=== PATIENT | female | born 1980 | race Caucasian/White ===

== ENCOUNTER 2021-05-11 13:19 | Outpatient (CLI) | payer OTHER, SELFPAY ==
[2021-05-11 15:03] LABS: Hepatitis B Surface Anti Res Negative
== END 2021-05-11 13:20 | disposition home or self-care (01) ==
LOC: ANHLAB 13:23
PROVIDERS: Visit Provider Surgery
DX: Z11.59 Encounter for screening for other viral diseases (principal)
CPT/HCPCS: 36415; 86706

== ENCOUNTER 2022-04-12 12:07 | Emergency (ER) | payer OTHER, SELFPAY ==
[2022-04-12] VITALS (9 sets, daily range): BP systolic 72–200; BP diastolic 57–94; PULSE 78–92; RESP 15–27; TEMP 36.1; O2SAT 98–100
--- NOTE | ~2022-04-12 | XR_ITS ---
EXAMINATION: XR chest 1V portable 04/12/2022 12:54 INDICATION: Upper tension, dizziness and chest spine PROCEDURE: AP portable chest COMPARISON: 02/08/2022 FINDINGS: The lungs are clear. The cardiomediastinal silhouette is within normal limits. There are no pleural effusions. There is no pneumothorax suspected. IMPRESSION: 1: NO ACUTE CARDIOPULMONARY DISEASE. Reviewed, dictated and finalized at location B.
--- NOTE | 2022-04-12 12:09 | ECG_ITS ---
Measurements Intervals [place] Rate: 92 P: 38 CT: 134 QRS: 2 QRSD: 80 T: 37 QT: 342 QTc: 423 Interpretive Statements SINUS RHYTHM LOW QRS VOLTAGE IN PRECORDIAL LEADS [QRS DEFLECTION < 1.0 mV IN CHEST LEADS] NO PREVIOUS ECG AVAILABLE FOR COMPARISON Electronically Signed On 04-12-2022 22:13:33 CDT by Pebbles Haskins M.D.
[2022-04-12 13:28] LABS: Basophils Absolute Auto 0.1 K/mm3 (0.0-0.1); Eosinophils Absolute Auto 0.2 K/mm3 (0-0.3); Eosinophils Percent Auto 1.9 % (0-4.4); Hematocrit 37.5 % (37.0-47.0); Hemoglobin 12.1 g/dL (12.0-15.0); Immature Granulocyte Absolute 0.04 K/mm3 (0.00-0.031); Immature Granulocyte Percent A 0.4 % (0-0.5); Lymphocytes Absolute Auto 2.19 K/mm3 (0.9-3.2); Lymphocytes Percent Auto 24.5 % (18.3-44.2); Mean Corpuscular HGB Conc 32.3 g/dl (32-36); Mean Corpuscular Hemoglobin 29.2 pg (26-34); Mean Corpuscular Volume 90.4 fl (80-100); Mean Platelet Volume 9.3 fl (7.4-10.4); Monocytes Absolute Auto 0.6 K/mm3 (0.1-0.6); Monocytes Percent Auto 6.6 % (2.6-8.5); Neutrophils Absolute Auto 5.9 K/mm3 (1.3-6.7); Neutrophils Percent Auto 65.6 % (45.5-73.1); Platelet Count Result 356 k/mm3 (150-375); Red Blood Count 4.15 M/mm3 (4.2-5.4); Red Cell Distribution Width 11.4 % (11.5-14.5); White Blood Count 8.9 K/mm3 (4.5-10.0)
[2022-04-12 13:32] LABS: Alanine Aminotransferase 16 U/L (6-35); Albumin Level 3.6 g/dL (3.5-5.1); Alkaline Phosphatase 81 U/L (38-126); Anion Gap 6 mmol/L (8-16); Aspartate Amino Transferase 25 U/L (14-36); Bilirubin,Total 0.3 mg/dL (0.2-1.3); Blood Urea Nitrogen 23 mg/dL (7-17); Calcium 8.7 mg/dL (8.4-10.2); Carbon Dioxide 25 mmol/L (22-30); Chloride 101 mmol/L (98-107); Estimated CRCL calculation 53 ml/min; Estimated Glomerular Filt Rate 45; Glucose 188 mg/dL (65-110); Potassium 5.1 mmol/L (3.4-5.0); Sodium 132 mmol/L (137-145)
[2022-04-12 13:45] LABS: NT Pro B Type Natriuretic Pept 111 pg/mL (5-100); Troponin I < 0.012 ng/mL (0.000-0.034)
--- NOTE | 2022-04-12 14:00 | ED.GENADULT ---
HPI - General Adult General Chief complaint: Arrhythmia/Palpitations Stated complaint: palpations Time Seen by Provider: 04/12/22 12:19 Source: patient Mode of arrival: ambulatory Limitations: no limitations History of Present Illness HPI narrative: 42-year-old with a history of hypertension, hyperlipidemia, diabetes, CKD here with complaints of having high blood pressure, not feeling well since this morning. Patient states for the past 1 week she has been having high blood pressure and was recently started on Coreg. Patient states that while she was at work her blood pressure was found to be high. She denied any chest pain. Onset (ago): week(s) (1) Exacerbating factors: none Associated symptoms: denies other symptoms Related Data Home Medications Medication Instructions Recorded Confirmed atorvastatin 20 mg tablet tablet 04/12/22 bupropion HCl (smoking deter) 150 tablet PO 04/12/22 mg tablet,12 hr sustained-release(smoking deterrent) carvedilol 6.25 mg tablet tablet 04/12/22 clonazepam 0.5 mg tablet tablet 04/12/22 isosorbide mononitrate 30 mg tablet PO 04/12/22 tablet,extended release 24 hr losartan 100 tablet 04/12/22 mg-hydrochlorothiazide 25 mg tablet venlafaxine 150 mg cap PO 04/12/22 04/12/22 capsule,extended release 24 hr Allergies Allergy/AdvReac Type Severity Reaction Status Date / Time propoxyphene AdvReac Itching Verified 04/12/22 12:20 [From Claire-N 100] Review of Systems Review of Systems: All systems reviewed & are unremarkable except as noted in HPI and below Constitutional: Constitutional: Reports no additional constitutional complaints Eyes: Eyes: Reports no additional eye complaints ENT: Reports system reviewed and no additional complaints, except as documented Cardiovascular: Cardiovascular: Reports as per HPI Respiratory: Respiratory: Reports no additional respiratory complaints Gastrointestinal: Gastrointestinal: Reports as per HPI Musculoskeletal: Musculoskeletal: Reports no additional musculoskeletal complaints Neurologic: Reports system reviewed and no additional complaints, except as documented Exam Narrative: GENERAL: Well-appearing, well-nourished, and in no acute distress. HEAD: Normocephalic, atraumatic. EYES: PERRLA and EOMI. NECK: Supple. CHEST: Clear to auscultation. No respiratory distress. HEART: Regular rate and rhythm. No murmur heard. Normal peripheral pulses. ABDOMEN: Soft, nontender, nondistended, normal active bowel sounds. EXTREMITIES: Normal range of motion. No edema. SKIN: Warm, dry, no rash. NEURO: No focal deficits. Alert and oriented x3. PSYCH: Normal mood and affect. Course Course Emergency Course: Patient feeling much better. Informed her about her lab work, x-ray findings. Advised her to continue her home medications, follow-up with her primary doctor Vital Signs Vital signs: Vital Signs Temperature 36.1 C L 04/12/22 12:13 Pulse Rate 92 04/12/22 12:13 Respiratory Rate 16 04/12/22 12:13 Blood Pressure 200/75 H 04/12/22 12:13 Pulse Oximetry 100 04/12/22 12:13 Oxygen Delivery Room Air 04/12/22 12:13 Temperature 36.1 C L 04/12/22 12:13 Pulse Rate 78 04/12/22 12:22 Respiratory Rate 16 04/12/22 12:22 Blood Pressure 197/79 H 04/12/22 12:22 Pulse Oximetry 98 04/12/22 12:22 Oxygen Delivery Room Air 04/12/22 12:13 Medical Decision Making Medical Records Medical records reviewed: Yes I reviewed the external patient's medical records. Vital Signs Vital Signs: Vital Signs Temperature 36.1 C L 04/12/22 12:13 Pulse Rate 92 04/12/22 12:13 Respiratory Rate 16 04/12/22 12:13 Blood Pressure 200/75 H 04/12/22 12:13 Pulse Oximetry 100 04/12/22 12:13 Oxygen Delivery Room Air 04/12/22 12:13 Temperature 36.1 C L 04/12/22 12:13 Pulse Rate 78 04/12/22 12:22 Respiratory Rate 16 04/12/22 12:22 Blood Pressure 197/79 H 04/12/22 12:22 Pulse Oximetr
== END 2022-04-12 14:14 | disposition home or self-care (01) ==
PROVIDERS: Emergency Provider Family Medicine
DX: I12.9 Hypertensive chronic kidney disease with stage 1 through stage 4 chronic kidney disease, or unspecified chronic kidney disease (principal); F41.9 Anxiety disorder, unspecified; E11.22 Type 2 diabetes mellitus with diabetic chronic kidney disease; N18.9 Chronic kidney disease, unspecified; E78.5 Hyperlipidemia, unspecified
CPT/HCPCS: 36415; 71045; 80053; 83880; 84484; 85025; 93005; 99284

== ENCOUNTER 2022-04-20 10:56 | Outpatient (CLI) | payer OTHER, SELFPAY ==
--- NOTE | ~2022-04-20 | US_ITS ---
EXAMINATION: US thyroid DATE: 04/20/2022 11:28 INDICATION: Thyroid nodule. TECHNIQUE: Multiple ultrasound images of the thyroid were obtained. COMPARISON: None. FINDINGS: The right thyroid lobe measures 5.9 x 1.8 x 1.5 cm. The left thyroid lobe measures 4.9 x 1.4 x 1.5 c m. In the right thyroid lobe, there is a 14 mm mixed cystic and solid, hypoechoic, wider than tall n odule with lobulated margin without echogenic foci (TR4). In the left thyroid lobe, there is a 10 mm solid, hypoechoic, wider than tall nodule with lobulated margin without echogenic foci (TR4). IMPRESSION: 1. Thyroid nodules. Thyroid ultrasound is recommended in one year. Reviewed, dictated and finalized at location B.
== END 2022-04-20 10:57 | disposition home or self-care (01) ==
PROVIDERS: PCP Hospitalist; Visit Provider Nurse Practitioner
DX: E04.2 Nontoxic multinodular goiter (principal)
CPT/HCPCS: 76536

== ENCOUNTER 2022-05-02 07:24 | Outpatient (CLI) | payer OTHER, SELFPAY ==
[2022-05-02 08:59] LABS: Hemoglobin A1C 9.9 % (<5.7)
[2022-05-02 09:00] LABS: Alanine Aminotransferase 14 U/L (6-35); Albumin Level 3.8 g/dL (3.5-5.1); Alkaline Phosphatase 80 U/L (38-126); Anion Gap 6 mmol/L (8-16); Aspartate Amino Transferase 16 U/L (14-36); Bilirubin,Total 0.3 mg/dL (0.2-1.3); Blood Urea Nitrogen 25 mg/dL (7-17); Carbon Dioxide 26 mmol/L (22-30); Chloride 104 mmol/L (98-107); Cholesterol 148 mg/dL (0-200); Estimated Glomerular Filt Rate 38; Glucose 255 mg/dL (65-110); HDL Direct 37 mg/dL; Potassium 5.4 mmol/L (3.4-5.0); Sodium 136 mmol/L (137-145); Triglycerides 82 mg/dL (<150)
[2022-05-02 09:11] LABS: Creatinine Urine 97.7 mg/dL
[2022-05-02 09:11] LABS: LDL Cholesterol Direct 69 mg/dL
[2022-05-02 09:22] LABS: Free T4 Free Thyroxine 1.27 ng/mL (0.78-2.19)
[2022-05-02 10:33] LABS: MALB Creatinine Ratio 1150.4 mg/g (0-30)
[2022-05-04 21:01] LABS: Triiodothyronine T3 Free 3.2 pg/mL (2.3-4.2)
[2022-05-05 07:30] LABS: Thyroid Peroxidase Antibodies <1 IU/mL (<9)
== END 2022-05-02 07:25 | disposition home or self-care (01) ==
PROVIDERS: PCP Hospitalist; Visit Provider Nurse Practitioner
DX: E04.1 Nontoxic single thyroid nodule (principal); E78.5 Hyperlipidemia, unspecified; E10.65 Type 1 diabetes mellitus with hyperglycemia
CPT/HCPCS: 36415; 80053; 80061; 82043; 83036; 84439; 84443; 84481; 86376

== ENCOUNTER 2022-11-20 12:52 | Emergency (ER) | payer MEDICAID, SELFPAY ==
[2022-11-20 13:10] VITALS: BP 136/57; PULSE 69; RESP 18; TEMP 36.7; O2SAT 93
--- NOTE | 2022-11-20 13:14 | ED.URI ---
HPI - URI/Sore Throat General Chief Complaint: Upper Respiratory Infection Stated Complaint: Nausea,Fatigue,Weakness,SOB,Cough Time Seen by Provider: 11/20/22 13:35 Source: patient and RN notes reviewed Mode of arrival: ambulatory Limitations: no limitations History of Present Illness HPI Narrative: 42-year-old female presents with concern for 2 week history of cough, general weakness, body aches, fatigue, difficulty sleeping due to cough. She reports shortness of breath. She reports history of smoking and asthma. She reports she has been taking [id number] medications with little relief, she ordered and nebulizer from [employer] and last used that last night. MD elicited complaint: cough Related Data Home Medications Medication Instructions Recorded Confirmed atorvastatin 20 mg tablet 20 tablet PO DAILY 04/12/22 11/20/22 bupropion HCl (smoking deter) 150 150 mg PO DAILY 04/12/22 11/20/22 mg tablet,12 hr sustained-release(smoking deterrent) carvedilol 6.25 mg tablet 6.25 tablet PO DAILY 04/12/22 11/20/22 clonazepam 0.5 mg tablet 0.5 tablet PO DAILY 04/12/22 11/20/22 isosorbide mononitrate 30 mg 30 mg PO DAILY 04/12/22 11/20/22 tablet,extended release 24 hr venlafaxine 150 mg 150 mg PO DAILY 04/12/22 11/20/22 capsule,extended release 24 hr amlodipine 10 mg tablet 10 mg PO DAILY 11/20/22 11/20/22 Allergies Allergy/AdvReac Type Severity Reaction Status Date / Time propoxyphene AdvReac Itching Verified 11/20/22 13:20 [From Claire-N 100] Review of Systems Review of Systems: CONSTITUTIONAL: Reports fatigue, malaise, generalized weakness EYES: Denies visual changes, redness, or discharge. ENT: Reports rhinorrhea, congestion. Denies sinus pain, otalgia and sore throat. CARDIOVASCULAR: Denies chest pain, palpitations, or edema. RESPIRATORY: Reports cough, dyspnea. GASTROINTESTINAL: Denies abdominal pain, nausea, vomiting, diarrhea SKIN: Denies rash or itching. MUSCULOSKELETAL: Reports myalgia. NEUROLOGIC: Denies headache. All systems reviewed & are unremarkable except as noted in HPI and below [facility] Comments At time of signature, agree with nursing past medical, surgical, social and family history. There is no relevant family history pertinent to the presenting complaint Exam Narrative: GENERAL: Well-appearing, well-nourished, and in no acute distress. HEAD: Normocephalic EYES: PERRLA, conjunctivae clear ENT: Nares clear, turbinates edematous and erythematous. Mucous membranes moist. TM pearly echevarria with dull light reflex bilaterally; no tragal tenderness. Oropharynx not erythematous without lesions. Tonsils not enlarged and without exudate, no drooling, no hoarseness, no trismus, uvula midline. NECK: Supple. No lymphadenopathy CHEST: Aeration fair, otherwise Clear to auscultation, breath sounds equal. No wheezing, rhonchi, rales, or stridor. No respiratory distress, speaks in full sentences. Cough noted HEART: Regular rate and rhythm. No murmur heard. SKIN: Warm, dry, no rash. NEURO: Alert and oriented x3. PSYCH: Normal mood and affect Course Course Emergency Course: Patient is aware of diagnosis, understands and agrees to treatment plan. Anticipatory guidance given. Patient agrees to follow-up as directed and is aware of reasons to seek care at the emergency department. Portions of this record may have been created with voice recognition software Level of Care: Express Care Visit Reevaluation(s) Reevaluation #1: Aeration improved, SpO2 increased to 96% after DuoNeb treatment. Discussed interaction between Albuterol and Carvedilol, advised to start steroid and follow-up with her PCP regarding ongoing plan of care. Date: 11/20/22 Time: 14:30 Vital Signs Vital signs: Reviewed. MDM - URI/Sore Throat MDM Narrative Medical decision making narrative: Differential diagnosis considered: Adorno virus, strep pharyngitis, allergic rhinitis, upper respiratory tract infection, sinusitis, rhinosin
[2022-11-20] MEDS: IPRATROPIUM BR 0.02% INH SOLN 0.5 MG/2.5 ML VIAL INHALATION (14:04)
[2022-11-20] MEDS: ALBUTEROL SULFATE NEB 2.5 MG/3 ML INH INHALATION (14:04)
[2022-11-20 14:10] VITALS: O2SAT 93
[2022-11-20 14:46] VITALS: PULSE 66; O2SAT 96
== END 2022-11-20 14:37 | disposition home or self-care (01) ==
PROVIDERS: Emergency Provider Nurse Practitioner; PCP Hospitalist
DX: J40 Bronchitis, not specified as acute or chronic (principal); J32.9 Chronic sinusitis, unspecified
CPT/HCPCS: 94640; 99213; G0463

== ENCOUNTER 2023-03-07 12:00 | Outpatient (CLI) | payer OTHER, SELFPAY ==
[2023-03-07 12:43] LABS: Alanine Aminotransferase 38 U/L (6-35); Albumin Level 4.2 g/dL (3.5-5.1); Alkaline Phosphatase 98 U/L (38-126); Anion Gap 9 mmol/L (8-16); Aspartate Amino Transferase 27 U/L (14-36); Bilirubin,Total 0.4 mg/dL (0.2-1.3); Blood Urea Nitrogen 33 mg/dL (7-17); Calcium 9.3 mg/dL (8.4-10.2); Carbon Dioxide 27 mmol/L (22-30); Chloride 100 mmol/L (98-107); Cholesterol 165 mg/dL (0-200); Estimated Glomerular Filt Rate 33; Glucose 182 mg/dL (65-110); HDL Direct 58 mg/dL; Potassium 4.3 mmol/L (3.4-5.0); Sodium 136 mmol/L (137-145); Triglycerides 98 mg/dL (<150)
[2023-03-07 12:54] LABS: LDL Cholesterol Direct 76 mg/dL
[2023-03-07 13:11] LABS: Creatinine Urine 61.2 mg/dL
[2023-03-07 13:37] LABS: Free T4 Free Thyroxine 1.22 ng/mL (0.78-2.19)
[2023-03-07 14:37] LABS: Hemoglobin A1C 9.3 % (<5.7)
[2023-03-07 16:13] LABS: MALB Creatinine Ratio 1385.5 mg/g (0-30); Microalbumin Urine Random 847.9 mg/L (0-16.7)
== END 2023-03-07 12:01 | disposition home or self-care (01) ==
LOC: ANHLAB 12:02
PROVIDERS: PCP Hospitalist; Visit Provider Internal Medicine Endocrinology, Diabetes & Metabolism
DX: E10.65 Type 1 diabetes mellitus with hyperglycemia (principal); E78.5 Hyperlipidemia, unspecified; E04.1 Nontoxic single thyroid nodule
CPT/HCPCS: 36415; 80053; 80061; 82043; 83036; 84439; 84443

== ENCOUNTER 2023-06-02 15:31 | Emergency (ER) | payer OTHER, SELFPAY ==
--- NOTE | 2023-06-02 15:32 | ED.SKABFB ---
HPI - Skin/Abscess/Foreign Bdy General Chief complaint: Skin/Abscess/Foreign Body Stated complaint: Insect Bite Lt Breast Time Seen by Provider: 06/02/23 15:32 Source: patient Mode of arrival: ambulatory Limitations: no limitations History of Present Illness HPI narrative: Yudelka is a 43-year-old female patient presenting to the clinic today with complaints of a insect bite to her left breast. She reports she noticed a spider night and had a red area to the top of her left breast the next day. She reports that this came up to be a pustule and she popped it. Is having some redness and sharp pain at times. No fever or chills. She is type 1 diabetic Related Data Home Medications Medication Instructions Recorded Confirmed atorvastatin 20 mg tablet 20 tablet PO DAILY 04/12/22 06/02/23 bupropion HCl (smoking deter) 150 150 mg PO DAILY 04/12/22 06/02/23 mg tablet,12 hr sustained-release(smoking deterrent) carvedilol 6.25 mg tablet 6.25 tablet PO DAILY 04/12/22 06/02/23 clonazepam 0.5 mg tablet 0.5 tablet PO BID 04/12/22 06/02/23 isosorbide mononitrate 30 mg 30 mg PO DAILY 04/12/22 06/02/23 tablet,extended release 24 hr venlafaxine 150 mg 150 mg PO DAILY 04/12/22 06/02/23 capsule,extended release 24 hr amlodipine 10 mg tablet 10 mg PO DAILY 11/20/22 06/02/23 furosemide 40 mg tablet 40 mg PO DAILY 06/02/23 06/02/23 hydrochlorothiazide 25 mg tablet 25 mg PO DAILY 06/02/23 06/02/23 insulin lispro 100 unit/mL See Rx Instructions .Route .COMPLEX 06/02/23 06/02/23 subcutaneous solution (Humalog U-100 Insulin) insulin pump cart,automated,BT 06/02/23 06/02/23 (Omnipod 5 G6 Pods (Gen 5) subcutaneous cartridge) insulin pump cartridge,automated 06/02/23 06/02/23 dose,BT with controller subcutaneous (Omnipod 5 G6 Intro Kit (Gen 5) subcutaneous cartridge with controller) montelukast 5 mg chewable tablet 5 mg PO HS 06/02/23 06/02/23 trazodone 100 mg tablet 100 mg PO HS 06/02/23 06/02/23 Allergies Allergy/AdvReac Type Severity Reaction Status Date / Time propoxyphene AdvReac Mild Itching Verified 06/02/23 15:32 [From Mariaat-N 100] Review of Systems Review of Systems: Pertinent positives per HPI. Patient denies any fever, chills, rash, headache, visual changes, dizziness, cough, runny nose, sore throat, shortness of breath, chest pain, palpitations, nausea, vomiting, diarrhea, constipation, abdominal pain, or any urinary issues. [facility] Comments At the time of my signature, I reviewed and agree with the nursing past medical, surgical, social, and family history. There is no relevant family history pertinent to the patient complaint. Exam Narrative: General: Well-developed, well nourished, in no apparent distress Head: Normocephalic, atraumatic. Cardio: Regular rate and rhythm, s1 and s2 normal, no murmur appreciated. Resp: Clear to auscultation bilaterally, no rhonchi, rales, wheezing or rubs. Integumentary: [place], warm, and dry, redness with scabbed over pustule with 1 cm induration, tender to palpation with mild erythema, no discharge to the top of the left breast at 12:00 p.m. of the nipple Course Course Emergency Course: Portions of this record may have been created with voice recognition software. Level of Care: Express Care Visit Vital Signs Vital signs: Vital signs reviewed MDM - Skin/Abscess/Foreign Bdy MDM Narrative Medical decision making narrative: At the time of visit patient is resting comfortably on exam table. I suspect patient has a localized bacterial skin infection. Since she is diabetic I will place her on doxycycline. Supportive measures were discussed with the patient and she voiced understanding discharge instructions agrees to treatment plan. Differential Diagnosis Differential diagnosis: Likely abscess of skin or subcutaneous tissue, cellulitis, eczema, insect bites, impetigo and contact dermatitis Discharge Plan Discharge Clinical I
[2023-06-02 15:39] VITALS: BP 168/65; PULSE 85; RESP 16; TEMP 36.7; O2SAT 99
== END 2023-06-02 15:51 | disposition home or self-care (01) ==
PROVIDERS: Emergency Provider Nurse Practitioner Family; PCP Internal Medicine
DX: L08.9 Local infection of the skin and subcutaneous tissue, unspecified (principal); B96.89 Other specified bacterial agents as the cause of diseases classified elsewhere; E78.00 Pure hypercholesterolemia, unspecified; I12.9 Hypertensive chronic kidney disease with stage 1 through stage 4 chronic kidney disease, or unspecified chronic kidney disease; E10.22 Type 1 diabetes mellitus with diabetic chronic kidney disease; N18.30 Chronic kidney disease, stage 3 unspecified; F41.9 Anxiety disorder, unspecified
CPT/HCPCS: 99213; G0463

== ENCOUNTER 2023-10-26 11:30 | Emergency (ER) | payer OTHER, SELFPAY ==
--- NOTE | 2023-10-26 11:41 | ED.FEMALEGU ---
HPI - Female Genitourinary General Chief complaint: Urogenital-Female Stated complaint: uti symptoms Time Seen by Provider: 10/26/23 11:40 Source: patient Mode of arrival: ambulatory Limitations: no limitations History of Present Illness HPI Narrative: Milagro is a 43-year-old female patient presents to the clinic today with complaints of possible urinary tract infection. She reports she has had symptoms for 3 days. Complaints of burning, frequency, and pain in the lower abdomen. Also reports foul odor. No fever or chills. Denies any back pain. Is type 1 diabetic. Related Data Home Medications Medication Instructions Recorded Confirmed atorvastatin 20 mg tablet 20 tablet PO DAILY 04/12/22 10/26/23 bupropion HCl (smoking deter) 150 150 mg PO DAILY 04/12/22 10/26/23 mg tablet,12 hr sustained-release(smoking deterrent) carvedilol 6.25 mg tablet 6.25 tablet PO DAILY 04/12/22 10/26/23 clonazepam 0.5 mg tablet 0.5 tablet PO BID 04/12/22 10/26/23 isosorbide mononitrate 30 mg 30 mg PO DAILY 04/12/22 10/26/23 tablet,extended release 24 hr venlafaxine 150 mg 150 mg PO DAILY 04/12/22 10/26/23 capsule,extended release 24 hr amlodipine 10 mg tablet 10 mg PO DAILY 11/20/22 10/26/23 insulin lispro 100 unit/mL See Rx Instructions .Route .COMPLEX 06/02/23 10/26/23 subcutaneous solution (Humalog U-100 Insulin) insulin pump cart,automated,BT 06/02/23 10/26/23 (Omnipod 5 G6 Pods (Gen 5) subcutaneous cartridge) insulin pump cartridge,automated 06/02/23 10/26/23 dose,BT with controller subcutaneous (Omnipod 5 G6 Intro Kit (Gen 5) subcutaneous cartridge with controller) levonorgestrel 17.5 mcg/24 hrs See Rx Instructions .Route .COMPLEX 06/02/23 10/26/23 (5yrs) 19.5mg intrauterine device (Kyleena) montelukast 5 mg chewable tablet 5 mg PO HS 06/02/23 10/26/23 trazodone 100 mg tablet 100 mg PO HS 07/29/23 12/22/23 chlorthalidone 25 mg tablet 25 mg PO DAILY 10/26/23 10/26/23 Allergies Allergy/AdvReac Type Severity Reaction Status Date / Time doxycycline Allergy Other Verified 10/26/23 11:58 propoxyphene AdvReac Mild Itching Verified 06/02/23 15:32 [From [facility]-N 100] Review of Systems Review of Systems: Pertinent positives per HPI. Patient denies any fever, chills, rash, headache, visual changes, dizziness, cough, runny nose, sore throat, shortness of breath, chest pain, palpitations, nausea, vomiting, diarrhea, constipation [facility] Comments At the time of my signature, I reviewed and agree with the nursing past medical, surgical, social, and family history. There is no relevant family history pertinent to the patient complaint. Exam Narrative: General: Well-developed, well nourished, in no apparent distress. Head: Normocephalic, atraumatic. Cardio: Regular rate and rhythm, s1 and s2 normal, no murmur appreciated. Resp: Clear to auscultation bilaterally, no rhonchi, rales, wheezing or rubs. Abdomen: Soft, pliable, bowel sounds present in all quadrants, non-tender to palpation, no organomegly, no CVAT tenderness. Course Course Emergency Course: Portions of this record may have been created with voice recognition software. Level of Care: Express Care Visit Vital Signs Vital signs: Vital Signs Temperature 36.3 C L 10/26/23 11:57 Pulse Rate 88 10/26/23 11:57 Respiratory Rate 18 10/26/23 11:57 Blood Pressure 149/69 H 10/26/23 11:57 Pulse Oximetry 97 10/26/23 11:57 Oxygen Delivery Room Air 10/26/23 11:57 Temperature 36.3 C L 10/26/23 11:58 Pulse Rate 88 10/26/23 11:58 Respiratory Rate 18 10/26/23 11:58 Blood Pressure 149/69 H 10/26/23 11:58 Pulse Oximetry 97 10/26/23 11:58 Oxygen Delivery Room Air 10/26/23 11:58 Vital signs reviewed MDM - Female Genitourinary MDM Narrative Medical decision making narrative: At the time of visit patient is resting comfortably on the exam table. Patient appears to be nontoxic. UA dip posi
[2023-10-26 11:57] VITALS: BP 149/69; PULSE 88; RESP 18; TEMP 36.3; O2SAT 97
[2023-10-26 11:58] VITALS: BP 149/69; PULSE 88; RESP 18; TEMP 36.3; O2SAT 97
== END 2023-10-26 12:05 | disposition home or self-care (01) ==
PROVIDERS: Emergency Provider Nurse Practitioner Family; PCP Nurse Practitioner Family
DX: N30.01 Acute cystitis with hematuria (principal); Z79.899 Other long term (current) drug therapy; Z79.4 Long term (current) use of insulin
CPT/HCPCS: 81003; 87077; 87086; 87186; 99213; G0463

== ENCOUNTER 2023-11-23 14:59 | Inpatient (IN) | payer OTHER, SELFPAY ==
[2023-11-23] VITALS (65 sets, daily range): BP systolic 82–121; BP diastolic 43–74; PULSE 42–60; RESP 14–31; TEMP 34.7–35.8; O2SAT 82–95
--- NOTE | ~2023-11-23 | XR_ITS ---
Portable chest x-ray Comparison: 11/25/2023 Clinical History: Respiratory failure Findings: Endotracheal tube, NG tube are in satisfactory positions. Left-sided central venous line i s unchanged. Small right pleural effusion present. Moderate pulmonary edema pattern present. Cardiom ediastinal silhouette is stable. Bones and soft tissues are unremarkable. Impression: Small right pleural effusion with moderate pulmonary edema pattern. Support tubes, as above. Reviewed, dictated and finalized at location . YSIS EQUIPMENT TECHNICIAN Impression: Small right pleural effusion with moderate pulmonary edema pattern. Support tubes, as above.
--- NOTE | ~2023-11-23 | XR_ITS ---
EXAMINATION: XR chest 1V portable DATE: 11/23/2023 15:06 INDICATION: Intubation TECHNIQUE: frontal view of the chest was obtained. COMPARISON: Chest radiograph dated 04/12/2022 FINDINGS: Endotracheal tube tip 5 mm above the indra. Nasogastric tube extends into the stomach with proximal side-port below level of the diaphragm and with distal tip extending beyond the caudal margin of the wurga-qy-xnea. Extensive patchy bilateral airspace opacities which could represent moderate pulmonary edema or multi focal pneumonia. No pleural effusion or pneumothorax. Heart size is normal. Cholecystectomy clips in right upper quadrant. IMPRESSION: 1. Endotracheal tube tip 5 mm above the indra and nasogastric tube in stomach. 2. Extensive patchy bilateral airspace opacities most suspicious for moderate pulmonary edema with di fferential including pneumonia. Reviewed, dictated and finalized at location A. O WELDER IMPRESSION: 1. Endotracheal tube tip 5 mm above the indra and nasogastric tube in stomach. 2. Extensive patchy bilateral airspace opacities most suspicious for moderate p ulmonary edema with differential including pneumonia.
--- NOTE | ~2023-11-23 | XR_ITS ---
EXAMINATION: XR abdomen gastric tube rechec INDICATION: Check PEG tube placement TECHNIQUE: Portable AP KUB-NG at 0105 hours COMPARISON: None available FINDINGS: The PEG tube projects over the stomach. There are no dilated loops of bowel. Cholecystectom y clips are noted. IMPRESSION: 1. PEG tube projects over the stomach. Reviewed, dictated and finalized at location A. E CLINICIAN
--- NOTE | ~2023-11-23 | XR_ITS ---
Portable chest x-ray Comparison: 11/29/2023 Clinical History: Mechanical ventilation Findings: Endotracheal tube, NG tube, and bilateral central venous lines are in place. Small right p leural effusion present. There is mild to moderate palmar edema pattern, similar to mildly improved. Cardiomediastinal silhouette is stable. Bones and soft tissues are unremarkable. Impression: Mild to moderate pulmonary edema pattern is similar to minimally improved. Small right pleural effusion. Support tubes, as above. Reviewed, dictated and finalized at location . ASSEMBLER Impression: Mild to moderate pulmonary edema pattern is similar to minimally improved. Small right pleural effusion. Support tubes, as above.
--- NOTE | ~2023-11-23 | CT_ITS ---
EXAMINATION: CT chest abdomen pelvis wo con DATE: 12/09/2023 09:33 INDICATION: Respiratory failure, abdominal pain TECHNIQUE: Transaxial computed tomographic images of the chest, abdomen, and pelvis were obtained wit hout intravenous contrast. Oral contrast was administered through the PEG tube. The dose-length produ ct (DLP) was 1804.80 mGy-cm. Automated exposure control and iterative reconstruction technique were e mployed. COMPARISON: 12/02/2023 FINDINGS: CHEST CT: There are dependent airspace opacities of the lungs with interval worsening in the left lower lobe. T here are patchy airspace opacities of the upper lobes. There is mild interlobular septal thickening o f the lungs. A tracheostomy is in place. There are no pathologically enlarged thoracic lymph nodes. T he heart size is normal. There is calcified coronary artery atherosclerosis. There are small pleural effusions. No pneumothorax is identified. A left internal jugular catheter ends with its tip in the l eft brachiocephalic vein. A right internal jugular central venous catheter ends with its tip at the s uperior cavoatrial junction. ABDOMEN/PELVIS CT: A PEG tube has been inserted. Contrast material injected through the PEG tube is seen within the stom ach. There is no contrast extravasation. Changes of cholecystectomy are noted. The liver, spleen, vasquez creas, and adrenal glands are normal. The kidneys are unremarkable. No pathologically enlarged abdomi nal or pelvic lymph nodes are identified. No free intraperitoneal gas or evidence of bowel obstructio n. The bladder is decompressed by Mijares catheter. An IUD is in position. The appendix is normal. IMPRESSION: 1. Dependent airspace opacities of the lungs with slight worsening in the left lower lobe, consistent with pneumonia and/or atelectasis. 2. Minimal patchy airspace opacities of the upper lobes, consistent with pneumonia. 3. Interval PEG tube insertion without evidence of extravasation of injected contrast material. Reviewed, dictated and finalized at location F. AIGN ASSISTANT IMPRESSION: 1. Dependent airspace opacities of the lungs with slight worsening in the left lower lobe, consistent with pneumonia and/or atelectasis. 2. Minimal patchy airspace opacities of the upper lobes, consistent with pneumo sridevi. 3. Interval PEG tube insertion without evidence of extravasation of injected co ntrast material.
--- NOTE | ~2023-11-23 | XR_ITS ---
XR chest 1V portable DATE: 11/25/2023 05:43 INDICATION: Respiratory failure TECHNIQUE: Portable AP chest 11/25/2023 at 0528 hours COMPARISON: 11/24/2023 portable AP chest at 0805 hours FINDINGS: Prominent diffuse stable or mildly diminished bilateral patchy consolidating pulmonary infi ltrates are again noted, in addition to pleural effusions, right greater than left, prominence of the minor fissure, consistent with subpleural edema. Left internal jugular central venous catheter tip overlies the left innominate vein. ET tube tip 4.5 cm above indra in satisfactory position. NG tube in stomach. IMPRESSION: Persistent extensive diffuse bilateral pulmonary infiltrates, stable or mildly improved s rey 11/24/2023 Reviewed, dictated and finalized at location A. TION AND MEASUREMENT TECHNICIAN IMPRESSION: Persistent extensive diffuse bilateral pulmonary infiltrates, stabl e or mildly improved since 11/24/2023
--- NOTE | ~2023-11-23 | XR_ITS ---
EXAMINATION: XR chest 1V portable DATE: 12/16/2023 05:46 INDICATION: Pulmonary edema. TECHNIQUE: A single frontal view of the chest was obtained. COMPARISON: Chest single view 12/14/2023, chest CT 12/09/2023 FINDINGS: There is a diffuse interstitial pattern in the lungs. There are airspace opacities in the m id and lower lung zones. There is a small right pleural effusion. No pneumothorax. The heart size is normal. There is a tracheostomy tube in expected position. A right internal jugular central venous ca theter is seen with tip at the superior cavoatrial junction. IMPRESSION: 1. Diffuse lung disease with worsening in right lower lung zone, consistent with pulmonary edema vers us pneumonia. 2. Small right pleural effusion. Reviewed, dictated and finalized at location A. N COMBINER IMPRESSION: 1. Diffuse lung disease with worsening in right lower lung zone, consistent wit h pulmonary edema versus pneumonia. 2. Small right pleural effusion.
--- NOTE | ~2023-11-23 | XR_ITS ---
EXAMINATION: XR chest 1V portable INDICATION: Respiratory failure TECHNIQUE: Portable AP chest at 0101 hours COMPARISON: 12/08/2023 FINDINGS: A tracheostomy is in expected position. A left internal jugular central venous catheter end s with its tip in the left brachiocephalic vein. A right internal jugular central venous catheter end s with its tip at the superior cavoatrial junction. The cardiomediastinal silhouette is stable. No pl eural effusion or pneumothorax. There are diffuse interstitial and airspace opacities with slight inc rease. IMPRESSION: 1. Diffuse lung disease with interval worsening, consistent with pneumonia and/or pulmonary edema. Reviewed, dictated and finalized at location F. STOS SHINGLE ROOFER IMPRESSION: 1. Diffuse lung disease with interval worsening, consistent with pneumonia and/ or pulmonary edema.
--- NOTE | ~2023-11-23 | CT_ITS ---
EXAMINATION: 1. CT brain & sinus wo con DATE: 12/02/2023 08:19 SIMULATION EDUCATOR INDICATION: Fevers TECHNIQUE: Computed tomography (CT) of the head was performed without intravenous contrast. CT of the paranasal sinuses was performed without intravenous contrast. The dose-length product was 892.31 mGy -cm. Automated exposure control and iterative reconstruction technique were employed. COMPARISON: CT dated 11/27/2023. FINDINGS: Head CT: Normal brain parenchymal volume. No acute intracranial hemorrhage, infarction, mass or mass effect. N o ventriculomegaly or midline shift. Basilar cisterns are patent. Paranasal sinuses and mastoids are pneumatized. No significant mucosal thickening. Sinuses CT: No significant mucosal thickening. There is pneumatization of the paranasal sinuses and mastoids. No significant nasal septal deviation. Ostiomeatal units are patent. IMPRESSION: 1. No acute intracranial abnormality. No evidence for significant sinus disease. Reviewed, dictated and finalized at location A. LATION EDUCATOR IMPRESSION: 1. No acute intracranial abnormality. No evidence for significant sinus disease .
--- NOTE | ~2023-11-23 | XR_ITS ---
Portable chest x-ray Comparison: 12/03/2023 Clinical History: Respiratory failure Findings: Endotracheal tube, NG tube, and bilateral central venous lines are in place. There is mild haziness left lung base. There is probable discoid atelectasis or scarring left upper lobe. Cardiom ediastinal silhouette is stable. Bones and soft tissues are unremarkable. Impression: Support tubes, as above. Probable discoid scarring or atelectasis left upper lobe. Minimal haziness left lung base, nonspecific. Reviewed, dictated and finalized at location M. MILL OPERATOR Impression: Support tubes, as above. Probable discoid scarring or atelectasis left upper lobe. Minimal haziness left lung base, nonspecific.
--- NOTE | ~2023-11-23 | XR_ITS ---
XR chest 1V portable 12/02/2023 06:01 Indication: Mechanical ventilation Procedure: AP portable chest Comparison: Comparison to multiple prior studies sequentially, with oldest reviewed study dated 11/28. Findings: Endotracheal tube tip 3.8 cm above the indra. Left IJ central line tip in the brachiocepha lic vein. Right IJ central line tip in the SVC. Tip of the NG tube not visualized. Cardiomegaly. Mild interstitial edema. No pleural effusion. Impression: 1: Cardiomegaly with mild interstitial edema. Reviewed, dictated and finalized at location A. AL ASSISTANT TEACHER Impression: 1: Cardiomegaly with mild interstitial edema.
--- NOTE | ~2023-11-23 | XR_ITS ---
EXAMINATION: XR chest port-a-cath/central INDICATION: Central line insertion TECHNIQUE: Portable AP chest at 2014 hours COMPARISON: 1816 hours FINDINGS: A left internal jugular central venous catheter has been inserted which ends with its tip i n the brachiocephalic vein. Diffuse interstitial and airspace opacities persist with interval worseni ng. There are moderate-sized right and small left pleural effusions. No pneumothorax is identified. T he cardiomediastinal silhouette is stable. The endotracheal tube ends approximately 3.9 cm above the indra. The nasogastric tube is followed as far as the stomach. Its tip is beyond the inferior margin of the radiograph. IMPRESSION: 1. Left internal jugular central venous catheter insertion ending in the brachiocephalic vein. No pne umothorax. 2. Diffuse lung disease with interval worsening, consistent with atelectasis, pneumonia, and pulmonar y edema. 3. Moderate-sized right and small left pleural effusions. Reviewed, dictated and finalized at location F. NS OR GROUNDS SUPERINTENDENT IMPRESSION: 1. Left internal jugular central venous catheter insertion ending in the brachi ocephalic vein. No pneumothorax. 2. Diffuse lung disease with interval worsening, consistent with atelectasis, p neumonia, and pulmonary edema. 3. Moderate-sized right and small left pleural effusions.
--- NOTE | ~2023-11-23 | XR_ITS ---
XR chest 1V portable DATE: 11/24/2023 08:12 INDICATION: Respiratory failure. TECHNIQUE: Portable AP chest on 11/24/2023 at 0805 hours COMPARISON: 11/23/2023 portable AP chest at 0814 hours FINDINGS: ET tube tip is approximately 4.9 cm above indra. NG tube noted passing into the stomach. Left internal jugular central venous catheter tip overlies the left innominate vein. Cardiomegaly. There is prominence of minor fissure consistent with subpleural edema. Diffuse bilatera l pulmonary infiltrates suggest pulmonary alveolar edema. Pneumonia and ARDS are not excluded. Probable moderate right pleural effusion. Pneumothorax is not evident. IMPRESSION: ET tube 4.9 cm above indra in satisfactory position NG tube passing into stomach Left internal jugular central venous catheter at left innominate vein Pulmonary edema, moderate right pleural effusion, relatively stable since 11/23/2023 considering techn ical differences Reviewed, dictated and finalized at location A. TER DOPER IMPRESSION: ET tube 4.9 cm above indra in satisfactory position NG tube passing into stomach Left internal jugular central venous catheter at left innominate vein Pulmonary edema, moderate right pleural effusion, relatively stable since 2023 considering technical differences
--- NOTE | ~2023-11-23 | US_ITS ---
US renal BI DATE: 11/25/2023 10:20 INDICATION: Acute renal insufficiency TECHNIQUE: Real-time imaging of kidneys and urinary bladder area COMPARISON: 11/23/2023 CTA chest abdomen pelvis FINDINGS: Right kidney measures 10.3 cm length, left kidney 8.5 cm length. There is multifocal left r enal scarring and cortical volume loss .No renal mass lesion or hydronephrosis is detected. The urinary bladder is not visualized, apparently evacuated. IMPRESSION: No evidence of hydronephrosis of either kidney Left renal scarring and volume loss Reviewed, dictated and finalized at Location A. Reviewed, dictated and finalized at location A. DER OPERATOR
--- NOTE | ~2023-11-23 | XR_ITS ---
XR chest ET placement DATE: 11/23/2023 15:36 INDICATION: ET tube placement TECHNIQUE: Portable AP chest on 11/23/2023 at 1526 hours 04/12/2022 portable AP chest COMPARISON: None FINDINGS: The tip of the ET tube is approximately 4 cm above indra in satisfactory position. An NG tube is noted passing into the stomach. Severe diffuse bilateral patchy consolidating infiltrates and prominence of the minor fissure,, sugge sting pulmonary edema. Probable right pleural effusion. Heart size is not optimally evaluated on AP projection because of magnification. IMPRESSION: Severe bilateral pulmonary infiltrates, prominence of minor fissure, right pleural effusi on, most consistent with pulmonary edema ET and NG tubes in expected position Reviewed, dictated and finalized at Location A. Reviewed, dictated and finalized at location B. PLACER IMPRESSION: Severe bilateral pulmonary infiltrates, prominence of minor fissure , right pleural effusion, most consistent with pulmonary edema ET and NG tubes in expected position
--- NOTE | ~2023-11-23 | US_ITS ---
EXAMINATION: US right upper quadrant DATE: 11/26/2023 17:19 INDICATION: Abnormal liver function tests. TECHNIQUE: Multiple grayscale and Doppler ultrasound images of the abdomen were obtained. COMPARISON: CT 11/23/2023 FINDINGS: The visualized portions of the head, body, and tail of the pancreas are normal. There is a 2.9 cm hypoechoic mass in left hepatic lobe. The gallbladder is absent. The common duct is normal and measures 4 mm. There is a right pleural effusion. There is a small volume of perihepatic ascites. IMPRESSION: 1. 2.9 cm liver mass, which may be benign or malignant. Abdomen MRI without and with contrast is ariane mmended. 2. Right pleural effusion. 3. Small volume of ascites. Reviewed, dictated and finalized at location E. NSIGNMENT CLERK IMPRESSION: 1. 2.9 cm liver mass, which may be benign or malignant. Abdomen MRI without and with contrast is recommended. 2. Right pleural effusion. 3. Small volume of ascites.
--- NOTE | ~2023-11-23 | CT_ITS ---
EXAMINATION: CT brain wo con INDICATION: Headache COMPARISON: None TECHNIQUE: Standard unenhanced head CT. The dose-length product (DLP) was 605.33 mGy-cm. The mA was a djusted according to patient size. Iterative reconstruction technique was employed. FINDINGS: Motion artifact limits the examination. No intracranial hemorrhage, acute infarction, or ab normal mass lesion. The ventricles are normal. No abnormal mass effect or midline shift. The echevarria-whi te matter differentiation is normal. The basal cisterns are patent. The orbits are normal. The parana leatha sinuses, mastoids and calvarium are normal. IMPRESSION: 1. No acute intracranial abnormality, sensitivity slightly limited by motion artifact. Reviewed, dictated and finalized at location F. BEVERAGE SERVER IMPRESSION: 1. No acute intracranial abnormality, sensitivity slightly limited by motion ar tifact.
--- NOTE | ~2023-11-23 | XR_ITS ---
Portable chest x-ray Comparison: 12/13/2023 Clinical History: Respiratory failure Findings: Tracheostomy cannula and right IJ line are unchanged. There is mild central and bibasilar pulmonary airspace disease. Cardiomediastinal silhouette is stable. Bones and soft tissues are unrem arkable. Impression: Stable mild perihilar and bibasilar airspace disease, most confluent at the left lung base. Correlate for pulmonary edema/atelectasis versus pneumonia. Stable support tubes. Reviewed, dictated and finalized at location . LE ROOM HELPER Impression: Stable mild perihilar and bibasilar airspace disease, most confluent at the lef t lung base. Correlate for pulmonary edema/atelectasis versus pneumonia. Stable support tubes.
--- NOTE | ~2023-11-23 | CT_ITS ---
EXAMINATION: CTA chest PE abdomen pel DATE: 11/23/2023 17:53 INDICATION: Cardiac arrest, sepsis TECHNIQUE: Computed tomography angiography (CTA) of the chest was performed with 100 mL Omnipaque-350 intravenous contrast timed to evaluate the pulmonary arteries. Subsequent postcontrast images of the abdomen and pelvis are obtained. Coronal maximum intensity projection 3D-reconstructions were create d by the technologist. The dose-length product (DLP) was 2366.75 mGy-cm. Automated exposure control a nd iterative reconstruction technique were employed. COMPARISON: None. FINDINGS: CTA CHEST: The pulmonary arteries are well-opacified. Respiratory motion artifact limits the examinat ion. No central pulmonary embolism is identified. There are moderate size right and small left pleura l effusions. There are patchy airspace opacities throughout the lungs with near complete opacificatio n of the right lower lobe. Areas of dense consolidation are also noted in the lung apices and in the dependent aspect of the left lower lobe. There is no pneumothorax. There are nondisplaced acute bilat eral rib fractures, likely related to CPR. No pathologically enlarged thoracic lymph nodes are identi fied. The heart size is normal. The endotracheal tube ends approximately 3.8 cm above the indra. ABDOMEN/PELVIS CT: There is diffuse anasarca. There is a 2.3 cm enhancing mass of liver segment III. There is heterogeneous enhancement of the liver. Changes of cholecystectomy are noted. The spleen, pa ncreas, and adrenal glands are normal. There is a nasogastric tube in the stomach. The right kidney i s unremarkable. There are areas of scarring in the left kidney. No pathologically enlarged abdominal or pelvic lymph nodes are identified. There is small volume of ascites. No free intraperitoneal gas o r evidence of bowel obstruction. The bladder is decompressed by Mijares catheter. An IUD is noted in th e uterus. There is a small umbilical hernia containing fat. Diffuse anasarca is noted. IMPRESSION: 1. No central pulmonary embolus identified, sensitivity limited by respiratory motion artifact. 2. Patchy airspace opacities throughout the lungs with areas of more dense consolidation in the lung apices, the left lower lobe, and nearly completely involving the right lower lobe. Findings likely re flect pneumonia, atelectasis, and pulmonary edema. 3. Moderate-sized right and small left pleural effusions. 4. Nondisplaced bilateral rib fractures, likely related to CPR. 5. Small volume of ascites. 6. 2.3 cm enhancing mass of the left hepatic lobe, likely benign in the absence of known malignancy. Follow-up with nonemergent MRI without and with contrast is recommended. 7. Heterogeneous appearance to the liver which could reflect congestive changes related to heart fail ure. Reviewed, dictated and finalized at location F. OR APPLICATION PROGRAMMER IMPRESSION: 1. No central pulmonary embolus identified, sensitivity limited by respiratory motion artifact. 2. Patchy airspace opacities throughout the lungs with areas of more dense cons olidation in the lung apices, the left lower lobe, and nearly completely involv ing the right lower lobe. Findings likely reflect pneumonia, atelectasis, and p ulmonary edema. 3. Moderate-sized right and small left pleural effusions. 4. Nondisplaced bilateral rib fractures, likely related to CPR. 5. Small volume of ascites. 6. 2.3 cm enhancing mass of the left hepatic lobe, likely benign in the absence of known malignancy. Follow-up with nonemergent MRI without and with contrast is recommended. 7. Heterogeneous appearance to the liver which could reflect congestive changes related to heart failure.
--- NOTE | ~2023-11-23 | US_ITS ---
EXAMINATION: US venous doppler UE DATE: 12/01/2023 12:33 INDICATION: Fever. TECHNIQUE: Browne scale images with and without compression and Doppler images of the right and left up per extremity veins were obtained. COMPARISON: None. FINDINGS: The right internal jugular vein, subclavian vein, axillary vein, brachial veins, basilic vein, cephal ic vein, radial vein, and ulnar vein are patent. There is superficial venous thrombosis of the left cephalic vein. The remainder of the left upper ext remity veins are patent with normal flow and compressibility. IMPRESSION: 1. Patent right upper extremity veins. No evidence of deep venous thrombosis. 2: Superficial venous thrombosis left cephalic vein. Reviewed, dictated and finalized at location B. MATIC BOW MAKER MACHINE TENDER
--- NOTE | ~2023-11-23 | XR_ITS ---
Portable chest x-ray Comparison: 12/05/2023 Clinical History: Respiratory failure Findings: Endotracheal tube, NG tube, and bilateral central venous lines are in place. There is prob able discoid scarring or atelectasis left upper lobe. Right lung clear. Cardiomediastinal silhouette is stable. Bones and soft tissues are unremarkable. Impression: Discoid atelectasis left upper lobe. Otherwise clear lungs. Support tubes, as above. Reviewed, dictated and finalized at location M. OR PROJECT CONTROLS SPECIALIST Impression: Discoid atelectasis left upper lobe. Otherwise clear lungs. Support tubes, as above.
--- NOTE | ~2023-11-23 | XR_ITS ---
EXAMINATION: XR chest 1V portable DATE: 12/07/2023 14:33 INDICATION: Shortness of breath. TECHNIQUE: A single frontal view of the chest was obtained. COMPARISON: Chest single view 12/07/2023 at 5:22 AM FINDINGS: There is mild atelectasis in left lower lung zone. No pleural effusion or pneumothorax. The heart size is normal. There is a tracheostomy tube in expected position. A left internal jugular marilee tral venous catheter is seen with tip in the left brachiocephalic vein. A right internal jugular cent ral venous catheter is seen with tip at the superior cavoatrial junction. IMPRESSION: 1. Mild atelectasis in left lower lung zone. Reviewed, dictated and finalized at location A. ESS ARCHITECT
--- NOTE | ~2023-11-23 | XR_ITS ---
XR chest port-a-cath/central 11/26/2023 10:02 Indication: Right IJ dialysis catheter Procedure: AP portable chest Comparison: Comparison to multiple prior studies sequentially, with oldest reviewed study dated 11/23. Findings: There is an endotracheal tube tip 5.4 cm above the indra. Right IJ central line tip in the SVC. Cardiomegaly. There is pulmonary edema. Small right pleural effusion. Left IJ central line tip in the brachiocephalic vein. No pneumothorax. Impression: 1: Cardiomegaly with pulmonary edema. 2: Right pleural effusion. Reviewed, dictated and finalized at location B. R RECLAMATION SYSTEMS OPERATOR Impression: 1: Cardiomegaly with pulmonary edema. 2: Right pleural effusion.
--- NOTE | ~2023-11-23 | CT_ITS ---
EXAMINATION: CTA chest PE protocol DATE: 12/04/2023 17:49 INDICATION: Hypoxia TECHNIQUE: Computed tomography angiography (CTA) of the chest was performed with intravenous contrast timed to evaluate the pulmonary arteries. Coronal maximum intensity projection 3D-reconstructions we re created by the technologist. The dose-length product (DLP) was 791.46 mGy-cm. Automated exposure c ontrol and iterative reconstruction technique were employed. COMPARISON: None. FINDINGS: Lung parenchyma and airways: Diffuse mild septal thickening and groundglass opacities. Somewhat linea r bilateral dependent upper lobe consolidation. Bilateral medial segmental lower lobe. Consolidation and centrilobular and tree-in-bud opacities in the right upper lung. Secretions in the lower trachea. Pleura: Unremarkable. Thoracic inlet, axillae and chest wall: NG tube terminating in the midthoracic trachea. Subdiaphragma tic NG tube. Right IJ dialysis catheter terminating in the proximal right atrium. Thoracic aorta: Normal. Mediastinum: Enlarged bilateral hilar and mediastinal lymph nodes. Heart and pericardium: Mild cardiomegaly. Coronary artery calcifications: Mild. Upper abdomen: No significant finding. Bones: No acute osseous finding. Pulmonary arteries: Study quality: Limited evaluation of subsegmental arteries. No central or segment al pulmonary emboli detected. IMPRESSION: Limited evaluation of subsegmental arteries. No CT evidence of acute central or segmental pulmonary e mbolus. Unchanged findings consistent with multifocal pneumonia. Minimal lower tracheal secretions. Mediastinal and bilateral hilar lymphadenopathy. Reviewed, dictated and finalized at location K. HOUSE DRIVER IMPRESSION: Limited evaluation of subsegmental arteries. No CT evidence of acute central or segmental pulmonary embolus. Unchanged findings consistent with multifocal pneumonia. Minimal lower tracheal secretions. Mediastinal and bilateral hilar lymphadenopathy.
--- NOTE | ~2023-11-23 | CT_ITS ---
EXAMINATION: CT chest abdomen pelvis wo con DATE: 12/02/2023 08:22 RESEARCH RN SPEC INDICATION: Fevers. TECHNIQUE: Computed tomography (CT) of the chest, abdomen, and pelvis was performed without intraveno us contrast. The dose-length product was 1862.88 mGy-cm. Automated exposure control and iterative rec onstruction technique were employed. COMPARISON: Chest x-ray dated 12/02/2023 FINDINGS: CHEST CT: There is multifocal consolidation with groundglass and reticulonodular densities of the upper lobes, consistent with pneumonia. Consolidation more localized in the lower lobes. Endotracheal tube present . NG tube in the stomach. There are cholecystectomy clips. No significant pleural or pericardial effu sudarshan. There is mediastinal lymphadenopathy, likely reactive. ABDOMEN/PELVIS CT: There is a Mijares catheter in the bladder. Status post cholecystectomy. The liver, spleen, pancreas, a drenal glands and kidneys are unremarkable. Nonobstructive bowel pattern. Moderate retained fecal mat erial in the colon. No obstruction. No free air or free fluid. No significant vascular abnormality. N o lymphadenopathy. No acute osseous abnormality. IMPRESSION: 1. Multifocal consolidation in the lungs, consistent with pneumonia. 2: Mediastinal lymphadenopathy, likely reactive. Reviewed, dictated and finalized at location A. ARCH RN SPEC
--- NOTE | ~2023-11-23 | XR_ITS ---
EXAMINATION: XR chest 1V portable INDICATION: Desaturations TECHNIQUE: Portable AP chest at 1816 hours COMPARISON: [address] FINDINGS: The endotracheal tube ends approximately 3.9 cm above the indra. The nasogastric tube is f ollowed as far as the stomach. Its tip is beyond the inferior margin of the radiograph. There are pat catarino airspace opacities throughout all lung zones without significant change. The heart size is normal . There are moderate-sized right and small left pleural effusions. There is no pneumothorax. IMPRESSION: 1. Overall no significant change with areas of atelectasis, pneumonia, and pulmonary edema better del ineated on the interval comparison CT. 2. Moderate-sized right and small left pleural effusions. Reviewed, dictated and finalized at location F. STRAIGHTENER IMPRESSION: 1. Overall no significant change with areas of atelectasis, pneumonia, and pulm onary edema better delineated on the interval comparison CT. 2. Moderate-sized right and small left pleural effusions.
--- NOTE | ~2023-11-23 | XR_ITS ---
Portable chest x-ray Comparison: 12/12/2023 Clinical History: Respiratory failure Findings: Tracheostomy cannula and right IJ line are in place. There is hazy bilateral pulmonary dis ease, with central distribution. Cardiomediastinal silhouette is stable. Bones and soft tissues are unremarkable. Impression: Mild central pulmonary edema pattern. Correlate clinically for infection. Stable support tubes. Reviewed, dictated and finalized at [facility]. TY PROBATION OFFICER Impression: Mild central pulmonary edema pattern. Correlate clinically for infection. Stable support tubes.
--- NOTE | ~2023-11-23 | XR_ITS ---
Portable chest x-ray Comparison: 11/28/2023 Clinical History: Respiratory failure Findings: Endotracheal tube, NG tube, and bilateral central venous lines are in place. There is mode rate pulmonary edema pattern with small right pleural effusion. Cardiomediastinal silhouette is stab le. Bones and soft tissues are unremarkable. Impression: Moderate pulmonary edema pattern with small right pleural effusion. Support tubes, as above. Reviewed, dictated and finalized at location . N RELATIONS PROFESSOR Impression: Moderate pulmonary edema pattern with small right pleural effusion. Support tubes, as above.
--- NOTE | ~2023-11-23 | XR_ITS ---
Portable chest x-ray Comparison: 11/27/2023 Clinical History: Respiratory failure Findings: NG tube, endotracheal tube, and bilateral central venous lines are in place. Small right p leural effusion is present. There is moderate probable pulmonary edema pattern, right worse than left . Cardiomediastinal silhouette is stable. Bones and soft tissues are unremarkable. Impression: Small right pleural effusion with moderate pulmonary edema pattern, right worse than left. Correlate clinically for pneumonia. Support tubes, as above. Reviewed, dictated and finalized at location . GED CARE PROVIDER Impression: Small right pleural effusion with moderate pulmonary edema pattern, right worse than left. Correlate clinically for pneumonia. Support tubes, as above.
--- NOTE | ~2023-11-23 | XR_ITS ---
EXAMINATION: XR chest 1V portable DATE: 12/11/2023 05:24 INDICATION: Respiratory failure. TECHNIQUE: A single frontal view of the chest was obtained. COMPARISON: Chest single view 12/10/2023, chest CT 12/09/2023 FINDINGS: There are airspace opacities in the perihilar regions and at left lung base. No pleural eff usion or pneumothorax. The heart size is normal. There is a tracheostomy tube in expected position. A right internal jugular central venous catheter is seen with tip at the superior cavoatrial junction. IMPRESSION: 1. Worsened airspace opacities in the perihilar regions and at left lung base, consistent with atelec tasis versus pneumonia versus mild pulmonary edema. Reviewed, dictated and finalized at location A. TROPHYSIOLOGY TECHNICIAN IMPRESSION: 1. Worsened airspace opacities in the perihilar regions and at left lung base, consistent with atelectasis versus pneumonia versus mild pulmonary edema.
--- NOTE | ~2023-11-23 | XR_ITS ---
XR chest 1V portable 12/01/2023 05:59 Indication: Mechanical ventilation Procedure: AP portable chest Comparison: Comparison to multiple prior studies sequentially, with oldest reviewed study dated 11/28. Findings: Left IJ central line tip in the brachiocephalic vein. Right IJ central line tip near the ca voatrial junction. NG tube in the stomach. Heart size normal. Mild interstitial edema. No pleural eff usion. No pneumothorax. No acute osseous abnormality. Endotracheal tube tip 6 cm above the indra. Impression: 1: Improving mild interstitial edema. Reviewed, dictated and finalized at location A. IRATORY THERAPY DIRECTOR Impression: 1: Improving mild interstitial edema.
--- NOTE | ~2023-11-23 | XR_ITS ---
Portable chest x-ray Comparison: 12/16/2023 Clinical History: Pulmonary edema Findings: Tracheostomy cannula place. Possible minimal bibasilar pulmonary edema. Cardiomediastinal silhouette is stable. Bones and soft tissues are unremarkable. Impression: Possible minimal bibasilar pulmonary edema. Tracheostomy cannula. Reviewed, dictated and finalized at [facility]. THCARE RECEPTIONIST Impression: Possible minimal bibasilar pulmonary edema. Tracheostomy cannula.
--- NOTE | ~2023-11-23 | XR_ITS ---
EXAMINATION: XR chest 1V portable DATE: 12/10/2023 06:09 INDICATION: Respiratory failure. TECHNIQUE: A single frontal view of the chest was obtained. COMPARISON: Chest single view 12/09/2023, chest CT 12/09/2023 FINDINGS: There are airspace opacities in the lower lobes and left upper lobe. No pleural effusion or pneumothorax. The heart size is normal. There is a tracheostomy tube in expected position. A right i nternal jugular central venous catheter is seen with tip at the superior cavoatrial junction. A gastr ostomy tube is noted. IMPRESSION: 1. Diffuse opacities in the lower lobes and left upper lobe with worsening in left lower lobe, consis tent with atelectasis versus pneumonia. Reviewed, dictated and finalized at location E. AS CUTTER IMPRESSION: 1. Diffuse opacities in the lower lobes and left upper lobe with worsening in l eft lower lobe, consistent with atelectasis versus pneumonia.
--- NOTE | ~2023-11-23 | XR_ITS ---
EXAMINATION: XR chest 1V portable DATE: 11/28/2023 09:24 INDICATION: Endotracheal tube advancement TECHNIQUE: frontal view of the chest was obtained. COMPARISON: Chest radiograph dated 11/28/2023 at 5:21 AM FINDINGS: Endotracheal tube tip 2.3 cm above the indra. Large-bore right internal jugular central venous bobo ter with distal tip at the superior cavoatrial junction. Nasogastric tube extends below the left hem idiaphragm with distal tip collimated off the study. Gradient of basilar predominant hazy opacities throughout the bilateral mid and lower lung zones with dense opacities at the bilateral lung bases consistent with small left and [id number] right p osterior layering pleural effusions with associated bibasilar atelectasis and/or pneumonia. Heart siz e is normal. IMPRESSION: 1. Lines and tubes in expected position. 2. Small left and eqnrx-gb-grpmrboy right pleural effusions with associated bibasilar atelectasis and /or pneumonia. Reviewed, dictated and finalized at location A. D LIABILITY GENERALIST IMPRESSION: 1. Lines and tubes in expected position. 2. Small left and [id number] right pleural effusions with associated bib asilar atelectasis and/or pneumonia.
--- NOTE | ~2023-11-23 | XR_ITS ---
Portable chest x-ray Comparison: 12/02/2023 Clinical History: Respiratory failure Findings: Endotracheal tube, NG tube, and bilateral central venous lines are in place. There is disc oid left upper lobe atelectasis or scarring. Right lung essentially clear. Cardiomediastinal silhoue tte is stable. Bones and soft tissues are unremarkable. Impression: Discoid left upper lobe atelectasis or scarring. Support tubes, as above. Reviewed, dictated and finalized at location . UIT INSTALLER Impression: Discoid left upper lobe atelectasis or scarring. Support tubes, as above.
--- NOTE | ~2023-11-23 | XR_ITS ---
Portable chest x-ray Comparison: 11/26/2023 Clinical History: Respiratory failure Findings: Endotracheal tube, NG tube, and bilateral central venous lines are in place. Small right p leural effusion present. There is extensive hazy pulmonary disease, right worse than left. Cardiomed iastinal silhouette is stable. Bones and soft tissues are unremarkable. Impression: Small right pleural effusion with hazy bilateral pulmonary disease. Correlate for pulmonary edema carmella monalisa infection. Support tubes, as above. Reviewed, dictated and finalized at location . SPOOLER Impression: Small right pleural effusion with hazy bilateral pulmonary disease. Correlate f or pulmonary edema versus infection. Support tubes, as above.
--- NOTE | ~2023-11-23 | XR_ITS ---
Portable chest x-ray Comparison: 12/11/2023 Clinical History: Respiratory failure Findings: Tracheostomy cannula and right-sided central venous line are unchanged. There is hazy biba silar and perihilar airspace consolidation, worst at the left lung base. Cardiomediastinal silhouett e is stable. Bones and soft tissues are unremarkable. Impression: Bibasilar and perihilar airspace disease. Correlate for mild to moderate pulmonary edema versus infec tion. Support tubes, as above. Reviewed, dictated and finalized at location . RTISER Impression: Bibasilar and perihilar airspace disease. Correlate for mild to moderate pulmon connor edema versus infection. Support tubes, as above.
--- NOTE | ~2023-11-23 | XR_ITS ---
Portable chest x-ray Comparison: 12/04/2023 Clinical History: Respiratory failure Findings: Endotracheal tube, NG tube, and bilateral central venous lines are in satisfactory positio ns. Lungs are essentially clear. Cardiomediastinal silhouette is stable. Bones and soft tissues are unremarkable. Impression: Support tubes, as above. Clear lungs. Reviewed, dictated and finalized at location . Impression: Support tubes, as above. Clear lungs.
--- NOTE | ~2023-11-23 | XR_ITS ---
Portable chest x-ray Comparison: 12/06/2023 Clinical History: Respiratory failure Findings: Endotracheal tube, NG tube, and bilateral central venous lines are in satisfactory positio ns. There are probable mild central congestive changes. There is linear left basilar atelectasis or s carring. Cardiomediastinal silhouette is stable. Bones and soft tissues are unremarkable. Impression: Probable minimal central congestive changes with linear left basilar scarring or atelectasis. Support tubes, as above. Reviewed, dictated and finalized at location M. ORMASTER Impression: Probable minimal central congestive changes with linear left basilar scarring o r atelectasis. Support tubes, as above.
--- NOTE | ~2023-11-23 | XR_ITS ---
EXAMINATION: XR chest 1V portable DATE: 12/04/2023 14:40 INDICATION: Oxygen desaturation. TECHNIQUE: A single frontal view of the chest was obtained. COMPARISON: Chest single view 12/04/2023 at 5:20 AM, chest CT 12/02/2023 FINDINGS: There are mild airspace opacities in right upper lung zone. There are airspace opacities in all left lung zones. No pleural effusion or pneumothorax. The heart size is normal. The endotracheal tube tip is 3.6 cm above the indra. A left internal jugular central venous catheter is seen with ti p in the left brachiocephalic vein. A right internal jugular central venous catheter is seen with tip at the superior cavoatrial junction. The nasogastric tube tip is beyond the inferior margin of the r adiograph, but at least to the stomach. IMPRESSION: 1. Mildly worsened airspace opacities in left lung and right upper lung zone, likely a combination of pneumonia and atelectasis. Reviewed, dictated and finalized at location A. E SYRUP MAKER IMPRESSION: 1. Mildly worsened airspace opacities in left lung and right upper lung zone, l ikely a combination of pneumonia and atelectasis.
--- NOTE | ~2023-11-23 | US_ITS ---
EXAMINATION:US venous doppler LE BI INDICATION:Fevers. TECHNIQUE: Multiple grayscale, color flow and Doppler images of the right and left lower extremity de ep venous systems were obtained and reviewed. COMPARISON:No prior studies for comparison. FINDINGS: The common femoral, superficial femoral and popliteal veins demonstrate normal respiratory variation, augmentation and compressibility. Color flow is also seen within the posterior tibial, pe roneal, greater saphenous and profunda veins. IMPRESSION: 1: No lower extremity deep venous thrombosis. Reviewed, dictated and finalized at location B. TS MEDICINE COORDINATOR
--- NOTE | ~2023-11-23 | CT_ITS ---
EXAMINATION: CT brain wo con DATE: 11/27/2023 20:56 INDICATION: Anisocoria. TECHNIQUE: Computed tomography (CT) of the head was performed without intravenous contrast. The mA wa s adjusted according to patient size. Iterative reconstruction technique was employed. The dose-lengt h product was 681.00 mGy-cm. COMPARISON: Head CT 11/23/2023 FINDINGS: There is no intracranial hemorrhage, acute infarction, or abnormal intracranial mass lesion . The ventricles are normal in size. There are likely changes of ocular lens replacement surgeries. T he paranasal sinuses are clear. The mastoid air cells are normal. IMPRESSION: 1. Normal brain. Reviewed, dictated and finalized at location E. ING AND FISHING GUIDE IMPRESSION: 1. Normal brain.
--- NOTE | ~2023-11-23 | XR_ITS ---
EXAMINATION: XR chest 1V portable INDICATION: Respiratory failure TECHNIQUE: Portable AP chest at 0548 hours COMPARISON: 12/07/2023 FINDINGS: A tracheostomy is in expected position. A left internal jugular central venous catheter end s with its tip in the left brachiocephalic vein. A right internal jugular central venous catheter end s with its tip at the superior cavoatrial junction. No pleural effusion or pneumothorax. The heart si ze is normal. There are retrocardiac and left basilar airspace opacities. IMPRESSION: 1. Atelectasis versus pneumonia. Reviewed, dictated and finalized at location F. ADJUSTER
--- NOTE | 2023-11-23 14:59 | ECG_ITS ---
Measurements Intervals [place] Rate: 61 P: RI: 0 QRS: 68 QRSD: 86 T: 122 QT: 418 QTc: 424 Interpretive Statements SINUS RHYTHM LOW QRS VOLTAGE- DIFFUSE LEADS ANTERIOR INFARCT, AGE INDETERMINATE BORDERLINE ST-T WAVE ABNORMALITY- INF/HIGH LAT LEADS BASELINE ARTIFACT- II, III, AVR, AVL, AVF, V1, V4-V6 ABNORMAL ECG COMPARED TO ECG 04/12/2022 12:13:02 ANTERIOR INFARCT, AGE INDETERMINATE NOW PRESENT ST-T WAVE ABNORMALITY NOW PRESENT Electronically Signed On 11-24-2023 8:04:11 LEGAL COORDINATOR by Quinten Keller D.O.
[2023-11-23] MEDS: FENTANYL 2,500MCG/NS250ML(*CRX 2,500 MCG/250 ML BAG IV CONT (15:12)
[2023-11-23 15:15] LABS: Magnesium 2.2 mg/dL (1.6-2.3)
[2023-11-23] MEDS: NOREPINEPHRINE 8 MG/D5W 250 ML 8 MG/250 ML BAG 15 MG IV CONT (15:15)
[2023-11-23 15:16] LABS: Alanine Aminotransferase 243 U/L (6-35); Albumin Level 3.5 g/dL (3.5-5.1); Alkaline Phosphatase 188 U/L (38-126); Anion Gap 22 mmol/L (8-16); Aspartate Amino Transferase 334 U/L (14-36); Bilirubin,Total 1.4 mg/dL (0.2-1.3); Blood Urea Nitrogen 82 mg/dL (7-17); Calcium 7.9 mg/dL (8.4-10.2); Carbon Dioxide 18 mmol/L (22-30); Chloride 92 mmol/L (98-107); Estimated Glomerular Filt Rate 18; Glucose 359 mg/dL (65-110); Potassium 5.7 mmol/L (3.4-5.0); Sodium 132 mmol/L (137-145)
[2023-11-23 15:16] LABS: Lactic Acid Reflex 6.6 mmol/L (0.7-2.0)
[2023-11-23 15:17] LABS: Basophils Absolute Auto 0.2 K/mm3 (0.0-0.1); Basophils Percent Auto 0.6 % (0.2-1.2); Eosinophils Percent Auto 0.2 % (0-4.4); Hematocrit 37.7 % (37.0-47.0); Hemoglobin 11.6 g/dL (12.0-15.0); Immature Granulocyte Absolute 1.73 K/mm3 (0.00-0.031); Immature Granulocyte Percent A 6.7 % (0-0.5); Lymphocytes Absolute Auto 1.66 K/mm3 (0.9-3.2); Lymphocytes Percent Auto 6.4 % (18.3-44.2); Mean Corpuscular HGB Conc 30.8 g/dl (32-36); Mean Corpuscular Hemoglobin 28.4 pg (26-34); Mean Corpuscular Volume 92.2 fl (80-100); Mean Platelet Volume 10.6 fl (7.4-10.4); Monocytes Absolute Auto 1.1 K/mm3 (0.1-0.6); Monocytes Percent Auto 4.2 % (2.6-8.5); Neutrophils Absolute Auto 21.4 K/mm3 (1.3-6.7); Neutrophils Percent Auto 81.9 % (45.5-73.1); Nucleated Red Blood Cells Absolute Auto 0.3 K/mm3 (0.0-0.012); Platelet Count Result 449 k/mm3 (150-375); Red Blood Count 4.09 M/mm3 (4.2-5.4); Red Cell Distribution Width 14.1 % (11.5-14.5)
--- NOTE | 2023-11-23 15:19 | ED.CPR ---
HPI - CPR General Chief Complaint: Cardiac Arrest/CPR Stated Complaint: CARDIAC ARREST History of Present Illness HPI narrative: Patient is a 43-year-old female history of diabetes and asthma presented to the ED today in a cardiac arrest. EMS and family provide history. Patient has been feeling flu-like symptoms over the last week. They have been managing it with over the counter treatments. Today she felt worse, told family she did not feel right and told him to call an ambulance. On EMS arrival she was awake, oriented and speaking without difficulty. When they went to stand her up to get on the stretcher to come into the ER she went unresponsive. She did not fall to the ground. She was found to be pulseless, in PEA arrest. 3 rounds of Epi given as well as 1 dose of narcan and 10 mg of decadron. Patient was intubated in the field. BG for EMS was in the 400's. Related Data Home Medications Medication Instructions Recorded Confirmed atorvastatin 20 mg tablet 20 tablet PO DAILY 04/12/22 10/26/23 bupropion HCl (smoking deter) 150 150 mg PO DAILY 04/12/22 10/26/23 mg tablet,12 hr sustained-release(smoking deterrent) carvedilol 6.25 mg tablet 6.25 tablet PO DAILY 04/12/22 10/26/23 clonazepam 0.5 mg tablet 0.5 tablet PO BID 04/12/22 10/26/23 isosorbide mononitrate 30 mg 30 mg PO DAILY 04/12/22 10/26/23 tablet,extended release 24 hr venlafaxine 150 mg 150 mg PO DAILY 04/12/22 10/26/23 capsule,extended release 24 hr amlodipine 10 mg tablet 10 mg PO DAILY 11/20/22 10/26/23 insulin lispro 100 unit/mL See Rx Instructions .Route .COMPLEX 06/02/23 10/26/23 subcutaneous solution (Humalog U-100 Insulin) insulin pump cart,automated,BT 06/02/23 10/26/23 (Omnipod 5 G6 Pods (Gen 5) subcutaneous cartridge) insulin pump cartridge,automated 06/02/23 10/26/23 dose,BT with controller subcutaneous (Omnipod 5 G6 Intro Kit (Gen 5) subcutaneous cartridge with controller) levonorgestrel 17.5 mcg/24 hrs See Rx Instructions .Route .COMPLEX 06/02/23 10/26/23 (5yrs) 19.5mg intrauterine device (Kyleena) montelukast 5 mg chewable tablet 5 mg PO HS 06/02/23 10/26/23 trazodone 100 mg tablet 100 mg PO HS 06/02/23 10/26/23 chlorthalidone 25 mg tablet 25 mg PO DAILY 10/26/23 10/26/23 Allergies Allergy/AdvReac Type Severity Reaction Status Date / Time doxycycline Allergy Other Verified 10/26/23 11:58 propoxyphene AdvReac Mild Itching Verified 06/02/23 15:32 [From Darvocet-N 100] Review of Systems Review of Systems: ROS unobtainable: Yes unobtainable due to endotracheal tube Exam Narrative: GENERAL: unresponsive HEAD: Normocephalic, atraumatic. EYES: Pupils 4mm, minimally reactive. ENT: Nares clear. Mucous membranes moist. ETT in place. NECK: Supple. CHEST: Clear BL bagged respirations, no spontaneous respirations. HEART: Pulseless. ABDOMEN: Distended EXTREMITIES: No spontaneous movements. SKIN: Cool, pale Course Course Emergency Course: Patient seen and evaluated on arrival by EMS. Active CPR in process Ramiro device. CPR continued. ACLS protocol followed. Blood glucose in the 300s. Given patient's age and complaint initially of shortness of breath and has been feeling unwell over the last few days, concern for possible PE. In addition to epinephrine, bicarb, calcium 50 mg of tPA administered. ROSC obtained initially, then lost again. Family brought to bedside. PEA arrest continued with ACLS protocol followed, additional epinephrine provided. ROSC obtained a second time. Norepinephrine initiated. CT brain, CTA PE study ordered. Lab work reviewed. Potassium of 5.7, BUN and creatinine elevated. Appears to be in acute on chronic renal failure. WBC of 26, broad spectrum antibiotics have been ordered. Patient does have pulmonary edema on her CXR, will do gentle hydration instead of 30 cc/kg IVF bolus. negative. COVID/influenza/RSV negative. CT negative for PE, concerning for multif
[2023-11-23 15:24] LABS: INR 1.9
[2023-11-23 15:25] LABS: Partial Thromboplastin Time 33.6 SECONDS (22.3-36.8)
[2023-11-23 15:27] LABS: Appearance Urine Clear (Clear); Bacteria Urine 4+ /hpf; Bilirubin Urine Negative (Negative); Blood Urine Negative (Negative); Color Urine Yellow (Yellow); Glucose Urine UA Negative (Negative); Ketones Urine Negative (Negative); Leukocyte Esterase Ur Trace LEU/UL (Negative); Nitrate Urine Negative (Negative); Protein Urine Negative (Negative); RBC Urine 0-2 /hpf (0-2); Specific Grav Ur 1.018 (1.001-1.035); Squamous Epithelial Cell Urine None seen /hpf (Few); WBC Urine 0-5 /hpf
[2023-11-23 15:28] LABS: Add Urine Microscopic? YES
[2023-11-23 15:30] LABS: SPREG INTERNAL CONTROL Positive; Serum Qual hCG Negative
[2023-11-23 15:33] LABS: CRP 6.6 mg/dL (<1.0); NT Pro B Type Natriuretic Pept 6130 pg/mL (19.9-100); Troponin I 0.146 ng/mL (0.000-0.034)
[2023-11-23 15:41] LABS: Anisocytosis 1+ (NORMAL); Platelet Estimate Adequate (Adequate); Poikilocytosis 1+ (NORMAL); Polychromasia 2+ (NORMAL)
[2023-11-23 15:42] LABS: Schistocytes None Seen (NORMAL)
[2023-11-23 15:48] LABS: Alveolar/Arterial O2 Gradient 616.9 mmHg; Base Excess ABG -4.3 mEq/l (+/-2.0); Fractional Inspired Oxygen 100 %; HCO3 ABG 21.6 mEq/l (22.0-26.0); PCO2 ABG 43.1 mmHg (35.0-45.0); PO2 FiO2 Ratio Arterial Blood 0.53 %; Total Hemoglobin 11.7 g/dL (12.0-18.0); pH ABG 7.318 (7.350-7.450)
[2023-11-23 15:51] LABS: Device VENTILATOR; Oxygen Saturation ABG 84.7 % (95.0-100.0); Oxyhemoglobin 79.1 % THb (90.0-100.0); Site Drawn RIGHT BRACHIAL
[2023-11-23 15:52] LABS: Arterial Blood Gas PEEP 8 cmH2O; Arterial Blood Gas Tidal Volume 400 ml; Arterial Blood Gas Vent Mode CMV; Arterial Blood Gas Ventilator rate 16 /MIN
[2023-11-23] MEDS: CEFEPIME 2 GM/NS 50 ML 2 GM/50 ML BAG IVPB (16:05)
[2023-11-23 16:21] LABS: Influenza A QL RT-PCR Negative (Negative); Influenza B QL RT-PCR Negative (Negative); RSV RNA, RT-PCR Negative (Negative); SARS-CoV-2 RNA PCR Negative (Negative)
[2023-11-23 18:11] LABS: Reflex Lactic Acid Yes or No Add Lactic
[2023-11-23] MEDS: IPRATROPIUM BR 0.02% INH SOLN 0.5 MG/2.5 ML VIAL 1.5 MG INHALATION ×2 (18:18→22:56)
[2023-11-23] MEDS: LEVALBUTEROL NEB 1.25 MG/3 ML 10 MG INHALATION (18:18)
[2023-11-23 18:56] LABS: Lactic Acid 6.8 mmol/L (0.7-2.0)
--- NOTE | 2023-11-23 19:31 | PC.NURSE ---
Report received from LACEY Skinner. Assumed care of patient at this time.
--- NOTE | 2023-11-23 20:32 | PC.NURSE ---
VORB by DR.Berens corcoran to use central line.
[2023-11-23] MEDS: VANCOMYCIN 1,750 MG/NS 500 ML 1,750 MG/500 ML BAG 250 MG IVPB (20:34)
[2023-11-23] MEDS: LACTATED RINGERS 1,000 ML 999 ML IV CONT ×2 (20:41)
[2023-11-23] MEDS: INSULIN HUMAN REGULAR (*BKC) 100 UNITS/ML 10 UNITS IV PUSH (20:43)
[2023-11-23] MEDS: DEXTROSE 50% 25 GM/50 ML SYRINGE IV PUSH (20:44)
[2023-11-23] MEDS: AZITHROMYCIN 500 MG/NS 250 ML 500 MG/250 ML BAG 250 MG IVPB (20:51)
[2023-11-23 20:55] LABS: Anion Gap 20 mmol/L (8-16); Blood Urea Nitrogen 86 mg/dL (7-17); Calcium 8.6 mg/dL (8.4-10.2); Carbon Dioxide 18 mmol/L (22-30); Chloride 92 mmol/L (98-107); Estimated CRCL calculation 26 ml/min; Estimated Glomerular Filt Rate 16; Glucose 383 mg/dL (65-110); Potassium 6.7 mmol/L (3.4-5.0); Sodium 130 mmol/L (137-145); Troponin I 0.208 ng/mL (0.000-0.034)
[2023-11-23 21:01] LABS: Glucose Point of Care 396 mg/dl (65-105)
--- NOTE | 2023-11-23 21:05 | ECG_ITS ---
Measurements Intervals [place] Rate: 45 P: 39 [place]: 155 QRS: 94 QRSD: 111 T: 90 QT: 487 QTc: 423 Interpretive Statements SINUS BRADYCARDIA RIGHT AXIS DEVIATION LOW QRS VOLTAGE IN DIFFUSE LEADS CONSIDER ANTERIOR INFARCT, AGE INDETERMINATE BORDERLINE ST-T WAVE ABNORMALITY- ANTEROLAT/HIGH LAT LEADS ABNORMAL ECG COMPARED TO ECG 11/23/2023 15:01:38 SINUS BRADYCARDIA NOW PRESENT Electronically Signed On 11-24-2023 8:12:46 HEAT TREATMENT TECHNICIAN by Quinten Keller D.O.
--- NOTE | 2023-11-23 21:42 | ADMGEN ---
This patient, Yudelka Alvarez, was admitted to Intensive Care Unit-9. Patient/family oriented to hospital policies and general routines including ID bracelet, bed and alarms, visiting hours, pain management, procedures, bathroom and other care routines, personal items, smoking policy, room service/diet, and visiting hours. Information on how to activate the Rapid Response Team has been discussed. Patient/Family are encouraged to report perceived risks to care and to ask questions if they do not understand what they are told or what they should do.
[2023-11-23 21:46] LABS: Gastric Negative Control Negative; Gastric Positive Control Positive; Occult Blood Gastric Fluid Positive; pH Gastric Fluid 2 (1-8)
[2023-11-23 21:57] LABS: Glucose Point of Care 369 mg/dl (65-105)
[2023-11-23] MEDS: SODIUM BICARBONATE 8.4% 50 MEQ/50 ML SYRINGE IV PUSH (21:59)
[2023-11-23] MEDS: INSULIN HUMAN REGULAR (*BKC) 100 UNITS/ML 12 UNITS IV PUSH (22:15)
--- NOTE | 2023-11-23 22:17 | PM.IMHP ---
H&P: HPI History of Present Illness Date/Time: 11/23/23 21:00 Chief Complaint: Cardiac arrest Narrative: 43-year-old female with past medical history of morbid obesity, insulin-dependent diabetes mellitus, essential hypertension, and depression who presented to the ER via EMS after cardiac arrest witnessed by EMS. patient has been having flu-like symptoms for the last week. She had body aches and fatigue. She had been taking bite-ifi-kokjhkl medications. The patient had evidently known that she has been having some hyperkalemia and had refused to come to the ER. Today she felt worse and called EMS. The patient's reported that the patient has been having hyperkalemia recently but had refused to come into the ER until today when she became more ill. The patient was awake oriented and speaking without difficulty when EMS arrived to the home. When she stood up to get on the EMS stretcher the patient became unresponsive and was found to be in PEA. The patient required 3 rounds of epinephrine in the field and 1 dose of Decadron. She was intubated in the field. Her glucoses were in the 400s. The patient had return of rhythm but went back into PEA prior to arrival in the ER. She had Ramiro device in place on arrival. The patient had an additional 9 rounds of epinephrine and a couple of amps of sodium bicarb at as well as a calcium in the ER. She had return of perfusing rhythm a couple of times with return of PEA. There was concerned that the patient may have had a pulmonary embolism given her sudden collapse in patient did receive tPA 50 mg in the ER. Initial labs demonstrated hyperkalemia with a potassium of 5.7 and acute on chronic kidney injury. [place] [address] and she was started on cefepime azithromycin and vancomycin. COVID influenza and RSV PCR was negative. CTA of the chest abdomen pelvis demonstrated multifocal pneumonia with moderate right-sided pleural effusion and small left pleural effusion. The patient's repeat electrolyte panel in the ER demonstrated potassium of 6.7. The patient did not receive the fluid boluses that have been ordered in the ER until just before she was transferred up to the ICU. The boluses were not on a pump in just dripping in the patient had only received about 1 L of fluid prior to arriving to the ICU. So the repeat BMP was performed without the patient having received fluid boluses. Patient was started on Levophed in the ER and was at 14 when she arrived to the ICU. Patient remained hypotensive and pressors were titrated up. Where having difficulty obtaining accurate pulse ox monitoring and I performed femoral art stick. Patient's peak pressures on the ventilator had climbed from when I initially evaluated her in the ER in were in the 50s. ABG demonstrating pH 7.18 pCO2 of 50 and PO2 of 22. Shortly thereafter respiratory therapy was able to flush the patient's ET tube and remove a large mucus plug. Patient had improvement in oxygen saturations up to 88- 95%. An hour long nebulizer treatment with albuterol and Atrovent was ordered. Patient's ventilator settings on arrival to the ICU were tidal volume 400 peep of 12, 100% FiO2 and rate of 20. After ABG result were obtained I did increase patient's rate up to 26. Consent was obtained for an arterial line and attempt was made at the right femoral without success and subsequently a left radial art line was placed. Repeat ABG obtained from art line demonstrated pH of 7.29 pCO2 of 32 and PO2 of 68 this was approximately an hour and half after initial ABG. History obtained from the ER records, nursing report, and EMS report. Patient has not been evaluated at our facility previously and family was not available at bedside. Review of Systems Review of Systems: ROS unobtainable: Yes unobtainable due to endotracheal tube PMFSH Past Medical History Medical History (Updated 11/24/23 @ 02:26 by Juliann Ordonez DO) Acute adjustmen
[2023-11-23 22:19] LABS: Alveolar/Arterial O2 Gradient 639.8 mmHg; Base Excess ABG -9.7 mEq/l (+/-2.0); Carboxyhemoglobin 0.3 % THb (0-2.0); Fractional Inspired Oxygen 100 %; HCO3 ABG 18.4 mEq/l (22.0-26.0); Methemoglobin ABG 1.2 %THb (0-1.5); Oxygen Content ABG 3.2 %vol (16.0-22.0); PCO2 ABG 50.5 mmHg (35.0-45.0); PO2 FiO2 Ratio Arterial Blood < 0.00 %; Reduced Hemoglobin 76.2 %THb (0-5.0); Total Hemoglobin 10.1 g/dL (12.0-18.0)
[2023-11-23 22:27] LABS: PO2 ABG < 27.0 mmHg (80.0-100.0)
[2023-11-23] MEDS: SODIUM CHLOR 3% 15 ML NEB (RESPIRATORY THERAPY) 6 ML INHALATION (22:30)
[2023-11-23 22:31] LABS: Device VENTILATOR; Modified Allen's Test Pass; Oxyhemoglobin 22.3 % THb (90.0-100.0); Site Drawn LEFT RADIAL
[2023-11-23 22:33] LABS: Arterial Blood Gas Vent Mode CMV; Arterial Blood Gas Ventilator rate 20 /MIN
[2023-11-23 22:34] LABS: Arterial Blood Gas PEEP 12 cmH2O; Arterial Blood Gas Tidal Volume 400 ml
[2023-11-23 22:40] LABS: Glucose Point of Care 357 mg/dl (65-105)
[2023-11-23] MEDS: ALBUTEROL SULFATE NEB 2.5 MG/3 ML INH 10 MG INHALATION (22:55)
--- NOTE | 2023-11-23 22:58 | PC.NURSE ---
Sanam ring removed and placed in safe.
[2023-11-23 23:01] LABS: Creatine Kinase 104 U/L (30-135); Hemoglobin A1C 8.7 % (<5.7)
[2023-11-23 23:04] LABS: INR 3.7; Prothrombin Time 39.9 Seconds (11.1-14.7)
[2023-11-23 23:10] LABS: Lactic Acid Reflex 10.9 mmol/L (0.7-2.0)
[2023-11-23 23:34] LABS: NT Pro B Type Natriuretic Pept 5080 pg/mL (19.9-100)
[2023-11-24] VITALS (77 sets, daily range): BP systolic 83–160; BP diastolic 40–96; PULSE 49–73; RESP 22–26; TEMP 33.9–36.8; O2SAT 93–99; BMI 44.2
[2023-11-24 00:12] LABS: Base Excess ABG -10.4 mEq/l (+/-2.0); Fractional Inspired Oxygen 100 %; HCO3 ABG 15.1 mEq/l (22.0-26.0); Oxygen Content ABG 14.4 %vol (16.0-22.0); Oxygen Saturation ABG 91.9 % (95.0-100.0); Oxyhemoglobin 87.9 % THb (90.0-100.0); PO2 FiO2 Ratio Arterial Blood 0.68 %; Total Hemoglobin 11.6 g/dL (12.0-18.0)
[2023-11-24 00:13] LABS: Device VENTILATOR; Site Drawn ARTLINE; pH ABG 7.291 (7.350-7.450)
[2023-11-24 00:14] LABS: Arterial Blood Gas PEEP 12 cmH2O; Arterial Blood Gas Tidal Volume 400 ml; Arterial Blood Gas Vent Mode CMV; Arterial Blood Gas Ventilator rate 26 /MIN
[2023-11-24] MEDS: INSULIN HUMAN REGULAR (*BKC) 100 UNITS/ML 12 UNITS IV PUSH (00:14)
[2023-11-24] MEDS: NOREPINEPHRINE 8 MG/D5W 250 ML 8 MG/250 ML BAG 37.5 MG IV CONT (00:17)
[2023-11-24] MEDS: PANTOPRAZOLE SODIUM IV 40 MG VIAL IV PUSH ×3 (00:17→21:10)
[2023-11-24 00:30] LABS: Glucose Point of Care 327 mg/dl (65-105)
[2023-11-24 01:17] LABS: Anion Gap 20 mmol/L (8-16); Blood Urea Nitrogen 84 mg/dL (7-17); Carbon Dioxide 18 mmol/L (22-30); Chloride 95 mmol/L (98-107); Estimated CRCL calculation 25 ml/min; Estimated Glomerular Filt Rate 16; Glucose 322 mg/dL (65-110); Phosphorus 6.7 mg/dL (2.5-4.5); Potassium 4.4 mmol/L (3.4-5.0); Sodium 133 mmol/L (137-145)
[2023-11-24 01:19] LABS: MRSA (PCR) NOT DETECTED (NOT DETECTE)
[2023-11-24] MEDS: INSULIN HUMAN REGULAR (*BKC) 100 UNITS in SODIUM CHLORIDE 0.9% IV 99 ML 11 UNITS IV CONT (01:20)
[2023-11-24 01:26] LABS: Glucose Point of Care 321 mg/dl (65-105)
[2023-11-24] MEDS: SODIUM CHLORIDE 0.9% IV 1,000 ML 100 ML IV CONT (01:31)
[2023-11-24] MEDS: HYDROCORTISONE SODIUM SUCCINATE 100 MG/2 ML VIAL IV PUSH ×4 (01:31→21:10)
[2023-11-24 02:42] LABS: Glucose Point of Care 355 mg/dl (65-105)
[2023-11-24 02:47] LABS: Barbiturate Screen Urine Negative (Negative); Benzodiazepines Screen Urine Negative (Negative)
--- NOTE | 2023-11-24 02:52 | WPDPROCEDUR ---
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 Both attempts appeared to have puncture of the right femoral artery on ultrasound however blood return was venous. Subsequently converted the procedure to a left radial art line. Had successful placement after 1 attempt. Straight line aero kit used without complications. Obtain arterial blood flow. Line is somewhat positional for drawing ABGs but is monitoring blood pressures. Blood pressures are correlating with the cuff pressures. Line was placed as respiratory therapy was having difficulty obtaining ABGs.
[2023-11-24 03:02] LABS: Amphetamine Screen Urine Negative (Negative); Cannabinoid Screen Urine Negative (Negative); Cocaine Screen Urine Negative (Negative); Methadone Screen Urine Negative (Negative); Opiate Screen Urine Negative (Negative)
[2023-11-24] MEDS: IPRATROPIUM BR 0.02% INH SOLN 0.5 MG/2.5 ML VIAL INHALATION ×4 (03:03→20:23)
[2023-11-24] MEDS: ALBUTEROL SULFATE NEB 2.5 MG/3 ML INH 5 MG INHALATION ×4 (03:03→20:23)
[2023-11-24 03:37] LABS: Phencyclidine Screen Urine Positive (Negative)
[2023-11-24 03:50] LABS: Glucose Point of Care 313 mg/dl (65-105)
[2023-11-24 05:06] LABS: Glucose Point of Care 273 mg/dl (65-105)
[2023-11-24] MEDS: CISATRACURIUM BESYLATE 20 MG/10 ML VIAL 17 MG IV PUSH (05:12)
[2023-11-24 05:19] LABS: Hematocrit 34.1 % (37.0-47.0); Hemoglobin 10.4 g/dL (12.0-15.0); Mean Corpuscular HGB Conc 30.5 g/dl (32-36); Mean Corpuscular Hemoglobin 28.2 pg (26-34); Mean Corpuscular Volume 92.4 fl (80-100); Mean Platelet Volume 10.3 fl (7.4-10.4); Platelet Count Result 405 k/mm3 (150-375); Red Blood Count 3.69 M/mm3 (4.2-5.4); Red Cell Distribution Width 14.1 % (11.5-14.5); White Blood Count 41.3 K/mm3 (4.5-10.0)
[2023-11-24 05:29] LABS: INR 3.9; Prothrombin Time 41.3 Seconds (11.1-14.7)
[2023-11-24 05:30] LABS: Alveolar/Arterial O2 Gradient 532.3 mmHg; Base Excess ABG -6.9 mEq/l (+/-2.0); Fractional Inspired Oxygen 100 %; HCO3 ABG 17.7 mEq/l (22.0-26.0); Oxygen Content ABG 16.1 %vol (16.0-22.0); Oxygen Saturation ABG 98.8 % (95.0-100.0); PCO2 ABG 32.6 mmHg (35.0-45.0); PO2 ABG 148.1 mmHg (80.0-100.0); PO2 FiO2 Ratio Arterial Blood 1.48 %; Total Hemoglobin 11.6 g/dL (12.0-18.0); pH ABG 7.352 (7.350-7.450)
[2023-11-24 05:31] LABS: Partial Thromboplastin Time 42.3 SECONDS (22.3-36.8)
[2023-11-24 05:33] LABS: Arterial Blood Gas PEEP 12 cmH2O; Arterial Blood Gas Tidal Volume 400 ml; Arterial Blood Gas Vent Mode CMV; Arterial Blood Gas Ventilator rate 26 /MIN; Device VENTILATOR; Site Drawn ARTLINE
[2023-11-24] MEDS: CISATRACURIUM BESYLATE 200 MG in DEXTROSE 5% 80 ML 10.2 ML IV CONT (05:33)
[2023-11-24 05:45] LABS: Glucose Point of Care 265 mg/dl (65-105)
--- NOTE | 2023-11-24 05:45 | ECG_ITS ---
Measurements Intervals [place] Rate: 55 P: 1 [place]: 144 QRS: 32 QRSD: 126 T: 0 QT: 468 QTc: 448 Interpretive Statements SINUS BRADYCARDIA LOW VOLTAGE IN LIMB LEADS CONSIDER ANTERIOR INFARCT, AGE INDETERMINATE BORDERLINE ST-T WAVE ABNORMALITY- INF/LAT LEADS BASELINE ARTIFACT- V2 ABNORMAL ECG COMPARED TO ECG 11/23/2023 21:17:33 HEART REATE HAS INCREASED Electronically Signed On 11-24-2023 8:23:56 TRANSIT SURVEY WORKER by Quinten Keller D.O.
[2023-11-24 06:02] LABS: Alkaline Phosphatase 234 U/L (38-126); Anion Gap 16 mmol/L (8-16); Bilirubin,Total 1.2 mg/dL (0.2-1.3); Blood Urea Nitrogen 88 mg/dL (7-17); Calcium 8.2 mg/dL (8.4-10.2); Carbon Dioxide 20 mmol/L (22-30); Chloride 97 mmol/L (98-107); Estimated CRCL calculation 24 ml/min; Estimated Glomerular Filt Rate 15; Glucose 284 mg/dL (65-110); Magnesium 1.9 mg/dL (1.6-2.3); Potassium 4.2 mmol/L (3.4-5.0); Sodium 133 mmol/L (137-145)
[2023-11-24 06:03] LABS: Lactic Acid Reflex 6.2 mmol/L (0.7-2.0)
[2023-11-24 06:31] LABS: Glucose Point of Care 276 mg/dl (65-105)
[2023-11-24 06:35] LABS: Alanine Aminotransferase 2362 U/L (6-35); Aspartate Amino Transferase 4581 U/L (14-36)
[2023-11-24] MEDS: INSULIN HUMAN REGULAR (*BKC) 100 UNITS in SODIUM CHLORIDE 0.9% IV 99 ML 17.5 UNITS IV CONT (08:14)
[2023-11-24 08:16] LABS: Reflex Lactic Acid Yes or No Add Lactic
--- NOTE | 2023-11-24 08:19 | WPDCNINT ---
Assessment and Plan Assessment and plan (1) Acute hypoxic respiratory failure: Code(s): J96.01 - Acute respiratory failure with hypoxia Status: Acute Assessment and Plan: Acute hypoxic respiratory failure likely secondary to combination of pneumonia and pulmonary edema Hold further IV fluids Treatment of pneumonia as below ABG and chest x-ray reviewed Decrease FiO2 to 80% and continue to wean Peep is currently at 10 and will be continued Continue bronchodilators (2) Sepsis: Code(s): A41.9 - Sepsis, unspecified organism Status: Acute Assessment and Plan: CT scan done on presentation showed patchy airspace opacities throughout the lungs consistent with pneumonia or pulmonary edema Blood sputum and urine cultures have been sent Continue empiric vancomycin cefepime and azithromycin (3) Shock: Code(s): R57.9 - Shock, unspecified Status: Acute Assessment and Plan: Multifactorial shock secondary to sepsis and cardiogenic Continue Levophed and add vasopressin Continue hydrocortisone Hold further IV fluids due to volume overload (4) DKA (diabetic ketoacidosis): Qualifiers: Diabetes mellitus complication detail: without coma Diabetes mellitus type: type 1 Qualified Code(s): E10.10 - Type 1 diabetes mellitus with ketoacidosis without coma Code(s): E11.10 - Type 2 diabetes mellitus with ketoacidosis without coma Status: Acute Assessment and Plan: Patient on presentation was in DKA and was started on IV insulin infusion. Her anion gap has closed but I will continue insulin infusion at this time and continue serial electrolyte monitoring. Will discontinue further fluids due to volume overload (5) Acute kidney injury superimposed on CKD: Code(s): N17.9 - Acute kidney failure, unspecified; N18.9 - Chronic kidney disease, unspecified Status: Acute Assessment and Plan: Patient has history of chronic kidney disease likely secondary to diabetes and hypertension and now presented with much elevated creatinine which is likely multifactorial and secondary to sepsis, hypoxia and cardiac arrest. I also received IV contrast for her CTA although that is probably not responsible for her JOHN PAUL She has received fluids and now appears to be volume overloaded hence further fluids will be held Potassium is normalized with treatment and will be monitored CT scan of the abdomen did not show any hydronephrosis stone CK level was normal Monitor urine output electrolytes and creatinine Consult nephrology (6) Hyperkalemia: Code(s): E87.5 - Hyperkalemia Status: Acute Assessment and Plan: Patient has been having mild hyperkalemia as an outpatient and now presented with K which e w went up to 6.7 was treated with medications. Potassium level has now normalized. Monitor and treat accordingly (7) Cardiac arrest: Code(s): I46.9 - Cardiac arrest, cause unspecified Status: Acute Assessment and Plan: Patient had cardiac arrest with unknown clear etiology. Possible etiologies are respiratory failure from pneumonia and congestive heart failure and possibility of hyperkalemia leading to PEA She received empiric tPA in the ER for suspected PE but CT scan was negative for any pulmonary embolism Her hyperkalemia has been treated and potassium level has normalized EKG shows nonspecific ST-T changes and there is mild elevation in troponin which could be secondary to CPR and cardiac arrest. Check echocardiogram Treatment of respiratory failure sepsis as below Add aspirin 24 hours after tPA administration (8) Elevated troponin: Code(s): R79.89 - Other specified abnormal findings of blood chemistry Status: Acute Assessment and Plan: See above (9) Multifocal pneumonia: Code(s): J18.9 - Pneumonia, unspecified organism Status: Acute Assessment and Plan: See above (10) Pulmonary edema: Code(s): J81.1
[2023-11-24 09:24] LABS: Anion Gap 14 mmol/L (8-16); Blood Urea Nitrogen 93 mg/dL (7-17); Calcium 8.4 mg/dL (8.4-10.2); Carbon Dioxide 24 mmol/L (22-30); Chloride 96 mmol/L (98-107); Estimated CRCL calculation 24 ml/min; Estimated Glomerular Filt Rate 15; Glucose 228 mg/dL (65-110); Lactic Acid 3.7 mmol/L (0.7-2.0); Potassium 3.8 mmol/L (3.4-5.0); Sodium 134 mmol/L (137-145)
--- NOTE | 2023-11-24 09:27 | PM.IMPN ---
Progress Note: A&P Assessment and Plan (1) Anoxic brain injury: Code(s): G93.1 - Anoxic brain damage, not elsewhere classified Status: Acute (2) Shock: Code(s): R57.9 - Shock, unspecified Status: Acute (3) DKA (diabetic ketoacidosis): Qualifiers: Diabetes mellitus complication detail: without coma Diabetes mellitus type: type 1 Qualified Code(s): E10.10 - Type 1 diabetes mellitus with ketoacidosis without coma Code(s): E11.10 - Type 2 diabetes mellitus with ketoacidosis without coma Status: Acute (4) Septic shock: Code(s): A41.9 - Sepsis, unspecified organism; R65.21 - Severe sepsis with septic shock Status: Acute (5) Acute respiratory distress syndrome (ARDS): Code(s): J80 - Acute respiratory distress syndrome Status: Acute (6) Acute kidney injury superimposed on CKD: Code(s): N17.9 - Acute kidney failure, unspecified; N18.9 - Chronic kidney disease, unspecified Status: Acute Plan (1) Acute hypoxic respiratory failure: ?Code(s): J96.01 - Acute respiratory failure with hypoxia ?Status:?Acute ?Assessment and Plan: Acute hypoxic respiratory failure likely secondary to combination of pneumonia and pulmonary edema Hold further IV fluids Treatment of pneumonia as below ABG and chest x-ray reviewed Decrease FiO2 to 80% and continue to wean Peep is currently at 10 and will be continued Continue bronchodilators (2) Sepsis: ?Code(s): A41.9 - Sepsis, unspecified organism ?Status:?Acute ?Assessment and Plan: CT scan done on presentation showed patchy airspace opacities throughout the lungs consistent with pneumonia or pulmonary edema Blood sputum and urine cultures have been sent Continue empiric vancomycin cefepime and azithromycin (3) Shock: ?Code(s): R57.9 - Shock, unspecified ?Status:?Acute ?Assessment and Plan: Multifactorial shock secondary to sepsis and cardiogenic Continue Levophed and add vasopressin Continue hydrocortisone Hold further IV fluids due to volume overload (4) DKA (diabetic ketoacidosis): ?Qualifiers: ?Diabetes mellitus complication detail:?without coma??Diabetes mellitus type:?type 1? Qualified Code(s):?E10.10 - Type 1 diabetes mellitus with ketoacidosis without coma ?Code(s): E11.10 - Type 2 diabetes mellitus with ketoacidosis without coma ?Status:?Acute ?Assessment and Plan: Patient on presentation was in DKA and was started on IV insulin infusion.? Her anion gap has closed but I will continue insulin infusion at this time and continue serial electrolyte monitoring.? Will discontinue further fluids due to volume overload (5) Acute kidney injury superimposed on CKD: ?Code(s): N17.9 - Acute kidney failure, unspecified; N18.9 - Chronic kidney disease, unspecified ?Status:?Acute ?Assessment and Plan: Patient has history of chronic kidney disease likely secondary to diabetes and hypertension and now presented with much elevated creatinine which is likely multifactorial and secondary to sepsis, hypoxia and cardiac arrest.? I also received IV contrast for her CTA although that is probably not responsible for her JOHN PAUL She has received fluids and now appears to be volume overloaded hence further fluids will be held Potassium is normalized with treatment and will be monitored CT scan of the abdomen did not show any hydronephrosis stone CK level was normal Monitor urine output electrolytes and creatinine Consult nephrology (6) Hyperkalemia: ?Code(s): E87.5 - Hyperkalemia ?Status:?Acute ?Assessment and Plan: Patient has been having mild hyperkalemia as an outpatient and now presented with K which e w went up to 6.7 was treated with medications.? Potassium level has now normalized.? Monitor and treat accordingly (7) Cardiac arrest: ?Code(s): I46.9 - Cardiac arrest, cause unspecified ?Status:?Acute ?Assessment and Plan:
[2023-11-24 09:33] LABS: Fibrinogen 224 mg/dl (215-510)
[2023-11-24] MEDS: PERFLUTREN LIPID MICROSPHERES 1.5 ML VIAL DILUTED TO 10 ML TOTAL VOLUME IV PUSH (10:25)
--- NOTE | 2023-11-24 10:55 | IVDEFINITY ---
Prior to administration of IV Definity the patient was educated on the risks and benefits of the imaging enhancing agent including potential adverse side effects. The patient verbalized understanding. Allergies were verified. No exclusion criteria were identified and at least one of the following inclusion criteria were met: 1) physician request, 2) patient technically difficult to image (per the [place] [employer] guidelines of two or more segments not discernable within the apical view), or 3) questionable left ventricular function. ?
--- NOTE | 2023-11-24 11:32 | P.CONNP_ITS ---
Assessment and Plan Assessment and plan (1) JOHN PAUL (acute kidney injury): Code(s): N17.9 - Acute kidney failure, unspecified Status: Acute Assessment and Plan: * multifactorial etiology: * cardiac arrest * hemodynamic instability * sepsis/infection * hypoxia * contrast exposure (CTA of chest on admission) * pre-renal factors * diuretic therapy prior to admission * elevated K+ noted on admission * s/p aggressive IVF resuscitation * CT scan of abdomen without obstruction; CPK normal * follow-up on urine studies and renal ultrasound * at risk for SAP TECHNICAL ARCHITECT/dialysis * follow repeat labs and UOP (2) Stage 3b chronic kidney disease: Code(s): N18.32 - Chronic kidney disease, stage 3b Status: Chronic Assessment and Plan: * evidence of renal insufficiency/chronic kidney disease 2021 * creatinine seems to run around 1.3 - 1.7mg/dl * presumably due to hypertension, diabetes, and vascular disease (3) Hyperkalemia: Code(s): E87.5 - Hyperkalemia Status: Acute Assessment and Plan: * noted on admission and as an outpatient * s/p medical management with improvement * possible type IV RTA (common in diabetics)? * follow repeat K+ levels (4) Sepsis: Code(s): A41.9 - Sepsis, unspecified organism Status: Acute Assessment and Plan: * possibly due to pneumonia * CT scan on admission sugesstive of pneumonia and/or pulmonary edema * follow culture data * on empiric antibiotics (5) Shock: Code(s): R57.9 - Shock, unspecified Status: Acute Assessment and Plan: * due to sepsis versus cardiac arrest verssus combination of both(?) * on vasopressor therapy although being weaned * s/p aggressive IVF resuscitation -- on hold due to concerns of volume overload * see #4 * follow trend of hemodynamics (6) Acute hypoxic respiratory failure: Code(s): J96.01 - Acute respiratory failure with hypoxia Status: Acute Assessment and Plan: * felt to be secondary to combination of pneumonia and pulmonary edema in conjunction with cardiac arrest * IVFs on hold * antibiotics for pneumonia * continue ventilator support * weaning once more stable (7) Cardiac arrest: Code(s): I46.9 - Cardiac arrest, cause unspecified Status: Acute Assessment and Plan: * etiology not entirely clear: * pneumonia? * CHF? * hyperkalemia? * primary cardiac event? * follow troponins (elevation could just be from cardiac arrest + CPR) * follow-up on Echo (8) Anoxic brain injury: Code(s): G93.1 - Anoxic brain damage, not elsewhere classified Status: Acute Assessment and Plan: * suspected given encephalopathy after resuscitation efforts and down time s/p crdiac arrest * CT of head negative * initiated on TTM protocol . (9) Diabetes: Code(s): E11.9 - Type 2 diabetes mellitus without complications Status: Chronic Assessment and Plan: * follow accu-cheks * on insulin gtt (noted DKA on admission) * glycemic control per immigration associate/hospitalists I will continue follow patient with you while she remains hospitalized to make further recommendations as needed. Thank you for allowing me to participate in the care of this patient. History of Present Illness Reason for Consult Consult date: 11/24/23 Reason for consult: acute renal failure (on chronic kidney disease) Chief Complaint Chief complaint: CARDIAC ARREST, multifoca
--- NOTE | 2023-11-24 11:32 | PM.CNNEP ---
Assessment and Plan Assessment and plan (1) JOHN PAUL (acute kidney injury): Code(s): N17.9 - Acute kidney failure, unspecified Status: Acute Assessment and Plan: multifactorial etiology: cardiac arrest hemodynamic instability sepsis/infection hypoxia contrast exposure (CTA of chest on admission) pre-renal factors diuretic therapy prior to admission elevated K+ noted on admission s/p aggressive IVF resuscitation CT scan of abdomen without obstruction; CPK normal follow-up on urine studies and renal ultrasound at risk for AUTOMOBILE MECHANIC RADIATOR/dialysis follow repeat labs and UOP (2) Stage 3b chronic kidney disease: Code(s): N18.32 - Chronic kidney disease, stage 3b Status: Chronic Assessment and Plan: evidence of renal insufficiency/chronic kidney disease 2021 creatinine seems to run around 1.3 - 1.7mg/dl presumably due to hypertension, diabetes, and vascular disease (3) Hyperkalemia: Code(s): E87.5 - Hyperkalemia Status: Acute Assessment and Plan: noted on admission and as an outpatient s/p medical management with improvement possible type IV RTA (common in diabetics)? follow repeat K+ levels (4) Sepsis: Code(s): A41.9 - Sepsis, unspecified organism Status: Acute Assessment and Plan: possibly due to pneumonia CT scan on admission sugesstive of pneumonia and/or pulmonary edema follow culture data on empiric antibiotics (5) Shock: Code(s): R57.9 - Shock, unspecified Status: Acute Assessment and Plan: due to sepsis versus cardiac arrest verssus combination of both(?) on vasopressor therapy although being weaned s/p aggressive IVF resuscitation -- on hold due to concerns of volume overload see #4 follow trend of hemodynamics (6) Acute hypoxic respiratory failure: Code(s): J96.01 - Acute respiratory failure with hypoxia Status: Acute Assessment and Plan: felt to be secondary to combination of pneumonia and pulmonary edema in conjunction with cardiac arrest IVFs on hold antibiotics for pneumonia continue ventilator support weaning once more stable (7) Cardiac arrest: Code(s): I46.9 - Cardiac arrest, cause unspecified Status: Acute Assessment and Plan: etiology not entirely clear: pneumonia? CHF? hyperkalemia? primary cardiac event? follow troponins (elevation could just be from cardiac arrest + CPR) follow-up on Echo (8) Anoxic brain injury: Code(s): G93.1 - Anoxic brain damage, not elsewhere classified Status: Acute Assessment and Plan: suspected given encephalopathy after resuscitation efforts and down time s/p crdiac arrest CT of head negative initiated on TTM protocol . (9) Diabetes: Code(s): E11.9 - Type 2 diabetes mellitus without complications Status: Chronic Assessment and Plan: follow accu-cheks on insulin gtt (noted DKA on admission) glycemic control per pierce and shave press operator/hospitalists I will continue follow patient with you while she remains hospitalized to make further recommendations as needed. Thank you for allowing me to participate in the care of this patient. History of Present Illness Reason for Consult Consult date: 11/24/23 Reason for consult: acute renal failure (on chronic kidney disease) Chief Complaint Chief complaint: CARDIAC ARREST, multifocal pnuemonia History of Present Illness Narrative: All the information that I have obtained is from review of the electronic medical record as well as discussion with the physician/ nurses involved the patient's care as she is unable to provide me with any history due to her current clinical status. The patient is a 43-year-old female with a past medical history as outlined below who presented to [facility] room via EMS status post cardiac arrest. Apparently, for the last week or so, the patient has be
[2023-11-24] MEDS: NOREPINEPHRINE 8 MG/D5W 250 ML 8 MG/250 ML BAG 11.25 MG IV CONT (11:36)
[2023-11-24 12:11] LABS: Lactic Acid Reflex 3.1 mmol/L (0.7-2.0)
[2023-11-24 12:22] LABS: Glucose Point of Care 179 mg/dl (65-105)
[2023-11-24 12:22] LABS: Glucose Point of Care 220 mg/dl (65-105)
[2023-11-24 12:22] LABS: Glucose Point of Care 236 mg/dl (65-105)
[2023-11-24 12:22] LABS: Glucose Point of Care 234 mg/dl (65-105)
[2023-11-24 12:22] LABS: Glucose Point of Care 209 mg/dl (65-105)
[2023-11-24] MEDS: CENTRAL LINE FLUSH 10 ML IV PUSH ×2 (13:05→21:10)
[2023-11-24 13:18] LABS: Potassium 3.5 mmol/L (3.4-5.0)
[2023-11-24 13:22] LABS: Anion Gap 12 mmol/L (8-16); Blood Urea Nitrogen 95 mg/dL (7-17); Calcium 8.4 mg/dL (8.4-10.2); Carbon Dioxide 25 mmol/L (22-30); Chloride 98 mmol/L (98-107); Estimated CRCL calculation 23 ml/min; Estimated Glomerular Filt Rate 14; Glucose 163 mg/dL (65-110); Sodium 135 mmol/L (137-145)
--- NOTE | 2023-11-24 13:45 | ECG_ITS ---
Measurements Intervals [place] Rate: 59 P: 25 [place]: 158 QRS: 29 QRSD: 102 T: 205 QT: 379 QTc: 378 Interpretive Statements SINUS BRADYCARDIA LOW QRS VOLTAGE- DIFFUSE LEADS CONSIDER ANTERIOR INFARCT, AGE INDETERMINATE BORDERLINE ST-T WAVE ABNORMALITY- INF/LAT LEADS BASELINE ARTIFACT- I, II, AVR, AVL, AVF, V1-V6 ABNORMAL ECG COMPARED TO ECG 11/24/2023 06:08:41 NO SIGNIFICANT CHANGES Electronically Signed On 11-24-2023 15:21:17 SCHOOL BUS DRIVER/TEACHER ASSISTANT by Quinten Keller D.O.
[2023-11-24 13:49] LABS: Glucose Point of Care 162 mg/dl (65-105)
[2023-11-24 13:49] LABS: Glucose Point of Care 174 mg/dl (65-105)
[2023-11-24 15:40] LABS: Glucose Point of Care 162 mg/dl (65-105)
[2023-11-24 16:00] LABS: Glucose Point of Care 173 mg/dl (65-105)
[2023-11-24] MEDS: CEFEPIME 2 GM/NS 50 ML 2 GM/50 ML BAG IVPB (16:44)
[2023-11-24] MEDS: CISATRACURIUM BESYLATE 200 MG in DEXTROSE 5% 80 ML 6.8 ML IV CONT (16:47)
[2023-11-24 17:00] LABS: Glucose Point of Care 195 mg/dl (65-105)
[2023-11-24 17:24] LABS: Hematocrit 30.7 % (37.0-47.0); Hemoglobin 9.9 g/dL (12.0-15.0); Mean Corpuscular HGB Conc 32.2 g/dl (32-36); Mean Corpuscular Hemoglobin 28.4 pg (26-34); Mean Platelet Volume 10.4 fl (7.4-10.4); Platelet Count Result 337 k/mm3 (150-375); Red Blood Count 3.49 M/mm3 (4.2-5.4); White Blood Count 40.5 K/mm3 (4.5-10.0)
[2023-11-24] MEDS: AZITHROMYCIN 500 MG/NS 250 ML 500 MG/250 ML BAG 250 MG IVPB (17:24)
[2023-11-24 17:45] LABS: Lactic Acid Reflex 1.9 mmol/L (0.7-2.0)
[2023-11-24 17:47] LABS: Anion Gap 12 mmol/L (8-16); Blood Urea Nitrogen 98 mg/dL (7-17); Calcium 8.2 mg/dL (8.4-10.2); Carbon Dioxide 24 mmol/L (22-30); Chloride 96 mmol/L (98-107); Estimated CRCL calculation 22 ml/min; Estimated Glomerular Filt Rate 13; Glucose 186 mg/dL (65-110); Potassium 3.8 mmol/L (3.4-5.0); Sodium 132 mmol/L (137-145)
[2023-11-24 17:55] LABS: Glucose Point of Care 213 mg/dl (65-105)
[2023-11-24 18:19] LABS: INR 3.3; Prothrombin Time 35.9 Seconds (11.1-14.7)
[2023-11-24 18:20] LABS: Partial Thromboplastin Time 37.1 SECONDS (22.3-36.8)
[2023-11-24] MEDS: INSULIN GLARGINE (*BKC) 100 UNITS/ML 10 UNITS SUB-Q (18:50)
[2023-11-24 19:20] LABS: Glucose Point of Care 213 mg/dl (65-105)
[2023-11-24 19:32] LABS: Total Protein Urine Random 69 mg/dL; Ur Ttl Prot Creatinine Ratio 0.96 mg/mg (0-0.20); Urea Random Urine 314 MG/DL
[2023-11-24 19:55] LABS: Sodium Urine Random 16 meq/L
[2023-11-24 20:02] LABS: Glucose Point of Care 238 mg/dl (65-105)
[2023-11-24 21:05] LABS: Glucose Point of Care 259 mg/dl (65-105)
[2023-11-24] MEDS: MINERAL OIL/WHITE PETROLATUM OINTMENT 1 APPLIC EACH EYE (21:10)
[2023-11-24] MEDS: INSULIN ASPART (*BKC) 100 UNITS/ML SUB-Q (21:10)
[2023-11-24 21:16] LABS: Anion Gap 11 mmol/L (8-16); Blood Urea Nitrogen 101 mg/dL (7-17); Carbon Dioxide 23 mmol/L (22-30); Chloride 97 mmol/L (98-107); Estimated CRCL calculation 21 ml/min; Estimated Glomerular Filt Rate 13; Glucose 235 mg/dL (65-110); Potassium 4.2 mmol/L (3.4-5.0); Sodium 131 mmol/L (137-145)
[2023-11-24 21:21] LABS: Vancomycin Random 20.8 ug/mL (10-20)
[2023-11-24 21:53] LABS: Eosinophil Urine None Seen % (None Seen); Urine Eos QC 2nd Tech Confirmed
--- NOTE | 2023-11-24 21:53 | ECHO_ITS ---
Patient Info Name: Yudelka Alvarez Age: 43 years : 1980 Gender: Female Ht: 63 in Wt: 257 lbs BSA: 2.34 m2 HR: 55 bpm BP: 83 / 54 mmHg Heart Rhythm: Sinus Rhythm Technical Quality: Poor Exam Date: 11/24/2023 10:16 AM Exam Location: Echo Lab Patient Status: Inpatient Admit Date: 11/23/2023 Staff Ordering Physician: Juliann Ordonez DO Cylinder Inspector: James Arthur RDCS Attending Provider: Juliann Ordonez DO Referring Physician: José Luis SCHMITT; Exam Type: CA echo dop color flow w con Study Info Indications - cadiac arrest, hyperkelemia Complete two-dimensional, color flow and Doppler transthoracic echocardiogram is performed with contrast to opacify the left ventricle and to improve the deliniation of the left ventricle endocardial borders. Contrast/Agitated Saline Contrast/Ag. Saline: Definity Amount: 3.00 ml Reason for Poor Study: poor echocardiographic windows Summary 1. Technically challenging echocardiogram in this patient because of obesity and mechanical ventilation. 2. Grossly normal looking left ventricular size and systolic contractility, definity contrast utilized. 3. Poorly visualized aortic valve which is functioning normally by Doppler. 4. Very small amount of mitral regurgitation. 5. No pericardial fluid. Left Ventricle Left ventricular chamber dimension is normal. Left ventricular systolic function is normal, estimated at 55-60%. The left ventricular diastolic function is normal. Right Ventricle Right ventricular chamber dimension is normal. Left Atria Left atrial chamber dimension is normal. Right Atria Right atrial chamber dimension is normal. Aortic Valve The aortic valve is normal. Pulmonic Valve The pulmonic valve is not well visualized. Mitral Valve The mitral valve has normal leaflets. Tricuspid Valve The tricuspid valve leaflets are not well visualized. Pericardium/Pleural The pericardium appears normal. Aorta The aortic root size at the sinus of Valsalva is normal. Left Ventricular Outflow Tract Name Value Normal LVOT 2D LVOT Diameter 2.10 cm LVOT Doppler LVOT Peak Gradient 5 mmHg LVOT Mean Gradient 3 mmHg LVOT VTI 23.56 cm LVOT VTI/AV VTI Ratio 0.68 LVOT Stroke Volume 81.60 ml LVOT CO 5.13 l/min LVOT CI 2.19 L/min/m2 Pulmonic Valve Name Value Normal RVOT Doppler RVOT Peak Gradient 2 mmHg PV Doppler PV Peak Gradient 4 mmHg Mitral Valve Name Value Normal
[2023-11-25] VITALS (61 sets, daily range): BP systolic 101–138; BP diastolic 39–67; PULSE 62–76; RESP 16–26; TEMP 36.1–37.2; O2SAT 91–98
[2023-11-25] MEDS: INSULIN ASPART (*BKC) 100 UNITS/ML SUB-Q ×6 (00:06→20:14)
[2023-11-25 00:18] LABS: Glucose Point of Care 252 mg/dl (65-105)
[2023-11-25] MEDS: ALBUTEROL SULFATE NEB 2.5 MG/3 ML INH 5 MG INHALATION ×4 (01:35→20:18)
[2023-11-25] MEDS: IPRATROPIUM BR 0.02% INH SOLN 0.5 MG/2.5 ML VIAL INHALATION ×4 (01:35→20:18)
[2023-11-25 04:35] LABS: Glucose Point of Care 266 mg/dl (65-105)
[2023-11-25 05:00] LABS: pH ABG 7.506 (7.350-7.450)
[2023-11-25 05:01] LABS: Base Excess ABG -1.7 mEq/l (+/-2.0); HCO3 ABG 20.4 mEq/l (22.0-26.0); Oxygen Saturation ABG 95.8 % (95.0-100.0); PCO2 ABG 26.4 mmHg (35.0-45.0); PO2 ABG 70.3 mmHg (80.0-100.0)
[2023-11-25 05:02] LABS: Total Hemoglobin 10.7 g/dL (12.0-18.0)
[2023-11-25 05:04] LABS: Alveolar/Arterial O2 Gradient 400.4 mmHg; Carboxyhemoglobin 0.3 % THb (0-2.0); Oxyhemoglobin 92.7 % THb (90.0-100.0)
[2023-11-25 05:05] LABS: Fractional Inspired Oxygen 70 %; Methemoglobin ABG 0.3 %THb (0-1.5); Modified Allen's Test Pass; Reduced Hemoglobin 6.7 %THb (0-5.0); Site Drawn ARTLINE
[2023-11-25 05:06] LABS: Arterial Blood Gas PEEP 10 cmH2O; Arterial Blood Gas Vent Mode CMV; Arterial Blood Gas Ventilator rate 26 /MIN; Device VENTILATOR
[2023-11-25 05:07] LABS: Arterial Blood Gas Tidal Volume 400 ml
[2023-11-25] MEDS: HYDROCORTISONE SODIUM SUCCINATE 100 MG/2 ML VIAL IV PUSH (05:17)
[2023-11-25] MEDS: VANCOMYCIN 1,250 MG/NS 250 ML 1,250 MG/250 ML BAG 166.67 MG IVPB (05:17)
[2023-11-25] MEDS: CENTRAL LINE FLUSH 10 ML IV PUSH ×3 (05:18→20:14)
[2023-11-25 05:32] LABS: Hematocrit 30.5 % (37.0-47.0); Hemoglobin 9.9 g/dL (12.0-15.0); Mean Corpuscular HGB Conc 32.5 g/dl (32-36); Mean Corpuscular Hemoglobin 28.7 pg (26-34); Mean Corpuscular Volume 88.4 fl (80-100); Mean Platelet Volume 10.5 fl (7.4-10.4); Platelet Count Result 358 k/mm3 (150-375); Red Blood Count 3.45 M/mm3 (4.2-5.4); Red Cell Distribution Width 14.6 % (11.5-14.5); White Blood Count 44.3 K/mm3 (4.5-10.0)
[2023-11-25 05:44] LABS: Albumin Level 2.4 g/dL (3.5-5.1); Alkaline Phosphatase 233 U/L (38-126); Anion Gap 13 mmol/L (8-16); Blood Urea Nitrogen 109 mg/dL (7-17); Calcium 7.7 mg/dL (8.4-10.2); Carbon Dioxide 21 mmol/L (22-30); Chloride 97 mmol/L (98-107); Creatine Kinase 108 U/L (30-135); Estimated CRCL calculation 18 ml/min; Estimated Glomerular Filt Rate 11; Glucose 256 mg/dL (65-110); Magnesium 1.9 mg/dL (1.6-2.3); Phosphorus 5.4 mg/dL (2.5-4.5); Potassium 4.4 mmol/L (3.4-5.0); Sodium 131 mmol/L (137-145)
[2023-11-25 05:52] LABS: Alanine Aminotransferase 2011 U/L (6-35)
[2023-11-25 06:20] LABS: Aspartate Amino Transferase 1589 U/L (14-36)
[2023-11-25 06:36] LABS: Thyroid Stimulating Hormone Reflex 0.725 uIU/mL (0.465-4.68)
[2023-11-25 06:37] LABS: Hepatitis B Surface Antigen Negative (Negative)
[2023-11-25 06:54] LABS: Hepatitis B Surface Anti Res Negative
[2023-11-25 08:01] LABS: Glucose Point of Care 259 mg/dl (65-105)
[2023-11-25] MEDS: FUROSEMIDE INJ 100 MG/10 ML VIAL 80 MG IV PUSH (08:10)
[2023-11-25] MEDS: PROPOFOL IV EMULSION 100 ML 3.41 MG IV CONT (08:10)
[2023-11-25] MEDS: ENOXAPARIN 30 MG/0.3 ML SYRINGE SUB-Q (08:11)
[2023-11-25] MEDS: PANTOPRAZOLE SODIUM IV 40 MG VIAL IV PUSH ×2 (08:11→20:08)
[2023-11-25] MEDS: INSULIN GLARGINE (*BKC) 100 UNITS/ML 20 UNITS SUB-Q ×2 (08:11→20:11)
[2023-11-25] MEDS: MINERAL OIL/WHITE PETROLATUM OINTMENT 1 APPLIC EACH EYE ×2 (08:11→20:09)
--- NOTE | 2023-11-25 08:37 | WPDINTPN ---
Progress Note: A&P Assessment and Plan (1) Acute hypoxic respiratory failure: Code(s): J96.01 - Acute respiratory failure with hypoxia Status: Acute Assessment and Plan: Acute hypoxic respiratory failure likely secondary to combination of pneumonia and pulmonary edema Hold further IV fluids Treatment of pneumonia as below ABG and chest x-ray reviewed Decrease FiO2 to 70% and peep is at 10. Continue to wean Continue bronchodilators (2) Sepsis: Code(s): A41.9 - Sepsis, unspecified organism Status: Acute Assessment and Plan: CT scan done on presentation showed patchy airspace opacities throughout the lungs consistent with pneumonia or pulmonary edema Blood sputum and urine cultures have been sent and are pending Continue empiric cefepime and azithromycin Nasal MRSA was negative hence vancomycin discontinued in light of worsening renal function (3) Shock: Code(s): R57.9 - Shock, unspecified Status: Acute Assessment and Plan: Multifactorial shock secondary to sepsis and cardiogenic Off levophed and add vasopressin Will discontinue hydrocortisone Hold further IV fluids due to volume overload (4) DKA (diabetic ketoacidosis): Qualifiers: Diabetes mellitus type: type 1 Diabetes mellitus complication detail: without coma Qualified Code(s): E10.10 - Type 1 diabetes mellitus with ketoacidosis without coma Code(s): E11.10 - Type 2 diabetes mellitus with ketoacidosis without coma Status: Acute Assessment and Plan: Patient on presentation was in DKA and was started on IV insulin infusion. Her anion gap has closed and she has been transition to subcutaneous insulin. (5) Acute kidney injury superimposed on CKD: Code(s): N17.9 - Acute kidney failure, unspecified; N18.9 - Chronic kidney disease, unspecified Status: Acute Assessment and Plan: Patient has history of chronic kidney disease likely secondary to diabetes and hypertension and now presented with much elevated creatinine which is likely multifactorial and secondary to sepsis, hypoxia and cardiac arrest. She also received IV contrast for her CTA although that is probably not responsible for her JOHN PAUL She has received fluids and now appears to be volume overloaded hence further fluids will be held Potassium is normalized with treatment and will be monitored CT scan of the abdomen did not show any hydronephrosis or stone CK level was normal Nephrology consult the and renal ultrasound is ordered and pending Her creatinine has increased to 4.4 and urine output is poor. I will give dose of Lasix since she is now off vasopressors Monitor urine output electrolytes and creatinine She may need hemodialysis if renal function does not improve with conservative management (6) Hyperkalemia: Code(s): E87.5 - Hyperkalemia Status: Acute Assessment and Plan: Patient has been having mild hyperkalemia as an outpatient and now presented with K which e w went up to 6.7 was treated with medications. Potassium level has now normalized. Monitor and treat accordingly (7) Cardiac arrest: Code(s): I46.9 - Cardiac arrest, cause unspecified Status: Acute Assessment and Plan: Patient had cardiac arrest with unknown clear etiology. Possible etiologies are respiratory failure from pneumonia and congestive heart failure and possibility of hyperkalemia leading to PEA She received empiric tPA in the ER for suspected PE but CT scan was negative for any pulmonary embolism Her hyperkalemia has been treated and potassium level has normalized EKG shows nonspecific ST-T changes and there is mild elevation in troponin which could be secondary to CPR and cardiac arrest. Treatment of respiratory failure sepsis as below Add aspirin 24 hours after tPA administration Echocardiogram Summary ? 1. Technically challenging echocardiogram in this patient because of obesity and mechanical ventilation. ? 2.
--- NOTE | 2023-11-25 09:14 | P.PNIM_ITS ---
Progress Note: A&P Assessment and Plan (1) Acute hypoxic respiratory failure: Code(s): J96.01 - Acute respiratory failure with hypoxia Status: Acute Assessment and Plan: Acute hypoxic respiratory failure likely secondary to combination of pneumonia and pulmonary edema Hold further IV fluids Treatment of pneumonia as below ABG and chest x-ray reviewed Decrease FiO2 to 70% and peep is at 10. Continue to wean Continue bronchodilators (2) Sepsis: Code(s): A41.9 - Sepsis, unspecified organism Status: Acute Assessment and Plan: CT scan done on presentation showed patchy airspace opacities throughout the lungs consistent with pneumonia or pulmonary edema Blood sputum and urine cultures have been sent and are pending Continue empiric cefepime and azithromycin Nasal MRSA was negative hence vancomycin discontinued in light of worsening renal function (3) Shock: Code(s): R57.9 - Shock, unspecified Status: Acute Assessment and Plan: Multifactorial shock secondary to sepsis and cardiogenic Off levophed and add vasopressin Will discontinue hydrocortisone Hold further IV fluids due to volume overload (4) DKA (diabetic ketoacidosis): Qualifiers: Diabetes mellitus complication detail: without coma Diabetes mellitus type: type 1 Qualified Code(s): E10.10 - Type 1 diabetes mellitus with ketoacidosis without coma Code(s): E11.10 - Type 2 diabetes mellitus with ketoacidosis without coma Status: Acute Assessment and Plan: Patient on presentation was in DKA and was started on IV insulin infusion. Her anion gap has closed and she has been transition to subcutaneous insulin. (5) Acute kidney injury superimposed on CKD: Code(s): N17.9 - Acute kidney failure, unspecified; N18.9 - Chronic kidney disease, unspecified Status: Acute Assessment and Plan: Patient has history of chronic kidney disease likely secondary to diabetes and hypertension and now presented with much elevated creatinine which is likely multifactorial and secondary to sepsis, hypoxia and cardiac arrest. She also received IV contrast for her CTA although that is probably not responsible for her JOHN PAUL She has received fluids and now appears to be volume overloaded hence further fluids will be held Potassium is normalized with treatment and will be monitored CT scan of the abdomen did not show any hydronephrosis or stone CK level was normal Nephrology consult the and renal ultrasound is ordered and pending Her creatinine has increased to 4.4 and urine output is poor. I will give dose of Lasix since she is now off vasopressors Monitor urine output electrolytes and creatinine She may need hemodialysis if renal function does not improve with conservative management (6) Hyperkalemia: Code(s): E87.5 - Hyperkalemia Status: Acute Assessment and Plan: Patient has been having mild hyperkalemia as an outpatient and now presented with K which e w went up to 6.7 was treated with medications. Potassium level has now normalized. Monitor and treat accordingly (7) Cardiac arrest: Code(s): I46.9 - Cardiac arrest, cause unspecified Status: Acute Assessment and Plan: Patient had cardiac arrest with unknown clear etiology. Possible etiologies are respiratory failure from pneumonia and congestive heart failure and possibility of hyperkalemia leading to PEA She received empiric tPA in the ER for suspected PE but CT scan was negative for any pulmonary embolism Her hyperkalemia has been treated and potassium level has normalized EKG shows nonspecific ST
--- NOTE | 2023-11-25 09:22 | PM.CNCAR ---
Assessment and Plan Assessment and plan (1) Cardiac arrest: Code(s): I46.9 - Cardiac arrest, cause unspecified Status: Acute Plan This is a 43-year-old white female who presented to the hospital following resuscitation from PEA. Most likely this is read the result of significant hyperkalemia S described in previous notes however interestingly her electrocardiogram did not show any findings typical of this. At this point she is receiving appropriate aggressive supportive care and I agree with the beater worker helper that she will probably require the institution of hemodialysis based on her acute on chronic renal insufficiency. A patient this young following cardiac arrest with her risk factors should ideally undergo left heart catheterization when she is an acceptable candidate for that. That is not currently the case given her mental status and renal failure. We will follow her with you and if/when things improve when she becomes a candidate for evaluation we will proceed with that. At this point she is hemodynamically stable and there are no additional cardiac recommendations to that are required Pavan Cartagena MD [facility] History of Present Illness History of Present Illness Consult date/time: 11/25/23 09:22 Reason For Visit: CARDIAC ARREST, multifocal pnuemonia Narrative: This is a 43-year-old lady who is being seen by the intensivists request because she sustained a out of hospital cardiac arrest 2 days ago and was admitted to the hospital for treatment and evaluation. According to the records that she is not known to have any specific cardiac diagnosis prior to this although she does have diabetes chronic kidney disease hypertension and morbid obesity. According to the records she was known to be hyperkalemic and was advised by her physicians to come to the hospital for evaluation and treatment but refused to do so. She was then brought to the hospital by EMS after her call them when she collapsed and was found at her home to be in PEA. I do not have any ability to get any direct history from the patient as she is intubated sedated and on mechanical ventilator support in the ICU. Her electrocardiograms demonstrate sinus rhythm with low QRS voltage but really no typical changes of hyperkalemia. Her potassium level following resuscitation was 6.7. She has chronic kidney disease which is much worse at this time and the beater worker helper impression is that she is probably going to soon require institution of dialysis. An echocardiogram was done yesterday which I interpreted as being a suboptimal quality study because of her obesity and ventilator support however left ventricular systolic function was grossly intact and I did not see any Doppler evidence of any significant valvular pathology. There was no pericardial effusion. In this setting I am seeing this patient in consultation. This morning's labs show her BUN to be 109 your creatinine is 4.4. She is in sinus rhythm with normal AV conduction heart rate is 68. There have not been any arrhythmias since she has been in the ICU. Review of Systems Review of Systems: ROS unobtainable: Yes unobtainable due to endotracheal tube and unobtainable due to mental status PMFSH Past Medical History Medical History Acute adjustment disorder with anxiety CKD stage 3 secondary to diabetes Essential hypertension Hyperlipidemia Surgical History Surgical History Hx of cholecystectomy Family History Family History Other Unknown family medical history Social History Social History Social History: The patient is current everyday smoker. She lives at home with her and her elderly mother. Code status: Full code Surrogate decision maker: Years smoked: 16
[2023-11-25] MEDS: ASPIRIN 325 MG TABLET FEED TUBE (10:27)
[2023-11-25] MEDS: FENTANYL 2,500MCG/NS250ML(*CRX 2,500 MCG/250 ML BAG 7.5 MCG IV CONT ×2 (10:30→15:56)
[2023-11-25] MEDS: PROPOFOL IV EMULSION 100 ML 6.83 MG IV CONT ×2 (10:31→20:12)
[2023-11-25 11:44] LABS: Glucose Point of Care 274 mg/dl (65-105)
--- NOTE | 2023-11-25 11:45 | P.PNNP_ITS ---
Progress Note: A&P Assessment and Plan (1) JOHN PAUL (acute kidney injury): Code(s): N17.9 - Acute kidney failure, unspecified Status: Acute Assessment and Plan: * ongoing deterioration noted * multifactorial etiology: * cardiac arrest * hemodynamic instability * sepsis/infection * hypoxia * contrast exposure (CTA of chest on admission) * pre-renal factors * diuretic therapy prior to admission * s/p aggressive IVF resuscitation * evaluation to date: * CT scan of abdomen without obstruction * renal ultrasound left renal scarring and volume loss * CPK normal * urine electrolytes prerenal * urine eosinophils negative * moderate proteinuria * she remains at 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 * follow repeat K+ levels (4) Sepsis: Code(s): A41.9 - Sepsis, unspecified organism Status: Acute Assessment and Plan: * possibly due to pneumonia * CT scan on admission sugesstive of pneumonia and/or pulmonary edema * follow culture data * on empiric antibiotics * off vasopressor therapy (5) Acute hypoxic respiratory failure: Code(s): J96.01 - Acute respiratory failure with hypoxia Status: Acute Assessment and Plan: * felt to be secondary to combination of pneumonia and pulmonary edema in conjunction with cardiac arrest * IVFs on hold * antibiotics for pneumonia * continue ventilator support * weaning once more stable (6) Cardiac arrest: Code(s): I46.9 - Cardiac arrest, cause unspecified Status: Acute Assessment and Plan: * etiology not entirely clear: * pneumonia? * CHF? * hyperkalemia? * primary cardiac event? * trend of troponins (elevation could just be from cardiac arrest + CPR) * Echo results reviewed * Cardiology recommendations noted (7) Diabetes: Code(s): E11.9 - Type 2 diabetes mellitus without complications Status: Chronic Assessment and Plan: * follow accu-cheks * was on insulin gtt (noted DKA on admission) * transitioned to SQ insulin * glycemic control per crm marketing manager/hospitalists Discussed case with Dr. Mcintyre. Long extensive discussion (> 20 minutes) with the patient's family at bedside regarding her worsening renal dysfunction in association with declining urine output and the concern that she may require renal replacement therapy/dialysis if she runs into issues with volume overload, metabolic acidosis, critical electrolytes, and/or uremia. They appeared to voice understanding to this possibility. Will continue to follow. Subjective Date/time seen: 11/25/23 11:45 Interval history: Follow-up for acute kidney injury/acute renal failure on chronic kidney disease. Renal function continues to deteriorate as noted by trend of labs in association with declining urine output; remain intubated/sedated ando
--- NOTE | 2023-11-25 11:45 | PM.PNNEP ---
Progress Note: A&P Assessment and Plan (1) JOHN PAUL (acute kidney injury): Code(s): N17.9 - Acute kidney failure, unspecified Status: Acute Assessment and Plan: ongoing deterioration noted multifactorial etiology: cardiac arrest hemodynamic instability sepsis/infection hypoxia contrast exposure (CTA of chest on admission) pre-renal factors diuretic therapy prior to admission s/p aggressive IVF resuscitation evaluation to date: CT scan of abdomen without obstruction renal ultrasound left renal scarring and volume loss CPK normal urine electrolytes prerenal urine eosinophils negative moderate proteinuria she remains at risk for needing 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 follow repeat K+ levels (4) Sepsis: Code(s): A41.9 - Sepsis, unspecified organism Status: Acute Assessment and Plan: possibly due to pneumonia CT scan on admission sugesstive of pneumonia and/or pulmonary edema follow culture data on empiric antibiotics off vasopressor therapy (5) Acute hypoxic respiratory failure: Code(s): J96.01 - Acute respiratory failure with hypoxia Status: Acute Assessment and Plan: felt to be secondary to combination of pneumonia and pulmonary edema in conjunction with cardiac arrest IVFs on hold antibiotics for pneumonia continue ventilator support weaning once more stable (6) Cardiac arrest: Code(s): I46.9 - Cardiac arrest, cause unspecified Status: Acute Assessment and Plan: etiology not entirely clear: pneumonia? CHF? hyperkalemia? primary cardiac event? trend of troponins (elevation could just be from cardiac arrest + CPR) Echo results reviewed Cardiology recommendations noted (7) Diabetes: Code(s): E11.9 - Type 2 diabetes mellitus without complications Status: Chronic Assessment and Plan: follow accu-cheks was on insulin gtt (noted DKA on admission) transitioned to SQ insulin glycemic control per gun sealing machine operator/hospitalists Discussed case with Dr. Mcintyre. Long extensive discussion (> 20 minutes) with the patient's family at bedside regarding her worsening renal dysfunction in association with declining urine output and the concern that she may require renal replacement therapy/dialysis if she runs into issues with volume overload, metabolic acidosis, critical electrolytes, and/or uremia. They appeared to voice understanding to this possibility. Will continue to follow. Subjective Date/time seen: 11/25/23 11:45 Interval history: Follow-up for acute kidney injury/acute renal failure on chronic kidney disease. Renal function continues to deteriorate as noted by trend of labs in association with declining urine output; remain intubated/sedated andon mechanical ventilation; completed TTM protocol and has been re-warmed; weaned off vasopressor therapy with stable hemodynamics noted; following simple commands and nodding to yes/no questions; discussed situation with family at bedside. Exam Narrative: General: large WD/WN female intubated/sedated on mechanical ventilation Heart: normal S1 and S2; no rub Lungs: coarse breath sounds; decreased at bases Abdomen: soft, nontender, nondistended, positive bowel sounds Extremities: no cyanosis or clubbing; 1+ edema S
[2023-11-25 13:38] LABS: Glucose Point of Care 309 mg/dl (65-105)
[2023-11-25] MEDS: CEFEPIME 2 GM/NS 50 ML 2 GM/50 ML BAG IVPB (15:46)
[2023-11-25 16:01] LABS: Glucose Point of Care 308 mg/dl (65-105)
[2023-11-25] MEDS: AZITHROMYCIN 500 MG/NS 250 ML 500 MG/250 ML BAG 250 MG IVPB (18:48)
[2023-11-25 20:07] LABS: Glucose Point of Care 356 mg/dl (65-105)
--- NOTE | 2023-11-25 23:46 | PC.NURSE ---
Dr. Mcintyre called and notified regarding patient's BG trends. Ordered to start insulin GTT with no fluids and titrate per protocol, send BMP.
[2023-11-25] MEDS: INSULIN HUMAN REGULAR (*BKC) 100 UNITS in SODIUM CHLORIDE 0.9% IV 99 ML 11 UNITS IV CONT (23:59)
[2023-11-26] VITALS (51 sets, daily range): BP systolic 106–158; BP diastolic 42–78; PULSE 67–83; RESP 18–22; TEMP 36.1–37.2; O2SAT 90–98; BMI 46.0
[2023-11-26 00:55] LABS: Anion Gap 11 mmol/L (8-16); Calcium 7.8 mg/dL (8.4-10.2); Carbon Dioxide 23 mmol/L (22-30); Chloride 95 mmol/L (98-107); Estimated CRCL calculation 15 ml/min; Estimated Glomerular Filt Rate 8; Glucose 363 mg/dL (65-110); Potassium 4.6 mmol/L (3.4-5.0); Sodium 129 mmol/L (137-145)
[2023-11-26 01:11] LABS: Blood Urea Nitrogen 128 mg/dL (7-17)
[2023-11-26 01:23] LABS: Glucose Point of Care 362 mg/dl (65-105)
[2023-11-26 01:23] LABS: Glucose Point of Care 375 mg/dl (65-105)
[2023-11-26] MEDS: ALBUTEROL SULFATE NEB 2.5 MG/3 ML INH 5 MG INHALATION ×4 (02:20→20:27)
[2023-11-26] MEDS: IPRATROPIUM BR 0.02% INH SOLN 0.5 MG/2.5 ML VIAL INHALATION ×4 (02:21→20:29)
[2023-11-26 02:22] LABS: Glucose Point of Care 316 mg/dl (65-105)
[2023-11-26 03:23] LABS: Glucose Point of Care 299 mg/dl (65-105)
[2023-11-26 04:24] LABS: Glucose Point of Care 240 mg/dl (65-105)
[2023-11-26 04:29] LABS: Basophils Absolute Auto 0.1 K/mm3 (0.0-0.1); Basophils Percent Auto 0.3 % (0.2-1.2); Hematocrit 29.8 % (37.0-47.0); Hemoglobin 9.2 g/dL (12.0-15.0); Immature Granulocyte Absolute 0.96 K/mm3 (0.00-0.031); Immature Granulocyte Percent A 2.9 % (0-0.5); Lymphocytes Absolute Auto 0.57 K/mm3 (0.9-3.2); Lymphocytes Percent Auto 1.7 % (18.3-44.2); Mean Corpuscular HGB Conc 30.9 g/dl (32-36); Mean Corpuscular Hemoglobin 28.1 pg (26-34); Mean Corpuscular Volume 91.1 fl (80-100); Mean Platelet Volume 10.2 fl (7.4-10.4); Monocytes Absolute Auto 0.9 K/mm3 (0.1-0.6); Monocytes Percent Auto 2.8 % (2.6-8.5); Neutrophils Absolute Auto 30.9 K/mm3 (1.3-6.7); Neutrophils Percent Auto 92.3 % (45.5-73.1); Nucleated Red Blood Cells Absolute Auto 0.1 K/mm3 (0.0-0.012); Nucleated Red Blood Cells Perc 0.2 % (0.0-0.2); Platelet Count Result 308 k/mm3 (150-375); Red Blood Count 3.27 M/mm3 (4.2-5.4); Red Cell Distribution Width 14.6 % (11.5-14.5); White Blood Count 33.4 K/mm3 (4.5-10.0)
[2023-11-26 04:51] LABS: Alveolar/Arterial O2 Gradient 392.6 mmHg; Base Excess ABG -4.4 mEq/l (+/-2.0); Carboxyhemoglobin 0.3 % THb (0-2.0); Fractional Inspired Oxygen 70 %; HCO3 ABG 18.9 mEq/l (22.0-26.0); Methemoglobin ABG 0.3 %THb (0-1.5); Oxygen Content ABG 13.5 %vol (16.0-22.0); Oxygen Saturation ABG 95.8 % (95.0-100.0); Oxyhemoglobin 93.8 % THb (90.0-100.0); PCO2 ABG 28.6 mmHg (35.0-45.0); PO2 ABG 75.8 mmHg (80.0-100.0); PO2 FiO2 Ratio Arterial Blood 1.08 %; Reduced Hemoglobin 5.6 %THb (0-5.0); Total Hemoglobin 10.2 g/dL (12.0-18.0); pH ABG 7.437 (7.350-7.450)
[2023-11-26 04:52] LABS: Device VENTILATOR; Site Drawn ARTLINE
[2023-11-26 04:53] LABS: Arterial Blood Gas PEEP 10 cmH2O; Arterial Blood Gas Tidal Volume 400 ml; Arterial Blood Gas Vent Mode CMV; Arterial Blood Gas Ventilator rate 20 /MIN
[2023-11-26 04:54] LABS: Albumin Level 2.6 g/dL (3.5-5.1); Alkaline Phosphatase 227 U/L (38-126); Anion Gap 14 mmol/L (8-16); Bilirubin,Total 0.8 mg/dL (0.2-1.3); Carbon Dioxide 22 mmol/L (22-30); Chloride 97 mmol/L (98-107); Creatine Kinase 66 U/L (30-135); Estimated CRCL calculation 15 ml/min; Estimated Glomerular Filt Rate 8; Glucose 239 mg/dL (65-110); Magnesium 2.2 mg/dL (1.6-2.3); Phosphorus 6.3 mg/dL (2.5-4.5); Potassium 4.2 mmol/L (3.4-5.0); Sodium 133 mmol/L (137-145)
[2023-11-26] MEDS: CENTRAL LINE FLUSH 10 ML IV PUSH ×3 (05:19→21:11)
[2023-11-26 05:26] LABS: Glucose Point of Care 230 mg/dl (65-105)
[2023-11-26 05:38] LABS: Aspartate Amino Transferase 1085 U/L (14-36); Blood Urea Nitrogen 134 mg/dL (7-17)
[2023-11-26 05:39] LABS: Alanine Aminotransferase 2413 U/L (6-35)
[2023-11-26 05:43] LABS: Anisocytosis 1+ (NORMAL); Hypochromasia 1+ (NORMAL); Large Platelets Present; Platelet Clumps Present; Platelet Estimate Adequate (Adequate)
[2023-11-26 05:44] LABS: Burr Cells 1+ (NORMAL); Schistocytes None Seen (NORMAL)
[2023-11-26 06:33] LABS: Glucose Point of Care 215 mg/dl (65-105)
[2023-11-26] MEDS: INSULIN HUMAN REGULAR (*BKC) 100 UNITS in SODIUM CHLORIDE 0.9% IV 99 ML 13.5 UNITS IV CONT (06:58)
[2023-11-26 07:26] LABS: Glucose Point of Care 190 mg/dl (65-105)
[2023-11-26 08:25] LABS: Glucose Point of Care 205 mg/dl (65-105)
[2023-11-26] MEDS: ASPIRIN 325 MG TABLET FEED TUBE (08:59)
[2023-11-26] MEDS: MINERAL OIL/WHITE PETROLATUM OINTMENT 1 APPLIC EACH EYE ×2 (09:00→21:11)
[2023-11-26] MEDS: ENOXAPARIN 30 MG/0.3 ML SYRINGE SUB-Q (09:00)
[2023-11-26] MEDS: PANTOPRAZOLE SODIUM IV 40 MG VIAL IV PUSH ×2 (09:00→21:11)
[2023-11-26 09:30] LABS: Glucose Point of Care 179 mg/dl (65-105)
--- NOTE | 2023-11-26 09:39 | PM.PNCARD ---
Progress Note: A&P Assessment and Plan (1) Cardiac arrest: Code(s): I46.9 - Cardiac arrest, cause unspecified Status: Acute Plan This is a 43-year-old white female who presented to the hospital following resuscitation from PEA. Thought to be the result of significant hyperkalemia. Renal function still significantly abnormal with a creatinine of 5.6 today. Likely need dialysis. Continue supportive care. A patient this young following cardiac arrest with her risk factors should ideally undergo left heart catheterization when she is an acceptable candidate for that. That is not currently the case given her mental status and renal failure. We will follow her with you and if/when things improve when she becomes a candidate for evaluation we will proceed with that. Echo reviewed: Showing grossly preserved ejection fraction Dm Kelley MD, [facility] Subjective Date/time seen: 11/26/23 09:39 Interval history: 43-year-old hyperkalemia, PEA cardiac arrest Date of service 11/26/2023: She is intubated. Not responsive to verbal stimuli. Review of Systems Review of Systems: ROS unobtainable: Yes unobtainable due to endotracheal tube and unobtainable due to mental status Exam Const: Other: Obese white female appears her stated age intubated on mechanical ventilator support HENMT: Mouth: Yes moist mucous membranes Eyes: Sclera: sclerae normal Neck: Neck: supple Other: Carotid pulses are intact bilaterally. Unable to comment upon JVD given her body habitus Resp: Auscultation: clear to auscultation bilaterally Cardio: Rate: regular rate Rhythm: regular rhythm Other: PMI not palpable. No murmur no gallop GI: Auscultation: normal bowel sounds Skin: General skin exam: normal color Neuro: Other: Sedated Extrem: Other: Adequate perfusion, no significant edema Objective Data Vital Signs Vital Signs: Vital Signs - 24 hr 11/25/23 10:00 11/25/23 10:00 11/25/23 10:30 Temperature 36.6 C Pulse Rate 67 67 67 Respiratory Rate 21 H 21 H Blood Pressure 110/46 L Pulse Oximetry 92 Oxygen Delivery Fraction of Inspired Oxygen 11/25/23 10:31 11/25/23 11:00 11/25/23 11:17 Temperature 36.6 C Pulse Rate 67 66 66 Respiratory Rate 21 H 20 Blood Pressure 112/48 L Pulse Oximetry 95 94 Oxygen Delivery Mechanical Ventilation Fraction of Inspired Oxygen 70 11/25/23 11:40 11/25/23 11:41 11/25/23 11:43 Temperature 36.6 C Pulse Rate 67 67 Respiratory Rate 20 Blood Pressure 116/48 L 114/47 L Pulse Oximetry 93 Oxygen Delivery Fraction of Inspired Oxygen 70 11/25/23 11:45 11/25/23 12:00 11/25/23 12:25 Temperature Pulse Rate 66 66 65 Respiratory Rate 20 20 Blood Pressure Pulse Oximetry 94 Oxygen Delivery Mechanical Ventilation Fraction of Inspired Oxygen 70 11/25/23 12:26 11/25/23 13:00 11/25/23 13:25 Temperature 36.5 C Pulse Rate 65 66 66 Respiratory Rate 20 20 24 H Blood Pressure 114/46 L Pulse Oximetry 93 Oxygen Delivery Fraction of Inspired Oxygen 11/25/23 13:29 11/25/23 13:45 11/25/23 14:00 Temperature Pulse Rate 66 66 66 Respiratory Rate 20 Blood Pressure Pulse Oximetry 93 Oxygen Delivery Mechanical Ventilation Fraction of Inspired Oxygen 70 11/25/23 12:00 11/25/23 12:02 11/25/23 12:15 Temperature 36.6 C 36.6 C 36.6 C Pulse Rate 66 66 65 Respiratory Rate Blood Pressure 106/48 L Pulse Oximetry 94 94 94 Oxygen Delivery Fraction of Inspired Oxygen 11/25/23 12:30 11/25/23 12:45 11/25/23 13:00 Temperature 36.5 C 36.5 C 36.5 C Pulse Rate 65 65 65 Respiratory Rate Blood Pressure Pulse Oximetry 94 94 94 Oxygen Delivery Fraction of Inspired Oxygen 11/25/23 13:02 11/25/23 13:15 11/25/23 13:30 Temperature 36.5 C 36.5 C 36.5 C Pulse Rate 65 65 66 Respiratory Rate Blood Pressure 112/52 L Pulse Oximetry 93 93 93 Oxygen Del
[2023-11-26] MEDS: PROPOFOL IV EMULSION 100 ML 6.83 MG IV CONT (10:08)
[2023-11-26 10:27] LABS: Glucose Point of Care 213 mg/dl (65-105)
[2023-11-26] MEDS: INSULIN GLARGINE (*BKC) 100 UNITS/ML 40 UNITS SUB-Q ×2 (10:29→21:10)
--- NOTE | 2023-11-26 10:35 | WPDPROCEDUR ---
Procedures Central Line Placement Right IJ: Central Line Date: 11/26/23 Central Line Time: 09:30 Discussed w/ the patient/family/POA,the placement of a central venous catheter, including its clinical necessity/indication & associated potential risks, benifits and alternatives.: Yes The patient/family/POA understand(s) and acknowledge(s) the need to proceed with central venous catheter insertion as an important element of the patient's clinical management.: Yes Consent: I have discussed with the patient and/or surrogate, the non-emergent placement of a temporary hemodialysis venous catheter, including its clinical necessity/indication and associated potential risks and complications. The patient and/or surrogate understand(s) and acknowledge(s) the need to proceed with temporary hemo dialysis venous catheter insertion as an important element of the patient's clinical management. Time Out Performed: Yes Patient Position: supine Patient placed on monitor/pulse ox: Yes Provider Prep: mask, sterile gown, sterile gloves, Max. sterile barrier precautions, cap and hand hygiene with conventional soap/water or alcohol based hand rub Central line prep: Povidone-Iodine 1% Sterile US Technique with sterile gel/sterile probe covers: Yes Central line lumen inserted: triple Length (cm): 16 Depth of Insertion (cm): 16 Post Procedure: sutured in place, good blood return, all ports aspirated, flushed, capped, transparent dressing and aseptic technique maintained throughout procedure Post procedure x-ray: tip of catheter in good position and no pneumothorax seen Patient tolerated procedure: well Complications: none Arterial Line Size (Gauge): 20
--- NOTE | 2023-11-26 10:36 | WPDINTPN ---
Progress Note: A&P Assessment and Plan (1) Acute hypoxic respiratory failure: Code(s): J96.01 - Acute respiratory failure with hypoxia Status: Acute Assessment and Plan: Acute hypoxic respiratory failure likely secondary to combination of pneumonia and pulmonary edema Hold further IV fluids Treatment of pneumonia as below ABG and chest x-ray reviewed. Advance ET tube by 2 cm Currently on FiO2 to 70% and peep is at 10. Continue to wean FiO2 Plan to start hemodialysis to remove fluid today Continue bronchodilators (2) Sepsis: Code(s): A41.9 - Sepsis, unspecified organism Status: Acute Assessment and Plan: CT scan done on presentation showed patchy airspace opacities throughout the lungs consistent with pneumonia or pulmonary edema Blood sputum and urine cultures have been sent and are pending Continue empiric cefepime and azithromycin Nasal MRSA was negative hence vancomycin discontinued in light of worsening renal function (3) Shock: Code(s): R57.9 - Shock, unspecified Status: Acute Assessment and Plan: Multifactorial shock secondary to sepsis and cardiogenic Off levophed and vasopressin Off hydrocortisone Hold further IV fluids due to volume overload (4) DKA (diabetic ketoacidosis): Qualifiers: Diabetes mellitus type: type 1 Diabetes mellitus complication detail: without coma Qualified Code(s): E10.10 - Type 1 diabetes mellitus with ketoacidosis without coma Code(s): E11.10 - Type 2 diabetes mellitus with ketoacidosis without coma Status: Acute Assessment and Plan: Patient on presentation was in DKA and was started on IV insulin infusion. Her anion gap has closed and she has been transition to subcutaneous insulin. Blood glucose was elevated yesterday evening and patient was restarted on insulin infusion. Will increase Lantus and try to wean off her insulin drip (5) Acute kidney injury superimposed on CKD: Code(s): N17.9 - Acute kidney failure, unspecified; N18.9 - Chronic kidney disease, unspecified Status: Acute Assessment and Plan: Patient has history of chronic kidney disease likely secondary to diabetes and hypertension and now presented with much elevated creatinine which is likely multifactorial and secondary to sepsis, hypoxia and cardiac arrest. She also received IV contrast for her CTA although that is probably not responsible for her JOHN PAUL She has received fluids and now appears to be volume overloaded hence further fluids will be held Potassium is normalized with treatment and will be monitored CT scan of the abdomen did not show any hydronephrosis or stone Renal ultrasound: IMPRESSION: No evidence of hydronephrosis of either kidney Left renal scarring and volume loss CK level was normal Nephrology is following Her creatinine has further increased to 5.6 and urine output remains poor. She did not respond to Lasix I discussed with nephrology and also with patient's . Will plan to start hemodialysis. I discussed pros and cons yesterday evening with patient's in detail about dialysis and dialysis catheter placement. He verbalized understanding and agreed to proceed. Hemodialysis catheter placed 11/26. Dialysis scheduling per Nephrology Continue to monitor urine output electrolytes and creatinine (6) Hyperkalemia: Code(s): E87.5 - Hyperkalemia Status: Acute Assessment and Plan: Patient has been having mild hyperkalemia as an outpatient and now presented with K which e w went up to 6.7 was treated with medications. Potassium level has now normalized. Monitor and treat accordingly (7) Cardiac arrest: Code(s): I46.9 - Cardiac arrest, cause unspecified Status: Acute Assessment and Plan: Patient had cardiac arrest with unknown clear etiology. Possible etiologies are respiratory failure from pneumonia and congestive heart failure and possibility of hyperkalemia leading to
--- NOTE | 2023-11-26 11:06 | PCCDE ---
11/26/23: 10:00 am 11/26/23: 10:00 am Pt admitted 11/23/23; [facility] Received notification secondary to insulin pump worn at home. Pt intubated, on IV Insulin, Human R, being titrated based on glucose readings. Briefly spoke with RN (Maryann) If insulin pump still connected needs to be removed due to should only be worn x 3 days. If Dexcom still connected, it would be beneficial to identify when inserted (?), that is a 10 day wear.
--- NOTE | 2023-11-26 11:20 | PCDIET ---
Tube feeding recommendations: Vital High Protein at 65 ml/hr (1430 kcals/125 gms protein/1195 ml water. Flush 30 ml q 4 hours. Tube feeding with Propofol providing 1618 kcals/125 kcals/1195 ml water. Meeting 98% kcal needs ~70% PJ and 100% protein needs at 1.0-1.2 kcal/kg. Will continue to monitor.
[2023-11-26 11:40] LABS: Glucose Point of Care 240 mg/dl (65-105)
[2023-11-26] MEDS: ALBUMIN HUMAN 25% 25 GM/100 ML 100 ML IVPB (12:23)
[2023-11-26 12:35] LABS: Glucose Point of Care 228 mg/dl (65-105)
--- NOTE | 2023-11-26 13:01 | P.PNNP_ITS ---
Progress Note: A&P Assessment and Plan (1) JOHN PAUL (acute kidney injury): Code(s): N17.9 - Acute kidney failure, unspecified Status: Acute Assessment and Plan: * ongoing deterioration noted * multifactorial etiology: * cardiac arrest * hemodynamic instability * sepsis/infection * hypoxia * contrast exposure (CTA of chest on admission) * pre-renal factors * diuretic therapy prior to admission * s/p aggressive IVF resuscitation * evaluation to date: * CT scan of abdomen without obstruction * renal ultrasound left renal scarring and volume loss * CPK normal * urine electrolytes prerenal * urine eosinophils negative * moderate proteinuria * HD today to help optimize volume status and provide clearance of uremic toxins * follow repeat labs and UOP for potential renal recovery (2) Stage 3b chronic kidney disease: Code(s): N18.32 - Chronic kidney disease, stage 3b Status: Chronic Assessment and Plan: * evidence of renal insufficiency/chronic kidney disease 2021 * creatinine seems to run around 1.3 - 1.7mg/dl * presumably due to hypertension, diabetes, and vascular disease (3) Hyperkalemia: Code(s): E87.5 - Hyperkalemia Status: Acute Assessment and Plan: * resolved * noted on admission and as an outpatient * s/p medical management with improvement * possible type IV RTA (common in diabetics)? * follow repeat K+ levels (4) Sepsis: Code(s): A41.9 - Sepsis, unspecified organism Status: Acute Assessment and Plan: * possibly due to pneumonia * CT scan on admission sugesstive of pneumonia and/or pulmonary edema * follow culture data * on empiric antibiotics * off vasopressor therapy (5) Acute hypoxic respiratory failure: Code(s): J96.01 - Acute respiratory failure with hypoxia Status: Acute Assessment and Plan: * felt to be secondary to combination of pneumonia and pulmonary edema in conjunction with cardiac arrest * IVFs on hold * antibiotics for pneumonia * continue ventilator support * weaning once more stable (6) Cardiac arrest: Code(s): I46.9 - Cardiac arrest, cause unspecified Status: Acute Assessment and Plan: * etiology not entirely clear: * pneumonia? * CHF? * hyperkalemia? * primary cardiac event? * trend of troponins (elevation could just be from cardiac arrest + CPR) * Echo results reviewed * Cardiology recommendations noted (7) Diabetes: Code(s): E11.9 - Type 2 diabetes mellitus without complications Status: Chronic Assessment and Plan: * follow accu-cheks * was on insulin gtt (noted DKA on admission) * transitioned to SQ insulin * glycemic control per de alcholizer/hospitalists Will continue to follow. Subjective Date/time seen: 11/26/23 13:01 Interval history: Follow-up for acute kidney injury/acute renal failure on chronic kidney disease. Poor response to trial of IV diuretics and is almost anuric in conjunction with worsening creatinine/renal function; remains intubated/sedated and on mechanical ventilation; hemodynamically stable off vasopressor therapy; issues with hyperglycemia overnight requiring restarting insulin gtt; no other issues/events overnight or earlier this AM; s/p temporary HD catheter placement earlier today and tolerating dialysis at the time of my visit (seen on HD at 12:50PM). Exam Narrative: General: large WD/WN female intu
--- NOTE | 2023-11-26 13:01 | PM.PNNEP ---
Progress Note: A&P Assessment and Plan (1) JOHN PAUL (acute kidney injury): Code(s): N17.9 - Acute kidney failure, unspecified Status: Acute Assessment and Plan: ongoing deterioration noted multifactorial etiology: cardiac arrest hemodynamic instability sepsis/infection hypoxia contrast exposure (CTA of chest on admission) pre-renal factors diuretic therapy prior to admission s/p aggressive IVF resuscitation evaluation to date: CT scan of abdomen without obstruction renal ultrasound left renal scarring and volume loss CPK normal urine electrolytes prerenal urine eosinophils negative moderate proteinuria HD today to help optimize volume status and provide clearance of uremic toxins follow repeat labs and UOP for potential renal recovery (2) Stage 3b chronic kidney disease: Code(s): N18.32 - Chronic kidney disease, stage 3b Status: Chronic Assessment and Plan: evidence of renal insufficiency/chronic kidney disease 2021 creatinine seems to run around 1.3 - 1.7mg/dl presumably due to hypertension, diabetes, and vascular disease (3) Hyperkalemia: Code(s): E87.5 - Hyperkalemia Status: Acute Assessment and Plan: resolved noted on admission and as an outpatient s/p medical management with improvement possible type IV RTA (common in diabetics)? follow repeat K+ levels (4) Sepsis: Code(s): A41.9 - Sepsis, unspecified organism Status: Acute Assessment and Plan: possibly due to pneumonia CT scan on admission sugesstive of pneumonia and/or pulmonary edema follow culture data on empiric antibiotics off vasopressor therapy (5) Acute hypoxic respiratory failure: Code(s): J96.01 - Acute respiratory failure with hypoxia Status: Acute Assessment and Plan: felt to be secondary to combination of pneumonia and pulmonary edema in conjunction with cardiac arrest IVFs on hold antibiotics for pneumonia continue ventilator support weaning once more stable (6) Cardiac arrest: Code(s): I46.9 - Cardiac arrest, cause unspecified Status: Acute Assessment and Plan: etiology not entirely clear: pneumonia? CHF? hyperkalemia? primary cardiac event? trend of troponins (elevation could just be from cardiac arrest + CPR) Echo results reviewed Cardiology recommendations noted (7) Diabetes: Code(s): E11.9 - Type 2 diabetes mellitus without complications Status: Chronic Assessment and Plan: follow accu-cheks was on insulin gtt (noted DKA on admission) transitioned to SQ insulin glycemic control per aboriginal community council member/hospitalists Will continue to follow. Subjective Date/time seen: 11/26/23 13:01 Interval history: Follow-up for acute kidney injury/acute renal failure on chronic kidney disease. Poor response to trial of IV diuretics and is almost anuric in conjunction with worsening creatinine/renal function; remains intubated/sedated and on mechanical ventilation; hemodynamically stable off vasopressor therapy; issues with hyperglycemia overnight requiring restarting insulin gtt; no other issues/events overnight or earlier this AM; s/p temporary HD catheter placement earlier today and tolerating dialysis at the time of my visit (seen on HD at 12:50PM). Exam Narrative: General: large WD/WN female intubated/sedated on mechanical ventilation Heart: normal S1 and S2; no rub Lungs: coarse breath sounds; decreased at bases Abdomen: soft, nontender, nondistended, positive bowel sounds Extremities: no cyanosis or clubbing; 1+ edema Skin: warm and intact Objective Data Vital Signs Vital Signs: Vital Signs Temp Pulse Resp BP Pulse Ox O2 Del Method FiO2 11/26/23 12:45 69 140/60 11/26/23 12:15 70 11/26/23 12:15 70 147/64 H 11/26/23 11:51 97.6 F 69 20 134/60 91 11/26/23 12:00 69 11/26
[2023-11-26] MEDS: EPOETIN ALFA-EPBX 10,000 UNITS/ML VIAL 10000 UNITS IV PUSH (14:08)
[2023-11-26] MEDS: HEPARIN SODIUM 1,000 UNITS/ML VIAL 4000 UNITS IV PUSH (15:26)
[2023-11-26 16:12] LABS: Glucose Point of Care 298 mg/dl (65-105)
[2023-11-26] MEDS: INSULIN ASPART (*BKC) 100 UNITS/ML SUB-Q ×2 (16:43→21:09)
[2023-11-26] MEDS: CEFEPIME 2 GM/NS 50 ML 2 GM/50 ML BAG IVPB (16:43)
[2023-11-26] MEDS: AZITHROMYCIN 500 MG/NS 250 ML 500 MG/250 ML BAG 250 MG IVPB (17:43)
[2023-11-26] MEDS: PROPOFOL IV EMULSION 100 ML 10.24 MG IV CONT (18:32)
[2023-11-26 21:20] LABS: Glucose Point of Care 319 mg/dl (65-105)
[2023-11-27] VITALS (50 sets, daily range): BP systolic 115–149; BP diastolic 55–66; PULSE 18–75; RESP 18–22; TEMP 36.3–38; O2SAT 93–100
[2023-11-27] MEDS: INSULIN ASPART (*BKC) 100 UNITS/ML SUB-Q ×4 (00:15→20:06)
[2023-11-27 00:22] LABS: Glucose Point of Care 311 mg/dl (65-105)
[2023-11-27] MEDS: FENTANYL 2,500MCG/NS250ML(*CRX 2,500 MCG/250 ML BAG 7.5 MCG IV CONT (01:56)
[2023-11-27] MEDS: IPRATROPIUM BR 0.02% INH SOLN 0.5 MG/2.5 ML VIAL INHALATION ×4 (02:19→20:02)
[2023-11-27] MEDS: ALBUTEROL SULFATE NEB 2.5 MG/3 ML INH 5 MG INHALATION ×4 (02:19→20:02)
[2023-11-27] MEDS: PROPOFOL IV EMULSION 100 ML 10.24 MG IV CONT ×2 (03:59→13:19)
[2023-11-27] MEDS: CENTRAL LINE FLUSH 10 ML IV PUSH ×3 (05:10→20:07)
[2023-11-27 05:26] LABS: Glucose Point of Care 252 mg/dl (65-105)
[2023-11-27 05:32] LABS: Alveolar/Arterial O2 Gradient 473.4 mmHg; Carboxyhemoglobin 1.1 % THb (0-2.0); Fractional Inspired Oxygen 80 %; HCO3 ABG 24.5 mEq/l (22.0-26.0); Methemoglobin ABG 0.3 %THb (0-1.5); Oxygen Content ABG 18.1 %vol (16.0-22.0); Oxygen Saturation ABG 94.2 % (95.0-100.0); Oxyhemoglobin 91.2 % THb (90.0-100.0); PCO2 ABG 32.1 mmHg (35.0-45.0); PO2 ABG 63.3 mmHg (80.0-100.0); PO2 FiO2 Ratio Arterial Blood 0.79 %; Reduced Hemoglobin 7.4 %THb (0-5.0); Total Hemoglobin 14.1 g/dL (12.0-18.0)
[2023-11-27 05:33] LABS: Device VENTILATOR; Modified Allen's Test Pass; Site Drawn RIGHT RADIAL
[2023-11-27 05:34] LABS: Arterial Blood Gas Tidal Volume 400 ml; Arterial Blood Gas Vent Mode CMV; Arterial Blood Gas Ventilator rate 20 /MIN
[2023-11-27 05:56] LABS: Alkaline Phosphatase 213 U/L (38-126); Anion Gap 12 mmol/L (8-16); Aspartate Amino Transferase 363 U/L (14-36); Bilirubin,Total 0.8 mg/dL (0.2-1.3); Blood Urea Nitrogen 86 mg/dL (7-17); Calcium 8.6 mg/dL (8.4-10.2); Carbon Dioxide 26 mmol/L (22-30); Chloride 99 mmol/L (98-107); Creatine Kinase 81 U/L (30-135); Estimated CRCL calculation 20 ml/min; Estimated Glomerular Filt Rate 12; Glucose 243 mg/dL (65-110); Magnesium 2.3 mg/dL (1.6-2.3); Phosphorus 4.3 mg/dL (2.5-4.5); Sodium 137 mmol/L (137-145)
[2023-11-27 06:07] LABS: Hematocrit 29.3 % (37.0-47.0); Hemoglobin 9.2 g/dL (12.0-15.0); Mean Corpuscular HGB Conc 31.4 g/dl (32-36); Mean Corpuscular Hemoglobin 28.7 pg (26-34); Mean Corpuscular Volume 91.3 fl (80-100); Mean Platelet Volume 10.8 fl (7.4-10.4); Platelet Count Result 273 k/mm3 (150-375); Red Blood Count 3.21 M/mm3 (4.2-5.4); Red Cell Distribution Width 14.9 % (11.5-14.5); White Blood Count 29.8 K/mm3 (4.5-10.0)
[2023-11-27 06:17] LABS: Alanine Aminotransferase 1768 U/L (6-35)
[2023-11-27] MEDS: ASPIRIN 325 MG TABLET FEED TUBE (08:04)
[2023-11-27] MEDS: PANTOPRAZOLE SODIUM IV 40 MG VIAL IV PUSH ×2 (08:04→20:07)
[2023-11-27] MEDS: ENOXAPARIN 30 MG/0.3 ML SYRINGE SUB-Q (08:05)
[2023-11-27] MEDS: MINERAL OIL/WHITE PETROLATUM OINTMENT 1 APPLIC EACH EYE ×2 (08:06→20:07)
[2023-11-27 08:27] LABS: Arterial Blood Gas PEEP 10 cmH2O
[2023-11-27] MEDS: INSULIN GLARGINE (*BKC) 100 UNITS/ML 50 UNITS SUB-Q ×2 (08:37→20:06)
--- NOTE | 2023-11-27 09:22 | WPDINTPN ---
Progress Note: A&P Assessment and Plan (1) Acute hypoxic respiratory failure: Code(s): J96.01 - Acute respiratory failure with hypoxia Status: Acute Assessment and Plan: Acute hypoxic respiratory failure likely secondary to combination of pneumonia and pulmonary edema Hold further IV fluids Treatment of pneumonia as below -ABG and chest x-ray reviewed. Decrease respiratory rate to 18 -currently on 80% FiO2 and peep of 10. Wean FiO2 to maintain O2 sats greater than 92% -started dialysis on 11/26 Will get patient dialyzed again today Continue bronchodilators Sedated fentanyl and propofol infusions, will maintain RASS of 0 to -2. Daily sedation vacation for SAT and SBT (2) Sepsis: Code(s): A41.9 - Sepsis, unspecified organism Status: Acute Assessment and Plan: CT scan done on presentation showed patchy airspace opacities throughout the lungs consistent with pneumonia or pulmonary edema 11/23: Blood, sputum and urine cultures are negative -Continue empiric cefepime and azithromycin Nasal MRSA was negative hence vancomycin discontinued in light of worsening renal function (3) Shock: Code(s): R57.9 - Shock, unspecified Status: Acute Assessment and Plan: Multifactorial shock secondary to sepsis and cardiogenic Off levophed and vasopressin Off hydrocortisone Hold further IV fluids due to volume overload (4) DKA (diabetic ketoacidosis): Qualifiers: Diabetes mellitus type: type 1 Diabetes mellitus complication detail: without coma Qualified Code(s): E10.10 - Type 1 diabetes mellitus with ketoacidosis without coma Code(s): E11.10 - Type 2 diabetes mellitus with ketoacidosis without coma Status: Acute Assessment and Plan: Patient on presentation was in DKA and was started on IV insulin infusion. Her anion gap has closed and she has been transition to subcutaneous insulin. Blood glucose was elevated yesterday evening and patient was restarted on insulin infusion. 11/27: Off insulin infusion -increase Lantus to 50 units q.12h -continue Accu-Cheks and sliding scale insulin (5) Acute kidney injury superimposed on CKD: Code(s): N17.9 - Acute kidney failure, unspecified; N18.9 - Chronic kidney disease, unspecified Status: Acute Assessment and Plan: Patient has history of chronic kidney disease likely secondary to diabetes and hypertension and now presented with much elevated creatinine which is likely multifactorial and secondary to sepsis, hypoxia and cardiac arrest. She also received IV contrast for her CTA although that is probably not responsible for her JOHN PAUL -She has received fluids and now appears to be volume overloaded hence further fluids will be held -Potassium has normalized with treatment and will be monitored -CT scan of the abdomen did not show any hydronephrosis or stone -11/25 Renal ultrasound: IMPRESSION: No evidence of hydronephrosis of either kidney Left renal scarring and volume loss CK level was normal Nephrology is following -Her creatinine has further increased to 5.6 and urine output remains poor. She did not respond to Lasix -11/26: Dialysis catheter was placed and patient started on dialysis 11/27: Patient will get dialyzed again today Continue to monitor urine output electrolytes and creatinine (6) Hyperkalemia: Code(s): E87.5 - Hyperkalemia Status: Acute Assessment and Plan: Resolved Patient has been having mild hyperkalemia as an outpatient and now presented with K which e w went up to 6.7 was treated with medications. Potassium level has now normalized. Monitor and treat accordingly (7) Cardiac arrest: Code(s): I46.9 - Cardiac arrest, cause unspecified Status: Acute Assessment and Plan: Patient had cardiac arrest with unknown clear etiology. Possible etiologies are respiratory failure from pneumonia and congestive heart failure and possibility of hyperkalemia leadi
[2023-11-27 10:30] LABS: Glucose Point of Care 193 mg/dl (65-105)
--- NOTE | 2023-11-27 10:47 | PCNFU ---
Nutrition Follow-Up Complete: Inadequate Oral Intake as related to mechanical ventilation as evidenced by NPO. goal: Meet estimated nutritional needs. Patient is meeting current goal. We will continue goal. Pt current nutrition is Vital High Protein at 65 ml/hr. Last recorded weight is 115.5 kg, down from 118.1 kg. Bowel Motility:No BM reported. Labs Reviewed: Glu 243, GFR 12, BUN 86, GFR 12 Meds Noted: Protonix, Lantus,Propofol 15 teza=[id number] kcals Skin: WNL Additional Notes: Patient remains on mechanical vent and tube feedings of Vital High Protein at 65 ml/hr. Tolerating per nursing, small residual this morning. Dialysis 11/26 and 11/27. Total Nutrition: 1700 kcals/125 gms protein/1195 ml water. Flush 30 ml q 4 hours. Will monitor weight, labs, skin, meds, tube feeding tolerance every Sunday and Sunday.
--- NOTE | 2023-11-27 10:51 | PM.PNNEP ---
Progress Note: A&P Assessment and Plan (1) JOHN PAUL (acute kidney injury): Code(s): N17.9 - Acute kidney failure, unspecified Status: Acute Assessment and Plan: multifactorial etiology: cardiac arrest hemodynamic instability sepsis/infection hypoxia contrast exposure (CTA of chest on admission) pre-renal factors diuretic therapy prior to admission s/p aggressive IVF resuscitation evaluation to date: CT scan of abdomen without obstruction renal ultrasound left renal scarring and volume loss CPK normal urine electrolytes prerenal urine eosinophils negative moderate proteinuria HD yesterday and today to help optimize volume status and provide clearance of uremic toxins follow repeat labs and UOP for potential renal recovery (2) Stage 3b chronic kidney disease: Code(s): N18.32 - Chronic kidney disease, stage 3b Status: Chronic Assessment and Plan: evidence of renal insufficiency/chronic kidney disease 2021 creatinine seems to run around 1.3 - 1.7mg/dl presumably due to hypertension, diabetes, and vascular disease (3) Hyperkalemia: Code(s): E87.5 - Hyperkalemia Status: Acute Assessment and Plan: resolved noted on admission and as an outpatient s/p medical management with improvement possible type IV RTA (common in diabetics)? follow repeat K+ levels (4) Sepsis: Code(s): A41.9 - Sepsis, unspecified organism Status: Acute Assessment and Plan: possibly due to pneumonia CT scan on admission sugesstive of pneumonia and/or pulmonary edema follow culture data on empiric antibiotics off vasopressor therapy (5) Acute hypoxic respiratory failure: Code(s): J96.01 - Acute respiratory failure with hypoxia Status: Acute Assessment and Plan: felt to be secondary to combination of pneumonia and pulmonary edema in conjunction with cardiac arrest IVFs on hold antibiotics for pneumonia continue ventilator support weaning once more stable (6) Cardiac arrest: Code(s): I46.9 - Cardiac arrest, cause unspecified Status: Acute Assessment and Plan: etiology not entirely clear: pneumonia? CHF? hyperkalemia? primary cardiac event? trend of troponins (elevation could just be from cardiac arrest + CPR) Echo results reviewed Cardiology recommendations noted (7) Diabetes: Code(s): E11.9 - Type 2 diabetes mellitus without complications Status: Chronic Assessment and Plan: follow accu-cheks was on insulin gtt (noted DKA on admission) transitioned to SQ insulin glycemic control per multimedia teacher/hospitalists Will continue to follow. Subjective Date/time seen: 11/27/23 10:51 Interval history: Follow-up for acute kidney injury/acute renal failure on chronic kidney disease. Tolerated dialysis treatment yesterday and tolerating dialysis treatment at the time of my visit (seen on HD at 10:40 AM); remains hemodynamically stable and afebrile; remains intubated/sedated and on mechanical ventilation. Exam Narrative: General: large WD/WN female intubated/sedated on mechanical ventilation Heart: normal S1 and S2; no rub Lungs: coarse breath sounds; decreased at bases Abdomen: soft, nontender, nondistended, positive bowel sounds Extremities: no cyanosis or clubbing; 1+ edema Skin: no rash Objective Data Vital Signs Vital Signs: Vital Signs Temp Pulse Resp BP Pulse Ox O2 Del Method FiO2 11/27/23 10:32 69 96 Mechanical Ventilation 80 11/27/23 10:30 69 123/59 L 11/27/23 10:15 70 127/57 L 11/27/23 10:00 98.2 F 70 18 134/57 L 96 11/27/23 10:00 70 11/27/23 09:30 75 139/55 L 11/27/23 12:30 63 115/62 11/27/23 12:15 63 118/58 L 11/27/23 12:00 65 122/57 L 11/27/23 11:45 65 117/58 L 11/27/23 11:30 65 117/63 11/27/23 11:15 66 123/58
--- NOTE | 2023-11-27 10:51 | P.PNNP_ITS ---
Progress Note: A&P Assessment and Plan (1) JOHN PAUL (acute kidney injury): Code(s): N17.9 - Acute kidney failure, unspecified Status: Acute Assessment and Plan: * multifactorial etiology: * cardiac arrest * hemodynamic instability * sepsis/infection * hypoxia * contrast exposure (CTA of chest on admission) * pre-renal factors * diuretic therapy prior to admission * s/p aggressive IVF resuscitation * evaluation to date: * CT scan of abdomen without obstruction * renal ultrasound left renal scarring and volume loss * CPK normal * urine electrolytes prerenal * urine eosinophils negative * moderate proteinuria * HD yesterday and today to help optimize volume status and provide clearance of uremic toxins * follow repeat labs and UOP for potential renal recovery (2) Stage 3b chronic kidney disease: Code(s): N18.32 - Chronic kidney disease, stage 3b Status: Chronic Assessment and Plan: * evidence of renal insufficiency/chronic kidney disease 2021 * creatinine seems to run around 1.3 - 1.7mg/dl * presumably due to hypertension, diabetes, and vascular disease (3) Hyperkalemia: Code(s): E87.5 - Hyperkalemia Status: Acute Assessment and Plan: * resolved * noted on admission and as an outpatient * s/p medical management with improvement * possible type IV RTA (common in diabetics)? * follow repeat K+ levels (4) Sepsis: Code(s): A41.9 - Sepsis, unspecified organism Status: Acute Assessment and Plan: * possibly due to pneumonia * CT scan on admission sugesstive of pneumonia and/or pulmonary edema * follow culture data * on empiric antibiotics * off vasopressor therapy (5) Acute hypoxic respiratory failure: Code(s): J96.01 - Acute respiratory failure with hypoxia Status: Acute Assessment and Plan: * felt to be secondary to combination of pneumonia and pulmonary edema in conjunction with cardiac arrest * IVFs on hold * antibiotics for pneumonia * continue ventilator support * weaning once more stable (6) Cardiac arrest: Code(s): I46.9 - Cardiac arrest, cause unspecified Status: Acute Assessment and Plan: * etiology not entirely clear: * pneumonia? * CHF? * hyperkalemia? * primary cardiac event? * trend of troponins (elevation could just be from cardiac arrest + CPR) * Echo results reviewed * Cardiology recommendations noted (7) Diabetes: Code(s): E11.9 - Type 2 diabetes mellitus without complications Status: Chronic Assessment and Plan: * follow accu-cheks * was on insulin gtt (noted DKA on admission) * transitioned to SQ insulin * glycemic control per gaming manager/hospitalists Will continue to follow. Subjective Date/time seen: 11/27/23 10:51 Interval history: Follow-up for acute kidney injury/acute renal failure on chronic kidney disease. Tolerated dialysis treatment yesterday and tolerating dialysis treatment at the time of my visit (seen on HD at 10:40 AM); remains hemodynamically stable and afebrile; remains intubated/sedated and on mechanical ventilation. Exam Narrative: General: large WD/WN female intubated/sedated on mechanical ventilation Heart: normal S1 and S2; no rub Lungs: coarse breath sounds; decreased at bases Abdomen: soft, nontender, nondistended, positive bowel sounds Extremities: no cyanosis or clubbing; 1+ edema Skin: no r
[2023-11-27] MEDS: EPOETIN ALFA-EPBX 10,000 UNITS/ML VIAL 10000 UNITS IV PUSH (11:05)
[2023-11-27 11:58] LABS: Glucose Point of Care 95 mg/dl (65-105)
[2023-11-27] MEDS: HEPARIN SODIUM 1,000 UNITS/ML VIAL 4000 UNITS IV PUSH (13:06)
--- NOTE | 2023-11-27 14:05 | PM.IMPN ---
Progress Note: A&P Assessment and Plan (1) Acute hypoxic respiratory failure: Code(s): J96.01 - Acute respiratory failure with hypoxia Status: Acute Assessment and Plan: Acute hypoxic respiratory failure likely secondary to combination of pneumonia and pulmonary edema continue iv levophed iv cefepime and azithromycin iv (2) Sepsis: Code(s): A41.9 - Sepsis, unspecified organism Status: Acute Assessment and Plan: CT scan done on presentation showed patchy airspace opacities throughout the lungs consistent with pneumonia or pulmonary edema Blood sputum and urine cultures have been sent and are pending Continue empiric cefepime and azithromycin (3) Shock: Code(s): R57.9 - Shock, unspecified Status: Acute Assessment and Plan: Multifactorial shock secondary to sepsis and cardiogenic on levophed (4) DKA (diabetic ketoacidosis): Qualifiers: Diabetes mellitus type: type 1 Diabetes mellitus complication detail: without coma Qualified Code(s): E10.10 - Type 1 diabetes mellitus with ketoacidosis without coma Code(s): E11.10 - Type 2 diabetes mellitus with ketoacidosis without coma Status: Acute Assessment and Plan: Patient on presentation was in DKA and was started on IV insulin infusion. Her anion gap has closed and she has been transition to subcutaneous insulin. (5) Acute kidney injury superimposed on CKD: Code(s): N17.9 - Acute kidney failure, unspecified; N18.9 - Chronic kidney disease, unspecified Status: Acute Assessment and Plan: Patient has history of chronic kidney disease likely secondary to diabetes and hypertension and now presented with much elevated creatinine which is likely multifactorial and secondary to sepsis, hypoxia and cardiac arrest. She also received IV contrast for her CTA although that is probably not responsible for her JOHN PAUL She has received fluids and now appears to be volume overloaded hence further fluids will be held Potassium is normalized with treatment and will be monitored CT scan of the abdomen did not show any hydronephrosis or stone CK level was normal Nephrology consult the and renal ultrasound is ordered and pending Her creatinine is worsening poor uo in catheter pt started on emergent hemodialysis day 2 (6) Hyperkalemia: Code(s): E87.5 - Hyperkalemia Status: Acute Assessment and Plan: Patient has been having mild hyperkalemia as an outpatient and now presented with K which e w went up to 6.7 was treated with medications. Potassium level has now normalized. Monitor and treat accordingly (7) Cardiac arrest: Code(s): I46.9 - Cardiac arrest, cause unspecified Status: Acute Assessment and Plan: Patient had cardiac arrest with unknown clear etiology. Possible etiologies are respiratory failure from pneumonia and congestive heart failure and possibility of hyperkalemia leading to PEA She received empiric tPA in the ER for suspected PE but CT scan was negative for any pulmonary embolism Her hyperkalemia has been treated and potassium level has normalized EKG shows nonspecific ST-T changes and there is mild elevation in troponin which could be secondary to CPR and cardiac arrest. Cardiology on board (8) Elevated troponin: Code(s): R79.89 - Other specified abnormal findings of blood chemistry Status: Acute Assessment and Plan: See above (9) Multifocal pneumonia: Code(s): J18.9 - Pneumonia, unspecified organism Status: Acute Assessment and Plan: See above (10) Pulmonary edema: Code(s): J81.1 - Chronic pulmonary edema Status: Acute (11) Elevated liver enzymes: Code(s): R74.8 - Abnormal levels of other serum enzymes Status: Acute Assessment and Plan: Elevated AST and ALT likely secondary to shock liver and possible hepatic congestion Monitor levels need to be watched (12) Coagulopathy:
[2023-11-27] MEDS: CEFEPIME 2 GM/NS 50 ML 2 GM/50 ML BAG IVPB (15:13)
[2023-11-27] MEDS: AZITHROMYCIN 500 MG/NS 250 ML 500 MG/250 ML BAG 250 MG IVPB (17:13)
[2023-11-27 17:22] LABS: Glucose Point of Care 201 mg/dl (65-105)
[2023-11-27 20:02] LABS: Osmolality, Urine 345 mOsm/kg (50-1200)
[2023-11-27 20:37] LABS: Glucose Point of Care 330 mg/dl (65-105)
--- NOTE | 2023-11-27 21:15 | PC.NURSE ---
Upon physical assessment, it was noted that pt's left pupil was larger than right. Pupils non-reactive. Pt follows commands and nods head appropriately. Dr. Ordonez notified and at pt's bedside for further evaluation. Head CT ordered.
--- NOTE | 2023-11-27 21:48 | P.PNCROSS_ITS ---
Event Note Event Note Event Note: Nursing staff was doing shift assessment 100 patient and noticed that the patie nt's left eye was slightly dilated. Previously the patient is I examined demonstrated equal but slightly in usually dilated pupils that were extremely sluggishly reactive. Now the patient's left eye is slightly dilated but both are still sluggishly reactive. The patient's is at bedside and reports that the patient has had numerous eye surgeries including bilateral cataract extraction a couple of years ago. It sounds as if the patient likely has diabetic retinopathy. He reports that she has significant loss of peripheral vision and has only central vision remaining. The patient is still appropriately responsive and follows all commands immediately. She was actually anticipating portions of the neurologic exam and was completing them before I could finish asking the question. She remains ventilated and on some sedation. Overall heard body wall edema has improved compared to my initial evaluation on the patient's admission to the hospital. Her ventilator is settings remained stable. Patient was sent down for a stat CT of the brain without contrast. I personally reviewed the imaging in did not demonstrate any acute process. Radiologic interpretation confirms this. The patient's remained at bedside and was updated as to the results. The patient is receiving nebulizer treatments but her nebulizer treatments are received in line with the ventilator and her not likely the cause the patient's unequal pupils. 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 Will continue to monitor. 30 minute spent in critical care activities. Due to a high probability of clinically significant, life threatening deterioration, the patient required my highest level of preparedness to intervene emergently and I personally spent this critical care time directly and personally managing the patient. This critical care time included obtaining a history; examining the patient; pulse oximetry; ordering and review of studies; arranging urgent treatment with development of a management plan; evaluation of patient's response to treatment; frequent reassessment; and discussions with other providers. It was exclusive of separately billable procedures and treating other patients and teaching time. Please see Assessment and Plan section and the rest of the note for further information on patient assessment and treatment.
[2023-11-28] VITALS (54 sets, daily range): BP systolic 133–169; BP diastolic 53–68; PULSE 71–83; RESP 18–19; TEMP 36.7–38.2; O2SAT 91–97
[2023-11-28] MEDS: PROPOFOL IV EMULSION 100 ML 10.24 MG IV CONT ×2 (00:06→18:46)
[2023-11-28] MEDS: INSULIN ASPART (*BKC) 100 UNITS/ML SUB-Q ×5 (00:11→20:22)
[2023-11-28 00:23] LABS: Glucose Point of Care 304 mg/dl (65-105)
[2023-11-28] MEDS: IPRATROPIUM BR 0.02% INH SOLN 0.5 MG/2.5 ML VIAL INHALATION ×4 (02:30→20:42)
[2023-11-28] MEDS: ALBUTEROL SULFATE NEB 2.5 MG/3 ML INH 5 MG INHALATION ×4 (02:30→20:41)
[2023-11-28 04:23] LABS: Glucose Point of Care 349 mg/dl (65-105)
[2023-11-28 05:48] LABS: Alveolar/Arterial O2 Gradient 322.4 mmHg; Base Excess ABG -0.4 mEq/l (+/-2.0); Carboxyhemoglobin 0.3 % THb (0-2.0); Fractional Inspired Oxygen 60 %; HCO3 ABG 23.8 mEq/l (22.0-26.0); Methemoglobin ABG 0.3 %THb (0-1.5); Oxygen Content ABG 12.9 %vol (16.0-22.0); Oxyhemoglobin 90.2 % THb (90.0-100.0); PCO2 ABG 37.5 mmHg (35.0-45.0); PO2 ABG 64.2 mmHg (80.0-100.0); PO2 FiO2 Ratio Arterial Blood 1.07 %; Reduced Hemoglobin 9.2 %THb (0-5.0); Total Hemoglobin 10.1 g/dL (12.0-18.0); pH ABG 7.421 (7.350-7.450)
[2023-11-28 05:49] LABS: Device VENTILATOR; Modified Allen's Test Pass; Site Drawn RIGHT RADIAL
[2023-11-28 05:50] LABS: Arterial Blood Gas PEEP 10 cmH2O; Arterial Blood Gas Tidal Volume 400 ml; Arterial Blood Gas Vent Mode CMV; Arterial Blood Gas Ventilator rate 18 /MIN
[2023-11-28] MEDS: CENTRAL LINE FLUSH 10 ML IV PUSH ×3 (05:50→20:25)
[2023-11-28 06:01] LABS: Hematocrit 30.7 % (37.0-47.0); Hemoglobin 9.1 g/dL (12.0-15.0); Mean Corpuscular HGB Conc 29.6 g/dl (32-36); Mean Corpuscular Hemoglobin 27.6 pg (26-34); Mean Platelet Volume 10.3 fl (7.4-10.4); Platelet Count Result 230 k/mm3 (150-375); Red Cell Distribution Width 14.7 % (11.5-14.5); White Blood Count 27.7 K/mm3 (4.5-10.0)
[2023-11-28 06:08] LABS: Potassium 4.2 mmol/L (3.4-5.0)
[2023-11-28 06:10] LABS: Albumin Level 2.9 g/dL (3.5-5.1); Alkaline Phosphatase 191 U/L (38-126); Anion Gap 7 mmol/L (8-16); Aspartate Amino Transferase 99 U/L (14-36); Blood Urea Nitrogen 54 mg/dL (7-17); Carbon Dioxide 27 mmol/L (22-30); Chloride 100 mmol/L (98-107); Creatine Kinase 365 U/L (30-135); Estimated CRCL calculation 33 ml/min; Estimated Glomerular Filt Rate 22; Glucose 341 mg/dL (65-110); Sodium 134 mmol/L (137-145)
[2023-11-28 06:19] LABS: Alanine Aminotransferase 1105 U/L (6-35)
[2023-11-28 07:43] LABS: Glucose Point of Care 331 mg/dl (65-105)
[2023-11-28] MEDS: ASPIRIN 325 MG TABLET FEED TUBE (08:32)
[2023-11-28] MEDS: ENOXAPARIN 30 MG/0.3 ML SYRINGE SUB-Q (08:33)
[2023-11-28] MEDS: INSULIN GLARGINE (*BKC) 100 UNITS/ML 65 UNITS SUB-Q ×2 (08:33→20:23)
[2023-11-28] MEDS: PANTOPRAZOLE SODIUM IV 40 MG VIAL IV PUSH ×2 (08:33→20:22)
[2023-11-28] MEDS: MINERAL OIL/WHITE PETROLATUM OINTMENT 1 APPLIC EACH EYE ×2 (08:34→20:25)
--- NOTE | 2023-11-28 09:24 | WPDINTPN ---
Progress Note: A&P Assessment and Plan (1) Acute hypoxic respiratory failure: Code(s): J96.01 - Acute respiratory failure with hypoxia Status: Acute Assessment and Plan: Acute hypoxic respiratory failure likely secondary to combination of pneumonia and pulmonary edema Hold further IV fluids Treatment of pneumonia as below -ABG and chest x-ray reviewed. Decrease respiratory rate to 18 -currently on 60% FiO2 and peep of 10. Wean FiO2 to maintain O2 sats greater than 92% -started dialysis on 11/26 -patient was dialyzed on 11/26, 11/27. Patient to get dialysis again today Continue bronchodilators Sedated fentanyl and propofol infusions, will maintain RASS of 0 to -2. Daily sedation vacation for SAT and SBT (2) Sepsis: Code(s): A41.9 - Sepsis, unspecified organism Status: Acute Assessment and Plan: CT scan done on presentation showed patchy airspace opacities throughout the lungs consistent with pneumonia or pulmonary edema 11/23: Blood, sputum and urine cultures are negative -Continue empiric cefepime, status post 5 days of azithromycin Nasal MRSA was negative hence vancomycin discontinued in light of worsening renal function (3) Shock: Code(s): R57.9 - Shock, unspecified Status: Acute Assessment and Plan: Multifactorial shock secondary to sepsis and cardiogenic Off levophed and vasopressin Off hydrocortisone Hold further IV fluids due to volume overload (4) DKA (diabetic ketoacidosis): Qualifiers: Diabetes mellitus type: type 1 Diabetes mellitus complication detail: without coma Qualified Code(s): E10.10 - Type 1 diabetes mellitus with ketoacidosis without coma Code(s): E11.10 - Type 2 diabetes mellitus with ketoacidosis without coma Status: Acute Assessment and Plan: Patient on presentation was in DKA and was started on IV insulin infusion. Her anion gap has closed and she has been transition to subcutaneous insulin. Blood glucose was elevated yesterday evening and patient was restarted on insulin infusion. 11/27: Off insulin infusion -increase Lantus to 65 units q.12h -continue Accu-Cheks and sliding scale insulin (5) Acute kidney injury superimposed on CKD: Code(s): N17.9 - Acute kidney failure, unspecified; N18.9 - Chronic kidney disease, unspecified Status: Acute Assessment and Plan: Patient has history of chronic kidney disease likely secondary to diabetes and hypertension and now presented with much elevated creatinine which is likely multifactorial and secondary to sepsis, hypoxia and cardiac arrest. She also received IV contrast for her CTA although that is probably not responsible for her JOHN PAUL -She has received fluids and now appears to be volume overloaded hence further fluids will be held -Potassium has normalized with treatment and will be monitored -CT scan of the abdomen did not show any hydronephrosis or stone -11/25 Renal ultrasound: IMPRESSION: No evidence of hydronephrosis of either kidney Left renal scarring and volume loss CK level was normal Nephrology is following -Her creatinine has further increased to 5.6 and urine output remains poor. She did not respond to Lasix -11/26: Dialysis catheter was placed and patient started on dialysis -patient got dialyzed on 11/26, 11/27 Continue to monitor urine output electrolytes and creatinine (6) Hyperkalemia: Code(s): E87.5 - Hyperkalemia Status: Acute Assessment and Plan: Resolved Patient has been having mild hyperkalemia as an outpatient and now presented with K which e w went up to 6.7 was treated with medications. Potassium level has now normalized. Monitor and treat accordingly (7) Cardiac arrest: Code(s): I46.9 - Cardiac arrest, cause unspecified Status: Acute Assessment and Plan: Patient had cardiac arrest with unknown clear etiology. Possible etiologies are respiratory failure from pneumonia and congestive h
[2023-11-28] MEDS: PROPOFOL IV EMULSION 100 ML 6.83 MG IV CONT (09:27)
--- NOTE | 2023-11-28 10:55 | PM.PNCARD ---
Progress Note: A&P Assessment and Plan (1) Cardiac arrest: Code(s): I46.9 - Cardiac arrest, cause unspecified Status: Acute Plan This is a 43-year-old white female who presented to the hospital following resuscitation from PEA. Volume removal hemodialysis today. Goal with 4 L negative today. Continue supportive care. A patient this young following cardiac arrest with her risk factors should ideally undergo left heart catheterization when she is an acceptable candidate for that. We will follow her with you and if/when things improve when she becomes a candidate for evaluation we will proceed with that. Dm Kelley MD, [facility] Subjective Date/time seen: 11/28/23 10:55 Interval history: 43-year-old hyperkalemia, PEA cardiac arrest Date of service 11/26/2023: She is intubated. Not responsive to verbal stimuli. Date of service 11/28/2023: Patient does awaken and follow basic commands. Anasarca noted Review of Systems Integumentary/Breasts: Comments: Generalized edema noted Exam Const: Other: Obese white female appears her stated age intubated on mechanical ventilator support HENMT: Mouth: Yes moist mucous membranes Eyes: Sclera: sclerae normal Neck: Neck: supple Other: Carotid pulses are intact bilaterally. Unable to comment upon JVD given her body habitus Resp: Auscultation: clear to auscultation bilaterally Cardio: Rate: regular rate Rhythm: regular rhythm Other: PMI not palpable. No murmur no gallop GI: Auscultation: normal bowel sounds Skin: General skin exam: normal color Neuro: Other: Sedated Extrem: Other: Adequate perfusion, significant generalized edema noted Objective Data Vital Signs Vital Signs: Vital Signs - 24 hr 11/27/23 11:00 11/27/23 11:15 11/27/23 11:30 Temperature Pulse Rate 67 66 65 Respiratory Rate Blood Pressure 121/62 123/58 L 117/63 Pulse Oximetry Oxygen Delivery Fraction of Inspired Oxygen 11/27/23 11:45 11/27/23 12:00 11/27/23 12:15 Temperature Pulse Rate 65 65 63 Respiratory Rate Blood Pressure 117/58 L 122/57 L 118/58 L Pulse Oximetry Oxygen Delivery Fraction of Inspired Oxygen 11/27/23 12:30 11/27/23 12:45 11/27/23 12:55 Temperature Pulse Rate 63 63 65 Respiratory Rate Blood Pressure 115/62 123/57 L 120/64 Pulse Oximetry Oxygen Delivery Fraction of Inspired Oxygen 11/27/23 13:00 11/27/23 12:00 11/27/23 12:00 Temperature 36.3 C L Pulse Rate 18 L 64 64 Respiratory Rate 18 18 18 Blood Pressure 131/66 Pulse Oximetry 100 Oxygen Delivery Fraction of Inspired Oxygen 11/27/23 12:00 11/27/23 12:00 11/27/23 12:00 Temperature 36.5 C Pulse Rate 64 65 Respiratory Rate 18 Blood Pressure 122/57 L Pulse Oximetry 97 93 Oxygen Delivery Mechanical Ventilation Fraction of Inspired Oxygen 80 11/27/23 12:00 11/27/23 13:19 11/27/23 14:01 Temperature Pulse Rate 65 67 Respiratory Rate 18 Blood Pressure Pulse Oximetry 99 Oxygen Delivery Mechanical Ventilation Fraction of Inspired Oxygen 80 80 11/27/23 14:01 11/27/23 14:00 11/27/23 14:00 Temperature 36.6 C Pulse Rate 67 67 67 Respiratory Rate 18 18 Blood Pressure 131/61 Pulse Oximetry 99 Oxygen Delivery Fraction of Inspired Oxygen 11/27/23 14:45 11/27/23 14:00 11/27/23 14:00 Temperature Pulse Rate 66 66 66 Respiratory Rate 18 18 18 Blood Pressure Pulse Oximetry Oxygen Delivery Fraction of Inspired Oxygen 11/27/23 16:00 11/27/23 16:00 11/27/23 16:00 Temperature Pulse Rate 69 69 71 Respiratory Rate 18 18 Blood Pressure Pulse Oximetry Oxygen Delivery Fraction of Inspired Oxygen 11/27/23 16:00 11/27/23 16:00 11/27/23 16:00 Temperature 36.7 C Pulse Rate 69 Respiratory Rate 18 Blood Pressure 145/63 H Pulse Oximetry 97 98 Oxygen Delivery Mechanical Ventilation
[2023-11-28] MEDS: carvediloL 6.25 MG TABLET PO ×2 (11:03→20:24)
[2023-11-28] MEDS: amLODIPine BESYLATE 5 MG TABLET 10 MG PO (11:03)
--- NOTE | 2023-11-28 11:43 | PCFNICU ---
ICU Rounding Note: Pt current nutrition is Nepro at 40 ml/hr with Prosource BID Last recorded weight is 111.8 kg, down from 118.1 kg on admit. Bowel Motility:No BM-spoke with Foreign Exchange Dealer regarding GI motility agent. Labs Reviewed:Glu 341, BUN 54, GFR 22, Cr 2.4 Meds Noted:Fentanyl,Protonix, Lantus, Propofol 10.24ml/kw=499 kcals, NovoLog, Atrovent Skin: WNL Additional Notes: Patient remains on mechanical vent. Tube feedings being changed to Nepro at 40 ml/hr, carbsteady. Total nutrition: 2014 kcals/111 gms protein/640 ml water. Flush 30 ml q 4 hours. Patient getting dialysis today. Agree with diet orders at this time. Following daily in ICU rounds. Will monitor weight, labs, skin, meds, tube feeding tolerance every Sunday and Sunday.
[2023-11-28 12:03] LABS: Glucose Point of Care 347 mg/dl (65-105)
[2023-11-28] MEDS: FENTANYL 2,500MCG/NS250ML(*CRX 2,500 MCG/250 ML BAG 7.5 MCG IV CONT (13:13)
--- NOTE | 2023-11-28 13:35 | P.PNNP_ITS ---
Progress Note: A&P Assessment and Plan (1) JOHN PAUL (acute kidney injury): Code(s): N17.9 - Acute kidney failure, unspecified Status: Acute Assessment and Plan: * multifactorial etiology: * cardiac arrest * hemodynamic instability * sepsis/infection * hypoxia * contrast exposure (CTA of chest on admission) * pre-renal factors * diuretic therapy prior to admission * s/p aggressive IVF resuscitation * evaluation to date: * CT scan of abdomen without obstruction * renal ultrasound left renal scarring and volume loss * CPK normal * urine electrolytes prerenal * urine eosinophils negative * moderate proteinuria * HD day before yesterday. yesteray and today to help optimize volume status and provide clearance of uremic toxins * plan another treatment tomorrow for further fluid removal * follow repeat labs and UOP for potential renal recovery (2) Stage 3b chronic kidney disease: Code(s): N18.32 - Chronic kidney disease, stage 3b Status: Chronic Assessment and Plan: * evidence of renal insufficiency/chronic kidney disease 2021 * creatinine seems to run around 1.3 - 1.7mg/dl * presumably due to hypertension, diabetes, and vascular disease (3) Hyperkalemia: Code(s): E87.5 - Hyperkalemia Status: Acute Assessment and Plan: * resolved * noted on admission and as an outpatient * s/p medical management with improvement * possible type IV RTA (common in diabetics)? * follow repeat K+ levels (4) Sepsis: Code(s): A41.9 - Sepsis, unspecified organism Status: Acute Assessment and Plan: * possibly due to pneumonia * CT scan on admission sugesstive of pneumonia and/or pulmonary edema * follow culture data * on empiric antibiotics * off vasopressor therapy (5) Acute hypoxic respiratory failure: Code(s): J96.01 - Acute respiratory failure with hypoxia Status: Acute Assessment and Plan: * felt to be secondary to combination of pneumonia and pulmonary edema in conjunction with cardiac arrest * IVFs on hold * antibiotics for pneumonia * continue ventilator support * weaning once more stable (6) Cardiac arrest: Code(s): I46.9 - Cardiac arrest, cause unspecified Status: Acute Assessment and Plan: * etiology not entirely clear: * pneumonia? * CHF? * hyperkalemia? * primary cardiac event? * trend of troponins (elevation could just be from cardiac arrest + CPR) * Echo results reviewed * Cardiology recommendations noted (7) Diabetes: Code(s): E11.9 - Type 2 diabetes mellitus without complications Status: Chronic Assessment and Plan: * follow accu-cheks * was on insulin gtt (noted DKA on admission) * transitioned to SQ insulin * glycemic control per locket maker/hospitalists Will continue to follow. Subjective Date/time seen: 11/28/23 13:35 Interval history: Follow-up for acute kidney injury/acute renal failure on chronic kidney disease. Tolerated dialysis treatment yesterday and tolerating dialysis treatment at the time of my visit (seen on HD at 1:25 PM); remains hemodynamically stable and afebrile; remains intubated/sedated and on mechanical ventilation; following simple commands and nods to yes/no questions. Exam Narrative: General: large WD/WN female intubated/sedated on mechanical ventilation Heart: normal S1 and S2; no rub Lungs: coarse breath sounds; decr
--- NOTE | 2023-11-28 13:35 | PM.PNNEP ---
Progress Note: A&P Assessment and Plan (1) JOHN PAUL (acute kidney injury): Code(s): N17.9 - Acute kidney failure, unspecified Status: Acute Assessment and Plan: multifactorial etiology: cardiac arrest hemodynamic instability sepsis/infection hypoxia contrast exposure (CTA of chest on admission) pre-renal factors diuretic therapy prior to admission s/p aggressive IVF resuscitation evaluation to date: CT scan of abdomen without obstruction renal ultrasound left renal scarring and volume loss CPK normal urine electrolytes prerenal urine eosinophils negative moderate proteinuria HD day before yesterday. yesteray and today to help optimize volume status and provide clearance of uremic toxins plan another treatment tomorrow for further fluid removal follow repeat labs and UOP for potential renal recovery (2) Stage 3b chronic kidney disease: Code(s): N18.32 - Chronic kidney disease, stage 3b Status: Chronic Assessment and Plan: evidence of renal insufficiency/chronic kidney disease 2021 creatinine seems to run around 1.3 - 1.7mg/dl presumably due to hypertension, diabetes, and vascular disease (3) Hyperkalemia: Code(s): E87.5 - Hyperkalemia Status: Acute Assessment and Plan: resolved noted on admission and as an outpatient s/p medical management with improvement possible type IV RTA (common in diabetics)? follow repeat K+ levels (4) Sepsis: Code(s): A41.9 - Sepsis, unspecified organism Status: Acute Assessment and Plan: possibly due to pneumonia CT scan on admission sugesstive of pneumonia and/or pulmonary edema follow culture data on empiric antibiotics off vasopressor therapy (5) Acute hypoxic respiratory failure: Code(s): J96.01 - Acute respiratory failure with hypoxia Status: Acute Assessment and Plan: felt to be secondary to combination of pneumonia and pulmonary edema in conjunction with cardiac arrest IVFs on hold antibiotics for pneumonia continue ventilator support weaning once more stable (6) Cardiac arrest: Code(s): I46.9 - Cardiac arrest, cause unspecified Status: Acute Assessment and Plan: etiology not entirely clear: pneumonia? CHF? hyperkalemia? primary cardiac event? trend of troponins (elevation could just be from cardiac arrest + CPR) Echo results reviewed Cardiology recommendations noted (7) Diabetes: Code(s): E11.9 - Type 2 diabetes mellitus without complications Status: Chronic Assessment and Plan: follow accu-cheks was on insulin gtt (noted DKA on admission) transitioned to SQ insulin glycemic control per senior water resources engineer/hospitalists Will continue to follow. Subjective Date/time seen: 11/28/23 13:35 Interval history: Follow-up for acute kidney injury/acute renal failure on chronic kidney disease. Tolerated dialysis treatment yesterday and tolerating dialysis treatment at the time of my visit (seen on HD at 1:25 PM); remains hemodynamically stable and afebrile; remains intubated/sedated and on mechanical ventilation; following simple commands and nods to yes/no questions. Exam Narrative: General: large WD/WN female intubated/sedated on mechanical ventilation Heart: normal S1 and S2; no rub Lungs: coarse breath sounds; decreased at bases Abdomen: soft, nontender, nondistended, positive bowel sounds Extremities: no cyanosis or clubbing; 1+ edema Skin: no nodules Objective Data Vital Signs Vital Signs: Vital Signs Temp Pulse Resp BP Pulse Ox O2 Del Method FiO2 11/28/23 13:30 76 141/57 H 11/28/23 13:15 77 147/57 H 11/28/23 13:08 76 152/59 H 11/28/23 13:04 60 11/28/23 12:56 99.9 F H 77 18 150/59 H 95 11/28/23 08:00 95 Mechanical Ventilation 60 11/28/23 12:00 60 11/28/23 08:00 60 11/28/23
[2023-11-28] MEDS: polyethylene glycoL 3350 17 GM POWD.PACK PO (14:15)
[2023-11-28] MEDS: EPOETIN ALFA-EPBX 10,000 UNITS/ML VIAL 10000 UNITS IV PUSH (15:38)
[2023-11-28 15:58] LABS: Glucose Point of Care 177 mg/dl (65-105)
[2023-11-28] MEDS: CEFEPIME 2 GM/NS 50 ML 2 GM/50 ML BAG IVPB (16:30)
[2023-11-28] MEDS: HEPARIN SODIUM 1,000 UNITS/ML VIAL 4000 UNITS IV PUSH (17:19)
[2023-11-28] MEDS: METOCLOPRAMIDE HCL INJ 10 MG/2 ML VIAL IV PUSH ×2 (17:50→23:45)
[2023-11-28 20:18] LABS: Glucose Point of Care 227 mg/dl (65-105)
[2023-11-28 23:59] LABS: Glucose Point of Care 188 mg/dl (65-105)
[2023-11-29] VITALS (50 sets, daily range): BP systolic 128–175; BP diastolic 52–72; PULSE 71–86; RESP 18–21; TEMP 37–38.4; O2SAT 91–98
[2023-11-29] MEDS: IPRATROPIUM BR 0.02% INH SOLN 0.5 MG/2.5 ML VIAL INHALATION ×4 (01:56→21:06)
[2023-11-29] MEDS: ALBUTEROL SULFATE NEB 2.5 MG/3 ML INH 5 MG INHALATION ×4 (01:56→21:06)
[2023-11-29] MEDS: PROPOFOL IV EMULSION 100 ML 10.24 MG IV CONT ×3 (03:41→20:43)
[2023-11-29 03:56] LABS: Glucose Point of Care 193 mg/dl (65-105)
[2023-11-29 04:39] LABS: Base Excess ABG 2.3 mEq/l (+/-2.0); Carboxyhemoglobin 0.3 % THb (0-2.0); Fractional Inspired Oxygen 60 %; HCO3 ABG 25.9 mEq/l (22.0-26.0); Methemoglobin ABG 0.3 %THb (0-1.5); Oxygen Content ABG 12.4 %vol (16.0-22.0); Oxyhemoglobin 89.9 % THb (90.0-100.0); PCO2 ABG 36.2 mmHg (35.0-45.0); PO2 FiO2 Ratio Arterial Blood 0.97 %; Reduced Hemoglobin 9.5 %THb (0-5.0); Total Hemoglobin 9.8 g/dL (12.0-18.0); pH ABG 7.473 (7.350-7.450)
[2023-11-29 04:41] LABS: Device VENTILATOR; Modified Allen's Test Pass; Site Drawn RIGHT RADIAL
[2023-11-29 04:42] LABS: Arterial Blood Gas PEEP 10 cmH2O; Arterial Blood Gas Tidal Volume 400 ml; Arterial Blood Gas Vent Mode CMV; Arterial Blood Gas Ventilator rate 18 /MIN
[2023-11-29] MEDS: CENTRAL LINE FLUSH 10 ML IV PUSH ×3 (05:34→20:54)
[2023-11-29] MEDS: METOCLOPRAMIDE HCL INJ 10 MG/2 ML VIAL IV PUSH ×4 (05:34→23:50)
[2023-11-29 05:45] LABS: Hemoglobin 8.9 g/dL (12.0-15.0); Mean Corpuscular HGB Conc 29.7 g/dl (32-36); Mean Corpuscular Hemoglobin 27.6 pg (26-34); Mean Corpuscular Volume 93.2 fl (80-100); Mean Platelet Volume 10.7 fl (7.4-10.4); Platelet Count Result 244 k/mm3 (150-375); Red Blood Count 3.22 M/mm3 (4.2-5.4); Red Cell Distribution Width 14.9 % (11.5-14.5); White Blood Count 27.4 K/mm3 (4.5-10.0)
[2023-11-29 05:57] LABS: Alanine Aminotransferase 651 U/L (6-35); Albumin Level 2.8 g/dL (3.5-5.1); Alkaline Phosphatase 184 U/L (38-126); Anion Gap 8 mmol/L (8-16); Aspartate Amino Transferase 55 U/L (14-36); Bilirubin,Total 0.8 mg/dL (0.2-1.3); Blood Urea Nitrogen 47 mg/dL (7-17); Calcium 8.1 mg/dL (8.4-10.2); Carbon Dioxide 27 mmol/L (22-30); Chloride 102 mmol/L (98-107); Creatine Kinase 205 U/L (30-135); Estimated CRCL calculation 46 ml/min; Estimated Glomerular Filt Rate 33; Glucose 209 mg/dL (65-110); Phosphorus 2.6 mg/dL (2.5-4.5); Potassium 3.9 mmol/L (3.4-5.0); Sodium 137 mmol/L (137-145); Triglycerides 112 mg/dL (<150)
[2023-11-29 06:02] LABS: INR 1.4; Prothrombin Time 18.2 Seconds (11.1-14.7)
[2023-11-29 06:03] LABS: Partial Thromboplastin Time 33.6 SECONDS (22.3-36.8)
[2023-11-29] MEDS: ACETAMINOPHEN ELIXIR 325 MG/10.15 ML UDC 650 MG PO ×2 (07:05→18:20)
[2023-11-29 07:35] LABS: Glucose Point of Care 242 mg/dl (65-105)
--- NOTE | 2023-11-29 08:55 | PM.PNNEP ---
Progress Note: A&P Assessment and Plan (1) JOHN PAUL (acute kidney injury): Code(s): N17.9 - Acute kidney failure, unspecified Status: Acute Assessment and Plan: multifactorial etiology: cardiac arrest hemodynamic instability sepsis/infection hypoxia contrast exposure (CTA of chest on admission) pre-renal factors diuretic therapy prior to admission s/p aggressive IVF resuscitation evaluation to date: CT scan of abdomen without obstruction renal ultrasound left renal scarring and volume loss CPK normal urine electrolytes prerenal urine eosinophils negative moderate proteinuria HD day before yesterday. yesteray and today to help optimize volume status and provide clearance of uremic toxins plan another treatment tomorrow for further fluid removal follow repeat labs and UOP for potential renal recovery (2) Stage 3b chronic kidney disease: Code(s): N18.32 - Chronic kidney disease, stage 3b Status: Chronic Assessment and Plan: evidence of renal insufficiency/chronic kidney disease 2021 creatinine seems to run around 1.3 - 1.7mg/dl presumably due to hypertension, diabetes, and vascular disease (3) Hyperkalemia: Code(s): E87.5 - Hyperkalemia Status: Acute Assessment and Plan: resolved noted on admission and as an outpatient s/p medical management with improvement possible type IV RTA (common in diabetics)? follow repeat K+ levels (4) Sepsis: Code(s): A41.9 - Sepsis, unspecified organism Status: Acute Assessment and Plan: possibly due to pneumonia CT scan on admission sugesstive of pneumonia and/or pulmonary edema follow culture data on empiric antibiotics off vasopressor therapy (5) Acute hypoxic respiratory failure: Code(s): J96.01 - Acute respiratory failure with hypoxia Status: Acute Assessment and Plan: felt to be secondary to combination of pneumonia and pulmonary edema in conjunction with cardiac arrest IVFs on hold antibiotics for pneumonia dry ultrafiltration today for further fluid removal continue ventilator support weaning once more stable (6) Cardiac arrest: Code(s): I46.9 - Cardiac arrest, cause unspecified Status: Acute Assessment and Plan: etiology not entirely clear: pneumonia? CHF? hyperkalemia? primary cardiac event? trend of troponins (elevation could just be from cardiac arrest + CPR) Echo results reviewed Cardiology recommendations noted (7) Diabetes: Code(s): E11.9 - Type 2 diabetes mellitus without complications Status: Chronic Assessment and Plan: follow accu-cheks was on insulin gtt (noted DKA on admission) transitioned to SQ insulin glycemic control per implementation specialist/hospitalists Will continue to follow. Subjective Date/time seen: 11/29/23 08:55 Interval history: Follow-up for acute kidney injury/acute renal failure on chronic kidney disease. Tolerated dialysis treatment yesterday with 4L fluid removal; remains intubated/sedated and on mechanical ventilation; remains hemodynamically stable and making some urine output; WBC remains elevated and febrile overnight and this AM; no apparent distress; plan DUF this afternoon for further fluid removal. Exam Narrative: General: large WD/WN female intubated/sedated on mechanical ventilation Heart: normal S1 and S2; no rub Lungs: coarse breath sounds; decreased at bases Abdomen: soft, nontender, nondistended, positive bowel sounds Extremities: no cyanosis or clubbing; 1+ edema Skin: warm and dry Objective Data Vital Signs Vital Signs: Vital Signs Temp Pulse Resp BP Pulse Ox O2 Del Method FiO2 11/29/23 08:03 101.0 F H 80 11/29/23 08:00 101.1 F H 82 18 163/58 H 95 11/29/23 07:54 84 94 Mechanical Ventilation 60 11/29/23 07:43 84 18 11/29/23 07:05 101.1 F H 11/29/23
--- NOTE | 2023-11-29 08:55 | P.PNNP_ITS ---
Progress Note: A&P Assessment and Plan (1) JOHN PAUL (acute kidney injury): Code(s): N17.9 - Acute kidney failure, unspecified Status: Acute Assessment and Plan: * multifactorial etiology: * cardiac arrest * hemodynamic instability * sepsis/infection * hypoxia * contrast exposure (CTA of chest on admission) * pre-renal factors * diuretic therapy prior to admission * s/p aggressive IVF resuscitation * evaluation to date: * CT scan of abdomen without obstruction * renal ultrasound left renal scarring and volume loss * CPK normal * urine electrolytes prerenal * urine eosinophils negative * moderate proteinuria * HD day before yesterday. yesteray and today to help optimize volume status and provide clearance of uremic toxins * plan another treatment tomorrow for further fluid removal * follow repeat labs and UOP for potential renal recovery (2) Stage 3b chronic kidney disease: Code(s): N18.32 - Chronic kidney disease, stage 3b Status: Chronic Assessment and Plan: * evidence of renal insufficiency/chronic kidney disease 2021 * creatinine seems to run around 1.3 - 1.7mg/dl * presumably due to hypertension, diabetes, and vascular disease (3) Hyperkalemia: Code(s): E87.5 - Hyperkalemia Status: Acute Assessment and Plan: * resolved * noted on admission and as an outpatient * s/p medical management with improvement * possible type IV RTA (common in diabetics)? * follow repeat K+ levels (4) Sepsis: Code(s): A41.9 - Sepsis, unspecified organism Status: Acute Assessment and Plan: * possibly due to pneumonia * CT scan on admission sugesstive of pneumonia and/or pulmonary edema * follow culture data * on empiric antibiotics * off vasopressor therapy (5) Acute hypoxic respiratory failure: Code(s): J96.01 - Acute respiratory failure with hypoxia Status: Acute Assessment and Plan: * felt to be secondary to combination of pneumonia and pulmonary edema in conjunction with cardiac arrest * IVFs on hold * antibiotics for pneumonia * dry ultrafiltration today for further fluid removal * continue ventilator support * weaning once more stable (6) Cardiac arrest: Code(s): I46.9 - Cardiac arrest, cause unspecified Status: Acute Assessment and Plan: * etiology not entirely clear: * pneumonia? * CHF? * hyperkalemia? * primary cardiac event? * trend of troponins (elevation could just be from cardiac arrest + CPR) * Echo results reviewed * Cardiology recommendations noted (7) Diabetes: Code(s): E11.9 - Type 2 diabetes mellitus without complications Status: Chronic Assessment and Plan: * follow accu-cheks * was on insulin gtt (noted DKA on admission) * transitioned to SQ insulin * glycemic control per rack washer/hospitalists Will continue to follow. Subjective Date/time seen: 11/29/23 08:55 Interval history: Follow-up for acute kidney injury/acute renal failure on chronic kidney disease. Tolerated dialysis treatment yesterday with 4L fluid removal; remains intubated/sedated and on mechanical ventilation; remains hemodynamically stable and making some urine output; WBC remains elevated and febrile overnight and this AM; no apparent distress; plan DUF this afternoon for further fluid removal. Exam Narrative: General: large WD/WN female intubated/sedated on mechanical
[2023-11-29] MEDS: ASPIRIN 325 MG TABLET FEED TUBE (08:58)
[2023-11-29] MEDS: carvediloL 6.25 MG TABLET PO (08:58)
[2023-11-29] MEDS: amLODIPine BESYLATE 5 MG TABLET 10 MG PO (08:58)
[2023-11-29] MEDS: MINERAL OIL/WHITE PETROLATUM OINTMENT 1 APPLIC EACH EYE ×2 (08:59→20:53)
[2023-11-29] MEDS: polyethylene glycoL 3350 17 GM POWD.PACK PO (08:59)
[2023-11-29] MEDS: ENOXAPARIN 30 MG/0.3 ML SYRINGE SUB-Q (08:59)
[2023-11-29] MEDS: PANTOPRAZOLE SODIUM IV 40 MG VIAL IV PUSH ×2 (08:59→20:53)
[2023-11-29] MEDS: INSULIN GLARGINE (*BKC) 100 UNITS/ML 65 UNITS SUB-Q ×2 (09:06→20:52)
[2023-11-29] MEDS: INSULIN ASPART (*BKC) 100 UNITS/ML SUB-Q ×5 (09:09→23:49)
--- NOTE | 2023-11-29 09:50 | PM.PNCARD ---
Progress Note: A&P Assessment and Plan (1) Cardiac arrest: Code(s): I46.9 - Cardiac arrest, cause unspecified Status: Acute Plan This is a 43-year-old white female who presented to the hospital following resuscitation from PEA. Volume removal hemodialysis today. Goal with 4 L negative today. Continue supportive care. A patient this young following cardiac arrest with her risk factors should ideally undergo left heart catheterization when she is an acceptable candidate for that. We will follow her with you and if/when things improve when she becomes a candidate for evaluation we will proceed with that. Subjective Date/time seen: 11/29/23 09:50 Interval history: 43-year-old hyperkalemia, PEA cardiac arrest Date of service 11/26/2023: She is intubated. Not responsive to verbal stimuli. Date of service 11/28/2023: Patient does awaken and follow basic commands. Anasarca noted Date of service 11/29/23: Remains intubated and sedated. No significant change in clinical status. Review of Systems Review of Systems: ROS unobtainable: Yes unobtainable due to endotracheal tube and unobtainable due to mental status Exam Const: Other: Obese white female appears her stated age intubated on mechanical ventilator support HENMT: Mouth: Yes moist mucous membranes Eyes: Sclera: sclerae normal Neck: Neck: supple Other: Carotid pulses are intact bilaterally. Unable to comment upon JVD given her body habitus Resp: Auscultation: clear to auscultation bilaterally Cardio: Rate: regular rate Rhythm: regular rhythm Other: PMI not palpable. No murmur no gallop GI: Auscultation: normal bowel sounds Skin: General skin exam: normal color Neuro: Other: Sedated Extrem: Other: Adequate perfusion, significant generalized edema noted Objective Data Vital Signs Vital Signs: Vital Signs - 24 hr 11/28/23 11:03 11/28/23 10:00 11/28/23 11:44 Temperature Pulse Rate 79 79 78 Respiratory Rate 18 Blood Pressure Pulse Oximetry 95 Oxygen Delivery Mechanical Ventilation Fraction of Inspired Oxygen 60 11/28/23 10:00 11/28/23 12:00 11/28/23 12:00 Temperature 37.6 C H 37.7 C H Pulse Rate 81 77 78 Respiratory Rate 18 18 18 Blood Pressure 151/60 H 150/59 H Pulse Oximetry 95 95 Oxygen Delivery Fraction of Inspired Oxygen 11/28/23 10:00 11/28/23 12:00 11/28/23 13:13 Temperature Pulse Rate 79 78 79 Respiratory Rate 18 18 18 Blood Pressure Pulse Oximetry Oxygen Delivery Fraction of Inspired Oxygen 11/28/23 10:00 11/28/23 12:00 11/28/23 12:00 Temperature Pulse Rate 81 77 Respiratory Rate Blood Pressure Pulse Oximetry Oxygen Delivery Fraction of Inspired Oxygen 60 11/28/23 14:00 11/28/23 12:00 11/28/23 14:00 Temperature 37.7 C H Pulse Rate 76 76 Respiratory Rate 18 Blood Pressure 143/60 H Pulse Oximetry 95 95 Oxygen Delivery Mechanical Ventilation Fraction of Inspired Oxygen 60 11/28/23 12:56 11/28/23 13:04 11/28/23 13:08 Temperature 37.7 C H Pulse Rate 77 76 Respiratory Rate 18 Blood Pressure 150/59 H 152/59 H Pulse Oximetry 95 Oxygen Delivery Fraction of Inspired Oxygen 60 11/28/23 13:15 11/28/23 14:00 11/28/23 14:15 Temperature Pulse Rate 77 76 76 Respiratory Rate Blood Pressure 147/57 H 143/60 H 142/59 H Pulse Oximetry Oxygen Delivery Fraction of Inspired Oxygen 11/28/23 14:30 11/28/23 14:45 11/28/23 15:00 Temperature Pulse Rate 75 75 74 Respiratory Rate Blood Pressure 141/60 H 140/57 L 139/60 Pulse Oximetry Oxygen Delivery Fraction of Inspired Oxygen 11/28/23 15:30 11/28/23 15:41 11/28/23 15:45 Temperature Pulse Rate 74 75 74 Respiratory Rate Blood Pressure 140/57 L 140/59 L 134/59 L Pulse Oximetry Oxygen Delivery Fraction of Inspired Oxygen 11/28/23 16:00 11/28/23 16:15 11/28/23
--- NOTE | 2023-11-29 10:52 | PCFNICU ---
ICU Rounding Note: Pt current nutrition is Nepro at 40ml/hr. Nutrition recommendation: continue with current plan of care. Last recorded weight is 110.5 kg, wt down due to fluid removal with dialysis. Bowel Motility: No BM, miralax and reglan in place as of 11/28 Labs Reviewed: Hgb:8.9, HCT:30, Alb:2.8, BUN:47, Cr:1.7, Glu:242 - improved Meds Noted: reglan, miralax, protonix, propofol 15mcg/10.24ml/hr = 270kcals, lantus, novolog Skin: no skin issues noted Additional Notes: Pt remains on mechanical vent. Tube feedings changed per recommendation to Nepro at 40ml/hr, pt tolerating well. Noted improved glucose. Total nutrition: 2014 kcals/111 gms protein/640 ml water. Flush 30 ml q 4 hours. Following daily in ICU rounds. Will monitor weight, labs, skin, meds, tube feeding tolerance every Sunday and Sunday. .
[2023-11-29 11:27] LABS: Glucose Point of Care 292 mg/dl (65-105)
--- NOTE | 2023-11-29 11:40 | WPDINTPN ---
Progress Note: A&P Assessment and Plan (1) Acute hypoxic respiratory failure: Code(s): J96.01 - Acute respiratory failure with hypoxia Status: Acute Assessment and Plan: Acute hypoxic respiratory failure likely secondary to combination of pneumonia and pulmonary edema Hold further IV fluids -chest x-ray this morning: Moderate pulmonary edema pattern with small right pleural effusion -currently on 60% FiO2 and peep of 10. Wean FiO2 to maintain O2 sats greater than 92% -started dialysis on 11/26 -patient was dialyzed on 11/26, 11/27, 11/28. Patient to get dialysis again today -Continue bronchodilators Sedated fentanyl and propofol infusions, will maintain RASS of 0 to -2. Daily sedation vacation for SAT and SBT (2) Sepsis: Code(s): A41.9 - Sepsis, unspecified organism Status: Acute Assessment and Plan: CT scan done on presentation showed patchy airspace opacities throughout the lungs consistent with pneumonia or pulmonary edema 11/23: Blood, sputum and urine cultures are negative -Continue empiric cefepime, status post 5 days of azithromycin Nasal MRSA was negative hence vancomycin discontinued in light of worsening renal function 11/29: Patient has been febrile of life with a T-max of 101.1, WBC count is still at 27.4 -will obtain blood, urine and sputum cultures (3) Shock: Code(s): R57.9 - Shock, unspecified Status: Acute Assessment and Plan: Multifactorial shock secondary to sepsis and cardiogenic Off levophed and vasopressin Off hydrocortisone Hold further IV fluids due to volume overload (4) DKA (diabetic ketoacidosis): Qualifiers: Diabetes mellitus type: type 1 Diabetes mellitus complication detail: without coma Qualified Code(s): E10.10 - Type 1 diabetes mellitus with ketoacidosis without coma Code(s): E11.10 - Type 2 diabetes mellitus with ketoacidosis without coma Status: Acute Assessment and Plan: Patient on presentation was in DKA and was started on IV insulin infusion. Her anion gap has closed and she has been transition to subcutaneous insulin. Blood glucose was elevated yesterday evening and patient was restarted on insulin infusion. 11/27: Off insulin infusion -increase Lantus to 65 units q.12h -continue Accu-Cheks and sliding scale insulin (5) Acute kidney injury superimposed on CKD: Code(s): N17.9 - Acute kidney failure, unspecified; N18.9 - Chronic kidney disease, unspecified Status: Acute Assessment and Plan: Patient has history of chronic kidney disease likely secondary to diabetes and hypertension and now presented with much elevated creatinine which is likely multifactorial and secondary to sepsis, hypoxia and cardiac arrest. She also received IV contrast for her CTA although that is probably not responsible for her JOHN PAUL -She has received fluids and now appears to be volume overloaded hence further fluids will be held -Potassium has normalized with treatment and will be monitored -CT scan of the abdomen did not show any hydronephrosis or stone -11/25 Renal ultrasound: IMPRESSION: No evidence of hydronephrosis of either kidney Left renal scarring and volume loss CK level was normal Nephrology is following -Her creatinine has further increased to 5.6 and urine output remains poor. She did not respond to Lasix -11/26: Dialysis catheter was placed and patient started on dialysis -patient got dialyzed on 11/26, 11/27, 11/28 Continue to monitor urine output electrolytes and creatinine (6) Hyperkalemia: Code(s): E87.5 - Hyperkalemia Status: Acute Assessment and Plan: Resolved Patient has been having mild hyperkalemia as an outpatient and now presented on admission with K which went up to 6.7, which was treated with medications. - Potassium level has now normalized. -Monitor and treat accordingly (7) Cardiac arrest: Code(s): I46.9 - Cardiac arrest, cause unspecified
[2023-11-29] MEDS: HEPARIN SODIUM 1,000 UNITS/ML VIAL 4000 UNITS IV PUSH (15:32)
[2023-11-29 16:38] LABS: Glucose Point of Care 303 mg/dl (65-105)
[2023-11-29] MEDS: CEFEPIME 2 GM/NS 50 ML 2 GM/50 ML BAG IVPB (17:27)
[2023-11-29] MEDS: hydrALAZINE HCL 20 MG/ML VIAL IV PUSH ×2 (17:35→22:30)
[2023-11-29 20:52] LABS: Glucose Point of Care 399 mg/dl (65-105)
[2023-11-29] MEDS: carvediloL 25 MG TABLET PO (20:53)
[2023-11-29] MEDS: FENTANYL 2,500MCG/NS250ML(*CRX 2,500 MCG/250 ML BAG 7.5 MCG IV CONT (22:31)
[2023-11-30] VITALS (53 sets, daily range): BP systolic 89–165; BP diastolic 48–74; PULSE 79–89; RESP 16–19; TEMP 37–38.5; O2SAT 91–96
[2023-11-30 00:02] LABS: Glucose Point of Care 314 mg/dl (65-105)
[2023-11-30] MEDS: IPRATROPIUM BR 0.02% INH SOLN 0.5 MG/2.5 ML VIAL INHALATION ×4 (02:13→20:28)
[2023-11-30] MEDS: ALBUTEROL SULFATE NEB 2.5 MG/3 ML INH 5 MG INHALATION ×4 (02:14→20:28)
[2023-11-30] MEDS: INSULIN ASPART (*BKC) 100 UNITS/ML SUB-Q ×3 (03:28→20:52)
[2023-11-30] MEDS: PROPOFOL IV EMULSION 100 ML 13.66 MG IV CONT (03:29)
[2023-11-30 03:40] LABS: Glucose Point of Care 252 mg/dl (65-105)
[2023-11-30] MEDS: METOCLOPRAMIDE HCL INJ 10 MG/2 ML VIAL IV PUSH ×3 (05:35→18:43)
[2023-11-30] MEDS: CENTRAL LINE FLUSH 10 ML IV PUSH ×3 (05:35→20:56)
[2023-11-30 05:36] LABS: Alveolar/Arterial O2 Gradient 250.7 mmHg; Base Excess ABG -0.8 mEq/l (+/-2.0); Carboxyhemoglobin 0.4 % THb (0-2.0); Fractional Inspired Oxygen 50 %; HCO3 ABG 23.5 mEq/l (22.0-26.0); Methemoglobin ABG 0.3 %THb (0-1.5); Oxygen Saturation ABG 92.6 % (95.0-100.0); Oxyhemoglobin 90.9 % THb (90.0-100.0); PCO2 ABG 37.8 mmHg (35.0-45.0); PO2 ABG 63.3 mmHg (80.0-100.0); PO2 FiO2 Ratio Arterial Blood 1.27 %; Reduced Hemoglobin 8.4 %THb (0-5.0); Total Hemoglobin 10.9 g/dL (12.0-18.0); pH ABG 7.412 (7.350-7.450)
[2023-11-30 05:40] LABS: Arterial Blood Gas PEEP 10 cmH2O; Arterial Blood Gas Vent Mode CMV; Arterial Blood Gas Ventilator rate 18 /MIN; Device VENTILATOR; Modified Allen's Test Pass; Site Drawn LEFT RADIAL
[2023-11-30 05:41] LABS: Arterial Blood Gas Tidal Volume 400 ml
[2023-11-30 05:49] LABS: Basophils Absolute Auto 0.1 K/mm3 (0.0-0.1); Basophils Percent Auto 0.4 % (0.2-1.2); Eosinophils Absolute Auto 0.9 K/mm3 (0-0.3); Eosinophils Percent Auto 3.1 % (0-4.4); Hematocrit 31.6 % (37.0-47.0); Hemoglobin 9.3 g/dL (12.0-15.0); Immature Granulocyte Absolute 1.27 K/mm3 (0.00-0.031); Immature Granulocyte Percent A 4.7 % (0-0.5); Lymphocytes Absolute Auto 0.96 K/mm3 (0.9-3.2); Lymphocytes Percent Auto 3.5 % (18.3-44.2); Mean Corpuscular HGB Conc 29.4 g/dl (32-36); Mean Corpuscular Hemoglobin 27.8 pg (26-34); Mean Corpuscular Volume 94.3 fl (80-100); Mean Platelet Volume 11.1 fl (7.4-10.4); Monocytes Absolute Auto 2.4 K/mm3 (0.1-0.6); Neutrophils Absolute Auto 21.5 K/mm3 (1.3-6.7); Neutrophils Percent Auto 79.3 % (45.5-73.1); Nucleated Red Blood Cells Absolute Auto 0.1 K/mm3 (0.0-0.012); Nucleated Red Blood Cells Perc 0.3 % (0.0-0.2); Platelet Count Result 280 k/mm3 (150-375); Red Blood Count 3.35 M/mm3 (4.2-5.4); Red Cell Distribution Width 14.8 % (11.5-14.5); White Blood Count 27.1 K/mm3 (4.5-10.0)
[2023-11-30 06:00] LABS: INR 1.3; Prothrombin Time 17.3 Seconds (11.1-14.7)
[2023-11-30 06:01] LABS: Partial Thromboplastin Time 33.5 SECONDS (22.3-36.8)
[2023-11-30 06:18] LABS: Alanine Aminotransferase 439 U/L (6-35); Alkaline Phosphatase 205 U/L (38-126); Anion Gap 8 mmol/L (8-16); Aspartate Amino Transferase 53 U/L (14-36); Bilirubin,Total 0.9 mg/dL (0.2-1.3); Blood Urea Nitrogen 67 mg/dL (7-17); Calcium 8.8 mg/dL (8.4-10.2); Carbon Dioxide 26 mmol/L (22-30); Chloride 102 mmol/L (98-107); Estimated CRCL calculation 35 ml/min; Estimated Glomerular Filt Rate 24; Glucose 224 mg/dL (65-110); Magnesium 2.1 mg/dL (1.6-2.3); Phosphorus 3.3 mg/dL (2.5-4.5); Potassium 4.1 mmol/L (3.4-5.0); Sodium 136 mmol/L (137-145)
[2023-11-30 06:31] LABS: Hypochromasia 1+ (NORMAL); Platelet Estimate Adequate (Adequate); Schistocytes None Seen (NORMAL)
[2023-11-30] MEDS: amLODIPine BESYLATE 5 MG TABLET 10 MG PO (08:12)
[2023-11-30] MEDS: carvediloL 25 MG TABLET PO ×2 (08:12→20:52)
[2023-11-30] MEDS: PANTOPRAZOLE SODIUM IV 40 MG VIAL IV PUSH ×2 (08:12→20:52)
[2023-11-30] MEDS: ASPIRIN 325 MG TABLET FEED TUBE (08:12)
[2023-11-30] MEDS: polyethylene glycoL 3350 17 GM POWD.PACK PO (08:12)
[2023-11-30] MEDS: MINERAL OIL/WHITE PETROLATUM OINTMENT 1 APPLIC EACH EYE ×2 (08:13→20:56)
[2023-11-30] MEDS: ENOXAPARIN 30 MG/0.3 ML SYRINGE SUB-Q (08:13)
[2023-11-30] MEDS: INSULIN GLARGINE (*BKC) 100 UNITS/ML 75 UNITS SUB-Q ×2 (08:17→20:53)
[2023-11-30 08:26] LABS: Glucose Point of Care 220 mg/dl (65-105)
--- NOTE | 2023-11-30 10:01 | PM.PNNEP ---
Progress Note: A&P Assessment and Plan (1) JOHN PAUL (acute kidney injury): Code(s): N17.9 - Acute kidney failure, unspecified Status: Acute Assessment and Plan: multifactorial etiology: cardiac arrest hemodynamic instability sepsis/infection hypoxia contrast exposure (CTA of chest on admission) pre-renal factors diuretic therapy prior to admission s/p aggressive IVF resuscitation evaluation to date: CT scan of abdomen without obstruction renal ultrasound left renal scarring and volume loss CPK normal urine electrolytes prerenal urine eosinophils negative moderate proteinuria HD today follow repeat labs and UOP for potential renal recovery (2) Stage 3b chronic kidney disease: Code(s): N18.32 - Chronic kidney disease, stage 3b Status: Chronic Assessment and Plan: evidence of renal insufficiency/chronic kidney disease 2021 creatinine seems to run around 1.3 - 1.7mg/dl presumably due to hypertension, diabetes, and vascular disease (3) Hyperkalemia: Code(s): E87.5 - Hyperkalemia Status: Acute Assessment and Plan: resolved noted on admission and as an outpatient s/p medical management with improvement possible type IV RTA (common in diabetics)? follow repeat K+ levels (4) Sepsis: Code(s): A41.9 - Sepsis, unspecified organism Status: Acute Assessment and Plan: possibly due to pneumonia CT scan on admission sugesstive of pneumonia and/or pulmonary edema follow culture data on empiric antibiotics off vasopressor therapy (5) Acute hypoxic respiratory failure: Code(s): J96.01 - Acute respiratory failure with hypoxia Status: Acute Assessment and Plan: felt to be secondary to combination of pneumonia and pulmonary edema in conjunction with cardiac arrest IVFs on hold antibiotics for pneumonia continue ventilator support weaning once more stable (6) Cardiac arrest: Code(s): I46.9 - Cardiac arrest, cause unspecified Status: Acute Assessment and Plan: etiology not entirely clear: pneumonia? CHF? hyperkalemia? primary cardiac event? trend of troponins (elevation could just be from cardiac arrest + CPR) Echo results reviewed Cardiology recommendations noted (7) Diabetes: Code(s): E11.9 - Type 2 diabetes mellitus without complications Status: Chronic Assessment and Plan: follow accu-cheks was on insulin gtt (noted DKA on admission) transitioned to SQ insulin glycemic control per knowledge engineer/hospitalists Will continue to follow. Subjective Date/time seen: 11/30/23 10:01 Interval history: Follow-up for acute kidney injury/acute renal failure on chronic kidney disease. Tolerated dry ultrafiltration treatment yesterday with another 4L fluid removal; tolerating dialysis at the time of my visit (seen on HD at 9:50AM); stable hemodynamics noted but still having low grade fevers; remains intubated/sedated and on mechanical ventilation; some urine output noted (was previously anuric); no apparent distress noted. Exam Narrative: General: large WD/WN female intubated/sedated on mechanical ventilation Heart: normal S1 and S2; no rub Lungs: coarse breath sounds; decreased at bases Abdomen: soft, nontender, nondistended, positive bowel sounds Extremities: no cyanosis or clubbing; 1+ edema Skin: warm and intact Objective Data Vital Signs Vital Signs: Vital Signs Temp Pulse Resp BP Pulse Ox O2 Del Method FiO2 11/30/23 10:00 81 116/50 L 11/30/23 09:45 83 133/56 L 11/30/23 09:35 100.8 F H 83 18 122/52 L 95 11/30/23 08:00 87 18 93 Mechanical Ventilation 50 11/30/23 08:00 50 11/30/23 08:00 100.9 F H 87 18 129/55 L 93 11/30/23 08:00 87 11/30/23 07:44 87 18 11/30/23 07:38 87 91 Mechanical Ventilation 50 11/30/23 07:34 87 18
--- NOTE | 2023-11-30 10:01 | P.PNNP_ITS ---
Progress Note: A&P Assessment and Plan (1) JOHN PAUL (acute kidney injury): Code(s): N17.9 - Acute kidney failure, unspecified Status: Acute Assessment and Plan: * multifactorial etiology: * cardiac arrest * hemodynamic instability * sepsis/infection * hypoxia * contrast exposure (CTA of chest on admission) * pre-renal factors * diuretic therapy prior to admission * s/p aggressive IVF resuscitation * evaluation to date: * CT scan of abdomen without obstruction * renal ultrasound left renal scarring and volume loss * CPK normal * urine electrolytes prerenal * urine eosinophils negative * moderate proteinuria * HD today * follow repeat labs and UOP for potential renal recovery (2) Stage 3b chronic kidney disease: Code(s): N18.32 - Chronic kidney disease, stage 3b Status: Chronic Assessment and Plan: * evidence of renal insufficiency/chronic kidney disease 2021 * creatinine seems to run around 1.3 - 1.7mg/dl * presumably due to hypertension, diabetes, and vascular disease (3) Hyperkalemia: Code(s): E87.5 - Hyperkalemia Status: Acute Assessment and Plan: * resolved * noted on admission and as an outpatient * s/p medical management with improvement * possible type IV RTA (common in diabetics)? * follow repeat K+ levels (4) Sepsis: Code(s): A41.9 - Sepsis, unspecified organism Status: Acute Assessment and Plan: * possibly due to pneumonia * CT scan on admission sugesstive of pneumonia and/or pulmonary edema * follow culture data * on empiric antibiotics * off vasopressor therapy (5) Acute hypoxic respiratory failure: Code(s): J96.01 - Acute respiratory failure with hypoxia Status: Acute Assessment and Plan: * felt to be secondary to combination of pneumonia and pulmonary edema in conjunction with cardiac arrest * IVFs on hold * antibiotics for pneumonia * continue ventilator support * weaning once more stable (6) Cardiac arrest: Code(s): I46.9 - Cardiac arrest, cause unspecified Status: Acute Assessment and Plan: * etiology not entirely clear: * pneumonia? * CHF? * hyperkalemia? * primary cardiac event? * trend of troponins (elevation could just be from cardiac arrest + CPR) * Echo results reviewed * Cardiology recommendations noted (7) Diabetes: Code(s): E11.9 - Type 2 diabetes mellitus without complications Status: Chronic Assessment and Plan: * follow accu-cheks * was on insulin gtt (noted DKA on admission) * transitioned to SQ insulin * glycemic control per junior business analyst/hospitalists Will continue to follow. Subjective Date/time seen: 11/30/23 10:01 Interval history: Follow-up for acute kidney injury/acute renal failure on chronic kidney disease. Tolerated dry ultrafiltration treatment yesterday with another 4L fluid removal; tolerating dialysis at the time of my visit (seen on HD at 9:50AM); stable hemodynamics noted but still having low grade fevers; remains intubated/sedated and on mechanical ventilation; some urine output noted (was previously anuric); no apparent distress noted. Exam Narrative: General: large WD/WN female intubated/sedated on mechanical ventilation Heart: normal S1 and S2; no rub Lungs: coarse breath sounds; decreased at bases Abdomen: soft, nontender, nondistended, positive bowel sounds Extremities: no cyanosis
[2023-11-30] MEDS: ALBUMIN HUMAN 25% 12.5 GM/50ML 100 ML 50 GM (10:04)
[2023-11-30] MEDS: EPOETIN ALFA-EPBX 10,000 UNITS/ML VIAL 10000 UNITS IV PUSH (10:59)
--- NOTE | 2023-11-30 11:24 | PCNFU ---
Nutrition Follow-Up Complete: Inadequate Oral Intake as related to mechanical ventilation as evidenced by NPO. Goal: Meet estimated nutritional needs. Patient is progressing towards goal. We will continue current goal. Pt current nutrition is Nepro at 40 ml/hr. Last recorded weight is 103.2 kg. Bowel Motility:+BM reported 11/30 Labs Reviewed:Glu 244, BUN 67,GFR 24, Cr 2.2 Meds Noted:Lantus, Protonix, Propofol 15 dmph=188 kcals, Reglan. Skin: WNL Additional Notes: Patient remains on mechanical vent. Tube feedings are being tolerated of Nepro at 40 ml/hr. Propofol remains at 15 [id number] kcals. Total Nutrition: 2014 kcals/111 gms/ 640 ml water. Dialysis today. Will monitor weight, labs, skin, meds, tube feeding tolerance every Sunday and Sunday.
[2023-11-30 11:39] LABS: Glucose Point of Care 135 mg/dl (65-105)
--- NOTE | 2023-11-30 11:49 | WPDINTPN ---
Progress Note: A&P Assessment and Plan (1) Acute hypoxic respiratory failure: Code(s): J96.01 - Acute respiratory failure with hypoxia Status: Acute Assessment and Plan: Acute hypoxic respiratory failure likely secondary to combination of pneumonia and pulmonary edema Hold further IV fluids -chest x-ray this morning: Moderate pulmonary edema pattern with small right pleural effusion -currently on 60% FiO2 and peep of 10. Wean FiO2 to maintain O2 sats greater than 92% -started dialysis on 11/26 -patient was dialyzed on 11/26, 11/27, 11/28, 11/29. Patient to get dialysis again today -Continue bronchodilators Sedated fentanyl and propofol infusions, will maintain RASS of 0 to -2. Daily sedation vacation for SAT and SBT (2) Sepsis: Code(s): A41.9 - Sepsis, unspecified organism Status: Acute Assessment and Plan: CT scan done on presentation showed patchy airspace opacities throughout the lungs consistent with pneumonia or pulmonary edema 11/23: Blood, sputum and urine cultures are negative -Continue empiric cefepime, status post 5 days of azithromycin Nasal MRSA was negative hence vancomycin discontinued in light of worsening renal function 11/29: Patient has been febrile of life with a T-max of 101.1, WBC count is still at 27.4 -11/29: blood, urine and sputum cultures pending (3) Shock: Code(s): R57.9 - Shock, unspecified Status: Acute Assessment and Plan: Multifactorial shock secondary to sepsis and cardiogenic Off levophed and vasopressin Off hydrocortisone Hold further IV fluids due to volume overload (4) DKA (diabetic ketoacidosis): Qualifiers: Diabetes mellitus complication detail: without coma Diabetes mellitus type: type 1 Qualified Code(s): E10.10 - Type 1 diabetes mellitus with ketoacidosis without coma Code(s): E11.10 - Type 2 diabetes mellitus with ketoacidosis without coma Status: Acute Assessment and Plan: Patient on presentation was in DKA and was started on IV insulin infusion. Her anion gap has closed and she has been transition to subcutaneous insulin. Blood glucose was elevated yesterday evening and patient was restarted on insulin infusion. 11/27: Off insulin infusion -increase Lantus to 75 units q.12h -continue Accu-Cheks and sliding scale insulin (5) Acute kidney injury superimposed on CKD: Code(s): N17.9 - Acute kidney failure, unspecified; N18.9 - Chronic kidney disease, unspecified Status: Acute Assessment and Plan: Patient has history of chronic kidney disease likely secondary to diabetes and hypertension and now presented with much elevated creatinine which is likely multifactorial and secondary to sepsis, hypoxia and cardiac arrest. She also received IV contrast for her CTA although that is probably not responsible for her JOHN PAUL -She has received fluids and now appears to be volume overloaded hence further fluids will be held -Potassium has normalized with treatment and will be monitored -CT scan of the abdomen did not show any hydronephrosis or stone -11/25 Renal ultrasound: IMPRESSION: No evidence of hydronephrosis of either kidney Left renal scarring and volume loss CK level was normal Nephrology is following -Her creatinine has further increased to 5.6 and urine output remains poor. She did not respond to Lasix -11/26: Dialysis catheter was placed and patient started on dialysis -patient got dialyzed on 11/26, 11/27, 11/28 Continue to monitor urine output electrolytes and creatinine (6) Hyperkalemia: Code(s): E87.5 - Hyperkalemia Status: Acute Assessment and Plan: Resolved Patient has been having mild hyperkalemia as an outpatient and now presented on admission with K which went up to 6.7, which was treated with medications. - Potassium level has now normalized. -Monitor and treat accordingly (7) Cardiac arrest: Code(s): I46.9 - Cardiac arrest, cause unspecif
--- NOTE | 2023-11-30 12:01 | PM.IMPN ---
Progress Note: A&P Assessment and Plan (1) Acute hypoxic respiratory failure: Code(s): J96.01 - Acute respiratory failure with hypoxia Status: Acute Assessment and Plan: Acute hypoxic respiratory failure likely secondary to combination of pneumonia and pulmonary edema On mechanical ventilation -chest x-ray this morning: Moderate pulmonary edema pattern with small right pleural effusion -currently on 60% FiO2 and peep of 10. Wean FiO2 to maintain O2 sats greater than 92% -started dialysis on 11/26 -patient was dialyzed on 11/26, 11/27, 11/28, 11/30 -Continue bronchodilators (2) Sepsis: Code(s): A41.9 - Sepsis, unspecified organism Status: Acute Assessment and Plan: CT scan done on presentation showed patchy airspace opacities throughout the lungs consistent with pneumonia or pulmonary edema 11/23: Blood, sputum and urine cultures are negative -Continue empiric cefepime, status post 5 days of azithromycin Nasal MRSA was negative hence vancomycin discontinued in light of worsening renal function Continue WBC elevation (3) Shock: Code(s): R57.9 - Shock, unspecified Status: Acute Assessment and Plan: Multifactorial shock secondary to sepsis and cardiogenic Off levophed and vasopressin Off hydrocortisone Hold further IV fluids due to volume overload (4) DKA (diabetic ketoacidosis): Qualifiers: Diabetes mellitus complication detail: without coma Diabetes mellitus type: type 1 Qualified Code(s): E10.10 - Type 1 diabetes mellitus with ketoacidosis without coma Code(s): E11.10 - Type 2 diabetes mellitus with ketoacidosis without coma Status: Acute Assessment and Plan: Patient on presentation was in DKA and was started on IV insulin infusion. Her anion gap has closed and she has been transition to subcutaneous insulin. Blood glucose was elevated yesterday evening and patient was restarted on insulin infusion. 11/27: Off insulin infusion -increase Lantus to 65 units q.12h -continue Accu-Cheks and sliding scale insulin (5) Acute kidney injury superimposed on CKD: Code(s): N17.9 - Acute kidney failure, unspecified; N18.9 - Chronic kidney disease, unspecified Status: Acute Assessment and Plan: Patient has history of chronic kidney disease likely secondary to diabetes and hypertension and now presented with much elevated creatinine which is likely multifactorial and secondary to sepsis, hypoxia and cardiac arrest. She also received IV contrast for her CTA although that is probably not responsible for her JOHN PAUL -She has received fluids and now appears to be volume overloaded hence further fluids will be held -Potassium has normalized with treatment and will be monitored -CT scan of the abdomen did not show any hydronephrosis or stone -11/25 Renal ultrasound: IMPRESSION: No evidence of hydronephrosis of either kidney Left renal scarring and volume loss CK level was normal Nephrology is following -Her creatinine has further increased to 5.6 and urine output remains poor. She did not respond to Lasix -11/26: Dialysis catheter was placed and patient started on dialysis -patient got dialyzed on 11/26, 11/27, 11/28 Continue to monitor urine output electrolytes and creatinine (6) Hyperkalemia: Code(s): E87.5 - Hyperkalemia Status: Acute Assessment and Plan: Resolved Patient has been having mild hyperkalemia as an outpatient and now presented on admission with K which went up to 6.7, which was treated with medications. - Potassium level has now normalized. -Monitor and treat accordingly (7) Cardiac arrest: Code(s): I46.9 - Cardiac arrest, cause unspecified Status: Acute Assessment and Plan: Patient had cardiac arrest with unknown clear etiology. Possible etiologies are respiratory failure from pneumonia and congestive heart failure and possibility of hyperkalemia leading to PEA -She received empiric tPA in
[2023-11-30] MEDS: PROPOFOL IV EMULSION 100 ML 10.24 MG IV CONT ×2 (13:59→22:21)
[2023-11-30] MEDS: ACETAMINOPHEN ELIXIR 325 MG/10.15 ML UDC 650 MG PO (15:05)
[2023-11-30 15:47] LABS: Glucose Point of Care 146 mg/dl (65-105)
[2023-11-30 20:50] LABS: Glucose Point of Care 254 mg/dl (65-105)
[2023-12-01] VITALS (44 sets, daily range): BP systolic 128–167; BP diastolic 52–74; PULSE 78–98; RESP 14–25; TEMP 37.4–38.4; O2SAT 90–98
[2023-12-01] MEDS: INSULIN ASPART (*BKC) 100 UNITS/ML SUB-Q ×6 (00:22→21:13)
[2023-12-01] MEDS: METOCLOPRAMIDE HCL INJ 10 MG/2 ML VIAL IV PUSH ×4 (00:23→17:54)
[2023-12-01 00:38] LABS: Glucose Point of Care 245 mg/dl (65-105)
[2023-12-01] MEDS: IPRATROPIUM BR 0.02% INH SOLN 0.5 MG/2.5 ML VIAL INHALATION ×4 (02:06→19:39)
[2023-12-01] MEDS: ALBUTEROL SULFATE NEB 2.5 MG/3 ML INH 5 MG INHALATION ×4 (02:06→19:39)
[2023-12-01 04:52] LABS: Glucose Point of Care 234 mg/dl (65-105)
[2023-12-01 05:06] LABS: Alveolar/Arterial O2 Gradient 254.7 mmHg; Base Excess ABG 2.6 mEq/l (+/-2.0); Carboxyhemoglobin 0.5 % THb (0-2.0); Device VENTILATOR; Fractional Inspired Oxygen 50 %; HCO3 ABG 26.3 mEq/l (22.0-26.0); Modified Allen's Test Pass; Oxygen Content ABG 12.8 %vol (16.0-22.0); Oxygen Saturation ABG 92.7 % (95.0-100.0); Oxyhemoglobin 90.8 % THb (90.0-100.0); PCO2 ABG 36.9 mmHg (35.0-45.0); PO2 ABG 60.3 mmHg (80.0-100.0); PO2 FiO2 Ratio Arterial Blood 1.21 %; Reduced Hemoglobin 8.7 %THb (0-5.0); Site Drawn RIGHT RADIAL
[2023-12-01 05:07] LABS: Arterial Blood Gas PEEP 10 cmH2O; Arterial Blood Gas Tidal Volume 400 ml; Arterial Blood Gas Vent Mode CMV; Arterial Blood Gas Ventilator rate 18 /MIN
[2023-12-01 05:41] LABS: Basophils Absolute Auto 0.1 K/mm3 (0.0-0.1); Basophils Percent Auto 0.5 % (0.2-1.2); Eosinophils Absolute Auto 0.7 K/mm3 (0-0.3); Eosinophils Percent Auto 2.4 % (0-4.4); Hematocrit 30.9 % (37.0-47.0); Hemoglobin 8.9 g/dL (12.0-15.0); Immature Granulocyte Absolute 1.45 K/mm3 (0.00-0.031); Immature Granulocyte Percent A 5.3 % (0-0.5); Lymphocytes Percent Auto 5.1 % (18.3-44.2); Mean Corpuscular HGB Conc 28.8 g/dl (32-36); Mean Corpuscular Volume 93.6 fl (80-100); Mean Platelet Volume 11.2 fl (7.4-10.4); Monocytes Absolute Auto 2.9 K/mm3 (0.1-0.6); Monocytes Percent Auto 10.6 % (2.6-8.5); Neutrophils Absolute Auto 20.8 K/mm3 (1.3-6.7); Neutrophils Percent Auto 76.1 % (45.5-73.1); Nucleated Red Blood Cells Absolute Auto 0.2 K/mm3 (0.0-0.012); Nucleated Red Blood Cells Perc 0.7 % (0.0-0.2); Platelet Count Result 301 k/mm3 (150-375); Red Cell Distribution Width 14.8 % (11.5-14.5); White Blood Count 27.3 K/mm3 (4.5-10.0)
[2023-12-01] MEDS: CENTRAL LINE FLUSH 10 ML IV PUSH ×3 (05:42→21:13)
[2023-12-01 05:49] LABS: INR 1.3; Prothrombin Time 16.5 Seconds (11.1-14.7)
[2023-12-01 05:50] LABS: Partial Thromboplastin Time 32.1 SECONDS (22.3-36.8)
[2023-12-01 06:16] LABS: Hypochromasia 1+ (NORMAL); Platelet Estimate Adequate (Adequate); Schistocytes None Seen (NORMAL)
[2023-12-01 06:17] LABS: Alanine Aminotransferase 267 U/L (6-35); Albumin Level 3.4 g/dL (3.5-5.1); Alkaline Phosphatase 229 U/L (38-126); Anion Gap 9 mmol/L (8-16); Aspartate Amino Transferase 48 U/L (14-36); Bilirubin,Total 0.9 mg/dL (0.2-1.3); Blood Urea Nitrogen 53 mg/dL (7-17); Calcium 8.9 mg/dL (8.4-10.2); Carbon Dioxide 28 mmol/L (22-30); Chloride 99 mmol/L (98-107); Estimated CRCL calculation 30 ml/min; Estimated Glomerular Filt Rate 21; Glucose 240 mg/dL (65-110); Magnesium 2.2 mg/dL (1.6-2.3); Phosphorus 3.1 mg/dL (2.5-4.5); Sodium 136 mmol/L (137-145); Triglycerides 141 mg/dL (<150)
[2023-12-01] MEDS: PROPOFOL IV EMULSION 100 ML 10.24 MG IV CONT (06:32)
[2023-12-01] MEDS: FENTANYL 2,500MCG/NS250ML(*CRX 2,500 MCG/250 ML BAG 7.5 MCG IV CONT (06:35)
[2023-12-01] MEDS: carvediloL 25 MG TABLET PO ×2 (08:36→21:13)
[2023-12-01] MEDS: amLODIPine BESYLATE 5 MG TABLET 10 MG PO (08:36)
[2023-12-01] MEDS: ASPIRIN 325 MG TABLET FEED TUBE (08:36)
[2023-12-01] MEDS: ENOXAPARIN 30 MG/0.3 ML SYRINGE SUB-Q (08:40)
[2023-12-01] MEDS: PANTOPRAZOLE SODIUM IV 40 MG VIAL IV PUSH ×2 (08:40→21:12)
[2023-12-01] MEDS: polyethylene glycoL 3350 17 GM POWD.PACK PO (08:40)
[2023-12-01] MEDS: MINERAL OIL/WHITE PETROLATUM OINTMENT 1 APPLIC EACH EYE ×2 (08:40→21:13)
[2023-12-01] MEDS: INSULIN GLARGINE (*BKC) 100 UNITS/ML 80 UNITS SUB-Q ×2 (08:51→21:13)
--- NOTE | 2023-12-01 09:11 | WPDINTPN ---
Progress Note: A&P Assessment and Plan (1) Acute hypoxic respiratory failure: Code(s): J96.01 - Acute respiratory failure with hypoxia Status: Acute Assessment and Plan: Acute hypoxic respiratory failure likely secondary to combination of pneumonia and pulmonary edema Hold further IV fluids -chest x-ray this morning: Moderate pulmonary edema pattern with small right pleural effusion -currently on 60% FiO2 and peep of 10. Wean FiO2 to maintain O2 sats greater than 92% -started dialysis on 11/26 -patient was dialyzed on 11/26, 11/27, 11/28, 11/29, 11/30. Patient to get dialysis again today -Continue bronchodilators Sedated fentanyl and propofol infusions, will maintain RASS of 0 to -2. Daily sedation vacation for SAT and SBT -will discontinue sedation, this patient pressure support ventilation -if needed patient will be started on Precedex infusion (2) Sepsis: Code(s): A41.9 - Sepsis, unspecified organism Status: Acute Assessment and Plan: CT scan done on presentation showed patchy airspace opacities throughout the lungs consistent with pneumonia or pulmonary edema 11/23: Blood, sputum and urine cultures are negative -Continue empiric cefepime, status post 5 days of azithromycin Nasal MRSA was negative hence vancomycin discontinued in light of worsening renal function -11/29: Patient has been febrile of life with a T-max of 101.1, WBC count is still at 27.4 -11/29: Preliminary blood cultures are negative x2 -11/29: Urine cultures negative -11/29: Sputum cultures growing yeast 12/01; T-max 101.2?, will check venous Dopplers, may have to do a CT scan of chest abdomen and pelvis (3) Shock: Code(s): R57.9 - Shock, unspecified Status: Acute Assessment and Plan: Multifactorial shock secondary to sepsis and cardiogenic Off levophed and vasopressin Off hydrocortisone Hold further IV fluids due to volume overload (4) DKA (diabetic ketoacidosis): Qualifiers: Diabetes mellitus type: type 1 Diabetes mellitus complication detail: without coma Qualified Code(s): E10.10 - Type 1 diabetes mellitus with ketoacidosis without coma Code(s): E11.10 - Type 2 diabetes mellitus with ketoacidosis without coma Status: Acute Assessment and Plan: Patient on presentation was in DKA and was started on IV insulin infusion. Her anion gap has closed and she has been transition to subcutaneous insulin. Blood glucose was elevated yesterday evening and patient was restarted on insulin infusion. 11/27: Off insulin infusion -remains hyperglycemic, will increase Lantus to 80 units q.12h -continue Accu-Cheks and sliding scale insulin (5) Acute kidney injury superimposed on CKD: Code(s): N17.9 - Acute kidney failure, unspecified; N18.9 - Chronic kidney disease, unspecified Status: Acute Assessment and Plan: Patient has history of chronic kidney disease likely secondary to diabetes and hypertension and now presented with much elevated creatinine which is likely multifactorial and secondary to sepsis, hypoxia and cardiac arrest. She also received IV contrast for her CTA although that is probably not responsible for her JOHN PAUL -She has received fluids and now appears to be volume overloaded hence further fluids will be held -Potassium has normalized with treatment and will be monitored -CT scan of the abdomen did not show any hydronephrosis or stone -11/25 Renal ultrasound: IMPRESSION: No evidence of hydronephrosis of either kidney Left renal scarring and volume loss CK level was normal Nephrology is following -Her creatinine has further increased to 5.6 and urine output remains poor. She did not respond to Lasix -11/26: Dialysis catheter was placed and patient started on dialysis Dialysis per Nephrology Continue to monitor urine output electrolytes and creatinine (6) Hyperkalemia: Code(s): E87.5 - Hyperkalemia Status: Acute Assessment and
[2023-12-01 09:58] LABS: Glucose Point of Care 246 mg/dl (65-105)
[2023-12-01 12:06] LABS: Glucose Point of Care 231 mg/dl (65-105)
[2023-12-01 16:29] LABS: Glucose Point of Care 243 mg/dl (65-105)
[2023-12-01 18:59] LABS: Glucose Point of Care 216 mg/dl (65-105)
[2023-12-01 20:34] LABS: Glucose Point of Care 215 mg/dl (65-105)
[2023-12-01 21:32] LABS: Glucose Point of Care 250 mg/dl (65-105)
--- NOTE | 2023-12-01 22:00 | P.PNNP_ITS ---
Progress Note: A&P Assessment and Plan (1) JOHN PAUL (acute kidney injury): Code(s): N17.9 - Acute kidney failure, unspecified Status: Acute Assessment and Plan: * multifactorial etiology: * cardiac arrest * hemodynamic instability * sepsis/infection * hypoxia * contrast exposure (CTA of chest on admission) * pre-renal factors * diuretic therapy prior to admission * s/p aggressive IVF resuscitation * evaluation to date: * CT scan of abdomen without obstruction * renal ultrasound left renal scarring and volume loss * CPK normal * urine electrolytes prerenal * urine eosinophils negative * moderate proteinuria * not making much urine even with diuretics. * HD will do tomorrow (2) Stage 3b chronic kidney disease: Code(s): N18.32 - Chronic kidney disease, stage 3b Status: Chronic Assessment and Plan: * evidence of renal insufficiency/chronic kidney disease 2021 * creatinine seems to run around 1.3 - 1.7mg/dl * presumably due to hypertension, diabetes, and vascular disease (3) Hyperkalemia: Code(s): E87.5 - Hyperkalemia Status: Acute Assessment and Plan: * resolved * noted on admission and as an outpatient * s/p medical management with improvement * possible type IV RTA (common in diabetics)? * follow repeat K+ levels (4) Sepsis: Code(s): A41.9 - Sepsis, unspecified organism Status: Acute Assessment and Plan: * possibly due to pneumonia * CT scan on admission sugesstive of pneumonia and/or pulmonary edema * follow culture data * on empiric antibiotics * off vasopressor therapy (5) Acute hypoxic respiratory failure: Code(s): J96.01 - Acute respiratory failure with hypoxia Status: Acute Assessment and Plan: * felt to be secondary to combination of pneumonia and pulmonary edema in conjunction with cardiac arrest * on diuretics (which aren't working) so will dialyze tomorrow. * antibiotics for pneumonia * continue ventilator support * weaning once more stable (6) Cardiac arrest: Code(s): I46.9 - Cardiac arrest, cause unspecified Status: Acute Assessment and Plan: * etiology not entirely clear: * pneumonia? * CHF? * hyperkalemia? * primary cardiac event? * trend of troponins (elevation could just be from cardiac arrest + CPR) * Echo results reviewed * Cardiology recommendations noted (7) Diabetes: Code(s): E11.9 - Type 2 diabetes mellitus without complications Status: Chronic Assessment and Plan: * follow accu-cheks * was on insulin gtt (noted DKA on admission) * transitioned to SQ insulin * glycemic control per bow maker custom/hospitalists Subjective Date/time seen: 12/01/23 22:00 Interval history: pt is on vent eyes open but doess't interact very well. Exam Narrative: General: large WD/WN female intubated/sedated on mechanical ventil ation Heart: normal S1 and S2; no rub Lungs: coarse breath sounds; decreased at bases Abdomen: soft, nontender, nondistended, positive bowel sounds Extremities: 1+ edema Skin: no rash Objective Data Vital Signs Vital Signs: Vital Signs - 24 hr 12/01/23 00:23 11/30/23 23:00 12/01/23 02:06 Temperature Pulse Rate 84 84 83 Respiratory Rate 18 18 Blood Pressure
--- NOTE | 2023-12-01 22:00 | PM.PNNEP ---
Progress Note: A&P Assessment and Plan (1) JOHN PAUL (acute kidney injury): Code(s): N17.9 - Acute kidney failure, unspecified Status: Acute Assessment and Plan: multifactorial etiology: cardiac arrest hemodynamic instability sepsis/infection hypoxia contrast exposure (CTA of chest on admission) pre-renal factors diuretic therapy prior to admission s/p aggressive IVF resuscitation evaluation to date: CT scan of abdomen without obstruction renal ultrasound left renal scarring and volume loss CPK normal urine electrolytes prerenal urine eosinophils negative moderate proteinuria not making much urine even with diuretics. HD will do tomorrow (2) Stage 3b chronic kidney disease: Code(s): N18.32 - Chronic kidney disease, stage 3b Status: Chronic Assessment and Plan: evidence of renal insufficiency/chronic kidney disease 2021 creatinine seems to run around 1.3 - 1.7mg/dl presumably due to hypertension, diabetes, and vascular disease (3) Hyperkalemia: Code(s): E87.5 - Hyperkalemia Status: Acute Assessment and Plan: resolved noted on admission and as an outpatient s/p medical management with improvement possible type IV RTA (common in diabetics)? follow repeat K+ levels (4) Sepsis: Code(s): A41.9 - Sepsis, unspecified organism Status: Acute Assessment and Plan: possibly due to pneumonia CT scan on admission sugesstive of pneumonia and/or pulmonary edema follow culture data on empiric antibiotics off vasopressor therapy (5) Acute hypoxic respiratory failure: Code(s): J96.01 - Acute respiratory failure with hypoxia Status: Acute Assessment and Plan: felt to be secondary to combination of pneumonia and pulmonary edema in conjunction with cardiac arrest on diuretics (which aren't working) so will dialyze tomorrow. antibiotics for pneumonia continue ventilator support weaning once more stable (6) Cardiac arrest: Code(s): I46.9 - Cardiac arrest, cause unspecified Status: Acute Assessment and Plan: etiology not entirely clear: pneumonia? CHF? hyperkalemia? primary cardiac event? trend of troponins (elevation could just be from cardiac arrest + CPR) Echo results reviewed Cardiology recommendations noted (7) Diabetes: Code(s): E11.9 - Type 2 diabetes mellitus without complications Status: Chronic Assessment and Plan: follow accu-cheks was on insulin gtt (noted DKA on admission) transitioned to SQ insulin glycemic control per preflight inspector/hospitalists Subjective Date/time seen: 12/01/23 22:00 Interval history: pt is on vent eyes open but doess't interact very well. Exam Narrative: General: large WD/WN female intubated/sedated on mechanical ventilation Heart: normal S1 and S2; no rub Lungs: coarse breath sounds; decreased at bases Abdomen: soft, nontender, nondistended, positive bowel sounds Extremities: 1+ edema Skin: no rash Objective Data Vital Signs Vital Signs: Vital Signs - 24 hr 12/01/23 00:23 11/30/23 23:00 12/01/23 02:06 Temperature Pulse Rate 84 84 83 Respiratory Rate 18 18 Blood Pressure Pulse Oximetry 94 Oxygen Delivery Mechanical Ventilation Fraction of Inspired Oxygen 50 12/01/23 02:07 12/01/23 02:12 12/01/23 00:00 Temperature Pulse Rate 83 83 83 Respiratory Rate 18 Blood Pressure Pulse Oximetry 92 Oxygen Delivery Mechanical Ventilation Fraction of Inspired Oxygen 50 12/01/23 00:00 12/01/23 00:00 11/30/23 22:01 Temperature 100.9 F H Pulse Rate 83 Respiratory Rate 18 Blood Pressure 131/52 L Pulse Oximetry 94 Oxygen Delivery Mechanical Ventilation Fraction of Inspired Oxygen 50 50 12/01/23 00:01 12/01/23 01:01 12/01/23 02:01 Temperature 100.9 F H 100.6 F H 100.9 F H Pulse Rate 84 85 83 Respirato
[2023-12-02] VITALS (50 sets, daily range): BP systolic 99–155; BP diastolic 51–68; PULSE 73–98; RESP 16–30; TEMP 36.1–38.7; O2SAT 91–98
[2023-12-02 00:57] LABS: Glucose Point of Care 265 mg/dl (65-105)
[2023-12-02] MEDS: INSULIN ASPART (*BKC) 100 UNITS/ML SUB-Q ×3 (00:58→20:05)
[2023-12-02] MEDS: IPRATROPIUM BR 0.02% INH SOLN 0.5 MG/2.5 ML VIAL INHALATION ×4 (02:30→19:48)
[2023-12-02] MEDS: ALBUTEROL SULFATE NEB 2.5 MG/3 ML INH 5 MG INHALATION ×4 (02:30→19:48)
[2023-12-02 04:54] LABS: Alveolar/Arterial O2 Gradient 340.9 mmHg; Base Excess ABG 0.4 mEq/l (+/-2.0); Carboxyhemoglobin 0.9 % THb (0-2.0); Fractional Inspired Oxygen 60 %; HCO3 ABG 22.9 mEq/l (22.0-26.0); Methemoglobin ABG 0.3 %THb (0-1.5); Oxygen Content ABG 12.6 %vol (16.0-22.0); Oxygen Saturation ABG 91.3 % (95.0-100.0); Oxyhemoglobin 88.4 % THb (90.0-100.0); PCO2 ABG 29.8 mmHg (35.0-45.0); PO2 ABG 54.1 mmHg (80.0-100.0); Reduced Hemoglobin 10.4 %THb (0-5.0); Total Hemoglobin 10.1 g/dL (12.0-18.0)
[2023-12-02 04:56] LABS: Site Drawn LEFT RADIAL
[2023-12-02 04:57] LABS: Device VENTILATOR; Modified Allen's Test Pass
[2023-12-02 04:58] LABS: Arterial Blood Gas PEEP 8 cmH2O; Arterial Blood Gas Tidal Volume 400 ml; Arterial Blood Gas Vent Mode CMV; Arterial Blood Gas Ventilator rate 16 /MIN
[2023-12-02 05:00] LABS: pH ABG 7.504 (7.350-7.450)
[2023-12-02 05:07] LABS: Glucose Point of Care 233 mg/dl (65-105)
[2023-12-02] MEDS: CENTRAL LINE FLUSH 10 ML IV PUSH ×3 (05:07→20:07)
[2023-12-02 05:28] LABS: Basophils Absolute Auto 0.1 K/mm3 (0.0-0.1); Basophils Percent Auto 0.4 % (0.2-1.2); Eosinophils Absolute Auto 0.3 K/mm3 (0-0.3); Hematocrit 29.9 % (37.0-47.0); Hemoglobin 9.2 g/dL (12.0-15.0); Immature Granulocyte Absolute 0.96 K/mm3 (0.00-0.031); Immature Granulocyte Percent A 3.2 % (0-0.5); Lymphocytes Absolute Auto 1.38 K/mm3 (0.9-3.2); Lymphocytes Percent Auto 4.6 % (18.3-44.2); Mean Corpuscular HGB Conc 30.8 g/dl (32-36); Mean Corpuscular Hemoglobin 27.9 pg (26-34); Mean Corpuscular Volume 90.6 fl (80-100); Mean Platelet Volume 10.9 fl (7.4-10.4); Monocytes Absolute Auto 2.6 K/mm3 (0.1-0.6); Monocytes Percent Auto 8.8 % (2.6-8.5); Neutrophils Absolute Auto 24.5 K/mm3 (1.3-6.7); Nucleated Red Blood Cells Absolute Auto 0.1 K/mm3 (0.0-0.012); Nucleated Red Blood Cells Perc 0.5 % (0.0-0.2); Platelet Count Result 334 k/mm3 (150-375); Red Cell Distribution Width 14.6 % (11.5-14.5); White Blood Count 29.9 K/mm3 (4.5-10.0)
[2023-12-02 05:47] LABS: INR 1.2; Prothrombin Time 15.8 Seconds (11.1-14.7)
[2023-12-02 05:48] LABS: Partial Thromboplastin Time 33.2 SECONDS (22.3-36.8)
[2023-12-02 05:54] LABS: Alanine Aminotransferase 192 U/L (6-35); Albumin Level 3.3 g/dL (3.5-5.1); Alkaline Phosphatase 231 U/L (38-126); Anion Gap 11 mmol/L (8-16); Aspartate Amino Transferase 40 U/L (14-36); Bilirubin,Total 0.9 mg/dL (0.2-1.3); Blood Urea Nitrogen 81 mg/dL (7-17); Calcium 9.1 mg/dL (8.4-10.2); Carbon Dioxide 26 mmol/L (22-30); Chloride 100 mmol/L (98-107); Estimated CRCL calculation 25 ml/min; Estimated Glomerular Filt Rate 16; Glucose 238 mg/dL (65-110); Magnesium 2.4 mg/dL (1.6-2.3); Phosphorus 3.7 mg/dL (2.5-4.5); Potassium 3.9 mmol/L (3.4-5.0); Sodium 137 mmol/L (137-145)
[2023-12-02 06:02] LABS: Platelet Estimate Adequate (Adequate)
[2023-12-02 06:03] LABS: Hypochromasia 1+ (NORMAL); Schistocytes None Seen (NORMAL)
[2023-12-02 08:32] LABS: Glucose Point of Care 168 mg/dl (65-105)
[2023-12-02] MEDS: PANTOPRAZOLE SODIUM IV 40 MG VIAL IV PUSH ×2 (08:42→20:07)
[2023-12-02] MEDS: carvediloL 25 MG TABLET PO ×2 (08:43→20:07)
[2023-12-02] MEDS: ENOXAPARIN 30 MG/0.3 ML SYRINGE SUB-Q (08:43)
[2023-12-02] MEDS: amLODIPine BESYLATE 5 MG TABLET 10 MG PO (08:44)
[2023-12-02] MEDS: ASPIRIN 325 MG TABLET FEED TUBE (08:45)
--- NOTE | 2023-12-02 08:46 | WPDINTPN ---
Progress Note: A&P Assessment and Plan (1) Acute hypoxic respiratory failure: Code(s): J96.01 - Acute respiratory failure with hypoxia Status: Acute Assessment and Plan: Acute hypoxic respiratory failure likely secondary to combination of pneumonia and pulmonary edema Hold further IV fluids -chest x-ray this morning: Moderate pulmonary edema pattern with small right pleural effusion -currently on 60% FiO2 and peep of 10. Wean FiO2 to maintain O2 sats greater than 92% -started dialysis on 11/26 -patient was dialyzed on 11/26, 11/27, 11/28, 11/29, 11/30. Patient to get dialysis again today -Continue bronchodilators 12/01: Sedation has been discontinued, -patient was placed on ASV mode yesterday and tolerated, 12/02 CT scan of the chest abdomen and pelvis, since patient has had fevers and elevated WBC count IMPRESSION: 1. Multifocal consolidation in the lungs, consistent with pneumonia. 2: Mediastinal lymphadenopathy, likely reactive. 12/02: CT scan of the brain in sinus without contrast IMPRESSION: 1. No acute intracranial abnormality. No evidence for significant sinus disease. (2) Sepsis: Code(s): A41.9 - Sepsis, unspecified organism Status: Acute Assessment and Plan: CT scan done on presentation showed patchy airspace opacities throughout the lungs consistent with pneumonia or pulmonary edema 11/23: Blood, sputum and urine cultures are negative -Continue empiric cefepime, status post 5 days of azithromycin Nasal MRSA was negative hence vancomycin discontinued in light of worsening renal function -11/29: Patient has been febrile of life with a T-max of 101.1, WBC count is still at 27.4 -11/29: Preliminary blood cultures are negative x2 -11/29: Urine cultures negative -11/29: Sputum cultures growing yeast 12/01; T-max 101.2?, will check venous Dopplers, may have to do a CT scan of chest abdomen and pelvis 12/02: T-max 100.8?, WBC count rising to 29.9, CT scan of the chest showed bilateral multifocal consolidation especially bilateral lower lobes, will start cefepime and vancomycin (3) Shock: Code(s): R57.9 - Shock, unspecified Status: Acute Assessment and Plan: RESOLVED Multifactorial shock secondary to sepsis and cardiogenic Off levophed and vasopressin Off hydrocortisone Hold further IV fluids due to volume overload (4) DKA (diabetic ketoacidosis): Qualifiers: Diabetes mellitus type: type 1 Diabetes mellitus complication detail: without coma Qualified Code(s): E10.10 - Type 1 diabetes mellitus with ketoacidosis without coma Code(s): E11.10 - Type 2 diabetes mellitus with ketoacidosis without coma Status: Acute Assessment and Plan: RESOLVED Patient on presentation was in DKA and was started on IV insulin infusion. Her anion gap has closed and she has been transition to subcutaneous insulin. Blood glucose was elevated yesterday evening and patient was restarted on insulin infusion. 11/27: Off insulin infusion -remains hyperglycemic, CONTINUE Lantus to 80 units q.12h -continue Accu-Cheks and sliding scale insulin (5) Acute kidney injury superimposed on CKD: Code(s): N17.9 - Acute kidney failure, unspecified; N18.9 - Chronic kidney disease, unspecified Status: Acute Assessment and Plan: Patient has history of chronic kidney disease likely secondary to diabetes and hypertension and now presented with much elevated creatinine which is likely multifactorial and secondary to sepsis, hypoxia and cardiac arrest. She also received IV contrast for her CTA although that is probably not responsible for her JOHN PUAL -She has received fluids and now appears to be volume overloaded hence further fluids will be held -Potassium has normalized with treatment and will be monitored -CT scan of the abdomen did not show any hydronephrosis or stone -11/25 Renal ultrasound: IMPRESSION: No evidence of hydronephrosis of either kidney Left renal sc
[2023-12-02] MEDS: MINERAL OIL/WHITE PETROLATUM OINTMENT 1 APPLIC EACH EYE ×2 (08:47→20:03)
[2023-12-02] MEDS: INSULIN GLARGINE (*BKC) 100 UNITS/ML 80 UNITS SUB-Q ×2 (08:49→20:04)
--- NOTE | 2023-12-02 11:51 | PC.NURSE ---
will hold iv antibiotics until dialysis is complete
[2023-12-02] MEDS: METOCLOPRAMIDE HCL INJ 10 MG/2 ML VIAL IV PUSH ×2 (12:10→18:09)
--- NOTE | 2023-12-02 12:11 | P.PNNP_ITS ---
Progress Note: A&P Assessment and Plan (1) JOHN PAUL (acute kidney injury): Code(s): N17.9 - Acute kidney failure, unspecified Status: Acute Assessment and Plan: * multifactorial etiology: * cardiac arrest * hemodynamic instability * sepsis/infection * hypoxia * contrast exposure (CTA of chest on admission) * pre-renal factors * diuretic therapy prior to admission * s/p aggressive IVF resuscitation * evaluation to date: * CT scan of abdomen without obstruction * renal ultrasound left renal scarring and volume loss * CPK normal * urine electrolytes prerenal * urine eosinophils negative * moderate proteinuria * Urine output only 600cc yesterday even with diuretics. * Will do a dialysis today. * Will remove about 2L, trying to keep up with what she had in. If her blood pressure does really well we could try for 3 (2) Stage 3b chronic kidney disease: Code(s): N18.32 - Chronic kidney disease, stage 3b Status: Chronic Assessment and Plan: * evidence of renal insufficiency/chronic kidney disease 2021 * creatinine seems to run around 1.3 - 1.7mg/dl * presumably due to hypertension, diabetes, and vascular disease (3) Hyperkalemia: Code(s): E87.5 - Hyperkalemia Status: Acute Assessment and Plan: * Potassium is doing okay. * With her low urine output most of the level of potassium is a result of intake versus dialysis. * Hopefully renal function will require at which point she can have more investigation into her potassium handling capabilities. (4) Sepsis: Code(s): A41.9 - Sepsis, unspecified organism Status: Acute Assessment and Plan: * possibly due to pneumonia * CT scan was repeated yesterday of the lungs head and sinuses. The only finding was multifocal consolidation of the lungs consistent with pneumonia and mediastinal lymphadenopathy, likely reactive. * White count still elevated, today it is 29.9. * on cefepime and vancomycin. * off vasopressor therapy (5) Acute hypoxic respiratory failure: Code(s): J96.01 - Acute respiratory failure with hypoxia Status: Acute Assessment and Plan: * felt to be secondary to combination of pneumonia and pulmonary edema in conjunction with cardiac arrest * Will get dialysis today to remove some fluid. * antibiotics for pneumonia * continue ventilator support * weaning once more stable (6) Cardiac arrest: Code(s): I46.9 - Cardiac arrest, cause unspecified Status: Acute Assessment and Plan: * etiology not entirely clear: * pneumonia? * CHF? * hyperkalemia? * primary cardiac event? * trend of troponins (elevation could just be from cardiac arrest + CPR) * Echo shows limited views but seems grossly normal * Cardiology on the case (7) Diabetes: Code(s): E11.9 - Type 2 diabetes mellitus without complications Status: Chronic Assessment and Plan: * follow accu-cheks * was on insulin gtt (noted DKA on admission) * transitioned to SQ insulin * glycemic control per major assembly inspector/hospitalists Subjective Date/time seen: 12/02/23 12:11 Interval history: Patient is resting in bed comfortably on the ventilator. Exam Narrative: General: large WD/WN female intubated/sedated on mechanical ventilation Heart: normal S1 and S2; no rub or gallop Lungs: coarse breath sounds; decreased at bases Abdomen: soft, nontender, nondistended, posit
--- NOTE | 2023-12-02 12:11 | PM.PNNEP ---
Progress Note: A&P Assessment and Plan (1) JOHN PAUL (acute kidney injury): Code(s): N17.9 - Acute kidney failure, unspecified Status: Acute Assessment and Plan: multifactorial etiology: cardiac arrest hemodynamic instability sepsis/infection hypoxia contrast exposure (CTA of chest on admission) pre-renal factors diuretic therapy prior to admission s/p aggressive IVF resuscitation evaluation to date: CT scan of abdomen without obstruction renal ultrasound left renal scarring and volume loss CPK normal urine electrolytes prerenal urine eosinophils negative moderate proteinuria Urine output only 600cc yesterday even with diuretics. Will do a dialysis today. Will remove about 2L, trying to keep up with what she had in. If her blood pressure does really well we could try for 3 (2) Stage 3b chronic kidney disease: Code(s): N18.32 - Chronic kidney disease, stage 3b Status: Chronic Assessment and Plan: evidence of renal insufficiency/chronic kidney disease 2021 creatinine seems to run around 1.3 - 1.7mg/dl presumably due to hypertension, diabetes, and vascular disease (3) Hyperkalemia: Code(s): E87.5 - Hyperkalemia Status: Acute Assessment and Plan: Potassium is doing okay. With her low urine output most of the level of potassium is a result of intake versus dialysis. Hopefully renal function will require at which point she can have more investigation into her potassium handling capabilities. (4) Sepsis: Code(s): A41.9 - Sepsis, unspecified organism Status: Acute Assessment and Plan: possibly due to pneumonia CT scan was repeated yesterday of the lungs head and sinuses. The only finding was multifocal consolidation of the lungs consistent with pneumonia and mediastinal lymphadenopathy, likely reactive. White count still elevated, today it is 29.9. on cefepime and vancomycin. off vasopressor therapy (5) Acute hypoxic respiratory failure: Code(s): J96.01 - Acute respiratory failure with hypoxia Status: Acute Assessment and Plan: felt to be secondary to combination of pneumonia and pulmonary edema in conjunction with cardiac arrest Will get dialysis today to remove some fluid. antibiotics for pneumonia continue ventilator support weaning once more stable (6) Cardiac arrest: Code(s): I46.9 - Cardiac arrest, cause unspecified Status: Acute Assessment and Plan: etiology not entirely clear: pneumonia? CHF? hyperkalemia? primary cardiac event? trend of troponins (elevation could just be from cardiac arrest + CPR) Echo shows limited views but seems grossly normal Cardiology on the case (7) Diabetes: Code(s): E11.9 - Type 2 diabetes mellitus without complications Status: Chronic Assessment and Plan: follow accu-jenniffer was on insulin gtt (noted DKA on admission) transitioned to SQ insulin glycemic control per pest control service sales agent/hospitalists Subjective Date/time seen: 12/02/23 12:11 Interval history: Patient is resting in bed comfortably on the ventilator. Exam Narrative: General: large WD/WN female intubated/sedated on mechanical ventilation Heart: normal S1 and S2; no rub or gallop Lungs: coarse breath sounds; decreased at bases Abdomen: soft, nontender, nondistended, positive bowel sounds Extremities: 1+ edema bilaterally Skin: no rash or subQ nodules Objective Data Vital Signs Vital Signs: Vital Signs - 24 hr 12/01/23 14:00 12/01/23 14:24 12/01/23 14:29 Temperature Pulse Rate 84 81 82 Respiratory Rate 16 Blood Pressure Pulse Oximetry 94 Oxygen Delivery Mechanical Ventilation Fraction of Inspired Oxygen 60 12/01/23 14:31 12/01/23 14:00 12/01/23 16:00 Temperature 99.6 F 99.8 F H Pulse Rate 83 83 83 Respiratory Rate 24 H 19 25 H Blood Pressure 145/56 H 147/55 H Pulse
[2023-12-02 12:17] LABS: Glucose Point of Care 198 mg/dl (65-105)
[2023-12-02] MEDS: SODIUM CHLORIDE 0.9% IV 1,000 ML 999 ML IV CONT (14:17)
--- NOTE | 2023-12-02 15:29 | PC.NURSE ---
notified of pt c/o sob, respirations at 40, 02 88%, given telephone order for 2mg versed and increased fi02, RT notified
[2023-12-02] MEDS: EPOETIN ALFA-EPBX 10,000 UNITS/ML VIAL 10000 UNITS IV PUSH (15:36)
--- NOTE | 2023-12-02 16:00 | PC.NURSE ---
work of breathing has returned to normal, resp rate of 22, 02 of 97%, pt is resting comfortably with no s/sx of distress, dialysis in progress, call light in reach
[2023-12-02 16:46] LABS: Glucose Point of Care 128 mg/dl (65-105)
[2023-12-02] MEDS: MIDAZOLAM HCL (*CRX) 2 MG/2 ML VIAL IV PUSH (17:07)
[2023-12-02] MEDS: VANCOMYCIN 1,250 MG/NS 250 ML 1,250 MG/250 ML BAG 166.67 MG IVPB (17:08)
[2023-12-02] MEDS: CEFEPIME 2 GM/NS 50 ML 2 GM/50 ML BAG IVPB (17:09)
[2023-12-02] MEDS: HEPARIN SODIUM 1,000 UNITS/ML VIAL 4000 UNITS (18:59)
[2023-12-02] MEDS: ACETAMINOPHEN ELIXIR 325 MG/10.15 ML UDC 650 MG PO (19:05)
[2023-12-02 19:58] LABS: Glucose Point of Care 281 mg/dl (65-105)
[2023-12-03] VITALS (52 sets, daily range): BP systolic 101–177; BP diastolic 55–78; PULSE 70–104; RESP 19–29; TEMP 0–38.3; O2SAT 94–98
[2023-12-03] MEDS: METOCLOPRAMIDE HCL INJ 10 MG/2 ML VIAL IV PUSH ×5 (00:12→23:56)
[2023-12-03 00:19] LABS: Glucose Point of Care 212 mg/dl (65-105)
[2023-12-03] MEDS: INSULIN ASPART (*BKC) 100 UNITS/ML SUB-Q ×4 (00:24→23:57)
[2023-12-03] MEDS: ACETAMINOPHEN ELIXIR 325 MG/10.15 ML UDC 650 MG PO ×2 (01:21→19:31)
[2023-12-03] MEDS: ALBUTEROL SULFATE NEB 2.5 MG/3 ML INH 5 MG INHALATION ×4 (02:06→20:09)
[2023-12-03] MEDS: IPRATROPIUM BR 0.02% INH SOLN 0.5 MG/2.5 ML VIAL INHALATION ×4 (02:06→20:09)
[2023-12-03 04:40] LABS: Basophils Absolute Auto 0.2 K/mm3 (0.0-0.1); Basophils Percent Auto 0.5 % (0.2-1.2); Eosinophils Absolute Auto 0.3 K/mm3 (0-0.3); Hematocrit 29.7 % (37.0-47.0); Hemoglobin 8.8 g/dL (12.0-15.0); Immature Granulocyte Absolute 1.08 K/mm3 (0.00-0.031); Immature Granulocyte Percent A 3.4 % (0-0.5); Lymphocytes Absolute Auto 1.24 K/mm3 (0.9-3.2); Lymphocytes Percent Auto 3.9 % (18.3-44.2); Mean Corpuscular HGB Conc 29.6 g/dl (32-36); Mean Corpuscular Hemoglobin 27.2 pg (26-34); Mean Platelet Volume 10.7 fl (7.4-10.4); Monocytes Absolute Auto 3.3 K/mm3 (0.1-0.6); Monocytes Percent Auto 10.4 % (2.6-8.5); Neutrophils Absolute Auto 25.5 K/mm3 (1.3-6.7); Neutrophils Percent Auto 80.8 % (45.5-73.1); Nucleated Red Blood Cells Absolute Auto 0.2 K/mm3 (0.0-0.012); Nucleated Red Blood Cells Perc 0.7 % (0.0-0.2); Platelet Count Result 335 k/mm3 (150-375); Red Blood Count 3.23 M/mm3 (4.2-5.4); Red Cell Distribution Width 14.5 % (11.5-14.5); White Blood Count 31.6 K/mm3 (4.5-10.0)
[2023-12-03 04:51] LABS: INR 1.2; Prothrombin Time 16.2 Seconds (11.1-14.7)
[2023-12-03 04:52] LABS: Partial Thromboplastin Time 30.8 SECONDS (22.3-36.8)
[2023-12-03 05:02] LABS: Platelet Estimate Adequate (Adequate)
[2023-12-03 05:03] LABS: Hypochromasia 1+ (NORMAL); Large Platelets Present; Vancomycin Random 20.1 ug/mL (10-20)
[2023-12-03 05:04] LABS: Anisocytosis 1+ (NORMAL); Schistocytes None Seen (NORMAL)
[2023-12-03 05:14] LABS: Alanine Aminotransferase 147 U/L (6-35); Albumin Level 3.1 g/dL (3.5-5.1); Alkaline Phosphatase 242 U/L (38-126); Anion Gap 10 mmol/L (8-16); Aspartate Amino Transferase 61 U/L (14-36); Bilirubin,Total 1.1 mg/dL (0.2-1.3); Blood Urea Nitrogen 63 mg/dL (7-17); Calcium 8.8 mg/dL (8.4-10.2); Carbon Dioxide 29 mmol/L (22-30); Chloride 100 mmol/L (98-107); Estimated CRCL calculation 33 ml/min; Estimated Glomerular Filt Rate 23; Glucose 191 mg/dL (65-110); Magnesium 2.2 mg/dL (1.6-2.3); Potassium 3.6 mmol/L (3.4-5.0); Sodium 139 mmol/L (137-145); Triglycerides 98 mg/dL (<150)
[2023-12-03 05:41] LABS: Alveolar/Arterial O2 Gradient 290.6 mmHg; Base Excess ABG 3.6 mEq/l (+/-2.0); Carboxyhemoglobin 0.6 % THb (0-2.0); Fractional Inspired Oxygen 55 %; Methemoglobin ABG 0.3 %THb (0-1.5); Oxygen Content ABG 13.2 %vol (16.0-22.0); Oxygen Saturation ABG 93.4 % (95.0-100.0); Oxyhemoglobin 91.1 % THb (90.0-100.0); PCO2 ABG 36.1 mmHg (35.0-45.0); PO2 ABG 61.4 mmHg (80.0-100.0); PO2 FiO2 Ratio Arterial Blood 1.12 %; Site Drawn RIGHT RADIAL; Total Hemoglobin 10.3 g/dL (12.0-18.0); pH ABG 7.491 (7.350-7.450)
[2023-12-03 05:42] LABS: Arterial Blood Gas PEEP 8 cmH2O; Arterial Blood Gas Tidal Volume 350 ml; Arterial Blood Gas Vent Mode CMV; Arterial Blood Gas Ventilator rate 14 /MIN; Device VENTILATOR; Modified Allen's Test Pass
[2023-12-03] MEDS: CENTRAL LINE FLUSH 10 ML IV PUSH ×3 (05:52→19:32)
[2023-12-03 07:42] LABS: Glucose Point of Care 170 mg/dl (65-105)
[2023-12-03] MEDS: metroNIDAZOLE 500 MG/ISO 100ML 500 MG/100 ML BAG 100 MG IVPB (07:49)
[2023-12-03] MEDS: dexmedeTOMIDine 400 MCG/100 ML 400 MCG/100 ML BAG 5.14 MCG IV CONT (07:50)
[2023-12-03] MEDS: ASPIRIN 325 MG TABLET FEED TUBE (07:59)
[2023-12-03] MEDS: amLODIPine BESYLATE 5 MG TABLET 10 MG PO (08:00)
[2023-12-03] MEDS: MINERAL OIL/WHITE PETROLATUM OINTMENT 1 APPLIC EACH EYE ×2 (08:00→19:32)
[2023-12-03] MEDS: carvediloL 25 MG TABLET PO ×2 (08:00→19:32)
[2023-12-03] MEDS: PANTOPRAZOLE SODIUM IV 40 MG VIAL IV PUSH ×2 (08:00→19:32)
[2023-12-03] MEDS: ENOXAPARIN 30 MG/0.3 ML SYRINGE SUB-Q (08:01)
[2023-12-03] MEDS: INSULIN GLARGINE (*BKC) 100 UNITS/ML 80 UNITS SUB-Q ×2 (08:03→19:36)
--- NOTE | 2023-12-03 08:07 | WPDINTPN ---
Progress Note: A&P Assessment and Plan (1) Acute hypoxic respiratory failure: Code(s): J96.01 - Acute respiratory failure with hypoxia Status: Acute Assessment and Plan: Acute hypoxic respiratory failure likely secondary to combination of pneumonia and pulmonary edema Hold further IV fluids -chest x-ray this morning: Moderate pulmonary edema pattern with small right pleural effusion -currently on 60% FiO2 and peep of 10. Wean FiO2 to maintain O2 sats greater than 92% -started dialysis on 11/26 -patient was dialyzed on 11/26, 11/27, 11/28, 11/29, 11/30, 12/02. -Continue bronchodilators 12/01: Sedation has been discontinued, -patient was placed on ASV mode yesterday tolerated only for an hour and had to be switched to CMV mode of ventilation as she was tachypneic and in respiratory distress -will start Precedex infusion as patient is anxious 12/02 CT scan of the chest abdomen and pelvis, since patient has had fevers and elevated WBC count IMPRESSION: 1. Multifocal consolidation in the lungs, consistent with pneumonia. 2: Mediastinal lymphadenopathy, likely reactive. 12/02: CT scan of the brain in sinus without contrast IMPRESSION: 1. No acute intracranial abnormality. No evidence for significant sinus disease. (2) Sepsis: Code(s): A41.9 - Sepsis, unspecified organism Status: Acute Assessment and Plan: CT scan done on presentation showed patchy airspace opacities throughout the lungs consistent with pneumonia or pulmonary edema 11/23: Blood, sputum and urine cultures are negative -Continue empiric cefepime, status post 5 days of azithromycin Nasal MRSA was negative hence vancomycin discontinued in light of worsening renal function -11/29: Patient has been febrile of life with a T-max of 101.1, WBC count is still at 27.4 -11/29: Preliminary blood cultures are negative x2 -11/29: Urine cultures negative -11/29: Sputum cultures growing yeast 12/01; T-max 101.2?, will check venous Dopplers, may have to do a CT scan of chest abdomen and pelvis 12/02: T-max 100.8?, WBC count rising to 29.9, CT scan of the chest showed bilateral multifocal consolidation especially bilateral lower lobes, restarted cefepime and vancomycin (12/02) (3) Shock: Code(s): R57.9 - Shock, unspecified Status: Acute Assessment and Plan: RESOLVED Multifactorial shock secondary to sepsis and cardiogenic Off levophed and vasopressin Off hydrocortisone Hold further IV fluids due to volume overload (4) DKA (diabetic ketoacidosis): Qualifiers: Diabetes mellitus type: type 1 Diabetes mellitus complication detail: without coma Qualified Code(s): E10.10 - Type 1 diabetes mellitus with ketoacidosis without coma Code(s): E11.10 - Type 2 diabetes mellitus with ketoacidosis without coma Status: Acute Assessment and Plan: RESOLVED Patient on presentation was in DKA and was started on IV insulin infusion. Her anion gap has closed and she has been transition to subcutaneous insulin. Blood glucose was elevated yesterday evening and patient was restarted on insulin infusion. 11/27: Off insulin infusion -CONTINUE Lantus 80 units q.12h -continue Accu-Cheks and sliding scale insulin (5) Acute kidney injury superimposed on CKD: Code(s): N17.9 - Acute kidney failure, unspecified; N18.9 - Chronic kidney disease, unspecified Status: Acute Assessment and Plan: Patient has history of chronic kidney disease likely secondary to diabetes and hypertension and now presented with much elevated creatinine which is likely multifactorial and secondary to sepsis, hypoxia and cardiac arrest. She also received IV contrast for her CTA although that is probably not responsible for her JOHN PAUL -She has received fluids and now appears to be volume overloaded hence further fluids will be held -Potassium has normalized with treatment and will be monitored -CT scan of the abdomen did not show any hydr
--- NOTE | 2023-12-03 09:32 | PC.NURSE ---
Spouse, Juanjo, updated on new visitor policy during dialysis. Verbalized understanding.
--- NOTE | 2023-12-03 10:23 | P.PNNP_ITS ---
Progress Note: A&P Assessment and Plan (1) JOHN PAUL (acute kidney injury): Code(s): N17.9 - Acute kidney failure, unspecified Status: Acute Assessment and Plan: * multifactorial etiology: * cardiac arrest * hemodynamic instability * sepsis/infection * hypoxia * contrast exposure (CTA of chest on admission) * pre-renal factors * diuretic therapy prior to admission * s/p aggressive IVF resuscitation * evaluation to date: * CT scan of abdomen without obstruction * renal ultrasound left renal scarring and volume loss * CPK normal * urine electrolytes prerenal * urine eosinophils negative * moderate proteinuria * better urine output noted * plan DUF today (2) Stage 3b chronic kidney disease: Code(s): N18.32 - Chronic kidney disease, stage 3b Status: Chronic Assessment and Plan: * evidence of renal insufficiency/chronic kidney disease 2021 * creatinine seems to run around 1.3 - 1.7mg/dl * presumably due to hypertension, diabetes, and vascular disease (3) Hyperkalemia: Code(s): E87.5 - Hyperkalemia Status: Acute Assessment and Plan: * potassium stable * follow trend (4) Sepsis: Code(s): A41.9 - Sepsis, unspecified organism Status: Acute Assessment and Plan: * suspect secondary to pneumonia based on imaging testing to date * white blood cell count still elevated * on antibiotics * off vasopressor therapy (5) Acute hypoxic respiratory failure: Code(s): J96.01 - Acute respiratory failure with hypoxia Status: Acute Assessment and Plan: * felt to be secondary to combination of pneumonia and pulmonary edema in conjunction with cardiac arrest * dialysis yesterday and DUF for more fluid removal * antibiotics for pneumonia * continue ventilator support * weaning once more stable (6) Cardiac arrest: Code(s): I46.9 - Cardiac arrest, cause unspecified Status: Acute Assessment and Plan: * etiology not entirely clear: * pneumonia? * CHF? * hyperkalemia? * primary cardiac event? * trend of troponins (elevation could just be from cardiac arrest + CPR) * Echo shows limited views but seems grossly normal * Cardiology following (7) Diabetes: Code(s): E11.9 - Type 2 diabetes mellitus without complications Status: Chronic Assessment and Plan: * follow accu-cheks * was on insulin gtt (noted DKA on admission) * transitioned to SQ insulin * glycemic control per framing mill supervisor/hospitalists Will continue to follow. Subjective Date/time seen: 12/03/23 10:23 Interval history: Follow-up for acute kidney injury/acute renal failure on chronic kidney disease. Chart reviewed since last seen; tolerating dry ultrafiltration treatment at the time of my visit (seen on DUF at 10:10AM); tolerated dialysis treatment yesterday as well; awake and alert with stable hemodynamics noted; remains intu bated and on mechanical ventilation; still with on/off fevers in the last 24 hours. Exam Narrative: General: large WD/WN female intubated on mechanical ventilation Heart: normal S1 and S2; no rub Lungs: coarse breath sounds; decreased at bases Abdomen: soft, nontender, nondistended, positive bowel sounds Extremities: 1+ edema bilaterally Skin: warm and dry Objective Data Vital Signs Vital Signs:
--- NOTE | 2023-12-03 10:23 | PM.PNNEP ---
Progress Note: A&P Assessment and Plan (1) JOHN PAUL (acute kidney injury): Code(s): N17.9 - Acute kidney failure, unspecified Status: Acute Assessment and Plan: multifactorial etiology: cardiac arrest hemodynamic instability sepsis/infection hypoxia contrast exposure (CTA of chest on admission) pre-renal factors diuretic therapy prior to admission s/p aggressive IVF resuscitation evaluation to date: CT scan of abdomen without obstruction renal ultrasound left renal scarring and volume loss CPK normal urine electrolytes prerenal urine eosinophils negative moderate proteinuria better urine output noted plan DUF today (2) Stage 3b chronic kidney disease: Code(s): N18.32 - Chronic kidney disease, stage 3b Status: Chronic Assessment and Plan: evidence of renal insufficiency/chronic kidney disease 2021 creatinine seems to run around 1.3 - 1.7mg/dl presumably due to hypertension, diabetes, and vascular disease (3) Hyperkalemia: Code(s): E87.5 - Hyperkalemia Status: Acute Assessment and Plan: potassium stable follow trend (4) Sepsis: Code(s): A41.9 - Sepsis, unspecified organism Status: Acute Assessment and Plan: suspect secondary to pneumonia based on imaging testing to date white blood cell count still elevated on antibiotics off vasopressor therapy (5) Acute hypoxic respiratory failure: Code(s): J96.01 - Acute respiratory failure with hypoxia Status: Acute Assessment and Plan: felt to be secondary to combination of pneumonia and pulmonary edema in conjunction with cardiac arrest dialysis yesterday and DUF for more fluid removal antibiotics for pneumonia continue ventilator support weaning once more stable (6) Cardiac arrest: Code(s): I46.9 - Cardiac arrest, cause unspecified Status: Acute Assessment and Plan: etiology not entirely clear: pneumonia? CHF? hyperkalemia? primary cardiac event? trend of troponins (elevation could just be from cardiac arrest + CPR) Echo shows limited views but seems grossly normal Cardiology following (7) Diabetes: Code(s): E11.9 - Type 2 diabetes mellitus without complications Status: Chronic Assessment and Plan: follow accu-cheks was on insulin gtt (noted DKA on admission) transitioned to SQ insulin glycemic control per storekeeper steward/hospitalists Will continue to follow. Subjective Date/time seen: 12/03/23 10:23 Interval history: Follow-up for acute kidney injury/acute renal failure on chronic kidney disease. Chart reviewed since last seen; tolerating dry ultrafiltration treatment at the time of my visit (seen on DUF at 10:10AM); tolerated dialysis treatment yesterday as well; awake and alert with stable hemodynamics noted; remains intubated and on mechanical ventilation; still with on/off fevers in the last 24 hours. Exam Narrative: General: large WD/WN female intubated on mechanical ventilation Heart: normal S1 and S2; no rub Lungs: coarse breath sounds; decreased at bases Abdomen: soft, nontender, nondistended, positive bowel sounds Extremities: 1+ edema bilaterally Skin: warm and dry Objective Data Vital Signs Vital Signs: Vital Signs Temp Pulse Resp BP Pulse Ox O2 Del Method FiO2 12/03/23 10:15 94 154/61 H 12/03/23 10:00 94 154/61 H 12/03/23 09:45 86 158/59 H 12/03/23 09:37 82 144/59 H 12/03/23 10:00 91 96 Mechanical Ventilation 55 12/03/23 09:00 55 12/03/23 10:00 93 12/03/23 08:56 100.7 F H 85 24 H 155/57 H 97 12/03/23 10:01 100.4 F H 93 28 H 154/61 H 97 12/03/23 08:00 55 12/03/23 08:00 96 Mechanical Ventilation 55 12/03/23 08:50 102 H 29 H 12/03/23 08:00 103 H 12/03/23 07:30 93 24 H 12/03/23 07:20 96 26 H
--- NOTE | 2023-12-03 10:56 | PCFNICU ---
ICU Rounding Note: Pt current nutrition is Nepro at 40 ml/hr with Prosource BID. Last recorded weight is 102.8 kg, down from 118.1 kg on admit. Bowel Motility: +BM reported 12/03 Labs Reviewed: Glu 191, Cr 2.3,BUN 63, GFR 23, Alb 3.1,Hgb 8.8,Hct 29.7 Meds Noted:Lantus, Protonix, Precedex, Meropenem, Levophed Skin: WNL Additional Notes: Patient remains on mechanical vent and tube feedings of Nepro at 40 ml/hr(1584 kcals/71/gms protein/6450 ml water). Tube feedings are being tolerated. Flush 30 ml q 4 hours. Protein Modular given BID for additional 160 kcals and 40 gms protein. Dialysis today. Agree with diet orders. Following daily in ICU rounds. Will monitor weight, labs, skin, meds, tube feeding tolerance every Sunday and Sunday.
[2023-12-03 11:52] LABS: Glucose Point of Care 166 mg/dl (65-105)
[2023-12-03] MEDS: MEROPENEM 500 MG in SODIUM CHLORIDE 0.9% IV 100 ML 200 ML IVPB (13:13)
[2023-12-03 16:46] LABS: Glucose Point of Care 305 mg/dl (65-105)
[2023-12-03] MEDS: dexmedeTOMIDine 400 MCG/100 ML 400 MCG/100 ML BAG 10.28 MCG IV CONT (17:11)
[2023-12-03] MEDS: VANCOMYCIN 750 MG/NS 250 ML 750 MG/250 ML BAG 250 MG IVPB (17:12)
[2023-12-03 19:41] LABS: Glucose Point of Care 371 mg/dl (65-105)
[2023-12-03 23:57] LABS: Glucose Point of Care 286 mg/dl (65-105)
[2023-12-04] VITALS (56 sets, daily range): BP systolic 68–157; BP diastolic 48–81; PULSE 62–99; RESP 19–36; TEMP 36.4–37.7; O2SAT 91–98
[2023-12-04] MEDS: ALBUTEROL SULFATE NEB 2.5 MG/3 ML INH 5 MG INHALATION ×4 (01:43→20:27)
[2023-12-04] MEDS: IPRATROPIUM BR 0.02% INH SOLN 0.5 MG/2.5 ML VIAL INHALATION ×4 (01:43→20:27)
[2023-12-04] MEDS: dexmedeTOMIDine 400 MCG/100 ML 400 MCG/100 ML BAG 12.85 MCG IV CONT (02:37)
[2023-12-04] MEDS: CENTRAL LINE FLUSH 10 ML IV PUSH ×3 (05:05→23:49)
[2023-12-04] MEDS: METOCLOPRAMIDE HCL INJ 10 MG/2 ML VIAL IV PUSH ×4 (05:05→23:49)
[2023-12-04 05:19] LABS: Base Excess ABG -1.4 mEq/l (+/-2.0); Carboxyhemoglobin 0.8 % THb (0-2.0); Device VENTILATOR; Fractional Inspired Oxygen 45 %; HCO3 ABG 21.9 mEq/l (22.0-26.0); Methemoglobin ABG 0.3 %THb (0-1.5); Modified Allen's Test Pass; Oxygen Content ABG 13.7 %vol (16.0-22.0); Oxygen Saturation ABG 94.9 % (95.0-100.0); Oxyhemoglobin 92.4 % THb (90.0-100.0); PCO2 ABG 31.6 mmHg (35.0-45.0); PO2 ABG 68.9 mmHg (80.0-100.0); PO2 FiO2 Ratio Arterial Blood 1.53 %; Reduced Hemoglobin 6.5 %THb (0-5.0); Site Drawn RIGHT RADIAL; Total Hemoglobin 10.5 g/dL (12.0-18.0); pH ABG 7.458 (7.350-7.450)
[2023-12-04 05:20] LABS: Arterial Blood Gas PEEP 8 cmH2O; Arterial Blood Gas Tidal Volume 350 ml; Arterial Blood Gas Vent Mode CMV; Arterial Blood Gas Ventilator rate 14 /MIN
[2023-12-04 05:27] LABS: Hematocrit 31.4 % (37.0-47.0); Hemoglobin 9.4 g/dL (12.0-15.0); Mean Corpuscular HGB Conc 29.9 g/dl (32-36); Mean Corpuscular Volume 90.2 fl (80-100); Platelet Count Result 401 k/mm3 (150-375); Red Blood Count 3.48 M/mm3 (4.2-5.4); Red Cell Distribution Width 14.6 % (11.5-14.5); White Blood Count 40.4 K/mm3 (4.5-10.0)
[2023-12-04 05:40] LABS: INR 1.4; Partial Thromboplastin Time 29.2 SECONDS (22.3-36.8); Prothrombin Time 17.7 Seconds (11.1-14.7)
[2023-12-04 06:01] LABS: Alanine Aminotransferase 121 U/L (6-35); Albumin Level 3.4 g/dL (3.5-5.1); Alkaline Phosphatase 278 U/L (38-126); Anion Gap 12 mmol/L (8-16); Aspartate Amino Transferase 42 U/L (14-36); Bilirubin,Total 0.9 mg/dL (0.2-1.3); Blood Urea Nitrogen 113 mg/dL (7-17); Calcium 9.8 mg/dL (8.4-10.2); Carbon Dioxide 26 mmol/L (22-30); Chloride 96 mmol/L (98-107); Estimated CRCL calculation 18 ml/min; Estimated Glomerular Filt Rate 12; Glucose 179 mg/dL (65-110); Magnesium 2.6 mg/dL (1.6-2.3); Phosphorus 4.7 mg/dL (2.5-4.5); Potassium 3.8 mmol/L (3.4-5.0); Sodium 134 mmol/L (137-145)
[2023-12-04 06:34] LABS: Eosinophils Percent Manual 2 % (0-4); Monocytes Absolute Manual 2.02 K/mm3 (0.1-0.90); Monocytes Percent Manual 5 % (3-9); Neutrophils Percent Manual 92 % (46-73); Schistocytes None Seen (NORMAL); Total Cells Counted 100
--- NOTE | 2023-12-04 09:10 | WPDINTPN ---
Progress Note: A&P Assessment and Plan (1) Acute hypoxic respiratory failure: Code(s): J96.01 - Acute respiratory failure with hypoxia Status: Acute Assessment and Plan: Acute hypoxic respiratory failure likely secondary to combination of pneumonia and pulmonary edema Chest x-ray and ABG reviewed -chest x-ray this morning: Moderate pulmonary edema pattern with small right pleural effusion -currently on 45 % FiO2 and peep of 8. Decrease tidal volume to 320 -continue dialysis to remove fluid -Continue bronchodilators -continue Precedex infusion -I placed patient on PSV today but patient had high RSBI and high respiratory rate. Pressure support was increased to 16/8 to get adequate RSBI. I will continue as tolerated and try to wean down pressure support -patient has been on mechanical ventilation for close to 12 days and if does not improve or shows signs of weaning may need tracheostomy for prolonged wean -discussed with nephrology will plan to dialyze again today -continue antibiotics for pneumonia as below 12/02 CT scan of the chest abdomen and pelvis, since patient has had fevers and elevated WBC count IMPRESSION: 1. Multifocal consolidation in the lungs, consistent with pneumonia. 2: Mediastinal lymphadenopathy, likely reactive. 12/02: CT scan of the brain in sinus without contrast IMPRESSION: 1. No acute intracranial abnormality. No evidence for significant sinus disease. (2) Sepsis: Code(s): A41.9 - Sepsis, unspecified organism Status: Acute Assessment and Plan: CT scan done on presentation showed patchy airspace opacities throughout the lungs consistent with pneumonia or pulmonary edema 11/23: Blood, sputum and urine cultures are negative -Continue empiric cefepime, status post 5 days of azithromycin Nasal MRSA was negative hence vancomycin discontinued in light of worsening renal function -11/29: Patient has been febrile of life with a T-max of 101.1, WBC count is still at 27.4 -11/29: Preliminary blood cultures are negative x2 -11/29: Urine cultures negative -11/29: Sputum cultures growing yeast 12/01; T-max 101.2?, negative venous Dopplers, may have to do a CT scan of chest abdomen and pelvis 12/02: T-max 100.8?, WBC count rising to 29.9, CT scan of the chest showed bilateral multifocal consolidation especially bilateral lower lobes, restarted cefepime and vancomycin (12/02) Continue antibiotics and is afebrile although WBC count is still elevated (3) Shock: Code(s): R57.9 - Shock, unspecified Status: Acute Assessment and Plan: RESOLVED Multifactorial shock secondary to sepsis and cardiogenic Off levophed and vasopressin Off hydrocortisone Hold further IV fluids due to volume overload (4) DKA (diabetic ketoacidosis): Qualifiers: Diabetes mellitus type: type 1 Diabetes mellitus complication detail: without coma Qualified Code(s): E10.10 - Type 1 diabetes mellitus with ketoacidosis without coma Code(s): E11.10 - Type 2 diabetes mellitus with ketoacidosis without coma Status: Acute Assessment and Plan: RESOLVED Patient on presentation was in DKA and was started on IV insulin infusion. Her anion gap has closed and she has been transition to subcutaneous insulin. Blood glucose was elevated yesterday evening and patient was restarted on insulin infusion. 11/27: Off insulin infusion -CONTINUE Lantus 80 units q.12h -continue Accu-Cheks and sliding scale insulin q.4 hours (5) Acute kidney injury superimposed on CKD: Code(s): N17.9 - Acute kidney failure, unspecified; N18.9 - Chronic kidney disease, unspecified Status: Acute Assessment and Plan: Patient has history of chronic kidney disease likely secondary to diabetes and hypertension and now presented with much elevated creatinine which is likely multifactorial and secondary to sepsis, hypoxia and cardiac arrest. She also received IV contrast for her CTA although parul
[2023-12-04] MEDS: dexmedeTOMIDine 400 MCG/100 ML 400 MCG/100 ML BAG 15.42 MCG IV CONT (09:18)
[2023-12-04] MEDS: amLODIPine BESYLATE 5 MG TABLET 10 MG PO (09:19)
[2023-12-04] MEDS: ASPIRIN 325 MG TABLET FEED TUBE (09:19)
[2023-12-04] MEDS: ENOXAPARIN 30 MG/0.3 ML SYRINGE SUB-Q (09:20)
[2023-12-04] MEDS: carvediloL 25 MG TABLET PO ×2 (09:20→20:00)
[2023-12-04] MEDS: INSULIN GLARGINE (*BKC) 100 UNITS/ML 80 UNITS SUB-Q ×2 (09:20→20:01)
[2023-12-04] MEDS: MINERAL OIL/WHITE PETROLATUM OINTMENT 1 APPLIC EACH EYE ×2 (09:20→20:02)
[2023-12-04] MEDS: PANTOPRAZOLE SODIUM IV 40 MG VIAL IV PUSH ×2 (09:21→20:03)
[2023-12-04] MEDS: ACETAMINOPHEN ELIXIR 325 MG/10.15 ML UDC 650 MG PO (09:27)
--- NOTE | 2023-12-04 10:01 | P.PNNP_ITS ---
Progress Note: A&P Assessment and Plan (1) JOHN PAUL (acute kidney injury): Code(s): N17.9 - Acute kidney failure, unspecified Status: Acute Assessment and Plan: * multifactorial etiology: * cardiac arrest * hemodynamic instability * sepsis/infection * hypoxia * contrast exposure (CTA of chest on admission) * pre-renal factors * diuretic therapy prior to admission * s/p aggressive IVF resuscitation * evaluation to date: * CT scan of abdomen without obstruction * renal ultrasound left renal scarring and volume loss * CPK normal * urine electrolytes prerenal * urine eosinophils negative * moderate proteinuria * DUF yesterday * plan HD today * continue to follow trend of labs and UOP for potential recovery (2) Stage 3b chronic kidney disease: Code(s): N18.32 - Chronic kidney disease, stage 3b Status: Chronic Assessment and Plan: * evidence of renal insufficiency/chronic kidney disease 2021 * creatinine seems to run around 1.3 - 1.7mg/dl * presumably due to hypertension, diabetes, and vascular disease (3) Hyperkalemia: Code(s): E87.5 - Hyperkalemia Status: Acute Assessment and Plan: * potassium stable * follow trend (4) Sepsis: Code(s): A41.9 - Sepsis, unspecified organism Status: Acute Assessment and Plan: * suspect secondary to pneumonia based on imaging testing to date * white blood cell count still elevated * on antibiotics * off vasopressor therapy (5) Acute hypoxic respiratory failure: Code(s): J96.01 - Acute respiratory failure with hypoxia Status: Acute Assessment and Plan: * felt to be secondary to combination of pneumonia and pulmonary edema in conjunction with cardiac arrest * dialysis yesterday and DUF for more fluid removal * antibiotics for pneumonia * continue ventilator support * weaning once more stable (6) Cardiac arrest: Code(s): I46.9 - Cardiac arrest, cause unspecified Status: Acute Assessment and Plan: * etiology not entirely clear: * pneumonia? * CHF? * hyperkalemia? * primary cardiac event? * trend of troponins (elevation could just be from cardiac arrest + CPR) * Echo shows limited views but seems grossly normal * Cardiology following (7) Diabetes: Code(s): E11.9 - Type 2 diabetes mellitus without complications Status: Chronic Assessment and Plan: * follow accu-cheks * was on insulin gtt (noted DKA on admission) * transitioned to SQ insulin * glycemic control per research engineer marine equipment/hospitalists Will continue to follow. Subjective Date/time seen: 12/04/23 10:01 Interval history: Follow-up for acute kidney injury/acute renal failure on chronic kidney disease. Tolerated dry ultrafiltration treatment yesterday, stable hemodynamics noted and remains intubated and on mechanical ventilation; continues to have high WBC and AM labs notable for significant rise in BUN; plan for dialysis treatment later today Exam Narrative: General: large WD/WN female intubated on mechanical ventilation Heart: normal S1 and S2; no rub Lungs: coarse breath sounds; decreased at bases Abdomen: soft, nontender, nondistended, positive bowel sounds Extremities: 1+ edema bilaterally Skin: warm and intact Objective Data Vital Signs Vital Signs: Vi
--- NOTE | 2023-12-04 10:01 | PM.PNNEP ---
Progress Note: A&P Assessment and Plan (1) JOHN PAUL (acute kidney injury): Code(s): N17.9 - Acute kidney failure, unspecified Status: Acute Assessment and Plan: multifactorial etiology: cardiac arrest hemodynamic instability sepsis/infection hypoxia contrast exposure (CTA of chest on admission) pre-renal factors diuretic therapy prior to admission s/p aggressive IVF resuscitation evaluation to date: CT scan of abdomen without obstruction renal ultrasound left renal scarring and volume loss CPK normal urine electrolytes prerenal urine eosinophils negative moderate proteinuria DUF yesterday plan HD today continue to follow trend of labs and UOP for potential recovery (2) Stage 3b chronic kidney disease: Code(s): N18.32 - Chronic kidney disease, stage 3b Status: Chronic Assessment and Plan: evidence of renal insufficiency/chronic kidney disease 2021 creatinine seems to run around 1.3 - 1.7mg/dl presumably due to hypertension, diabetes, and vascular disease (3) Hyperkalemia: Code(s): E87.5 - Hyperkalemia Status: Acute Assessment and Plan: potassium stable follow trend (4) Sepsis: Code(s): A41.9 - Sepsis, unspecified organism Status: Acute Assessment and Plan: suspect secondary to pneumonia based on imaging testing to date white blood cell count still elevated on antibiotics off vasopressor therapy (5) Acute hypoxic respiratory failure: Code(s): J96.01 - Acute respiratory failure with hypoxia Status: Acute Assessment and Plan: felt to be secondary to combination of pneumonia and pulmonary edema in conjunction with cardiac arrest dialysis yesterday and DUF for more fluid removal antibiotics for pneumonia continue ventilator support weaning once more stable (6) Cardiac arrest: Code(s): I46.9 - Cardiac arrest, cause unspecified Status: Acute Assessment and Plan: etiology not entirely clear: pneumonia? CHF? hyperkalemia? primary cardiac event? trend of troponins (elevation could just be from cardiac arrest + CPR) Echo shows limited views but seems grossly normal Cardiology following (7) Diabetes: Code(s): E11.9 - Type 2 diabetes mellitus without complications Status: Chronic Assessment and Plan: follow accu-cheks was on insulin gtt (noted DKA on admission) transitioned to SQ insulin glycemic control per automatic door mechanic/hospitalists Will continue to follow. Subjective Date/time seen: 12/04/23 10:01 Interval history: Follow-up for acute kidney injury/acute renal failure on chronic kidney disease. Tolerated dry ultrafiltration treatment yesterday, stable hemodynamics noted and remains intubated and on mechanical ventilation; continues to have high WBC and AM labs notable for significant rise in BUN; plan for dialysis treatment later today Exam Narrative: General: large WD/WN female intubated on mechanical ventilation Heart: normal S1 and S2; no rub Lungs: coarse breath sounds; decreased at bases Abdomen: soft, nontender, nondistended, positive bowel sounds Extremities: 1+ edema bilaterally Skin: warm and intact Objective Data Vital Signs Vital Signs: Vital Signs Temp Pulse Resp BP Pulse Ox O2 Del Method FiO2 12/04/23 10:00 99.8 F H 74 19 140/59 L 94 12/04/23 08:00 100 F H 85 22 H 157/61 H 95 12/04/23 08:00 40 12/04/23 08:00 85 12/04/23 09:27 99.9 F H 12/04/23 09:20 80 12/04/23 09:18 81 29 H 12/04/23 09:18 81 29 H 12/04/23 07:30 87 25 H 12/04/23 07:20 82 29 H 12/04/23 07:20 82 95 Mechanical Ventilation 40 12/04/23 04:47 82 95 Mechanical Ventilation 45 12/04/23 06:00 99.3 F 85 28 H 155/60 H 95 12/04/23 06:00 85 12/04/23 04:00 93 12/04/23 04:00 98.7 F 81 26
--- NOTE | 2023-12-04 10:52 | PCNFU ---
Nutrition Follow-Up Complete: Inadequate Oral Intake as related to mechanical ventilation as evidenced by NPO. Goal: Meet estimated nutritional needs. Patient is progressing towards goal. We will continue current goal. Pt current nutrition is Nepro at 40 ml/hr with Prosource BID. Last recorded weight is 100.1 kg, down from 118.1 kg on admit. Dialysis patient. Bowel Motility:+BM reported 12/04 Labs Reviewed:Glu 179, BUN 113, GFR 12, Cr 4.10,Alb 3.4 Meds Noted:Lantus, Precedex, Protonix, Reglan, Lovenox, Coreg Skin: WNL Additional Notes: Patient remains on mechanical vent. Tube feedings of Nepro at 40ml/hr and tolerating. Flush 30 ml q 4 hours. Total Nutrition: 1744 kcals/111 gms protein/640 ml water. Meeting 98% kcal needs at 15 kcal/kg and 78% protein needs at 1.2-1.4 kcal/kg. Dialysis today. Agree with diet orders. Will monitor weight, labs, skin, meds, tube feeding tolerance every Sunday and Sunday.
[2023-12-04 11:39] LABS: Glucose Point of Care 204 mg/dl (65-105)
[2023-12-04] MEDS: INSULIN ASPART (*BKC) 100 UNITS/ML SUB-Q (11:45)
[2023-12-04 13:20] LABS: Vancomycin Random 23.3 ug/mL (10-20)
[2023-12-04] MEDS: dexmedeTOMIDine 400 MCG/100 ML 400 MCG/100 ML BAG 25.7 MCG IV CONT ×3 (14:15→22:43)
[2023-12-04] MEDS: MIDAZOLAM HCL (*CRX) 2 MG/2 ML VIAL IV PUSH (14:18)
[2023-12-04] MEDS: PROPOFOL IV EMULSION 100 ML 12.01 MG IV CONT (14:35)
[2023-12-04] MEDS: MIDAZOLAM HCL (*CRX) 2 MG/2 ML VIAL 4 MG IV PUSH (14:40)
[2023-12-04] MEDS: ROCURONIUM BROMIDE 50 MG/5 ML VIAL IV PUSH (14:45)
[2023-12-04] MEDS: NOREPINEPHRINE 8 MG/D5W 250 ML 8 MG/250 ML BAG 9.38 MG IV CONT (14:45)
--- NOTE | 2023-12-04 14:57 | PM.EVENT ---
Event Note Event Note Event Note: Patient was on dialysis and mechanical ventilation and patient had episode where she desaturated. On exam patient is tachypneic a synchronous with ventilator with low saturation. She had equal breath sounds pressures were not high on the ventilator. Patient was given some Versed which was in adequate and later started on propofol. Patient was also to ventilated with Ambu bag and peep valve. Patient was easy to bag. Chest x-ray confirmed good position of ET tube and no pneumothorax. Patient was started on propofol. Additional sedation led to drop in blood pressure and patient was started on Levophed at low-dose. Patient was given 50 mg of rocuronium. Tidal volume and respiratory rate was increased on the ventilator. I spoke to dialysis nurse and decided not to do any ultrafiltration. Will also check CTA chest to rule out any pulmonary embolism although patient did had venous Doppler study done on 12/01 which was negative for DVT. I will also check an ABG.
[2023-12-04 15:23] LABS: Alveolar/Arterial O2 Gradient 605.9 mmHg; Base Excess ABG 2.9 mEq/l (+/-2.0); Fractional Inspired Oxygen 100 %; HCO3 ABG 26.2 mEq/l (22.0-26.0); Oxygen Content ABG 13.8 %vol (16.0-22.0); Oxygen Saturation ABG 95.6 % (95.0-100.0); Oxyhemoglobin 93.6 % THb (90.0-100.0); PCO2 ABG 35.4 mmHg (35.0-45.0); PO2 ABG 71.7 mmHg (80.0-100.0); PO2 FiO2 Ratio Arterial Blood 0.72 %; Total Hemoglobin 10.4 g/dL (12.0-18.0); pH ABG 7.487 (7.350-7.450)
[2023-12-04 15:24] LABS: Arterial Blood Gas Ventilator rate 16 /MIN; Device VENTILATOR; Modified Allen's Test Pass; Site Drawn LEFT RADIAL
[2023-12-04 15:25] LABS: Arterial Blood Gas PEEP 15 cmH2O; Arterial Blood Gas Tidal Volume 350 ml; Arterial Blood Gas Vent Mode CMV
[2023-12-04 15:39] LABS: Glucose Point of Care 115 mg/dl (65-105)
[2023-12-04] MEDS: EPOETIN ALFA-EPBX 10,000 UNITS/ML VIAL 10000 UNITS IV PUSH (15:49)
[2023-12-04] MEDS: HEPARIN SODIUM 1,000 UNITS/ML VIAL 4000 UNITS (17:04)
[2023-12-04] MEDS: MEROPENEM 500 MG in SODIUM CHLORIDE 0.9% IV 100 ML 200 ML IVPB (18:19)
[2023-12-04] MEDS: VANCOMYCIN 750 MG/NS 250 ML 750 MG/250 ML BAG 250 MG IVPB (18:58)
[2023-12-04] MEDS: PROPOFOL IV EMULSION 100 ML 9.01 MG IV CONT (20:08)
[2023-12-04 20:28] LABS: Glucose Point of Care 142 mg/dl (65-105)
[2023-12-05] VITALS (65 sets, daily range): BP systolic 92–144; BP diastolic 48–72; PULSE 69–89; RESP 17–33; TEMP 36.6–38.3; O2SAT 91–100
[2023-12-05 00:49] LABS: Glucose Point of Care 198 mg/dl (65-105)
[2023-12-05] MEDS: dexmedeTOMIDine 400 MCG/100 ML 400 MCG/100 ML BAG 25.7 MCG IV CONT ×5 (02:34→21:42)
[2023-12-05] MEDS: IPRATROPIUM BR 0.02% INH SOLN 0.5 MG/2.5 ML VIAL INHALATION ×4 (02:45→20:59)
[2023-12-05] MEDS: ALBUTEROL SULFATE NEB 2.5 MG/3 ML INH 5 MG INHALATION ×4 (02:45→20:59)
[2023-12-05 03:31] LABS: Glucose Point of Care 222 mg/dl (65-105)
[2023-12-05] MEDS: INSULIN ASPART (*BKC) 100 UNITS/ML SUB-Q (03:31)
[2023-12-05] MEDS: METOCLOPRAMIDE HCL INJ 10 MG/2 ML VIAL IV PUSH ×4 (05:23→23:50)
[2023-12-05] MEDS: CENTRAL LINE FLUSH 10 ML IV PUSH ×3 (05:24→21:46)
[2023-12-05 05:48] LABS: Hematocrit 29.7 % (37.0-47.0); Hemoglobin 8.7 g/dL (12.0-15.0); Mean Corpuscular HGB Conc 29.3 g/dl (32-36); Mean Corpuscular Hemoglobin 26.6 pg (26-34); Mean Corpuscular Volume 90.8 fl (80-100); Mean Platelet Volume 10.9 fl (7.4-10.4); Platelet Count Result 409 k/mm3 (150-375); Red Blood Count 3.27 M/mm3 (4.2-5.4); Red Cell Distribution Width 14.7 % (11.5-14.5); White Blood Count 31.9 K/mm3 (4.5-10.0)
[2023-12-05 06:04] LABS: Alveolar/Arterial O2 Gradient 504.5 mmHg; Base Excess ABG 3.3 mEq/l (+/-2.0); Carboxyhemoglobin 0.3 % THb (0-2.0); Fractional Inspired Oxygen 100 %; HCO3 ABG 27.3 mEq/l (22.0-26.0); Methemoglobin ABG 0.3 %THb (0-1.5); Oxygen Content ABG 14.7 %vol (16.0-22.0); Oxygen Saturation ABG 99.2 % (95.0-100.0); Oxyhemoglobin 97.8 % THb (90.0-100.0); PCO2 ABG 39.3 mmHg (35.0-45.0); PO2 ABG 169.2 mmHg (80.0-100.0); PO2 FiO2 Ratio Arterial Blood 1.69 %; Reduced Hemoglobin 1.6 %THb (0-5.0); Total Hemoglobin 10.4 g/dL (12.0-18.0)
[2023-12-05 06:08] LABS: Arterial Blood Gas PEEP 15 cmH2O; Arterial Blood Gas Vent Mode CMV; Arterial Blood Gas Ventilator rate 16 /MIN; Device VENTILATOR; Modified Allen's Test Pass; Site Drawn RIGHT RADIAL
[2023-12-05 06:09] LABS: Arterial Blood Gas Tidal Volume 350 ml
--- NOTE | 2023-12-05 06:11 | PC.NURSE ---
Pt had 17 beat run V-tach. Assymptomatic. Dr. Mcintyre notified. Chemistry pending at this time.
[2023-12-05 06:26] LABS: Vancomycin Trough 27.3 ug/mL (10.0-20.0)
[2023-12-05 06:32] LABS: Alanine Aminotransferase 86 U/L (6-35); Albumin Level 3.2 g/dL (3.5-5.1); Alkaline Phosphatase 237 U/L (38-126); Anion Gap 12 mmol/L (8-16); Aspartate Amino Transferase 44 U/L (14-36); Bilirubin,Total 0.6 mg/dL (0.2-1.3); Blood Urea Nitrogen 69 mg/dL (7-17); Calcium 9.1 mg/dL (8.4-10.2); Carbon Dioxide 29 mmol/L (22-30); Chloride 96 mmol/L (98-107); Estimated CRCL calculation 27 ml/min; Estimated Glomerular Filt Rate 18; Glucose 161 mg/dL (65-110); Magnesium 2.4 mg/dL (1.6-2.3); Potassium 3.9 mmol/L (3.4-5.0); Sodium 137 mmol/L (137-145); Triglycerides 126 mg/dL (<150)
[2023-12-05] MEDS: ACETAMINOPHEN ELIXIR 325 MG/10.15 ML UDC 650 MG PO ×2 (06:49→15:59)
[2023-12-05 07:30] LABS: Glucose Point of Care 90 mg/dl (65-105)
[2023-12-05] MEDS: INSULIN GLARGINE (*BKC) 100 UNITS/ML 80 UNITS SUB-Q ×2 (07:58→20:08)
[2023-12-05] MEDS: FENTANYL 2,500MCG/NS250ML(*CRX 2,500 MCG/250 ML BAG IV CONT (07:59)
[2023-12-05] MEDS: PANTOPRAZOLE SODIUM IV 40 MG VIAL IV PUSH ×2 (08:16→20:07)
[2023-12-05] MEDS: carvediloL 25 MG TABLET PO ×2 (08:17→20:07)
[2023-12-05] MEDS: amLODIPine BESYLATE 5 MG TABLET 10 MG PO (08:17)
[2023-12-05] MEDS: MINERAL OIL/WHITE PETROLATUM OINTMENT 1 APPLIC EACH EYE ×2 (08:17→20:08)
[2023-12-05] MEDS: ENOXAPARIN 30 MG/0.3 ML SYRINGE SUB-Q (08:17)
[2023-12-05] MEDS: ASPIRIN 325 MG TABLET FEED TUBE (08:17)
[2023-12-05] MEDS: SODIUM CHLORIDE 0.9% IV 1,000 ML 999 ML IV CONT (09:30)
--- NOTE | 2023-12-05 11:18 | PCFNICU ---
ICU Rounding Note: Pt current nutrition is Nepro at 40 ml/hr Last recorded weight is 97.9 kg, down from 118.1 kg on admit. dialysis patient. Bowel Motility:+BM reported 12/04 Labs Reviewed:Glu 161, BUN 69, Cr 2.8,GFR 18, Alb 3.2, Hct 29.7,Hgb 8.7 Meds Noted: Lovenox, Reglan, Protonix, Coreg, Lantus, Fentanyl, Miralax. Skin: WNL Additional Notes: Patient remains on mechanical vent. Tube feedings of Nepro at 40 ml/hr and tolerating per nursing. Flush 30 ml q 4 hours. Protein Modular-Prosource BID. Discussions regarding possible PEG/Trach if unable to wean from mechanical ventilator. Agree with diet orders. Following daily in ICU rounds. Will monitor weight, labs, skin, meds, tube feeding tolerance every Sunday and Sunday.
[2023-12-05] MEDS: EPOETIN ALFA-EPBX 10,000 UNITS/ML VIAL 10000 UNITS IV PUSH (11:35)
[2023-12-05 11:55] LABS: Glucose Point of Care 98 mg/dl (65-105)
--- NOTE | 2023-12-05 12:15 | PM.PNNEP ---
Progress Note: A&P Assessment and Plan (1) JOHN PAUL (acute kidney injury): Code(s): N17.9 - Acute kidney failure, unspecified Status: Acute Assessment and Plan: multifactorial etiology: cardiac arrest hemodynamic instability sepsis/infection hypoxia contrast exposure (CTA of chest on admission) pre-renal factors diuretic therapy prior to admission s/p aggressive IVF resuscitation evaluation to date: CT scan of abdomen without obstruction renal ultrasound left renal scarring and volume loss CPK normal urine electrolytes prerenal urine eosinophils negative moderate proteinuria HD yesterday and HD today continue to follow trend of labs and UOP for potential renal recovery (2) Stage 3b chronic kidney disease: Code(s): N18.32 - Chronic kidney disease, stage 3b Status: Chronic Assessment and Plan: evidence of renal insufficiency/chronic kidney disease 2021 creatinine seems to run around 1.3 - 1.7mg/dl presumably due to hypertension, diabetes, and vascular disease (3) Hyperkalemia: Code(s): E87.5 - Hyperkalemia Status: Acute Assessment and Plan: potassium stable follow trend (4) Sepsis: Code(s): A41.9 - Sepsis, unspecified organism Status: Acute Assessment and Plan: suspect secondary to pneumonia based on imaging testing to date white blood cell count still elevated on antibiotics off vasopressor therapy (5) Acute hypoxic respiratory failure: Code(s): J96.01 - Acute respiratory failure with hypoxia Status: Acute Assessment and Plan: felt to be secondary to combination of pneumonia and pulmonary edema in conjunction with cardiac arrest fluid removal with dialysis as tolerated antibiotics for pneumonia continue ventilator support weaning once more stable (6) Cardiac arrest: Code(s): I46.9 - Cardiac arrest, cause unspecified Status: Acute Assessment and Plan: etiology not entirely clear: pneumonia? CHF? hyperkalemia? primary cardiac event? trend of troponins (elevation could just be from cardiac arrest + CPR) Echo shows limited views but seems grossly normal Cardiology following (7) Diabetes: Code(s): E11.9 - Type 2 diabetes mellitus without complications Status: Chronic Assessment and Plan: follow accu-cheks was on insulin gtt (noted DKA on admission) transitioned to SQ insulin glycemic control per dielectric tester/hospitalists Will continue to follow. Subjective Date/time seen: 12/05/23 12:15 Interval history: Follow-up for acute kidney injury/acute renal failure on chronic kidney disease. Events noted yesterday afternoon during dialysis -- acute desaturation with associated tachypnea; ultrafiltration wioth HD discontinued and sedation provided but this led to hypotension requiring transient vasopressor therapy; off vasopressor therapy currently with stable hemodynamics; tolerating dialysis treatment at the time of my visit (seen on HD at 12:05PM). Exam Narrative: General: large WD/WN female intubated on mechanical ventilation Heart: normal S1 and S2; no rub Lungs: coarse breath sounds; decreased at bases Abdomen: soft, nontender, nondistended, positive bowel sounds Extremities: trace edema bilaterally Skin: no rash Objective Data Vital Signs Vital Signs: Vital Signs Temp Pulse Resp BP Pulse Ox O2 Del Method FiO2 12/05/23 12:15 81 97/48 L 12/05/23 12:00 73 106/52 L 12/05/23 11:45 73 99/57 L 12/05/23 11:30 74 111/64 12/05/23 11:15 75 113/60 12/05/23 11:00 75 99/59 L 12/05/23 10:00 75 12/05/23 08:00 79 12/05/23 11:22 94 Mechanical Ventilation 60 12/05/23 11:07 73 97 Mechanical Ventilation 70 12/05/23 10:45 74 111/66 12/05/23 10:30 73 109/66 12/05/23 10:15 73 106/62 12/05/23
--- NOTE | 2023-12-05 12:15 | P.PNNP_ITS ---
Progress Note: A&P Assessment and Plan (1) JOHN PAUL (acute kidney injury): Code(s): N17.9 - Acute kidney failure, unspecified Status: Acute Assessment and Plan: * multifactorial etiology: * cardiac arrest * hemodynamic instability * sepsis/infection * hypoxia * contrast exposure (CTA of chest on admission) * pre-renal factors * diuretic therapy prior to admission * s/p aggressive IVF resuscitation * evaluation to date: * CT scan of abdomen without obstruction * renal ultrasound left renal scarring and volume loss * CPK normal * urine electrolytes prerenal * urine eosinophils negative * moderate proteinuria * HD yesterday and HD today * continue to follow trend of labs and UOP for potential renal recovery (2) Stage 3b chronic kidney disease: Code(s): N18.32 - Chronic kidney disease, stage 3b Status: Chronic Assessment and Plan: * evidence of renal insufficiency/chronic kidney disease 2021 * creatinine seems to run around 1.3 - 1.7mg/dl * presumably due to hypertension, diabetes, and vascular disease (3) Hyperkalemia: Code(s): E87.5 - Hyperkalemia Status: Acute Assessment and Plan: * potassium stable * follow trend (4) Sepsis: Code(s): A41.9 - Sepsis, unspecified organism Status: Acute Assessment and Plan: * suspect secondary to pneumonia based on imaging testing to date * white blood cell count still elevated * on antibiotics * off vasopressor therapy (5) Acute hypoxic respiratory failure: Code(s): J96.01 - Acute respiratory failure with hypoxia Status: Acute Assessment and Plan: * felt to be secondary to combination of pneumonia and pulmonary edema in conjunction with cardiac arrest * fluid removal with dialysis as tolerated * antibiotics for pneumonia * continue ventilator support * weaning once more stable (6) Cardiac arrest: Code(s): I46.9 - Cardiac arrest, cause unspecified Status: Acute Assessment and Plan: * etiology not entirely clear: * pneumonia? * CHF? * hyperkalemia? * primary cardiac event? * trend of troponins (elevation could just be from cardiac arrest + CPR) * Echo shows limited views but seems grossly normal * Cardiology following (7) Diabetes: Code(s): E11.9 - Type 2 diabetes mellitus without complications Status: Chronic Assessment and Plan: * follow accu-cheks * was on insulin gtt (noted DKA on admission) * transitioned to SQ insulin * glycemic control per tooth cutter pinion/hospitalists Will continue to follow. Subjective Date/time seen: 12/05/23 12:15 Interval history: Follow-up for acute kidney injury/acute renal failure on chronic kidney disease. Events noted yesterday afternoon during dialysis -- acute desaturation with associated tachypnea; ultrafiltration wioth HD discontinued and sedation provided but this led to hypotension requiring transient vasopressor therapy; off vasopressor therapy currently with stable hemodynamics; tolerating dialysis treatment at the time of my visit (seen on HD at 12:05PM). Exam Narrative: General: large WD/WN female intubated on mechanical ventilation Heart: normal S1 and S2; no rub Lungs: coarse breath sounds; decreased at bases Abdomen: soft, nontender, nondistended, positive bowel sounds Extremities: trace edema bilaterally Skin: no rash Objective Data Vital Signs
[2023-12-05] MEDS: MEROPENEM 500 MG in SODIUM CHLORIDE 0.9% IV 100 ML 200 ML IVPB (13:49)
[2023-12-05] MEDS: dexmedeTOMIDine 400 MCG/100 ML 400 MCG/100 ML BAG 28.27 MCG IV CONT (14:27)
[2023-12-05] MEDS: DEXTROSE 50% 25 GM/50 ML SYRINGE IV PUSH (15:55)
[2023-12-05] MEDS: polyethylene glycoL 3350 17 GM POWD.PACK PO (15:59)
[2023-12-05 16:08] LABS: Glucose Point of Care 65 mg/dl (65-105)
[2023-12-05 16:26] LABS: Glucose Point of Care 203 mg/dl (65-105)
--- NOTE | 2023-12-05 18:09 | PM.IMPN ---
Progress Note: A&P Assessment and Plan (1) Acute hypoxic respiratory failure: Code(s): J96.01 - Acute respiratory failure with hypoxia Status: Acute Assessment and Plan: Acute hypoxic respiratory failure likely secondary to combination of pneumonia and pulmonary edema Chest x-ray clear today. CTA yesterday negative for PE but does show multifocal PNA. Patient has been on MV for >10 days. Tracheostomy being considered Having fevers off/on. Probably related to PNA. Continue antibiotics for pneumonia as below Wean vent as tolerated. Appreciate otr tanker truck driver input (2) Sepsis: Code(s): A41.9 - Sepsis, unspecified organism Status: Acute Assessment and Plan: CT scan done on presentation showed patchy airspace opacities throughout the lungs: PNA or pulmonary edema BCx 11/23 and 11/29: negative Sputum Cx 11/23: negative Urine Cx 11/23 and 11/29 negative Sputum Cx 11/29: positive for yeast. Imaging as above Status post 5 days of azithromycin Nasal MRSA was negative hence vancomycin discontinued Remains febrile at times and with leukocytosis (40K yesterday) Cefepime and vanco resumed on 12/02; Cefepime changed to meropenem on 12/03 WBC better today. Monitor temp curve (3) Shock: Code(s): R57.9 - Shock, unspecified Status: Acute Assessment and Plan: Multifactorial shock secondary to sepsis and cardiogenic Off levophed and vasopressin Off hydrocortisone Hold further IV fluids due to volume overload BP stable - resolved (4) DKA (diabetic ketoacidosis): Qualifiers: Diabetes mellitus type: type 1 Diabetes mellitus complication detail: without coma Qualified Code(s): E10.10 - Type 1 diabetes mellitus with ketoacidosis without coma Code(s): E11.10 - Type 2 diabetes mellitus with ketoacidosis without coma Status: Acute Assessment and Plan: Patient on presentation was in DKA and was started on IV insulin infusion. Her anion gap has closed and she has been transition to subcutaneous insulin. 11/27: Off insulin infusion The patient's blood glucose was reviewed on 12/05 Glucose remains well controlled. Continue AccuCheks covering with sliding scale. Hypoglycemia protocol available as needed. Continue to monitor (5) Acute kidney injury superimposed on CKD: Code(s): N17.9 - Acute kidney failure, unspecified; N18.9 - Chronic kidney disease, unspecified Status: Acute Assessment and Plan: Patient has history of chronic kidney disease likely secondary to DM and HTN. Cr 1.3-1.7 prior to admission Patient presented with Massiel with Cr elevated and climbed to 5.6 multifactorial to sepsis, hypoxia, cardiac arrest, IV contrast exposure Received IV fluids but became volume overloaded so fluids held Potassium has normalized CT scan of the abdomen did not show any hydronephrosis or stone Renal US 11/25: No evidence of hydronephrosis of either kidney. Left renal scarring and volume loss CK level was normal Nephrology is following and appreciate their input. HD catheter placed 11/26 and dialysis started Dialysis per Nephrology Continue to monitor urine output, electrolytes and creatinine (6) Cardiac arrest: Code(s): I46.9 - Cardiac arrest, cause unspecified Status: Acute Assessment and Plan: Patient had cardiac arrest with unknown clear etiology. Possible etiologies are respiratory failure from pneumonia and congestive heart failure and possibility of hyperkalemia leading to PEA -She received empiric tPA in the ER for suspected PE but CT scan was negative for any pulmonary embolism -Her hyperkalemia was treated and potassium level has normalized EKG shows nonspecific ST-T changes and there is mild elevation in troponin which could be secondary to CPR and cardiac arrest. -patient note to be following commands and nodding to questions appropriately Patient was started on aspirin 24 hours after tPA administration Echocardiogram
[2023-12-05 19:54] LABS: Glucose Point of Care 174 mg/dl (65-105)
[2023-12-06] VITALS (38 sets, daily range): BP systolic 122–138; BP diastolic 57–76; PULSE 62–82; RESP 17–29; TEMP 35.5–37.2; O2SAT 91–97
[2023-12-06] MEDS: INSULIN ASPART (*BKC) 100 UNITS/ML SUB-Q (00:09)
[2023-12-06 00:10] LABS: Glucose Point of Care 267 mg/dl (65-105)
[2023-12-06] MEDS: dexmedeTOMIDine 400 MCG/100 ML 400 MCG/100 ML BAG 25.7 MCG IV CONT ×6 (02:00→20:00)
[2023-12-06] MEDS: ALBUTEROL SULFATE NEB 2.5 MG/3 ML INH 5 MG INHALATION ×4 (02:59→19:50)
[2023-12-06] MEDS: IPRATROPIUM BR 0.02% INH SOLN 0.5 MG/2.5 ML VIAL INHALATION ×4 (03:00→19:50)
[2023-12-06] MEDS: LORazepam INJ (*CRX) 2 MG/ML VIAL IV PUSH (03:33)
[2023-12-06 04:37] LABS: Hematocrit 29.1 % (37.0-47.0); Hemoglobin 8.5 g/dL (12.0-15.0); Mean Corpuscular HGB Conc 29.2 g/dl (32-36); Mean Corpuscular Hemoglobin 26.6 pg (26-34); Mean Corpuscular Volume 90.9 fl (80-100); Mean Platelet Volume 10.6 fl (7.4-10.4); Platelet Count Result 427 k/mm3 (150-375); Red Cell Distribution Width 14.8 % (11.5-14.5); White Blood Count 30.1 K/mm3 (4.5-10.0)
[2023-12-06 04:46] LABS: Triglycerides 115 mg/dL (<150)
[2023-12-06 04:48] LABS: Alanine Aminotransferase 72 U/L (6-35); Alkaline Phosphatase 230 U/L (38-126); Anion Gap 7 mmol/L (8-16); Aspartate Amino Transferase 51 U/L (14-36); Bilirubin,Total 0.6 mg/dL (0.2-1.3); Blood Urea Nitrogen 59 mg/dL (7-17); Calcium 9.2 mg/dL (8.4-10.2); Carbon Dioxide 27 mmol/L (22-30); Chloride 99 mmol/L (98-107); Estimated CRCL calculation 34 ml/min; Estimated Glomerular Filt Rate 24; Glucose 133 mg/dL (65-110); Magnesium 2.3 mg/dL (1.6-2.3); Potassium 3.8 mmol/L (3.4-5.0); Sodium 133 mmol/L (137-145)
[2023-12-06 05:11] LABS: Alveolar/Arterial O2 Gradient 256.8 mmHg; Base Excess ABG 0.8 mEq/l (+/-2.0); Carboxyhemoglobin 0.7 % THb (0-2.0); Device VENTILATOR; Fractional Inspired Oxygen 50 %; HCO3 ABG 24.8 mEq/l (22.0-26.0); Methemoglobin ABG 0.3 %THb (0-1.5); Modified Allen's Test Pass; Oxygen Content ABG 12.9 %vol (16.0-22.0); Oxygen Saturation ABG 91.2 % (95.0-100.0); Oxyhemoglobin 88.9 % THb (90.0-100.0); PCO2 ABG 37.2 mmHg (35.0-45.0); PO2 ABG 57.9 mmHg (80.0-100.0); PO2 FiO2 Ratio Arterial Blood 1.16 %; Reduced Hemoglobin 10.1 %THb (0-5.0); Site Drawn RIGHT RADIAL; Total Hemoglobin 10.3 g/dL (12.0-18.0); pH ABG 7.442 (7.350-7.450)
[2023-12-06 05:12] LABS: Arterial Blood Gas PEEP 12 cmH2O; Arterial Blood Gas Tidal Volume 350 ml; Arterial Blood Gas Vent Mode CMV; Arterial Blood Gas Ventilator rate 16 /MIN
[2023-12-06 05:12] LABS: Vancomycin Random 16.8 ug/mL (10-20)
[2023-12-06] MEDS: CENTRAL LINE FLUSH 10 ML IV PUSH ×3 (05:33→22:13)
[2023-12-06] MEDS: METOCLOPRAMIDE HCL INJ 10 MG/2 ML VIAL IV PUSH ×3 (05:33→17:06)
[2023-12-06 07:35] LABS: Glucose Point of Care 72 mg/dl (65-105)
[2023-12-06] MEDS: carvediloL 25 MG TABLET PO ×2 (08:12→20:03)
[2023-12-06] MEDS: amLODIPine BESYLATE 5 MG TABLET 10 MG PO (08:12)
[2023-12-06] MEDS: ASPIRIN 325 MG TABLET FEED TUBE (08:12)
[2023-12-06] MEDS: MINERAL OIL/WHITE PETROLATUM OINTMENT 1 APPLIC EACH EYE ×2 (08:14→20:06)
[2023-12-06] MEDS: PANTOPRAZOLE SODIUM IV 40 MG VIAL IV PUSH ×2 (08:14→20:03)
[2023-12-06] MEDS: ENOXAPARIN 30 MG/0.3 ML SYRINGE SUB-Q (08:14)
[2023-12-06] MEDS: polyethylene glycoL 3350 17 GM POWD.PACK PO (08:26)
--- NOTE | 2023-12-06 08:54 | WPDINTPN ---
Progress Note: A&P Assessment and Plan (1) Acute hypoxic respiratory failure: Code(s): J96.01 - Acute respiratory failure with hypoxia Status: Acute Assessment and Plan: Acute hypoxic respiratory failure likely secondary to combination of pneumonia and pulmonary edema Chest x-ray and ABG reviewed -chest x-ray this morning: Moderate pulmonary edema pattern with small right pleural effusion -currently on 45 % FiO2 and peep of 8. Decrease tidal volume to 320 -continue dialysis to remove fluid -Continue bronchodilators -continue Precedex infusion -I placed patient on PSV today but patient had high RSBI and high respiratory rate. Pressure support was increased to 16/8 to get adequate RSBI. I will continue as tolerated and try to wean down pressure support -12/04 later in the day while on dialysis session patient had episode where she desaturated. Patient be sedated with increasing PEEP and FiO2. Chest x-ray was unchanged. Ultrafiltration from hemodialysis was discontinued. Patient had to be given neuromuscular noah to prevent asynchrony. A stat CTA of the chest was done which was negative for PE confirmed persistent infiltrates suggestive of pneumonia -12/05 will continue to wean FiO2 and PEEP. Patient not candidate for weaning trial at this time. Will switch propofol to fentanyl -patient has been on mechanical ventilation for close to 2 weeks and if does not improve or shows signs of weaning may need tracheostomy for prolonged wean. I have discussed this with patient's understands and agreeable to proceed with tracheostomy and PEG tube placement if needed -discussed with nephrology will plan to dialyze again today -continue antibiotics for pneumonia as below 12/02 CT scan of the chest abdomen and pelvis, since patient has had fevers and elevated WBC count IMPRESSION: 1. Multifocal consolidation in the lungs, consistent with pneumonia. 2: Mediastinal lymphadenopathy, likely reactive. 12/02: CT scan of the brain in sinus without contrast IMPRESSION: 1. No acute intracranial abnormality. No evidence for significant sinus disease. (2) Sepsis: Code(s): A41.9 - Sepsis, unspecified organism Status: Acute Assessment and Plan: CT scan done on presentation showed patchy airspace opacities throughout the lungs consistent with pneumonia or pulmonary edema 11/23: Blood, sputum and urine cultures are negative -Continue empiric cefepime, status post 5 days of azithromycin Nasal MRSA was negative hence vancomycin discontinued in light of worsening renal function -11/29: Patient has been febrile of life with a T-max of 101.1, WBC count is still at 27.4 -11/29: Preliminary blood cultures are negative x2 -11/29: Urine cultures negative -11/29: Sputum cultures growing yeast 12/01; T-max 101.2?, negative venous Dopplers, may have to do a CT scan of chest abdomen and pelvis 12/02: T-max 100.8?, WBC count rising to 29.9, CT scan of the chest showed bilateral multifocal consolidation especially bilateral lower lobes, restarted cefepime and vancomycin (12/02) Continue antibiotics and is afebrile although WBC count is still elevated (3) Shock: Code(s): R57.9 - Shock, unspecified Status: Acute Assessment and Plan: RESOLVED Multifactorial shock secondary to sepsis and cardiogenic Off levophed and vasopressin Off hydrocortisone Hold further IV fluids due to volume overload (4) DKA (diabetic ketoacidosis): Qualifiers: Diabetes mellitus complication detail: without coma Diabetes mellitus type: type 1 Qualified Code(s): E10.10 - Type 1 diabetes mellitus with ketoacidosis without coma Code(s): E11.10 - Type 2 diabetes mellitus with ketoacidosis without coma Status: Acute Assessment and Plan: RESOLVED Patient on presentation was in DKA and was started on IV insulin infusion. Her anion gap has closed and she has been transition to subcutaneous insulin. Blood gluco
--- NOTE | 2023-12-06 09:08 | WPDINTPN ---
Progress Note: A&P Assessment and Plan (1) Acute hypoxic respiratory failure: Code(s): J96.01 - Acute respiratory failure with hypoxia Status: Acute Assessment and Plan: Acute hypoxic respiratory failure likely secondary to combination of pneumonia and pulmonary edema Chest x-ray and ABG reviewed -chest x-ray this morning: Moderate pulmonary edema pattern with small right pleural effusion -currently on 45 % FiO2 and peep of 8. Decrease tidal volume to 320 -continue dialysis to remove fluid -Continue bronchodilators -continue Precedex infusion -12/04 I placed patient on PSV today but patient had high RSBI and high respiratory rate. Pressure support was increased to 16/8 to get adequate RSBI. I will continue as tolerated and try to wean down pressure support -12/04 later in the day while on dialysis session patient had episode where she desaturated. Patient be sedated with increasing PEEP and FiO2. Chest x-ray was unchanged. Ultrafiltration from hemodialysis was discontinued. Patient had to be given neuromuscular noah to prevent asynchrony. A stat CTA of the chest was done which was negative for PE confirmed persistent infiltrates suggestive of pneumonia -12/05 will continue to wean FiO2 and PEEP. Patient not candidate for weaning trial at this time. Will switch propofol to fentanyl -12/06 chest x-ray ABG reviewed. Continue to wean FiO2. Will decrease PEEP to 10 -patient has been on mechanical ventilation for more than 2 weeks and is no where close to weaning on the ventilator. I have discussed option of tracheostomy with patient's to allow for extended mechanical ventilation support and affording patient additional time to wean off the ventilator. He understands and is agreeable to proceed. I have consulted ENT and GI for tracheostomy and PEG tube placement -continue antibiotics for pneumonia as below 12/02 CT scan of the chest abdomen and pelvis, since patient has had fevers and elevated WBC count IMPRESSION: 1. Multifocal consolidation in the lungs, consistent with pneumonia. 2: Mediastinal lymphadenopathy, likely reactive. 12/02: CT scan of the brain in sinus without contrast IMPRESSION: 1. No acute intracranial abnormality. No evidence for significant sinus disease. 12/04 chest CTA Limited evaluation of subsegmental arteries. No CT evidence of acute central or segmental pulmonary embolus. Unchanged findings consistent with multifocal pneumonia. Minimal lower tracheal secretions. Mediastinal and bilateral hilar lymphadenopathy. (2) Sepsis: Code(s): A41.9 - Sepsis, unspecified organism Status: Acute Assessment and Plan: CT scan done on presentation showed patchy airspace opacities throughout the lungs consistent with pneumonia or pulmonary edema 11/23: Blood, sputum and urine cultures are negative -Continue empiric cefepime, status post 5 days of azithromycin Nasal MRSA was negative hence vancomycin discontinued in light of worsening renal function -11/29: Patient has been febrile of life with a T-max of 101.1, WBC count is still at 27.4 -11/29: Preliminary blood cultures are negative x2 -11/29: Urine cultures negative -11/29: Sputum cultures growing yeast 12/01; T-max 101.2?, negative venous Dopplers, may have to do a CT scan of chest abdomen and pelvis 12/02: T-max 100.8?, WBC count rising to 29.9, CT scan of the chest showed bilateral multifocal consolidation especially bilateral lower lobes, restarted cefepime and vancomycin (12/02) Continue antibiotics and is afebrile although WBC count is still elevated (3) Shock: Code(s): R57.9 - Shock, unspecified Status: Acute Assessment and Plan: RESOLVED Multifactorial shock secondary to sepsis and cardiogenic Off levophed and vasopressin Off hydrocortisone Hold further IV fluids due to volume overload (4) DKA (diabetic ketoacidosis): Qualifiers: Diabetes mellitus type: type 1 Diabetes mellitus complica
--- NOTE | 2023-12-06 09:14 | PM.IMHP ---
H&P: HPI History of Present Illness Date/Time: 12/06/23 09:14 Chief Complaint: respiratory failure Narrative: planned procedure Review of Systems Review of Systems: All systems reviewed & are unremarkable except as noted in HPI and below PMFSH Past Medical History Medical History Acute adjustment disorder with anxiety CKD stage 3 secondary to diabetes Essential hypertension Hyperlipidemia Surgical History Surgical History Hx of cholecystectomy Family History Family History Other Unknown family medical history Social History Social History Social History: The patient is current everyday smoker. She lives at home with her and her elderly mother. Code status: Full code Surrogate decision maker: Years smoked: 16 Smoking status: Current every day smoker Tobacco type: cigarettes Alcohol intake: never Substance use: never Substance use type: does not use Spiritual care concerns: No Meds Home Medications and Allergies Home Medications Medication Instructions Recorded Confirmed Type atorvastatin 20 mg tablet 20 tablet PO DAILY 04/12/22 11/24/23 History bupropion HCl (smoking deter) 150 150 mg PO Q12H 04/12/22 11/24/23 History mg tablet,12 hr sustained-release(smoking deterrent) carvedilol 6.25 mg tablet 25 tablet PO Q12H 04/12/22 11/24/23 History clonazepam 0.5 mg tablet 0.5 tablet PO BID 04/12/22 11/24/23 History venlafaxine 150 mg 187.5 mg PO DAILY 04/12/22 11/25/23 History capsule,extended release 24 hr amlodipine 10 mg tablet 10 mg PO DAILY 11/20/22 11/24/23 History insulin pump cart,automated,BT 06/02/23 11/24/23 History (Omnipod 5 G6 Pods (Gen 5) subcutaneous cartridge) insulin pump cartridge,automated 06/02/23 11/24/23 History dose,BT with controller subcutaneous (Omnipod 5 G6 Intro Kit (Gen 5) subcutaneous cartridge with controller) levonorgestrel 17.5 mcg/24 hrs See Rx Instructions .Route .COMPLEX 06/02/23 11/24/23 History (5yrs) 19.5mg intrauterine device (Kyleena) montelukast 5 mg chewable tablet 5 mg PO HS 06/02/23 11/24/23 History trazodone 100 mg tablet 100 mg PO HS 06/02/23 11/24/23 History chlorthalidone 25 mg tablet 25 mg PO DAILY 10/26/23 11/24/23 History codeine 10 mg-guaifenesin 100 mg/5 5 - 10 ml PO Q6H PRN Cough 11/24/23 11/24/23 History mL oral liquid hydrochlorothiazide 25 mg tablet 25 mg PO DAILY 11/24/23 11/24/23 History insulin lispro 100 unit/mL See Rx Instructions .Route .COMPLEX 11/24/23 11/24/23 History subcutaneous solution (Humalog U-100 Insulin) Allergies Allergy/AdvReac Type Severity Reaction Status Date / Time doxycycline Allergy Other Verified 10/26/23 11:58 propoxyphene AdvReac Mild Itching Verified 06/02/23 15:32 [From Darcet-N 100] Vital Signs Vital Signs - 24 hr 12/05/23 09:28 12/05/23 09:28 12/05/23 09:45 Temperature 37.5 C Pulse Rate 75 72 Respiratory Rate 22 H Blood Pressure 119/63 116/63 Pulse Oximetry Oxygen Delivery Fraction of Inspired Oxygen 70 12/05/23 09:33 12/05/23 09:46 12/05/23 10:30 Temperature Pulse Rate 73 Respiratory Rate 21 H Blood Pressure Pulse Oximetry 98 97 Oxygen Delivery Mechanical Ventilation Mechanical Ventilation Fraction of Inspired Oxygen 80 70 12/05/23 10:00 12/05/23 10:00 12/05/23 10:15 Temperature Pulse Rate 73 75 73 Respiratory Rate 23 H Blood Pressure 111/66 98/72 L 106/62 Pulse Oximetry 97 Oxygen Delivery Fraction of Inspired Oxygen 12/05/23 10:30 12/05/23 10:45 12/05/23 11:07 Temperature Pulse Rate 73 74 73 Respiratory Rate Blood Pressure 109/66 111/66 Pulse Oximetry 97 Oxygen Delivery Mechanical Ventilation Fraction of I
--- NOTE | 2023-12-06 09:58 | PM.IMPN ---
Progress Note: A&P Assessment and Plan (1) Acute hypoxic respiratory failure: Code(s): J96.01 - Acute respiratory failure with hypoxia Status: Acute Assessment and Plan: Acute hypoxic respiratory failure likely secondary to combination of pneumonia and pulmonary edema Chest x-ray reviewed showing left upper lobe atelectasis CTA 12/04 negative for PE but does show multifocal PNA. Patient has been on MV for >10 days. Tracheostomy being planned Having fevers off/on. Probably related to PNA. Continue antibiotics for pneumonia as below Wean vent as tolerated. Appreciate information systems security specialist input (2) Sepsis: Code(s): A41.9 - Sepsis, unspecified organism Status: Acute Assessment and Plan: CT chest on presentation showed patchy airspace opacities throughout the lungs: PNA or pulmonary edema BCx 11/23 and 11/29: negative Sputum Cx 11/23: negative Urine Cx 11/23 and 11/29 negative Sputum Cx 11/29: positive for yeast. Imaging as above Status post 5 days of azithromycin Nasal MRSA was negative hence vancomycin was discontinued but then resumed Remains febrile at times and with leukocytosis to 40K Cefepime and vanco resumed on 12/02; Cefepime changed to meropenem on 12/03 WBC better. Monitor temp curve (3) Shock: Code(s): R57.9 - Shock, unspecified Status: Acute Assessment and Plan: Multifactorial shock secondary to sepsis and cardiogenic Off levophed and vasopressin Off hydrocortisone Hold further IV fluids due to volume overload BP remaining stable (4) DKA (diabetic ketoacidosis): Qualifiers: Diabetes mellitus type: type 1 Diabetes mellitus complication detail: without coma Qualified Code(s): E10.10 - Type 1 diabetes mellitus with ketoacidosis without coma Code(s): E11.10 - Type 2 diabetes mellitus with ketoacidosis without coma Status: Acute Assessment and Plan: Patient on presentation was in DKA and was started on IV insulin infusion. Her anion gap has closed and she has been transition to subcutaneous insulin. 11/27: Off insulin infusion The patient's blood glucose was reviewed on 12/05 Glucose remains well controlled. Continue AccuCheks covering with sliding scale. Hypoglycemia protocol available as needed. Continue to monitor (5) Acute kidney injury superimposed on CKD: Code(s): N17.9 - Acute kidney failure, unspecified; N18.9 - Chronic kidney disease, unspecified Status: Acute Assessment and Plan: Patient has history of chronic kidney disease likely secondary to DM and HTN. Cr 1.3-1.7 prior to admission Patient presented with JOHN PAUL with Cr elevated and climbed to 5.6; multifactorial to sepsis, hypoxia, cardiac arrest, IV contrast exposure Received IV fluids but became volume overloaded so fluids held Potassium has normalized CT scan of the abdomen did not show any hydronephrosis or stone Renal US 11/25: No evidence of hydronephrosis of either kidney. Left renal scarring and volume loss CK level was normal Nephrology is following and appreciate their input. HD catheter placed 11/26 and dialysis started Dialysis per Nephrology Continue to monitor urine output, electrolytes and creatinine (6) Cardiac arrest: Code(s): I46.9 - Cardiac arrest, cause unspecified Status: Acute Assessment and Plan: Patient had cardiac arrest with unknown clear etiology. Possible etiologies are respiratory failure from pneumonia and congestive heart failure and possibility of hyperkalemia leading to PEA -She received empiric tPA in the ER for suspected PE but CT scan was negative for any pulmonary embolism -Her hyperkalemia was treated and potassium level has normalized EKG shows nonspecific ST-T changes and there is mild elevation in troponin which could be secondary to CPR and cardiac arrest. -patient note to be following commands and nodding to questions appropriately Patient was started on aspirin 24 hours after tPA admin
--- NOTE | 2023-12-06 11:42 | PCFNICU ---
ICU Rounding Note: Pt current nutrition is Nepro at 40 ml/h with Prosource BID. Last recorded weight is 98.3 kg, down from 118.1 kg on admit. Bowel Motility:Last reported BM 12/04 Labs Reviewed:Hgb 8.5,Hct 29.1,Alb 3.0,GFR 24, BUN 59, Cr 2.2,Glu 133 Meds Noted:Reglan, Precedex, Fentanyl, Lantus, Lovenox, Protonix, Miralax. Skin: WNL Additional Notes: Patient is currently on tube feedings of Nepro at 40ml/hr, plans to be NPO after midnight for Trach on 12/07. Plans for PEG placement next week. Agree with diet orders. Following daily in ICU rounds. Will monitor weight, labs, skin, meds, tube feeding tolerance every Sunday and Sunday.
[2023-12-06 11:46] LABS: Glucose Point of Care 60 mg/dl (65-105)
[2023-12-06] MEDS: DEXTROSE 50% 25 GM/50 ML SYRINGE IV PUSH ×2 (11:49→20:16)
--- NOTE | 2023-12-06 12:16 | PM.PNNEP ---
Progress Note: A&P Assessment and Plan (1) JOHN PAUL (acute kidney injury): Code(s): N17.9 - Acute kidney failure, unspecified Status: Acute Assessment and Plan: ATN due to multifactorial etiology: cardiac arrest hemodynamic instability sepsis/infection hypoxia contrast exposure (CTA of chest on admission) pre-renal factors diuretic therapy prior to admission s/p aggressive IVF resuscitation evaluation to date: CT scan of abdomen without obstruction renal ultrasound left renal scarring and volume loss CPK normal urine electrolytes prerenal urine eosinophils negative moderate proteinuria HD yesterday - plan HD tomorrow next step would be placement of tunneled HD catheter since she is still requiring intermittent dialysis continue to follow trend of labs and UOP for potential renal recovery (2) Stage 3b chronic kidney disease: Code(s): N18.32 - Chronic kidney disease, stage 3b Status: Chronic Assessment and Plan: evidence of renal insufficiency/chronic kidney disease 2021 creatinine seems to run around 1.3 - 1.7mg/dl presumably due to hypertension, diabetes, and vascular disease (3) Hyperkalemia: Code(s): E87.5 - Hyperkalemia Status: Acute Assessment and Plan: potassium stable follow trend (4) Sepsis: Code(s): A41.9 - Sepsis, unspecified organism Status: Acute Assessment and Plan: suspect secondary to pneumonia based on imaging testing to date white blood cell count still elevated on antibiotics off vasopressor therapy (5) Acute hypoxic respiratory failure: Code(s): J96.01 - Acute respiratory failure with hypoxia Status: Acute Assessment and Plan: felt to be secondary to combination of pneumonia and pulmonary edema in conjunction with cardiac arrest fluid removal with dialysis as tolerated antibiotics for pneumonia continue ventilator support noted plans for tracheostomy (6) Cardiac arrest: Code(s): I46.9 - Cardiac arrest, cause unspecified Status: Acute Assessment and Plan: etiology not entirely clear: pneumonia? CHF? hyperkalemia? primary cardiac event? trend of troponins (elevation could just be from cardiac arrest + CPR) Echo shows limited views but seems grossly normal Cardiology following (7) Diabetes: Code(s): E11.9 - Type 2 diabetes mellitus without complications Status: Chronic Assessment and Plan: follow accu-cheks was on insulin gtt (noted DKA on admission) transitioned to SQ insulin glycemic control per hotel or motel receptionist/hospitalists Will continue to follow. Subjective Date/time seen: 12/06/23 12:16 Interval history: Follow-up for acute kidney injury/acute renal failure on chronic kidney disease. Tolerated hemodialysis treatment yesterday without any issues or problems; remains intubated and on mechanical ventilation -- no progress with regard to ventilator weaning so ENT and GI consulted for tracheostomy and G-tube placement for ongoing ventilator weaning and nutritional support; stable hemodynamics noted; no apparent distress noted. Exam Narrative: General: large WD/WN female intubated on mechanical ventilation Heart: normal S1 and S2; no rub Lungs: coarse breath sounds; decreased at bases Abdomen: soft, nontender, nondistended, positive bowel sounds Extremities: trace edema bilaterally Skin: no rash Objective Data Vital Signs Vital Signs: Vital Signs Temp Pulse Resp BP Pulse Ox O2 Del Method FiO2 12/06/23 12:00 98.4 F 76 25 H 132/76 94 Mechanical Ventilation 50 12/06/23 11:53 50 12/06/23 11:53 93 Mechanical Ventilation 12/06/23 11:52 73 23 H 12/06/23 11:52 73 23 H 12/06/23 10:00 70 12/06/23 10:00 98 F 71 20 122/63 97 12/06/23 09:31 70 21 H 12/06/23 09:30 70 19 12/06/23 08:00 72
--- NOTE | 2023-12-06 12:16 | P.PNNP_ITS ---
Progress Note: A&P Assessment and Plan (1) JOHN PAUL (acute kidney injury): Code(s): N17.9 - Acute kidney failure, unspecified Status: Acute Assessment and Plan: * ATN due to multifactorial etiology: * cardiac arrest * hemodynamic instability * sepsis/infection * hypoxia * contrast exposure (CTA of chest on admission) * pre-renal factors * diuretic therapy prior to admission * s/p aggressive IVF resuscitation * evaluation to date: * CT scan of abdomen without obstruction * renal ultrasound left renal scarring and volume loss * CPK normal * urine electrolytes prerenal * urine eosinophils negative * moderate proteinuria * HD yesterday - plan HD tomorrow * next step would be placement of tunneled HD catheter since she is still requiring intermittent dialysis * continue to follow trend of labs and UOP for potential renal recovery (2) Stage 3b chronic kidney disease: Code(s): N18.32 - Chronic kidney disease, stage 3b Status: Chronic Assessment and Plan: * evidence of renal insufficiency/chronic kidney disease 2021 * creatinine seems to run around 1.3 - 1.7mg/dl * presumably due to hypertension, diabetes, and vascular disease (3) Hyperkalemia: Code(s): E87.5 - Hyperkalemia Status: Acute Assessment and Plan: * potassium stable * follow trend (4) Sepsis: Code(s): A41.9 - Sepsis, unspecified organism Status: Acute Assessment and Plan: * suspect secondary to pneumonia based on imaging testing to date * white blood cell count still elevated * on antibiotics * off vasopressor therapy (5) Acute hypoxic respiratory failure: Code(s): J96.01 - Acute respiratory failure with hypoxia Status: Acute Assessment and Plan: * felt to be secondary to combination of pneumonia and pulmonary edema in conjunction with cardiac arrest * fluid removal with dialysis as tolerated * antibiotics for pneumonia * continue ventilator support * noted plans for tracheostomy (6) Cardiac arrest: Code(s): I46.9 - Cardiac arrest, cause unspecified Status: Acute Assessment and Plan: * etiology not entirely clear: * pneumonia? * CHF? * hyperkalemia? * primary cardiac event? * trend of troponins (elevation could just be from cardiac arrest + CPR) * Echo shows limited views but seems grossly normal * Cardiology following (7) Diabetes: Code(s): E11.9 - Type 2 diabetes mellitus without complications Status: Chronic Assessment and Plan: * follow accu-cheks * was on insulin gtt (noted DKA on admission) * transitioned to SQ insulin * glycemic control per treasury analyst/hospitalists Will continue to follow. Subjective Date/time seen: 12/06/23 12:16 Interval history: Follow-up for acute kidney injury/acute renal failure on chronic kidney disease. Tolerated hemodialysis treatment yesterday without any issues or problems; remains intubated and on mechanical ventilation -- no progress with regard to ventilator weaning so ENT and GI consulted for tracheostomy and G-tube placement for ongoing ventilator weaning and nutritional support; stable hemodynamics noted; no apparent distress noted. Exam Narrative: General: large WD/WN female intubated on mechanical ventilation Heart: normal S1 and S2; no rub Lungs: coarse breath sounds; decreased at bases Abdomen: soft, nontender, nondistended, positive bowel sounds
[2023-12-06 13:06] LABS: Glucose Point of Care 91 mg/dl (65-105)
[2023-12-06] MEDS: MEROPENEM 500 MG in SODIUM CHLORIDE 0.9% IV 100 ML 200 ML IVPB (13:27)
--- NOTE | 2023-12-06 15:35 | WPDGICN ---
Assessment and Plan Assessment and plan (1) Respiratory failure: Code(s): J96.90 - Respiratory failure, unspecified, unspecified whether with hypoxia or hypercapnia Status: Acute Assessment and Plan: prolonged intubated post cardiac arrest with anoxic brain injury now will need PEG placement, we will schedule tomorrow (2) Cardiac arrest: Code(s): I46.9 - Cardiac arrest, cause unspecified Status: Acute Assessment and Plan: still in icu plan for trach as well (3) Shock: Code(s): R57.9 - Shock, unspecified Status: Acute Assessment and Plan: resolved and treatd (4) Anoxic brain injury: Code(s): G93.1 - Anoxic brain damage, not elsewhere classified Status: Acute (5) Diabetes: Code(s): E11.9 - Type 2 diabetes mellitus without complications Status: Chronic (6) Multifocal pneumonia: Code(s): J18.9 - Pneumonia, unspecified organism Status: Acute Assessment and Plan: treated, intubated (7) Acute kidney injury superimposed on CKD: Code(s): N17.9 - Acute kidney failure, unspecified; N18.9 - Chronic kidney disease, unspecified Status: Acute GI Consult Note Consult date/time: 12/06/23 15:35 Reason for consult: prolonged intubated, post cardiac arrest HPI: Yudelka Alvarez is a 43 year old female with history of morbid obesity, insulin-dependent diabetes mellitus, essential hypertension, and depression who presented to the ER via EMS 11/23 after cardiac arrest witnessed by EMS. Since in ICU intubated, she was on shock with possible cardiogenic/sepsis source, pneumonia, larry and other problems. She has OGT now for tube feeding. Finally primary team talked to family and will get tracheostomy and PEG placement. Review of Systems Review of Systems: ROS unobtainable: Yes unobtainable due to endotracheal tube and unobtainable due to mental status PMFSH Past Medical History Medical History Acute adjustment disorder with anxiety CKD stage 3 secondary to diabetes Essential hypertension Hyperlipidemia Surgical History Surgical History Hx of cholecystectomy Family History Family History Other Unknown family medical history Social History Social History Social History: The patient is current everyday smoker. She lives at home with her and her elderly mother. Code status: Full code Surrogate decision maker: Years smoked: 16 Smoking status: Current every day smoker Tobacco type: cigarettes Alcohol intake: never Substance use: never Substance use type: does not use Spiritual care concerns: No Meds Home Medications and Allergies Home Medications Medication Instructions Recorded Confirmed Type atorvastatin 20 mg tablet 20 tablet PO DAILY 04/12/22 11/24/23 History bupropion HCl (smoking deter) 150 150 mg PO Q12H 04/12/22 11/24/23 History mg tablet,12 hr sustained-release(smoking deterrent) carvedilol 6.25 mg tablet 25 tablet PO Q12H 04/12/22 11/24/23 History clonazepam 0.5 mg tablet 0.5 tablet PO BID 04/12/22 11/24/23 History venlafaxine 150 mg 187.5 mg PO DAILY 04/12/22 11/25/23 History capsule,extended release 24 hr amlodipine 10 mg tablet 10 mg PO DAILY 11/20/22 11/24/23 History insulin pump cart,automated,BT 06/02/23 11/24/23 History (Omnipod 5 G6 Pods (Gen 5) subcutaneous cartridge) insulin pump cartridge,automated 06/02/23 11/24/23 History dose,BT with controller subcutaneous (Omnipod 5 G6 Intro Kit (Gen 5) subcutaneous cartridge with controller) levonorgestrel 17.5 mcg/24 hrs See Rx Instructions .Route .COMPLEX 06/02/23 11/24/23 History (5yrs) 19.5mg intrauterine device (Kyleena) montelukast 5 mg chewable tabl
[2023-12-06 16:17] LABS: Glucose Point of Care 90 mg/dl (65-105)
[2023-12-06] MEDS: FENTANYL 2,500MCG/NS250ML(*CRX 2,500 MCG/250 ML BAG 7.5 MCG IV CONT (20:03)
[2023-12-06 20:48] LABS: Glucose Point of Care 62 mg/dl (65-105)
[2023-12-06 20:48] LABS: Glucose Point of Care 132 mg/dl (65-105)
[2023-12-07] VITALS (75 sets, daily range): BP systolic 92–147; BP diastolic 48–68; PULSE 58–94; RESP 16–30; TEMP 34.8–37.8; O2SAT 93–100
[2023-12-07] MEDS: dexmedeTOMIDine 400 MCG/100 ML 400 MCG/100 ML BAG 25.7 MCG IV CONT
[2023-12-07 00:19] LABS: Glucose Point of Care 104 mg/dl (65-105)
[2023-12-07] MEDS: METOCLOPRAMIDE HCL INJ 10 MG/2 ML VIAL IV PUSH ×3 (00:20→17:33)
[2023-12-07] MEDS: IPRATROPIUM BR 0.02% INH SOLN 0.5 MG/2.5 ML VIAL INHALATION ×4 (02:08→20:20)
[2023-12-07] MEDS: ALBUTEROL SULFATE NEB 2.5 MG/3 ML INH 5 MG INHALATION ×4 (02:08→20:20)
[2023-12-07 04:14] LABS: Hematocrit 28.2 % (37.0-47.0); Hemoglobin 8.4 g/dL (12.0-15.0); Mean Corpuscular HGB Conc 29.8 g/dl (32-36); Mean Corpuscular Hemoglobin 26.9 pg (26-34); Mean Corpuscular Volume 90.4 fl (80-100); Mean Platelet Volume 10.7 fl (7.4-10.4); Platelet Count Result 430 k/mm3 (150-375); Red Blood Count 3.12 M/mm3 (4.2-5.4); Red Cell Distribution Width 14.7 % (11.5-14.5); White Blood Count 27.1 K/mm3 (4.5-10.0)
[2023-12-07] MEDS: DEXTROSE 50% 25 GM/50 ML SYRINGE IV PUSH ×4 (04:16→23:15)
[2023-12-07 04:25] LABS: INR 1.2; Prothrombin Time 16.2 Seconds (11.1-14.7)
[2023-12-07 04:28] LABS: Alveolar/Arterial O2 Gradient 233.5 mmHg; Base Excess ABG -2.7 mEq/l (+/-2.0); Carboxyhemoglobin 0.8 % THb (0-2.0); Fractional Inspired Oxygen 50 %; HCO3 ABG 21.8 mEq/l (22.0-26.0); Methemoglobin ABG 0.3 %THb (0-1.5); Oxygen Content ABG 12.3 %vol (16.0-22.0); Oxygen Saturation ABG 96.1 % (95.0-100.0); PCO2 ABG 36.5 mmHg (35.0-45.0); PO2 ABG 81.9 mmHg (80.0-100.0); PO2 FiO2 Ratio Arterial Blood 1.64 %; Reduced Hemoglobin 4.9 %THb (0-5.0); Total Hemoglobin 9.2 g/dL (12.0-18.0); pH ABG 7.394 (7.350-7.450)
[2023-12-07 04:29] LABS: Device VENTILATOR; Modified Allen's Test Pass; Site Drawn RIGHT RADIAL
[2023-12-07 04:30] LABS: Arterial Blood Gas PEEP 10 cmH2O; Arterial Blood Gas Vent Mode CMV; Arterial Blood Gas Ventilator rate 16 /MIN
[2023-12-07 04:31] LABS: Arterial Blood Gas Tidal Volume 350 ml
[2023-12-07 04:36] LABS: Glucose Point of Care 67 mg/dl (65-105)
[2023-12-07 04:36] LABS: Glucose Point of Care 135 mg/dl (65-105)
[2023-12-07 04:46] LABS: Alanine Aminotransferase 64 U/L (6-35); Albumin Level 2.9 g/dL (3.5-5.1); Alkaline Phosphatase 222 U/L (38-126); Anion Gap 10 mmol/L (8-16); Aspartate Amino Transferase 47 U/L (14-36); Bilirubin,Total 0.6 mg/dL (0.2-1.3); Blood Urea Nitrogen 88 mg/dL (7-17); Calcium 9.4 mg/dL (8.4-10.2); Carbon Dioxide 26 mmol/L (22-30); Chloride 95 mmol/L (98-107); Estimated CRCL calculation 31 ml/min; Estimated Glomerular Filt Rate 22; Glucose 73 mg/dL (65-110); Magnesium 2.4 mg/dL (1.6-2.3); Potassium 3.7 mmol/L (3.4-5.0); Sodium 131 mmol/L (137-145)
[2023-12-07] MEDS: dexmedeTOMIDine 400 MCG/100 ML 400 MCG/100 ML BAG 17.99 MCG IV CONT ×4 (04:56→23:09)
[2023-12-07] MEDS: CENTRAL LINE FLUSH 10 ML IV PUSH ×2 (06:24→21:17)
--- NOTE | 2023-12-07 07:17 | WPDHPUPDATE1 ---
History and Physical Update Update Date/Time: 12/07/23 07:17 History and Physical has been reviewed, including an updated exam of the patient. There are NO changes in the patient's condition. Risks, benefits, and alternatives have been discussed and questions answered. Patient agrees to proceed with procedure.
--- NOTE | 2023-12-07 08:42 | PM.IMPN ---
Progress Note: A&P Assessment and Plan (1) Acute hypoxic respiratory failure: Code(s): J96.01 - Acute respiratory failure with hypoxia Status: Acute Assessment and Plan: Acute hypoxic respiratory failure likely secondary to combination of pneumonia and pulmonary edema Chest x-ray reviewed showing congestive changes. CTA 12/04 negative for PE but does show multifocal PNA. Patient has been on MV for >14 days. Tracheostomy and Peg being planned for today Was having fevers off/on probably related to PNA. Fevers resolved and now with hypothermia. Continue antibiotics for pneumonia as below Wean vent as tolerated. Appreciate [employer] hrms developer input (2) Sepsis: Code(s): A41.9 - Sepsis, unspecified organism Status: Acute Assessment and Plan: CT chest on presentation showed patchy airspace opacities throughout the lungs: PNA or pulmonary edema BCx 11/23 and 11/29: negative Sputum Cx 11/23: negative Urine Cx 11/23 and 11/29 negative Sputum Cx 11/29: positive for yeast. Imaging as above Completed azithromycin Nasal MRSA was negative hence vancomycin was discontinued but then resumed Was febrile at times and with leukocytosis to 40K Cefepime and vanco resumed on 12/02; Cefepime changed to meropenem on 12/03 WBC better and fevers resolved. Continue abx to complete a course (3) Shock: Code(s): R57.9 - Shock, unspecified Status: Acute Assessment and Plan: Multifactorial shock secondary to sepsis and cardiogenic Off levophed and vasopressin Off hydrocortisone BP remaining stable (4) DKA (diabetic ketoacidosis): Qualifiers: Diabetes mellitus type: type 1 Diabetes mellitus complication detail: without coma Qualified Code(s): E10.10 - Type 1 diabetes mellitus with ketoacidosis without coma Code(s): E11.10 - Type 2 diabetes mellitus with ketoacidosis without coma Status: Acute Assessment and Plan: Patient on presentation was in DKA and was started on IV insulin infusion.? Her anion gap has closed and she has been transition to subcutaneous insulin.? 11/27:? Off insulin infusion The patient's blood glucose was reviewed on 2/2 Glucose low this morning. Lantus stopped and D5 added. Continue AccuCheks covering with sliding scale.? Hypoglycemia protocol available as needed.? Continue to monitor (5) Acute kidney injury superimposed on CKD: Code(s): N17.9 - Acute kidney failure, unspecified; N18.9 - Chronic kidney disease, unspecified Status: Acute Assessment and Plan: Patient has history of chronic kidney disease likely secondary to DM and HTN. Cr 1.3-1.7 prior to admission Patient presented with JOHN PAUL with Cr up to 5.6; multifactorial? to sepsis, hypoxia, cardiac arrest, IV contrast exposure Received IV fluids but became volume overloaded so fluids held Potassium has normalized? CT scan of the abd/pelvis 11/23 did not show any hydronephrosis or stone Renal US 11/25:?No evidence of hydronephrosis of either kidney.? Left renal scarring and volume loss CK level was normal Nephrology is following and appreciate their input. HD catheter placed 11/26 and dialysis started Dialysis per Nephrology Continue to monitor urine output, electrolytes and creatinine (6) Cardiac arrest: Code(s): I46.9 - Cardiac arrest, cause unspecified Status: Acute Assessment and Plan: Patient had cardiac arrest with unknown clear etiology.? Possible etiologies are respiratory failure from pneumonia and congestive heart failure and possibility of hyperkalemia leading to PEA Received empiric tPA in the ER for suspected PE but CT scan was negative for any pulmonary embolism Hyperkalemia was treated and potassium level has normalized EKG shows nonspecific ST-T changes. Troponin climbed to 0.21 which could be secondary to CPR and cardiac arrest. Bilat UE and LE venous doppler negative 12/01 for DVT. Left cephalic vein thrombosis noted. Rib fractures noted by CT on adm
[2023-12-07 08:48] LABS: Glucose Point of Care 49 mg/dl (65-105)
--- NOTE | 2023-12-07 08:48 | WPDANESEPPF ---
Anes - Initial Pre Proc Eval Procedure: Operation Date: 12/07/23 10:00 Proposed Procedures p Tracheostomy - Román Diaz MD Operation Date: 12/07/23 16:00 Proposed Procedures p Percutaneous Endoscopic Gastrostomy - Deo Rodriguez MD Date/Time: 12/07/23 08:48 Surgeon: Juliann Ordonez DO Pre Op Diagnosis: CARDIAC ARREST, multifocal pnuemonia Patient Data Age: 43 Gender: F Height: 1.6 m Weight: 98.8 kg Last Vital Signs Temp 36.2 C L 12/07/23 06:29 Pulse 65 12/07/23 06:00 Resp 19 12/07/23 06:00 BP 120/55 L 12/07/23 06:00 Pulse Ox 96 12/07/23 06:00 O2 Del Method Mechanical Ventilation 12/07/23 04:23 FiO2 50 12/07/23 04:23 Allergies Allergy/AdvReac Type Severity Reaction Status Date / Time doxycycline Allergy Other Verified 10/26/23 11:58 propoxyphene AdvReac Mild Itching Verified 06/02/23 15:32 [From [facility]-N 100] Home Medications Medication Instructions Recorded Confirmed Type atorvastatin 20 mg tablet 20 tablet PO DAILY 04/12/22 11/24/23 History bupropion HCl (smoking deter) 150 150 mg PO Q12H 04/12/22 11/24/23 History mg tablet,12 hr sustained-release(smoking deterrent) carvedilol 6.25 mg tablet 25 tablet PO Q12H 04/12/22 11/24/23 History clonazepam 0.5 mg tablet 0.5 tablet PO BID 04/12/22 11/24/23 History venlafaxine 150 mg 187.5 mg PO DAILY 04/12/22 11/25/23 History capsule,extended release 24 hr amlodipine 10 mg tablet 10 mg PO DAILY 11/20/22 11/24/23 History insulin pump cart,automated,BT 06/02/23 11/24/23 History (Omnipod 5 G6 Pods (Gen 5) subcutaneous cartridge) insulin pump cartridge,automated 06/02/23 11/24/23 History dose,BT with controller subcutaneous (Omnipod 5 G6 Intro Kit (Gen 5) subcutaneous cartridge with controller) levonorgestrel 17.5 mcg/24 hrs See Rx Instructions .Route .COMPLEX 06/02/23 11/24/23 History (5yrs) 19.5mg intrauterine device (Kyleena) montelukast 5 mg chewable tablet 5 mg PO HS 06/02/23 11/24/23 History trazodone 100 mg tablet 100 mg PO HS 06/02/23 11/24/23 History chlorthalidone 25 mg tablet 25 mg PO DAILY 10/26/23 11/24/23 History codeine 10 mg-guaifenesin 100 mg/5 5 - 10 ml PO Q6H PRN Cough 11/24/23 11/24/23 History mL oral liquid hydrochlorothiazide 25 mg tablet 25 mg PO DAILY 11/24/23 11/24/23 History insulin lispro 100 unit/mL See Rx Instructions .Route .COMPLEX 11/24/23 11/24/23 History subcutaneous solution (Humalog U-100 Insulin) Laboratory Tests 12/06/23 12/06/23 12/06/23 11:39 13:04 15:50 WBC RBC Hgb Hct MCV MCH MCHC RDW Plt Count MPV PT INR Puncture Site ABG pH ABG pCO2 ABG pO2 ABG PO2/FiO2 Ratio ABG HCO3 ABG O2 Saturation ABG O2 Content ABG Base Excess A-a Gradient Oxyhemoglobin Carboxyhemoglobin Methemoglobin Reduced Hemoglobin Total Hemoglobin O2 Delivery Device O2 Liters/Min Minute Volume Vent Rate Vent Mode FiO2 Tidal Volume PEEP Peak Inspir Pressure Pressure Support Sodium Potassium Chloride Carbon Dioxide Anion Gap BUN Creatinine Estim Creat Clear Calc Estimated GFR Glucose POC Capillary Glucose 60 L mg/dl 91 mg/dl 90 mg/dl (65-105) (65-105) (65-105) Calcium Magnesium Total Bilirubin AST ALT Alkaline Phosphatase Total Protein Albumin Vancomycin Tro
[2023-12-07] MEDS: DEXTROSE 5%/0.9% SOD CHL 1,000 ML 40 ML IV CONT (09:08)
[2023-12-07] MEDS: PANTOPRAZOLE SODIUM IV 40 MG VIAL IV PUSH ×2 (09:09→21:15)
[2023-12-07] MEDS: MINERAL OIL/WHITE PETROLATUM OINTMENT 1 APPLIC EACH EYE ×2 (09:09→21:29)
[2023-12-07 09:19] LABS: Glucose Point of Care 177 mg/dl (65-105)
[2023-12-07] MEDS: carvediloL 25 MG TABLET PO ×2 (09:28→21:16)
[2023-12-07] MEDS: amLODIPine BESYLATE 5 MG TABLET 10 MG PO (09:28)
--- NOTE | 2023-12-07 09:34 | WPDINTPN ---
Progress Note: A&P Assessment and Plan (1) Acute hypoxic respiratory failure: Code(s): J96.01 - Acute respiratory failure with hypoxia Status: Acute Assessment and Plan: Acute hypoxic respiratory failure likely secondary to combination of pneumonia and pulmonary edema Chest x-ray and ABG reviewed -chest x-ray this morning: Moderate pulmonary edema pattern with small right pleural effusion -currently on 45 % FiO2 and peep of 8. Decrease tidal volume to 320 -continue dialysis to remove fluid -Continue bronchodilators -continue Precedex infusion -12/04 I placed patient on PSV today but patient had high RSBI and high respiratory rate. Pressure support was increased to 16/8 to get adequate RSBI. I will continue as tolerated and try to wean down pressure support -12/04 later in the day while on dialysis session patient had episode where she desaturated. Patient be sedated with increasing PEEP and FiO2. Chest x-ray was unchanged. Ultrafiltration from hemodialysis was discontinued. Patient had to be given neuromuscular noah to prevent asynchrony. A stat CTA of the chest was done which was negative for PE confirmed persistent infiltrates suggestive of pneumonia -12/05 will continue to wean FiO2 and PEEP. Patient not candidate for weaning trial at this time. Will switch propofol to fentanyl -12/06 chest x-ray ABG reviewed. Continue to wean FiO2. Will decrease PEEP to 10 -patient has been on mechanical ventilation for more than 2 weeks and is no where close to weaning on the ventilator. I have discussed option of tracheostomy with patient's to allow for extended mechanical ventilation support and affording patient additional time to wean off the ventilator. He understands and is agreeable to proceed. I have consulted ENT and GI for tracheostomy and PEG tube placement -12/07 patient is scheduled for tracheostomy and PEG tube placement today. Continue current mechanical ventilator is settings. Chest x-ray ABG reviewed -continue antibiotics for pneumonia as below 12/02 CT scan of the chest abdomen and pelvis, since patient has had fevers and elevated WBC count IMPRESSION: 1. Multifocal consolidation in the lungs, consistent with pneumonia. 2: Mediastinal lymphadenopathy, likely reactive. 12/02: CT scan of the brain in sinus without contrast IMPRESSION: 1. No acute intracranial abnormality. No evidence for significant sinus disease. 12/04 chest CTA Limited evaluation of subsegmental arteries. No CT evidence of acute central or segmental pulmonary embolus. Unchanged findings consistent with multifocal pneumonia. Minimal lower tracheal secretions. Mediastinal and bilateral hilar lymphadenopathy. (2) Sepsis: Code(s): A41.9 - Sepsis, unspecified organism Status: Acute Assessment and Plan: CT scan done on presentation showed patchy airspace opacities throughout the lungs consistent with pneumonia or pulmonary edema 11/23: Blood, sputum and urine cultures are negative -Continue empiric cefepime, status post 5 days of azithromycin Nasal MRSA was negative hence vancomycin discontinued in light of worsening renal function -11/29: Patient has been febrile of life with a T-max of 101.1, WBC count is still at 27.4 -11/29: Preliminary blood cultures are negative x2 -11/29: Urine cultures negative -11/29: Sputum cultures growing yeast 12/01; T-max 101.2?, negative venous Dopplers, may have to do a CT scan of chest abdomen and pelvis 12/02: T-max 100.8?, WBC count rising to 29.9, CT scan of the chest showed bilateral multifocal consolidation especially bilateral lower lobes, restarted cefepime and vancomycin (12/02) Continue antibiotics and is afebrile although WBC count is still elevated but improving (3) Shock: Code(s): R57.9 - Shock, unspecified Status: Acute Assessment and Plan: RESOLVED Multifactorial shock secondary to sepsis and cardiogenic Off levophed and vasopressin Off hydrocortisone
--- NOTE | 2023-12-07 10:10 | PC.NURSE ---
Pt to OR for tracheostomy.
--- NOTE | 2023-12-07 10:10 | PC.NURSE ---
Pt to have PEG tube placement. Order from Dr. Mcintyre to give PRN Ativan for sedation purposes. May increase Fentanyl drip as pt needs to help sedation as well
[2023-12-07] MEDS: LIDO 1%/EPINEPHRINE 1:100,000 20 ML VIAL 10 ML INFILTRATE (10:46)
--- NOTE | 2023-12-07 10:55 | PCFNICU ---
ICU Rounding Note: Pt current nutrition is NPO for tracheostomy procedure. Nutrition recommendation: Resume tube feedings when medically able post-procedure. Current tube feeding orders: Nepro @ 40 ml/h with 30 ml water flushes q 4 h. Prosource BID for additional 80 kcal and 20 g protein each. Last recorded weight is 98.8 kg. Bowel Motility: Last BM charted 12/04/23 Labs Reviewed: Hgb 8.4, Hct 28.2, Alb 2.9, Na 131, GFR 22, BUN 88, Cre 2.4, Glu 73 Meds Noted: Miralax, Reglan, protonix, Lantus Skin: No pressure related skin breakdown Additional Notes: NPO today for tracheostomy procedure. Tolerating curretn tube feeding orders. Tube feeding orders to resume: Nepro @ 40 ml/h + 1584 kcal, 71 g protein, 640 ml free water. + Prosource BID. Total 1744 kcal, 111 g protein, 640 ml free water. Following daily in ICU rounds. Will monitor weight, labs, skin, meds, tube feeding tolerance every Sunday and Sunday. .
--- NOTE | 2023-12-07 11:45 | PC.NURSE ---
Pt returned from OR. No issues noted
--- NOTE | 2023-12-07 11:52 | P.OP_ITS ---
Procedure Note - Detailed Date of Procedure 12/07/23 Pre-op Diagnosis CARDIAC ARREST, multifocal pnuemoniaRespiratory failure Post-op Diagnosis Same Procedure Performed tracheostomy with modified Min flap Surgeon Román Diaz MD Anesthesia General Indications see above Findings deep trachea with rib very very small. A 7 trach did not fit. Trachea was inadvertently cracked in a modified Min flap was created Description of Procedure patient identified consent verified in ICU. Patient brought to the OR. Time- out performed general anesthesia deep in. Procedure confirmed patient prepped draped positioned 2nd time-out performed. Previously existing midline skin crease was utilized about 2 fingerbreadths above the clavicles clavicular notch sternal notch. 4 cm incision made Bovie electrocautery with [employer] retractor utilized to dissect down to the trachea. Very large thyroid isthmus. Really no bleeding. The trachea was encountered skeletonized anteriorly was noted to be very small for the patient's age in size. Tracheotomy made after anesthesia was made aware. They began to withdraw the tube it is noted that the endotracheal tube was actually stuck in the trachea significant force was utilized to remove the tube patient has a significant force I should say much more than normal. Tube removed I tried to place a 7 proximal XLT trach and noted that the trach itself was larger than the trachea. Not larger than the trachea larger than the lumen of the trachea. Endotracheal tube was replaced transorally I distal to the tracheotomy. Decision was made to create a modified Min flap given that there was a very small 1 ring fracture. This was sutured anteriorly to the soft tissue of the neck not to the skin itself. 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 At this time decision made to use a 6 proximal XLT trach. Trach was successfully inserted. Sutured the 4 corners trach ties applied. Blood loss maybe 2 cc. Care the patient given back to Anesthesiology. Patient taken back to ICU. Estimated Blood Loss 2 Drains No Packing No Pathology None sent Complications No immediate complications Condition Stable Disposition ICU [facility] Billing Surgery - Charge Forward: Surgery Billing
[2023-12-07] MEDS: ceFAZolin 1 GM/NS 50 ML 1 GM/50 ML BAG IVPB (11:54)
[2023-12-07 11:58] LABS: Glucose Point of Care 85 mg/dl (65-105)
[2023-12-07] MEDS: LORazepam INJ (*CRX) 2 MG/ML VIAL IV PUSH (12:05)
--- NOTE | 2023-12-07 12:47 | PM.PNCARD ---
Progress Note: A&P Assessment and Plan (1) Cardiac arrest: Code(s): I46.9 - Cardiac arrest, cause unspecified Status: Acute Plan 43-year-old white female with out of hospital PEA arrest 2 weeks ago. The clinical impression was this was related to hyperkalemia which was identified prior to the event. In any event she is now stabilized in the sense that she is on the ventilator with a tracheostomy has hemodialysis in place and a PEG tube placed earlier today as well. We can proceed with coronary angiography in this setting. I will make plans to do that procedure on Sunday morning. Further cardiac recommendations as appropriate will be forthcoming those results. Plans will be made for hemodialysis shortly after angiography. Pavan Cartagena MD [facility] Subjective Date/time seen: Date of service: 12/07/23 12:47 Interval history: 43-year-old hyperkalemia, PEA cardiac arrest Date of service 11/26/2023: She is intubated. Not responsive to verbal stimuli. Date of service 11/28/2023: Patient does awaken and follow basic commands. Anasarca noted Date of service 11/29/23: Remains intubated and sedated. No significant change in clinical status. Date of service 12/07/2023: Patient is stable clinically she is now on hemodialysis and intubated with tracheostomy and PEG tube placed earlier today. Plans are in place to consider transfer to LTAC facility next week. Review of Systems Review of Systems: ROS unobtainable: Yes unobtainable due to endotracheal tube Exam Const: Other: Obese white female appears her stated age intubated on mechanical ventilator support HENMT: Mouth: Yes moist mucous membranes Eyes: Sclera: sclerae normal Neck: Neck: supple Other: Carotid pulses are intact bilaterally. Unable to comment upon JVD given her body habitus Resp: Auscultation: clear to auscultation bilaterally Cardio: Rate: regular rate Rhythm: regular rhythm Other: PMI not palpable. No murmur no gallop GI: Auscultation: normal bowel sounds Skin: General skin exam: normal color Neuro: Other: Sedated Extrem: Other: Adequate perfusion, significant generalized edema noted Objective Data Vital Signs Vital Signs: Vital Signs - 24 hr 12/06/23 13:25 12/06/23 14:27 12/06/23 14:37 Temperature Pulse Rate 77 79 81 Respiratory Rate 25 H 26 H Blood Pressure Pulse Oximetry 94 Oxygen Delivery Mechanical Ventilation Fraction of Inspired Oxygen 50 12/06/23 14:00 12/06/23 16:00 12/06/23 16:00 Temperature 37.2 C 37.1 C Pulse Rate 80 78 Respiratory Rate 18 26 H Blood Pressure 138/59 L 133/64 Pulse Oximetry 93 96 Oxygen Delivery Fraction of Inspired Oxygen 50 12/06/23 14:00 12/06/23 16:00 12/06/23 17:05 Temperature Pulse Rate 81 77 77 Respiratory Rate 27 H Blood Pressure Pulse Oximetry Oxygen Delivery Fraction of Inspired Oxygen 12/06/23 16:00 12/06/23 17:06 12/06/23 16:00 Temperature Pulse Rate 75 77 Respiratory Rate 23 H 25 H Blood Pressure Pulse Oximetry 93 Oxygen Delivery Mechanical Ventilation Fraction of Inspired Oxygen 50 12/06/23 17:16 12/06/23 18:00 12/06/23 18:00 Temperature 36.7 C Pulse Rate 78 72 75 Respiratory Rate 27 H Blood Pressure 131/61 Pulse Oximetry 96 96 Oxygen Delivery Mechanical Ventilation Fraction of Inspired Oxygen 50 12/06/23 19:50 12/06/23 19:51 12/06/23 20:03 Temperature Pulse Rate 69 69 67 Respiratory Rate 17 Blood Pressure Pulse Oximetry 96 Oxygen Delivery Mechanical Ventilation Fraction of Inspired Oxygen 50 12/06/23 20:03 12/06/23 20:00 12/06/23 20:00 Temperature 36.2 C L Pulse Rate 67 67 68 Respiratory Rate 22 H 22 H 22 H Blood Pressure 132/64 Pulse Oximetry 96 Oxygen Delivery Fraction of Inspired Oxygen 12/06/23 20:00 12/06/23 20:00 12/06/23 20:00 Temperature Pulse Rate 66 Respiratory
--- NOTE | 2023-12-07 14:10 | PM.PNNEP ---
Progress Note: A&P Assessment and Plan (1) JOHN PAUL (acute kidney injury): Code(s): N17.9 - Acute kidney failure, unspecified Status: Acute Assessment and Plan: ATN due to multifactorial etiology: cardiac arrest hemodynamic instability sepsis/infection hypoxia contrast exposure (CTA of chest on admission) pre-renal factors diuretic therapy prior to admission s/p aggressive IVF resuscitation evaluation to date: CT scan of abdomen without obstruction renal ultrasound left renal scarring and volume loss CPK normal urine electrolytes prerenal urine eosinophils negative moderate proteinuria HD today and continue M/W/F schedule for now next step would be placement of tunneled HD catheter since she is still requiring intermittent dialysis continue to follow trend of labs and UOP for potential renal recovery (2) Stage 3b chronic kidney disease: Code(s): N18.32 - Chronic kidney disease, stage 3b Status: Chronic Assessment and Plan: evidence of renal insufficiency/chronic kidney disease 2021 creatinine seems to run around 1.3 - 1.7mg/dl presumably due to hypertension, diabetes, and vascular disease (3) Sepsis: Code(s): A41.9 - Sepsis, unspecified organism Status: Acute Assessment and Plan: suspect secondary to pneumonia based on imaging testing to date white blood cell count still elevated on antibiotics off vasopressor therapy (4) Acute hypoxic respiratory failure: Code(s): J96.01 - Acute respiratory failure with hypoxia Status: Acute Assessment and Plan: felt to be secondary to combination of pneumonia and pulmonary edema in conjunction with cardiac arrest fluid removal with dialysis as tolerated antibiotics for pneumonia s/p tracheostomy and G-tube placement (on 12/07/23) continue ventilator support with weaning as tolerated (5) Cardiac arrest: Code(s): I46.9 - Cardiac arrest, cause unspecified Status: Acute Assessment and Plan: etiology not entirely clear: pneumonia? CHF? hyperkalemia? primary cardiac event? trend of troponins (elevation could just be from cardiac arrest + CPR) Echo shows limited views but seems grossly normal Cardiology following - plan cardiac catheterization on Sunday (6) Diabetes: Code(s): E11.9 - Type 2 diabetes mellitus without complications Status: Chronic Assessment and Plan: follow accu-cheks was on insulin gtt (noted DKA on admission) transitioned to SQ insulin glycemic control per production weigher/hospitalists Will continue to follow. Subjective Date/time seen: 12/07/23 14:10 Interval history: Follow-up for acute kidney injury/acute renal failure on chronic kidney disease. Tolerating hemodialysis treatment at the time of my visit (seen on HD at 2:00PM); s/p tracheostomy and G-tube placement earlier today; remains hemodynamically stable and in no apparent distress; still with marginal urine output at this time; remains sedated and on mechanical ventilation via tracheostomy; issues with hypothermia overnight requiring use of alma hugger. Exam Narrative: General: large WD/WN female sedated and on mechanical ventilation via tracheostomy Heart: normal S1 and S2; no rub Lungs: coarse breath sounds; decreased at bases Abdomen: soft, nontender, nondistended, positive bowel sounds Extremities: trace edema Skin: no nodules Objective Data Vital Signs Vital Signs: Vital Signs Temp Pulse Resp BP Pulse Ox O2 Del Method FiO2 12/07/23 14:00 98.0 F 75 21 H 118/55 L 97 12/07/23 13:44 73 130/59 L 12/07/23 13:44 100 12/07/23 13:30 97.9 F 73 20 125/58 L 97 12/07/23 13:26 97.8 F 74 21 H 118/57 L 97 12/07/23 12:00 77 12/07/23 12:45 97.9 F 77 21 H 127/56 L 96 12/07/23 12:30 98.0 F 79 26 H 136/56 L 95 12/07/23 12:15 98.1 F 76 26 H 139/55 L
--- NOTE | 2023-12-07 14:10 | P.PNNP_ITS ---
Progress Note: A&P Assessment and Plan (1) JOHN PAUL (acute kidney injury): Code(s): N17.9 - Acute kidney failure, unspecified Status: Acute Assessment and Plan: * ATN due to multifactorial etiology: * cardiac arrest * hemodynamic instability * sepsis/infection * hypoxia * contrast exposure (CTA of chest on admission) * pre-renal factors * diuretic therapy prior to admission * s/p aggressive IVF resuscitation * evaluation to date: * CT scan of abdomen without obstruction * renal ultrasound left renal scarring and volume loss * CPK normal * urine electrolytes prerenal * urine eosinophils negative * moderate proteinuria * HD today and continue M/W/F schedule for now * next step would be placement of tunneled HD catheter since she is still requiring intermittent dialysis * continue to follow trend of labs and UOP for potential renal recovery (2) Stage 3b chronic kidney disease: Code(s): N18.32 - Chronic kidney disease, stage 3b Status: Chronic Assessment and Plan: * evidence of renal insufficiency/chronic kidney disease 2021 * creatinine seems to run around 1.3 - 1.7mg/dl * presumably due to hypertension, diabetes, and vascular disease (3) Sepsis: Code(s): A41.9 - Sepsis, unspecified organism Status: Acute Assessment and Plan: * suspect secondary to pneumonia based on imaging testing to date * white blood cell count still elevated * on antibiotics * off vasopressor therapy (4) Acute hypoxic respiratory failure: Code(s): J96.01 - Acute respiratory failure with hypoxia Status: Acute Assessment and Plan: * felt to be secondary to combination of pneumonia and pulmonary edema in conjunction with cardiac arrest * fluid removal with dialysis as tolerated * antibiotics for pneumonia * s/p tracheostomy and G-tube placement (on 12/07/23) * continue ventilator support with weaning as tolerated (5) Cardiac arrest: Code(s): I46.9 - Cardiac arrest, cause unspecified Status: Acute Assessment and Plan: * etiology not entirely clear: * pneumonia? * CHF? * hyperkalemia? * primary cardiac event? * trend of troponins (elevation could just be from cardiac arrest + CPR) * Echo shows limited views but seems grossly normal * Cardiology following - plan cardiac catheterization on Sunday (6) Diabetes: Code(s): E11.9 - Type 2 diabetes mellitus without complications Status: Chronic Assessment and Plan: * follow accu-cheks * was on insulin gtt (noted DKA on admission) * transitioned to SQ insulin * glycemic control per wellness nurse/hospitalists Will continue to follow. Subjective Date/time seen: 12/07/23 14:10 Interval history: Follow-up for acute kidney injury/acute renal failure on chronic kidney disease. Tolerating hemodialysis treatment at the time of my visit (seen on HD at 2:00PM); s/p tracheostomy and G-tube placement earlier today; remains hemodynamically stable and in no apparent distress; still with marginal urine output at this time; remains sedated and on mechanical ventilation via tracheostomy; issues with hypothermia overnight requiring use of alma hugger. Exam Narrative: General: large WD/WN female sedated and on mechanical ventilation via tracheostomy Heart: normal S1 and S2; no rub Lungs: coarse breath sounds; decreased at bases Abdomen: soft, nontender, nondistended, positive bowel sounds Extremities: trace edema
--- NOTE | 2023-12-07 14:20 | PC.NURSE ---
RN called to room by RT. Pt using accessory muscles and destating on 100% FiO2. Dr. Mcintyre called to room to assess pt. Peep increased to 14 and stat CXR ordered. No new orders, continue dialysis per Nephrology order
[2023-12-07] MEDS: EPOETIN ALFA-EPBX 10,000 UNITS/ML VIAL 10000 UNITS IV PUSH (15:40)
[2023-12-07 16:15] LABS: Glucose Point of Care 66 mg/dl (65-105)
[2023-12-07 16:39] LABS: Glucose Point of Care 130 mg/dl (65-105)
[2023-12-07] MEDS: HEPARIN SODIUM 1,000 UNITS/ML VIAL 4000 UNITS IV PUSH (17:29)
[2023-12-07] MEDS: VANCOMYCIN 1,000 MG/NS 250 ML 1,000 MG/250 ML BAG 250 MG IVPB (17:34)
[2023-12-07] MEDS: MEROPENEM 500 MG in SODIUM CHLORIDE 0.9% IV 100 ML 200 ML IVPB (17:35)
--- NOTE | 2023-12-07 17:35 | PCRCNOTE ---
RN informed RT that per Dr. Diaz the smallest size trach is 6.0 shiley xlt for a back up and during the procedure Dr. Diaz stated that a 7.0 shiley would not fit so he said in the case of her trach dislodging to just intubate pt with a 7.0 ET tube at bedside.
--- NOTE | 2023-12-07 17:42 | PC.NURSE ---
Dr. Diaz to bedside to assess pt after surgery. RN notified Dr. Diaz We don't carry a smaller size of the XLT Shiley's. The smallest size of the XLT's that we carry is a 6XLT. RN asked What should be done an emergency if tracheostomy becomes dislodged? Dr. Diaz stated If tracheostomy becomes dislodge to intubate pt with an ET tube. I would recommend a 7. Do not use a 7.5 ET tube. RN updated RT and MD.
[2023-12-07 20:31] LABS: Glucose Point of Care 79 mg/dl (65-105)
[2023-12-07] MEDS: ACETAMINOPHEN ELIXIR 325 MG/10.15 ML UDC 650 MG PO (21:15)
[2023-12-07 23:50] LABS: Glucose Point of Care 45 mg/dl (65-105)
[2023-12-07 23:50] LABS: Glucose Point of Care 149 mg/dl (65-105)
[2023-12-08] VITALS (31 sets, daily range): BP systolic 104–141; BP diastolic 54–80; PULSE 76–103; RESP 18–30; TEMP 36.8–38.4; O2SAT 91–99
[2023-12-08] MEDS: IPRATROPIUM BR 0.02% INH SOLN 0.5 MG/2.5 ML VIAL INHALATION ×4 (02:27→20:05)
[2023-12-08] MEDS: ALBUTEROL SULFATE NEB 2.5 MG/3 ML INH 5 MG INHALATION ×4 (02:27→20:05)
[2023-12-08] MEDS: dexmedeTOMIDine 400 MCG/100 ML 400 MCG/100 ML BAG 17.99 MCG IV CONT (04:13)
[2023-12-08 05:17] LABS: Alveolar/Arterial O2 Gradient 392.2 mmHg; Base Excess ABG 1.4 mEq/l (+/-2.0); Carboxyhemoglobin 0.7 % THb (0-2.0); Fractional Inspired Oxygen 80 %; HCO3 ABG 25.3 mEq/l (22.0-26.0); Methemoglobin ABG 0.3 %THb (0-1.5); Oxygen Content ABG 12.3 %vol (16.0-22.0); Oxygen Saturation ABG 98.9 % (95.0-100.0); Oxyhemoglobin 97.2 % THb (90.0-100.0); PCO2 ABG 36.9 mmHg (35.0-45.0); PO2 ABG 139.5 mmHg (80.0-100.0); PO2 FiO2 Ratio Arterial Blood 1.74 %; Reduced Hemoglobin 1.8 %THb (0-5.0); Total Hemoglobin 8.8 g/dL (12.0-18.0); pH ABG 7.454 (7.350-7.450)
[2023-12-08 05:21] LABS: Arterial Blood Gas Ventilator rate 16 /MIN; Device VENTILATOR; Modified Allen's Test Pass; Site Drawn RIGHT RADIAL
[2023-12-08 05:22] LABS: Arterial Blood Gas PEEP 14 cmH2O; Arterial Blood Gas Tidal Volume 350 ml; Arterial Blood Gas Vent Mode CMV
[2023-12-08] MEDS: CENTRAL LINE FLUSH 10 ML IV PUSH ×3 (05:43→20:43)
[2023-12-08] MEDS: METOCLOPRAMIDE HCL INJ 10 MG/2 ML VIAL IV PUSH ×4 (05:58→17:45)
[2023-12-08] MEDS: DEXTROSE 50% 25 GM/50 ML SYRINGE IV PUSH (06:01)
[2023-12-08 06:10] LABS: Glucose Point of Care 57 mg/dl (65-105)
[2023-12-08 06:25] LABS: Alanine Aminotransferase 49 U/L (6-35); Albumin Level 2.8 g/dL (3.5-5.1); Alkaline Phosphatase 224 U/L (38-126); Anion Gap 4 mmol/L (8-16); Aspartate Amino Transferase 46 U/L (14-36); Bilirubin,Total 0.6 mg/dL (0.2-1.3); Blood Urea Nitrogen 47 mg/dL (7-17); Calcium 8.6 mg/dL (8.4-10.2); Carbon Dioxide 31 mmol/L (22-30); Chloride 101 mmol/L (98-107); Estimated CRCL calculation 41 ml/min; Estimated Glomerular Filt Rate 31; Glucose 61 mg/dL (65-110); Magnesium 2.2 mg/dL (1.6-2.3); Potassium 3.8 mmol/L (3.4-5.0); Sodium 136 mmol/L (137-145)
[2023-12-08 06:27] LABS: Hemoglobin 7.8 g/dL (12.0-15.0); Mean Corpuscular HGB Conc 28.9 g/dl (32-36); Mean Corpuscular Hemoglobin 26.7 pg (26-34); Mean Corpuscular Volume 92.5 fl (80-100); Mean Platelet Volume 10.8 fl (7.4-10.4); Platelet Count Result 445 k/mm3 (150-375); Red Blood Count 2.92 M/mm3 (4.2-5.4); Red Cell Distribution Width 14.8 % (11.5-14.5); White Blood Count 23.5 K/mm3 (4.5-10.0)
[2023-12-08 07:35] LABS: Glucose Point of Care 124 mg/dl (65-105)
[2023-12-08 07:40] LABS: Vancomycin Trough 20.3 ug/mL (10.0-20.0)
[2023-12-08] MEDS: ACETAMINOPHEN ELIXIR 325 MG/10.15 ML UDC 650 MG PO (09:12)
[2023-12-08] MEDS: PANTOPRAZOLE SODIUM IV 40 MG VIAL IV PUSH ×2 (09:13→20:43)
[2023-12-08] MEDS: carvediloL 25 MG TABLET PO ×2 (09:13→20:43)
[2023-12-08] MEDS: ASPIRIN 325 MG TABLET FEED TUBE (09:14)
[2023-12-08] MEDS: amLODIPine BESYLATE 5 MG TABLET 10 MG PO (09:15)
[2023-12-08] MEDS: MINERAL OIL/WHITE PETROLATUM OINTMENT 1 APPLIC EACH EYE (09:16)
--- NOTE | 2023-12-08 09:17 | WPDINTPN ---
Progress Note: A&P Assessment and Plan (1) Acute hypoxic respiratory failure: Code(s): J96.01 - Acute respiratory failure with hypoxia Status: Acute Assessment and Plan: Acute hypoxic respiratory failure likely secondary to combination of pneumonia and pulmonary edema 2/2 status post tracheostomy. Procedure was complicated. Please refer to ENT op note. A size 6 trachea was able to be placed with a flap she has size 6 proximal XLT tracheostomy Chest x-ray and ABG reviewed -chest x-ray this morning atelectasis vs pneumonia -currently on 70 % FiO2 and peep of 14. Will try to wean off FiO2 -continue dialysis to remove fluid -Continue bronchodilators -off of fentanyl. Will discontinue Precedex -continue antibiotics for pneumonia as below 12/02 CT scan of the chest abdomen and pelvis, since patient has had fevers and elevated WBC count IMPRESSION: 1. Multifocal consolidation in the lungs, consistent with pneumonia. 2: Mediastinal lymphadenopathy, likely reactive. 12/02: CT scan of the brain in sinus without contrast IMPRESSION: 1. No acute intracranial abnormality. No evidence for significant sinus disease. 12/04 chest CTA Limited evaluation of subsegmental arteries. No CT evidence of acute central or segmental pulmonary embolus. Unchanged findings consistent with multifocal pneumonia. Minimal lower tracheal secretions. Mediastinal and bilateral hilar lymphadenopathy. (2) Sepsis: Code(s): A41.9 - Sepsis, unspecified organism Status: Acute Assessment and Plan: CT scan done on presentation showed patchy airspace opacities throughout the lungs consistent with pneumonia or pulmonary edema 11/23: Blood, sputum and urine cultures are negative -Continue empiric cefepime, status post 5 days of azithromycin Nasal MRSA was negative hence vancomycin discontinued in light of worsening renal function -11/29: Patient has been febrile of life with a T-max of 101.1, WBC count is still at 27.4 -11/29: Preliminary blood cultures are negative x2 -11/29: Urine cultures negative -11/29: Sputum cultures growing yeast 12/01; T-max 101.2?, negative venous Dopplers, may have to do a CT scan of chest abdomen and pelvis 12/02: T-max 100.8?, WBC count rising to 29.9, CT scan of the chest showed bilateral multifocal consolidation especially bilateral lower lobes, restarted cefepime and vancomycin (12/02) Continue antibiotics and is afebrile although WBC count is still elevated but gradually improving (3) Shock: Code(s): R57.9 - Shock, unspecified Status: Acute Assessment and Plan: RESOLVED Multifactorial shock secondary to sepsis and cardiogenic Off levophed and vasopressin Off hydrocortisone Hold further IV fluids due to volume overload (4) DKA (diabetic ketoacidosis): Qualifiers: Diabetes mellitus type: type 1 Diabetes mellitus complication detail: without coma Qualified Code(s): E10.10 - Type 1 diabetes mellitus with ketoacidosis without coma Code(s): E11.10 - Type 2 diabetes mellitus with ketoacidosis without coma Status: Acute Assessment and Plan: RESOLVED Patient on presentation was in DKA and was started on IV insulin infusion. Her anion gap has closed and she has been transition to subcutaneous insulin. Blood glucose was elevated yesterday evening and patient was restarted on insulin infusion. 11/27: Off insulin infusion -continue Accu-Cheks and sliding scale insulin q.4 hours (5) Acute kidney injury superimposed on CKD: Code(s): N17.9 - Acute kidney failure, unspecified; N18.9 - Chronic kidney disease, unspecified Status: Acute Assessment and Plan: Patient has history of chronic kidney disease likely secondary to diabetes and hypertension and now presented with much elevated creatinine which is likely multifactorial and secondary to sepsis, hypoxia and cardiac arrest. She also received IV contrast for her CTA although that is probably not
[2023-12-08] MEDS: DEXTROSE 5%/0.9% SOD CHL 1,000 ML 80 ML IV CONT (09:47)
--- NOTE | 2023-12-08 10:26 | P.PNNP_ITS ---
Progress Note: A&P Assessment and Plan (1) JOHN PAUL (acute kidney injury): Code(s): N17.9 - Acute kidney failure, unspecified Status: Acute Assessment and Plan: * ATN due to multifactorial etiology: * cardiac arrest * hemodynamic instability * sepsis/infection * hypoxia * contrast exposure (CTA of chest on admission) * pre-renal factors * diuretic therapy prior to admission * evaluation to date: * CT scan of abdomen without obstruction * renal ultrasound left renal scarring and volume loss * CPK normal * urine electrolytes prerenal * urine eosinophils negative * moderate proteinuria * HD do on Sunday. * The patient will get a cardiac catheterization on Sunday and will get dialysis after that. * She is due for a tunneled dialysis catheter. * continue to follow trend of labs and UOP for potential renal recovery (2) Stage 3b chronic kidney disease: Code(s): N18.32 - Chronic kidney disease, stage 3b Status: Chronic Assessment and Plan: * evidence of renal insufficiency/chronic kidney disease 2021 * creatinine seems to run around 1.3 - 1.7mg/dl * presumably due to hypertension, diabetes, and vascular disease (3) Sepsis: Code(s): A41.9 - Sepsis, unspecified organism Status: Acute Assessment and Plan: * suspect secondary to pneumonia based on imaging testing to date * white blood cell count still elevated * on Meropenem and vancomycin * off vasopressor therapy (4) Acute hypoxic respiratory failure: Code(s): J96.01 - Acute respiratory failure with hypoxia Status: Acute Assessment and Plan: * felt to be secondary to combination of pneumonia and pulmonary edema in conjunction with cardiac arrest * fluid removal with dialysis as tolerated however she does not tolerate this very well lately. Will remove a little bit less fluid on Sunday. * antibiotics for pneumonia * s/p tracheostomy and G-tube placement (on 12/07/23) * continue ventilator support with weaning as tolerated (5) Cardiac arrest: Code(s): I46.9 - Cardiac arrest, cause unspecified Status: Acute Assessment and Plan: * etiology not entirely clear: * pneumonia? * CHF? * hyperkalemia? * primary cardiac event? * trend of troponins (elevation could just be from cardiac arrest + CPR) * Echo shows limited views but seems grossly normal * Cardiology following - plan cardiac catheterization on Sunday (6) Diabetes: Code(s): E11.9 - Type 2 diabetes mellitus without complications Status: Chronic Assessment and Plan: * follow accu-cheks * glycemic control per all round logger/hospitalists Will continue to follow. Subjective Date/time seen: 12/08/23 10:26 Interval history: patient is awake. is in the room. Patient is comfortable on the vent. No pain. Exam Narrative: General: large WD/WN female sedated and on mechanical ventilation via tracheostomy Heart: normal S1 and S2; no rub or gallop Lungs: coarse upper airway breath sounds; decreased at bases Abdomen: soft, nontender, nondistended, positive bowel sounds Extremities: trace edema Skin: No rash Objective Data Vital Signs Vital Signs: Vital Signs - 24 hr 12/07/23 11:56 12/07/23 12:22 12/07/23 12:00 Temperature Pulse Rate 76 80 77 Respiratory Rate 24 H 23 H
--- NOTE | 2023-12-08 10:26 | PM.PNNEP ---
Progress Note: A&P Assessment and Plan (1) JOHN PAUL (acute kidney injury): Code(s): N17.9 - Acute kidney failure, unspecified Status: Acute Assessment and Plan: ATN due to multifactorial etiology: cardiac arrest hemodynamic instability sepsis/infection hypoxia contrast exposure (CTA of chest on admission) pre-renal factors diuretic therapy prior to admission evaluation to date: CT scan of abdomen without obstruction renal ultrasound left renal scarring and volume loss CPK normal urine electrolytes prerenal urine eosinophils negative moderate proteinuria HD do on Sunday. The patient will get a cardiac catheterization on Sunday and will get dialysis after that. She is due for a tunneled dialysis catheter. continue to follow trend of labs and UOP for potential renal recovery (2) Stage 3b chronic kidney disease: Code(s): N18.32 - Chronic kidney disease, stage 3b Status: Chronic Assessment and Plan: evidence of renal insufficiency/chronic kidney disease 2021 creatinine seems to run around 1.3 - 1.7mg/dl presumably due to hypertension, diabetes, and vascular disease (3) Sepsis: Code(s): A41.9 - Sepsis, unspecified organism Status: Acute Assessment and Plan: suspect secondary to pneumonia based on imaging testing to date white blood cell count still elevated on Meropenem and vancomycin off vasopressor therapy (4) Acute hypoxic respiratory failure: Code(s): J96.01 - Acute respiratory failure with hypoxia Status: Acute Assessment and Plan: felt to be secondary to combination of pneumonia and pulmonary edema in conjunction with cardiac arrest fluid removal with dialysis as tolerated however she does not tolerate this very well lately. Will remove a little bit less fluid on Sunday. antibiotics for pneumonia s/p tracheostomy and G-tube placement (on 12/07/23) continue ventilator support with weaning as tolerated (5) Cardiac arrest: Code(s): I46.9 - Cardiac arrest, cause unspecified Status: Acute Assessment and Plan: etiology not entirely clear: pneumonia? CHF? hyperkalemia? primary cardiac event? trend of troponins (elevation could just be from cardiac arrest + CPR) Echo shows limited views but seems grossly normal Cardiology following - plan cardiac catheterization on Sunday (6) Diabetes: Code(s): E11.9 - Type 2 diabetes mellitus without complications Status: Chronic Assessment and Plan: follow accu-cheks glycemic control per potash flaker/hospitalists Will continue to follow. Subjective Date/time seen: 12/08/23 10:26 Interval history: patient is awake. is in the room. Patient is comfortable on the vent. No pain. Exam Narrative: General: large WD/WN female sedated and on mechanical ventilation via tracheostomy Heart: normal S1 and S2; no rub or gallop Lungs: coarse upper airway breath sounds; decreased at bases Abdomen: soft, nontender, nondistended, positive bowel sounds Extremities: trace edema Skin: No rash Objective Data Vital Signs Vital Signs: Vital Signs - 24 hr 12/07/23 11:56 12/07/23 12:22 12/07/23 12:00 Temperature Pulse Rate 76 80 77 Respiratory Rate 24 H 23 H Blood Pressure 130/67 126/63 Pulse Oximetry 93 94 93 Oxygen Delivery Mechanical Ventilation Mechanical Ventilation Mechanical Ventilation Fraction of Inspired Oxygen 100 12/07/23 11:45 12/07/23 11:45 12/07/23 12:10 Temperature Pulse Rate 76 Respiratory Rate 30 H Blood Pressure Pulse Oximetry 95 Oxygen Delivery Mechanical Ventilation Fraction of Inspired Oxygen 100 100 12/07/23 12:18 12/07/23 11:45 12/07/23 11:45 Temperature 98.3 F Pulse Rate 80 80 76 Respiratory Rate 28 H 27 H 23 H Blood Pressure 138/61 Pulse Oximetry 94 Oxygen Delivery Fraction of Inspired Oxygen
[2023-12-08 10:49] LABS: Glucose Point of Care 99 mg/dl (65-105)
[2023-12-08 12:23] LABS: Glucose Point of Care 84 mg/dl (65-105)
[2023-12-08 14:06] LABS: Glucose Point of Care 109 mg/dl (65-105)
[2023-12-08] MEDS: MEROPENEM 500 MG in SODIUM CHLORIDE 0.9% IV 100 ML 200 ML IVPB (14:09)
--- NOTE | 2023-12-08 14:58 | PM.IMPN ---
Progress Note: A&P Assessment and Plan (1) Acute hypoxic respiratory failure: Code(s): J96.01 - Acute respiratory failure with hypoxia Status: Acute Assessment and Plan: Acute hypoxic respiratory failure likely secondary to combination of pneumonia and pulmonary edema Chest x-ray reviewed showing congestive changes. CTA 12/04 negative for PE but does show multifocal PNA. Patient was intubated on 11/23. Tracheostomy and Peg placed 12/07/23 Still having fevers off/on probably related to PNA. Continue antibiotics for pneumonia as below Wean vent as tolerated. Appreciate office support clerk input (2) Sepsis: Code(s): A41.9 - Sepsis, unspecified organism Status: Acute Assessment and Plan: CT chest on presentation showed patchy airspace opacities throughout the lungs: PNA or pulmonary edema BCx 11/23 and 11/29: negative Sputum Cx 11/23: negative Urine Cx 11/23 and 11/29 negative Sputum Cx 11/29: positive for yeast. Imaging as above Completed azithromycin Nasal MRSA was negative hence vancomycin was discontinued but then resumed Continues to be febrile at times and with leukocytosis to 40K Cefepime and vanco resumed on 12/02; Cefepime changed to meropenem on 12/03 WBC better but fevers have recurred. Drug fever? Viral? atelectasis? Continue abx to complete a course (3) Shock: Code(s): R57.9 - Shock, unspecified Status: Acute Assessment and Plan: Multifactorial shock secondary to sepsis and cardiogenic shock Off levophed and vasopressin Off hydrocortisone BP remaining stable (4) DKA (diabetic ketoacidosis): Qualifiers: Diabetes mellitus complication detail: without coma Diabetes mellitus type: type 1 Qualified Code(s): E10.10 - Type 1 diabetes mellitus with ketoacidosis without coma Code(s): E11.10 - Type 2 diabetes mellitus with ketoacidosis without coma Status: Acute Assessment and Plan: Patient on presentation was in DKA and was started on IV insulin infusion.? Her anion gap has closed 11/27:Off insulin infusion and was transition to subcutaneous insulin.? The patient's blood glucose was reviewed on 12/08 Glucose low again this morning. Lantus stopped and D5 added. Continue AccuCheks covering with sliding scale.? Hypoglycemia protocol available as needed.? Continue to monitor (5) Acute kidney injury superimposed on CKD: Code(s): N17.9 - Acute kidney failure, unspecified; N18.9 - Chronic kidney disease, unspecified Status: Acute Assessment and Plan: Patient has history of chronic kidney disease likely secondary to DM and HTN. Cr 1.3-1.7 prior to admission Patient presented with JOHN PAUL with Cr up to 5.6; multifactorial? to sepsis, hypoxia, cardiac arrest, IV contrast exposure Received IV fluids but became volume overloaded so fluids held Potassium has normalized? CT scan of the abd/pelvis 11/23 did not show any hydronephrosis or stone Renal US 11/25:?No evidence of hydronephrosis of either kidney.? Left renal scarring and volume loss CK level was normal Nephrology is following and appreciate their input. HD catheter placed 11/26 and dialysis started Dialysis per Nephrology Plan to place tunnelled catheter. Continue to monitor urine output, electrolytes and creatinine (6) Cardiac arrest: Code(s): I46.9 - Cardiac arrest, cause unspecified Status: Acute Assessment and Plan: Patient had cardiac arrest with unknown clear etiology.? Possible etiologies are respiratory failure from pneumonia and congestive heart failure and possibility of hyperkalemia leading to PEA Received empiric tPA in the ER for suspected PE but CT scan was negative for any pulmonary embolism Hyperkalemia was treated and potassium level has normalized EKG shows nonspecific ST-T changes. Troponin climbed to 0.21 which could be secondary to CPR and cardiac arrest. Bilat UE and LE venous doppler negative 12/01 for DVT. Left cephalic vein thrombosis noted. Rib
[2023-12-08 15:48] LABS: Glucose Point of Care 170 mg/dl (65-105)
[2023-12-08] MEDS: LORazepam INJ (*CRX) 2 MG/ML VIAL IV PUSH (15:49)
[2023-12-08] MEDS: VANCOMYCIN 500 MG/NS 100 ML 500 MG/100 ML BAG 100 MG IVPB (17:44)
--- NOTE | 2023-12-08 18:18 | WPDGIPROGNO ---
Progress Note: A&P Assessment and Plan (1) Acute hypoxic respiratory failure: Code(s): J96.01 - Acute respiratory failure with hypoxia Status: Acute Assessment and Plan: prolonged intubation after cardiac arrest and other complications now she is post trach and peg- tolerating tube feeding will follow as needed (2) Multifocal pneumonia: Code(s): J18.9 - Pneumonia, unspecified organism Status: Acute Assessment and Plan: treated (3) Cardiac arrest: Code(s): I46.9 - Cardiac arrest, cause unspecified Status: Acute Subjective Date/time seen: 12/08/23 18:18 Interval history: tolerating tube feeding at 40 ml/h Review of Systems Review of Systems: All systems reviewed & are unremarkable except as noted in HPI and below Exam Narrative: Gen - intubated via trach HEENT - nc/at Neck - Trach placed midline. HD catheter in the right IJ. TLC in the left IJ Chest - Clear anteriorly CV - RRR S1/S2. Abd - Soft, +BS. G Tube site clean and dry - Mijares secured draining clear yellow urine Ext - improved UE edema. No LE edema Neuro - patient awake and alert. follows commands. Psych - unable to assess. Skin - dried eschar LUE. Objective Data Vital Signs Vital Signs: Vital Signs - 24 hr 12/07/23 18:30 12/07/23 20:04 12/07/23 20:00 Temperature 98.9 F Pulse Rate 79 78 77 Respiratory Rate 20 20 20 Blood Pressure 112/62 Pulse Oximetry Oxygen Delivery Fraction of Inspired Oxygen 12/07/23 20:00 12/07/23 20:00 12/07/23 21:16 Temperature Pulse Rate 80 Respiratory Rate Blood Pressure Pulse Oximetry 96 Oxygen Delivery Mechanical Ventilation Fraction of Inspired Oxygen 80 80 12/07/23 20:20 12/07/23 20:20 12/07/23 20:00 Temperature Pulse Rate 79 80 77 Respiratory Rate 22 H Blood Pressure Pulse Oximetry 95 Oxygen Delivery Mechanical Ventilation Fraction of Inspired Oxygen 80 12/07/23 22:00 12/07/23 23:09 12/07/23 23:28 Temperature Pulse Rate 79 78 76 Respiratory Rate Blood Pressure Pulse Oximetry 98 Oxygen Delivery Mechanical Ventilation Fraction of Inspired Oxygen 80 12/08/23 02:29 12/08/23 02:30 12/08/23 00:00 Temperature Pulse Rate 78 78 76 Respiratory Rate 23 H 20 Blood Pressure Pulse Oximetry 99 Oxygen Delivery Mechanical Ventilation Fraction of Inspired Oxygen 80 12/08/23 00:00 12/08/23 00:00 12/07/23 22:00 Temperature Pulse Rate 83 Respiratory Rate 20 Blood Pressure 136/50 L Pulse Oximetry 99 Oxygen Delivery Mechanical Ventilation Fraction of Inspired Oxygen 80 80 12/08/23 00:00 12/08/23 02:00 12/08/23 04:00 Temperature 99.4 F 99.3 F Pulse Rate 76 77 Respiratory Rate 20 23 H Blood Pressure 104/54 L 111/56 L Pulse Oximetry 99 98 Oxygen Delivery Mechanical Ventilation Fraction of Inspired Oxygen 80 12/08/23 04:00 12/08/23 04:00 12/08/23 02:00 Temperature 99.5 F Pulse Rate 83 77 Respiratory Rate 20 Blood Pressure 129/65 Pulse Oximetry 97 Oxygen Delivery Fraction of Inspired Oxygen 80 12/08/23 04:13 12/08/23 00:00 12/08/23 05:02 Temperature Pulse Rate 83 77 83 Respiratory Rate 22 H Blood Pressure Pulse Oximetry 97 Oxygen Delivery Mechanical Ventilation Fraction of Inspired Oxygen 80 12/08/23 05:30 12/08/23 06:00 12/08/23 06:00 Temperature 99.8 F H Pulse Rate 83 84 84 Respiratory Rate 18 22 H Blood Pressure 122/71 Pulse Oximetry 99 Oxygen Delivery Fraction of Inspired Oxygen 12/07/23 20:30 12/08/23 02:40 12/08/23 06:03 Temperature Pulse Rate 80 81 84 Respiratory Rate 22 H 22 H Blood Pressure Pulse Oximetry 97 Oxygen Delivery Mechanical Ventilation Fraction of Inspired Oxygen 70 12/08/23 04:00 12/08/23 08:15 12/08/23 08:15 Temperature Pulse Rate 83 90 90 Respiratory Rate 29 H Blood Pressure Pulse Oximetry 94
[2023-12-08 18:40] LABS: Glucose Point of Care 227 mg/dl (65-105)
--- NOTE | 2023-12-08 18:45 | PC.NURSE ---
L Central line dressing not done today because new trach ties lie over dressing. Unable to get to dressing without loosening ties. Discussed with charge nurse and plan to do when trach more stable. Also, awaiting size 4 XLT trach for trach bag. Not available from central supply.
[2023-12-08 20:13] LABS: Glucose Point of Care 248 mg/dl (65-105)
[2023-12-08] MEDS: ALPRAZolam (*CRX) 0.5 MG TABLET FEED TUBE (20:43)
[2023-12-08] MEDS: ALTEPLASE 2 MG VIAL (CATHFLO) IV PUSH (22:01)
[2023-12-09] VITALS (33 sets, daily range): BP systolic 117–129; BP diastolic 52–81; PULSE 87–100; RESP 22–38; TEMP 36–37.5; O2SAT 92–100
[2023-12-09] MEDS: INSULIN ASPART (*BKC) 100 UNITS/ML SUB-Q ×5 (00:51→20:30)
[2023-12-09] MEDS: METOCLOPRAMIDE HCL INJ 10 MG/2 ML VIAL IV PUSH ×4 (00:52→17:38)
[2023-12-09 01:00] LABS: Glucose Point of Care 314 mg/dl (65-105)
[2023-12-09] MEDS: ALBUTEROL SULFATE NEB 2.5 MG/3 ML INH 5 MG INHALATION ×4 (01:45→20:38)
[2023-12-09] MEDS: LORazepam INJ (*CRX) 2 MG/ML VIAL IV PUSH ×2 (02:49→18:34)
[2023-12-09 04:49] LABS: Glucose Point of Care 294 mg/dl (65-105)
[2023-12-09 05:13] LABS: Hemoglobin 7.7 g/dL (12.0-15.0); Mean Corpuscular HGB Conc 28.5 g/dl (32-36); Mean Corpuscular Hemoglobin 26.1 pg (26-34); Mean Corpuscular Volume 91.5 fl (80-100); Mean Platelet Volume 10.5 fl (7.4-10.4); Platelet Count Result 457 k/mm3 (150-375); Red Blood Count 2.95 M/mm3 (4.2-5.4); Red Cell Distribution Width 14.9 % (11.5-14.5); White Blood Count 28.5 K/mm3 (4.5-10.0)
[2023-12-09 05:18] LABS: Alveolar/Arterial O2 Gradient 392.7 mmHg; Base Excess ABG -1.6 mEq/l (+/-2.0); Carboxyhemoglobin 0.8 % THb (0-2.0); Fractional Inspired Oxygen 70 %; HCO3 ABG 21.9 mEq/l (22.0-26.0); Methemoglobin ABG 0.3 %THb (0-1.5); Oxygen Content ABG 11.8 %vol (16.0-22.0); Oxygen Saturation ABG 95.3 % (95.0-100.0); Oxyhemoglobin 92.7 % THb (90.0-100.0); PCO2 ABG 32.3 mmHg (35.0-45.0); PO2 ABG 71.7 mmHg (80.0-100.0); PO2 FiO2 Ratio Arterial Blood 1.02 %; Reduced Hemoglobin 6.2 %THb (0-5.0)
[2023-12-09 05:32] LABS: Device VENTILATOR; Site Drawn RIGHT BRACHIAL
[2023-12-09 05:33] LABS: Arterial Blood Gas Vent Mode CMV; Arterial Blood Gas Ventilator rate 16 /MIN
[2023-12-09 05:34] LABS: Arterial Blood Gas PEEP 14 cmH2O; Arterial Blood Gas Tidal Volume 350 ml
[2023-12-09] MEDS: CENTRAL LINE FLUSH 10 ML IV PUSH ×3 (05:46→20:20)
[2023-12-09 06:03] LABS: Vancomycin Random 18.9 ug/mL (10-20)
[2023-12-09 06:12] LABS: Alanine Aminotransferase 44 U/L (6-35); Albumin Level 3.1 g/dL (3.5-5.1); Alkaline Phosphatase 259 U/L (38-126); Anion Gap 10 mmol/L (8-16); Aspartate Amino Transferase 30 U/L (14-36); Bilirubin,Total 0.9 mg/dL (0.2-1.3); Blood Urea Nitrogen 60 mg/dL (7-17); Calcium 9.3 mg/dL (8.4-10.2); Carbon Dioxide 24 mmol/L (22-30); Chloride 99 mmol/L (98-107); Estimated CRCL calculation 38 ml/min; Estimated Glomerular Filt Rate 27; Glucose 304 mg/dL (65-110); Phosphorus 5.1 mg/dL (2.5-4.5); Potassium 3.7 mmol/L (3.4-5.0); Sodium 133 mmol/L (137-145)
--- NOTE | 2023-12-09 08:00 | PC.NURSE ---
Holding meds at this time per physician, waiting to verify peg tube placement with ct
[2023-12-09 08:31] LABS: Glucose Point of Care 219 mg/dl (65-105)
[2023-12-09] MEDS: IPRATROPIUM BR 0.02% INH SOLN 0.5 MG/2.5 ML VIAL INHALATION ×3 (08:31→20:38)
[2023-12-09] MEDS: fentaNYL CITRATE INJ (*CRX) 100 MCG/2 ML VIAL 25 MCG IV PUSH (08:39)
--- NOTE | 2023-12-09 08:45 | WPDINTPN ---
Progress Note: A&P Assessment and Plan (1) Acute hypoxic respiratory failure: Code(s): J96.01 - Acute respiratory failure with hypoxia Status: Acute Assessment and Plan: Acute hypoxic respiratory failure likely secondary to combination of pneumonia and pulmonary edema, ? ARDS 2/2 status post tracheostomy. Procedure was complicated. Please refer to ENT op note. A size 6 trachea was able to be placed with a flap she has size 6 proximal XLT tracheostomy Chest x-ray and ABG reviewed -chest x-ray this morning atelectasis vs pneumonia -currently on 70 % FiO2 and peep of 14. Will try to wean off FiO2 -continue dialysis to remove fluid -Continue bronchodilators -off of continue sedation -continue antibiotics for pneumonia as below 12/02 CT scan of the chest abdomen and pelvis, since patient has had fevers and elevated WBC count IMPRESSION: 1. Multifocal consolidation in the lungs, consistent with pneumonia. 2: Mediastinal lymphadenopathy, likely reactive. 12/02: CT scan of the brain in sinus without contrast IMPRESSION: 1. No acute intracranial abnormality. No evidence for significant sinus disease. 12/04 chest CTA Limited evaluation of subsegmental arteries. No CT evidence of acute central or segmental pulmonary embolus. Unchanged findings consistent with multifocal pneumonia. Minimal lower tracheal secretions. Mediastinal and bilateral hilar lymphadenopathy. (2) Sepsis: Code(s): A41.9 - Sepsis, unspecified organism Status: Acute Assessment and Plan: CT scan done on presentation showed patchy airspace opacities throughout the lungs consistent with pneumonia or pulmonary edema 11/23: Blood, sputum and urine cultures are negative -Continue empiric cefepime, status post 5 days of azithromycin Nasal MRSA was negative hence vancomycin discontinued in light of worsening renal function -11/29: Patient has been febrile of life with a T-max of 101.1, WBC count is still at 27.4 -11/29: Preliminary blood cultures are negative x2 -11/29: Urine cultures negative -11/29: Sputum cultures growing yeast 12/01; T-max 101.2?, negative venous Dopplers, may have to do a CT scan of chest abdomen and pelvis 12/02: T-max 100.8?, WBC count rising to 29.9, CT scan of the chest showed bilateral multifocal consolidation especially bilateral lower lobes, restarted cefepime and vancomycin (12/02) 2/4 WBC increased. Patient now experiencing abdominal pain Continue antibiotics Check CT abdomen pelvis. Check lipase. Will repeat CT chest Will obtain peripheral IV and remove central venous catheter (3) Abdominal pain: Code(s): R10.9 - Unspecified abdominal pain Status: Acute Assessment and Plan: PEG tube placed 2/2 tube feeds were resumed and advanced to 40 mL yesterday Overnight patient started complaining of abdominal pain. Tube feeds were held and GI was notified. KUB was done On my review KUB shows gas-filled stomach. Tube feeds held. I hooked up PEG tube to suction and 400 mL of tube feeds were suctioned out. Continue PEG tube to L IS Check CT scan (4) Acute kidney injury superimposed on CKD: Code(s): N17.9 - Acute kidney failure, unspecified; N18.9 - Chronic kidney disease, unspecified Status: Acute Assessment and Plan: Patient has history of chronic kidney disease likely secondary to diabetes and hypertension and now presented with much elevated creatinine which is likely multifactorial and secondary to sepsis, hypoxia and cardiac arrest. She also received IV contrast for her CTA although that is probably not responsible for her JOHN PAUL -She has received fluids and now appears to be volume overloaded hence further fluids will be held -Potassium has normalized with treatment and will be monitored -CT scan of the abdomen did not show any hydronephrosis or stone -11/25 Renal ultrasound: IMPRESSION: No evidence of hydronephrosis of either kidney Left renal scarring and volume loss CK level
--- NOTE | 2023-12-09 09:23 | PM.PNCARD ---
Progress Note: A&P Assessment and Plan (1) Cardiac arrest: Code(s): I46.9 - Cardiac arrest, cause unspecified Status: Acute Plan 43-year-old white female with out of hospital PEA arrest. Unclear etiology, possibly related to hyperkalemia which was identified prior to the event. She required mechanical ventilation and is status post tracheostomy; and PEG tube placement. On telemetry, she has been in sinus rhythm. Patient has been evaluated by cardiology team previously and is anticipated to undergo cardiac catheterization tomorrow to rule out any significant obstructive CAD. Keep NPO from midnight. Continue current supportive management. Further recommendation will follow after cardiac catheterization is complete. Subjective Date/time seen: 12/09/23 09:23 Interval history: Date of service: 12/29 Interval history: Patient lying in the bed, no acute distress. Unable to talk, status post trach. In sinus rhythm on telemetry. Exam Narrative: PHYSICAL EXAMINATION: GENERAL: Obese female, alert MENTAL STATUS: No agitation EYES: Extraocular movements intact, pallor EARS: External ears appear normal NOSE: Normal and patent, no discharge MOUTH: Mucous membranes moist, tongue normal NECK: Status post trach CHEST: Ventilatory sounds HEART: Normal rate, regular rhythm, normal S1 and S2 ABDOMEN: Soft, nontender NEUROLOGICAL: Alert MUSCULOSKELETAL: No major deformity, no amputation EXTREMITIES: Trace pedal edema, no clubbing, no cyanosis SKIN: no rash on the exposed area, no cyanosis PSYCHIATRIC: No agitation Objective Data Vital Signs Vital Signs: Vital Signs - 24 hr 12/08/23 10:00 12/08/23 11:17 12/08/23 12:00 Temperature 38.4 C H 38.2 C H Pulse Rate 103 H 101 H 98 Respiratory Rate 22 H 24 H Blood Pressure 137/60 127/64 Pulse Oximetry 98 98 97 Oxygen Delivery Mechanical Ventilation Fraction of Inspired Oxygen 70 12/08/23 12:00 12/08/23 13:45 12/08/23 13:45 Temperature Pulse Rate 98 98 Respiratory Rate 22 H Blood Pressure Pulse Oximetry 98 Oxygen Delivery Mechanical Ventilation Fraction of Inspired Oxygen 80 70 12/08/23 14:00 12/08/23 15:54 12/08/23 16:00 Temperature 37.7 C H 37.7 C H Pulse Rate 97 100 Respiratory Rate 22 H 18 Blood Pressure 134/66 137/68 Pulse Oximetry 99 99 Oxygen Delivery Fraction of Inspired Oxygen 80 12/08/23 16:45 12/08/23 17:50 12/08/23 20:09 Temperature 37.4 C Pulse Rate 93 101 H 101 H Respiratory Rate 24 H 26 H Blood Pressure 141/64 H Pulse Oximetry 91 95 Oxygen Delivery Mechanical Ventilation Fraction of Inspired Oxygen 70 12/08/23 20:09 12/08/23 20:43 12/08/23 20:00 Temperature Pulse Rate 101 H 102 H Respiratory Rate Blood Pressure Pulse Oximetry 95 Oxygen Delivery Mechanical Ventilation Mechanical Ventilation Fraction of Inspired Oxygen 70 70 12/08/23 20:00 12/08/23 20:01 12/08/23 22:19 Temperature 37.0 C Pulse Rate 102 H 100 Respiratory Rate 22 H Blood Pressure 113/80 Pulse Oximetry 95 95 Oxygen Delivery Mechanical Ventilation Fraction of Inspired Oxygen 70 70 12/09/23 01:48 12/09/23 01:49 12/08/23 20:00 Temperature Pulse Rate 98 100 101 H Respiratory Rate 24 H Blood Pressure Pulse Oximetry 97 Oxygen Delivery Mechanical Ventilation Fraction of Inspired Oxygen 70 12/08/23 22:00 12/09/23 00:00 12/09/23 00:00 Temperature Pulse Rate 97 Respiratory Rate Blood Pressure Pulse Oximetry Oxygen Delivery Mechanical Ventilation Fraction of Inspired Oxygen 70 70 12/09/23 00:00 12/09/23 02:00 12/08/23 22:01 Temperature 36.8 C Pulse Rate 92 92 96 Respiratory Rate 26 H Blood Pressure 130/66 Pulse Oximetry 95 Oxygen Delivery Fraction of Inspired Oxygen 12/09/23 00:01 12/09/23 02:01 12/09/23 04:01 Temperature 36.3 C L 36.0 C L 36.2 C L Pulse Rate 92 91 94 Respiratory Rate
[2023-12-09 09:56] LABS: Lipase 21 U/L (23-300)
--- NOTE | 2023-12-09 10:44 | PC.NURSE ---
pt made npo except for meds per dr chandler, ct results verified, pt resting in bed, hob elevated, peg tube suction set to interm., call light in reach
[2023-12-09] MEDS: PANTOPRAZOLE SODIUM IV 40 MG VIAL IV PUSH ×2 (11:40→20:20)
[2023-12-09] MEDS: carvediloL 25 MG TABLET PO ×2 (11:41→20:19)
[2023-12-09] MEDS: ASPIRIN 325 MG TABLET FEED TUBE (11:42)
[2023-12-09] MEDS: amLODIPine BESYLATE 5 MG TABLET 10 MG PO (11:42)
[2023-12-09] MEDS: MINERAL OIL/WHITE PETROLATUM OINTMENT 1 APPLIC EACH EYE ×2 (11:45→20:20)
[2023-12-09 11:54] LABS: Glucose Point of Care 205 mg/dl (65-105)
--- NOTE | 2023-12-09 12:38 | PM.IMPN ---
Progress Note: A&P Assessment and Plan (1) Abdominal pain: Code(s): R10.9 - Unspecified abdominal pain Status: Acute Assessment and Plan: Patient with abd pain 2 days after PEG placed. KUB shows distended stomach. CT Ch/A/P showing no acute findings and that contrast in within the stomach. Could be related to gastric distention better with GTube to suction. Already on Reglan. Monitor. (2) Acute hypoxic respiratory failure: Code(s): J96.01 - Acute respiratory failure with hypoxia Status: Acute Assessment and Plan: Acute hypoxic respiratory failure likely secondary to combination of pneumonia and pulmonary edema Chest x-ray reviewed showing congestive changes. CTA 12/04 negative for PE but does show multifocal PNA. Patient was intubated on 11/23. Tracheostomy and Peg placed 12/07/23 Still having fevers off/on probably related to PNA. CT Chest today showing dependent airspace opacities worse LLL Now on PEEP 14 and FiO2 70%. Continue antibiotics for pneumonia as below Wean vent as tolerated. Appreciate driver service technician input. Discussed (3) Sepsis: Code(s): A41.9 - Sepsis, unspecified organism Status: Acute Assessment and Plan: CT chest on presentation showed patchy airspace opacities throughout the lungs: PNA or pulmonary edema BCx 11/23 and 11/29: negative Sputum Cx 11/23: negative Urine Cx 11/23 and 11/29 negative Sputum Cx 11/29: positive for yeast. Imaging as above Completed azithromycin Nasal MRSA was negative hence vancomycin was discontinued but then resumed Continues to be febrile at times and with leukocytosis to 40K Cefepime and vanco resumed on 12/02; Cefepime changed to meropenem on 12/03 WBC back up and having fevers again. Drug fever? Viral? atelectasis? Continue abx to complete a course. Check viral panel? (4) Shock: Code(s): R57.9 - Shock, unspecified Status: Acute Assessment and Plan: Multifactorial shock secondary to sepsis and cardiogenic shock Off levophed and vasopressin Off hydrocortisone BP remaining stable (5) DKA (diabetic ketoacidosis): Qualifiers: Diabetes mellitus type: type 1 Diabetes mellitus complication detail: without coma Qualified Code(s): E10.10 - Type 1 diabetes mellitus with ketoacidosis without coma Code(s): E11.10 - Type 2 diabetes mellitus with ketoacidosis without coma Status: Acute Assessment and Plan: Patient on presentation was in DKA and was started on IV insulin infusion.? Her anion gap has closed 11/27:Off insulin infusion and was transition to subcutaneous insulin.? Glucose dropped so Lantus decreased then stopped and ultimately D5 added. The patient's blood glucose was reviewed on 12/09 Glucose back up to 200's. Dextrose stopped Continue AccuCheks covering with sliding scale.? Hypoglycemia protocol available as needed.? Continue to monitor (6) Acute kidney injury superimposed on CKD: Code(s): N17.9 - Acute kidney failure, unspecified; N18.9 - Chronic kidney disease, unspecified Status: Acute Assessment and Plan: Patient has history of chronic kidney disease likely secondary to DM and HTN. Cr 1.3-1.7 prior to admission Patient presented with JOHN PAUL with Cr up to 5.6; multifactorial? to sepsis, hypoxia, cardiac arrest, IV contrast exposure Received IV fluids but became volume overloaded so fluids held Potassium has normalized? CT scan of the abd/pelvis 11/23 did not show any hydronephrosis or stone Renal US 11/25:?No evidence of hydronephrosis of either kidney.? Left renal scarring and volume loss CK level was normal Nephrology is following and appreciate their input. HD catheter placed 11/26 and dialysis started Dialysis per Nephrology Plan to place tunnelled catheter. Continue to monitor urine output, electrolytes and creatinine (7) Cardiac arrest: Code(s): I46.9 - Cardiac arrest, cause unspecified Status: Acute Assessment and Plan: Tej
[2023-12-09] MEDS: MEROPENEM 500 MG in SODIUM CHLORIDE 0.9% IV 100 ML 200 ML IVPB (13:52)
[2023-12-09 16:38] LABS: Glucose Point of Care 153 mg/dl (65-105)
--- NOTE | 2023-12-09 17:15 | PC.NURSE ---
while completing oral care pt became suddenly uncooperative, attempted to kick/scratch rn, while moving pt up in bed she flipped assisting nurse and gun welder off and began rolling her eyes and sticking out her tongue, in room, attempted to reorient pt, call light in reach
--- NOTE | 2023-12-09 17:47 | WPDGIPROGNO ---
Progress Note: A&P Assessment and Plan (1) Acute hypoxic respiratory failure: Code(s): J96.01 - Acute respiratory failure with hypoxia Status: Acute Assessment and Plan: prolonged intubation after cardiac arrest and other complications now she is post trach and peg- tolerating tube feeding but was having pain at site. CT scan abdomen showed Peg in good position without any complications continue tube feeding and advance to goal will follow as needed (2) Multifocal pneumonia: Code(s): J18.9 - Pneumonia, unspecified organism Status: Acute Assessment and Plan: on treatment s/p trach (3) Cardiac arrest: Code(s): I46.9 - Cardiac arrest, cause unspecified Status: Acute Subjective Date/time seen: 12/09/23 17:47 Interval history: patient was complaining of pain around G-tube site, no drainage and tube feeding has been working ok though Review of Systems Review of Systems: All systems reviewed & are unremarkable except as noted in HPI and below Exam Narrative: Gen - intubated via trach; awake and alert and can communicate her wishes HEENT - nc/at Neck - Trach placed midline with old blood/secretions around the site. HD catheter in the right IJ. TLC in the left IJ Chest - coarse BS anteriroly CV - RRR S1/S2. Tele showing no significant dysrhythmias Abd - G-Tube site clean and dry, no drainage, no redness, minimal tenderness at site. Abd soft, firm but not tense. - Mijares secured draining clear yellow urine Ext - in pedal edema Neuro - patient awake and alert. follows commands. Psych - unable to assess. Skin - warm and dry. dried eschar mid chest Objective Data Vital Signs Vital Signs: Vital Signs - 24 hr 12/08/23 17:50 12/08/23 20:09 12/08/23 20:09 Temperature 99.3 F Pulse Rate 101 H 101 H 101 H Respiratory Rate 24 H 26 H Blood Pressure 141/64 H Pulse Oximetry 95 95 Oxygen Delivery Mechanical Ventilation Fraction of Inspired Oxygen 70 12/08/23 20:43 12/08/23 20:00 12/08/23 20:00 Temperature Pulse Rate 102 H Respiratory Rate Blood Pressure Pulse Oximetry Oxygen Delivery Mechanical Ventilation Fraction of Inspired Oxygen 70 70 12/08/23 20:01 12/08/23 22:19 12/09/23 01:48 Temperature 98.6 F Pulse Rate 102 H 100 98 Respiratory Rate 22 H 24 H Blood Pressure 113/80 Pulse Oximetry 95 95 Oxygen Delivery Mechanical Ventilation Fraction of Inspired Oxygen 70 12/09/23 01:49 12/08/23 20:00 12/08/23 22:00 Temperature Pulse Rate 100 101 H 97 Respiratory Rate Blood Pressure Pulse Oximetry 97 Oxygen Delivery Mechanical Ventilation Fraction of Inspired Oxygen 70 12/09/23 00:00 12/09/23 00:00 12/09/23 00:00 Temperature Pulse Rate 92 Respiratory Rate Blood Pressure Pulse Oximetry Oxygen Delivery Mechanical Ventilation Fraction of Inspired Oxygen 70 70 12/09/23 02:00 12/08/23 22:01 12/09/23 00:01 Temperature 98.3 F 97.4 F L Pulse Rate 92 96 92 Respiratory Rate 26 H 24 H Blood Pressure 130/66 117/64 Pulse Oximetry 95 92 Oxygen Delivery Fraction of Inspired Oxygen 12/09/23 02:01 12/09/23 04:01 12/09/23 04:00 Temperature 96.8 F L 97.1 F L Pulse Rate 91 94 Respiratory Rate 22 H 28 H Blood Pressure 117/66 124/66 Pulse Oximetry 100 94 Oxygen Delivery Mechanical Ventilation Fraction of Inspired Oxygen 70 12/09/23 04:00 12/09/23 04:00 12/09/23 06:00 Temperature Pulse Rate 93 92 Respiratory Rate Blood Pressure Pulse Oximetry Oxygen Delivery Fraction of Inspired Oxygen 70 12/09/23 06:01 12/09/23 08:31 12/09/23 08:35 Temperature 97.3 F L Pulse Rate 92 92 91 Respiratory Rate 27 H 24 H Blood Pressure 127/70 Pulse Oximetry 94 95 Oxygen Delivery Mechanical Ventilation Fraction of Inspired Oxygen 70 12/09/23 08:00 12/09/23 08:00 12/09/23 08:00 Temperature Pulse Rate 91 91 Respiratory R
--- NOTE | 2023-12-09 18:25 | PC.NURSE ---
pt given ativan for respirations of 44, call light in reach, alarms on, will continue to monitor
[2023-12-09 20:35] LABS: Glucose Point of Care 214 mg/dl (65-105)
[2023-12-10] VITALS (50 sets, daily range): BP systolic 105–137; BP diastolic 48–74; PULSE 79–94; RESP 16–30; TEMP 36.1–37.6; O2SAT 90–98
[2023-12-10] MEDS: METOCLOPRAMIDE HCL INJ 10 MG/2 ML VIAL IV PUSH ×3 (00:18→18:44)
[2023-12-10 00:39] LABS: Glucose Point of Care 187 mg/dl (65-105)
[2023-12-10] MEDS: ALBUTEROL SULFATE NEB 2.5 MG/3 ML INH 5 MG INHALATION ×4 (01:55→19:38)
[2023-12-10] MEDS: IPRATROPIUM BR 0.02% INH SOLN 0.5 MG/2.5 ML VIAL INHALATION ×4 (01:55→19:38)
[2023-12-10] MEDS: INSULIN ASPART (*BKC) 100 UNITS/ML SUB-Q ×2 (04:18→23:59)
[2023-12-10 04:24] LABS: Glucose Point of Care 240 mg/dl (65-105)
[2023-12-10 04:31] LABS: Hematocrit 25.2 % (37.0-47.0); Hemoglobin 7.5 g/dL (12.0-15.0); Mean Corpuscular HGB Conc 29.8 g/dl (32-36); Mean Corpuscular Hemoglobin 26.9 pg (26-34); Mean Corpuscular Volume 90.3 fl (80-100); Mean Platelet Volume 10.5 fl (7.4-10.4); Platelet Count Result 485 k/mm3 (150-375); Red Blood Count 2.79 M/mm3 (4.2-5.4); White Blood Count 22.3 K/mm3 (4.5-10.0)
[2023-12-10 04:42] LABS: Alanine Aminotransferase 38 U/L (6-35); Alkaline Phosphatase 231 U/L (38-126); Anion Gap 9 mmol/L (8-16); Aspartate Amino Transferase 31 U/L (14-36); Bilirubin,Total 0.9 mg/dL (0.2-1.3); Blood Urea Nitrogen 68 mg/dL (7-17); Calcium 9.4 mg/dL (8.4-10.2); Carbon Dioxide 25 mmol/L (22-30); Chloride 101 mmol/L (98-107); Estimated CRCL calculation 39 ml/min; Estimated Glomerular Filt Rate 29; Glucose 279 mg/dL (65-110); Magnesium 1.9 mg/dL (1.6-2.3); Phosphorus 5.3 mg/dL (2.5-4.5); Potassium 3.8 mmol/L (3.4-5.0); Sodium 135 mmol/L (137-145)
[2023-12-10 04:48] LABS: Vancomycin Trough 13.9 ug/mL (10.0-20.0)
[2023-12-10] MEDS: CENTRAL LINE FLUSH 10 ML IV PUSH ×3 (05:06→20:30)
[2023-12-10 07:38] LABS: Glucose Point of Care 180 mg/dl (65-105)
--- NOTE | 2023-12-10 08:27 | WPDINTPN ---
Progress Note: A&P Assessment and Plan (1) Acute hypoxic respiratory failure: Code(s): J96.01 - Acute respiratory failure with hypoxia Status: Acute Assessment and Plan: Acute hypoxic respiratory failure likely secondary to combination of pneumonia and pulmonary edema, ? ARDS 2/2 status post tracheostomy. Procedure was complicated. Please refer to ENT op note. A size 6 trachea was able to be placed with a flap she has size 6 proximal XLT tracheostomy Chest x-ray and ABG reviewed -chest x-ray this morning atelectasis vs pneumonia -currently on 55 % FiO2 and peep of 14. I will decrease PEEP to 12. Continue to wean FiO2 -continue dialysis to remove fluid -Continue bronchodilators -off of continue sedation -continue antibiotics for pneumonia as below 12/02 CT scan of the chest abdomen and pelvis, since patient has had fevers and elevated WBC count IMPRESSION: 1. Multifocal consolidation in the lungs, consistent with pneumonia. 2: Mediastinal lymphadenopathy, likely reactive. 12/02: CT scan of the brain in sinus without contrast IMPRESSION: 1. No acute intracranial abnormality. No evidence for significant sinus disease. 12/04 chest CTA Limited evaluation of subsegmental arteries. No CT evidence of acute central or segmental pulmonary embolus. Unchanged findings consistent with multifocal pneumonia. Minimal lower tracheal secretions. Mediastinal and bilateral hilar lymphadenopathy. (2) Sepsis: Code(s): A41.9 - Sepsis, unspecified organism Status: Acute Assessment and Plan: CT scan done on presentation showed patchy airspace opacities throughout the lungs consistent with pneumonia or pulmonary edema 11/23: Blood, sputum and urine cultures are negative -Continue empiric cefepime, status post 5 days of azithromycin Nasal MRSA was negative hence vancomycin discontinued in light of worsening renal function -11/29: Patient has been febrile of life with a T-max of 101.1, WBC count is still at 27.4 -11/29: Preliminary blood cultures are negative x2 -11/29: Urine cultures negative -11/29: Sputum cultures growing yeast 12/01; T-max 101.2?, negative venous Dopplers, may have to do a CT scan of chest abdomen and pelvis 12/02: T-max 100.8?, WBC count rising to 29.9, CT scan of the chest showed bilateral multifocal consolidation especially bilateral lower lobes, restarted cefepime and vancomycin (12/02) 2/4 WBC increased. Patient now experiencing abdominal pain Continue antibiotics CT abdomen pelvis as below. Normal lipase. CVC removed 2/5 afebrile overnight and WBC improved (3) Abdominal pain: Code(s): R10.9 - Unspecified abdominal pain Status: Acute Assessment and Plan: PEG tube placed 2/2 tube feeds were resumed and advanced to 40 mL yesterday Overnight patient started complaining of abdominal pain. Tube feeds were held and GI was notified. KUB was done On my review KUB showed gas-filled stomach. Tube feeds held. I hooked up PEG tube to suction and 400 mL of tube feeds were suctioned out. Continue PEG tube to L IS CT scan Interval PEG tube insertion without evidence of extravasation of injected contrast material. Lipase normal Symptoms improved now and patient denies any pain. Tube feeds were started yesterday at a low rate currently on hold for cardiac catheterization (4) Acute kidney injury superimposed on CKD: Code(s): N17.9 - Acute kidney failure, unspecified; N18.9 - Chronic kidney disease, unspecified Status: Acute Assessment and Plan: Patient has history of chronic kidney disease likely secondary to diabetes and hypertension and now presented with much elevated creatinine which is likely multifactorial and secondary to sepsis, hypoxia and cardiac arrest. She also received IV contrast for her CTA although that is probably not responsible for her JOHN PAUL -She has received fluids and now appears to be volume overloaded hence further fluids will be held -Fernie
[2023-12-10] MEDS: carvediloL 25 MG TABLET PO ×2 (08:46→20:22)
[2023-12-10] MEDS: ASPIRIN 325 MG TABLET FEED TUBE (08:46)
[2023-12-10] MEDS: PANTOPRAZOLE SODIUM IV 40 MG VIAL IV PUSH ×2 (08:46→20:22)
[2023-12-10 09:47] LABS: Glucose Point of Care 181 mg/dl (65-105)
--- NOTE | 2023-12-10 11:18 | PCFNICU ---
ICU Rounding Note: Pt current nutrition is NPO -TF on hold for cardiac cath. Nutrition recommendation: Resume tube feeding orders when medically cleared: Nepro @ 40 ml/h + prosource TF BID Last recorded weight is 101.7 kg. Bowel Motility: Last Bm charted 12/04/23 Labs Reviewed: Hgb 7.8, Hct 27, Alb 2.8, Na 136, GFR 31, BUN 47, Cre 1.8, Glu 248 Meds Noted: Reglan, Zofran, protonix Skin: No pressure related breakdown Additional Notes: Tube feeding residuals were high and were suctioned. NPO today. Following daily in ICU rounds. Will monitor weight, labs, skin, meds, tube feeding tolerance every Sunday and Sunday. .
[2023-12-10 11:57] LABS: Glucose Point of Care 215 mg/dl (65-105)
--- NOTE | 2023-12-10 13:23 | ECG_ITS ---
Measurements Intervals [place] Rate: 85 P: 44 VA: 125 QRS: 55 QRSD: 91 T: 64 QT: 368 QTc: 439 Interpretive Statements SINUS RHYTHM POSSIBLE ANTERIOR MYOCARDIAL INFARCTION [30 ms Q WAVE IN V3/V4, OR R < 0.2 mV IN V4], ABNORMAL ECG COMPARED TO ECG 11/24/2023 14:02:22 NO DIFFERENCE Electronically Signed On 12-10-2023 17:00:43 [employer] by Pavan Cartagena M.D.
--- NOTE | 2023-12-10 13:26 | WPDCARDPROC ---
Cardiac Cath Procedure Note Date of procedure:: 12/10/23 Performing physician:: Pavan Cartagena MD Indication:: status post out of hospital PE a arrest renal failure on hemodialysis diabetes morbid obesity Brief clinical history:: this is a 43-year-old woman who entered the hospital about 2 weeks ago after having out of hospital cardiac arrest in the setting of significant hyperkalemia. Following resuscitation she has been in the hospital on the ICU on the ventilator. The a tracheostomy and a PEG tube. Hemodialysis has been instituted through a temporary catheter and catheterization has been recommended to evaluate coronary anatomy. This factors include diabetes and hypertension. Procedure Procedure performed:: Coronary angiography left ventriculography PCI(JAQUELIN) to the mid LAD and proximal RCA Sedation/Medication given:: fentanyl 50 mg Versed 2 mg case start time 12:19 p.m. case end time 1:17 p.m. sedation provided by Pepper Emery RN, trained observer Access site:: right femoral artery Estimated blood loss:: 25-30 cc Procedure note:: patient was brought to the cardiac catheterization lab on the ventilator with a tracheostomy in place and was placed on the table the right femoral triangle was prepped and draped in the normal fashion. The anesthesia was provided with 1% lidocaine infiltrated locally. following this the right femoral artery was punctured using the modified Seldinger technique and a 5 [place] vascular sheath was placed. I then used 5 [place] FL4 and JR4 catheters to engage and inject the left right coronary arteries. The right coronary was then injected with a 5 [place] Issa catheter. Following this a pigtail catheter was used to measure left-sided hemodynamics and to inject the left ventriculogram in the [place] projection. After this the cineangiograms were reviewed and PCI of the LAD and right coronary arteries were recommended and carried out as detailed below. Prior to PCI the 5 [place] sheath was upsized over a guidewire for 6 [place] device. Following this the patient was anticoagulated using a bolus and infusion of Angiomax with renally adjusted dosing. she of she also received 600 mg of clopidogrel down the OG tube. following PCI the catheters and guidewires were removed and the 6 [place] sheath was sutured into position using 2-0 silk. Patient was taken back to the ICU for post PCI recovery and for hemodialysis this afternoon. Findings:: Hemodynamics: Central aortic pressure was 104 over 50 left ventricle 104 over 10 end-diastolic pressure 24 there is no gradient on pullback across the aortic valve. Left ventricle: The LV is mildly enlarged. The mid to apical anterior wall is are severely hyperdynamic as is the apex. The global ejection fraction is visually estimated to be 45%. The left main coronary artery is short and is patent the left anterior descending is a medium to small caliber vessel with high-grade stenosis of 95% in the midportion. There was JAYLA 3 flow in the LAD. The high-grade lesion is after a septal branch in just prior to a small-sized 2nd diagonal. The circumflex is a medium caliber artery giving rise to the marginal branches and angiographically has mild irregularities proximally in the midportion. There is a 70-80% stenosis in the last terminal posterior branch of the circumflex. Vessel is very small at this point. The right coronary artery is medium in caliber and dominant to the posterior circulation there is a 99% stenosis in the proximal RCA just after which there is an area of poststenotic dilatation. There is JAYLA 2 flow in the RCA at the start of the case. Intervention: The left coronary artery was engaged using a CLS 3.0 guiding catheter. I used a 0.014 [place] coronary guidewire advanced into the LAD and without difficulty through the target lesion into the distal portion of the LAD. The target lesion was then pr
[2023-12-10 14:09] LABS: Glucose Point of Care 225 mg/dl (65-105)
--- NOTE | 2023-12-10 15:18 | PM.PNNEP ---
Progress Note: A&P Assessment and Plan (1) JOHN PAUL (acute kidney injury): Code(s): N17.9 - Acute kidney failure, unspecified Status: Acute Assessment and Plan: ATN due to multifactorial etiology: cardiac arrest hemodynamic instability sepsis/infection hypoxia contrast exposure (CTA of chest on admission) pre-renal factors diuretic therapy prior to admission evaluation to date: CT scan of abdomen without obstruction renal ultrasound left renal scarring and volume loss CPK normal urine electrolytes prerenal urine eosinophils negative moderate proteinuria HD today (more so for clearamce of contrast from cardiac catheterization) increase in UOP as well as relative stability in creatinine -- possible renal recovery? continue to follow trend of labs and UOP (2) Stage 3b chronic kidney disease: Code(s): N18.32 - Chronic kidney disease, stage 3b Status: Chronic Assessment and Plan: evidence of renal insufficiency/chronic kidney disease 2021 creatinine seems to run around 1.3 - 1.7mg/dl presumably due to hypertension, diabetes, and vascular disease (3) Sepsis: Code(s): A41.9 - Sepsis, unspecified organism Status: Acute Assessment and Plan: suspect secondary to pneumonia based on imaging testing to date white blood cell count still elevated on Meropenem and vancomycin off vasopressor therapy (4) Acute hypoxic respiratory failure: Code(s): J96.01 - Acute respiratory failure with hypoxia Status: Acute Assessment and Plan: felt to be secondary to combination of pneumonia and pulmonary edema in conjunction with cardiac arrest fluid removal with dialysis as tolerated however she does not tolerate this very well lately. Will remove a little bit less fluid on Sunday. antibiotics for pneumonia s/p tracheostomy and G-tube placement (on 12/07/23) continue ventilator support with weaning as tolerated (5) Cardiac arrest: Code(s): I46.9 - Cardiac arrest, cause unspecified Status: Acute Assessment and Plan: etiology not entirely clear: pneumonia? CHF? hyperkalemia? primary cardiac event? trend of troponins (elevation could just be from cardiac arrest + CPR) Echo shows limited views but seems grossly normal Cardiology following - plan cardiac catheterization on Sunday (6) CAD (coronary artery disease): Code(s): I25.10 - Atherosclerotic heart disease of [place] coronary artery without angina pectoris Status: Acute Assessment and Plan: s/p cardiac cath (on 12/10/23) with findings noted: severe 2 vessel CAD with high-grade lesions in the mid LAD and proximal RCA successful revascularization of both lesions using drug eluting stents EF ~ 45% continue onging medical management (7) Diabetes: Code(s): E11.9 - Type 2 diabetes mellitus without complications Status: Chronic Assessment and Plan: follow accu-cheks glycemic control per technical solutions consultant/hospitalists Will continue to follow. Subjective Date/time seen: 12/10/23 15:18 Interval history: Follow-up for acute kidney injury/acute renal failure on chronic kidney disease. Tolerating hemodialysis treatment at the time of my visit (seen on HD at 3:08PM); s/p cardiac catheterization with findings/interventions noted; better urine output noted in the last 24 hours; remains on mechanical ventilation via tracheostomy but awake and responsive. Exam Narrative: General: large WD/WN female sedated and on mechanical ventilation via tracheostomy Heart: normal S1 and S2; no rub or gallop Lungs: coarse upper airway breath sounds; decreased at bases Abdomen: soft, nontender, nondistended, positive bowel sounds Extremities: trace edema Skin: No nodules Objective Data Vital Signs Vital Signs: Vital Signs Temp Pulse Resp BP Pulse Ox O2 Del Method FiO2 12/10/23 15:15 90 1
--- NOTE | 2023-12-10 15:18 | P.PNNP_ITS ---
Progress Note: A&P Assessment and Plan (1) JOHN PAUL (acute kidney injury): Code(s): N17.9 - Acute kidney failure, unspecified Status: Acute Assessment and Plan: * ATN due to multifactorial etiology: * cardiac arrest * hemodynamic instability * sepsis/infection * hypoxia * contrast exposure (CTA of chest on admission) * pre-renal factors * diuretic therapy prior to admission * evaluation to date: * CT scan of abdomen without obstruction * renal ultrasound left renal scarring and volume loss * CPK normal * urine electrolytes prerenal * urine eosinophils negative * moderate proteinuria * HD today (more so for clearamce of contrast from cardiac catheterization) * increase in UOP as well as relative stability in creatinine -- possible renal recovery? * continue to follow trend of labs and UOP (2) Stage 3b chronic kidney disease: Code(s): N18.32 - Chronic kidney disease, stage 3b Status: Chronic Assessment and Plan: * evidence of renal insufficiency/chronic kidney disease 2021 * creatinine seems to run around 1.3 - 1.7mg/dl * presumably due to hypertension, diabetes, and vascular disease (3) Sepsis: Code(s): A41.9 - Sepsis, unspecified organism Status: Acute Assessment and Plan: * suspect secondary to pneumonia based on imaging testing to date * white blood cell count still elevated * on Meropenem and vancomycin * off vasopressor therapy (4) Acute hypoxic respiratory failure: Code(s): J96.01 - Acute respiratory failure with hypoxia Status: Acute Assessment and Plan: * felt to be secondary to combination of pneumonia and pulmonary edema in conjunction with cardiac arrest * fluid removal with dialysis as tolerated however she does not tolerate this very well lately. Will remove a little bit less fluid on Sunday. * antibiotics for pneumonia * s/p tracheostomy and G-tube placement (on 12/07/23) * continue ventilator support with weaning as tolerated (5) Cardiac arrest: Code(s): I46.9 - Cardiac arrest, cause unspecified Status: Acute Assessment and Plan: * etiology not entirely clear: * pneumonia? * CHF? * hyperkalemia? * primary cardiac event? * trend of troponins (elevation could just be from cardiac arrest + CPR) * Echo shows limited views but seems grossly normal * Cardiology following - plan cardiac catheterization on Sunday (6) CAD (coronary artery disease): Code(s): I25.10 - Atherosclerotic heart disease of [place] coronary artery without angina pectoris Status: Acute Assessment and Plan: * s/p cardiac cath (on 12/10/23) with findings noted: * severe 2 vessel CAD with high-grade lesions in the mid LAD and proximal RCA * successful revascularization of both lesions using drug eluting stents * EF ~ 45% * continue onging medical management (7) Diabetes: Code(s): E11.9 - Type 2 diabetes mellitus without complications Status: Chronic Assessment and Plan: * follow accu-cheks * glycemic control per retail director/hospitalists Will continue to follow. Subjective Date/time seen: 12/10/23 15:18 Interval history: Follow-up for acute kidney injury/acute renal failure on chronic kidney disease. Tolerating hemodialysis treatment at the time of my visit (seen on HD at 3:08PM); s/p cardiac catheterization with findings/interventions noted; better urine output noted in the last 24 hours; remains on mechanical ventilation
[2023-12-10] MEDS: ALPRAZolam (*CRX) 0.5 MG TABLET FEED TUBE ×2 (15:27→19:10)
[2023-12-10] MEDS: EPOETIN ALFA 20,000 UNITS/ML VIAL 20000 UNITS IV PUSH (16:11)
[2023-12-10 17:00] LABS: Glucose Point of Care 136 mg/dl (65-105)
[2023-12-10] MEDS: HEPARIN SODIUM 1,000 UNITS/ML VIAL 4000 UNITS IV PUSH (18:14)
[2023-12-10] MEDS: MEROPENEM 500 MG in SODIUM CHLORIDE 0.9% IV 100 ML 200 ML IVPB (18:44)
[2023-12-10] MEDS: VANCOMYCIN 1,000 MG/NS 250 ML 1,000 MG/250 ML BAG 250 MG IVPB (18:46)
--- NOTE | 2023-12-10 19:10 | PM.IMPN ---
Progress Note: A&P Assessment and Plan (1) Abdominal pain: Code(s): R10.9 - Unspecified abdominal pain Status: Acute Assessment and Plan: Patient developed abd pain 2 days after PEG placed. KUB shows distended stomach. CT Ch/A/P showing no acute findings and that contrast in within the stomach. Could be related to gastric distention better with GTube to suction but still having abd pain. She remains on Reglan. Monitor. (2) Acute hypoxic respiratory failure: Code(s): J96.01 - Acute respiratory failure with hypoxia Status: Acute Assessment and Plan: Acute hypoxic respiratory failure likely secondary to combination of pneumonia and pulmonary edema Chest x-ray reviewed showing congestive changes. Patient was intubated on 11/23. CTA 12/04 negative for PE but does show multifocal PNA. Tracheostomy and Peg placed 12/07/23 CT Chest 12/09 showing dependent airspace opacities worse LLL Better now and on PEEP 12 and FiO2 45%. Continue antibiotics for pneumonia as below Wean vent as tolerated. Appreciate labor and delivery registered nurse input. (3) Sepsis: Code(s): A41.9 - Sepsis, unspecified organism Status: Acute Assessment and Plan: CT chest on presentation showed patchy airspace opacities throughout the lungs: PNA or pulmonary edema BCx 11/23 and 11/29: negative Sputum Cx 11/23: negative Urine Cx 11/23 and 11/29 negative Sputum Cx 11/29: positive for yeast. Imaging as above Completed azithromycin Nasal MRSA was negative hence vancomycin was discontinued but then resumed Continues to be febrile at times and with leukocytosis to 40K Cefepime and vanco resumed on 12/02; Cefepime changed to meropenem on 12/03 WBC back down again at 22K. Fever resolved CXR showing diffuse opacities in the lower lobes and HEATHER. Continue abx to complete a course. (4) Shock: Code(s): R57.9 - Shock, unspecified Status: Acute Assessment and Plan: Multifactorial shock secondary to sepsis and cardiogenic shock Off levophed and vasopressin Off hydrocortisone BP remaining stable (5) DKA (diabetic ketoacidosis): Qualifiers: Diabetes mellitus type: type 1 Diabetes mellitus complication detail: without coma Qualified Code(s): E10.10 - Type 1 diabetes mellitus with ketoacidosis without coma Code(s): E11.10 - Type 2 diabetes mellitus with ketoacidosis without coma Status: Acute Assessment and Plan: Patient on presentation was in DKA and was started on IV insulin infusion.? Her anion gap has closed 11/27:Off insulin infusion and was transition to subcutaneous insulin.? Glucose dropped so Lantus decreased then stopped and ultimately D5 added. The patient's blood glucose was reviewed on 12/09 Glucose back up to 200's. Dextrose stopped Continue AccuCheks covering with sliding scale.? Hypoglycemia protocol available as needed.? Continue to monitor (6) Acute kidney injury superimposed on CKD: Code(s): N17.9 - Acute kidney failure, unspecified; N18.9 - Chronic kidney disease, unspecified Status: Acute Assessment and Plan: Patient has history of chronic kidney disease likely secondary to DM and HTN. Cr 1.3-1.7 prior to admission Patient presented with JOHN PAUL with Cr up to 5.6; multifactorial? to sepsis, hypoxia, cardiac arrest, IV contrast exposure Received IV fluids but became volume overloaded so fluids held Potassium has normalized? CT scan of the abd/pelvis 11/23 did not show any hydronephrosis or stone Renal US 11/25:?No evidence of hydronephrosis of either kidney.? Left renal scarring and volume loss CK level was normal Nephrology is following and appreciate their input. HD catheter placed 11/26 and dialysis started Dialysis per Nephrology Plan to place tunnelled catheter. Continue to monitor urine output, electrolytes and creatinine (7) Cardiac arrest: Code(s): I46.9 - Cardiac arrest, cause unspecified Status: Acute Assessment and Plan:
[2023-12-10] MEDS: ACETAMINOPHEN ELIXIR 325 MG/10.15 ML UDC 650 MG PO (19:45)
[2023-12-10] MEDS: MINERAL OIL/WHITE PETROLATUM OINTMENT 1 APPLIC EACH EYE (20:22)
[2023-12-10 20:28] LABS: Glucose Point of Care 172 mg/dl (65-105)
[2023-12-10 20:37] LABS: Triglycerides 99 mg/dL (<150)
[2023-12-10 23:58] LABS: Glucose Point of Care 213 mg/dl (65-105)
[2023-12-11] VITALS (33 sets, daily range): BP systolic 105–154; BP diastolic 31–78; PULSE 78–106; RESP 17–34; TEMP 35.8–37.7; O2SAT 92–99
[2023-12-11] MEDS: METOCLOPRAMIDE HCL INJ 10 MG/2 ML VIAL IV PUSH ×5 (00:24→23:33)
[2023-12-11] MEDS: ALBUTEROL SULFATE NEB 2.5 MG/3 ML INH 5 MG INHALATION ×4 (01:32→19:56)
[2023-12-11] MEDS: IPRATROPIUM BR 0.02% INH SOLN 0.5 MG/2.5 ML VIAL INHALATION ×4 (01:33→19:57)
[2023-12-11] MEDS: CENTRAL LINE FLUSH 10 ML IV PUSH ×3 (05:11→21:01)
--- NOTE | 2023-12-11 05:11 | ECG_ITS ---
Measurements Intervals [place] Rate: 86 P: 32 ID: 122 QRS: 54 QRSD: 96 T: 83 QT: 367 QTc: 439 Interpretive Statements SINUS RHYTHM MINIMAL ST DEPRESSION [0.025+ mV ST DEPRESSION] WARNING: DATA QUALITY MAY AFFECT INTERPRETATION COMPARED TO ECG 12/10/2023 13:52:35 NO SIGNIFICANT CHANGES Electronically Signed On 12-11-2023 13:50:48 [employer] by Miranda Cota M.D.
[2023-12-11 05:13] LABS: Glucose Point of Care 198 mg/dl (65-105)
[2023-12-11 05:44] LABS: Hematocrit 25.5 % (37.0-47.0); Hemoglobin 7.2 g/dL (12.0-15.0); Mean Corpuscular HGB Conc 28.2 g/dl (32-36); Mean Corpuscular Volume 92.1 fl (80-100); Mean Platelet Volume 10.2 fl (7.4-10.4); Platelet Count Result 464 k/mm3 (150-375); Red Blood Count 2.77 M/mm3 (4.2-5.4); Red Cell Distribution Width 15.1 % (11.5-14.5)
[2023-12-11 05:51] LABS: Alanine Aminotransferase 32 U/L (6-35); Albumin Level 2.9 g/dL (3.5-5.1); Alkaline Phosphatase 204 U/L (38-126); Anion Gap 9 mmol/L (8-16); Aspartate Amino Transferase 35 U/L (14-36); Bilirubin,Total 0.9 mg/dL (0.2-1.3); Blood Urea Nitrogen 30 mg/dL (7-17); Calcium 8.8 mg/dL (8.4-10.2); Carbon Dioxide 24 mmol/L (22-30); Chloride 104 mmol/L (98-107); Estimated CRCL calculation 61 ml/min; Estimated Glomerular Filt Rate 49; Glucose 203 mg/dL (65-110); Magnesium 1.9 mg/dL (1.6-2.3); Potassium 4.1 mmol/L (3.4-5.0); Sodium 137 mmol/L (137-145)
[2023-12-11 06:14] LABS: Vancomycin Trough 18.6 ug/mL (10.0-20.0)
[2023-12-11 07:38] LABS: Glucose Point of Care 262 mg/dl (65-105)
[2023-12-11] MEDS: ASPIRIN 81 MG CHEWABLE TABLET PO (08:13)
[2023-12-11] MEDS: CLOPIDOGREL BISULFATE 75 MG TABLET PO (08:14)
[2023-12-11] MEDS: amLODIPine BESYLATE 5 MG TABLET 10 MG PO (08:14)
[2023-12-11] MEDS: carvediloL 25 MG TABLET PO ×2 (08:14→21:00)
[2023-12-11] MEDS: PANTOPRAZOLE SODIUM IV 40 MG VIAL IV PUSH ×2 (08:14→21:00)
[2023-12-11] MEDS: ROSUVASTATIN 10 MG TABLET 20 MG PO (08:14)
[2023-12-11] MEDS: MINERAL OIL/WHITE PETROLATUM OINTMENT 1 APPLIC EACH EYE (08:15)
[2023-12-11] MEDS: polyethylene glycoL 3350 17 GM POWD.PACK PO (08:21)
[2023-12-11] MEDS: INSULIN ASPART (*BKC) 100 UNITS/ML SUB-Q ×5 (08:28→23:33)
--- NOTE | 2023-12-11 10:07 | PM.PNNEP ---
Progress Note: A&P Assessment and Plan (1) JOHN PAUL (acute kidney injury): Code(s): N17.9 - Acute kidney failure, unspecified Status: Acute Assessment and Plan: ATN due to multifactorial etiology: cardiac arrest hemodynamic instability sepsis/infection hypoxia contrast exposure (CTA of chest on admission) pre-renal factors diuretic therapy prior to admission evaluation to date: CT scan of abdomen without obstruction renal ultrasound left renal scarring and volume loss CPK normal urine electrolytes prerenal urine eosinophils negative moderate proteinuria HD yesterday (more so for clearance of contrast from cardiac catheterization) increase in UOP in the last 24 - 48 hours -- possible renal recovery? continue to follow trend of labs and UOP (2) Stage 3b chronic kidney disease: Code(s): N18.32 - Chronic kidney disease, stage 3b Status: Chronic Assessment and Plan: evidence of renal insufficiency/chronic kidney disease 2021 creatinine seems to run around 1.3 - 1.7mg/dl presumably due to hypertension, diabetes, and vascular disease (3) Sepsis: Code(s): A41.9 - Sepsis, unspecified organism Status: Acute Assessment and Plan: suspect secondary to pneumonia based on imaging testing to date white blood cell count still elevated on Meropenem and vancomycin off vasopressor therapy (4) Acute hypoxic respiratory failure: Code(s): J96.01 - Acute respiratory failure with hypoxia Status: Acute Assessment and Plan: felt to be secondary to combination of pneumonia and pulmonary edema in conjunction with cardiac arrest fluid removal with dialysis as tolerated however she does not tolerate this very well lately. Will remove a little bit less fluid on Sunday. antibiotics for pneumonia s/p tracheostomy and G-tube placement (on 12/07/23) continue ventilator support with weaning as tolerated (5) Cardiac arrest: Code(s): I46.9 - Cardiac arrest, cause unspecified Status: Acute Assessment and Plan: etiology not entirely clear: pneumonia? CHF? hyperkalemia? primary cardiac event? trend of troponins (elevation could just be from cardiac arrest + CPR) Echo shows limited views but seems grossly normal Cardiology following - plan cardiac catheterization on Sunday (6) CAD (coronary artery disease): Code(s): I25.10 - Atherosclerotic heart disease of [place] coronary artery without angina pectoris Status: Acute Assessment and Plan: s/p cardiac cath (on 12/10/23) with findings noted: severe 2 vessel CAD with high-grade lesions in the mid LAD and proximal RCA successful revascularization of both lesions using drug eluting stents EF ~ 45% continue onging medical management (7) Diabetes: Code(s): E11.9 - Type 2 diabetes mellitus without complications Status: Chronic Assessment and Plan: follow accu-cheks glycemic control per anodiser/hospitalists Will continue to follow. Subjective Date/time seen: 12/11/23 10:07 Interval history: Follow-up for acute kidney injury/acute renal failure on chronic kidney disease. Tolerated dialysis treatment yesterday afternoon following cardiac catheterization; remains on mechanical ventilation via tracheostomy but awake & alert along with following commands as well nodding head to questions; improved urine output in the last 24 - 48 hours as well. Exam Narrative: General: large WD/WN female on mechanical ventilation via tracheostomy Heart: normal S1 and S2; no rub Lungs: coarse upper airway breath sounds; decreased at bases Abdomen: soft, nontender, nondistended, positive bowel sounds Extremities: trace edema noted Skin: warm and dry Objective Data Vital Signs Vital Signs: Vital Signs Temp Pulse Resp BP Pulse Ox O2 Del Method FiO2 12/11/23 10:00 88 12/11/23 10:00 97.
--- NOTE | 2023-12-11 10:07 | P.PNNP_ITS ---
Progress Note: A&P Assessment and Plan (1) JOHN PAUL (acute kidney injury): Code(s): N17.9 - Acute kidney failure, unspecified Status: Acute Assessment and Plan: * ATN due to multifactorial etiology: * cardiac arrest * hemodynamic instability * sepsis/infection * hypoxia * contrast exposure (CTA of chest on admission) * pre-renal factors * diuretic therapy prior to admission * evaluation to date: * CT scan of abdomen without obstruction * renal ultrasound left renal scarring and volume loss * CPK normal * urine electrolytes prerenal * urine eosinophils negative * moderate proteinuria * HD yesterday (more so for clearance of contrast from cardiac catheterization) * increase in UOP in the last 24 - 48 hours -- possible renal recovery? * continue to follow trend of labs and UOP (2) Stage 3b chronic kidney disease: Code(s): N18.32 - Chronic kidney disease, stage 3b Status: Chronic Assessment and Plan: * evidence of renal insufficiency/chronic kidney disease 2021 * creatinine seems to run around 1.3 - 1.7mg/dl * presumably due to hypertension, diabetes, and vascular disease (3) Sepsis: Code(s): A41.9 - Sepsis, unspecified organism Status: Acute Assessment and Plan: * suspect secondary to pneumonia based on imaging testing to date * white blood cell count still elevated * on Meropenem and vancomycin * off vasopressor therapy (4) Acute hypoxic respiratory failure: Code(s): J96.01 - Acute respiratory failure with hypoxia Status: Acute Assessment and Plan: * felt to be secondary to combination of pneumonia and pulmonary edema in conjunction with cardiac arrest * fluid removal with dialysis as tolerated however she does not tolerate this very well lately. Will remove a little bit less fluid on Sunday. * antibiotics for pneumonia * s/p tracheostomy and G-tube placement (on 12/07/23) * continue ventilator support with weaning as tolerated (5) Cardiac arrest: Code(s): I46.9 - Cardiac arrest, cause unspecified Status: Acute Assessment and Plan: * etiology not entirely clear: * pneumonia? * CHF? * hyperkalemia? * primary cardiac event? * trend of troponins (elevation could just be from cardiac arrest + CPR) * Echo shows limited views but seems grossly normal * Cardiology following - plan cardiac catheterization on Sunday (6) CAD (coronary artery disease): Code(s): I25.10 - Atherosclerotic heart disease of [place] coronary artery without angina pectoris Status: Acute Assessment and Plan: * s/p cardiac cath (on 12/10/23) with findings noted: * severe 2 vessel CAD with high-grade lesions in the mid LAD and proximal RCA * successful revascularization of both lesions using drug eluting stents * EF ~ 45% * continue onging medical management (7) Diabetes: Code(s): E11.9 - Type 2 diabetes mellitus without complications Status: Chronic Assessment and Plan: * follow accu-cheks * glycemic control per hydrogen operator/hospitalists Will continue to follow. Subjective Date/time seen: 12/11/23 10:07 Interval history: Follow-up for acute kidney injury/acute renal failure on chronic kidney disease. Tolerated dialysis treatment yesterday afternoon following cardiac catheteriz ation; remains on mechanical ventilation via tracheostomy but awake & alert along with following commands as well nodding head to questions; improved urine output in
--- NOTE | 2023-12-11 10:30 | PM.PNCARD ---
Progress Note: A&P Assessment and Plan (1) CAD (coronary artery disease): Code(s): I25.10 - Atherosclerotic heart disease of [place] coronary artery without angina pectoris Status: Acute Assessment and Plan: Underwent coronary angiogram yesterday and was found to have severe 2 vessel coronary artery disease with high-grade lesions in the mid LAD and proximal right coronary artery. She is now s/p PCI of these lesions. Continue DAPT with ASA, Plavix Continue statin Continue aggressive risk factor modification for CAD Smoking cessation (2) Respiratory failure: Code(s): J96.90 - Respiratory failure, unspecified, unspecified whether with hypoxia or hypercapnia Status: Acute Assessment and Plan: On mechanical ventilation with tracheostomy in place now Subjective Date/time seen: 12/11/23 10:30 Interval history: Date of service: 12/29 Interval history: Patient lying in the bed, no acute distress. Unable to talk, status post trach. In sinus rhythm on telemetry. Date of service 12/11/2023: Lying comfortably in bed with at the bedside. No specific complaints. Telemetry shows sinus rhythm. Reviewed findings of [facility] yesterday and intervention. Review of Systems Review of Systems: All systems reviewed & are unremarkable except as noted in HPI and below Exam Const: Other: Obese white female appears her stated age on mechanical ventilator support with tracheostomy in place HENMT: Mouth: Yes moist mucous membranes Eyes: Sclera: sclerae normal Neck: Neck: supple Other: Carotid pulses are intact bilaterally Tracheostomy in place Resp: Auscultation: clear to auscultation bilaterally Cardio: Rate: regular rate Rhythm: regular rhythm Other: PMI not palpable. No murmur no gallop GI: Auscultation: normal bowel sounds Skin: General skin exam: normal color Extrem: Other: Adequate perfusion, generalized edema noted R groin arterial access site free from bleeding, hematoma, pain. Objective Data Vital Signs Vital Signs: Vital Signs - 24 hr 12/10/23 11:21 12/10/23 13:47 12/10/23 13:47 Temperature Pulse Rate 88 85 83 Respiratory Rate 28 H Blood Pressure Pulse Oximetry 98 94 Oxygen Delivery Mechanical Ventilation Mechanical Ventilation Fraction of Inspired Oxygen 55 55 12/10/23 14:01 12/10/23 12:11 12/10/23 13:45 Temperature 36.5 C Pulse Rate 85 87 84 Respiratory Rate 29 H 22 H Blood Pressure 111/60 Pulse Oximetry 97 92 Oxygen Delivery Mechanical Ventilation Fraction of Inspired Oxygen 55 12/10/23 14:00 12/10/23 14:00 12/10/23 14:00 Temperature 36.4 C Pulse Rate 84 Respiratory Rate 22 H Blood Pressure 114/59 L Pulse Oximetry 94 94 Oxygen Delivery Mechanical Ventilation Fraction of Inspired Oxygen 55 55 12/10/23 14:00 12/10/23 14:00 12/10/23 14:30 Temperature 36.4 C 36.3 C L Pulse Rate 84 87 86 Respiratory Rate 22 H 28 H Blood Pressure 114/59 L 114/60 Pulse Oximetry 94 94 Oxygen Delivery Fraction of Inspired Oxygen 12/10/23 14:15 12/10/23 14:29 12/10/23 14:29 Temperature 36.4 C L Pulse Rate 84 85 Respiratory Rate 28 H Blood Pressure 112/57 L 114/60 Pulse Oximetry 93 Oxygen Delivery Fraction of Inspired Oxygen 55 12/10/23 15:30 12/10/23 16:00 12/10/23 16:15 Temperature Pulse Rate 86 82 85 Respiratory Rate Blood Pressure 113/58 L 105/55 L 116/48 L Pulse Oximetry Oxygen Delivery Fraction of Inspired Oxygen 12/10/23 16:30 12/10/23 16:45 12/10/23 17:00 Temperature Pulse Rate 86 85 86 Respiratory Rate Blood Pressure 130/63 125/59 L 121/58 L Pulse Oximetry Oxygen Delivery Fraction of Inspired Oxygen 12/10/23 17:30 12/10/23 17:45 12/10/23 14:45 Temperature Pulse Rate 88 87 86 Respiratory Rate Blood Pressure 135/59 L 134/61 115/62 Pulse Oximetry Oxygen Delivery Fraction of Inspired O
--- NOTE | 2023-12-11 11:28 | PCNFU ---
Nutrition Follow-Up Complete: Inadequate Oral Intake as related to mechanical ventilation as evidenced by NPO. Goal: Meet estimated nutritional needs. Patient is progressing towards goal.We will continue current goal. Pt current nutrition is Nepro at 20 ml/hr. Nutrition recommendation: goal rate at 40 ml/hr Last recorded weight is 101.2 kg,down from 118.1 kg. Bowel Motility:+BM reported 2/6 Labs Reviewed: Glu 203, BUN 30, GFR 49, Cr 1.2, Alb 2.9 Meds Noted: Plavix, Reglan, Coreg, Lantus, NovoLog Skin: WNL Additional Notes: Patient is current with PEG/Trach. Tube feedings have been restarted currently at 20 ml/hr with plans for goal rate of 40 ml/hr Nepro. Protein Modular of Prosource BID. Total Nutrition: 1744 kcals/111 gms protein/640 ml water. Flush 30 ml q 4hours. Agree with diet orders. Plans for LTAC at discharge. Will monitor weight, labs, skin, meds, tube feeding tolerance every Sunday and Sunday.
[2023-12-11 11:48] LABS: Glucose Point of Care 257 mg/dl (65-105)
--- NOTE | 2023-12-11 12:35 | WPDINTPN ---
Progress Note: A&P Assessment and Plan (1) Acute hypoxic respiratory failure: Code(s): J96.01 - Acute respiratory failure with hypoxia Status: Acute Assessment and Plan: Acute hypoxic respiratory failure likely secondary to combination of pneumonia and pulmonary edema, ? ARDS 12/07/2023: status post tracheostomy. Procedure was complicated. Please refer to ENT op note. A size 6 trachea was able to be placed with a flap she has size 6 proximal XLT tracheostomy -chest x-ray this morning: Worsened airspace opacities in the perihilar regions and at left lung base, consistent with atelectasis versus pneumonia versus mild pulmonary edema. -currently on 50 % FiO2 and peep of 12. Continue to wean FiO2 to maintain FiO2 > 92% -continue dialysis to remove fluid -Continue bronchodilators -off all sedation -continue antibiotics as below 12/02 CT scan of the chest abdomen and pelvis, since patient has had fevers and elevated WBC count IMPRESSION: 1. Multifocal consolidation in the lungs, consistent with pneumonia. 2: Mediastinal lymphadenopathy, likely reactive. 12/02: CT scan of the brain in sinus without contrast IMPRESSION: 1. No acute intracranial abnormality. No evidence for significant sinus disease. 12/04 chest CTA Limited evaluation of subsegmental arteries. No CT evidence of acute central or segmental pulmonary embolus. Unchanged findings consistent with multifocal pneumonia. Minimal lower tracheal secretions. Mediastinal and bilateral hilar lymphadenopathy. (2) Sepsis: Code(s): A41.9 - Sepsis, unspecified organism Status: Acute Assessment and Plan: CT scan done on presentation showed patchy airspace opacities throughout the lungs consistent with pneumonia or pulmonary edema 11/23: Blood, sputum and urine cultures are negative -status post cefepime and azithromycin Nasal MRSA was negative hence vancomycin discontinued in light of worsening renal function -11/29: Patient has been febrile of life with a T-max of 101.1, WBC count is still at 27.4 -11/29: Preliminary blood cultures are negative x2 -11/29: Urine cultures negative -11/29: Sputum cultures growing yeast 12/01; T-max 101.2?, negative venous Dopplers, may have to do a CT scan of chest abdomen and pelvis 12/02: T-max 100.8?, WBC count rising to 29.9, CT scan of the chest showed bilateral multifocal consolidation especially bilateral lower lobes, continue meropenem and vancomycin (12/02) 2/4 WBC increased. Patient now experiencing abdominal pain Continue antibiotics CT abdomen pelvis as below. Normal lipase. CVC removed 12/10 afebrile overnight and WBC improved 12/11: Remains afebrile and WBC count improved (3) Abdominal pain: Code(s): R10.9 - Unspecified abdominal pain Status: Acute Assessment and Plan: PEG tube placed / tube feeds were resumed and advanced to 40 mL yesterday Overnight patient started complaining of abdominal pain. Tube feeds were held and GI was notified. KUB was done On my review KUB showed gas-filled stomach. Tube feeds held. I hooked up PEG tube to suction and 400 mL of tube feeds were suctioned out. Continue PEG tube to L IS CT scan Interval PEG tube insertion without evidence of extravasation of injected contrast material. Lipase normal Symptoms improved now and patient denies any pain. Tube feeds were started yesterday at a low rate currently on hold for cardiac catheterization 12/11: Increase tube feeds to wall (4) Acute kidney injury superimposed on CKD: Code(s): N17.9 - Acute kidney failure, unspecified; N18.9 - Chronic kidney disease, unspecified Status: Acute Assessment and Plan: Patient has history of chronic kidney disease likely secondary to diabetes and hypertension and now presented with much elevated creatinine which is likely multifactorial and secondary to sepsis, hypoxia and cardiac arrest. She also received IV contrast for her CTA although that is prob
[2023-12-11] MEDS: MEROPENEM 500 MG in SODIUM CHLORIDE 0.9% IV 100 ML 200 ML IVPB (14:12)
[2023-12-11 16:46] LABS: Glucose Point of Care 205 mg/dl (65-105)
--- NOTE | 2023-12-11 18:14 | PM.IMPN ---
Progress Note: A&P Assessment and Plan (1) Abdominal pain: Code(s): R10.9 - Unspecified abdominal pain Status: Acute Assessment and Plan: Patient developed abd pain 2 days after PEG placed. KUB shows distended stomach. CT Ch/A/P showing no acute findings and that contrast was within the stomach. Could be related to gastric distention better with GTube to suction but still having abd pain. May be related to constipation She remains on Reglan. Dulcolax supp Monitor. (2) Acute hypoxic respiratory failure: Code(s): J96.01 - Acute respiratory failure with hypoxia Status: Acute Assessment and Plan: Acute hypoxic respiratory failure likely secondary to combination of pneumonia and pulmonary edema Chest x-ray reviewed showing congestive changes. Patient was intubated on 11/23. CTA 12/04 negative for PE but does show multifocal PNA. Tracheostomy and Peg placed 12/07/23 CT Chest 12/09 showing dependent airspace opacities worse LLL Better now and remains on PEEP 12 and FiO2 45%. Continue antibiotics for pneumonia as below Wean vent as tolerated. Appreciate money laundering investigator input. (3) Sepsis: Code(s): A41.9 - Sepsis, unspecified organism Status: Acute Assessment and Plan: CT chest on presentation showed patchy airspace opacities throughout the lungs: PNA or pulmonary edema BCx 11/23 and 11/29: negative Sputum Cx 11/23: negative Urine Cx 11/23 and 11/29 negative Sputum Cx 11/29: positive for yeast. Imaging as above Completed azithromycin Nasal MRSA was negative hence vancomycin was discontinued but then resumed Continues to be febrile at times and with leukocytosis to 40K Cefepime and vanco resumed on 12/02; Cefepime changed to meropenem on 12/03 WBC down to 15K. Fever resolved CT scan showing dependent airspace dz LLL>RLL. Continue abx to complete a course. (4) Shock: Code(s): R57.9 - Shock, unspecified Status: Acute Assessment and Plan: Multifactorial shock secondary to sepsis and cardiogenic shock Off levophed and vasopressin Off hydrocortisone BP remaining stable (5) DKA (diabetic ketoacidosis): Qualifiers: Diabetes mellitus type: type 1 Diabetes mellitus complication detail: without coma Qualified Code(s): E10.10 - Type 1 diabetes mellitus with ketoacidosis without coma Code(s): E11.10 - Type 2 diabetes mellitus with ketoacidosis without coma Status: Acute Assessment and Plan: A1c 8.7. Patient on presentation was in DKA and was started on IV insulin infusion.? Her anion gap has closed 11/27:Off insulin infusion and was transition to subcutaneous insulin.? Glucose dropped so Lantus decreased then stopped and ultimately D5 added. The patient's blood glucose was reviewed on 12/11 Glucose back up to 200's. Dextrose stopped Continue AccuCheks covering with sliding scale.? Hypoglycemia protocol available as needed.? Continue to monitor. Resume low dose Lantus? (6) Acute kidney injury superimposed on CKD: Code(s): N17.9 - Acute kidney failure, unspecified; N18.9 - Chronic kidney disease, unspecified Status: Acute Assessment and Plan: Patient has history of chronic kidney disease likely secondary to DM and HTN. Cr 1.3-1.7 prior to admission Patient presented with JOHN PAUL with Cr up to 5.6; multifactorial? to sepsis, hypoxia, cardiac arrest, IV contrast exposure Received IV fluids but became volume overloaded so fluids held Potassium has normalized? CT scan of the abd/pelvis 11/23 did not show any hydronephrosis or stone Renal US 11/25:?No evidence of hydronephrosis of either kidney.? Left renal scarring and volume loss CK level was normal Nephrology is following and appreciate their input. HD catheter placed 11/26 and dialysis started Dialysis per Nephrology UOP better. May being having some signs of improvement. Plan to place tunnelled catheter if renal function does not improve. Continue to monitor urine output, elect
[2023-12-11 21:12] LABS: Glucose Point of Care 324 mg/dl (65-105)
[2023-12-11] MEDS: ALPRAZolam (*CRX) 0.5 MG TABLET FEED TUBE (21:25)
[2023-12-11] MEDS: MORPHINE SULFATE (*CRX) 2 MG/ML INJ IV PUSH (23:34)
[2023-12-11 23:43] LABS: Glucose Point of Care 321 mg/dl (65-105)
[2023-12-12] VITALS (32 sets, daily range): BP systolic 124–147; BP diastolic 56–74; PULSE 82–98; RESP 18–32; TEMP 36.6–37.9; O2SAT 94–98
[2023-12-12] MEDS: IPRATROPIUM BR 0.02% INH SOLN 0.5 MG/2.5 ML VIAL INHALATION ×4 (01:44→20:37)
[2023-12-12] MEDS: ALBUTEROL SULFATE NEB 2.5 MG/3 ML INH 5 MG INHALATION ×4 (01:44→20:37)
[2023-12-12] MEDS: INSULIN ASPART (*BKC) 100 UNITS/ML SUB-Q ×6 (04:07→22:58)
[2023-12-12 04:14] LABS: Glucose Point of Care 244 mg/dl (65-105)
[2023-12-12 05:34] LABS: Alveolar/Arterial O2 Gradient 315.9 mmHg; Base Excess ABG 0.6 mEq/l (+/-2.0); Carboxyhemoglobin 0.4 % THb (0-2.0); Fractional Inspired Oxygen 60 %; HCO3 ABG 23.9 mEq/l (22.0-26.0); Methemoglobin ABG 0.3 %THb (0-1.5); Oxygen Content ABG 12.6 %vol (16.0-22.0); Oxyhemoglobin 93.5 % THb (90.0-100.0); PCO2 ABG 33.3 mmHg (35.0-45.0); PO2 ABG 75.3 mmHg (80.0-100.0); PO2 FiO2 Ratio Arterial Blood 1.25 %; Reduced Hemoglobin 5.8 %THb (0-5.0); Total Hemoglobin 9.5 g/dL (12.0-18.0); pH ABG 7.474 (7.350-7.450)
[2023-12-12 05:36] LABS: Device VENTILATOR; Modified Allen's Test Pass; Site Drawn RIGHT RADIAL
[2023-12-12 05:37] LABS: Arterial Blood Gas PEEP 12 cmH2O; Arterial Blood Gas Tidal Volume 350 ml; Arterial Blood Gas Vent Mode CMV; Arterial Blood Gas Ventilator rate 16 /MIN
[2023-12-12] MEDS: CENTRAL LINE FLUSH 10 ML IV PUSH ×3 (05:51→21:08)
[2023-12-12] MEDS: METOCLOPRAMIDE HCL INJ 10 MG/2 ML VIAL IV PUSH ×4 (05:51→22:57)
[2023-12-12 06:04] LABS: Hematocrit 25.7 % (37.0-47.0); Hemoglobin 7.4 g/dL (12.0-15.0); Mean Corpuscular HGB Conc 28.8 g/dl (32-36); Mean Corpuscular Hemoglobin 26.2 pg (26-34); Mean Corpuscular Volume 91.1 fl (80-100); Platelet Count Result 531 k/mm3 (150-375); Red Blood Count 2.82 M/mm3 (4.2-5.4); Red Cell Distribution Width 15.4 % (11.5-14.5); White Blood Count 21.3 K/mm3 (4.5-10.0)
[2023-12-12 06:37] LABS: Alanine Aminotransferase 35 U/L (6-35); Alkaline Phosphatase 204 U/L (38-126); Anion Gap 8 mmol/L (8-16); Aspartate Amino Transferase 31 U/L (14-36); Bilirubin,Total 0.7 mg/dL (0.2-1.3); Blood Urea Nitrogen 55 mg/dL (7-17); Calcium 9.2 mg/dL (8.4-10.2); Carbon Dioxide 26 mmol/L (22-30); Chloride 103 mmol/L (98-107); Estimated CRCL calculation 34 ml/min; Estimated Glomerular Filt Rate 24; Glucose 236 mg/dL (65-110); Potassium 3.8 mmol/L (3.4-5.0); Sodium 137 mmol/L (137-145)
[2023-12-12 07:30] LABS: Glucose Point of Care 251 mg/dl (65-105)
[2023-12-12] MEDS: CLOPIDOGREL BISULFATE 75 MG TABLET PO (09:04)
[2023-12-12] MEDS: ASPIRIN 81 MG CHEWABLE TABLET PO (09:05)
[2023-12-12] MEDS: PANTOPRAZOLE SODIUM IV 40 MG VIAL IV PUSH ×2 (09:05→21:08)
[2023-12-12] MEDS: polyethylene glycoL 3350 17 GM POWD.PACK PO (09:05)
[2023-12-12] MEDS: INSULIN GLARGINE (*BKC) 100 UNITS/ML 15 UNITS SUB-Q (09:05)
[2023-12-12] MEDS: amLODIPine BESYLATE 5 MG TABLET 10 MG PO (09:05)
[2023-12-12] MEDS: carvediloL 25 MG TABLET PO ×2 (09:05→21:08)
[2023-12-12] MEDS: ROSUVASTATIN 10 MG TABLET 20 MG PO (09:05)
[2023-12-12] MEDS: MINERAL OIL/WHITE PETROLATUM OINTMENT 1 APPLIC EACH EYE (09:06)
[2023-12-12] MEDS: BISACODYL 10 MG SUPPOSITORY RECTAL (09:26)
[2023-12-12] MEDS: BUMETANIDE INJ 2.5 MG/10 ML VIAL 1.5 MG IV PUSH (09:50)
--- NOTE | 2023-12-12 11:39 | PCFNICU ---
ICU Rounding Note: Pt current nutrition is Nepro at 40 ml/hr with Prosource BID. Last recorded weight is 100.4 kg, down from 118.1 kg on admit. Bowel Motility:+BM reported 12/12 Labs Reviewed:Glu 236, GFR 24, BUN 55, Cr 2.2, Alb 3.0,Hct 25.7,Hgb 7.4 Meds Noted:Bumex, NovoLog, Lantus, Protonix, Coreg,Miralax Skin: WNL Additional Notes: Patient remains current with Trach/PEG. No sedation. Tolerating tube feedings of Nepro at 40 ml/hr. Protein Modular of Prosource BID providing an additional 160 kcals and 40 gms protein protein. Flush 30 ml q 4 hours. EGD possible 12/13. LTAC planned for discharge. Following daily in ICU rounds. Will monitor weight, labs, skin, meds, tube feeding tolerance every Sunday and Sunday.
[2023-12-12 11:46] LABS: Glucose Point of Care 390 mg/dl (65-105)
[2023-12-12] MEDS: INSULIN HUMAN REGULAR (*BKC) 100 UNITS/ML 10 UNITS IV PUSH (12:25)
[2023-12-12] MEDS: ACETAMINOPHEN ELIXIR 325 MG/10.15 ML UDC 650 MG PO ×2 (12:37→22:55)
--- NOTE | 2023-12-12 13:20 | P.PNNP_ITS ---
Progress Note: A&P Assessment and Plan (1) JOHN PAUL (acute kidney injury): Code(s): N17.9 - Acute kidney failure, unspecified Status: Acute Assessment and Plan: * ATN due to multifactorial etiology: * cardiac arrest * hemodynamic instability * sepsis/infection * hypoxia * contrast exposure (CTA of chest on admission) * pre-renal factors * diuretic therapy prior to admission * evaluation to date: * CT scan of abdomen without obstruction * renal ultrasound left renal scarring and volume loss * CPK normal * urine electrolytes prerenal * urine eosinophils negative * moderate proteinuria * last HD treatment on 12/10/23 * diminished urine output noted in the last 24 hours * trial of IV diuretics today (bumex 1.5mg IV x 1) * continue to follow trend of labs and UOP (2) Stage 3b chronic kidney disease: Code(s): N18.32 - Chronic kidney disease, stage 3b Status: Chronic Assessment and Plan: * evidence of renal insufficiency/chronic kidney disease 2021 * creatinine seems to run around 1.3 - 1.7mg/dl * presumably due to hypertension, diabetes, and vascular disease (3) Sepsis: Code(s): A41.9 - Sepsis, unspecified organism Status: Acute Assessment and Plan: * suspect secondary to pneumonia based on imaging testing to date * white blood cell count still elevated * on Meropenem and vancomycin * off vasopressor therapy (4) Acute hypoxic respiratory failure: Code(s): J96.01 - Acute respiratory failure with hypoxia Status: Acute Assessment and Plan: * felt to be secondary to combination of pneumonia and pulmonary edema in conjunction with cardiac arrest * fluid removal with dialysis as tolerated * antibiotics for pneumonia * s/p tracheostomy and G-tube placement (on 12/07/23) * continue ventilator support with weaning as tolerated (5) Cardiac arrest: Code(s): I46.9 - Cardiac arrest, cause unspecified Status: Acute Assessment and Plan: * etiology not entirely clear: * pneumonia? * CHF? * hyperkalemia? * primary cardiac event? * trend of troponins (elevation could just be from cardiac arrest + CPR) * Echo shows limited views but seems grossly normal * s/p cardiac catheterization with results noted (6) CAD (coronary artery disease): Code(s): I25.10 - Atherosclerotic heart disease of [place] coronary artery without angina pectoris Status: Acute Assessment and Plan: * s/p cardiac cath (on 12/10/23) with findings noted: * severe 2 vessel CAD with high-grade lesions in the mid LAD and proximal RCA * successful revascularization of both lesions using drug eluting stents * EF ~ 45% * continue onging medical management (7) Diabetes: Code(s): E11.9 - Type 2 diabetes mellitus without complications Status: Chronic Assessment and Plan: * follow accu-cheks * glycemic control per stable attendant/hospitalists Discussed with Dr. Arellano. Will continue to follow. Subjective Date/time seen: 12/12/23 13:20 Interval history: Follow-up for acute kidney injury/acute renal failure on chronic kidney disease. Remains on mechanical ventilation via tracheostomy but with stable mentation - awake, alert, and able to nod to question associated with following commands; remains hemodynamically stable and off all sedation; less urine output noted in the last 24 hours with rise in BUN/creatinine; no apparent distress noted. Exam
--- NOTE | 2023-12-12 13:20 | PM.PNNEP ---
Progress Note: A&P Assessment and Plan (1) JOHN PAUL (acute kidney injury): Code(s): N17.9 - Acute kidney failure, unspecified Status: Acute Assessment and Plan: ATN due to multifactorial etiology: cardiac arrest hemodynamic instability sepsis/infection hypoxia contrast exposure (CTA of chest on admission) pre-renal factors diuretic therapy prior to admission evaluation to date: CT scan of abdomen without obstruction renal ultrasound left renal scarring and volume loss CPK normal urine electrolytes prerenal urine eosinophils negative moderate proteinuria last HD treatment on 12/10/23 diminished urine output noted in the last 24 hours trial of IV diuretics today (bumex 1.5mg IV x 1) continue to follow trend of labs and UOP (2) Stage 3b chronic kidney disease: Code(s): N18.32 - Chronic kidney disease, stage 3b Status: Chronic Assessment and Plan: evidence of renal insufficiency/chronic kidney disease 2021 creatinine seems to run around 1.3 - 1.7mg/dl presumably due to hypertension, diabetes, and vascular disease (3) Sepsis: Code(s): A41.9 - Sepsis, unspecified organism Status: Acute Assessment and Plan: suspect secondary to pneumonia based on imaging testing to date white blood cell count still elevated on Meropenem and vancomycin off vasopressor therapy (4) Acute hypoxic respiratory failure: Code(s): J96.01 - Acute respiratory failure with hypoxia Status: Acute Assessment and Plan: felt to be secondary to combination of pneumonia and pulmonary edema in conjunction with cardiac arrest fluid removal with dialysis as tolerated antibiotics for pneumonia s/p tracheostomy and G-tube placement (on 12/07/23) continue ventilator support with weaning as tolerated (5) Cardiac arrest: Code(s): I46.9 - Cardiac arrest, cause unspecified Status: Acute Assessment and Plan: etiology not entirely clear: pneumonia? CHF? hyperkalemia? primary cardiac event? trend of troponins (elevation could just be from cardiac arrest + CPR) Echo shows limited views but seems grossly normal s/p cardiac catheterization with results noted (6) CAD (coronary artery disease): Code(s): I25.10 - Atherosclerotic heart disease of [place] coronary artery without angina pectoris Status: Acute Assessment and Plan: s/p cardiac cath (on 12/10/23) with findings noted: severe 2 vessel CAD with high-grade lesions in the mid LAD and proximal RCA successful revascularization of both lesions using drug eluting stents EF ~ 45% continue onging medical management (7) Diabetes: Code(s): E11.9 - Type 2 diabetes mellitus without complications Status: Chronic Assessment and Plan: follow accu-cheks glycemic control per etcher enameling/hospitalists Discussed with Dr. Arellano. Will continue to follow. Subjective Date/time seen: 12/12/23 13:20 Interval history: Follow-up for acute kidney injury/acute renal failure on chronic kidney disease. Remains on mechanical ventilation via tracheostomy but with stable mentation - awake, alert, and able to nod to question associated with following commands; remains hemodynamically stable and off all sedation; less urine output noted in the last 24 hours with rise in BUN/creatinine; no apparent distress noted. Exam Narrative: General: large WD/WN female on mechanical ventilation via tracheostomy Heart: normal S1 and S2; no rub Lungs: coarse upper airway breath sounds; decreased at bases Abdomen: soft, nontender, nondistended, positive bowel sounds Extremities: trace edema noted Skin: warm and intact Objective Data Vital Signs Vital Signs: Vital Signs Temp Pulse Resp BP Pulse Ox O2 Del Method FiO2 12/12/23 13:16 100.1 F H 12/12/23 12:00 40 12/12/23 12:00 97 Mechanical Ventilation
--- NOTE | 2023-12-12 14:12 | WPDGIPROGNO ---
Progress Note: A&P Assessment and Plan (1) Anemia: Code(s): D64.9 - Anemia, unspecified Status: Acute Assessment and Plan: h/h slowly trending down, no overt gib barrel rifler broach asking if we can do EGD tomorrow to assess if signs of bleeding recent CT scan abd after PEG placement without any acute issues (2) Status post insertion of percutaneous endoscopic gastrostomy (PEG) tube: Code(s): Z93.1 - Gastrostomy status Status: Acute (3) Acute hypoxic respiratory failure: Code(s): J96.01 - Acute respiratory failure with hypoxia Status: Acute Assessment and Plan: prolonged intubation after cardiac arrest and other complications now she is post trach and peg- tolerating tube feeding (4) Multifocal pneumonia: Code(s): J18.9 - Pneumonia, unspecified organism Status: Acute Assessment and Plan: on treatment s/p trach (5) Cardiac arrest: Code(s): I46.9 - Cardiac arrest, cause unspecified Status: Acute Subjective Date/time seen: 12/12/23 14:12 Interval history: patient is awake, she looks better s/p trach, she is tolerating tube feeding by G-tube, no more pain at site barrel rifler broach called again because hgb slowly trending down, no overt gib but had occult blood in stool- requesting EGD tomorrow before she can be taken to LTAC Review of Systems Review of Systems: All systems reviewed & are unremarkable except as noted in HPI and below Exam Narrative: Gen - intubated via trach; awake and alert and can communicate her wishes HEENT - nc/at Neck - Trach midline. HD catheter in the right IJ. TLC in the left IJ Chest - lungs less coarse today CV - RRR S1/S2. Tele showing no significant dysrhythmias Abd - GTube site clean and dry. Abd soft, not tense. - Mijares secured draining clear yellow urine Ext - no pedal edema Neuro - patient awake and alert. follows commands. Psych - calm Skin - warm and dry. dried eschar LUE Objective Data Vital Signs Vital Signs: Vital Signs - 24 hr 12/11/23 15:30 12/11/23 16:00 12/11/23 16:00 Temperature 99.6 F Pulse Rate 91 93 92 Respiratory Rate 25 H Blood Pressure 115/31 L Pulse Oximetry 96 97 Oxygen Delivery Mechanical Ventilation Fraction of Inspired Oxygen 45 12/11/23 16:00 12/11/23 16:00 12/11/23 17:46 Temperature Pulse Rate 95 Respiratory Rate Blood Pressure Pulse Oximetry 93 96 Oxygen Delivery Mechanical Ventilation Mechanical Ventilation Fraction of Inspired Oxygen 45 45 45 12/11/23 18:00 12/11/23 18:00 12/11/23 19:57 Temperature 99.6 F Pulse Rate 94 93 100 Respiratory Rate 28 H Blood Pressure 133/69 Pulse Oximetry 95 92 Oxygen Delivery Mechanical Ventilation Fraction of Inspired Oxygen 45 12/11/23 19:57 12/11/23 20:00 12/11/23 20:00 Temperature 100 F H Pulse Rate 100 106 H Respiratory Rate 29 H 22 H Blood Pressure 115/54 L Pulse Oximetry 97 Oxygen Delivery Fraction of Inspired Oxygen 45 12/11/23 20:00 12/11/23 21:00 12/11/23 20:00 Temperature Pulse Rate 106 H 97 103 H Respiratory Rate 22 H Blood Pressure Pulse Oximetry 97 Oxygen Delivery Mechanical Ventilation Fraction of Inspired Oxygen 45 12/11/23 22:00 12/11/23 22:00 12/11/23 23:14 Temperature 99.3 F Pulse Rate 99 99 Respiratory Rate 34 H Blood Pressure 114/60 Pulse Oximetry 94 Oxygen Delivery Fraction of Inspired Oxygen 60 12/11/23 21:30 12/11/23 23:18 12/12/23 00:00 Temperature 99.9 F H Pulse Rate 99 93 96 Respiratory Rate 34 H 21 H Blood Pressure 128/64 Pulse Oximetry 94 95 95 Oxygen Delivery Mechanical Ventilation Mechanical Ventilation Fraction of Inspired Oxygen 60 60 12/12/23 00:00 12/12/23 00:00 12/12/23 00:00 Temperature Pulse Rate 95 95 Respiratory Rate 21 H Blood Pressure Pulse Oximetry 95 Oxygen Delivery Mechanical Ventilation Fraction of Inspired Oxygen 60 60
--- NOTE | 2023-12-12 14:29 | WPDINTPN ---
Progress Note: A&P Assessment and Plan (1) Acute hypoxic respiratory failure: Code(s): J96.01 - Acute respiratory failure with hypoxia Status: Acute Assessment and Plan: Acute hypoxic respiratory failure likely secondary to combination of pneumonia and pulmonary edema, ? ARDS 12/07/2023: status post tracheostomy. Procedure was complicated. Please refer to ENT op note. A size 6 trachea was able to be placed with a flap she has size 6 proximal XLT tracheostomy -chest x-ray this morning: Bibasilar and perihilar airspace disease. Correlate for mild to moderate pulmonary edema versus infection. -currently on 60 % FiO2 and peep of 12. Continue to wean FiO2 to maintain FiO2 > 92% -currently dialysis on hold, discussed with Nephrology, will give a dose of Bumex, today on 12/12 -Continue bronchodilators -off all sedation -off all antibiotics 12/02 CT scan of the chest abdomen and pelvis, since patient has had fevers and elevated WBC count IMPRESSION: 1. Multifocal consolidation in the lungs, consistent with pneumonia. 2: Mediastinal lymphadenopathy, likely reactive. 12/02: CT scan of the brain in sinus without contrast IMPRESSION: 1. No acute intracranial abnormality. No evidence for significant sinus disease. 12/04 chest CTA Limited evaluation of subsegmental arteries. No CT evidence of acute central or segmental pulmonary embolus. Unchanged findings consistent with multifocal pneumonia. Minimal lower tracheal secretions. Mediastinal and bilateral hilar lymphadenopathy. (2) Sepsis: Code(s): A41.9 - Sepsis, unspecified organism Status: Acute Assessment and Plan: CT scan done on presentation showed patchy airspace opacities throughout the lungs consistent with pneumonia or pulmonary edema 11/23: Blood, sputum and urine cultures are negative -status post cefepime and azithromycin Nasal MRSA was negative hence vancomycin discontinued in light of worsening renal function -11/29: Patient has been febrile of life with a T-max of 101.1, WBC count is still at 27.4 -11/29: Preliminary blood cultures are negative x2 -11/29: Urine cultures negative -11/29: Sputum cultures growing yeast 12/01; T-max 101.2?, negative venous Dopplers, may have to do a CT scan of chest abdomen and pelvis 12/02: T-max 100.8?, WBC count rising to 29.9, CT scan of the chest showed bilateral multifocal consolidation especially bilateral lower lobes, -completed 10 days of meropenem and vancomycin on 12/11/ WBC increased. Patient now experiencing abdominal pain Continue antibiotics CT abdomen pelvis as below. Normal lipase. CVC removed 12/10 afebrile overnight and WBC improved 12/11: Remains afebrile and WBC count improved 12/12: T-max of 100.1?, WBC increased to 21.3 (3) Abdominal pain: Code(s): R10.9 - Unspecified abdominal pain Status: Acute Assessment and Plan: PEG tube placed 12/07 tube feeds were resumed and advanced to 40 mL yesterday Overnight patient started complaining of abdominal pain. Tube feeds were held and GI was notified. KUB was done On my review KUB showed gas-filled stomach. Tolerating tube feeds CT scan Interval PEG tube insertion without evidence of extravasation of injected contrast material. Lipase normal Symptoms improved now and patient denies any pain. Tube feeds were started yesterday at a low rate currently on hold for cardiac catheterization 12/11: Increase tube feeds to wall (4) Acute kidney injury superimposed on CKD: Code(s): N17.9 - Acute kidney failure, unspecified; N18.9 - Chronic kidney disease, unspecified Status: Acute Assessment and Plan: Patient has history of chronic kidney disease likely secondary to diabetes and hypertension and now presented with much elevated creatinine which is likely multifactorial and secondary to sepsis, hypoxia and cardiac arrest. She also received IV contrast for her CTA although that is probably not responsible
[2023-12-12] MEDS: MEROPENEM 500 MG in SODIUM CHLORIDE 0.9% IV 100 ML 200 ML IVPB (14:47)
[2023-12-12 16:35] LABS: Glucose Point of Care 247 mg/dl (65-105)
[2023-12-12] MEDS: ALPRAZolam (*CRX) 0.5 MG TABLET FEED TUBE (21:08)
[2023-12-12] MEDS: traZODone HCL 50 MG TABLET PO (21:08)
[2023-12-12 21:22] LABS: Glucose Point of Care 286 mg/dl (65-105)
[2023-12-12 23:07] LABS: Glucose Point of Care 240 mg/dl (65-105)
[2023-12-13] VITALS (27 sets, daily range): BP systolic 107–165; BP diastolic 35–83; PULSE 78–100; RESP 18–30; TEMP 36.9–37.7; O2SAT 90–98
[2023-12-13] MEDS: ALBUTEROL SULFATE NEB 2.5 MG/3 ML INH 5 MG INHALATION ×4 (02:22→19:58)
[2023-12-13] MEDS: IPRATROPIUM BR 0.02% INH SOLN 0.5 MG/2.5 ML VIAL INHALATION ×4 (02:22→19:58)
[2023-12-13 03:54] LABS: Glucose Point of Care 225 mg/dl (65-105)
[2023-12-13 05:40] LABS: Alveolar/Arterial O2 Gradient 173.2 mmHg; Base Excess ABG -0.1 mEq/l (+/-2.0); Carboxyhemoglobin 0.8 % THb (0-2.0); Fractional Inspired Oxygen 40 %; HCO3 ABG 23.3 mEq/l (22.0-26.0); Methemoglobin ABG 0.3 %THb (0-1.5); Oxygen Content ABG 13.3 %vol (16.0-22.0); Oxygen Saturation ABG 95.7 % (95.0-100.0); Oxyhemoglobin 92.2 % THb (90.0-100.0); PCO2 ABG 33.3 mmHg (35.0-45.0); PO2 ABG 73.7 mmHg (80.0-100.0); PO2 FiO2 Ratio Arterial Blood 1.84 %; Reduced Hemoglobin 6.7 %THb (0-5.0); Total Hemoglobin 10.2 g/dL (12.0-18.0); pH ABG 7.462 (7.350-7.450)
[2023-12-13 05:41] LABS: Device VENTILATOR; Modified Allen's Test Pass; Site Drawn RIGHT RADIAL
[2023-12-13 05:42] LABS: Arterial Blood Gas PEEP 12 cmH2O; Arterial Blood Gas Tidal Volume 350 ml; Arterial Blood Gas Vent Mode CMV; Arterial Blood Gas Ventilator rate 16 /MIN
[2023-12-13] MEDS: METOCLOPRAMIDE HCL INJ 10 MG/2 ML VIAL IV PUSH ×4 (05:45→23:21)
[2023-12-13] MEDS: CENTRAL LINE FLUSH 10 ML IV PUSH ×3 (05:46→22:29)
[2023-12-13 06:10] LABS: Hematocrit 25.5 % (37.0-47.0); Hemoglobin 7.1 g/dL (12.0-15.0); Mean Corpuscular HGB Conc 27.8 g/dl (32-36); Mean Corpuscular Hemoglobin 25.8 pg (26-34); Mean Corpuscular Volume 92.7 fl (80-100); Mean Platelet Volume 9.7 fl (7.4-10.4); Platelet Count Result 484 k/mm3 (150-375); Red Blood Count 2.75 M/mm3 (4.2-5.4); Red Cell Distribution Width 15.8 % (11.5-14.5); White Blood Count 19.2 K/mm3 (4.5-10.0)
[2023-12-13 06:24] LABS: Alanine Aminotransferase 32 U/L (6-35); Albumin Level 2.8 g/dL (3.5-5.1); Alkaline Phosphatase 185 U/L (38-126); Anion Gap 10 mmol/L (8-16); Aspartate Amino Transferase 35 U/L (14-36); Bilirubin,Total 0.7 mg/dL (0.2-1.3); Blood Urea Nitrogen 73 mg/dL (7-17); Calcium 8.8 mg/dL (8.4-10.2); Carbon Dioxide 24 mmol/L (22-30); Chloride 100 mmol/L (98-107); Estimated CRCL calculation 30 ml/min; Estimated Glomerular Filt Rate 21; Glucose 318 mg/dL (65-110); Magnesium 1.9 mg/dL (1.6-2.3); Phosphorus 4.3 mg/dL (2.5-4.5); Potassium 3.9 mmol/L (3.4-5.0); Sodium 134 mmol/L (137-145); Triglycerides 92 mg/dL (<150)
[2023-12-13 07:42] LABS: Glucose Point of Care 370 mg/dl (65-105)
[2023-12-13] MEDS: polyethylene glycoL 3350 17 GM POWD.PACK PO (08:45)
[2023-12-13] MEDS: BISACODYL 10 MG SUPPOSITORY RECTAL (08:45)
[2023-12-13] MEDS: carvediloL 25 MG TABLET PO ×2 (08:45→20:53)
[2023-12-13] MEDS: PANTOPRAZOLE SODIUM IV 40 MG VIAL IV PUSH ×2 (08:45→20:53)
[2023-12-13] MEDS: ROSUVASTATIN 10 MG TABLET 20 MG PO (08:46)
[2023-12-13] MEDS: amLODIPine BESYLATE 5 MG TABLET 10 MG PO (08:47)
[2023-12-13] MEDS: BUMETANIDE INJ 1 MG/4 ML VIAL 1.5 MG IV PUSH (08:49)
[2023-12-13] MEDS: CLOPIDOGREL BISULFATE 75 MG TABLET PO (08:54)
[2023-12-13] MEDS: INSULIN ASPART (*BKC) 100 UNITS/ML SUB-Q ×5 (09:05→23:18)
[2023-12-13] MEDS: INSULIN GLARGINE (*BKC) 100 UNITS/ML 30 UNITS SUB-Q (09:05)
[2023-12-13 11:29] LABS: Glucose Point of Care 358 mg/dl (65-105)
--- NOTE | 2023-12-13 12:14 | PCFNICU ---
ICU Rounding Note: Pt current nutrition is NPO (TF held) 2/2 EGD at 1400. Nutrition recommendation: Resume TF of [place]ro at 40mL/hr (1584 kcal, 71g protein, 141g CHO, 640mL H2O). Last recorded weight is 100.7 kg. Weight up 2.8 kg/3% x 7 days. Bowel Motility: 12/12/23 Labs Reviewed: Hgb 7.1, Hct 25.5, Na 134, glucose 318 Meds Noted: Dulcolax, Novolog, Lantus, Reglan, Morphine, Zofran, MiraLAX, Protonix Skin: No open areas Additional Notes: Glucose trending up but TF formula lower in CHO. Consider making adjustments to insulin regimen. Patient was tolerating TF at goal. Plan is to try to hold off on dialysis to see if patient can be weaned. Following daily in ICU rounds. Will monitor weight, labs, skin, medication, tube feeding tolerance every Sunday and Sunday. .
--- NOTE | 2023-12-13 12:46 | P.PNNP_ITS ---
Progress Note: A&P Assessment and Plan (1) JOHN PAUL (acute kidney injury): Code(s): N17.9 - Acute kidney failure, unspecified Status: Acute Assessment and Plan: * ATN due to multifactorial etiology: * cardiac arrest * hemodynamic instability * sepsis/infection * hypoxia * contrast exposure (CTA of chest on admission) * pre-renal factors * diuretic therapy prior to admission * evaluation to date: * CT scan of abdomen without obstruction * renal ultrasound left renal scarring and volume loss * CPK normal * urine electrolytes prerenal * urine eosinophils negative * moderate proteinuria * last HD treatment on 12/10/23 with dialysis currently on hld * diminished urine output noted in the last 24 - 48 hours * trial of IV diuretics yesterday (bumex 1.5mg IV x 1) -- will repeat today * continue to follow trend of labs and UOP (2) Stage 3b chronic kidney disease: Code(s): N18.32 - Chronic kidney disease, stage 3b Status: Chronic Assessment and Plan: * evidence of renal insufficiency/chronic kidney disease 2021 * creatinine seems to run around 1.3 - 1.7mg/dl * presumably due to hypertension, diabetes, and vascular disease (3) Sepsis: Code(s): A41.9 - Sepsis, unspecified organism Status: Acute Assessment and Plan: * suspect secondary to pneumonia based on imaging testing to date * white blood cell count still elevated * completed course of antibiotics * off vasopressor therapy (4) Acute hypoxic respiratory failure: Code(s): J96.01 - Acute respiratory failure with hypoxia Status: Acute Assessment and Plan: * felt to be secondary to combination of pneumonia and pulmonary edema in conjunction with cardiac arrest * fluid removal with dialysis initially; now attempting diuresis/IV diuretics * antibiotics for pneumonia * s/p tracheostomy and G-tube placement (on 12/07/23) * continue ventilator support with weaning as tolerated (5) Cardiac arrest: Code(s): I46.9 - Cardiac arrest, cause unspecified Status: Acute Assessment and Plan: * etiology not entirely clear: * pneumonia? * CHF? * hyperkalemia? * primary cardiac event? * trend of troponins (elevation could just be from cardiac arrest + CPR) * Echo shows limited views but seems grossly normal * s/p cardiac catheterization with results noted (6) CAD (coronary artery disease): Code(s): I25.10 - Atherosclerotic heart disease of [place] coronary artery without angina pectoris Status: Acute Assessment and Plan: * s/p cardiac cath (on 12/10/23) with findings noted: * severe 2 vessel CAD with high-grade lesions in the mid LAD and proximal RCA * successful revascularization of both lesions using drug eluting stents * EF ~ 45% * continue onging medical management (7) Diabetes: Code(s): E11.9 - Type 2 diabetes mellitus without complications Status: Chronic Assessment and Plan: * follow accu-cheks * glycemic control per body fitter/hospitalists Discussed with Dr. Arellano. Will continue to follow. Subjective Date/time seen: 12/13/23 12:46 Interval history: Follow-up for acute kidney injury/acute renal failure on chronic kidney disease. Marginal urine output in the last 24 hours with IV bumex although renal function/parameters (BUN + creatinine) with no significant change; remains on mechanical ventilation via tracheostomy; hemodynamically stable at this time; mentation
--- NOTE | 2023-12-13 12:46 | PM.PNNEP ---
Progress Note: A&P Assessment and Plan (1) JOHN PAUL (acute kidney injury): Code(s): N17.9 - Acute kidney failure, unspecified Status: Acute Assessment and Plan: ATN due to multifactorial etiology: cardiac arrest hemodynamic instability sepsis/infection hypoxia contrast exposure (CTA of chest on admission) pre-renal factors diuretic therapy prior to admission evaluation to date: CT scan of abdomen without obstruction renal ultrasound left renal scarring and volume loss CPK normal urine electrolytes prerenal urine eosinophils negative moderate proteinuria last HD treatment on 12/10/23 with dialysis currently on hld diminished urine output noted in the last 24 - 48 hours trial of IV diuretics yesterday (bumex 1.5mg IV x 1) -- will repeat today continue to follow trend of labs and UOP (2) Stage 3b chronic kidney disease: Code(s): N18.32 - Chronic kidney disease, stage 3b Status: Chronic Assessment and Plan: evidence of renal insufficiency/chronic kidney disease 2021 creatinine seems to run around 1.3 - 1.7mg/dl presumably due to hypertension, diabetes, and vascular disease (3) Sepsis: Code(s): A41.9 - Sepsis, unspecified organism Status: Acute Assessment and Plan: suspect secondary to pneumonia based on imaging testing to date white blood cell count still elevated completed course of antibiotics off vasopressor therapy (4) Acute hypoxic respiratory failure: Code(s): J96.01 - Acute respiratory failure with hypoxia Status: Acute Assessment and Plan: felt to be secondary to combination of pneumonia and pulmonary edema in conjunction with cardiac arrest fluid removal with dialysis initially; now attempting diuresis/IV diuretics antibiotics for pneumonia s/p tracheostomy and G-tube placement (on 12/07/23) continue ventilator support with weaning as tolerated (5) Cardiac arrest: Code(s): I46.9 - Cardiac arrest, cause unspecified Status: Acute Assessment and Plan: etiology not entirely clear: pneumonia? CHF? hyperkalemia? primary cardiac event? trend of troponins (elevation could just be from cardiac arrest + CPR) Echo shows limited views but seems grossly normal s/p cardiac catheterization with results noted (6) CAD (coronary artery disease): Code(s): I25.10 - Atherosclerotic heart disease of [place] coronary artery without angina pectoris Status: Acute Assessment and Plan: s/p cardiac cath (on 12/10/23) with findings noted: severe 2 vessel CAD with high-grade lesions in the mid LAD and proximal RCA successful revascularization of both lesions using drug eluting stents EF ~ 45% continue onging medical management (7) Diabetes: Code(s): E11.9 - Type 2 diabetes mellitus without complications Status: Chronic Assessment and Plan: follow accu-cheks glycemic control per correspondence dictator/hospitalists Discussed with Dr. Arellano. Will continue to follow. Subjective Date/time seen: 12/13/23 12:46 Interval history: Follow-up for acute kidney injury/acute renal failure on chronic kidney disease. Marginal urine output in the last 24 hours with IV bumex although renal function/parameters (BUN + creatinine) with no significant change; remains on mechanical ventilation via tracheostomy; hemodynamically stable at this time; mentation is stable if not better -- awake and alert; follows commands; nods to questions; no apparent distress; noted plans for EGD today. Exam Narrative: General: large WD/WN female on mechanical ventilation via tracheostomy Heart: normal S1 and S2; no rub Lungs: coarse upper airway breath sounds; decreased at bases Abdomen: soft, nontender, nondistended, positive bowel sounds Extremities: trace edema noted Skin: no rash Objective Data Vital Signs Vital Signs: Vital Signs Temp Pulse
--- NOTE | 2023-12-13 12:50 | WPDINTPN ---
Progress Note: A&P Assessment and Plan (1) Acute hypoxic respiratory failure: Code(s): J96.01 - Acute respiratory failure with hypoxia Status: Acute Assessment and Plan: Acute hypoxic respiratory failure likely secondary to combination of pneumonia and pulmonary edema, ? ARDS 12/07/2023: status post tracheostomy. Procedure was complicated. Please refer to ENT op note. A size 6 trachea was able to be placed with a flap she has size 6 proximal XLT tracheostomy -chest x-ray this morning: Mild central pulmonary edema pattern. Correlate clinically for infection -currently on 40 % FiO2 and peep of 12. Will wean PEEP to 10 -currently dialysis on hold, discussed with Nephrology, -patient diuresed with Bumex 1.5 mg IV x1 on 12/12 -will repeat Bumex 1.5 mg IV x1 today -Continue bronchodilators -off all sedation -off all antibiotics 12/02 CT scan of the chest abdomen and pelvis, since patient has had fevers and elevated WBC count IMPRESSION: 1. Multifocal consolidation in the lungs, consistent with pneumonia. 2: Mediastinal lymphadenopathy, likely reactive. 12/02: CT scan of the brain in sinus without contrast IMPRESSION: 1. No acute intracranial abnormality. No evidence for significant sinus disease. 12/04 chest CTA Limited evaluation of subsegmental arteries. No CT evidence of acute central or segmental pulmonary embolus. Unchanged findings consistent with multifocal pneumonia. Minimal lower tracheal secretions. Mediastinal and bilateral hilar lymphadenopathy. (2) Sepsis: Code(s): A41.9 - Sepsis, unspecified organism Status: Acute Assessment and Plan: CT scan done on presentation showed patchy airspace opacities throughout the lungs consistent with pneumonia or pulmonary edema 11/23: Blood, sputum and urine cultures are negative -status post cefepime and azithromycin Nasal MRSA was negative hence vancomycin discontinued in light of worsening renal function -11/29: Patient has been febrile of life with a T-max of 101.1, WBC count is still at 27.4 -11/29: Preliminary blood cultures are negative x2 -11/29: Urine cultures negative -11/29: Sputum cultures growing yeast 12/01; T-max 101.2?, negative venous Dopplers, may have to do a CT scan of chest abdomen and pelvis 12/02: T-max 100.8?, WBC count rising to 29.9, CT scan of the chest showed bilateral multifocal consolidation especially bilateral lower lobes, -completed 10 days of meropenem and vancomycin on 12/11/ WBC increased. Patient now experiencing abdominal pain Continue antibiotics CT abdomen pelvis as below. Normal lipase. CVC removed 12/10 afebrile overnight and WBC improved 12/11: Remains afebrile and WBC count improved 12/12: T-max of 100.1?, WBC increased to 21.3 Patient has been afebrile, WBC trending down, will continue to monitor (3) Abdominal pain: Code(s): R10.9 - Unspecified abdominal pain Status: Acute Assessment and Plan: PEG tube placed 12/07 tube feeds were resumed and advanced to 40 mL yesterday Overnight patient started complaining of abdominal pain. Tube feeds were held and GI was notified. KUB was done On my review KUB showed gas-filled stomach. Tolerating tube feeds CT scan Interval PEG tube insertion without evidence of extravasation of injected contrast material. Lipase normal Symptoms improved now and patient denies any pain. Tube feeds were started yesterday at a low rate currently on hold for cardiac catheterization 12/11: Increase tube feeds to wall (4) Acute kidney injury superimposed on CKD: Code(s): N17.9 - Acute kidney failure, unspecified; N18.9 - Chronic kidney disease, unspecified Status: Acute Assessment and Plan: Patient has history of chronic kidney disease likely secondary to diabetes and hypertension and now presented with much elevated creatinine which is likely multifactorial and secondary to sepsis, hypoxia and cardiac arrest. She also received IV c
[2023-12-13] MEDS: PROPOFOL IV EMULSION 100 ML 6.04 MG IV CONT (13:04)
--- NOTE | 2023-12-13 13:14 | SUR.OPER ---
Sedation done by [employer]
[2023-12-13 16:10] LABS: Glucose Point of Care 309 mg/dl (65-105)
[2023-12-13] MEDS: traZODone HCL 50 MG TABLET PO (20:53)
[2023-12-13] MEDS: ALPRAZolam (*CRX) 0.5 MG TABLET FEED TUBE (20:53)
[2023-12-13 21:07] LABS: Glucose Point of Care 238 mg/dl (65-105)
[2023-12-13] MEDS: ACETAMINOPHEN ELIXIR 325 MG/10.15 ML UDC 650 MG PO (22:00)
[2023-12-13 23:21] LABS: Glucose Point of Care 286 mg/dl (65-105)
[2023-12-14] VITALS (28 sets, daily range): BP systolic 134–165; BP diastolic 59–88; PULSE 77–90; RESP 13–30; TEMP 36.6–37.7; O2SAT 92–100
[2023-12-14] MEDS: ALBUTEROL SULFATE NEB 2.5 MG/3 ML INH 5 MG INHALATION ×4 (02:30→20:01)
[2023-12-14] MEDS: IPRATROPIUM BR 0.02% INH SOLN 0.5 MG/2.5 ML VIAL INHALATION ×4 (02:30→20:01)
[2023-12-14] MEDS: METOCLOPRAMIDE HCL INJ 10 MG/2 ML VIAL IV PUSH (04:46)
[2023-12-14] MEDS: INSULIN ASPART (*BKC) 100 UNITS/ML SUB-Q ×5 (04:46→21:01)
[2023-12-14] MEDS: CENTRAL LINE FLUSH 10 ML IV PUSH ×3 (04:46→20:55)
[2023-12-14 04:55] LABS: Glucose Point of Care 265 mg/dl (65-105)
[2023-12-14 05:02] LABS: Hematocrit 25.5 % (37.0-47.0); Hemoglobin 7.5 g/dL (12.0-15.0); Mean Corpuscular HGB Conc 29.4 g/dl (32-36); Mean Corpuscular Hemoglobin 26.4 pg (26-34); Mean Corpuscular Volume 89.8 fl (80-100); Mean Platelet Volume 9.6 fl (7.4-10.4); Platelet Count Result 509 k/mm3 (150-375); Red Blood Count 2.84 M/mm3 (4.2-5.4); Red Cell Distribution Width 15.9 % (11.5-14.5); White Blood Count 16.8 K/mm3 (4.5-10.0)
[2023-12-14 05:14] LABS: Alanine Aminotransferase 32 U/L (6-35); Albumin Level 2.6 g/dL (3.5-5.1); Alkaline Phosphatase 181 U/L (38-126); Anion Gap 5 mmol/L (8-16); Aspartate Amino Transferase 40 U/L (14-36); Bilirubin,Total 0.6 mg/dL (0.2-1.3); Blood Urea Nitrogen 77 mg/dL (7-17); Carbon Dioxide 28 mmol/L (22-30); Chloride 101 mmol/L (98-107); Estimated CRCL calculation 36 ml/min; Estimated Glomerular Filt Rate 26; Glucose 263 mg/dL (65-110); Magnesium 1.8 mg/dL (1.6-2.3); Phosphorus 4.5 mg/dL (2.5-4.5); Potassium 3.6 mmol/L (3.4-5.0); Sodium 134 mmol/L (137-145)
[2023-12-14 08:10] LABS: Glucose Point of Care 249 mg/dl (65-105)
[2023-12-14] MEDS: BUMETANIDE INJ 1 MG/4 ML VIAL 1.5 MG IV PUSH (08:30)
[2023-12-14] MEDS: ASPIRIN 81 MG CHEWABLE TABLET PO (08:31)
[2023-12-14] MEDS: ROSUVASTATIN 10 MG TABLET 20 MG PO (08:31)
[2023-12-14] MEDS: CLOPIDOGREL BISULFATE 75 MG TABLET PO (08:31)
[2023-12-14] MEDS: carvediloL 25 MG TABLET PO ×2 (08:31→20:54)
[2023-12-14] MEDS: ACETAMINOPHEN ELIXIR 325 MG/10.15 ML UDC 650 MG PO (08:31)
[2023-12-14] MEDS: amLODIPine BESYLATE 5 MG TABLET 10 MG PO (08:31)
[2023-12-14] MEDS: MINERAL OIL/WHITE PETROLATUM OINTMENT 1 APPLIC EACH EYE (08:32)
[2023-12-14] MEDS: INSULIN GLARGINE (*BKC) 100 UNITS/ML 45 UNITS SUB-Q (08:32)
[2023-12-14] MEDS: PANTOPRAZOLE SODIUM IV 40 MG VIAL IV PUSH ×2 (08:32→20:54)
--- NOTE | 2023-12-14 11:13 | P.PNNP_ITS ---
Progress Note: A&P Assessment and Plan (1) JOHN PAUL (acute kidney injury): Code(s): N17.9 - Acute kidney failure, unspecified Status: Acute Assessment and Plan: * ATN due to multifactorial etiology: * cardiac arrest * hemodynamic instability * sepsis/infection * hypoxia * contrast exposure (CTA of chest on admission) * pre-renal factors * diuretic therapy prior to admission * evaluation to date: * CT scan of abdomen without obstruction * renal ultrasound left renal scarring and volume loss * CPK normal * urine electrolytes prerenal * urine eosinophils negative * moderate proteinuria * last HD treatment on 12/10/23 with dialysis currently on hold * increased urine output noted in the last 24 hours * bumex 1.5mg IV x 1 on 12/12 and 12/13 -- will repeat today * continue to follow trend of labs and UOP (2) Stage 3b chronic kidney disease: Code(s): N18.32 - Chronic kidney disease, stage 3b Status: Chronic Assessment and Plan: * evidence of renal insufficiency/chronic kidney disease 2021 * creatinine seems to run around 1.3 - 1.7mg/dl * presumably due to hypertension, diabetes, and vascular disease (3) Sepsis: Code(s): A41.9 - Sepsis, unspecified organism Status: Acute Assessment and Plan: * suspect secondary to pneumonia based on imaging testing to date * white blood cell count elevated (but better) * completed course of antibiotics * off vasopressor therapy (4) Acute hypoxic respiratory failure: Code(s): J96.01 - Acute respiratory failure with hypoxia Status: Acute Assessment and Plan: * felt to be secondary to combination of pneumonia and pulmonary edema in conjunction with cardiac arrest * fluid removal with dialysis initially - now tolerating diuresis/IV diuretics * antibiotics for pneumonia * s/p tracheostomy and G-tube placement (on 12/07/23) * continue ventilator support with weaning as tolerated (5) Cardiac arrest: Code(s): I46.9 - Cardiac arrest, cause unspecified Status: Acute Assessment and Plan: * etiology not entirely clear: * pneumonia? * CHF? * hyperkalemia? * primary cardiac event? * trend of troponins noted (elevation could just be from cardiac arrest + CPR) * Echo shows limited views but seems grossly normal * s/p cardiac catheterization with results noted (6) CAD (coronary artery disease): Code(s): I25.10 - Atherosclerotic heart disease of [place] coronary artery without angina pectoris Status: Acute Assessment and Plan: * s/p cardiac cath (on 12/10/23) with findings noted: * severe 2 vessel CAD with high-grade lesions in the mid LAD and proximal RCA * successful revascularization of both lesions using drug eluting stents * EF ~ 45% * continue onging medical management (7) Diabetes: Code(s): E11.9 - Type 2 diabetes mellitus without complications Status: Chronic Assessment and Plan: * follow accu-cheks * glycemic control per spectacle truer/hospitalists Discussed with Dr. Arellano. Will continue to follow. Subjective Date/time seen: 12/14/23 11:13 Interval history: Follow-up for acute kidney injury/acute renal failure on chronic kidney disease. Remains on mechanical ventilation via tracheostomy; mentation remains stable as well (off all sedation and is awake, alert, and following commands); stable hemodynamics without the need for vasopressor therapy; increased/better urine output with I
--- NOTE | 2023-12-14 11:13 | PM.PNNEP ---
Progress Note: A&P Assessment and Plan (1) JOHN PAUL (acute kidney injury): Code(s): N17.9 - Acute kidney failure, unspecified Status: Acute Assessment and Plan: ATN due to multifactorial etiology: cardiac arrest hemodynamic instability sepsis/infection hypoxia contrast exposure (CTA of chest on admission) pre-renal factors diuretic therapy prior to admission evaluation to date: CT scan of abdomen without obstruction renal ultrasound left renal scarring and volume loss CPK normal urine electrolytes prerenal urine eosinophils negative moderate proteinuria last HD treatment on 12/10/23 with dialysis currently on hold increased urine output noted in the last 24 hours bumex 1.5mg IV x 1 on 12/12 and 12/13 -- will repeat today continue to follow trend of labs and UOP (2) Stage 3b chronic kidney disease: Code(s): N18.32 - Chronic kidney disease, stage 3b Status: Chronic Assessment and Plan: evidence of renal insufficiency/chronic kidney disease 2021 creatinine seems to run around 1.3 - 1.7mg/dl presumably due to hypertension, diabetes, and vascular disease (3) Sepsis: Code(s): A41.9 - Sepsis, unspecified organism Status: Acute Assessment and Plan: suspect secondary to pneumonia based on imaging testing to date white blood cell count elevated (but better) completed course of antibiotics off vasopressor therapy (4) Acute hypoxic respiratory failure: Code(s): J96.01 - Acute respiratory failure with hypoxia Status: Acute Assessment and Plan: felt to be secondary to combination of pneumonia and pulmonary edema in conjunction with cardiac arrest fluid removal with dialysis initially - now tolerating diuresis/IV diuretics antibiotics for pneumonia s/p tracheostomy and G-tube placement (on 12/07/23) continue ventilator support with weaning as tolerated (5) Cardiac arrest: Code(s): I46.9 - Cardiac arrest, cause unspecified Status: Acute Assessment and Plan: etiology not entirely clear: pneumonia? CHF? hyperkalemia? primary cardiac event? trend of troponins noted (elevation could just be from cardiac arrest + CPR) Echo shows limited views but seems grossly normal s/p cardiac catheterization with results noted (6) CAD (coronary artery disease): Code(s): I25.10 - Atherosclerotic heart disease of [place] coronary artery without angina pectoris Status: Acute Assessment and Plan: s/p cardiac cath (on 12/10/23) with findings noted: severe 2 vessel CAD with high-grade lesions in the mid LAD and proximal RCA successful revascularization of both lesions using drug eluting stents EF ~ 45% continue onging medical management (7) Diabetes: Code(s): E11.9 - Type 2 diabetes mellitus without complications Status: Chronic Assessment and Plan: follow accu-cheks glycemic control per targeteer/hospitalists Discussed with Dr. Arellano. Will continue to follow. Subjective Date/time seen: 12/14/23 11:13 Interval history: Follow-up for acute kidney injury/acute renal failure on chronic kidney disease. Remains on mechanical ventilation via tracheostomy; mentation remains stable as well (off all sedation and is awake, alert, and following commands); stable hemodynamics without the need for vasopressor therapy; increased/better urine output with IV diuretics in the last 24 hours with improvement if not stability in renal function. Exam Narrative: General: large WD/WN female on mechanical ventilation via tracheostomy Heart: normal S1 and S2; no rub Lungs: coarse upper airway breath sounds; decreased at bases Abdomen: soft, nontender, nondistended, positive bowel sounds Extremities: trace edema noted Skin: no nodules Objective Data Vital Signs Vital Signs: Vital Signs Temp Pulse Resp BP Pulse Ox O2 Del Method FiO2 02/
--- NOTE | 2023-12-14 11:19 | WPDINTPN ---
Progress Note: A&P Assessment and Plan (1) Acute hypoxic respiratory failure: Code(s): J96.01 - Acute respiratory failure with hypoxia Status: Acute Assessment and Plan: Acute hypoxic respiratory failure likely secondary to combination of pneumonia and pulmonary edema, ? ARDS 12/07/2023: status post tracheostomy. Procedure was complicated. Please refer to ENT op note. A size 6 trachea was able to be placed with a flap she has size 6 proximal XLT tracheostomy -chest x-ray this morning: Mild central pulmonary edema pattern. Correlate clinically for infection -currently on 40 % FiO2 and peep of 12. Will wean PEEP to 10 -currently dialysis on hold, discussed with Nephrology, -patient diuresed with Bumex 1.5 mg IV x1 on 12/12 and 12/13 with good urine output -will repeat Bumex 1.5 mg IV x1 today -Continue bronchodilators -off all sedation -off all antibiotics 12/02 CT scan of the chest abdomen and pelvis, since patient has had fevers and elevated WBC count IMPRESSION: 1. Multifocal consolidation in the lungs, consistent with pneumonia. 2: Mediastinal lymphadenopathy, likely reactive. 12/02: CT scan of the brain in sinus without contrast IMPRESSION: 1. No acute intracranial abnormality. No evidence for significant sinus disease. 12/04 chest CTA Limited evaluation of subsegmental arteries. No CT evidence of acute central or segmental pulmonary embolus. Unchanged findings consistent with multifocal pneumonia. Minimal lower tracheal secretions. Mediastinal and bilateral hilar lymphadenopathy. (2) Sepsis: Code(s): A41.9 - Sepsis, unspecified organism Status: Acute Assessment and Plan: CT scan done on presentation showed patchy airspace opacities throughout the lungs consistent with pneumonia or pulmonary edema 11/23: Blood, sputum and urine cultures are negative -status post cefepime and azithromycin Nasal MRSA was negative hence vancomycin discontinued in light of worsening renal function -11/29: Patient has been febrile of life with a T-max of 101.1, WBC count is still at 27.4 -11/29: Preliminary blood cultures are negative x2 -11/29: Urine cultures negative -11/29: Sputum cultures growing yeast 12/01; T-max 101.2?, negative venous Dopplers, may have to do a CT scan of chest abdomen and pelvis 12/02: T-max 100.8?, WBC count rising to 29.9, CT scan of the chest showed bilateral multifocal consolidation especially bilateral lower lobes, -completed 10 days of meropenem and vancomycin on 12/11/ WBC increased. Patient now experiencing abdominal pain Continue antibiotics CT abdomen pelvis as below. Normal lipase. CVC removed 12/10 afebrile overnight and WBC improved 12/11: Remains afebrile and WBC count improved 12/12: T-max of 100.1?, WBC increased to 21.3 Patient has been afebrile, WBC trending down, will continue to monitor 12/14: Remains afebrile of white count trending down, continue to monitor (3) Abdominal pain: Code(s): R10.9 - Unspecified abdominal pain Status: Acute Assessment and Plan: PEG tube placed 2/ tube feeds were resumed and advanced to 40 mL yesterday Overnight patient started complaining of abdominal pain. Tube feeds were held and GI was notified. KUB was done On my review KUB showed gas-filled stomach. Tolerating tube feeds CT scan Interval PEG tube insertion without evidence of extravasation of injected contrast material. Lipase normal Symptoms improved now and patient denies any pain. Tube feeds were started yesterday at a low rate currently on hold for cardiac catheterization 12/11: Increase tube feeds to wall (4) Acute kidney injury superimposed on CKD: Code(s): N17.9 - Acute kidney failure, unspecified; N18.9 - Chronic kidney disease, unspecified Status: Acute Assessment and Plan: Patient has history of chronic kidney disease likely secondary to diabetes and hypertension and now presented with much elevated creatin
[2023-12-14 11:55] LABS: Glucose Point of Care 266 mg/dl (65-105)
--- NOTE | 2023-12-14 13:25 | PCNFU ---
Nutrition Follow-Up Complete: Inadequate Oral Intake as related to mechanical ventilation as evidenced by NPO. Goal: Meet estimated nutritional needs. Patient is meeting goal. No new goal. Pt current nutrition is Nepro at 40 ml/hr with Prosource BID. Last recorded weight is 101 kg. Bowel Motility: +Bm reported 12/14 Labs Reviewed:Glu 263, BUN 77,GFR 26, Alb 2.6 Meds Noted:NovoLog,Protonix, Lantus, Atrovent. Skin: WNL Additional Notes: Patient remains current with PEG/Trach. Tube feedings are being tolerating of Nepro at 40 ml/hr with Prosource BID. Total Nutrition: 1744 kcals/111 gms protein/640 ml water. 98% kcal needs at 16 kcal/kg and 78% protein needs at 1.2-1.4 gm/kg. Flush 30 ml q 4 hours. Plans for LTAC at discharge. Will monitor weight, labs, skin, meds, tube feeding tolerance every Sunday and Sunday.
[2023-12-14 16:07] LABS: Glucose Point of Care 267 mg/dl (65-105)
[2023-12-14 17:24] LABS: Triglycerides 134 mg/dL (<150)
[2023-12-14] MEDS: ALPRAZolam (*CRX) 0.5 MG TABLET FEED TUBE ×2 (18:11→20:54)
[2023-12-14] MEDS: traZODone HCL 50 MG TABLET PO (20:54)
[2023-12-14 21:03] LABS: Glucose Point of Care 307 mg/dl (65-105)
[2023-12-15] VITALS (26 sets, daily range): BP systolic 129–150; BP diastolic 57–84; PULSE 79–96; RESP 20–29; TEMP 36.5–37.7; O2SAT 87–96
[2023-12-15] MEDS: INSULIN ASPART (*BKC) 100 UNITS/ML SUB-Q ×5 (00:06→20:52)
[2023-12-15 00:24] LABS: Glucose Point of Care 237 mg/dl (65-105)
[2023-12-15] MEDS: ALBUTEROL SULFATE NEB 2.5 MG/3 ML INH 5 MG INHALATION ×4 (02:05→19:49)
[2023-12-15] MEDS: IPRATROPIUM BR 0.02% INH SOLN 0.5 MG/2.5 ML VIAL INHALATION ×4 (02:05→19:49)
[2023-12-15 04:28] LABS: Glucose Point of Care 183 mg/dl (65-105)
[2023-12-15] MEDS: CENTRAL LINE FLUSH 10 ML IV PUSH ×3 (06:03→21:02)
[2023-12-15 06:21] LABS: Basophils Absolute Auto 0.1 K/mm3 (0.0-0.1); Basophils Percent Auto 0.8 % (0.2-1.2); Eosinophils Absolute Auto 0.5 K/mm3 (0-0.3); Eosinophils Percent Auto 2.9 % (0-4.4); Hematocrit 27.4 % (37.0-47.0); Hemoglobin 8.2 g/dL (12.0-15.0); Immature Granulocyte Absolute 0.36 K/mm3 (0.00-0.031); Immature Granulocyte Percent A 2.3 % (0-0.5); Lymphocytes Absolute Auto 1.68 K/mm3 (0.9-3.2); Lymphocytes Percent Auto 10.8 % (18.3-44.2); Mean Corpuscular HGB Conc 29.9 g/dl (32-36); Mean Corpuscular Hemoglobin 26.5 pg (26-34); Mean Corpuscular Volume 88.7 fl (80-100); Mean Platelet Volume 9.4 fl (7.4-10.4); Monocytes Percent Auto 6.4 % (2.6-8.5); Neutrophils Absolute Auto 11.9 K/mm3 (1.3-6.7); Neutrophils Percent Auto 76.8 % (45.5-73.1); Platelet Count Result 547 k/mm3 (150-375); Red Blood Count 3.09 M/mm3 (4.2-5.4); Red Cell Distribution Width 15.8 % (11.5-14.5); White Blood Count 15.5 K/mm3 (4.5-10.0)
[2023-12-15 06:33] LABS: Blood Urea Nitrogen 63 mg/dL (7-17)
[2023-12-15 06:34] LABS: Alanine Aminotransferase 28 U/L (6-35); Albumin Level 2.7 g/dL (3.5-5.1); Alkaline Phosphatase 176 U/L (38-126); Anion Gap 6 mmol/L (8-16); Aspartate Amino Transferase 36 U/L (14-36); Bilirubin,Total 0.6 mg/dL (0.2-1.3); Calcium 9.1 mg/dL (8.4-10.2); Carbon Dioxide 30 mmol/L (22-30); Chloride 100 mmol/L (98-107); Estimated CRCL calculation 46 ml/min; Estimated Glomerular Filt Rate 35; Glucose 225 mg/dL (65-110); Magnesium 1.4 mg/dL (1.6-2.3); Phosphorus 4.1 mg/dL (2.5-4.5); Potassium 3.4 mmol/L (3.4-5.0); Sodium 136 mmol/L (137-145)
[2023-12-15 07:15] LABS: Hypochromasia 1+ (NORMAL); Platelet Estimate Increased (Adequate)
[2023-12-15 07:16] LABS: Anisocytosis 1+ (NORMAL)
[2023-12-15 07:17] LABS: Schistocytes None Seen (NORMAL)
[2023-12-15] MEDS: INSULIN GLARGINE (*BKC) 100 UNITS/ML 45 UNITS SUB-Q (09:36)
[2023-12-15] MEDS: ROSUVASTATIN 10 MG TABLET 20 MG PO (09:37)
[2023-12-15] MEDS: carvediloL 25 MG TABLET PO ×2 (09:37→21:02)
[2023-12-15] MEDS: amLODIPine BESYLATE 5 MG TABLET 10 MG PO (09:37)
[2023-12-15] MEDS: PANTOPRAZOLE SODIUM IV 40 MG VIAL IV PUSH ×2 (09:37→20:57)
[2023-12-15] MEDS: ASPIRIN 81 MG CHEWABLE TABLET PO (09:37)
[2023-12-15] MEDS: CLOPIDOGREL BISULFATE 75 MG TABLET PO (09:37)
[2023-12-15] MEDS: MINERAL OIL/WHITE PETROLATUM OINTMENT 1 APPLIC EACH EYE ×2 (09:38→20:57)
[2023-12-15 09:42] LABS: Glucose Point of Care 341 mg/dl (65-105)
[2023-12-15 09:48] LABS: Toxigenic C. Diff NEGATIVE (NEGATIVE)
--- NOTE | 2023-12-15 10:03 | P.PNNP_ITS ---
Progress Note: A&P Assessment and Plan (1) JOHN PAUL (acute kidney injury): Code(s): N17.9 - Acute kidney failure, unspecified Status: Acute Assessment and Plan: * improvement noted (if not back to baseline) * ATN due to multifactorial etiology: * cardiac arrest * hemodynamic instability * sepsis/infection * hypoxia * contrast exposure (CTA of chest on admission) * pre-renal factors * diuretic therapy prior to admission * evaluation to date: * CT scan of abdomen without obstruction * renal ultrasound left renal scarring and volume loss * CPK normal * urine electrolytes prerenal * urine eosinophils negative * moderate proteinuria * last HD treatment on 12/10/23 with dialysis currently on hold * increased urine output noted in the last 24 - 48 hours * bumex 1.5mg IV x 1 on 12/12, 12/13, and 12/14/23 * hold today and continue PRN * continue to follow trend of labs and UOP (2) Stage 3b chronic kidney disease: Code(s): N18.32 - Chronic kidney disease, stage 3b Status: Chronic Assessment and Plan: * evidence of renal insufficiency/chronic kidney disease 2021 * creatinine seems to run around 1.3 - 1.7mg/dl * presumably due to hypertension, diabetes, and vascular disease (3) Sepsis: Code(s): A41.9 - Sepsis, unspecified organism Status: Acute Assessment and Plan: * suspect secondary to pneumonia based on imaging testing to date * white blood cell count elevated (but better) * completed course of antibiotics * off vasopressor therapy (4) Acute hypoxic respiratory failure: Code(s): J96.01 - Acute respiratory failure with hypoxia Status: Acute Assessment and Plan: * felt to be secondary to combination of pneumonia and pulmonary edema in conjunction with cardiac arrest * fluid removal with dialysis initially - now tolerating diuresis/IV diuretics as needed * complete course of antibiotics for pneumonia * s/p tracheostomy and G-tube placement (on 12/07/23) * continue ventilator support with weaning as tolerated (5) Cardiac arrest: Code(s): I46.9 - Cardiac arrest, cause unspecified Status: Acute Assessment and Plan: * etiology not entirely clear: * pneumonia? * CHF? * hyperkalemia? * primary cardiac event? * trend of troponins noted (elevation could just be from cardiac arrest + CPR) * Echo shows limited views but seems grossly normal * s/p cardiac catheterization with results noted (see #6) (6) CAD (coronary artery disease): Code(s): I25.10 - Atherosclerotic heart disease of [place] coronary artery without angina pectoris Status: Acute Assessment and Plan: * s/p cardiac cath (on 12/10/23) with findings noted: * severe 2 vessel CAD with high-grade lesions in the mid LAD and proximal RCA * successful revascularization of both lesions using drug eluting stents * EF ~ 45% * continue onging medical management (7) Diabetes: Code(s): E11.9 - Type 2 diabetes mellitus without complications Status: Chronic Assessment and Plan: * follow accu-cheks * glycemic control per pm head cook/hospitalists Discussed with Dr. Arellano. Will continue to follow. Subjective Date/time seen: 12/15/23 10:03 Interval history: Follow-up for acute kidney injury/acute renal failure on chronic kidney disease. Tolerated IV diuretics yesterday with good urine output note and stability if not improvement in renal function; remains on mecha
--- NOTE | 2023-12-15 10:03 | PM.PNNEP ---
Progress Note: A&P Assessment and Plan (1) JOHN PAUL (acute kidney injury): Code(s): N17.9 - Acute kidney failure, unspecified Status: Acute Assessment and Plan: improvement noted (if not back to baseline) ATN due to multifactorial etiology: cardiac arrest hemodynamic instability sepsis/infection hypoxia contrast exposure (CTA of chest on admission) pre-renal factors diuretic therapy prior to admission evaluation to date: CT scan of abdomen without obstruction renal ultrasound left renal scarring and volume loss CPK normal urine electrolytes prerenal urine eosinophils negative moderate proteinuria last HD treatment on 12/10/23 with dialysis currently on hold increased urine output noted in the last 24 - 48 hours bumex 1.5mg IV x 1 on 12/12, 12/13, and 12/14/23 hold today and continue PRN continue to follow trend of labs and UOP (2) Stage 3b chronic kidney disease: Code(s): N18.32 - Chronic kidney disease, stage 3b Status: Chronic Assessment and Plan: evidence of renal insufficiency/chronic kidney disease 2021 creatinine seems to run around 1.3 - 1.7mg/dl presumably due to hypertension, diabetes, and vascular disease (3) Sepsis: Code(s): A41.9 - Sepsis, unspecified organism Status: Acute Assessment and Plan: suspect secondary to pneumonia based on imaging testing to date white blood cell count elevated (but better) completed course of antibiotics off vasopressor therapy (4) Acute hypoxic respiratory failure: Code(s): J96.01 - Acute respiratory failure with hypoxia Status: Acute Assessment and Plan: felt to be secondary to combination of pneumonia and pulmonary edema in conjunction with cardiac arrest fluid removal with dialysis initially - now tolerating diuresis/IV diuretics as needed complete course of antibiotics for pneumonia s/p tracheostomy and G-tube placement (on 12/07/23) continue ventilator support with weaning as tolerated (5) Cardiac arrest: Code(s): I46.9 - Cardiac arrest, cause unspecified Status: Acute Assessment and Plan: etiology not entirely clear: pneumonia? CHF? hyperkalemia? primary cardiac event? trend of troponins noted (elevation could just be from cardiac arrest + CPR) Echo shows limited views but seems grossly normal s/p cardiac catheterization with results noted (see #6) (6) CAD (coronary artery disease): Code(s): I25.10 - Atherosclerotic heart disease of [place] coronary artery without angina pectoris Status: Acute Assessment and Plan: s/p cardiac cath (on 12/10/23) with findings noted: severe 2 vessel CAD with high-grade lesions in the mid LAD and proximal RCA successful revascularization of both lesions using drug eluting stents EF ~ 45% continue onging medical management (7) Diabetes: Code(s): E11.9 - Type 2 diabetes mellitus without complications Status: Chronic Assessment and Plan: follow accu-cheks glycemic control per battery inspector/hospitalists Discussed with Dr. Arellano. Will continue to follow. Subjective Date/time seen: 12/15/23 10:03 Interval history: Follow-up for acute kidney injury/acute renal failure on chronic kidney disease. Tolerated IV diuretics yesterday with good urine output note and stability if not improvement in renal function; remains on mechanical ventilation via tracheostomy; mentation remains stable as is hemodynamics; no apparent distress voiced at the time of my visit; no acute issues/events overnight or earlier this morning. Exam Narrative: General: large WD/WN female on mechanical ventilation via tracheostomy Heart: normal S1 and S2; no rub Lungs: coarse upper airway breath sounds; decreased at bases Abdomen: soft, nontender, nondistended, positive bowel sounds Extremities: trace edema noted Skin: warm and dry Objective Data V
--- NOTE | 2023-12-15 11:37 | WPDINTPN ---
Progress Note: A&P Assessment and Plan (1) Acute hypoxic respiratory failure: Code(s): J96.01 - Acute respiratory failure with hypoxia Status: Acute Assessment and Plan: Acute hypoxic respiratory failure likely secondary to combination of pneumonia and pulmonary edema, ? ARDS 12/07/2023: status post tracheostomy. Procedure was complicated. Please refer to ENT op note. A size 6 trachea was able to be placed with a flap she has size 6 proximal XLT tracheostomy -chest x-ray this morning: Mild central pulmonary edema pattern. Correlate clinically for infection -currently on 40 % FiO2 and peep of 12. Will wean PEEP to 10 -currently dialysis on hold, discussed with Nephrology, -patient diuresed with Bumex 1.5 mg IV x1 on 12/12, 12/13, 12/14. -Continue bronchodilators -off all sedation -off all antibiotics 12/02 CT scan of the chest abdomen and pelvis, since patient has had fevers and elevated WBC count IMPRESSION: 1. Multifocal consolidation in the lungs, consistent with pneumonia. 2: Mediastinal lymphadenopathy, likely reactive. 12/02: CT scan of the brain in sinus without contrast IMPRESSION: 1. No acute intracranial abnormality. No evidence for significant sinus disease. 12/04 chest CTA Limited evaluation of subsegmental arteries. No CT evidence of acute central or segmental pulmonary embolus. Unchanged findings consistent with multifocal pneumonia. Minimal lower tracheal secretions. Mediastinal and bilateral hilar lymphadenopathy. (2) Sepsis: Code(s): A41.9 - Sepsis, unspecified organism Status: Acute Assessment and Plan: CT scan done on presentation showed patchy airspace opacities throughout the lungs consistent with pneumonia or pulmonary edema 11/23: Blood, sputum and urine cultures are negative -status post cefepime and azithromycin Nasal MRSA was negative hence vancomycin discontinued in light of worsening renal function -11/29: Patient has been febrile of life with a T-max of 101.1, WBC count is still at 27.4 -11/29: Preliminary blood cultures are negative x2 -11/29: Urine cultures negative -11/29: Sputum cultures growing yeast 12/01; T-max 101.2?, negative venous Dopplers, may have to do a CT scan of chest abdomen and pelvis 12/02: T-max 100.8?, WBC count rising to 29.9, CT scan of the chest showed bilateral multifocal consolidation especially bilateral lower lobes, -completed 10 days of meropenem and vancomycin on 12/11/ WBC increased. Patient now experiencing abdominal pain Continue antibiotics CT abdomen pelvis as below. Normal lipase. CVC removed 12/10 afebrile overnight and WBC improved 12/11: Remains afebrile and WBC count improved 12/12: T-max of 100.1?, WBC increased to 21.3 Patient has been afebrile, WBC trending down, will continue to monitor 12/14: Remains afebrile of white count trending down, continue to monitor (3) Abdominal pain: Code(s): R10.9 - Unspecified abdominal pain Status: Acute Assessment and Plan: PEG tube placed / tube feeds were resumed and advanced to 40 mL yesterday Overnight patient started complaining of abdominal pain. Tube feeds were held and GI was notified. KUB was done On my review KUB showed gas-filled stomach. Tolerating tube feeds CT scan Interval PEG tube insertion without evidence of extravasation of injected contrast material. Lipase normal Symptoms improved now and patient denies any pain. Tube feeds were started yesterday at a low rate currently on hold for cardiac catheterization 12/11: Increase tube feeds to wall (4) Acute kidney injury superimposed on CKD: Code(s): N17.9 - Acute kidney failure, unspecified; N18.9 - Chronic kidney disease, unspecified Status: Acute Assessment and Plan: Patient has history of chronic kidney disease likely secondary to diabetes and hypertension and now presented with much elevated creatinine which is likely multifactorial and secondary to sep
[2023-12-15 12:56] LABS: Glucose Point of Care 297 mg/dl (65-105)
[2023-12-15] MEDS: ALPRAZolam (*CRX) 0.5 MG TABLET FEED TUBE (14:42)
--- NOTE | 2023-12-15 14:44 | PM.IMPN ---
Progress Note: A&P Assessment and Plan (1) Acute hypoxic respiratory failure: Code(s): J96.01 - Acute respiratory failure with hypoxia Status: Acute Assessment and Plan: Acute hypoxic respiratory failure likely secondary to combination of pneumonia and pulmonary edema, ? ARDS 12/07/2023: status post tracheostomy. Procedure was complicated. Please refer to ENT op note. A size 6 trachea was able to be placed with a flap she has size 6 proximal XLT tracheostomy on 40 % FiO2 and peep of 10 -currently dialysis on hold, discussed with Nephrology, -patient diuresed with Bumex 1.5 mg IV x1 on 12/12, 12/13, 12/14. -Continue bronchodilators -off all sedation -off all antibiotics 12/02 CT scan of the chest abdomen and pelvis, since patient has had fevers and elevated WBC count IMPRESSION: 1. Multifocal consolidation in the lungs, consistent with pneumonia. 2: Mediastinal lymphadenopathy, likely reactive. 12/02: CT scan of the brain in sinus without contrast IMPRESSION: 1. No acute intracranial abnormality. No evidence for significant sinus disease. 12/04 chest CTA Limited evaluation of subsegmental arteries. No CT evidence of acute central or segmental pulmonary embolus. Unchanged findings consistent with multifocal pneumonia. Minimal lower tracheal secretions. Mediastinal and bilateral hilar lymphadenopathy. (2) Sepsis: Code(s): A41.9 - Sepsis, unspecified organism Status: Acute Assessment and Plan: CT scan done on presentation showed patchy airspace opacities throughout the lungs consistent with pneumonia or pulmonary edema 11/23: Blood, sputum and urine cultures are negative -status post cefepime and azithromycin Nasal MRSA was negative hence vancomycin discontinued in light of worsening renal function -11/29: Patient has been febrile of life with a T-max of 101.1, WBC count is still at 27.4 -11/29: Preliminary blood cultures are negative x2 -11/29: Urine cultures negative -11/29: Sputum cultures growing yeast 12/01; T-max 101.2?, negative venous Dopplers, may have to do a CT scan of chest abdomen and pelvis 12/02: T-max 100.8?, WBC count rising to 29.9, CT scan of the chest showed bilateral multifocal consolidation especially bilateral lower lobes, -completed 10 days of meropenem and vancomycin on 12/11 2/ WBC increased. Patient now experiencing abdominal pain Continue antibiotics CT abdomen pelvis as below. Normal lipase. CVC removed / afebrile overnight and WBC improved 12/11: Remains afebrile and WBC count improved 12/12: T-max of 100.1?, WBC increased to 21.3 Patient has been afebrile, WBC trending down, will continue to monitor 12/14: Remains afebrile of white count trending down, continue to monitor (3) Abdominal pain: Code(s): R10.9 - Unspecified abdominal pain Status: Acute Assessment and Plan: PEG tube placed 2/ tube feeds were resumed and advanced to 40 mL yesterday Overnight patient started complaining of abdominal pain. Tube feeds were held and GI was notified. KUB was done On my review KUB showed gas-filled stomach. Tolerating tube feeds CT scan Interval PEG tube insertion without evidence of extravasation of injected contrast material. Lipase normal Symptoms improved now and patient denies any pain. Tube feeds were started yesterday at a low rate currently on hold for cardiac catheterization 12/11: Increase tube feeds to goal (4) Acute kidney injury superimposed on CKD: Code(s): N17.9 - Acute kidney failure, unspecified; N18.9 - Chronic kidney disease, unspecified Status: Acute Assessment and Plan: Patient has history of chronic kidney disease likely secondary to diabetes and hypertension and now presented with much elevated creatinine which is likely multifactorial and secondary to sepsis, hypoxia and cardiac arrest. She also received IV contrast for her CTA although that is probably not responsible for her JOHN PAUL -She
[2023-12-15 16:21] LABS: Glucose Point of Care 268 mg/dl (65-105)
[2023-12-15 21:12] LABS: Glucose Point of Care 295 mg/dl (65-105)
[2023-12-16] VITALS (26 sets, daily range): BP systolic 127–151; BP diastolic 55–81; PULSE 81–90; RESP 15–26; TEMP 37.2–37.8; O2SAT 92–97
[2023-12-16] MEDS: INSULIN ASPART (*BKC) 100 UNITS/ML SUB-Q ×6 (00:34→21:13)
[2023-12-16 00:50] LABS: Glucose Point of Care 391 mg/dl (65-105)
[2023-12-16] MEDS: ALBUTEROL SULFATE NEB 2.5 MG/3 ML INH 5 MG INHALATION ×4 (02:20→19:53)
[2023-12-16] MEDS: IPRATROPIUM BR 0.02% INH SOLN 0.5 MG/2.5 ML VIAL INHALATION ×4 (02:21→19:53)
[2023-12-16 03:40] LABS: Glucose Point of Care 265 mg/dl (65-105)
[2023-12-16] MEDS: CENTRAL LINE FLUSH 10 ML IV PUSH ×3 (06:04→21:18)
[2023-12-16 06:10] LABS: Basophils Absolute Auto 0.1 K/mm3 (0.0-0.1); Basophils Percent Auto 0.9 % (0.2-1.2); Eosinophils Absolute Auto 0.3 K/mm3 (0-0.3); Eosinophils Percent Auto 2.2 % (0-4.4); Hematocrit 27.8 % (37.0-47.0); Hemoglobin 8.2 g/dL (12.0-15.0); Immature Granulocyte Absolute 0.45 K/mm3 (0.00-0.031); Immature Granulocyte Percent A 2.9 % (0-0.5); Lymphocytes Absolute Auto 1.75 K/mm3 (0.9-3.2); Lymphocytes Percent Auto 11.5 % (18.3-44.2); Mean Corpuscular HGB Conc 29.5 g/dl (32-36); Mean Corpuscular Hemoglobin 26.5 pg (26-34); Mean Corpuscular Volume 89.7 fl (80-100); Mean Platelet Volume 9.2 fl (7.4-10.4); Monocytes Absolute Auto 1.3 K/mm3 (0.1-0.6); Monocytes Percent Auto 8.5 % (2.6-8.5); Neutrophils Absolute Auto 11.3 K/mm3 (1.3-6.7); Platelet Count Result 540 k/mm3 (150-375); Red Cell Distribution Width 15.9 % (11.5-14.5); White Blood Count 15.3 K/mm3 (4.5-10.0)
[2023-12-16 06:26] LABS: Alanine Aminotransferase 27 U/L (6-35); Albumin Level 2.9 g/dL (3.5-5.1); Alkaline Phosphatase 167 U/L (38-126); Anion Gap 6 mmol/L (8-16); Aspartate Amino Transferase 41 U/L (14-36); Bilirubin,Total 0.4 mg/dL (0.2-1.3); Blood Urea Nitrogen 53 mg/dL (7-17); Carbon Dioxide 31 mmol/L (22-30); Chloride 102 mmol/L (98-107); Estimated CRCL calculation 52 ml/min; Estimated Glomerular Filt Rate 41; Glucose 201 mg/dL (65-110); Magnesium 1.4 mg/dL (1.6-2.3); Phosphorus 3.7 mg/dL (2.5-4.5); Potassium 3.6 mmol/L (3.4-5.0); Sodium 139 mmol/L (137-145)
[2023-12-16] MEDS: PANTOPRAZOLE SODIUM IV 40 MG VIAL IV PUSH ×2 (08:42→21:17)
[2023-12-16] MEDS: carvediloL 25 MG TABLET PO ×2 (08:43→21:17)
[2023-12-16] MEDS: amLODIPine BESYLATE 5 MG TABLET 10 MG PO (08:43)
[2023-12-16] MEDS: ASPIRIN 81 MG CHEWABLE TABLET PO (08:43)
[2023-12-16] MEDS: ROSUVASTATIN 10 MG TABLET 20 MG PO (08:44)
[2023-12-16] MEDS: CLOPIDOGREL BISULFATE 75 MG TABLET PO (08:44)
[2023-12-16 08:46] LABS: Glucose Point of Care 323 mg/dl (65-105)
[2023-12-16] MEDS: MINERAL OIL/WHITE PETROLATUM OINTMENT 1 APPLIC EACH EYE ×2 (08:48→21:17)
[2023-12-16] MEDS: INSULIN GLARGINE (*BKC) 100 UNITS/ML 35 UNITS SUB-Q ×2 (08:50→21:16)
[2023-12-16] MEDS: ACETAMINOPHEN ELIXIR 325 MG/10.15 ML UDC 650 MG PO ×2 (08:54→18:44)
[2023-12-16] MEDS: MAGNESIUM SULF 2 GM/WATER 50ML 2 GM/50 ML BAG IVPB (09:24)
--- NOTE | 2023-12-16 11:14 | WPDINTPN ---
Progress Note: A&P Assessment and Plan (1) Acute hypoxic respiratory failure: Code(s): J96.01 - Acute respiratory failure with hypoxia Status: Acute Assessment and Plan: Acute hypoxic respiratory failure likely secondary to combination of pneumonia and pulmonary edema, ? ARDS 12/07/2023: status post tracheostomy. Procedure was complicated. Please refer to ENT op note. A size 6 trachea was able to be placed with a flap she has size 6 proximal XLT tracheostomy -chest x-ray this morning: Mild central pulmonary edema pattern. Correlate clinically for infection -currently on 40 % FiO2 and peep of 8 -currently dialysis on hold as patient has had good urine output in response to diuretics and or her own, discussed with Nephrology, -patient diuresed with Bumex 1.5 mg IV x1 on 12/12, 12/13, 12/14. -Continue bronchodilators -off all sedation -off all antibiotics 12/02 CT scan of the chest abdomen and pelvis, since patient has had fevers and elevated WBC count IMPRESSION: 1. Multifocal consolidation in the lungs, consistent with pneumonia. 2: Mediastinal lymphadenopathy, likely reactive. 12/02: CT scan of the brain in sinus without contrast IMPRESSION: 1. No acute intracranial abnormality. No evidence for significant sinus disease. 12/04 chest CTA Limited evaluation of subsegmental arteries. No CT evidence of acute central or segmental pulmonary embolus. Unchanged findings consistent with multifocal pneumonia. Minimal lower tracheal secretions. Mediastinal and bilateral hilar lymphadenopathy. (2) Sepsis: Code(s): A41.9 - Sepsis, unspecified organism Status: Acute Assessment and Plan: CT scan done on presentation showed patchy airspace opacities throughout the lungs consistent with pneumonia or pulmonary edema 11/23: Blood, sputum and urine cultures are negative -status post cefepime and azithromycin Nasal MRSA was negative hence vancomycin discontinued in light of worsening renal function -11/29: Patient has been febrile of life with a T-max of 101.1, WBC count is still at 27.4 -11/29: Preliminary blood cultures are negative x2 -11/29: Urine cultures negative -11/29: Sputum cultures growing yeast 12/01; T-max 101.2?, negative venous Dopplers, may have to do a CT scan of chest abdomen and pelvis 12/02: T-max 100.8?, WBC count rising to 29.9, CT scan of the chest showed bilateral multifocal consolidation especially bilateral lower lobes, -completed 10 days of meropenem and vancomycin on 12/11/ WBC increased. Patient now experiencing abdominal pain CT abdomen pelvis as below. Normal lipase. CVC removed 12/10 afebrile overnight and WBC improved 12/11: Remains afebrile and WBC count improved 12/12: T-max of 100.1?, WBC increased to 21.3 Patient has been afebrile, WBC trending down, will continue to monitor 12/14: Remains afebrile of white count trending down, continue to monitor OFF ALL ANTIBIOTICS (3) Abdominal pain: Code(s): R10.9 - Unspecified abdominal pain Status: Acute Assessment and Plan: PEG tube placed / tube feeds were resumed and advanced to 40 mL yesterday Overnight patient started complaining of abdominal pain. Tube feeds were held and GI was notified. KUB was done On my review KUB showed gas-filled stomach. Tolerating tube feeds CT scan Interval PEG tube insertion without evidence of extravasation of injected contrast material. Lipase normal Symptoms improved now and patient denies any pain. Tube feeds were started yesterday at a low rate currently on hold for cardiac catheterization 12/11: Increase tube feeds to wall (4) Acute kidney injury superimposed on CKD: Code(s): N17.9 - Acute kidney failure, unspecified; N18.9 - Chronic kidney disease, unspecified Status: Acute Assessment and Plan: Patient has history of chronic kidney disease likely secondary to diabetes and hypertension and now presented with much elevated creatini
--- NOTE | 2023-12-16 11:16 | PM.PNNEP ---
Progress Note: A&P Assessment and Plan (1) JOHN PAUL (acute kidney injury): Code(s): N17.9 - Acute kidney failure, unspecified Status: Acute Assessment and Plan: improvement noted (if not back to baseline) ATN due to multifactorial etiology: cardiac arrest hemodynamic instability sepsis/infection hypoxia contrast exposure (CTA of chest on admission) pre-renal factors diuretic therapy prior to admission evaluation to date: CT scan of abdomen without obstruction renal ultrasound left renal scarring and volume loss CPK normal urine electrolytes prerenal urine eosinophils negative moderate proteinuria last HD treatment on 12/10/23 with dialysis currently on hold increased urine output noted in the last 24 - 48 hours s/p bumex 1.5mg IV x 1 on 12/12, 12/13, and 12/14/23 continue use PRN continue to follow trend of labs and UOP (2) Stage 3b chronic kidney disease: Code(s): N18.32 - Chronic kidney disease, stage 3b Status: Chronic Assessment and Plan: evidence of renal insufficiency/chronic kidney disease 2021 creatinine seems to run around 1.3 - 1.7mg/dl presumably due to hypertension, diabetes, and vascular disease (3) Sepsis: Code(s): A41.9 - Sepsis, unspecified organism Status: Acute Assessment and Plan: suspect secondary to pneumonia based on imaging testing to date white blood cell count elevated (but better) completed course of antibiotics off vasopressor therapy (4) Acute hypoxic respiratory failure: Code(s): J96.01 - Acute respiratory failure with hypoxia Status: Acute Assessment and Plan: felt to be secondary to combination of pneumonia and pulmonary edema in conjunction with cardiac arrest fluid removal with dialysis initially - now tolerating diuresis/IV diuretics as needed complete course of antibiotics for pneumonia s/p tracheostomy and G-tube placement (on 12/07/23) continue ventilator support with weaning as tolerated (5) Cardiac arrest: Code(s): I46.9 - Cardiac arrest, cause unspecified Status: Acute Assessment and Plan: etiology not entirely clear: pneumonia? CHF? hyperkalemia? primary cardiac event? trend of troponins noted (elevation could just be from cardiac arrest + CPR) Echo shows limited views but seems grossly normal s/p cardiac catheterization with results noted (see #6) (6) CAD (coronary artery disease): Code(s): I25.10 - Atherosclerotic heart disease of [place] coronary artery without angina pectoris Status: Acute Assessment and Plan: s/p cardiac cath (on 12/10/23) with findings noted: severe 2 vessel CAD with high-grade lesions in the mid LAD and proximal RCA successful revascularization of both lesions using drug eluting stents EF ~ 45% continue onging medical management (7) Diabetes: Code(s): E11.9 - Type 2 diabetes mellitus without complications Status: Chronic Assessment and Plan: follow accu-cheks glycemic control per lieutenant firefighter/hospitalists Will continue to follow. Subjective Date/time seen: 12/16/23 11:16 Interval history: Follow-up for acute kidney injury/acute renal failure on chronic kidney disease. Continues to make slow and steady progress; remains on mechanical ventilation via tracheostomy; mentation stable if not improving as she is awake and alert, following commands, and responsive to questions by nodding her head; good urine output noted without diuretic therapy with ongoing improvement in renal function. Exam Narrative: General: large WD/WN female on mechanical ventilation via tracheostomy Heart: normal S1 and S2; no rub Lungs: coarse upper airway breath sounds; decreased at bases Abdomen: soft, nontender, nondistended, positive bowel sounds Extremities: trace edema noted Skin: warm and intact Objective Data Vital Signs Vital Signs: Vital Sig
--- NOTE | 2023-12-16 11:16 | P.PNNP_ITS ---
Progress Note: A&P Assessment and Plan (1) JOHN PAUL (acute kidney injury): Code(s): N17.9 - Acute kidney failure, unspecified Status: Acute Assessment and Plan: * improvement noted (if not back to baseline) * ATN due to multifactorial etiology: * cardiac arrest * hemodynamic instability * sepsis/infection * hypoxia * contrast exposure (CTA of chest on admission) * pre-renal factors * diuretic therapy prior to admission * evaluation to date: * CT scan of abdomen without obstruction * renal ultrasound left renal scarring and volume loss * CPK normal * urine electrolytes prerenal * urine eosinophils negative * moderate proteinuria * last HD treatment on 12/10/23 with dialysis currently on hold * increased urine output noted in the last 24 - 48 hours * s/p bumex 1.5mg IV x 1 on 12/12, 12/13, and 12/14/23 * continue use PRN * continue to follow trend of labs and UOP (2) Stage 3b chronic kidney disease: Code(s): N18.32 - Chronic kidney disease, stage 3b Status: Chronic Assessment and Plan: * evidence of renal insufficiency/chronic kidney disease 2021 * creatinine seems to run around 1.3 - 1.7mg/dl * presumably due to hypertension, diabetes, and vascular disease (3) Sepsis: Code(s): A41.9 - Sepsis, unspecified organism Status: Acute Assessment and Plan: * suspect secondary to pneumonia based on imaging testing to date * white blood cell count elevated (but better) * completed course of antibiotics * off vasopressor therapy (4) Acute hypoxic respiratory failure: Code(s): J96.01 - Acute respiratory failure with hypoxia Status: Acute Assessment and Plan: * felt to be secondary to combination of pneumonia and pulmonary edema in conjunction with cardiac arrest * fluid removal with dialysis initially - now tolerating diuresis/IV diuretics as needed * complete course of antibiotics for pneumonia * s/p tracheostomy and G-tube placement (on 12/07/23) * continue ventilator support with weaning as tolerated (5) Cardiac arrest: Code(s): I46.9 - Cardiac arrest, cause unspecified Status: Acute Assessment and Plan: * etiology not entirely clear: * pneumonia? * CHF? * hyperkalemia? * primary cardiac event? * trend of troponins noted (elevation could just be from cardiac arrest + CPR) * Echo shows limited views but seems grossly normal * s/p cardiac catheterization with results noted (see #6) (6) CAD (coronary artery disease): Code(s): I25.10 - Atherosclerotic heart disease of [place] coronary artery without angina pectoris Status: Acute Assessment and Plan: * s/p cardiac cath (on 12/10/23) with findings noted: * severe 2 vessel CAD with high-grade lesions in the mid LAD and proximal RCA * successful revascularization of both lesions using drug eluting stents * EF ~ 45% * continue onging medical management (7) Diabetes: Code(s): E11.9 - Type 2 diabetes mellitus without complications Status: Chronic Assessment and Plan: * follow accu-cheks * glycemic control per nicu rn/hospitalists Will continue to follow. Subjective Date/time seen: 12/16/23 11:16 Interval history: Follow-up for acute kidney injury/acute renal failure on chronic kidney disease. Continues to make slow and steady progress; remains on mechanical ventilation via tracheostomy; mentation stable if not improving as she is awake and alert, following comma
[2023-12-16 12:31] LABS: Glucose Point of Care 413 mg/dl (65-105)
[2023-12-16] MEDS: INSULIN ASPART (*BKC) 100 UNITS/ML 10 UNITS SUB-Q (12:42)
--- NOTE | 2023-12-16 13:05 | PCPTNOTE ---
13:00 attempted to wake pt, pt would open eyes but struggled to keep them up. Minimal response from and she could not participate. Will attempt later this afternoon.
[2023-12-16 16:37] LABS: Glucose Point of Care 322 mg/dl (65-105)
[2023-12-16] MEDS: ONDANSETRON INJ 4 MG/2 ML VIAL IV PUSH (16:37)
[2023-12-16] MEDS: ARTIFICIAL TEARS OPHTH SOLN 15 ML BOTTLE 1 DROP EACH EYE (18:27)
[2023-12-16 21:50] LABS: Glucose Point of Care 368 mg/dl (65-105)
[2023-12-16] MEDS: MORPHINE SULFATE (*CRX) 2 MG/ML INJ IV PUSH (22:33)
[2023-12-17] VITALS (28 sets, daily range): BP systolic 132–170; BP diastolic 59–73; PULSE 78–92; RESP 17–26; TEMP 36.8–37.8; O2SAT 90–98
[2023-12-17] MEDS: ALPRAZolam (*CRX) 0.5 MG TABLET FEED TUBE ×4 (00:21→23:21)
[2023-12-17] MEDS: INSULIN ASPART (*BKC) 100 UNITS/ML SUB-Q ×6 (00:25→23:17)
[2023-12-17 00:29] LABS: Glucose Point of Care 287 mg/dl (65-105)
[2023-12-17] MEDS: ALBUTEROL SULFATE NEB 2.5 MG/3 ML INH 5 MG INHALATION ×4 (01:45→20:41)
[2023-12-17] MEDS: IPRATROPIUM BR 0.02% INH SOLN 0.5 MG/2.5 ML VIAL INHALATION ×4 (01:45→20:41)
[2023-12-17] MEDS: CENTRAL LINE FLUSH 10 ML IV PUSH ×3 (04:18→20:54)
[2023-12-17 04:23] LABS: Glucose Point of Care 221 mg/dl (65-105)
[2023-12-17] MEDS: ACETAMINOPHEN ELIXIR 325 MG/10.15 ML UDC 650 MG PO ×3 (05:18→23:17)
[2023-12-17 05:36] LABS: Alanine Aminotransferase 23 U/L (6-35); Albumin Level 2.3 g/dL (3.5-5.1); Alkaline Phosphatase 132 U/L (38-126); Anion Gap 4 mmol/L (8-16); Aspartate Amino Transferase 30 U/L (14-36); Bilirubin,Total 0.3 mg/dL (0.2-1.3); Blood Urea Nitrogen 46 mg/dL (7-17); Calcium 7.6 mg/dL (8.4-10.2); Carbon Dioxide 26 mmol/L (22-30); Chloride 104 mmol/L (98-107); Estimated CRCL calculation 60 ml/min; Estimated Glomerular Filt Rate 49; Glucose 189 mg/dL (65-110); Magnesium 1.5 mg/dL (1.6-2.3); Phosphorus 3.3 mg/dL (2.5-4.5); Sodium 134 mmol/L (137-145)
[2023-12-17 08:29] LABS: Glucose Point of Care 199 mg/dl (65-105)
[2023-12-17] MEDS: ROSUVASTATIN 10 MG TABLET 20 MG PO (09:58)
[2023-12-17] MEDS: CLOPIDOGREL BISULFATE 75 MG TABLET PO (09:58)
[2023-12-17] MEDS: ASPIRIN 81 MG CHEWABLE TABLET PO (09:58)
[2023-12-17] MEDS: POTASSIUM CHLORIDE 20 MEQ PACKET (FOR LIQUID) FEED TUBE (09:59)
[2023-12-17] MEDS: PANTOPRAZOLE SODIUM IV 40 MG VIAL IV PUSH ×2 (09:59→20:32)
[2023-12-17] MEDS: amLODIPine BESYLATE 5 MG TABLET 10 MG PO (09:59)
[2023-12-17] MEDS: carvediloL 25 MG TABLET PO ×2 (09:59→20:31)
[2023-12-17] MEDS: POTASSIUM CHLORIDE 20 MEQ PACKET (FOR LIQUID) 40 MEQ FEED TUBE (09:59)
[2023-12-17] MEDS: INSULIN GLARGINE (*BKC) 100 UNITS/ML 35 UNITS SUB-Q ×2 (10:00→20:46)
[2023-12-17] MEDS: MAGNESIUM SULF 2 GM/WATER 50ML 2 GM/50 ML BAG IVPB (10:15)
[2023-12-17] MEDS: ARTIFICIAL TEARS OPHTH SOLN 15 ML BOTTLE 1 DROP EACH EYE (10:22)
--- NOTE | 2023-12-17 11:20 | PM.PNNEP ---
Progress Note: A&P Assessment and Plan (1) JOHN PAUL (acute kidney injury): Code(s): N17.9 - Acute kidney failure, unspecified Status: Acute Assessment and Plan: improvement noted (if not back to baseline) ATN due to multifactorial etiology: cardiac arrest hemodynamic instability sepsis/infection hypoxia contrast exposure (CTA of chest on admission) pre-renal factors diuretic therapy prior to admission evaluation to date: CT scan of abdomen without obstruction renal ultrasound left renal scarring and volume loss CPK normal urine electrolytes prerenal urine eosinophils negative moderate proteinuria last HD treatment on 12/10/23 -- dialysis currently on hold not opposed to removal of temporary HD catheter increased urine output noted at this time s/p bumex 1.5mg IV x 1 on 12/12, 12/13, and 12/14/23 continue IV diuretics PRN continue to follow trend of labs and UOP (2) Stage 3b chronic kidney disease: Code(s): N18.32 - Chronic kidney disease, stage 3b Status: Chronic Assessment and Plan: evidence of renal insufficiency/chronic kidney disease 2021 creatinine seems to run around 1.3 - 1.7mg/dl presumably due to hypertension, diabetes, and vascular disease (3) Sepsis: Code(s): A41.9 - Sepsis, unspecified organism Status: Acute Assessment and Plan: suspect secondary to pneumonia based on imaging testing to date white blood cell count elevated (but better) completed course of antibiotics off vasopressor therapy (4) Acute hypoxic respiratory failure: Code(s): J96.01 - Acute respiratory failure with hypoxia Status: Acute Assessment and Plan: felt to be secondary to combination of pneumonia and pulmonary edema in conjunction with cardiac arrest fluid removal with dialysis initially - now tolerating diuresis/IV diuretics as needed complete course of antibiotics for pneumonia s/p tracheostomy and G-tube placement (on 12/07/23) continue ventilator support with weaning as tolerated (5) Cardiac arrest: Code(s): I46.9 - Cardiac arrest, cause unspecified Status: Acute Assessment and Plan: etiology not entirely clear: pneumonia? CHF? hyperkalemia? primary cardiac event? trend of troponins noted (elevation could just be from cardiac arrest + CPR) Echo shows limited views but seems grossly normal s/p cardiac catheterization with results noted (see #6) (6) CAD (coronary artery disease): Code(s): I25.10 - Atherosclerotic heart disease of [place] coronary artery without angina pectoris Status: Acute Assessment and Plan: s/p cardiac cath (on 12/10/23) with findings noted: severe 2 vessel CAD with high-grade lesions in the mid LAD and proximal RCA successful revascularization of both lesions using drug eluting stents EF ~ 45% continue onging medical management (7) Diabetes: Code(s): E11.9 - Type 2 diabetes mellitus without complications Status: Chronic Assessment and Plan: follow accu-cheks glycemic control per bag bailer/hospitalists Not much else to add...will continue to follow intermittently Subjective Date/time seen: 12/17/23 11:20 Interval history: Follow-up for acute kidney injury/acute renal failure on chronic kidney disease. Renal function continues to improve in association with good urine output; remains on mechanical ventilation via tracheostomy; hemodynamically stable; mentation continues to improve as well -- awake and alert, follows commands, nods and mouths words to questions. Exam Narrative: General: large WD/WN female on mechanical ventilation via tracheostomy Heart: normal S1 and S2; no rub Lungs: coarse upper airway breath sounds; decreased at bases Abdomen: soft, nontender, nondistended, positive bowel sounds Extremities: trace edema noted Skin: no rash or nodules Objective Data Vital Sig
--- NOTE | 2023-12-17 11:20 | P.PNNP_ITS ---
Progress Note: A&P Assessment and Plan (1) JOHN PAUL (acute kidney injury): Code(s): N17.9 - Acute kidney failure, unspecified Status: Acute Assessment and Plan: * improvement noted (if not back to baseline) * ATN due to multifactorial etiology: * cardiac arrest * hemodynamic instability * sepsis/infection * hypoxia * contrast exposure (CTA of chest on admission) * pre-renal factors * diuretic therapy prior to admission * evaluation to date: * CT scan of abdomen without obstruction * renal ultrasound left renal scarring and volume loss * CPK normal * urine electrolytes prerenal * urine eosinophils negative * moderate proteinuria * last HD treatment on 12/10/23 -- dialysis currently on hold * not opposed to removal of temporary HD catheter * increased urine output noted at this time * s/p bumex 1.5mg IV x 1 on 12/12, 12/13, and 12/14/23 * continue IV diuretics PRN * continue to follow trend of labs and UOP (2) Stage 3b chronic kidney disease: Code(s): N18.32 - Chronic kidney disease, stage 3b Status: Chronic Assessment and Plan: * evidence of renal insufficiency/chronic kidney disease 2021 * creatinine seems to run around 1.3 - 1.7mg/dl * presumably due to hypertension, diabetes, and vascular disease (3) Sepsis: Code(s): A41.9 - Sepsis, unspecified organism Status: Acute Assessment and Plan: * suspect secondary to pneumonia based on imaging testing to date * white blood cell count elevated (but better) * completed course of antibiotics * off vasopressor therapy (4) Acute hypoxic respiratory failure: Code(s): J96.01 - Acute respiratory failure with hypoxia Status: Acute Assessment and Plan: * felt to be secondary to combination of pneumonia and pulmonary edema in conjunction with cardiac arrest * fluid removal with dialysis initially - now tolerating diuresis/IV diuretics as needed * complete course of antibiotics for pneumonia * s/p tracheostomy and G-tube placement (on 12/07/23) * continue ventilator support with weaning as tolerated (5) Cardiac arrest: Code(s): I46.9 - Cardiac arrest, cause unspecified Status: Acute Assessment and Plan: * etiology not entirely clear: * pneumonia? * CHF? * hyperkalemia? * primary cardiac event? * trend of troponins noted (elevation could just be from cardiac arrest + CPR) * Echo shows limited views but seems grossly normal * s/p cardiac catheterization with results noted (see #6) (6) CAD (coronary artery disease): Code(s): I25.10 - Atherosclerotic heart disease of [place] coronary artery without angina pectoris Status: Acute Assessment and Plan: * s/p cardiac cath (on 12/10/23) with findings noted: * severe 2 vessel CAD with high-grade lesions in the mid LAD and proximal RCA * successful revascularization of both lesions using drug eluting stents * EF ~ 45% * continue onging medical management (7) Diabetes: Code(s): E11.9 - Type 2 diabetes mellitus without complications Status: Chronic Assessment and Plan: * follow accu-cheks * glycemic control per margin trimmer/hospitalists Not much else to add...will continue to follow intermittently Subjective Date/time seen: 12/17/23 11:20 Interval history: Follow-up for acute kidney injury/acute renal failure on chronic kidney disease. Renal function continues to improve in association with good urine output; remains on m
[2023-12-17 12:03] LABS: Glucose Point of Care 307 mg/dl (65-105)
--- NOTE | 2023-12-17 12:40 | PCFNICU ---
ICU Rounding Note: Pt current nutrition is Nepro @ 40 ml/h with 30 ml water flushes q 4 hours. Prosource BID for additional 160 kcal and 40 g protein Nutrition recommendation: Continue current tube feeding orders and flushes. Agree with orders Last recorded weight is 99 kg. Bowel Motility: Semi liquid stool draining per fecal management system Labs Reviewed: Alb 2.3, Na 134, K+ 3.0, BUN 46, Cre 1.2, Glu 199 Meds Noted: Novolog, Lantus, Zofran, protonix, coreg Skin: No pressure injuries Additional Notes: Tolerating tube feeds, Nepro @ 40 ml/h with 30 ml flushes. 1744 kcal (meet 98% EER @ 15 kcal/kg); 112 g protein (78% @ 1.2 g/kg), 640 ml free water. 30 ml flushes q 4 hours. Pt may be discharging to [facility] soon Following daily in ICU rounds. Will monitor weight, labs, skin, meds, tube feeding tolerance every Sunday and Sunday. .
[2023-12-17] MEDS: MORPHINE SULFATE (*CRX) 2 MG/ML INJ IV PUSH ×2 (12:55→20:39)
--- NOTE | 2023-12-17 13:06 | WPDINTPN ---
Progress Note: A&P Assessment and Plan (1) Acute hypoxic respiratory failure: Code(s): J96.01 - Acute respiratory failure with hypoxia Status: Acute Assessment and Plan: Acute hypoxic respiratory failure likely secondary to combination of pneumonia and pulmonary edema, ? ARDS 12/07/2023: status post tracheostomy. Procedure was complicated. Please refer to ENT op note. A size 6 trachea was able to be placed with a flap she has size 6 proximal XLT tracheostomy -12/16: chest x-ray : Mild central pulmonary edema pattern. Correlate clinically for infection -currently on 50 % FiO2 and peep of 8, wean FiO2 to maintain O2 sats greater than 92% -currently dialysis on hold as patient has had good urine output in response to diuretics and or her own, discussed with Nephrology, -patient diuresed with Bumex 1.5 mg IV x1 on 12/12, 12/13, 12/14. -patient has been diuresing on her own since 12/15 -Continue bronchodilators -off all sedation -off all antibiotics -off restraints 12/02 CT scan of the chest abdomen and pelvis, since patient has had fevers and elevated WBC count IMPRESSION: 1. Multifocal consolidation in the lungs, consistent with pneumonia. 2: Mediastinal lymphadenopathy, likely reactive. 12/02: CT scan of the brain in sinus without contrast IMPRESSION: 1. No acute intracranial abnormality. No evidence for significant sinus disease. 12/04 chest CTA Limited evaluation of subsegmental arteries. No CT evidence of acute central or segmental pulmonary embolus. Unchanged findings consistent with multifocal pneumonia. Minimal lower tracheal secretions. Mediastinal and bilateral hilar lymphadenopathy. (2) Sepsis: Code(s): A41.9 - Sepsis, unspecified organism Status: Acute Assessment and Plan: RESOLVED CT scan done on presentation showed patchy airspace opacities throughout the lungs consistent with pneumonia or pulmonary edema 11/23: Blood, sputum and urine cultures are negative -status post cefepime and azithromycin Nasal MRSA was negative hence vancomycin discontinued in light of worsening renal function -11/29: Patient has been febrile of life with a T-max of 101.1, WBC count is still at 27.4 -11/29: Preliminary blood cultures are negative x2 -11/29: Urine cultures negative -11/29: Sputum cultures growing yeast 12/01; T-max 101.2?, negative venous Dopplers, may have to do a CT scan of chest abdomen and pelvis 12/02: T-max 100.8?, WBC count rising to 29.9, CT scan of the chest showed bilateral multifocal consolidation especially bilateral lower lobes, -completed 10 days of meropenem and vancomycin on 12/11/ WBC increased. Patient now experiencing abdominal pain CT abdomen pelvis as below. Normal lipase. CVC removed / afebrile overnight and WBC improved 12/11: Remains afebrile and WBC count improved 12/12: T-max of 100.1?, WBC increased to 21.3 Patient has been afebrile, WBC trending down, will continue to monitor 12/14: Remains afebrile of white count trending down, continue to monitor OFF ALL ANTIBIOTICS (3) Abdominal pain: Code(s): R10.9 - Unspecified abdominal pain Status: Acute Assessment and Plan: RESOLVED PEG tube placed 12/07 tube feeds were resumed and advanced to 40 mL yesterday Overnight patient started complaining of abdominal pain. Tube feeds were held and GI was notified. KUB was done On my review KUB showed gas-filled stomach. Tolerating tube feeds CT scan Interval PEG tube insertion without evidence of extravasation of injected contrast material. Lipase normal Symptoms improved now and patient denies any pain. Tube feeds were started yesterday at a low rate currently on hold for cardiac catheterization 12/11: Increase tube feeds to wall (4) Acute kidney injury superimposed on CKD: Code(s): N17.9 - Acute kidney failure, unspecified; N18.9 - Chronic kidney disease, unspecified Status: Acute Assessment and Plan: Patient
--- NOTE | 2023-12-17 13:15 | P.PNIM_ITS ---
Progress Note: A&P Assessment and Plan (1) Acute hypoxic respiratory failure: Code(s): J96.01 - Acute respiratory failure with hypoxia Status: Acute Assessment and Plan: Acute hypoxic respiratory failure likely secondary to combination of pneumonia and pulmonary edema, ? ARDS 12/07/2023: status post tracheostomy. Procedure was complicated. Please refer to ENT op note. A size 6 trachea was able to be placed with a flap she has size 6 proximal XLT tracheostomy on 40 % FiO2 and peep of 10 -currently dialysis on hold, discussed with Nephrology, -patient diuresed with Bumex 1.5 mg IV x1 on 12/12, 12/13, 12/14. -Continue bronchodilators -off all sedation -off all antibiotics 12/02 CT scan of the chest abdomen and pelvis, since patient has had fevers and elevated WBC count IMPRESSION: 1. Multifocal consolidation in the lungs, consistent with pneumonia. 2: Mediastinal lymphadenopathy, likely reactive. 12/02: CT scan of the brain in sinus without contrast IMPRESSION: 1. No acute intracranial abnormality. No evidence for significant sinus disease. 12/04 chest CTA Limited evaluation of subsegmental arteries. No CT evidence of acute central or segmental pulmonary embolus. Unchanged findings consistent with multifocal pneumonia. Minimal lower tracheal secretions. Mediastinal and bilateral hilar lymphadenopathy. (2) Sepsis: Code(s): A41.9 - Sepsis, unspecified organism Status: Acute Assessment and Plan: CT scan done on presentation showed patchy airspace opacities throughout the lungs consistent with pneumonia or pulmonary edema 11/23: Blood, sputum and urine cultures are negative -status post cefepime and azithromycin Nasal MRSA was negative hence vancomycin discontinued in light of worsening renal function -11/29: Patient has been febrile of life with a T-max of 101.1, WBC count is still at 27.4 -11/29: Preliminary blood cultures are negative x2 -11/29: Urine cultures negative -11/29: Sputum cultures growing yeast 12/01; T-max 101.2?, negative venous Dopplers, may have to do a CT scan of chest abdomen and pelvis 12/02: T-max 100.8?, WBC count rising to 29.9, CT scan of the chest showed bilateral multifocal consolidation especially bilateral lower lobes, -completed 10 days of meropenem and vancomycin on 12/11 2/ WBC increased. Patient now experiencing abdominal pain Continue antibiotics CT abdomen pelvis as below. Normal lipase. CVC removed / afebrile overnight and WBC improved 12/11: Remains afebrile and WBC count improved 12/12: T-max of 100.1?, WBC increased to 21.3 Patient has been afebrile, WBC trending down, will continue to monitor 12/14: Remains afebrile of white count trending down, continue to monitor Off all antibiotics (3) Abdominal pain: Code(s): R10.9 - Unspecified abdominal pain Status: Acute Assessment and Plan: PEG tube placed 2/ tube feeds were resumed and advanced to 40 mL yesterday Overnight patient started complaining of abdominal pain. Tube feeds were held and GI was notified. KUB was done On my review KUB showed gas-filled stomach. Tolerating tube feeds CT scan Interval PEG tube insertion without evidence of extravasation of injected cont rast material. Lipase normal Symptoms improved now and patient denies any pain. Tube feeds were started yesterday at a low rate currently on hold for cardiac catheterization 12/11: Increase tube feeds to goal (4) Acute kidney injury superimposed on CKD: Code(s): N17.9 - Acute kidney failure, unspecified; N18.9 - Chronic kidney disease, unspe
[2023-12-17 16:55] LABS: Glucose Point of Care 306 mg/dl (65-105)
[2023-12-17 19:39] LABS: Glucose Point of Care 328 mg/dl (65-105)
--- NOTE | 2023-12-17 20:27 | ECG_ITS ---
Measurements Intervals [place] Rate: 85 P: 34 CA: 150 QRS: 23 QRSD: 86 T: 119 QT: 365 QTc: 435 Interpretive Statements SINUS RHYTHM POSSIBLE ANTERIOR MYOCARDIAL INFARCTION [30 ms Q WAVE IN V3/V4, OR R < 0.2 mV IN V4], OF INDETERMINATE AGE COMPARED TO ECG 12/11/2023 09:31:03 NO SIGNIFICANT CHANGES Electronically Signed On 12-18-2023 14:58:31 [employer] 3RD SHIFT by Miranda Cota M.D.
[2023-12-17] MEDS: MINERAL OIL/WHITE PETROLATUM OINTMENT 1 APPLIC EACH EYE (20:46)
[2023-12-17 23:16] LABS: Glucose Point of Care 266 mg/dl (65-105)
[2023-12-18] VITALS (29 sets, daily range): BP systolic 134–159; BP diastolic 57–66; PULSE 74–86; RESP 17–25; TEMP 37.1–37.9; O2SAT 91–97
[2023-12-18] MEDS: ALBUTEROL SULFATE NEB 2.5 MG/3 ML INH 5 MG INHALATION ×4 (02:29→20:14)
[2023-12-18] MEDS: IPRATROPIUM BR 0.02% INH SOLN 0.5 MG/2.5 ML VIAL INHALATION ×4 (02:29→20:14)
[2023-12-18 04:11] LABS: Glucose Point of Care 213 mg/dl (65-105)
[2023-12-18] MEDS: INSULIN ASPART (*BKC) 100 UNITS/ML SUB-Q ×3 (04:32→11:57)
[2023-12-18] MEDS: MORPHINE SULFATE (*CRX) 2 MG/ML INJ IV PUSH ×3 (04:32→15:56)
[2023-12-18] MEDS: CENTRAL LINE FLUSH 10 ML IV PUSH (04:46)
[2023-12-18 05:48] LABS: Basophils Absolute Auto 0.2 K/mm3 (0.0-0.1); Basophils Percent Auto 1.1 % (0.2-1.2); Eosinophils Absolute Auto 0.8 K/mm3 (0-0.3); Eosinophils Percent Auto 4.7 % (0-4.4); Hematocrit 27.2 % (37.0-47.0); Hemoglobin 7.8 g/dL (12.0-15.0); Immature Granulocyte Percent A 1.2 % (0-0.5); Lymphocytes Absolute Auto 1.88 K/mm3 (0.9-3.2); Lymphocytes Percent Auto 11.4 % (18.3-44.2); Mean Corpuscular HGB Conc 28.7 g/dl (32-36); Mean Corpuscular Hemoglobin 26.3 pg (26-34); Mean Corpuscular Volume 91.6 fl (80-100); Mean Platelet Volume 9.8 fl (7.4-10.4); Monocytes Absolute Auto 1.2 K/mm3 (0.1-0.6); Monocytes Percent Auto 7.1 % (2.6-8.5); Neutrophils Absolute Auto 12.3 K/mm3 (1.3-6.7); Neutrophils Percent Auto 74.5 % (45.5-73.1); Nucleated Red Blood Cells Perc 0.1 % (0.0-0.2); Platelet Count Result 482 k/mm3 (150-375); Red Blood Count 2.97 M/mm3 (4.2-5.4); Red Cell Distribution Width 15.8 % (11.5-14.5); White Blood Count 16.5 K/mm3 (4.5-10.0)
[2023-12-18 06:02] LABS: Alanine Aminotransferase 26 U/L (6-35); Albumin Level 2.9 g/dL (3.5-5.1); Alkaline Phosphatase 156 U/L (38-126); Anion Gap 4 mmol/L (8-16); Aspartate Amino Transferase 39 U/L (14-36); Bilirubin,Total 0.4 mg/dL (0.2-1.3); Blood Urea Nitrogen 50 mg/dL (7-17); Calcium 9.3 mg/dL (8.4-10.2); Carbon Dioxide 30 mmol/L (22-30); Chloride 99 mmol/L (98-107); Estimated CRCL calculation 49 ml/min; Estimated Glomerular Filt Rate 38; Glucose 183 mg/dL (65-110); Magnesium 1.9 mg/dL (1.6-2.3); Phosphorus 3.9 mg/dL (2.5-4.5); Sodium 133 mmol/L (137-145)
[2023-12-18 06:51] LABS: Platelet Estimate Increased (Adequate)
[2023-12-18 06:52] LABS: Hypochromasia 2+ (NORMAL); Schistocytes Rare (NORMAL); Stomatocytes 1+ (NORMAL)
[2023-12-18] MEDS: ASPIRIN 81 MG CHEWABLE TABLET PO (08:42)
[2023-12-18] MEDS: ROSUVASTATIN 10 MG TABLET 20 MG PO (08:42)
[2023-12-18] MEDS: carvediloL 25 MG TABLET PO ×2 (08:42→19:54)
[2023-12-18] MEDS: amLODIPine BESYLATE 5 MG TABLET 10 MG PO (08:42)
[2023-12-18] MEDS: ENOXAPARIN 40 MG/0.4 ML SYRINGE SUB-Q (08:43)
[2023-12-18] MEDS: CLOPIDOGREL BISULFATE 75 MG TABLET PO (08:43)
[2023-12-18 08:50] LABS: Glucose Point of Care 227 mg/dl (65-105)
[2023-12-18] MEDS: INSULIN GLARGINE (*BKC) 100 UNITS/ML 35 UNITS SUB-Q ×2 (08:51→20:00)
--- NOTE | 2023-12-18 09:06 | WPDINTPN ---
Progress Note: A&P Assessment and Plan (1) Acute hypoxic respiratory failure: Code(s): J96.01 - Acute respiratory failure with hypoxia Status: Acute Assessment and Plan: Acute hypoxic respiratory failure likely secondary to combination of pneumonia and pulmonary edema, ? ARDS 12/07/2023: status post tracheostomy. Procedure was complicated. Please refer to ENT op note. A size 6 trachea was able to be placed with a flap she has size 6 proximal XLT tracheostomy -12/16: chest x-ray : Mild central pulmonary edema pattern. Correlate clinically for infection -currently on 50 % FiO2 and peep of 8, wean FiO2 to maintain O2 sats greater than 92% -currently dialysis on hold as patient has had good urine output in response to diuretics and or her own, discussed with Nephrology, -patient diuresed with Bumex 1.5 mg IV x1 on 12/12, 12/13, 12/14. -patient has been diuresing on her own since 12/15 -Continue bronchodilators -off all sedation -off all antibiotics -off restraints 12/02 CT scan of the chest abdomen and pelvis, since patient has had fevers and elevated WBC count IMPRESSION: 1. Multifocal consolidation in the lungs, consistent with pneumonia. 2: Mediastinal lymphadenopathy, likely reactive. 12/02: CT scan of the brain in sinus without contrast IMPRESSION: 1. No acute intracranial abnormality. No evidence for significant sinus disease. 12/04 chest CTA Limited evaluation of subsegmental arteries. No CT evidence of acute central or segmental pulmonary embolus. Unchanged findings consistent with multifocal pneumonia. Minimal lower tracheal secretions. Mediastinal and bilateral hilar lymphadenopathy. (2) Sepsis: Code(s): A41.9 - Sepsis, unspecified organism Status: Acute Assessment and Plan: RESOLVED CT scan done on presentation showed patchy airspace opacities throughout the lungs consistent with pneumonia or pulmonary edema 11/23: Blood, sputum and urine cultures are negative -status post cefepime and azithromycin Nasal MRSA was negative hence vancomycin discontinued in light of worsening renal function -11/29: Patient has been febrile of life with a T-max of 101.1, WBC count is still at 27.4 -11/29: Preliminary blood cultures are negative x2 -11/29: Urine cultures negative -11/29: Sputum cultures growing yeast 12/01; T-max 101.2?, negative venous Dopplers, may have to do a CT scan of chest abdomen and pelvis 12/02: T-max 100.8?, WBC count rising to 29.9, CT scan of the chest showed bilateral multifocal consolidation especially bilateral lower lobes, -completed 10 days of meropenem and vancomycin on 12/11 12/09 WBC increased. Patient now experiencing abdominal pain CT abdomen pelvis as below. Normal lipase. CVC removed / afebrile overnight and WBC improved 12/11: Remains afebrile and WBC count improved 12/12: T-max of 100.1?, WBC increased to 21.3 Patient has been afebrile, WBC trending down, will continue to monitor 12/14: Remains afebrile of white count trending down, continue to monitor Very low-grade temp. Stable WBC. OFF ALL ANTIBIOTICS at this time. Monitor (3) Abdominal pain: Code(s): R10.9 - Unspecified abdominal pain Status: Acute Assessment and Plan: RESOLVED PEG tube placed / tube feeds were resumed and advanced to 40 mL yesterday Overnight patient started complaining of abdominal pain. Tube feeds were held and GI was notified. KUB was done On my review KUB showed gas-filled stomach. Tolerating tube feeds CT scan Interval PEG tube insertion without evidence of extravasation of injected contrast material. Lipase normal Symptoms improved now and patient denies any pain. Tube feeds were started yesterday at a low rate currently on hold for cardiac catheterization 12/11: Increase tube feeds to wall (4) Acute kidney injury superimposed on CKD: Code(s): N17.9 - Acute kidney failure, unspecified; N18.9 - Chronic kidney disease, unspecified
[2023-12-18] MEDS: ACETAMINOPHEN ELIXIR 325 MG/10.15 ML UDC 650 MG PO ×2 (09:14→19:01)
[2023-12-18] MEDS: PANTOPRAZOLE SODIUM IV 40 MG VIAL IV PUSH ×2 (09:18→19:54)
[2023-12-18] MEDS: ALPRAZolam (*CRX) 0.5 MG TABLET FEED TUBE ×2 (09:47→19:54)
[2023-12-18] MEDS: MINERAL OIL/WHITE PETROLATUM OINTMENT 1 APPLIC EACH EYE (10:03)
--- NOTE | 2023-12-18 11:20 | PCNFU ---
Nutrition Follow-Up Complete: Inadequate Oral Intake as related to mechanical ventilation as evidenced by NPO. Goal: Meet estimated nutritional needs. Patient is meeting goal at this time. No new goal. Pt current nutrition is Nepro at 40 ml/hr with Prosource BID. Last recorded weight is 100.6 kg Bowel Motility:+Bm reported 12/17 Labs Reviewed:Glu 183, Cr 1.5,BUN 50, GFR 38, Na 133, Alb 2.9 Meds Noted:NovoLog, Lantus, Protonix, Lovenox Skin: WNL Additional Notes: Patient is current with Trach/PEG. Tube feedings are being tolerated of Nepro at 40ml/hr with Prosource BID. Total Nutrition: 100% kcal needs at 17 kcal/kg and 100% protein needs at 1.0 kcal/kg. Flush 30 ml q 4 hours. Plans for LTAC today. Will monitor weight, labs, skin, meds, tube feeding tolerance every Sunday and Sunday.
[2023-12-18 12:04] LABS: Glucose Point of Care 242 mg/dl (65-105)
[2023-12-18 13:12] LABS: Glucose Point of Care 209 mg/dl (65-105)
--- NOTE | 2023-12-18 14:37 | PM.DS ---
DS: Admitting Diagnosis Discharge Date 12/18/2023 Admitting Diagnosis Respiratory failure DS: Discharge Diagnosis Discharge Diagnosis (1) Acute hypoxic respiratory failure: Code(s): J96.01 - Acute respiratory failure with hypoxia Status: Acute (2) Sepsis: Code(s): A41.9 - Sepsis, unspecified organism Status: Acute (3) Abdominal pain: Code(s): R10.9 - Unspecified abdominal pain Status: Acute (4) Acute kidney injury superimposed on CKD: Code(s): N17.9 - Acute kidney failure, unspecified; N18.9 - Chronic kidney disease, unspecified Status: Acute (5) Cardiac arrest: Code(s): I46.9 - Cardiac arrest, cause unspecified Status: Acute (6) Elevated troponin: Code(s): R79.89 - Other specified abnormal findings of blood chemistry Status: Acute (7) Multifocal pneumonia: Code(s): J18.9 - Pneumonia, unspecified organism Status: Acute (8) Pulmonary edema: Code(s): J81.1 - Chronic pulmonary edema Status: Acute (9) Hypoglycemia: Code(s): E16.2 - Hypoglycemia, unspecified Status: Acute (10) Anemia: Code(s): D64.9 - Anemia, unspecified Status: Acute (11) Diabetes: Code(s): E11.9 - Type 2 diabetes mellitus without complications Status: Chronic DS: Summary Hospital Course Hospital Course: # acute hypoxic respiratory failure: Acute hypoxic respiratory failure likely secondary to combination of pneumonia and pulmonary edema, ?? ARDS Admitted 11/23/2023 and intubated Remain intubated and on 12/07/2023 status post tracheostomy Maintain on mechanical ventilation -Continue bronchodilators 12/02 CT scan of the chest abdomen and pelvis, since patient has had fevers and elevated WBC count IMPRESSION: 1. Multifocal consolidation in the lungs, consistent with pneumonia. 2: Mediastinal lymphadenopathy, likely reactive. 12/02:? CT scan of the brain in sinus without contrast IMPRESSION: 1. No acute intracranial abnormality. No evidence for significant sinus disease. 12/04 chest CTA Limited evaluation of subsegmental arteries. No CT evidence of acute central or segmental pulmonary embolus. Unchanged findings consistent with multifocal pneumonia. Minimal lower tracheal secretions. Mediastinal and bilateral hilar lymphadenopathy. # sepsis: RESOLVED CT scan done on presentation showed patchy airspace opacities throughout the lungs consistent with pneumonia or pulmonary edema 11/23: Blood, sputum and urine cultures are negative -status post cefepime and azithromycin Nasal MRSA was negative hence vancomycin discontinued in light of worsening renal function -11/29:? Patient has been febrile of life with a T-max of 101.1, WBC count is still at 27.4 -11/29:? Preliminary blood cultures are negative x2 -11/29:? Urine cultures negative -11/29:? Sputum cultures growing yeast 12/01; T-max 101.2?, negative venous Dopplers, may have to do a CT scan of chest abdomen and pelvis 12/02:? T-max 100.8?, WBC count rising to 29.9, CT scan of the chest showed bilateral multifocal consolidation especially bilateral lower lobes, -completed?10 days of meropenem and vancomycin on 12/11 12/09 WBC increased.? Patient now experiencing abdominal pain CT? abdomen pelvis as below.? Normal lipase. CVC removed 12/10 afebrile overnight and WBC improved 12/11:? Remains afebrile and WBC count improved 12/12:? T-max of 100.1?, WBC increased to 21.3 Patient has been afebrile, WBC trending down, will continue to monitor 12/14:? Remains afebrile of white count trending down, continue to monitor Very low-grade temp.? Stable WBC. OFF ALL ANTIBIOTICS at this time.? Monitor # abdominal pain: RESOLVED PEG tube placed / tube feeds were resumed and advanced to 40 mL yesterday Overnight patient started complaining of abdominal pain.? Tube feeds were held and GI was notified.? KUB was done On my review KUB showed gas-filled stomach. Tolerating tube feeds
--- NOTE | 2023-12-18 14:50 | PCOTNOTE ---
Per RN, Patient is planning on transferring to another facility this date. Patient is having increased anxiety. Patient declined participating in therapy this session. Patient mouthed/ verbalized I'm not up for it, I'm going to leave, I'm nervous . Patient declined all activity this session.
[2023-12-18 15:58] LABS: Glucose Point of Care 151 mg/dl (65-105)
[2023-12-18 19:50] LABS: Glucose Point of Care 212 mg/dl (65-105)
--- NOTE | 2023-12-18 20:22 | PC.NURSE ---
Report given to Yuni RAHMAN at [facility]. New estimate time of arrival from [place] is 2044.
--- NOTE | 2023-12-18 22:29 | PC.NURSE ---
Patient discharge to [facility] [place]. All belongings gathered. [place] notified as well message left for .
== END 2023-12-18 22:15 | DRG 4 ==
LOC: ANHED 15:54 → ANHICU 21:03
PROVIDERS: Family Medicine; Internal Medicine; Internal Medicine Gastroenterology; Internal Medicine Nephrology; Otolaryngology; Specialist; Admitting Provider Internal Medicine; Emergency Provider Student in an Organized Health Care Education/Training Program; PCP Nurse Practitioner Family; Visit Provider Internal Medicine
PROC: 0B110F4 Bypass Trachea to Cutaneous with Tracheostomy Device, Open Approach (ICD-10-PCS; principal; 2023-12-07 10:00)
PROC: 0DH63UZ Insertion of Feeding Device into Stomach, Percutaneous Approach (ICD-10-PCS; CPT 43246; principal; 2023-12-07 16:00)
PROC: 4A023N7 Measurement of Cardiac Sampling and Pressure, Left Heart, Percutaneous Approach (ICD-10-PCS; CPT 93452; principal; 2023-12-10 11:30)
PROC: 027135Z Dilation of Coronary Artery, Two Arteries with Two Drug-eluting Intraluminal Devices, Percutaneous Approach (ICD-10-PCS; 2023-12-10 11:30)
PROC: 027135Z Dilation of Coronary Artery, Two Arteries with Two Drug-eluting Intraluminal Devices, Percutaneous Approach (ICD-10-PCS; 2023-12-10 11:30)
PROC: 0DJ08ZZ Inspection of Upper Intestinal Tract, Via Natural or Artificial Opening Endoscopic (ICD-10-PCS; CPT 43235; principal; 2023-12-13 14:00)
DX: A41.9 Sepsis, unspecified organism (principal); J18.9 Pneumonia, unspecified organism; R65.21 Severe sepsis with septic shock; N17.0 Acute kidney failure with tubular necrosis; J96.01 Acute respiratory failure with hypoxia; E10.10 Type 1 diabetes mellitus with ketoacidosis without coma; I46.9 Cardiac arrest, cause unspecified; K72.00 Acute and subacute hepatic failure without coma; E87.5 Hyperkalemia; G93.1 Anoxic brain damage, not elsewhere classified; J81.1 Chronic pulmonary edema; R57.0 Cardiogenic shock; R68.0 Hypothermia, not associated with low environmental temperature; E66.01 Morbid (severe) obesity due to excess calories; Z20.822 Contact with and (suspected) exposure to COVID-19; E10.22 Type 1 diabetes mellitus with diabetic chronic kidney disease; F17.210 Nicotine dependence, cigarettes, uncomplicated; N18.32 Chronic kidney disease, stage 3b; M96.A3 Multiple fractures of ribs associated with chest compression and cardiopulmonary resuscitation; R79.89 Other specified abnormal findings of blood chemistry; R16.0 Hepatomegaly, not elsewhere classified; E10.649 Type 1 diabetes mellitus with hypoglycemia without coma; R10.9 Unspecified abdominal pain; I25.10 Atherosclerotic heart disease of native coronary artery without angina pectoris; I13.10 Hypertensive heart and chronic kidney disease without heart failure, with stage 1 through stage 4 chronic kidney disease, or unspecified chronic kidney disease; D64.9 Anemia, unspecified; R19.5 Other fecal abnormalities; Z96.41 Presence of insulin pump (external) (internal); Z79.4 Long term (current) use of insulin; Z68.39 Body mass index [BMI] 39.0-39.9, adult
CPT/HCPCS: 36415; 36556; 36600; 43246; 70450; 70486; 71045; 71250; 71275; 74176; 74177; 76705; 76775; 80048; 80053; 80076; 80202; 80307; 81001; 81050; 82010; 82271; 82375; 82550; 82570; 82805; 82948; 83036; 83050; 83605; 83690; 83735; 83880; 83930; 83935; 83986; 84100; 84156; 84300; 84443; 84478; 84484; 84540; 84703; 85025; 85027; 85384; 85610; 85730; 85999; 86140; 86706; 87040; 87070; 87086; 87088; 87205; 87340; 87493; 87637; 87641; 93005; 93458; 93970; 94002; 94003; 94640; 96365; 96375; 97110; 97162; 97167; 97530; 97535; 99291; A9270; C1725; C1751; C1752; C1769; C1874; C1887; C1894; C8929; C9113; C9600; G0257; J0171; J0360; J0456; J0461; J0583; J0690; J0692; J1644; J1650; J1720; J1815; J1836; J1939; J1940; J2060; J2185; J2250; J2270; J2371; J2405; J2704; J2765; J2997; J3010; J3370; J3475; J7030; J7040; J7042; J7050; J7120; L1830; P9047; Q4081; Q5105; Q9957; Q9967

== ENCOUNTER 2024-05-27 05:47 | Emergency (ER) | payer OTHER, SELFPAY ==
[2024-05-27] VITALS (7 sets, daily range): BP systolic 136–156; BP diastolic 47–69; PULSE 74–83; RESP 12–16; TEMP 36.7; O2SAT 93–96
--- NOTE | ~2024-05-27 | XR_ITS ---
EXAMINATION: XR chest 2V DATE: 05/27/2024 06:21 INDICATION: Increased sputum production and wheezing TECHNIQUE: frontal and lateral views of the chest were obtained. COMPARISON: Chest radiograph dated 12/18/2023 FINDINGS: Tracheostomy tube at the thoracic inlet. Lungs are clear with no focal airspace opacities, pulmonary edema, pleural effusion or pneumothorax. The cardiomediastinal silhouette is normal. Visualized bones and soft tissues are unremarkable. IMPRESSION: 1. No acute cardiopulmonary disease. Reviewed, dictated and finalized at location A.
--- NOTE | 2024-05-27 06:34 | ED.GENADULT ---
HPI - General Adult General Chief complaint: Unspecified <Quinton Luke MD - Last Filed: 05/27/24 06:52> Stated complaint: blood in trach <Quinton Luke MD - Last Filed: 05/27/24 06:52> Time Seen by Provider: 05/27/24 05:50 <Quinton Luke MD - Last Filed: 05/27/24 06:52> History of Present Illness HPI narrative: This is a 44-year-old female with tracheostomy as result of cardiac arrest earlier this year presenting with possible blood in trach. Patient with suctioning her trach and she noticed that it had red sputum on a. She became very concerned and then came to the ED. Patient notes that she has had slightly increased sputum production lately. The patient does not have any fevers shortness of breath, nausea vomiting or diarrhea <Quinton Luke MD - Last Filed: 05/27/24 06:52> Related Data Home medications: Home Medications Medication Instructions Recorded Confirmed atorvastatin 20 mg tablet 20 tablet PO DAILY 04/12/22 11/24/23 bupropion HCl (smoking deter) 150 150 mg PO Q12H 04/12/22 11/24/23 mg tablet,12 hr sustained-release(smoking deterrent) carvedilol 6.25 mg tablet 25 tablet PO Q12H 04/12/22 11/24/23 clonazepam 0.5 mg tablet 0.5 tablet PO BID 04/12/22 11/24/23 venlafaxine 150 mg 187.5 mg PO DAILY 04/12/22 11/25/23 capsule,extended release 24 hr amlodipine 10 mg tablet 10 mg PO DAILY 11/20/22 11/24/23 insulin pump cart,automated,BT 06/02/23 11/24/23 (Omnipod 5 G6 Pods (Gen 5) subcutaneous cartridge) insulin pump cartridge,automated 06/02/23 11/24/23 dose,BT with controller subcutaneous (Omnipod 5 G6 Intro Kit (Gen 5) subcutaneous cartridge with controller) levonorgestrel 17.5 mcg/24 hr (up See Rx Instructions .Route .COMPLEX 06/02/23 11/24/23 to 5 yrs) 19.5mg intrauterine device (Kyleena) montelukast 5 mg chewable tablet 5 mg PO HS 06/02/23 11/24/23 trazodone 100 mg tablet 100 mg PO HS 06/02/23 11/24/23 chlorthalidone 25 mg tablet 25 mg PO DAILY 10/26/23 11/24/23 codeine 10 mg-guaifenesin 100 mg/5 5 - 10 ml PO Q6H PRN Cough 11/24/23 11/24/23 mL oral liquid hydrochlorothiazide 25 mg tablet 25 mg PO DAILY 11/24/23 11/24/23 insulin lispro 100 unit/mL See Rx Instructions .Route .COMPLEX 11/24/23 11/24/23 subcutaneous solution (Humalog U-100 Insulin) <Quinton Luke MD - Last Filed: 05/27/24 06:52> Allergies/adverse reactions: Allergies Allergy/AdvReac Type Severity Reaction Status Date / Time doxycycline Allergy Other Verified 10/26/23 11:58 propoxyphene AdvReac Mild Itching Verified 06/02/23 15:32 [From Darvocet-N 100] <Quinton Luke MD - Last Filed: 05/27/24 06:52> [facility] Past Medical History Medical History: Medical History Acute adjustment disorder with anxiety CKD stage 3 secondary to diabetes Essential hypertension Hyperlipidemia <Quinton Luke MD - Last Filed: 05/27/24 06:52> Surgical History Surgical History: Surgical History Hx of cholecystectomy Status post insertion of percutaneous endoscopic gastrostomy (PEG) tube <Quinton Luke MD - Last Filed: 05/27/24 06:52> Family History Family History: Family History Other Unknown family medical history <Quinton Luke MD - Last Filed: 05/27/24 06:52> Social History Social History: Social History Social History: The patient is current everyday smoker. She lives at home with her and her elderly mother. Code status: Full code Surrogate decision maker: Years smoked: 16 Smoking status: Current every day smoker Tobacco type: cigarettes Alcohol intake: never Substance use: never Substance use type: does not use Spiritual care concerns: No <Quinton Luke MD - Last
[2024-05-27 06:58] LABS: Alanine Aminotransferase 14 U/L (6-35); Albumin Level 4.1 g/dL (3.5-5.1); Alkaline Phosphatase 115 U/L (38-126); Anion Gap 10 mmol/L (4-12); Aspartate Amino Transferase 19 U/L (14-36); Bilirubin,Total 0.3 mg/dL (0.2-1.3); Blood Urea Nitrogen 36 mg/dL (7-17); Calcium 9.3 mg/dL (8.4-10.2); Carbon Dioxide 27 mmol/L (22-30); Chloride 98 mmol/L (98-107); Estimated CRCL calculation 41 ml/min; Estimated Glomerular Filt Rate 33; Glucose 352 mg/dL (65-110); Potassium 4.1 mmol/L (3.4-5.0); Sodium 135 mmol/L (137-145)
[2024-05-27 07:20] LABS: Basophils Absolute Auto 0.1 K/mm3 (0.0-0.1); Basophils Percent Auto 0.8 % (0.2-1.2); Eosinophils Absolute Auto 0.4 K/mm3 (0-0.3); Eosinophils Percent Auto 4.4 % (0-4.4); Hematocrit 37.1 % (37.0-47.0); Hemoglobin 11.9 g/dL (12.0-15.0); Immature Granulocyte Absolute 0.04 K/mm3 (0.00-0.031); Immature Granulocyte Percent A 0.4 % (0-0.5); Lymphocytes Absolute Auto 1.23 K/mm3 (0.9-3.2); Lymphocytes Percent Auto 13.5 % (18.3-44.2); Mean Corpuscular HGB Conc 32.1 g/dl (32-36); Mean Corpuscular Hemoglobin 28.5 pg (26-34); Mean Corpuscular Volume 88.8 fl (80-100); Mean Platelet Volume 9.3 fl (7.4-10.4); Monocytes Absolute Auto 0.8 K/mm3 (0.1-0.6); Monocytes Percent Auto 8.7 % (2.6-8.5); Neutrophils Absolute Auto 6.6 K/mm3 (1.3-6.7); Neutrophils Percent Auto 72.2 % (45.5-73.1); Platelet Count Result 354 k/mm3 (150-375); Red Blood Count 4.18 M/mm3 (4.2-5.4); Red Cell Distribution Width 12.8 % (11.5-14.5); White Blood Count 9.1 K/mm3 (4.5-10.0)
[2024-05-27 07:23] LABS: Influenza A QL RT-PCR Negative (Negative); Influenza B QL RT-PCR Negative (Negative); RSV RNA, RT-PCR Negative (Negative); SARS-CoV-2 RNA PCR Negative (Negative)
[2024-05-27] MEDS: ACETAMINOPHEN 500 MG TABLET 1000 MG PO (07:33)
== END 2024-05-27 07:49 | disposition home or self-care (01) ==
PROVIDERS: Emergency Medicine; Emergency Provider Student in an Organized Health Care Education/Training Program; PCP Nurse Practitioner Family
DX: R04.2 Hemoptysis (principal); D64.9 Anemia, unspecified; I12.9 Hypertensive chronic kidney disease with stage 1 through stage 4 chronic kidney disease, or unspecified chronic kidney disease; E11.22 Type 2 diabetes mellitus with diabetic chronic kidney disease; N18.30 Chronic kidney disease, stage 3 unspecified; F17.210 Nicotine dependence, cigarettes, uncomplicated; Z93.0 Tracheostomy status; Z20.822 Contact with and (suspected) exposure to COVID-19
CPT/HCPCS: 36415; 71046; 80053; 85025; 87637; 99284; A9270

== ENCOUNTER 2024-11-20 13:45 | Outpatient (RCR) | payer OTHER, SELFPAY ==
--- NOTE | 2024-09-24 15:32 | PCPTNOTE ---
pt called and canceled today's eval appt.
--- NOTE | 2024-10-10 15:44 | OPREHPOC ---
Outpatient Therapy Plan of Care This is a Multidisciplinary Plan of Care that may contain components documented by all disciplines (PT, OT, and ST.) PT Problem 1 PT Problem #1 Knowledge Deficit PT Goal 1 Goal / Goal Update *indep with HEP Target Visit 10 PT Problem 2 PT Problem #2 Impaired Range of Motion PT Goal 1 Goal / Goal Update *improve knee and ankle ROM to improve gait and sit/stand transfer ability 1* R ankle DF 5' 2* L ankle DF 5' 3* R knee extension 0' 4* L knee extension 0' 5* R knee flexion 110' 6* L knee flexion 105' Target Visit 10 PT Problem 3 PT Problem #3 Impaired Functional Mobility PT Goal 1 Goal / Goal Update * 2 minute walking test distance of 250' Target Visit 10 PT Goal 2 Goal / Goal Update * 5 reps sit/stand time of 18 seconds Target Visit 10 PT Problem 4 PT Problem #4 Impaired Strength PT Goal 1 Goal / Goal Update * static standing tolerance of 4 minutes, to improve ability to stand for kitchen and home activity Target Visit 10 PT Goal 2 Goal / Goal Update *pt report activity tolerance with home activities 30 minutes: sitting and/or standing positions Target Visit 10
--- NOTE | 2024-10-10 15:44 | PTOPEVAL1 ---
Assessment and note entered by Nelly De La O, PT Evaluation Information Assessment Status Evaluation ICD-10 Condition Codes (PT) R26.9,Weakness R53.1 Other ICD-10 Condition Codes ( R53.81 physical deconditioning PT) Onset Nov 2023 Subjective Information onset of issues Nov 2023- acute respiratory failure, sepsis, intubated, pneumonia, pulmonary edema; hospital, rehab and returned home March. Have had 2 falls since home from hospital; have not been doing any leg exercise at home. now: walking 20-25' in home without assistive device; does not use the wheel chair in the house; limited standing tolerance; Jacobo does almost all home tasks; Discussed use of of wheel chair in home to increase home tasks and up/around more; perform home tasks from chair have vascular issues--US negative; going to see vascular surgeon; to start with student finance specialist next week; follow with kidney dr at [place]; cardiology manager; Prior to hospitalization: active, indep with everything; Reported Pain Level Pain Score Self Report Additional Pain Score Comments pain range in the past week 0-8/10; whole L leg sinclair, hurts to bone knees and ankles hurt-- had L knee steroid injection tylenol does not help; Assessment PT Clinical Summary Yudelka has the diagnosis of deconditioning and weakness. Onset of illness was Nov 2023 with hospitalization and multiple medical issues. She still has tracheal tube for talking. She came home from hospital & rehab in March. Her PT order is dated Jul, but she reports she was ill and had to cancel 2 previous appt she had made. Prior to hospitalization, she was active and indep now her is doing all the home tasks. With the evaluation: she has decreased ROM of R and L knee flexion and extension and ankle DF ranges, with edema over both legs, L > R, with pain in legs and back; 5 reps sit/stand time of 25 seconds; 2 minute walking test distance of 100' with 1 sitting rest break; static standing tolerance of 1 minute & 58 seconds; Skilled PT services are indicated to increase LE strength, gait and balance skills, monitor vitals PRN and education for HEP and gait training. Monitor vitals PRN and pain during sessions. Will measure her for compression garments for LE's and recommend type for her to obtain. Plan of Care Interventions Neuro Re-education,Patient/Caregiver Education, Therapeutic Activities,Therapeutic Exercise PT Services Indicated Yes Treatment Frequency and 1-2x/wk for 10 visits Duration These treatments will address the objective and functional deficits as defined above. The patient will be advanced safely and appropriately in order for the patient to progress towards his/her prior level of function. Additional exercises will be introduced and as well as a comprehensive home exercise program upon discharge, if needed, ?to ensure carryover of functional gains achieved in the clinic. This treatment plan has been reviewed and agreement upon by the patient.
--- NOTE | 2024-10-30 09:16 | PCPTNOTE ---
Reschedule todays appt for tomorrow. AKS
--- NOTE | 2024-11-12 14:48 | PCPTNOTE ---
Pt canceled due to family emergency.
--- NOTE | 2024-11-19 11:34 | PCPTNOTE ---
Canceled/ill. AKS
--- NOTE | 2024-11-24 11:33 | PCPTNOTE ---
Patient called and cancelled secondary to having respiratory issues
--- NOTE | 2024-12-01 13:57 | PCPTNOTE ---
Canceled, not feeling well.
== END 2024-12-30 11:05 | disposition home or self-care (01) ==
LOC: ANHPT 13:45
PROVIDERS: PCP Nurse Practitioner Family; Visit Provider Nurse Practitioner Family
DX: R53.81 Other malaise (principal); R26.81 Unsteadiness on feet
CPT/HCPCS: 97110; 97116; 97162; 97530

== ENCOUNTER 2025-01-08 02:38 | Emergency (ER) | payer OTHER, SELFPAY ==
[2025-01-08] VITALS (7 sets, daily range): BP systolic 147–183; BP diastolic 69–79; PULSE 78–87; RESP 13–19; TEMP 36.4–37.2; O2SAT 95–99
--- NOTE | ~2025-01-08 | CT_ITS ---
CT Scan of the Chest without Contrast: Clinical Indication: Hemoptysis Technique: Contiguous sections were acquired throughout the chest without intravenous contrast. Dose reduction technique was used on this scan by utilizing automated exposure control and iterative recon struction technique. The dose-length product (DLP) was 580.50 mGy-cm. COMPARISON: 12/09/2023 Findings: Tracheostomy cannula present. There is no evidence of any significant mediastinal, hilar or axillary lymphadenopathy. Coronary roque ry calcifications are present. There is no evidence of pleural or pericardial effusion. The lungs are clear, aside from linear left basilar scarring or atelectasis. Images through the upper abdomen reveal no abnormalities. Impression: No significant abnormalities seen. Reviewed, dictated and finalized at location . GRADER Impression: No significant abnormalities seen.
--- NOTE | 2025-01-08 02:41 | ED.GENADULT ---
HPI - General Adult General Chief complaint: Unspecified Stated complaint: blood in trach Time Seen by Provider: 01/08/25 02:38 History of Present Illness HPI narrative: Patient 45-year-old female presents emergency department with chief complaint of blood from trach. Patient has history of a tracheostomy and over the last day he has noticed that she had a little blood from her trach in the night she had a large amount of blood from her trach patient is followed at [facility] for her trach patient reports no trauma patient reports that she is on antiplatelet therapy taking Plavix Related Data Home Medications ?Medication ?Instructions ?Recorded ?Confirmed ?Last Taken ?Type atorvastatin 20 mg tablet 20 tablet PO DAILY 04/12/22 11/24/23 Unknown History bupropion HCl (smoking deter) 150 150 mg PO Q12H 04/12/22 11/24/23 Unknown History mg tablet,12 hr sustained-release(smoking deterrent) carvedilol 6.25 mg tablet 25 tablet PO Q12H 04/12/22 11/24/23 Unknown History clonazepam 0.5 mg tablet 0.5 tablet PO BID 04/12/22 11/24/23 Unknown History venlafaxine 150 mg 187.5 mg PO DAILY 04/12/22 11/25/23 Unknown History capsule,extended release 24 hr amlodipine 10 mg tablet 10 mg PO DAILY 11/20/22 11/24/23 Unknown History insulin pump cart,automated,BT 06/02/23 11/24/23 Unknown History (Omnipod 5 G6 Pods (Gen 5) subcutaneous cartridge) insulin pump cartridge,automated 06/02/23 11/24/23 Unknown History dose,BT with controller subcutaneous (Omnipod 5 G6 Intro Kit (Gen 5) subcutaneous cartridge with controller) levonorgestrel 17.5 mcg/24 hr (up See Rx Instructions .Route .COMPLEX 06/02/23 11/24/23 Unknown History to 5 yrs) 19.5mg intrauterine device (Kyleena) montelukast 5 mg chewable tablet 5 mg PO HS 06/02/23 11/24/23 Unknown History trazodone 100 mg tablet 100 mg PO HS 06/02/23 11/24/23 Unknown History chlorthalidone 25 mg tablet 25 mg PO DAILY 10/26/23 11/24/23 Unknown History codeine 10 mg-guaifenesin 100 mg/5 5 - 10 ml PO Q6H PRN Cough 11/24/23 11/24/23 Unknown History mL oral liquid hydrochlorothiazide 25 mg tablet 25 mg PO DAILY 11/24/23 11/24/23 Unknown History insulin lispro 100 unit/mL See Rx Instructions .Route .COMPLEX 11/24/23 11/24/23 Unknown History subcutaneous solution (Humalog U-100 Insulin) Allergies Allergy/AdvReac Type Severity Reaction Status Date / Time doxycycline Allergy Other Verified 01/08/25 02:43 propoxyphene (From AdvReac Mild Itching Verified 01/08/25 02:43 Darvocet-N 100) Review of Systems Review of Systems: A 10 system review of systems was completed on the patient and is negative except for what is stated in the HPI. Nursing and ancillary documentation was reviewed. [facility] Past Medical History Medical History Acute adjustment disorder with anxiety CKD stage 3 secondary to diabetes Essential hypertension Hyperlipidemia Surgical History Surgical History Hx of cholecystectomy Status post insertion of percutaneous endoscopic gastrostomy (PEG) tube Family History Family History Other Unknown family medical history Social History Social History Social History: The patient is current everyday smoker. She lives at home with her and her elderly mother. Code status: Full code Surrogate decision maker: Years smoked: 16 Smoking status: Current every day smoker Tobacco type: cigarettes Alcohol intake: never Substance use: never Substance use type: does not use Spiritual care concerns: No Exam Narrative: GENERAL: Well-appearing, well-nourished, and in no acute distress. HEAD: Normocephalic, atraumatic. EYES: PERRLA and EOMI. ENT: Nares clear, no rhinorrhea or epistaxis. Mucous membranes moist. NECK: Supple. Trach in place the neck there is bloody hemoptysis outside of the trach there is no swelling of the neck there is no active bleeding from around the trach site CHEST: Clear to auscultation. No respiratory distress. HEART: Regular rate and rhythm. No murmur heard. Normal peripheral pulses. ABDOMEN: Soft, nontender, nondistended, normal active bowel sounds. EXTREMITIES: Normal range of motion. No edema. SKIN: Warm, dry, no rash. NEURO: No focal deficits. Alert and oriented x3. PSYCH: Normal mood and affect. Course Vital Signs Vital signs: Vital Signs Temperature 37.2 C 01/08/25 02:37 Pulse Rate 87 01/08/25 02:37 Respiratory Rate 19 01/08/25 02:37 Blood Pressure 183/75 H 01/08/25 02:37 Pulse Oximetry 95 01/08/25 02:37 Oxygen Delivery Room Air 01/08/25 02:37 Temperature 37.2 C 01/08/25 02:37 Pulse Rate 79 01/08/25 05:00 Respiratory Rate 15 01/08/25 05:00 Blood Pressure 154/79 H 01/08/25 05:00 Pulse Oximetry 97 01/08/25 05:00 Oxygen Delivery High Flow Therapy with Trach Collar 01/08/25 03:00 Oxygen Flow Rate 35 01/08/25 03:00 Medical Decision Making MDM Narrative Medical decision making narrative: Differential diagnosis includes sentinel bleed, tracheal innominate artery fistula, suction trauma, CT of the chest showed no evidence of fluid collection no evidence of pneumonia The case was discussed with Dr. Francis of the ENT service since the patient is currently seeing ENT at [facility] as we do not currently have ENT coverage Dr. Kothari would like the patient to come to the emergency department so that she can be scoped in the ER by ENT patient was accepted by Dr. Crowley Vital Signs Vital Signs: Vital Signs Temperature 37.2 C 01/08/25 02:37 Pulse Rate 87 01/08/25 02:37 Respiratory Rate 19 01/08/25 02:37 Blood Pressure 183/75 H 01/08/25 02:37 Pulse Oximetry 95 01/08/25 02:37 Oxygen Delivery Room Air 01/08/25 02:37 Temperature 37.2 C 01/08/25 02:37 Pulse Rate 79 01/08/25 05:00 Respiratory Rate 15 01/08/25 05:00 Blood Pressure 154/79 H 01/08/25 05:00 Pulse Oximetry 97 01/08/25 05:00 Oxygen Delivery High Flow Therapy with Trach Collar 01/08/25 03:00 Oxygen Flow Rate 35 01/08/25 03:00 Lab Data 01/08/25 02:58 01/08/25 02:58 Labs: Lab Results 01/08/25 01/08/25 Range/Units 02:58 05:27 WBC 11.7 H (4.5-10.0) K/mm3 RBC 4.37 (4.2-5.4) M/mm3 Hgb 12.8 (12.0-15.0) g/dL Hct 38.7 (37.0-47.0) % MCV 88.6 (80-100) fl MCH 29.3 (26-34) pg MCHC 33.1 (32-36) g/dl RDW 11.9 (11.5-14.5) % Plt Count 275 (150-375) k/mm3 MPV 9.6 (7.4-10.4) fl Immature Gran % (Auto) 0.3 (0-0.5) % Neut % (Auto) 70.2 (45.5-73.1) % Lymph % (Auto) 17.6 L (18.3-44.2) % [place] % (Auto) 7.6 (2.6-8.5) % Eos % (Auto) 3.7 (0-4.4) % Baso % (Auto) 0.6 (0.2-1.2) % Lymph # (Auto) 2.07 (0.9-3.2) K/mm3 [place] # (Auto) 0.9 H (0.1-0.6) K/mm3 Eos # (Auto) 0.4 H (0-0.3) K/mm3 Baso # (Auto) 0.1 (0.0-0.1) K/mm3 Abs Immat Gran (auto) 0.04 H (0.00-0.031) K/mm3 Absolute Neuts (auto) 8.2 H (1.3-6.7) K/mm3 Absolute Nucleated RBC 0.000 (0.0-0.012) K/mm3 Nucleated RBC % 0.0 (0.0-0.2) % % Immature Plt Fraction 1.5 (0.9-11.2) % PT 13.2 (11.1-14.7) Seconds INR 1.0 APTT 27.7 (22.3-36.8) Seconds Sodium 133 L (137-145) mmol/L Potassium 4.0 (3.4-5.0) mmol/L Chloride 94 L (98-107) mmol/L Carbon Dioxide 25 (22-30) mmol/L Anion Gap 14 H (4-12) mmol/L BUN 70 H D (7-17) mg/dL Creatinine 2.16 H (0.7-1.0) mg/dL Estim Creat Clear Calc 33 ml/min Estimated GFR 25 L (59 - ) Glucose 374 H (65-110) mg/dL Lactic Acid 1.1 (0.7-2.0) mmol/L Calcium 9.1 (8.4-10.2) mg/dL Magnesium 2.7 H (1.6-2.3) mg/dL Total Bilirubin 0.3 (0.2-1.3) mg/dL AST 23 (14-36) U/L ALT 17 (6-35) U/L Alkaline Phosphatase 103 (38-126) U/L Total Protein 8.0 (6.3-8.2) g/dL Albumin 4.0 (3.5-5.1) g/dL Urine Color Yellow (Yellow) Urine Appearance Clear (Clear) Urine pH 7.0 (5.0-9.0) Ur Specific [place] 1.015 (1.001-1.035) Urine Protein Trace (Negative) mg/dL Urine Glucose (UA) 3+ H (Negative) mg/dL Urine Ketones Negative (Negative) mg/dL Ur Blood (Man) Negative (Negative) Urine Nitrate Negative (Negative) Urine Bilirubin Negative (Negative) Urine Urobilinogen 0.2 (<2.0) mg/dL Leukocyte Esterase Rfl Negative (Negative) GUILLERMINA/UL Urine RBC 0-2 (0-2) /hpf Urine WBC 0-5 (0-3) /hpf Ur Squamous Epith Cells Occasional (Few) /hpf Urine Bacteria None seen /hpf Urine Casts 0-2 Influenza A (RT-PCR) Negative (Negative) Influenza B (RT-PCR) Negative (Negative) RSV (RT-PCR) Negative (Negative) SARS-CoV-2 RNA (RT-PCR) Negative (Negative) Discharge Plan Discharge Clinical Impression: Hemoptysis Patient Disposition: Acute Care Hospital Condition: Stable Patient Language: Kiswahili Prescriptions: No Action (DME) Omnipod 5 G6 Pods (Gen 5) Cartridge SUBCUT (DME) Omnipod 5 G6 Intro Kit (Gen 5) Cartridge SUBCUT montelukast 5 mg tablet,chewable 5 mg PO HS trazodone 100 mg tablet 100 mg PO HS Kyleena 17.5 mcg/24 hrs (5 yrs) 19.5 mg Intrauterine Device See Rx Instructions .ROUTE .COMPLEX Rx Instructions: 17.5 mcg intrauterinely chlorthalidone 25 mg tablet 25 mg PO DAILY amlodipine 10 mg tablet 10 mg PO DAILY acetaminophen 500 mg capsule 1,000 mg PO Q6H PRN (Reason: pain) Qty: 20 0RF carvedilol 6.25 mg tablet 25 tablet PO Q12H atorvastatin 20 mg tablet 20 tablet PO DAILY clonazepam 0.5 mg tablet 0.5 tablet PO BID venlafaxine 150 mg capsule,extended release 24hr 187.5 mg PO DAILY bupropion HCl (smoking deter) 150 mg tablet extended release 12 hr 150 mg PO Q12H codeine-guaifenesin 10-100 mg/5 mL liquid 5 - 10 ml PO Q6H PRN (Reason: Cough) hydrochlorothiazide 25 mg tablet 25 mg PO DAILY insulin lispro [Humalog U-100 Insulin] 100 unit/mL solution See Rx Instructions .ROUTE .COMPLEX Rx Instructions: ADMINISTER UP TO 100 UNITS UNDER THE SKIN DAILY alprazolam 0.5 mg Tablet 0.5 mg feeding tube TID Qty: 10 0RF Follow-up/Referrals: Jerome,Dunia Cunningham APRN [Primary Care Provider] - Time of Disposition: 05:52
--- OUTSIDE RECORDS SUMMARY | 2025-01-08 02:54 | XMS_ITS | Encounter Summary ---
Author Organization [facility] Address [address] [place] [address] Phone Care Team Providers Care Wafer Polishing Worker Name Role Phone Dunia Reynolds MD Primary Care Provider [phone] Reason for Visit * Reason Comments Med Refill Encounter Details Date Type Department Care Team (Late st Contact Info) Description 01/10/2024 Refill Valmy Halton [facility] [address] [place] [id number] Teddy Lawton DO [address] [place] [address] Social History Tobacco Use Types Packs/Day Years Used Date Smoking Tobacco: Never Assessed Comments Unknown Sex and Gender Information Value Date Recorded Sex Assigned at Not on file Legal Sex Female 11:00 AM EDT Gender Identity Not on file Sexual Orientation Not on file documented as of this encounter Plan of Treatment Not on file documented as of this encounter Visit Diagnoses Not on filedocumented in this encounter Care Teams Wafer Polishing Worker Relationship Specialty Start Date End Date Dunia Reynolds MD [address] [place], [place] [id number] PCP - General Endocrinology 04/05/23 documented as of this encounter
--- OUTSIDE RECORDS SUMMARY | 2025-01-08 02:54 | XMS_ITS | Continuity of Care Document ---
Author Organization [facility] ter Address [address] [place] [address] Phone Care Team Providers Care Manager Operations And Procurement Name Role Phone Unavailable Unavailable Unavailable Advance Directives Directive Yes / No Effective Date File Name No Information Encounters Encounter Description Practice Location Reason(s) For Visit Diagnoses Date Provider Providers Copied on Encounter [facility], [address], [place], [place], [id number], tel:[phone] [facility] [place] [facility] No Information No Information Family History Family Member Type Diagnosis Age At Onset No Information Payers Payer name Insurance type Covered republican ID Authoriza tion(s) [employer] [facility] [employer] [place] CI [id number] [employer] CI [id number] Social History Type Description Quantity Date Captured Comments Sex Female Smoking Status No Information Chief Complaint And Reason For Visit No Information Reason For Referral Reason For Referral No Information History Of Present Illness Encounter Date Complaint History Of Prese nt Illness No Information Functional Status Date Functional Assessmen t No Information Instructions Date Instruction Additional Infor mation No Information Assessments Type Assessment Date No Information Patient Care Teams Name Effective Dates (start - stop) Status Members No Information
--- OUTSIDE RECORDS SUMMARY | 2025-01-08 02:54 | XMS_ITS | Referral Summary ---
Author Organization [facility] Address [address] [place] [address] Care Team Providers Care Tube Filler Name Role Phone Rogers Vazquez MD Unavailable Dunia Cano NP Primary Care Provider Nguyễn Howell MD Unavailable Teddy Lawton DO Unavailable Encounters Date Type Department Care Team Description 2025 Telephone [facility] Cardiology [address] [facility] Medical Office Building [address] [place] [address] Sharri Manuel 12/31/2024 Results Follow-Up [facility] Primary Care at [address] [phone] Dunia Cano NP 12/31/2024 9:21 AM PLANT FACILITIES TECHNICIAN - 12/31/2024 11:59 PM PLANT FACILITIES TECHNICIAN Hospital Encounter [address] [address] Burning with urination Discharge Disposition: Discharge to home or self care 12/31/2024 9:15 AM PLANT FACILITIES TECHNICIAN Lab [facility] Outpatient Lab at [address] [phone] 12/24/2024 Telephone [facility] [id number] [place] [address] [address] [place] [phone] Lala Camacho NP 12/22/2024 Telephone [facility] Pulmonary [address] [facility] Medicine 8th [place] [phone] Luc Biswas, LACEY 12/22/2024 Orders Only [facility] Pulmonary [address] [facility] 8th [place] [address] [place] [phone] Luc Biswas, LACEY 12/11/2024 Orders Only [facility] ENT [address] [facility] Office Building [address] [place] [phone] Liz Blanco MD 12/08/2024 12:34 PM PLANT FACILITIES TECHNICIAN - 12/08/2024 11:59 PM PLANT FACILITIES TECHNICIAN Hospital Encounter [facility] Imaging [address] [place] [address] Wheezing Discharge Disposition: Discharge to home or self care 12/08/2024 Orders Only [facility] Medical Group Primary Care at [address] [phone] Dunia Cano NP 12/08/2024 1:00 PM PLANT FACILITIES TECHNICIAN Office Visit [facility] Pulmonary [address] [facility] Office Building 2 [address] [place] [phone] Jack Roth MD Moderate persistent asthma without complication (Primary Dx); Tracheostomy dependence (HCC); Recurrent pneumonia 12/08/2024 10:45 AM PLANT FACILITIES TECHNICIAN - 12/08/2024 11:59 PM PLANT FACILITIES TECHNICIAN Hospital Encounter [facility] PFT Lab [address] [facility] Office Building [address] [place] [phone] Wheezing Discharge Disposition: Discharge to home or self care 12/04/2024 Orders Only [facility] ENT [address] [facility] Office Building [address] [place] [phone] Liz Blanco MD Tracheostomy dependence (HCC) (Primary Dx) 12/04/2024 2:20 PM PLANT FACILITIES TECHNICIAN Office Visit [facility] ENT [address] [facility] Medical Office Building [address] [place] [address] Liz Blanco MD Tracheostomy dependence (HCC) (Primary Dx); Wheezing; Obesity, unspecified class, unspecified obesity type, unspecified whether serious comorbidity present; Other specified diabetes mellitus with other specified complication, unspecified whether nursing home insulin use (HCC) 11/25/2024 Telephone [facility] Primary Care at [address] [phone] Dunia Cano NP 11/24/2024 2:40 PM PLANT FACILITIES TECHNICIAN - 11/24/2024 11:59 PM PLANT FACILITIES TECHNICIAN Hospital Encounter [address] [address] Wheezing; Severe persistent asthma with exacerbation (HCC) Discharge Disposition: Discharge to home or self care 11/24/2024 Telephone [facility] Diabetes and Endocrinology [address] [place] [phone] Shelley Whitt MD 11/24/2024 2:45 PM PLANT FACILITIES TECHNICIAN Lab [facility] Outpatient Lab at [address] [phone] Thyroid nodule (Primary Dx); Wheezing 11/24/2024 2:45 PM PLANT FACILITIES TECHNICIAN Ancillary Procedure [facility] Imaging at [address] [phone] 11/24/2024 1:45 PM PLANT FACILITIES TECHNICIAN Office Visit [facility] Primary Care at [address] [phone] Jaspreet Junior MD Wheezing (Primary Dx); Severe persistent asthma with exacerbation (HCC) 10/23/2024 4:29 PM PLANT FACILITIES TECHNICIAN - 10/23/2024 11:59 PM PLANT FACILITIES TECHNICIAN Hospital Encounter [address] [address] Type 1 diabetes mellitus not at goal (HCC) Discharge Disposition: Discharge to home or self care 10/23/2024 Telephone [facility] Primary Care at [address] [phone] Dunia Cano NP Authorization/Certif ication 10/23/2024 3:30 PM PLANT FACILITIES TECHNICIAN Office Visit [facility] Specialists of [address] [place] [address] Shelley Whitt MD Type 1 diabetes mellitus with hyperglycemia (HCC) (Primary Dx); Class 2 severe obesity due to excess calories with serious comorbidity and body mass index (BMI) of 39.0 to 39.9 in adult (HCC) 10/16/2024 2:00 PM PLANT FACILITIES TECHNICIAN Office Visit [facility] Nephrology [address] [place] [address] 5th [place] [phone] Stage 3a chronic kidney disease (HCC) (Primary Dx) 10/15/2024 Orders Only [facility] Scanning, Provider 10/15/2024 1:45 PM PLANT FACILITIES TECHNICIAN Ancillary Procedure [facility] Cardiology [facility] 8th [place] [address] [place] [phone] Palpitations 10/15/2024 Orders Only [facility] Cardiology [facility] Medical Office Building [address] [place] [address] Tanvir Graves MD Palpitations (Primary Dx) 10/14/2024 1:30 PM PLANT FACILITIES TECHNICIAN Office Visit [facility] Cardiology [address] [facility] Medical Office Building [address] [place] [phone] Tanvir Graves MD Palpitations (Primary Dx); Acute on chronic diastolic congestive heart failure (HCC); Coronary artery disease involving [place] coronary artery of [place] heart without angina pectoris from Last 3 Months Allergies Active Allergy Reactions Criticality Noted Date Comments Propoxyphene N-Acetaminophen Itching Low 06/27/2006 Doxycycline Other (See comments) Low 06/26/2023 nausea Lisinopril Unknown 09/08/2021 Topiramate Mental status changes Low 07/04/2024 Causes suicidal ideation Medications sodium chloride 0.9 % nebulizer solutionIndicati ons:Tracheostomy , acute management (HCC) Apply 5 mL topically as needed for other (trach irrigation) 500 mL 1 024 2024 Active acetaminophen 500 mg capsule Take 2 capsules (1,000 mg total) by mouth every 6 (six) hours Active glucagon 1 mg kit Inject 1 mL (1 mg total) into the muscle as instructed every 30 (thirty) minutes as needed (blood glucose less than 70 mg/dL AND no IV access AND unable to take PO glucose/juice.) Active guaiFENesin (ROBITUSSIN) syrup 100 mg/5 mL Take 10 mL (200 mg total) by mouth every 6 (six) hours as needed for cough Active polyethylene glycol (MIRALAX) 17 gram packet Take 1 packet (17 g total) by mouth daily as needed for constipation Active rOPINIRole (REQUIP) 0.25 mg tablet Take 1 tablet (0.25 mg total) by mouth nightly as needed (restless legs) 30 tablet 2 Active multivitamin with folic acid 400 mcg tablet Take 1 tablet by mouth daily 30 tablet 11 024 2024 Active magnesium oxide (MAG-OX) 400 mg (241.3 mg elemental magnesium) tablet Take 1 tablet (400 mg total) by mouth 2 (two) times a day 60 tablet 024 2024 Active atorvastatin (LIPITOR) 40 mg tablet Take 1 tablet (40 mg total) by mouth daily 30 tablet 024 2024 Active isosorbide mononitrate ER (IMDUR) 60 mg 24 hr tablet Take 1 tablet (60 mg total) by mouth every morning 30 tablet 11 024 2024 Active albuterol HFA (PROVENTIL HFA,VENTOLIN HFA,PROAIR HFA) 90 mcg/actuation inhaler Inhale 2 puffs every 6 (six) hours as needed for wheezing 3 each 4 024 2024 Active clotrimazole 1 % cream Apply topically 2 (two) times a day 30 g 1 Active insulin pump cart,auto,BT,G6/ 7 (Omnipod 5 G6-G7 Pods, Gen 5,) cartridge Change pod every 3 days 60 each 3 024 Active lansoprazole (PREVACID) 30 mg capsuleIndicatio ns:Gastroesophag eal reflux disease, unspecified whether esophagitis present Take 1 capsule (30 mg total) by mouth daily 90 capsule 1 Active tiotropium bromide (SPIRIVA RESPIMAT) 2.5 mcg/actuation inhaler Inhale 2 puffs daily 1 g 3 024 Active gabapentin (NEURONTIN) 100 mg capsule TAKE 2 CAPSULES(200 MG) BY MOUTH THREE TIMES DAILY 270 capsule 1 Active Additional Information Patient taking differently: 100 mg oral 3 times daily, Reported on 12/08/2024 aspirin 81 mg enteric coated tablet TAKE 1 TABLET BY MOUTH EVERY MORNING 90 tablet 1 Active furosemide (LASIX) 40 mg tablet Take 1 tablet (40 mg total) by mouth 2 (two) times a day 180 tablet 3 024 2024 Active metOLazone (ZAROXOLYN) 2.5 mg tablet Take 1 tablet (2.5 mg total) by mouth as needed (for weight gain of 2-3lb) 30 tablet Active clopidogreL (PLAVIX) 75 mg tablet Take 1 tablet (75 mg total) by mouth daily 30 tablet 11 024 2024 Active Dexcom G6 Transmitter deviceIndication s:Type 1 diabetes mellitus with hyperglycemia (HCC) CHANGE TRANSMITTER EVERY 90 DAYS 1 each 3 024 Active Dexcom G6 Sensor deviceIndication s:Type 1 diabetes mellitus with hyperglycemia (HCC) CHANGE SENSOR EVERY 10 DAYS 3 each 11 024 Active losartan (COZAAR) 50 mg tablet Take 1 tablet (50 mg total) by mouth daily 30 tablet 11 025 2025 Active vortioxetine (TRINTELLIX) 5 mg tabletIndication s:major depressive disorder Take 1 tablet (5 mg total) by mouth daily 90 tablet 1 025 Active carvediloL (COREG) 25 mg tabletIndication s:Heart palpitations,Renee yrn hypertension Take 1 tablet (25 mg total) by mouth 2 (two) times a day with meals 180 tablet 1 025 Active clonazePAM (KlonoPIN) 0.5 mg tablet TAKE 1 TABLET(0.5 MG) BY MOUTH TWICE DAILY NEEDED FOR ANXIETY 60 tablet 025 Active revefenacin (Yupelri) 175 mcg/3 mL solution for nebulizationIndi cations:Chronic Obstructive Pulmonary Disease Inhale 175 mcg daily 90 mL 11 Active inhalational spacing device spacer 1 Units 2 (two) times a day 1 each Active budesonide-formo teroL (SYMBICORT) 80-4.5 mcg/actuation inhalerIndicatio ns:Maintenance Therapy for Asthma Inhale 2 puffs 2 (two) times a day Rinse mouth with water after use. Do not swallow. 10.2 g Active HumaLOG 100 unit/mL vial for injectionIndicat ions:Type 1 diabetes mellitus with diabetic peripheral angiopathy without gangrene (HCC) ADMINISTER UP TO 100 UNITS UNDER THE SKIN DAILY 20 mL 1 025 Active traZODone (DESYREL) 100 mg tabletIndication s:REGINALD (generalized anxiety disorder) TAKE 1 TABLET(100 MG) BY MOUTH EVERY NIGHT 90 tablet 3 025 Active venlafaxine XR (EFFEXOR-XR) 150 mg 24 hr capsuleIndicatio ns:Major depressive disorder with single episode, in full remission TAKE 1 CAPSULE(150 MG) BY MOUTH EVERY MORNING 90 capsule 1 025 Active tirzepatide, weight loss, (Zepbound) 2.5 mg/0.5 mL pen injectorIndicati ons:Class 2 severe obesity due to excess calories with serious comorbidity and body mass index (BMI) of 39.0 to 39.9 in adult (HCC),Type 1 diabetes mellitus with hyperglycemia (HCC),Type 1 diabetes mellitus with diabetic peripheral angiopathy without gangrene (HCC) Inject 0.5 mL (2.5 mg total) under the skin every 7 days 2 mL 025 Active amLODIPine (NORVASC) 10 mg tablet Take 1 tablet (10 mg total) by mouth daily 90 tablet 2 025 Active traZODone (DESYREL) 100 mg tabletIndication s:REGINALD (generalized anxiety disorder) Take 1 tablet (100 mg total) by mouth nightly 90 tablet 3 024 2024 Discontinued amLODIPine (NORVASC) 10 mg tablet TAKE 1 TABLET(10 MG) BY MOUTH DAILY 90 tablet 2 024 2024 Discontinued(R eorder) venlafaxine XR (EFFEXOR-XR) 150 mg 24 hr capsuleIndicatio ns:Major depressive disorder with single episode, in full remission TAKE 1 CAPSULE(150 MG) BY MOUTH EVERY MORNING 90 capsule 1 024 2024 Discontinued dulaglutide (TRULICITY) 0.75 mg/0.5 mL pen injectorIndicati ons:Type 1 diabetes mellitus with hyperglycemia (HCC) Inject 0.5 mL (0.75 mg total) under the skin every 7 days 2 mL 2 024 2024 Discontinued(T herapy completed) amoxicillin (AMOXIL) 500 mg tablet/capsule Take 1 tablet/capsule (500 mg total) by mouth 3 (three) times a day for 10 days 30 tablet/caps ule 025 2024 HumaLOG 100 unit/mL vial for injectionIndicat ions:Type 1 diabetes mellitus with diabetic peripheral angiopathy without gangrene (HCC) ADMINISTER UP TO 100 UNITS UNDER THE SKIN DAILY 20 mL 025 2024 Discontinued arformoteroL (BROVANA) 15 mcg/2 mL nebulizer solutionIndicati ons:Bronchospasm Prevention with COPD Take 2 mL (15 mcg total) by nebulization 2 (two) times a day 120 mL 11 025 2024 Discontinued(A lternate therapy) budesonide (PULMICORT) 0.5 mg/2 mL nebulizer solutionIndicati ons:Maintenance Therapy for Asthma Take 2 mL (0.5 mg total) by nebulization 2 (two) times a day Rinse mouth with water after use. Do not swallow. 120 mL 11 025 2024 Discontinued(A lternate therapy) semaglutide (WEGOVY) 0.25 mg/0.5 mL auto-injectorInd ications:Class 2 severe obesity due to excess calories with serious comorbidity and body mass index (BMI) of 39.0 to 39.9 in adult (HCC) Inject 0.25 mg sq weekly for 4 weeks than increase to 0.5 mg weekly 2 mL 3 025 2024 Discontinued(T herapy completed) semaglutide (Ozempic) 0.25 mg or 0.5 mg (2 mg/3 mL) pen injector injection Inject 0.25 mg under the skin once a week for 28 days, THEN 0.5 mg once a week for 14 days. 3 mL 025 2024 Discontinued nitrofurantoin monohydrate (MACROBID) 100 mg capsule Take 1 capsule (100 mg total) by mouth 2 (two) times a day for 7 days 14 capsule 025 2024 Active Problems Problem Noted Date Diagnosed Date Noncompliance 11/24/2024 Wheezing 11/24/2024 Assessment & Plan (11/24/2024 9:35 PM PLANT FACILITIES TECHNICIAN): Breztri trial; hold Symbicort and Spiriva while taking Breztri Prednisone course; it will cause the glucoses to go up, so it is important that you keep the insulin pump filled. If it is increasing, let us know PARVIZ (and Dr. Chavez too) Xray today; if sign of infection will add antibiotic course Labs as ordered, checking if inflammation at play with the swollen nodes. PFT needs to be scheduled soon CPAP (continuous positive airway pressure) nolberto ashton 09/25/2024 Assessment & Plan (09/25/2024 4:56 PM PLANT FACILITIES TECHNICIAN): Pt states using cpap for 8 hours/night 7 nights/wk Pt states less daytime somnolence, feels better when using it. Would recommend the continued use of cpap Shortness of breath 07/22/2024 Assessment & Plan (07/26/2024 9:52 AM CDT): Patient notably has hx PEA arrest in 11/2023 due to multifocal pneumonia, requiring trach placement on 12/07/23. Admitted again in 01/2024 for volume overload and increased secretions, tracheal aspirate grew MSSA and she received 7 days antibiotics, as well as diuresis with IV lasix. More recently patient was hospitalized at [facility] on 07/03/24 for volume overload and COVID-19 pneumonia, treated with IV lasix, Remdesivir, and steroids. V/Q scan on 07/07 was low probability for PE. She was discharged on 07/11 on prednisone that is finishing 07/23. She now re-presents with recurrent dyspnea and BLE edema. pBNP 935 (from 4.8k 2 weeks ago). CXR with bibasilar atelectasis. Lungs clear on exam. CT Chest noncon shows resolution of prior pneumonia, though R basilar atelectasis and focal small R upper airway mucus plugging. CT PE negative for PE, though did note chronic tracheobronchomalacia and small airway disease. BLE Doppler negative for DVT - Abx: s/p IV Vanc/Cefe - s/p IV Lasix BID PRN -> now back to home PO Lasix 40mg daily Acute respiratory failure with hypoxia Bilateral lower extremity edema 07/04/2024 Acute on chronic diastolic congestive heart fail ure 07/04/2024 Assessment & Plan (10/14/2024 4:17 PM PLANT FACILITIES TECHNICIAN): Continue Lasix, ARB, blood pressure control. Add metolazone as needed for weight gain. No SGLT2 inhibitor given type 1 diabetes. Assessment & Plan (09/18/2024 2:53 PM PLANT FACILITIES TECHNICIAN): Discussed monitoring weights, fluid intake. Recently increased to 40mg Lasix BID, she sees a lot of improvement in swelling. Patient to make follow up appt with Cardiology. Assessment & Plan (07/31/2024 3:10 PM CDT): Discussed monitoring weights, fluid intake. Discussed how recent steroid usage may be contributing to fluid retention. Scale at home not overly accurate. Will increase Lasix to 40 mg in the a.m. and 20 mg in the p.m. and recheck labs in 1 week. Patient to make follow up appt with Cardiology. Assessment & Plan (07/26/2024 9:54 AM CDT): Last 06/2024 TTE: normal LV function, without SWMA. Presented with worsened bilateral L>R lower extremity pitting edema, as well as dyspnea. Lungs clear on exam. NTpBNP 935 this presentation (from 4,854 on 07/07/24, 9,722 in 01/2024 and normal in 08/2023). - Diuresis: transitioning back to home PO Lasix Strict Is and Os, daily weights - GDMT: continue home Coreg 25 BID; starting Jardiance 10mg as SGLT2-inhibitor Consider GLP-1 agonist as well as possible MRA as outpatient Hyperglycemia due to type 1 diabetes mellitus Assessment & Plan (09/18/2024 3:27 PM PLANT FACILITIES TECHNICIAN): Uncontrolled, last A1c 9.3. Sees endocrinology in October. Assessment & Plan (07/31/2024 3:16 PM CDT): Uncontrolled, last A1c 9.3. She cancelled her Endo appt yesterday d/t being in the ER late. Referral placed to ENDO in our building. Recurrent pneumonia 07/03/2024 Tracheostomy dependence 03/06/2024 Assessment & Plan (07/22/2024 9:05 PM CDT): admitted from 11/23-12/18 for PEA arrest, multifocal PNA requiring trach placement, JOHN PAUL on CKD requiring INTRAOPERATIVE NEURO TECH and CAD s/p LHC with JAQUELIN x2 to the mid LAD and proximal RCA. She had trach placed on 12/07 and was vent dependent. She was admitted at [place] in 01/2024 with increasing volume overload, increased tracheal secretions hyponatremia, and JOHN PAUL. Her CT scan on 01/07 that was notable for bilateral [id number] pleural effusions with diffuse groundglass opacities and consolidations with interlobular septal thickening likely representing moderate to severe pulmonary edema. Tracheal aspirate on 01/12/24 was notable for MSSA (s/p 7 days abx). CXR on admission to [facility] on 01/13 showed moderate pulmonary edema and bilateral small pleural effusions. She was started on a nitro gtt. Nephrology was consulted in the ED d/t concern for worsening JOHN PAUL and volume overload. She was weaned off her Vent and admitted later to PPCU for rehabilitation and trach weaning until she was capped later per protocol. She was discharged from PPCU on 02/20/24. Assessment & Plan (05/19/2024 3:10 PM CDT): Patient has a mobility limitation that significantly impairs ability to participate in one or more mobility-related activities of daily living (MRADLs) such as toileting, feeding, dressing, grooming, and bathing in customary locations in the home. Patient's mobility limitation cannot be sufficiently resolved by the use of an appropriately fitted cane or walker. Use of a manual wheelchair will significantly improve the patient's ability to participate in MRADLs and the patient will use it on a regular basis in the home. Patient has a caregiver who is available, willing, and able to provide assistance with the wheelchair. Assessment & Plan (03/21/2024 12:38 PM CDT): Continues following with ENT. Chronic pain of left knee 02/15/2024 CAD (coronary artery disease) 01/24/2024 Assessment & Plan (10/14/2024 4:17 PM PLANT FACILITIES TECHNICIAN): Continue dual antiplatelet therapy, statin. Start monotherapy in December 1 year post ACS event Assessment & Plan (07/23/2024 1:52 PM CDT): s/p LHC in 11/2023 with JAQUELIN x2 to the mid LAD and proximal RCA. Last TTE 06/2024 with normal EF 65-70%. - Continue home aspirin, statin, Coreg, and IMDUR Assessment & Plan (06/19/2024 3:02 PM CDT): Continuing Atorvastatin, Plavix, ASA, and Coreg New referral placed to Cardiology. Bilateral lower leg edema noted, denies SOB. Will get some labs and may need to adjust the Lasix. Assessment & Plan (03/21/2024 12:40 PM CDT): Continuing Atorvastatin, Plavix, ASA, and Coreg Referral placed to Cardiology. Assessment & Plan (02/20/2024 11:13 AM CDT): CAD/ HFrecEF: TTE 11/24 unremarkable however during cardiac cath on 12/10 noted LV dysfunction with elevated LVEDP and hypo/akinesis anterior wall. LHC with 95% stenosis mid LAD s/p JAQUELIN and 99% stenosis prox RCA s/p JAQUELIN. Repeat TTE 01/17/24 with recovered EF: 69%. Continue ASA, atovastatin, Plavix, Coreg 25 BID. Diuresis with lasix. Add imdur 30mg daily 02/19. Anemia 01/24/2024 Assessment & Plan (02/09/2024 10:45 AM CDT): Hgb 8.2 on arrival. Baseline 7-8. Suspect AoC disease vs TAMIKO. Give IV Iron 01/18 for repletion. Monitor CBC trends. Restless legs 01/24/2024 Assessment & Plan (01/24/2024 2:34 PM CDT): on ropinirole at hs Dysphagia 01/24/2024 Assessment & Plan (01/26/2024 10:17 AM CDT): FEN/ Dysphagia/GERD: passed FEES per REMEDIAL PROJECT MANAGER on 01/19 for nectar thick liquids, reg solids, Consistent carbs, with snack, monitor and replace electrolytes. Ice chips and sips water between meals. Per ENT c/s start PPI BID. HOB upright with meals. MBS 01/24 advanced to regular liquids. Class 2 severe obesity due t o excess calories with serious comorbidity and body mass index (BMI) of 39.0 to 39.9 in adult 09/26/2022 Assessment & Plan (10/28/2024 8:05 PM PLANT FACILITIES TECHNICIAN): Chronic, worsening Discussed about healthy lifestyle habits advise to work on healthy diet, avoid processed foods , increase vegetables and protein and cut back on carb portions and also avoid fruit juices and regular soda and desserts Increase physical activity , recommend at least 150 min of aerobic activity per week and include resistance training 2 x weekly Assessment & Plan (07/31/2024 3:17 PM CDT): Discussed daily weight monitoring. Assessment & Plan (07/22/2024 9:03 PM CDT): BMI 39.8 Assessment & Plan (08/16/2023 10:28 AM CDT): Healthy, low carbohydrate lifestyle and exercise for 150min/week recommended. Moderate recurrent major depression 12/06/2021 Assessment & Plan (09/18/2024 3:27 PM PLANT FACILITIES TECHNICIAN): As above. Assessment & Plan (06/19/2024 3:01 PM CDT): Has slightly worsened over the past 3 weeks d/t family members recent passing. Will monitor but no medication changes today. Atherosclerosis of [place] ar carolyn of both lower extremities with intermittent claudication 10/05/2021 Assessment & Plan (06/19/2024 3:02 PM CDT): New referral to Vascular has been placed already. Encouraged to make this appt. Assessment & Plan (10/06/2021 12:41 PM PLANT FACILITIES TECHNICIAN): Impression: Nondisabling claudication of both lower extremities left greater than right with evidence of mild to moderate lower extremity distal ischemia. No rest pain or ulcerations. Plan: Recommend proceeding with conservative treatment including risk factor modifications controlling her diabetes, hypertension and hyperlipidemia over surgically intervening. The patient agrees with treatment plan. I recommended following up in 6 months for re-evaluation. Type 1 diabetes mellitus not at goal 05/20/2021 Assessment & Plan (10/28/2024 8:06 PM PLANT FACILITIES TECHNICIAN): , uncontrolled, worsening Hemoglobin A1c 10.5% Goal A1c less than 7% without hypoglycemia Patient complains of ongoing weight gain Counseled on diet and exercise Advised to keep her insulin pump in auto mode Adjusted blood sugar target to 120-130 Active insulin time and tested 2 hours Add GLP 1 agonist therapy with Trulicity to 0.75 mg subQ weekly Assessment & Plan (07/23/2024 1:49 PM CDT): HBA1C on 06/19/24 was 9.3%. On home insulin pump. 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 Plan: Medications reviewed I recommend continuing daily statin regimen as directed by patient's primary care physician. Thyroid nodule 05/26/2017 Assessment & Plan (08/16/2023 10:24 AM CDT): Last ultrasound took place 04/2022, updated ultrasound ordered Stage 3a chronic kidney disease 03/04/2017 Assessment & Plan (09/18/2024 3:29 PM PLANT FACILITIES TECHNICIAN): Stable. Follows with nephrology. Assessment & Plan (07/26/2024 9:54 AM CDT): Per chart review, baseline creatinine is 1.4-1.6 since 2020. Had JOHN PAUL on CKD requiring INTRAOPERATIVE NEURO TECH in 11/2023 with recovery of renal function. Initial Creat this admission 1.62, at baseline. UA negative. - continue diuresis as above - starting SGLT2 inhibitor on discharge - consider starting ACEi/ARB as outpatient once renal function improved Assessment & Plan (06/19/2024 3:01 PM CDT): Updated labs ordered, new referral to Nephrology sent. Assessment & Plan (03/21/2024 12:39 PM CDT): Labs drawn 2 weeks ago, renal function appears to be back at baseline. Referral placed to Nephrology. Assessment & Plan (02/21/2024 11:04 AM CDT): JOHN PAUL on CKD: CKD likely 2/2 to HTN and DM. Recently required INTRAOPERATIVE NEURO TECH from 11/26 to approx 12/10. Cr at time of DC 1.5. Cr on arrival 2.64. Renal ultrasound without hydronephrosis. Suspect 2/2 to volume overload vs HTN emergency. Improved to b/l on 01/19. Nephrology consult signed-off. Renally dose medications. Limit nephrotoxins. Strict I/O's. Cr: 3.21 on 01/30. Likely 2/2 hypervolemia. Increased lasix to 40mg IV BID. Diuresing well. Change to lasix 40mg BID oral starting 02/04. 02/05 hold with JOHN PAUL and monitor. Cr=1.92 02/06. Plan resume lasix 40mg daily 02/07. Cr=1.70 02/07-monitor with resumption of lasix. Cr=1.82 02/09. Check BMP in am-Cr=1.63. Monitor. Creatinine stable at 1.68 02/20. Assessment & Plan (08/16/2023 10:25 AM CDT): Has upcoming appointment with Criminal Investigative Agent 08/21/23. Considered adjusting BP medications but Nephrology has been managing so will hold off. 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 Continue home Trazodone 100mg nightly, Venlafaxine 150mg daily. Will trial Trintellix 5mg in addition. Assessment & Plan (07/23/2024 1:50 PM CDT): - continue home Trazodone 100mg nightly, Venlafaxine 150mg daily. Assessment & Plan (02/10/2024 11:18 AM CDT): Insomnia: Venlafaxine XR 187.5 daily, Xanax 0.5mg TID PRN, Trazodone 100 po qhs, monitor mood, prn ramelteon. Resume home wellbutrin 150mg BID and clonazepam 0.5mg BID and monitor. DC Xanax. 02/04 still very anxious with breathing/rehab-trial increase klonopin to 1mg BID and monitor. Decrease venlafaxine XR to 150mg 02/06 with renal fxn. Tapered off wellbutrin 02/09. C/O sleepiness since starting clonidine. Decrease clonazepam to 0.5mg BID 02/09 and monitor. Assessment & Plan (08/16/2023 10:28 AM CDT): Not at goal d/t living situation and life stressors. Has been on Clonazepam for many years. Will increase Venlafaxine, adding in 37.5 mg with her 150 mg daily. Overall goal would be to wean from the Clonazepam. Patient agreeable to Psychiatry. [place] information provided for patient to start getting established. Patient's insurance limits referral options. Assessment & Plan (09/26/2022 11:09 AM PLANT FACILITIES TECHNICIAN): Discussed her clonazepam because she reports issues with memory, Has been on this for 15 years We will need to wean off this slowly and attempt other medications for REGINALD Needs CBT for this as well, encouraged to reach out to counselor IUD (intrauterine device) in place 05/04/2015 Overview (09/08/2021): Overview: Mirena IUD 05/04/15 Mirena IUD 05/04/15 Diabetic retinopathy 03/03/2014 Benign essential hypertension 12/15/2013 Assessment & Plan (09/18/2024 2:54 PM PLANT FACILITIES TECHNICIAN): BP overall controlled in office today. Assessment & Plan (07/26/2024 9:54 AM CDT): Has been consistently hypertensive this admission, up to 190s/70s. - continuing home Coreg, IMDUR, Amlodipine, Clonidine - started Hydral TID - consider starting ACEi/ARB as outpatient, with additional benefit given CKD and HFpEF Assessment & Plan (08/16/2023 10:25 AM CDT): Has upcoming appointment with Criminal Investigative Agent 08/21/23. Considered adjusting BP medications but Nephrology has been managing so will hold off. Assessment & Plan (10/05/2021 2:11 PM PLANT FACILITIES TECHNICIAN): Impression: Stable chronic hypertension. Plan: Medications reviewed and recommend continuing daily antihypertensive regimen as directed by patient's primary care physician. GERD (gastroesophageal reflux disease) 2 Assessment & Plan (07/23/2024 1:50 PM CDT): - continue home PPI Pure hypercholesterolemia 12/10/2010 Asthma 12/09/2010 Assessment & Plan (07/24/2024 10:15 AM CDT): - Continue home LAMA, LABA, and ICA inhalers - s/p prednisone course Assessment & Plan (02/10/2024 11:09 AM CDT): albuterol nebs prn, smoking cessation, resume wellbutrin-taper to 100mg BID 02/05, 75mg BID 02/07, 50 BID 02/08, DC /. Assessment & Plan (08/16/2023 8:35 AM CDT): Uses prn inhaler about once every 6 months. HTN (hypertension) 12/09/2010 Assessment & Plan (02/24/2024 10:09 AM CDT): MAP to 119 in the ED. Home meds: coreg 25 BID and amlo 10. S/p Nitro, Nicardipine gtt on MICU presentation (weaned 01/15/24). Continue home coreg and amlodipine, and oral hydralazine 25 mg q8h and dose increased to 50 mg on 01/22. BP stable. Add HCTZ 12.5mg daily 01/24. Increase to home dose 25mg qam 01/26. Increased hydralazine to 100mg TID on 01/29. Diuretic changed to Lasix 40mg IV BID. Change to lasix 40mg BID oral starting 02/04-hold with JOHN PAUL. Resume lasix 40mg daily 02/07. DC norvasc with LE edema and start clonidine 0.1mg TID with plan to eventually change to patch. 02/08 decrease hydralazine to 50mg q8/DC imdur and increase clonidine to 0.2mg TID. 02/09 DC hydralazine and monitor. Patient c/o sleepiness-?related to clonidine- monitor. Better this am. Switch to catapres TTS -2 patch 02/10. Continue to monitor. Worsened after steroid injection on 02/14. Very liable ranging from 120s/60s - 170s/60s. Increase to Catapres TTS-3 02/18 and monitor. Imdur 30mg added-BP improved. Add norvasc 2.5mg qam 02/22 and increase to 5mg 02/23 and monitor. Assessment & Plan (09/26/2022 11:09 AM PLANT FACILITIES TECHNICIAN): Chronic stable Well controlled Continue current medications at current dose Tobacco use disorder 12/09/2010 Resolved Problems Problem Noted Date Diagnosed Date Resolved Date UTI (urinary tract infection) 02/12/2024 02/19/2024 Assessment & Plan (02/13/2024 7:47 AM CDT): - UCx: E. Coli on 02/07 - Resistant to cipro. D/c'd cipro and started on keflex (02/11- 02/15) Tracheostomy, acute management 01/24/2024 07/04/2024 Assessment & Plan (01/28/2024 1:10 PM CDT): 44YO w recent PEA arrest and ICU stay with prolonged ventilator wean req trach re-admitted from [facility] with volume overload and MSSA tracheitis. Now s/p diuresis and abx in MICU tolerating HHTC x24H and transferred to PPCU for trach wean, rehab. Of note, ENT was also consulted for findings on her FEES, including a collapsed L arytenoid. Per ENT note, 01/21/24 there is concern for arytenoid hooding and posterior glottic scarring from prior intubation. On exam she is a mallanpatti IV. Current trach: Oma 6 PLAN: -can continue with HHTC and trach wean/downsizing as tolerated -anticipate need for continued trach at discharge with ENT follow-up for decannulation given difficulties with capping and finger occlusion thus far -Suspect patient has SOFIA based on MP IV exam and +snoring history, would benefit from OP sleep study following decannulation. Can be ordered by PCP, discussed with patient -Continue PT/OT/rehab per PPCU team -We will sign off Tracheitis due to Staphylococcus infection 01/24/2024 02/05/2024 Assessment & Plan (01/26/2024 10:15 AM CDT): MSSA Tracheitis (resolved)/ Leukocytosis (improved): increased secretions at LTAC. Trach aspirate 01/11 with >100k MSSA. WBC up-trended to 25.7. Was treated with IV antibiotics vanc/cefe/flagyl at LTAC, Vanc trough on 01/13 elevated to 33. Trach aspirate here with MSSA but clinically insignificant growth. ABx: Vancomycin (01/11 - 01/13) -> Cefepime (01/14) -> Cefazolin (01/16-01/17) to complete 7-day course. Hyponatremia 01/24/2024 07/04/2024 Assessment & Plan (02/21/2024 11:05 AM CDT): (resolved): Na 115 on 01/13 @0400. Repeat 124>118. Suspect 2/2 to hypervolemia. Improved to 134 on 01/17/24 with fluid restriction, diruesis. Monitor Na daily. Continue Fluid restriction, diuresis as above. 02/17: pseudohyponatremia 2/2 hyperglycemia. Monitor. Lu=706 02/20. Physical deconditioning 01/24/2024 08/ Assessment & Plan (06/19/2024 3:03 PM CDT): Continuing with PT once weekly. Discussed arthralgias, will increase the Gabapentin to 200 mg TID. NSAIDS note ideal given the Plavix. Assessment & Plan (03/21/2024 12:39 PM CDT): Continues, patient would benefit from PT. Home health ordered to help build back her strength. Assessment & Plan (02/24/2024 10:10 AM CDT): PT 01/20 performed max assist to stand, mod assist x2 to stand and step, PT 18 stood with min A x 2 to assist with force production and balance; x 1 rep from EOB, pt declined further reps due to L foot pain. OOBTC for all meals and use zendejas cushion, Continue OT, add routine services. Turn and reposition with patient assisting every 2 hrs. Asked for patient and to obtain tennis shoes to have more support when standing. Educated patient on importance of rehab and need for regularly working with with rehab and she is agreeable. Fall precautions with bed and chair alarm as well as abdominal wrap when in chair to remind patient to stay in chair. 01/23 sit to stands 10 reps. Stood for 30 seconds each stand. 01/24 12 reps. Worked on calf raises, knee bends, stepping forward/backward and marching in parallel bars. 02/03 PFW x 120ft with 4 breaks. 02/04 PFW 10+5+10ft. 02/05 PFW 282ft with 14 breaks. Consult PM&R- recommended knee brace/voltaren/lidoderm patch. 02/06 PFW 360ft with 12 breaks. 02/07 PFW 360ft with 10 breaks. 02/09 PFW 100ft with 7 breaks. Walking with platform walker. Discussed case with PM&R and they recommend TRISL. Unclear etiology for left knee pain. PM&R states MRI would not mold insert changer. S/p steroid injection on 02/14. Left knee pain improved. 02/18 PFW 180ft with 6 breaks. 02/19 36ft x 10. 02/20 90ft x 0=144qd. 02/22 WW x 50ft x 6. Pain 01/24/2024 07/04/2024 Assessment & Plan (02/15/2024 12:09 PM CDT): Complains of left knee pain. Xray negative for fractures. PM&R consulted. Plan for steroid injection today by PM&R. On tylenol prn and norco prn No contraindication to deep vein thrombosis (DVT) prophylaxis 01/24/2024 07/04/2024 Assessment & Plan (01/24/2024 2:39 PM CDT): (last LED neg 01/14): 5000 units SQH q8 Yeast infection 01/24/2024 07/04/2024 Assessment & Plan (02/09/2024 10:46 AM CDT): Topical Yeast: miconazole powder 2% to areas, vaginal/anal itching: treated with anusol cream and diflucan Acute on chronic respiratory failure 01/24/2024 07/04/2024 Assessment & Plan (05/19/2024 3:10 PM CDT): Patient has a mobility limitation that significantly impairs ability to participate in one or more mobility-related activities of daily living (MRADLs) such as toileting, feeding, dressing, grooming, and bathing in customary locations in the home. Patient's mobility limitation cannot be sufficiently resolved by the use of an appropriately fitted cane or walker. Use of a manual wheelchair will significantly improve the patient's ability to participate in MRADLs and the patient will use it on a regular basis in the home. Patient has a caregiver who is available, willing, and able to provide assistance with the wheelchair. Assessment & Plan (03/21/2024 12:41 PM CDT): Patient in need of her nebulizer supplies since have pneumonia, also hx asthma present. Will order as patient does occasionally become SOB. Assessment & Plan (02/19/2024 11:58 AM CDT): PEA arrest on 11/23 iso severe multifocal PNA and hyperkalemia. Developed chronic respiratory failure and had Trach #6 prox XLT placed. Transferred to LTAC and readmitted still on ventilator 01/13. Currently has #7 Bivona TTS. Ventilator settings were AC/VC 16/500/8/50, progressed to PSV and weaned off ventilator on 01/19 to HHTC with VBG 7.42/40 on 01/20 am. Trach collar 24hr as tolerated, REMEDIAL PROJECT MANAGER FEES 01/19 noted collapsed L aretenoid, R vocal cord polyp/lesion so ENT consulted. ENT recommended PPI BID and outpatient visit. On exam on tx to PPCU 01/22 is noted to have stridor with use of PMSV. ENT scoped 01/23 and recommended downsizing trach and trial of capping. If tolerates can decannulate as per PPCU protocol. If fails will need to keep trach(#6 shiley uncuffed) until seen by outpatient ENT. 01/24 trial downsize to #6 bivona TTS(same outer diameter as #4shiley)-unable to cap so changed to #6 uncuffed shiley per ENT recommendation. As per ENT, Neck CT is negative for subglottic stenosis. She can follow up with our laryngology clinic as an outpatient. Trach exchanged to Shiley XL, Proximal, Cuffless #5 on 01/31. [place] sob 02/04 am. Improved with albuterol neb. Check CXR-NAD. did trach change 02/18. Acute pulmonary edema 01/14/20242023 Assessment & Plan (02/10/2024 11:12 AM CDT): p/w weeks of progressive volume overload and pulmonary edema. CXR with moderate pulmonary edema. Recent Chest CT on 01/07 with bilateral [id number]-[id number] pleural effusions with [id number] pulmonary edema. BNP 9.7k (b/l 150). Trop 11>10>12. Suspect /2 to HF exacerbation vs less likely acute renal failure. Recent TTE 11/24 unremarkable however during cardiac cath on 12/10 noted LV dysfunction with elevated LVEDP and hypo/akinesis anterior wall. S/p Lasix 80 IV in ED with 1500 UOP. S/p Nitro, Nicardipine gtt on MICU presentation. TTE 01/16 (poor windows) with LVEF 69%. Improved volume status s/p IV diuresis. Diurese with Lasix 40mg PO daily for FBG even to negative, Trend K, Mg. DC lasix and add HCTZ on 01/24. Given her hyponatremia and re accumulation of swelling in her ankles, restarted lasix 40mg PO daily and stopped HCTZ on 01/29. Complains of worsening shortness of breath on 01/30 and CXR shows more pulmonary congestion. Increased lasix to 40mg IV BID. Diuresing well. Change to lasix 40mg BID oral starting 02/04. Hold 02/05-CXR clear, and monitor. Resume lasix 40mg daily 02/07 and monitor. Heart palpitations 02/10/2022 Bursitis of shoulder 09/08/2021 022 Headache 09/08/2021 07/04/2024 Assessment & Plan (08/16/2023 10:26 AM CDT): Patient used to see Neurology and receive Botox injections and has tried multiple medications with not much success. New Neuro referral placed. Bereavement, uncomplicated 12/10/2020 0 02/10/2022 Nicotine dependence 03/10/2017 02/11/20 22 At risk of disease 03/02/2016 2 Recurrent loss, currently 5 02/10/2022 Migraine 12/15/2013 02/10/2022 Constipation 09/02/2012 02/10/2022 Hyperkalemia 05/23/2012 02/10/2022 Renal insufficiency 12/24/2010 02/11/20 22 Type 1 diabetes mellitus 12/09/2010 Assessment & Plan (06/19/2024 3:00 PM CDT): Updated labs ordered. Patient set to see Endocrinology in July. Assessment & Plan (03/21/2024 12:38 PM CDT): A1c was 6.7 as of 01/15/24. Continues insulin pump. Referral placed to Endocrinology. Assessment & Plan (02/19/2024 11:57 AM CDT): (Most recent A1c 6.7%): Regimen: Lantus 35 BID, lispro 20 q6h. Borderline hypoglycemia on Lantus 28U BID + Lispro 10 q4hrs -> Lispro 5U q4hrs. Currently on Lantus 30U BID + 5U TIDAC + HDSSI [facility] Patient previously on omnipod insulin pump at home. Consulted endocrine/diabetes service to help with adjusting insulin off tube feeds and hopefully to resume pump. Decrease lantus to 30u daily and monitor insulin use. brought in pump supplies. DM service monitoring but patient very noncompliant with regimen. Restarted on insulin pump 01/28. Continue adjusting. Worsened after steroid injection on 02/14. Endo adjusting regimen. 02/17: Sugars in 400s-500s. Discussed case with endo, gave 9 units of regular insulin. Endo recommended another 3 units when sugar was 300 but pt refused. Will continue to monitor and adjust as per endo recs. Improving. Assessment & Plan (08/16/2023 10:24 AM CDT): Updated labs ordered, referral to Endocrinology placed also. Assessment & Plan (09/26/2022 11:10 AM PLANT FACILITIES TECHNICIAN): Needs insulin refill Well controlled Assessment & Plan (03/17/2022 4:35 PM CDT): Will start victiza to help with weight loss and glucose Assessment & Plan (10/05/2021 2:14 PM PLANT FACILITIES TECHNICIAN): Impression: Uncontrolled type 1 diabetes with current use of insulin pump. Most recent on 03/19 was 11.8%. Plan: Discussed with patient importance of glucose control and dietary modifications and the negative affects of her uncontrolled diabetes on her cardiovascular system specifically her lower extremity arterial occlusive disease. Immunizations Immunization Administration Dates Next Due H1N1 Inj 08/19/2010 Influenza, Quadrivalent, Spl it, Intramuscular 08/25/2020,09/23/2019 Influenza, Quadrivalent, Spl it, Preservative Free, Intramuscular 08/11/2021,09/03/2018 Influenza, Trivalent, IM (MDV) 09/22/2016,2012 Influenza, Trivalent, Preser vative Free, Intramuscular 09/18/2024,09/05/2005 Influenza, Unspecified 11/05/2023(Deferr ed: Patient Refused),11/05/2022(Deferred: Patient Refused),07/31/2022 Pneumococcal Conjugate Pcv20 06/19/2024 Pneumococcal Polysaccharide PPV23 09/05/2005 Tdap 06/19/2019 Social History Tobacco Use Types Packs/Day Years Used Date Smoking Tobacco: Former Cigarettes 0 11/14/2022 - 11/2023 Smokeless Tobacco: Never Tobacco Cessation:Counseling Given: Not Answered [facility] Utilities Answer Date Recorded In the past 12 months has [employer], gas, oil, or water [employer] threatened to shut off services in your home? No 07/04/2024 Social Connection and Isolat ion Panel [NHANES] Answer Date Recorded In a typical week, how many times do you talk on the phone with family, friends, or neighbors? More than three times a week 07/04/2024 How often do you get togethe r with friends or relatives? More than three times a week 07/04/2024 How often do you attend chur ch or congregational services? Never 07/04/2024 Do you belong to any clubs o r organizations such as gnosticist groups, unions, fraternal or athletic groups, or school groups? No 07/04/2024 How often do you attend meet ings of the clubs or organizations you belong to? Never 07/04/2024 Are you , , di vorced, , never , or living with a partner? 07/04/2024 AUDIT-C Answer Date Recorded Q1: How often do you have a drink containing alcohol? Never 12/08/2024 Q2: How many drinks containi ng alcohol do you have on a typical day when you are drinking? Patient does not drink Q3: How often do you have si x or more drinks on one occasion? Never 12/08/2024 Overall Financial Resource Strain (CARDIA) Answe r Date Recorded How hard is it for you to pa y for the very basics like food, housing, medical care, and heating? Not very hard 07/04/2024 PHQ-2 Answer Date Recorded PHQ-2 Total Score (If total score is 3 or more points, staff should administer the PHQ-9) 0 09/18/2024 Hunger Vital Sign Answer Date Recorded Within the past 12 months, y ou worried that your food would run out before you got the money to buy more. Never true 07/04/20 24 Within the past 12 months, t he food you bought just didn't last and you didn't have money to get more. Never true 07/04/2024 PRAPARE - Transportation Answer Date Re corded In the past 12 months, has l ack of transportation kept you from medical appointments or from getting medications? No 06/07 In the past 12 months, has l ack of transportation kept you from meetings, work, or from getting things needed for daily living? No 07/04/2024 Housing Stability Vital Sign Answer Mann e Recorded In the last 12 months, was t here a time when you were not able to pay the mortgage or rent on time? No 01/29/2024 In the last 12 months, how many places have you lived? 1 01/29/2024 In the last 12 months, was t here a time when you did not have a steady place to sleep or slept in a fdc (including now)? No 01/29/2024 PHQ-9 Answer Date Recorded PHQ-9 Total Score 14 06/19/2024 Housing Stability Vital Sign Answer Mann e Recorded In the last 12 months, was t here a time when you were not able to pay the mortgage or rent on time? No 07/04/2024 In the past 12 months, how m any times have you moved where you were living? 0 07/04/2024 At any time in the past 12 m [facility], were you homeless or living in a fdc (including now)? No 07/04/2024 Personal Safety Answer Date Recorded Have you ever been in or are you currently in a harmful physical or emotional relationship or is someone making you feel afraid or unsafe? Denies 07/29/2024 Comments No Sex and Gender Information Value Date Recorded Sex Assigned at Not on file Legal Sex Female 2:55 AM PLANT FACILITIES TECHNICIAN Gender Identity Not on file Sexual Orientation Not on file Last Filed Vital Signs Vital Sign Reading Time Taken Comments Blood Pressure 128/68 12/08/2024 1:07 PM PLANT FACILITIES TECHNICIAN Pulse 77 12/08/2024 1:07 PM PLANT FACILITIES TECHNICIAN Temperature 36.2 C (97.2 F) 12/08/2024 1:07 PM PLANT FACILITIES TECHNICIAN Respiratory Rate 20 11/24/2024 1:51 PM PLANT FACILITIES TECHNICIAN Oxygen Saturation 96% 11/24/2024 1:51 PM PLANT FACILITIES TECHNICIAN Inhaled Oxygen Concentration - - Weight 98.4 kg (217 lb) 12/08/2024 1:07 PM PLANT FACILITIES TECHNICIAN Height 157.5 cm (5' 2 ) 12/08/2024 1:07 PM PLANT FACILITIES TECHNICIAN Body Mass Index 39.69 12/08/2024 1:07 PM PLANT FACILITIES TECHNICIAN Plan of Treatment Not on file Medical Devices Implanted Type Area Oil Burner Technician Device Identifier Shelf Expiration Date Model / Serial / Lot Stent Stent Heart Procedures Procedure Name Priority Date/Time Associated Diagnosis Comments URINALYSIS, MICROSCOPIC ONLY Routine 12/31/2024 9:21 AM PLANT FACILITIES TECHNICIAN Burning with urination URINALYSIS AND REFLEX TO MICROSCOPIC AND CULTURE Routine 12/31/2024 9:21 AM PLANT FACILITIES TECHNICIAN Burning with urination XR CHEST PA LATERAL 2 VIEWS Schedule Routine, Read Routine (OP Routine) 12/08/2024 12:45 PM PLANT FACILITIES TECHNICIAN Wheezing PULMONARY FUNCTION TEST (PFT) Routine 12/08/2024 12:26 PM PLANT FACILITIES TECHNICIAN Wheezing XR CHEST PA LATERAL 2 VIEWS Routine 11/24/2024 2:45 PM PLANT FACILITIES TECHNICIAN Wheezing DIFFERENTIAL AUTO Routine 11/24/2024 2:4 0 PM PLANT FACILITIES TECHNICIAN Wheezing CBC WITH AUTO DIFFERENTIAL Routine 11/24/2024 2:40 PM PLANT FACILITIES TECHNICIAN Wheezing ERYTHROCYTE SEDIMENTATION RATE Routine 11/24/2024 2:40 PM PLANT FACILITIES TECHNICIAN Wheezing Severe persistent asthma with exacerbation (HCC) ALBUMIN CREATININE RATIO, URINE Routine 10/23/2024 4:29 PM PLANT FACILITIES TECHNICIAN Type 1 diabetes mellitus not at goal (HCC) POCT HEMOGLOBIN A1C Routine 10/23/2024 3 :31 PM PLANT FACILITIES TECHNICIAN Type 1 diabetes mellitus with hyperglycemia (HCC) POCT GLUCOSE Routine 10/23/2024 3:31 PM PLANT FACILITIES TECHNICIAN Type 1 diabetes mellitus with hyperglycemia (HCC) CARDIOLOGY DOCUMENT SCAN 10/15/2024 EGFR Routine 10/09/2024 1:44 PM PLANT FACILITIES TECHNICIAN Stage 3a chronic kidney disease (HCC) Benign essential hypertension Pure hypercholesterolemi a Class 3 severe obesity due to excess calories with serious comorbidity and body mass index (BMI) of 40.0 to 44.9 in adult (HCC) Vitamin D deficiency DIAGNOSTIC MAMMOGRAM BILATERAL W KAYLEEN Schedule Routine, Read Routine (OP Routine) 09/02/2024 11:01 AM CDT Breast lump in female Breast cancer screening by mammogram HEPATITIS C ANTIBODY Routine 06/19/2024 3:00 PM CDT Encounter for hepatitis C screening test for low risk patient LIPID PANEL Routine 06/19/2024 3:00 PM CDT Type 1 diabetes mellitus with diabetic peripheral angiopathy without gangrene (HCC) THYROID FUNCTION CASCADE Routine 06/19/2024 3:00 PM CDT Type 1 diabetes mellitus with diabetic peripheral angiopathy without gangrene (HCC) from Last 3 Months or Most Recently Relevant to Health Maintenance Results * (ABNORMAL) Urinalysis reflex to microscopic and culture Urine, clean voided (12/31/2024 9:21 AM PLANT FACILITIES TECHNICIAN) Color, ur Yellow Yellow Clarity, ur Turbid(A) Clear CERNER CH Specific gravity, ur 1.012 1.003 - 1.030 CERNER CH pH, urine 8.5 CERNER CH Comment: Interpretive Data U rine pH is affected by diet, medications, systemic acid-base disturbances, and renal tubular function. pH may affect urinary stone formation. For example, urine pH below 6.0 may help reduce the tendency for calcium phosphate stones and pH greater than 6.0 may reduce the tendency for uric acid stone formation. Source: [employer] Current Interpretive Data was last revised on 2017 Protein, ur ql 1+(A) Negative CERNER CH Glucose, ur ql 2+(A) Negative CERNER CH Ketones, ur Negative Negative CERNER CH Bilirubin, ur Negative Negative CERNER CH Blood, ur Negative Negative CERNER CH Urobilinogen, ur <2.0 <2.0 mg/dL CERNER CH Nitrite, ur Positive(A) Negative CERNER CH Leukocyte esterase, ur 4+(A) Negative CERNER CH UA reflex comment Reflex to microscopic UA will be performed. CERNER CH Urine, clean voided 12/31/2024 9:21 AM PLANT FACILITIES TECHNICIAN 12/31/2024 3:12 PM PLANT FACILITIES TECHNICIAN us Dunia Cano NP LAB MICROBIOLOGY - GENERAL ORDER REZA Final Result Performing Organization Address [facility] Co de Phone Number KENIADENNY ALVARADO [address] Department [place] [address] * (ABNORMAL) Urinalysis, microscopic only (12/31/2024 9:21 AM PLANT FACILITIES TECHNICIAN) WBC, ur 0-5 0 - 5 /HPF RBC, ur 11-20(A) 0 - 2 /HPF CERNER CH Epithelial cells, squamous, ur 1-5 0 - 5 /HPF CERNER CH Mucous, ur Present(A) CERNER CH Triple phosphate crystals, ur Trace(A) CERNER CH Culture Reflex Comment Reflex conditions for urine culture (WBC >10) not met. CERNER Urine, clean voided 12/31/2024 9:21 AM PLANT FACILITIES TECHNICIAN 12/31/2024 3:20 PM PLANT FACILITIES TECHNICIAN us Dunia Cano NP LAB URINE ORDERABLES Final Resul t Performing Organization Address [facility] Co de Phone Number YANNICK ALVARADO [address] Department [place] [address] * XR Chest Pa Lateral 2 Views (12/08/2024 12:45 PM PLANT FACILITIES TECHNICIAN) Anatomical Region Laterality Modality Body, Chest N/A Computed Radiogr aphy 12/08/2024 12:4 9 PM PLANT FACILITIES TECHNICIAN Impressions 12/08/2024 12:49 PM PLANT FACILITIES TECHNICIAN Comparison is made to prior chest radiograph 11/24/2024. Heart size is normal. Lungs are clear. Tracheostomy tube again noted. Electronically signed by: Pantera Kennedy M.D. Narrative 12/08/2024 12:49 PM PLANT FACILITIES TECHNICIAN EXAMINATION: 2 view chest radiograph Procedure Note Pantera Kennedy MD - 12/08/2024 EXAMINATION: 2 view chest radiograph IMPRESSION: Comparison is made to prior chest radiograph 11/24/2024. Heart size is normal. Lungs are clear. Tracheostomy tube again noted. Electronically signed by: Pantera Kennedy M.D. Jack Roth MD IMG XR PROCEDURES Fi nal Result * Pulmonary Function Test - (12/08/2024 12:26 PM PLANT FACILITIES TECHNICIAN) FVC PRE 1.49 L [facility] FVC %PRE PRED 48 % [facility] FVC POST 1.42 L [facility] FVC %POST PRED 46 % [facility] FEV1 PRE 1.23 L [facility] FEV1 %PRE PRED 48 % [facility] FEV1 POST 1.15 L [facility] FEV1 %POST PRED 44 % [facility] FEV1/FVC PRE 82.4 % [facility] FEV1/FVC POST 80.7 % [facility] FRC PL PRE 2.78 L [facility] FRC PL %PRE PRED 105 % [facility] RV PRE 2.42 L [facility] RV %PRE PRED 152 % [facility] TLC PRE 4.33 L [facility] TLC %PRE PRED 91 % [facility] DLCO PRE 13.6 ml/min/mmH g [facility] DLCO %PRE PRED 68 % [facility] FIO2 % 21.00 % [facility] PaO2 69.0 mmHg [facility] PaCO2 45.0 mmHg [facility] pH 7.41 [facility] A-aDO2 POC 24.0 mmHg [facility] COHb POC 0.5 % [facility] HCO3 28.5 mEq/L [facility] Anatomical Region Laterality Modality PFT 12/08/2024 11:0 4 AM PLANT FACILITIES TECHNICIAN Addenda Addendum by Mark Jiang MD on 12/10/2024 2:52 PM PLANT FACILITIES TECHNICIAN Table formatting from the original result was not included. [facility] Division of Pulmonary & Critical Care Medicine [address] [place] [address]; [place] [address]; [place] [address]; [phone] Pulmonary Function Laboratory Pulmonary Stress Test Simple/Oxygen Assessment Patient: Yudelka Alvarez Date: 12/08/2024 : 1980 Ht: 62 IN Wt: 217 LBS Time (min) Distance (ft)/ [place] O2 L/M SpO2 HR [place]* BP FEV1 % Pred Rest: RA 96 73 0 126/60 1.23 48 % Walk/Bike: 1 RA 100 77 0 2 RA 99 82 1 3 RA 99 80 2 4 RA 99 84 3 5 6 min 0 sec Recovery: 1 RA 97 80 3 148/64 1.15 44% 3 RA 100 75 1 *[place] rate of perceived exertion (1-10 dyspnea scale) Ruben, CHEST 2003; [id number] Walk Test Summary: Six Minute Walk Distance: 300 ft Six-minute Walk Work [distance (m) x body wt (kg)]: 8984 kg.m (normal >60,000kg.m) Oxygen required to maintain SpO2 greater than 90% during six minutes of walkin L/M Comments: ROLLATOR USED- 1 STOP- PATIENT STOPPED AT 4 MIN DUE TO LEG PAIN. Interpretation: Breathing room air, SpO2 is normal at rest and during exercise sufficient to increase pulse, SpO2 is stable. On this basis, SpO2 is adequate at rest breathing room air and while walking breathing room air. This level of exercise is associated with no significant change of FEV1. By signing this report, the attending pulmonary physician certifies that he/she has personally reviewed and interpreted the graphic and numerical data associated with this pulmonary function study and has reviewed and /or edited a preliminary draft report and agrees with the written final report. Narrative 12/08/2024 9:52 PM PLANT FACILITIES TECHNICIAN PFT performed at:->[facility] Adult PFT Lab- [facility] Procedure:->Spirometry Procedure:->Spirometry with Bronchodilator Procedure:->Oxygen Assessment Titration Procedure:->DLCO Procedure:->Lung Volumes Procedure:->ABG with Co-oximetry Lung Volumes via:->Pleth with Airway Resistance DLCO:->Spirometry Air Type:->Room Air Pulmonary Function Test Interpretation SPIROMETRY: The FEV1 and FVC are reduced in a pattern suggestive of a restrictive abnormality. There is no significant improvement after inhaling a single dose of albuterol. The inspiratory loop is appropriate for the expiratory flow abnormality. LUNG VOLUMES: TLC measured by plethysmography is normal. The increased RV suggests air trapping. Overweight status may be the cause of the decreased ERV. DLCO: Low inhaled volume may result in underestimation of actual diffusion. The diffusing capacity corrected for hemoglobin level (DLCO ADJ) is mildly decreased. ARTERIAL BLOOD GAS: There is a compensated metabolic alkalosis. The arterial pO2 is below the lower limit of normal for the patient's age at rest. The COHb level is 0.5%. Normal is less than 2%. Measured hemoglobin is 12.7 g/dL. Impression: There is a non-specific ventilatory defect. There is air trapping. There is a mild impairment of alveolar gas exchange by DLCO. There is no impairment of gas exchange at rest by ABG. There is mild hypoventilation. The COHb level is consistent with current non-smoking status. The attending pulmonary physician certifies a physician presence in the [facility] during the administration of aerosolized bronchodilator. The attending pulmonary physician certifies that he/she has reviewed and interpreted the graphic and numerical data of this pulmonary function study and agrees with the written final report. The lower limit of normal for PaO2 and %HbO2 is age dependent. However, the [facility] Pulmonary Function Laboratory defines hypoxemia as a PaO2 <56 mm Hg or a %HbO2 <89%. Starting on November of 2024 the [facility] Pulmonary Function Laboratory utilizes race neutral [employer] normative equations. Jack Roth MD PFT ORDERABLES Edit ed Result - Final * XR Chest Pa Lateral 2 Views (11/24/2024 2:45 PM PLANT FACILITIES TECHNICIAN) Anatomical Region Laterality Modality Body, Chest N/A Digital Radiogra phy 11/25/2024 11:4 6 AM PLANT FACILITIES TECHNICIAN Narrative 11/25/2024 11:50 AM PLANT FACILITIES TECHNICIAN EXAM DESCRIPTION: XR CHEST PA LATERAL 2 VIEWS REASON FOR STUDY: cough Pt complains of cough x 2.5 weeks Pt has two stents and history of heart disease and asthma. Ex-smoker; quitting November 2023. Pt smoked for about 20 years, 1/2 PPD TECHNIQUE: 2 radiographic view(s) of the chest. COMPARISON: 09/18/2024 FINDINGS: No consolidation, pulmonary edema, pleural effusion or pneumothorax. Heart size and mediastinal contours are normal. Tracheostomy. IMPRESSION: No acute cardiopulmonary abnormality. THIS IS AN ELECTRONICALLY VERIFIED FINAL REPORT 11/25/2024 11:50 AM - Electronically signed by Dave Raphael M.D. AG T: Report ID: [id number] Reading Location: [place] [address] Procedure Note Dave Raphael MD - 11/25/2024 EXAM DESCRIPTION: XR CHEST PA LATERAL 2 VIEWS REASON FOR STUDY: cough Pt complains of cough x 2.5 weeks Pt has two stents and history of heart disease and asthma. Ex-smoker; quitting November 2023. Pt smoked forabout 20 years, 1/2 PPD TECHNIQUE: 2 radiographic view(s) of the chest. COMPARISON: 09/18/2024 FINDINGS: No consolidation, pulmonary edema, pleural effusion orpneumothorax. Heart size and mediastinal contours are normal. Tracheostomy. IMPRESSION: No acute cardiopulmonary abnormality. THIS IS AN ELECTRONICALLY VERIFIED FINAL REPORT 11/25/2024 11:50 AM - Electronically signed by Dave Raphael M.D. AG T: Report ID: [id number] Reading Location: [place] [address] us Jaspreet Junior MD IMG XR PROCEDURES Final Res ult * (ABNORMAL) Differential, auto (11/24/2024 2:40 PM PLANT FACILITIES TECHNICIAN) Neutrophil abs 8.4(H) 1.5 - 6.5 K/cumm Imm gran abs 0.0 0.0 - 0.1 K/cumm CERNER CH Lymphocyte abs 1.6 0.8 - 3.3 K/cumm CERNER CH Monocyte abs 0.8 0.2 - 0.8 K/cumm CERNER CH Eosinophil abs 0.2 0.0 - 0.5 K/cumm CERNER CH Basophil abs 0.1 0.0 - 0.1 K/cumm CERNER CH Neutrophil pct 75.7 % [facility] Comment: Interpretive Data Percent cell count reference ranges are not reported, since discordance with absolute values may lead to misinterpretation of CBC data. Current Interpretive Data was last revised on 2018. Imm gran pct 0.3 % [facility] Comment: Interpretive Data Percent cell count reference ranges are not reported, since discordance with absolute values may lead to misinterpretation of CBC data. Current Interpretive Data was last revised on 2018. Lymphocyte pct 14.5 % [facility] Comment: Interpretive Data Percent cell count reference ranges are not reported, since discordance with absolute values may lead to misinterpretation of CBC data. Current Interpretive Data was last revised on 2018. Monocyte pct 7.0 % [facility] Comment: Interpretive Data Percent cell count reference ranges are not reported, since discordance with absolute values may lead to misinterpretation of CBC data. Current Interpretive Data was last revised on 2018. Eosinophil pct 2.0 % [facility] Comment: Interpretive Data Percent cell count reference ranges are not reported, since discordance with absolute values may lead to misinterpretation of CBC data. Current Interpretive Data was last revised on 2018. Basophil pct 0.5 % [facility] Comment: Interpretive Data Percent cell count reference ranges are not reported, since discordance with absolute values may lead to misinterpretation of CBC data. Current Interpretive Data was last revised on 2018. Blood 11/24/2024 2:40 PM PLANT FACILITIES TECHNICIAN 11/24/2024 9:05 PM PLANT FACILITIES TECHNICIAN us Jaspreet Junior MD LAB BLOOD ORDERABLES Final Result [facility] [address] Department [place] [address] * (ABNORMAL) CBC with auto differential (11/24/2024 2:40 PM PLANT FACILITIES TECHNICIAN) WBC 11.1(H) 3.8 - 9.9 K/cumm Hgb 12.8 11.9 - 15.5 g/dL [facility] Hct 40.4 35.6 - 45.5 % [facility] Plt 324 150 - 400 K/cumm [facility] MPV 9.9 9.1 - 12.3 fL [facility] RBC 4.43 3.90 - 5.20 M/cumm [facility] MCV 91.2 81.3 - 96.4 fL [facility] MCH 28.9 27.1 - 33.3 pg [facility] MCHC 31.7(L) 32.3 - 35.7 g/dL [facility] RDW CV 12.9 11.1 - 14.9 % [facility] RDW SD 42.7 35.7 - 48.1 fL [facility] NRBC abs 0.00 0.00 - 0.01 K/cumm [facility] Blood 11/24/2024 2:40 PM PLANT FACILITIES TECHNICIAN 11/24/2024 9:05 PM PLANT FACILITIES TECHNICIAN Jaspreet Junior MD LAB BLOOD ORDERABLES Final Result Performing Organization Address [facility] Phone Number [facility] [id number] [place] [address] * (ABNORMAL) Erythrocyte sedimentation rate (11/24/2024 2:40 PM PLANT FACILITIES TECHNICIAN) Erythrocyte sedimentation rate 24(H) 1 - 20 mm/hr Blood 11/24/2024 2:40 PM PLANT FACILITIES TECHNICIAN 11/24/2024 9:05 PM PLANT FACILITIES TECHNICIAN Jaspreet Junior MD LAB BLOOD ORDERABLES Final Result Performing Organization Address [facility] de Phone Number [facility] [address] [address] Department [place] [address] * (ABNORMAL) Albumin Creatinine Ratio, Urine (10/23/2024 4:29 PM PLANT FACILITIES TECHNICIAN) Albumin Ur 41.7 mg/L Comment: Interpretive Data No reference range established. Current interpretive data was last revised 2019. Creatinine Ur 66.7 mg/dL [facility] Comment: Interpretive Data No reference range established. Current interpretive data was last revised 2019. Albumin Creatinine Ratio, Ur 63(H) 1 - 29 mg/g YANNICK ALVARADO Urine 10/23/2024 4:29 PM PLANT FACILITIES TECHNICIAN 10/23/2024 7:26 PM PLANT FACILITIES TECHNICIAN Shelley Chavez MD LAB URINE ORDERABLE S Final Result YANNICK [address] [address] Department [place] [address] * POCT hemoglobin A1c (10/23/2024 3:31 PM PLANT FACILITIES TECHNICIAN) Hemoglobin A1C, POC 10.5 4.0 - 5.6 % Blood 10/23/2024 3:31 PM PLANT FACILITIES TECHNICIAN Shelley Chavez MD POINT OF CARE TEST ORDERABLES Final Result * POCT glucose (10/23/2024 3:31 PM PLANT FACILITIES TECHNICIAN) Pathologist [facility] Glucose Blood, POC 275 mg/dL Blood 10/23/2024 3:31 PM PLANT FACILITIES TECHNICIAN Shelley Chavez MD POINT OF CARE TEST ORDERABLES Final Result * Cardiology Document Scan (10/15/2024) Anatomical Region Laterality Modality Other us Provider Scanning CV CARDIAC SERVICES PROCEDURES Final Result * (ABNORMAL) eGFR (10/09/2024 1:44 PM PLANT FACILITIES TECHNICIAN) eGFR 34(L) >=60 mL/min/1. 73 m2 Comment: Interpretive Data Reference Interval Normal >/= 90 mL/min/1.73m2 Mildly decreased* 60 - 89 mL/min/1.73m2 Mildly to moderately decreased 45 - 59 mL/min/1.73m2 Moderately to severely decreased 30 - 44 mL/min/1.73m2 Severely decreased 15 - 29 mL/min/1.73m2 Kidney Failure < 15 mL/min/1.73m2 *Relative to young adult level Estimated glomerular filtration rate is determined by the 2020 CKD-EPI equation recommended by the National Kidney [employer] (A Unifying Approach to GFR Estimation: Recommendations of the NKF-ASK Task Force on Reassessing the Inclusion of Race in Diagnosing Kidney Disease, JASN 2020). The CKD-EPI equation should not be used for patients with unstable renal function and has not been validated in children and those over 70. Current interpretive data was last reviewed 2021. Blood 10/09/2024 1:44 PM PLANT FACILITIES TECHNICIAN 10/09/2024 2:33 PM PLANT FACILITIES TECHNICIAN us Katty Bronson MD LAB BLOOD ORDERABLES Fi nal Result YANNICK MONTEJO [facility] [place] [address] * DIAGNOSTIC MAMMOGRAM BILATERAL W KAYLEEN (09/02/2024 11:01 AM CDT) Anatomical Region Laterality Modality Breast Bilateral Mammography 09/02/2024 12:1 8 PM CDT Impressions 09/02/2024 1:22 PM CDT 1. No suspicious findings in the RIGHT breast. 2. Diagnostic mammogram and targeted sonographic evaluation in the area of palpable concern in the LEFT breast demonstrated no suspicious findings. Recommend annual screening mammogram. OVERALL FINAL ASSESSMENT: BI-RADS Category 1: Negative. RECOMMENDATION: Annual screening mammography is recommended. Dr. Ray Gutierrez MD discussed the above findings and recommendations with the patient, who expressed her understanding of the management plan. Dictated by: Ray Gutierrez MD The radiology attending physician has personally reviewed this study, and had reviewed and/or edited this written report and agrees with it. Electronically signed by: Jimmy Mendoza MD Narrative 09/02/2024 1:22 PM CDT EXAMINATION: BILATERAL DIGITAL DIAGNOSTIC MAMMOGRAM INCLUDING CAD AND BILATERAL DIGITAL BREAST TOMOSYNTHESIS; LEFT BREAST SONOGRAM HISTORY: 44-year-old with palpable abnormality in the LEFT breast. Presents for new baseline mammogram. COMPARISON: Chest CT 07/25/2024. TECHNIQUE: Full field digital mammographic views of BOTH breasts were performed, including computer aided detection (CAD) and BILATERAL digital breast tomosynthesis (DBT). Directed ultrasound evaluation of the LEFT breast was performed. Examination somewhat technically challenging due to the patient's difficulty in maintaining breath-hold secondary to history of tracheostomy. BREAST PARENCHYMAL COMPOSITION: There are scattered areas of fibroglandular density. MAMMOGRAM FINDINGS: RIGHT breast: No suspicious mass, calcification or architectural distortion is identified. LEFT breast: No suspicious mass, calcification or architectural distortion is identified. Postsurgical changes are noted. Additional views in the region of palpable concern along the inner margin of the LEFT breast were also performed, including tangential views which did not demonstrate a mass or architectural distortion underlying the palpable marker. SONOGRAM FINDINGS: Targeted sonographic evaluation the area of palpable concern was performed. No suspicious mass, or cystic lesion was identified. Dr. Ray Gutierrez MD (assistant vice president) personally participated in sonographic imaging of this patient. PHYSICAL EXAMINATION: Physical examination in the area of palpable concern in the LEFT breast demonstrated a linearly oriented bandlike ridge of dense tissue, favored to represent a structural element within the breast. Procedure Note Jimmy Mendoza MD - 09/02/2024 EXAMINATION: BILATERAL DIGITAL DIAGNOSTIC MAMMOGRAM INCLUDING CAD AND BILATERAL DIGITAL BREAST TOMOSYNTHESIS; LEFT BREAST SONOGRAM HISTORY: 44-year-old with palpable abnormality in the LEFT breast. Presents for new baseline mammogram. COMPARISON: Chest CT 07/25/2024. TECHNIQUE: Full field digital mammographic views of BOTH breasts were performed, including computer aided detection (CAD) and BILATERAL digital breast tomosynthesis (DBT). Directed ultrasound evaluation of the LEFT breast was performed. Examination somewhat technically challenging due to the patient's difficulty in maintaining breath-hold secondary to history of tracheostomy. BREAST PARENCHYMAL COMPOSITION: There are scattered areas of fibroglandular density. MAMMOGRAM FINDINGS: RIGHT breast: No suspicious mass, calcification or architectural distortion is identified. LEFT breast: No suspicious mass, calcification or architectural distortion is identified. Postsurgical changes are noted. Additional views in the region of palpable concern along the inner margin of the LEFT breast were also performed, including tangential views which did not demonstrate a mass or architectural distortion underlying the palpable marker. SONOGRAM FINDINGS: Targeted sonographic evaluation the area of palpable concern was performed. No suspicious mass, or cystic lesion was identified. Dr. Ray Gutierrez MD (assistant vice president) personally participated in sonographic imaging of this patient. PHYSICAL EXAMINATION: Physical examination in the area of palpable concern in the LEFT breast demonstrated a linearly oriented bandlike ridge of dense tissue, favored to represent a structural element within the breast. IMPRESSION: 1. No suspicious findings in the RIGHT breast. 2. Diagnostic mammogram and targeted sonographic evaluation in the area of palpable concern in the LEFT breast demonstrated no suspicious findings. Recommend annual screening mammogram. OVERALL FINAL ASSESSMENT: BI-RADS Category 1: Negative. RECOMMENDATION: Annual screening mammography is recommended. Dr. Ray Gutierrez MD discussed the above findings and recommendations with the patient, who expressed her understanding of the management plan. Dictated by: Ray Gutierrez MD The radiology attending physician has personally reviewed this study, and had reviewed and/or edited this written report and agrees with it. Electronically signed by: Jimmy Mendoza MD us Dunia Cano NP IMG MAMMO PROCEDURES Final Resul t * Thyroid Function [place] (06/19/2024 3:00 PM CDT) TSH 2.39 0.30 - 4.20 mcIUnit/mL Blood 06/19/2024 3:00 PM CDT 06/19/2024 7:55 PM CDT us Dunia Cano NP LAB BLOOD ORDERABLES Final Resul t [facility] [id number] [facility] Department [place] [address] * Hepatitis C antibody Blood (06/19/2024 3:00 PM CDT) Hep C Ab Nonreactive Nonreactive Comment: Interpretive Data Nonreactive: Antibodies to HCV not detected. Does NOT exclude the possibility of recent exposure to HCV. Equivocal: Equivocal for HCV antibodies. Supplemental molecular testing will be automatically performed to determine infection status in accordance with current CDC screening recommendations. Reactive: Positive for HCV antibodies. This may represent current or past HCV infection. Supplemental molecular testing will be automatically performed to determine current infection status in accordance with current CDC screening recommendations. Interpretive data was last revised on 2020. Blood 06/19/2024 3:00 PM CDT 06/19/2024 7:55 PM CDT us Dunia Cano NP LAB MICROBIOLOGY - GENERAL ORDER REZA Final Result YANNICK ALVARADO [address] Department [place] [address] * Lipid panel (06/19/2024 3:00 PM CDT) Cholesterol 143 30 - 199 mg/dL Comment: Interpretive Data Ages < or = 19 years Acceptable: <170 mg/dL Borderline high: 170-199 mg/dL High: >or= 200 mg/dL Ages > or = 20 years Desirable: <200 mg/dL Borderline high: 200-239 mg/dL High: >or= 240 mg/dL Literature References: 1. Expert Panel on Integrated Guidelines for Cardiovascular Health and Risk Reduction in Children and Adolescents. Pediatrics 2011;128:S213 2. NCEP Expert Panel. Circulation 2004;110:227 Current Interpretive Data was last revised on 2018. Triglycerides 103 <=149 mg/dL YANNICK ALVARADO Comment: Interpretive Data Ages < or = 9 years Acceptable: <75 mg/dL Borderline high: 75-99 mg/dL High: >or= 100 mg/dL Ages 10 to 20 years Acceptable: <90 mg/dL Borderline high: 90-129 mg/dL High: >or= 130 mg/dL Ages > or = 20 years Desirable: <150 mg/dL Borderline high: 150-199 mg/dL High: 200-499 mg/dL Very high: >or= 499 mg/dL Literature References: 1. Expert Panel on Integrated Guidelines for Cardiovascular Health and Risk Reduction in Children and Adolescents. Pediatrics 2011;128:S213 2. NCEP Expert Panel. Circulation 2004;110:227 Current Interpretive Data was last revised on 2018. HDL 47 >=40 mg/dL YANNICK ALVARADO Comment: Interpretive Data Ages < or = 19 years Acceptable: >45 mg/dL Borderline low: 40-45 mg/dL Low: <40 mg/dL Ages > or = 20 years Desirable: >or= 60 mg/dL Low: <40 mg/dL Literature References: 1. Expert Panel on Integrated Guidelines for Cardiovascular Health and Risk Reduction in Children and Adolescents. Pediatrics 2011;128:S213 2. NCEP Expert Panel. Circulation 2004;110:227 Current Interpretive Data was last revised on 2018. LDL, calculated 75 <=129 mg/dL YANNICK ALVARADO Comment: Interpretive Data Ages < or = 19 years Acceptable: <110 mg/dL Borderline high: 110-129 mg/dL High: >or= 130 mg/dL Ages > or = 20 years Optimal: <100 mg/dL Near optimal: 100-129 mg/dL Borderline high: 130-159 mg/dL High: >160 mg/dL Literature References: 1. Expert Panel on Integrated Guidelines for Cardiovascular Health and Risk Reduction in Children and Adolescents. Pediatrics 2011;128:S213 2. NCEP Expert Panel. Circulation 2004;110:227 Current Interpretive Data was last revised on 2018. Non-HDL Cholesterol 96 mg/dL YANNICK ALVARADO Comment: Interpretive Data Ages < or = 19 years Acceptable: <120 mg/dL Borderline high: 120-144 mg/dL High: >145 mg/dL Ages > or = 20 years When triglycerides are >200 mg/dL, Non-HDL cholesterol is a secondary target of therapy with treatment goals that are 30 mg/dL greater than the LDL cholesterol target. Literature References: 1. Expert Panel on Integrated Guidelines for Cardiovascular Health and Risk Reduction in Children and Adolescents. Pediatrics 2011;128:S213 2. NCEP Expert Panel. Circulation 2004;110:227 Current Interpretive Data was last revised on 2018. Chol/HDL ratio 3 YANNICK ALVARADO Blood 06/19/2024 3:00 PM CDT 06/19/2024 7:55 PM CDT us Dunia Cano NP LAB BLOOD ORDERABLES Final Resul t YANNICK ALVARADO [address] Department [place] [address] from Last 3 Months or Most Recently Relevant to Health Maintenance Insurance [facility] Advance Directives For more information, please contact: [phone] Documents on File Type Date Recorded Patient Extras Casting Director Expl anation ADVANCE DIRECTIVE 01/17/2024 3:49 PM Jacobo Alvarez [facility] ER OF DIRECTOR SURFACE TRANSPORTATION-MEDICAL * Full Code (Latest Code Status on File) Date Activated Date Inactivated Comments 07/23/2024 7:55 AM 07/26/2024 7:14 PM * Full Code Date Activated Date Inactivated Comments 07/03/2024 11:59 PM 07/11/2024 8:53 PM * Full Code Date Activated Date Inactivated Comments 01/15/2024 1:00 AM 02/24/2024 7:27 PM Healthcare Agents on File Name Relationship Healthcare Agent Relationship Communication Jacobo Alvarez Spouse Health Care Agent Care Teams Tube Filler Relationship Specialty Start Date End Date Dunia Cano NP [address] [facility] [address] [place], [place] [id number] PCP - General Family Medicine 08/16/23 Rogers Vazquez MD [address] [facility] [address] [place] [address] Consulting Physician Obstetrics and Gynecology 02/10/22 Nguyễn Howell MD [address] [place] [address] Referring Physician Ophthalmology 08/16/23 Teddy Lawton DO [address] [place] [address] Consulting Physician Nephrology 08/20/23
--- OUTSIDE RECORDS SUMMARY | 2025-01-08 02:54 | XMS_ITS | Encounter Summary ---
Author Organization [facility] Healthcare Address [address] [place] [address] Care Team Providers Care Optomechanical Technician Name Role Phone Rogers Vazquez MD Unavailable [phone] Dunia Cano NP Primary Care Provider [phone] Nguyễn Howell MD Unavailable [phone] Teddy Lawton DO Unavailable [phone] Encounter Details Date Type Department Care Team (Late st Contact Info) Description 12/31/2024 Results Follow-Up [facility] Medical Group Primary Care at [address] [address] Dunia Cano NP [address] [place] [address] [address] [place] [address] Social History Tobacco Use Types Packs/Day Years Used Date Smoking Tobacco: Former Cigarettes 0 11/14/2022 - 11/2023 Smokeless Tobacco: Never [facility] Utilities Answer Date Recorded In the past 12 months has [employer] electric, gas, oil, or water company threatened to shut off services in your [...] often do you attend chur ch or restorationism services? Never 07/04/2024 Do you belong to any clubs o r organizations such as mosque groups, unions, fraternal or athletic groups, or [...] place to sleep or slept in a custodial (including now)? No 01/29/2024 PHQ-9 Answer Date [...] any time in the past 12 m [facility], were you homeless or living in a custodial (including now)? No 07/04/2024 Personal Safety Answer Date Recorded Have you ever been in or are you currently in a harmful physical or emotional relationship or is someone making you feel afraid or unsafe? 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 Gender Identity Not on file Sexual Orientation Not on file documented as of this encounter Ordered Prescriptions Prescription Sig Dispense Quantity Refills Last Filled Start Date End Date nitrofurantoin monohydrate (MACROBID) 100 mg capsule Take 1 capsule (100 mg total) by mouth 2 (two) times a day for 7 days 14 capsule 12/31/2024 documented in this encounter Plan of Treatment Not on file documented as of this encounter Visit Diagnoses Not on filedocumented in this encounter Care Teams Optomechanical Technician Relationship Specialty Start Date End Date Dunia Cano NP [address] [facility] [address] [place] [address] PCP - General Family Medicine 08/16/23 Rogers Vazquez MD [address] [facility] [address] [place] [address] Consulting Physician Obstetrics and Gynecology 02/10/22 Nguyễn Howell MD [address] [place] [address] Referring Physician Ophthalmology 08/16/23 Teddy Lawton DO [address] [place] [address] Consulting Physician Nephrology 08/20/23 documented as of this encounter
--- OUTSIDE RECORDS SUMMARY | 2025-01-08 02:54 | XMS_ITS | Clinical Summary ---
Author Organization [facility] Facility Address [address] [place] [address] Care Team Providers Care Livestock Counter Name Role Phone Dunia Reynolds MD Primary Care Provider [phone] Medications chlorthalidone 25 MG tablet Take 1 tablet (25 mg total) by mouth 1 (one) time each day in the morning 90 tablet 1 07/17/2023 Active Social History Tobacco Use Types Packs/Day Years Used Date Smoking Tobacco: Never Assessed Comments Unknown Sex and Gender Information Value Date Recorded Sex Assigned at Not on file Legal Sex Female 11:00 AM EDT Gender Identity Not on file Sexual Orientation Not on file Last Filed Vital Signs Vital Sign Reading Time Taken Comments Blood Pressure 150/60 07/17/2023 2:24 PM CDT Pulse 89 07/17/2023 2:24 PM CDT Temperature 36.1 C (97 F) 07/17/2023 2:24 PM CDT Respiratory Rate 18 07/17/2023 2:24 PM CDT Oxygen Saturation 97% 07/17/2023 2:24 PM CDT Inhaled Oxygen Concentration - - Weight 109 kg (241 lb) 07/17/2023 2:24 PM CDT Height - - Body Mass Index - - Plan of Treatment Health Maintenance Due Date Last Done Comments Hepatitis B Vaccine (1 of 3 - 19+ 3-dose series) 01/04/1999 Pneumococcal Vaccine: Pediat rics (0 to 5 Years) and At-Risk Patients (6 to 64 Years) (2 of 2 - PCV) 09/05/2006 09/05/2005 Diabetes: Ophthalmology Exam 04/10/2023 Diabetes: Pedal Pulse Checked 04/10/2023 Diabetes: Sensory Foot Exam 04/10/2023 Diabetes: Visual Foot Exam 04/10/2023 Diabetes: Hemoglobin A1C 11/16/2023 08/16/2023 Influenza Vaccine (#1) 2024 2, 08/11/2021, 08/25/2020, Additional history exists Insurance [facility] ([facility]) Advance Directives Documents on File Type Date Recorded Patient Hospice Liaison Expl anation Advance Care Planning 07/19/2023 1:33 PM Care Teams Livestock Counter Relationship Specialty Start Date End Date Dunia Reynolds MD [address] [address] PCP - General Endocrinology 04/05/23
--- OUTSIDE RECORDS SUMMARY | 2025-01-08 02:54 | XMS_ITS | Clinical Summary ---
Author Organization [facility] Address [address] [place] [address] Care Team Providers Care Hoe Worker Name Role Phone Rogers Vazquez MD Unavailable [phone] Dunia Cano NP Primary Care Provider [phone] Nguyễn Howell MD Unavailable [phone] Teddy Lawton DO Unavailable [phone] Allergies Active Allergy Reactions Criticality Noted Date [...] 2 (two) times a day 60 tablet 11 2024 Active atorvastatin (LIPITOR) 40 mg tablet Take 1 tablet (40 mg total) by mouth daily 30 tablet 2024 Active isosorbide mononitrate ER (IMDUR) 60 mg 24 hr tablet Take 1 tablet (60 mg total) by mouth every morning 30 tablet 11 2024 Active albuterol HFA (PROVENTIL HFA,VENTOLIN HFA,PROAIR HFA) 90 mcg/actuation inhaler Inhale 2 puffs every 6 (six) hours as needed for wheezing 3 each 4 024 2024 Active clotrimazole 1 % cream Apply topically 2 (two) times a day 30 g 1 Active insulin pump cart,auto,BT,G6/ 7 (Omnipod 5 G6-G7 Pods, Gen 5,) cartridge Change pod every 3 days 60 each 3 Active lansoprazole (PREVACID) 30 mg capsuleIndicatio ns:Gastroesophag eal reflux disease, unspecified whether esophagitis present Take 1 capsule (30 mg total) by mouth daily 90 capsule 1 Active tiotropium bromide (SPIRIVA RESPIMAT) 2.5 mcg/actuation inhaler Inhale 2 puffs daily 1 g 3 Active gabapentin (NEURONTIN) 100 mg capsule TAKE [...] TRANSMITTER EVERY 90 DAYS 1 each 3 Active Dexcom G6 Sensor deviceIndication s:Type 1 diabetes mellitus with hyperglycemia (HCC) CHANGE SENSOR EVERY 10 DAYS 3 each 11 Active losartan (COZAAR) 50 mg tablet Take 1 tablet (50 mg total) by mouth daily 30 tablet 025 2025 Active vortioxetine (TRINTELLIX) 5 mg [...] TWICE DAILY NEEDED FOR ANXIETY 60 tablet Active revefenacin (Yupelri) 175 mcg/3 mL solution [...] after use. Do not swallow. 10.2 g 11 025 Active HumaLOG 100 unit/mL vial for injectionIndicat [...] 11/24/2024 Assessment & Plan (11/24/2024 9:35 PM OUTSIDE SALES REPRESENTATIVE): Breztri trial; hold Symbicort and Spiriva while [...] 09/25/2024 Assessment & Plan (09/25/2024 4:56 PM OUTSIDE SALES REPRESENTATIVE): Pt states using cpap for 8 hours/night [...] lasix. More recently patient was hospitalized at [facility] on 07/03/24 for volume overload and COVID-19 [...] 07/04/2024 Assessment & Plan (10/14/2024 4:17 PM OUTSIDE SALES REPRESENTATIVE): Continue Lasix, ARB, blood pressure control. Add metolazone as needed for weight gain. No SGLT2 inhibitor given type 1 diabetes. Assessment & Plan (09/18/2024 2:53 PM OUTSIDE SALES REPRESENTATIVE): Discussed monitoring weights, fluid intake. Recently increased [...] mellitus Assessment & Plan (09/18/2024 3:27 PM OUTSIDE SALES REPRESENTATIVE): Uncontrolled, last A1c 9.3. Sees endocrinology in [...] trach placement, JOHN PAUL on CKD requiring COPY CENTER SPECIALIST and CAD s/p LHC with JAQUELIN x2 to the mid LAD and proximal RCA. She had trach placed on 12/07 and was vent dependent. She was admitted at [facility] in 01/2024 with increasing volume overload, increased tracheal secretions hyponatremia, and JOHN PAUL. Her CT scan on 01/07 that was notable for bilateral mymd-pp-phfomucn pleural effusions with diffuse groundglass opacities and consolidations with interlobular septal thickening likely representing moderate to severe pulmonary edema. Tracheal aspirate on 01/12/24 was notable for MSSA (s/p 7 days abx). CXR on admission to [facility] on 01/13 showed moderate pulmonary edema and [...] 01/24/2024 Assessment & Plan (10/14/2024 4:17 PM OUTSIDE SALES REPRESENTATIVE): Continue dual antiplatelet therapy, statin. Start monotherapy [...] AM CDT): FEN/ Dysphagia/GERD: passed FEES per LINING BASTER on 01/19 for nectar thick liquids, reg [...] 09/26/2022 Assessment & Plan (10/28/2024 8:05 PM OUTSIDE SALES REPRESENTATIVE): Chronic, worsening Discussed about healthy lifestyle habits [...] 12/06/2021 Assessment & Plan (09/18/2024 3:27 PM OUTSIDE SALES REPRESENTATIVE): As above. Assessment & Plan (06/19/2024 3:01 PM CDT): Has slightly worsened over the past 3 weeks d/t family members recent passing. Will monitor but no medication changes today. Atherosclerosis of muscogee ar carolyn of both lower extremities with intermittent claudication 10/05/2021 Assessment & Plan (06/19/2024 3:02 PM CDT): New referral to Vascular has been placed already. Encouraged to make this appt. Assessment & Plan (10/06/2021 12:41 PM OUTSIDE SALES REPRESENTATIVE): Impression: Nondisabling claudication of both lower extremities [...] 05/20/2021 Assessment & Plan (10/28/2024 8:06 PM OUTSIDE SALES REPRESENTATIVE): , uncontrolled, worsening Hemoglobin A1c 10.5% Goal [...] qhs Assessment & Plan (09/26/2022 11:09 AM OUTSIDE SALES REPRESENTATIVE): Chronic stable Well controlled Continue current medications at current dose Assessment & Plan (10/05/2021 2:12 PM OUTSIDE SALES REPRESENTATIVE): Impression: Stable chronic hyperlipidemia. Plan: Medications reviewed I recommend continuing daily statin regimen as directed by patient's primary care physician. Thyroid nodule 05/26/2017 Assessment & Plan (08/16/2023 10:24 AM CDT): Last ultrasound took place 04/2022, updated ultrasound ordered Stage 3a chronic kidney disease 03/04/2017 Assessment & Plan (09/18/2024 3:29 PM OUTSIDE SALES REPRESENTATIVE): Stable. Follows with nephrology. Assessment & Plan (07/26/2024 9:54 AM CDT): Per chart review, baseline creatinine is 1.4-1.6 since 2020. Had JOHN PAUL on CKD requiring COPY CENTER SPECIALIST in 11/2023 with recovery of renal function. [...] 2/2 to HTN and DM. Recently required COPY CENTER SPECIALIST from 11/26 to approx 2/5. Cr at time of DC 1.5. Cr [...] 10:25 AM CDT): Has upcoming appointment with [facility] 08/21/23. Considered adjusting BP medications but Nephrology has been managing so will hold off. 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 Continue home Trazodone 100mg [...] from the Clonazepam. Patient agreeable to Psychiatry. [place] information provided for patient to start getting established. Patient's insurance limits referral options. Assessment & Plan (09/26/2022 11:09 AM OUTSIDE SALES REPRESENTATIVE): Discussed her clonazepam because she reports issues [...] 12/15/2013 Assessment & Plan (09/18/2024 2:54 PM OUTSIDE SALES REPRESENTATIVE): BP overall controlled in office today. Assessment & Plan (07/26/2024 9:54 AM CDT): Has been consistently hypertensive this admission, up to 190s/70s. - continuing home Coreg, IMDUR, Amlodipine, Clonidine - started Hydral TID - consider starting ACEi/ARB as outpatient, with additional benefit given CKD and HFpEF Assessment & Plan (08/16/2023 10:25 AM CDT): Has upcoming appointment with [facility] 08/21/23. Considered adjusting BP medications but Nephrology has been managing so will hold off. Assessment & Plan (10/05/2021 2:11 PM OUTSIDE SALES REPRESENTATIVE): Impression: Stable chronic hypertension. Plan: Medications reviewed [...] 75mg BID 02/07, 50 BID 02/08, DC 02/09. Assessment & Plan (08/16/2023 8:35 AM CDT): [...] monitor. Assessment & Plan (09/26/2022 11:09 AM OUTSIDE SALES REPRESENTATIVE): Chronic stable Well controlled Continue current medications [...] as above. 02/17: pseudohyponatremia 2/2 hyperglycemia. Monitor. Ns=989 02/20. Physical deconditioning 01/24/2024 08 Assessment & Plan (06/19/2024 3:03 PM CDT): [...] assist x2 to stand and step, PT 318 stood with min A x 2 to [...] knee pain. PM&R states MRI would not record changer tester. S/p steroid injection on 02/14. Left knee pain improved. 02/18 PFW 180ft with 6 breaks. 02/19 36ft x 10. 02/20 90ft x 6=572nh. 02/22 WW x 50ft x 6. Pain [...] 01/19 to HHTC with VBG 7.42/40 on 318 am. Trach collar 24hr as tolerated, LINING BASTER FEES 01/19 noted collapsed L aretenoid, R [...] Shiley XL, Proximal, Cuffless #5 on 01/31. Alden sob 02/04 am. Improved with albuterol neb. Check CXR-NAD. did trach change 02/18. Acute pulmonary edema 01/14/20242023 Assessment & Plan (02/10/2024 11:12 AM CDT): p/w weeks of progressive volume overload and pulmonary edema. CXR with moderate pulmonary edema. Recent Chest CT on 01/07 with bilateral mgkb-zr-zyhunpns pleural effusions with bhf-nz-ziirxt pulmonary edema. BNP 9.7k (b/l 150). Trop 11>10>12. Suspect 12/07 to HF exacerbation vs less likely acute [...] daily 02/07 and monitor. Heart palpitations 02/10/2022 4 Bursitis of shoulder 09/08/2021 022 Headache 09/08/2021 07/04/2024 Assessment & Plan (08/16/2023 10:26 AM CDT): Patient used to see Neurology and receive Botox injections and has tried multiple medications with not much success. New Neuro referral placed. Bereavement, uncomplicated 12/10/2020 0 02/10/2022 Nicotine dependence 03/10/2017 02/11/20 22 At risk of disease 03/02/2016 Recurrent loss, currently 5 02/10/2022 Migraine 12/15/2013 [...] 5U TIDAC + HDSSI [facility]. Patient previously on omnipod [...] also. Assessment & Plan (09/26/2022 11:10 AM OUTSIDE SALES REPRESENTATIVE): Needs insulin refill Well controlled Assessment & Plan (03/17/2022 4:35 PM CDT): Will start victiza to help with weight loss and glucose Assessment & Plan (10/05/2021 2:14 PM OUTSIDE SALES REPRESENTATIVE): Impression: Uncontrolled type 1 diabetes with current use of insulin pump. Most recent on 03/19 was 11.8%. Plan: Discussed with patient importance of glucose control and dietary modifications and the negative affects of her uncontrolled diabetes on her cardiovascular system specifically her lower extremity arterial occlusive disease. Encounters Date Type Department Care Team Description 2025 Telephone [facility] Cardiology [address] [facility] Office Building [address] [place] [phone] Sharri Manuel 12/31/2024 9:21 AM OUTSIDE SALES REPRESENTATIVE - 12/31/2024 11:59 PM OUTSIDE SALES REPRESENTATIVE Hospital Encounter [address] [address] Burning with urination Discharge Disposition: Discharge to home or self care 12/31/2024 9:15 AM OUTSIDE SALES REPRESENTATIVE Lab [facility] Outpatient Lab at [address] [phone] 12/31/2024 Results Follow-Up [facility] Primary Care at [address] [phone] Dunia Cano NP 12/24/2024 Telephone [facility] [id number] [place] [address] [address] [place] [phone] Lala Camacho NP 12/22/2024 Telephone [facility] Pulmonary [address] [facility] 8th [place] [address] [place] [phone] Luc Biswas, RN 12/22/2024 Orders Only [facility] Pulmonary [address] [facility] 8th [place] [address] [place] [phone] Luc Biswas, RN 12/11/2024 Orders Only [facility] ENT [address] [facility] [address] [place] [phone] Liz Blanco MD 12/08/2024 1:00 PM OUTSIDE SALES REPRESENTATIVE Office Visit [facility] Pulmonary [address] [facility] [place] Office Building [address] [place] [phone] Jack Roth MD Moderate persistent asthma without complication (Primary Dx); Tracheostomy dependence (HCC); Recurrent pneumonia 12/08/2024 12:34 PM OUTSIDE SALES REPRESENTATIVE - 12/08/2024 11:59 PM OUTSIDE SALES REPRESENTATIVE Hospital Encounter [facility] [address] [place] [address] Wheezing Discharge Disposition: Discharge to home or self care 12/08/2024 10:45 AM OUTSIDE SALES REPRESENTATIVE - 12/08/2024 11:59 PM OUTSIDE SALES REPRESENTATIVE Hospital Encounter [facility] PFT Lab [address] [facility] Office Building [address] [place] [phone] Wheezing Discharge Disposition: Discharge to home or self care 12/08/[address] [facility] Primary Care at [address] [phone] Dunia Cano NP 12/04/2024 2:20 PM OUTSIDE SALES REPRESENTATIVE Office Visit [facility] ENT [address] [facility] Building [address] [place] [phone] Liz Blanco MD Tracheostomy dependence (HCC) (Primary Dx); Wheezing; Obesity, unspecified class, unspecified obesity type, unspecified whether serious comorbidity present; Other specified diabetes mellitus with other specified complication, unspecified whether [facility] insulin use (HCC) 12/04/2024 Orders Only [facility] ENT [address] [facility] [address] [place] [address] Liz Blanco MD Tracheostomy dependence (HCC) (Primary Dx) 11/25/2024 Telephone [facility] Primary Care at [address] [phone] Dunia Cano NP 11/24/2024 2:45 PM OUTSIDE SALES REPRESENTATIVE Lab [facility] Outpatient Lab at [address] [phone] Thyroid nodule (Primary Dx); Wheezing 11/24/2024 2:45 PM OUTSIDE SALES REPRESENTATIVE Ancillary Procedure [facility] Imaging at [address] [phone] 11/24/2024 2:40 PM OUTSIDE SALES REPRESENTATIVE - 11/24/2024 11:59 PM OUTSIDE SALES REPRESENTATIVE Hospital Encounter [address] [address] Wheezing; Severe persistent asthma with exacerbation (HCC) Discharge Disposition: Discharge to home or self care 11/24/2024 1:45 PM OUTSIDE SALES REPRESENTATIVE Office Visit [facility] Primary Care at [address] [phone] Jaspreet Junior MD Wheezing (Primary Dx); Severe persistent asthma with exacerbation (HCC) 11/24/2024 Telephone [facility] Diabetes and Endocrinology [address] [place] [phone] Shelley Whitt MD 10/23/2024 4:29 PM OUTSIDE SALES REPRESENTATIVE - 10/23/2024 11:59 PM OUTSIDE SALES REPRESENTATIVE Hospital Encounter [address] [address] Type 1 diabetes mellitus not at goal (HCC) Discharge Disposition: Discharge to home or self care 10/23/2024 3:30 PM OUTSIDE SALES REPRESENTATIVE Office Visit [facility] [phone] [place] [address] [address] [place] [address] Shelley Whitt MD Type 1 diabetes mellitus with hyperglycemia (HCC) (Primary Dx); Class 2 severe obesity due to excess calories with serious comorbidity and body mass index (BMI) of 39.0 to 39.9 in adult (HCC) 10/23/[address] [facility] Primary Care at [address] [phone] Dunia Cano NP Authorization/Certif ication 10/16/2024 2:00 PM OUTSIDE SALES REPRESENTATIVE Office Visit [facility]ph[facility] 5th [place] [address] [place] [phone] Stage 3a chronic kidney disease (HCC) (Primary Dx) 10/15/2024 1:45 PM OUTSIDE SALES REPRESENTATIVE Ancillary Procedure [facility] [address] [facility] 8th [place] [address] [place] [phone] Palpitations 10/15/2024 Orders Only [facility] C[facility]IOLOGY Scanning, Provider 10/15/2024 Orders Only [facility] [address] [facility] [address] [place] [phone] Tanvir Graves MD Palpitations (Primary Dx) 10/14/2024 1:30 PM OUTSIDE SALES REPRESENTATIVE Office Visit [facility] [address] [facility] [address] [place] [phone] Tanvir Graves MD Palpitations (Primary Dx); Acute on chronic diastolic congestive heart failure (HCC); Coronary artery disease involving muscogee coronary artery of muscogee heart without angina pectoris from Last 3 Months Immunizations Immunization Administration Dates Next Due H1N1 Inj 08/19/2010 Influenza, Quadrivalent, Spl it, Intramuscular 08/25/2020,09/23/2019 Influenza, Quadrivalent, Spl it, Preservative Free, Intramuscular 08/11/2021,09/03/2018 Influenza, Trivalent, IM (MDV) 09/22/2016,2012 Influenza, Trivalent, Preser vative Free, Intramuscular 09/18/2024,09/05/2005 Influenza, Unspecified 11/05/2023(Deferr ed: Patient Refused),11/05/2022(Deferred: Patient Refused),07/31/2022 Pneumococcal Conjugate Pcv20 06/19/2024 Pneumococcal Polysaccharide PPV23 09/05/2005 Tdap 06/19/2019 Surgical History Surgery Date Site/Laterality Comments EYE SURGERY Eye Surgery - laser surgery 09/09,01/08,,10/09 (Added by TW Conv) OVARY SURGERY 11/05/1999 - 11/04/2000 Ovarian Surgery - laparoscopy ovarian cysts (Added by TW Conv) CATARACT EXTRACTION 2020 CHOLECYSTECTOMY 11/05/2006 - 11/04/2007 DILATION AND CURETTAGE OF UTERUS x3 CARDIAC CATHETERIZATION 11/05/2023 - 12/05/2023 Stent x2 placed Medical History Medical History Date Comments Chronic kidney disease Type 2 diabetes mellitus (HCC) Hyperlipidemia HTN (hypertension) Anxiety 2000 Asthma 2007 Depression 2000 Migraines 2010 Tracheitis due to Staphylococcus infection 01/23 Allergic rhinitis 11/2004 Dizziness 11/2020 Coronary artery disease 11/2023 History of transfusion 01/2024 Cataract [id number] Anemia Heart disease Family History Medical History Relation Name Comments Hyperlipidemia Father Gene Nadeen Migraines Father Gene Nadeen Family history of migraine headaches - (Added by TW Conv) Heart attack Maternal Grandfather Ruslan Heart disease Maternal Grandfather Ruslan Hypertension Maternal Grandfather Ruslan Allergy (severe) Maternal Grandmother Adrianne Diabetes Maternal Grandmother Adrianne Heart attack Maternal Grandmother Adrianne Heart disease Maternal Grandmother Adrianne Hypertension Maternal Grandmother Adrianne Stroke Maternal Grandmother Adrianne Depression Mother Asiya Diabetes Mother Asiya Hypertension Mother Asiya Memory loss Mother Asiya Stroke Mother Asiya Cancer Other 1 Cancer - stomac h great grandmother (Added by TW Conv) Diabetes type II Other 2 Type II Krista betes Mellitus - grandparents (Added by TW Conv) Lupus Other 3 Systemic Lupus Erythematosus - grandfather (Added by TW Conv) Hypertension Other 4 Hypertension - father and grandparents (Added by TW Conv) Heart disease Other 5 Heart Disease - grandmother (Added by TW Conv) Heart attack Paternal Grandfather Jewel Heart disease Paternal Grandfather Jewel Hypertension Paternal Grandfather Jewel Cancer Paternal Grandmother Rebecca Hypertension Paternal Grandmother Rebecca Allergy (severe) Sister Luz Depression Sister Luz Drug abuse Sister Luz Mental illness Sister Luz Relation Name Status Comments Father Zeyad Senior Maternal Grandfather Ruslan Maternal Grandmother Adrianne Mother Asiya Other 1 Other 2 Other 3 Other 4 Other 5 Paternal Grandfather Jewel Paternal Grandmother Rebecca Sister Luz Social History Tobacco Use Types Packs/Day Years Used Date Smoking Tobacco: Former Cigarettes 0 11/14/2022 - 11/2023 Smokeless Tobacco: Never Tobacco Cessation:Counseling Given: Not Answered [facility] Utilities Answer Date Recorded In the past 12 months has [employer], gas, oil, or water [employer] threatened to shut off services in your [...] week 07/04/2024 How often do you attend [facility] or quaker services? Never 07/04/2024 Do you belong to any clubs o r organizations such as amish groups, unions, fraternal or athletic groups, or [...] money to buy more. Never true 07/04/20 Within the past 12 months, t he [...] place to sleep or slept in a mcc (including now)? No 01/29/2024 PHQ-9 Answer Date [...] any time in the past 12 m [facility], were you homeless or living in a mcc (including now)? No 07/04/2024 Personal Safety Answer Date Recorded Have you ever been in or are you currently in a harmful physical or emotional relationship or is someone making you feel afraid or unsafe? Denies 07/29/2024 Comments No Sex and Gender Information Value Date Recorded Sex Assigned at Not on file Legal Sex Female 2:55 AM OUTSIDE SALES REPRESENTATIVE Gender Identity Not on file Sexual Orientation Not on file Obstetrics History Last Filed Vital Signs Vital Sign Reading Time Taken Comments Blood Pressure 128/68 12/08/2024 1:07 PM OUTSIDE SALES REPRESENTATIVE Pulse 77 12/08/2024 1:07 PM OUTSIDE SALES REPRESENTATIVE Temperature 36.2 C (97.2 F) 12/08/2024 1:07 PM OUTSIDE SALES REPRESENTATIVE Respiratory Rate 20 11/24/2024 1:51 PM OUTSIDE SALES REPRESENTATIVE Oxygen Saturation 96% 11/24/2024 1:51 PM OUTSIDE SALES REPRESENTATIVE Inhaled Oxygen Concentration - - Weight 98.4 kg (217 lb) 12/08/2024 1:07 PM OUTSIDE SALES REPRESENTATIVE Height 157.5 cm (5' 2 ) 12/08/2024 1:07 PM OUTSIDE SALES REPRESENTATIVE Body Mass Index 39.69 12/08/2024 1:07 PM OUTSIDE SALES REPRESENTATIVE Plan of Treatment Health Maintenance Due Date Last Done Comments Cervical Cancer Screening 1980 Colon Cancer Screening-Colonoscopy 1980 Dilated Eye Exam 01/04/1990 Hepatitis B Screening 01/04/1998 Regular Well Visit/Exam 18-64 09/26/2023 09/26/2022 Covid-19 Vaccine ( season) 2024 01/12/2022, 06/24/2021, 06/03/2021 Hemoglobin A1C 04/23/2025 10/23/2024, 06/05, 01/15/2024, Additional history exists Lipid Panel 06/19/2025 06/19/2024, 08/05, 09/26/2022, Additional history exists TSH Level 06/19/2025 06/19/2024, 01/03, 01/15/2024, Additional history exists Breast Cancer Screening-Mammogram 09/02/2025 09/02/2024 Depression Screening 09/18/2025 09/18/2024, 07/31/2024, 06/19/2024, Additional history exists eGFR 10/09/2025 10/09/2024, 08/06, 08/07/2024, Additional history exists Albumin Creatinine Ratio, Urine 10/23/2025 10/23/2024, 08/16/2023, 09/26/2022 Foot Exam 10/23/2025 10/23/2024, 06/19/2024 Varicella Vaccines (1 of 2 - 13+ 2-dose series) 11/28/2025 Postponed from 01/04/1993 (Patient declined, but will receive in the future) DTaP/Tdap/Td Vaccine (2 - Td or Tdap) 06/19/2029 06/19/2019 Hepatitis C Screening Completed 06/19/2024 Pneumococcal vaccine <65 Completed 06/19/2024, 11/0 11/2004 Influenza Vaccine Completed 09/18/2024, , 08/11/2021, Additional history exists HPV Vaccines Aged Out No longer eligi ble based on patient's age to complete this topic Medical Devices Implanted Type Area Blown Film Extrusion Operator Device Identifier Shelf Expiration Date Model / Serial / Lot Stent Stent Heart Procedures Procedure Name Priority Date/Time Associated Diagnosis Comments URINALYSIS, MICROSCOPIC ONLY Routine 12/31/2024 9:21 AM OUTSIDE SALES REPRESENTATIVE Burning with urination URINALYSIS AND REFLEX TO MICROSCOPIC AND CULTURE Routine 12/31/2024 9:21 AM OUTSIDE SALES REPRESENTATIVE Burning with urination XR CHEST PA LATERAL 2 VIEWS Schedule Routine, Read Routine (OP Routine) 12/08/2024 12:45 PM OUTSIDE SALES REPRESENTATIVE Wheezing PULMONARY FUNCTION TEST (PFT) Routine 12/08/2024 12:26 PM OUTSIDE SALES REPRESENTATIVE Wheezing XR CHEST PA LATERAL 2 VIEWS Routine 11/24/2024 2:45 PM OUTSIDE SALES REPRESENTATIVE Wheezing DIFFERENTIAL AUTO Routine 11/24/2024 2:4 0 PM OUTSIDE SALES REPRESENTATIVE Wheezing CBC WITH AUTO DIFFERENTIAL Routine 11/24/2024 2:40 PM OUTSIDE SALES REPRESENTATIVE Wheezing ERYTHROCYTE SEDIMENTATION RATE Routine 11/24/2024 2:40 PM OUTSIDE SALES REPRESENTATIVE Wheezing Severe persistent asthma with exacerbation (HCC) ALBUMIN CREATININE RATIO, URINE Routine 10/23/2024 4:29 PM OUTSIDE SALES REPRESENTATIVE Type 1 diabetes mellitus not at goal (HCC) POCT HEMOGLOBIN A1C Routine 10/23/2024 3 :31 PM OUTSIDE SALES REPRESENTATIVE Type 1 diabetes mellitus with hyperglycemia (HCC) POCT GLUCOSE Routine 10/23/2024 3:31 PM OUTSIDE SALES REPRESENTATIVE Type 1 diabetes mellitus with hyperglycemia (HCC) CARDIOLOGY DOCUMENT SCAN 10/15/2024 EGFR Routine 10/09/2024 1:44 PM OUTSIDE SALES REPRESENTATIVE Stage 3a chronic kidney disease (HCC) Benign [...] culture Urine, clean voided (12/31/2024 9:21 AM OUTSIDE SALES REPRESENTATIVE) Color, ur Yellow Yellow Clarity, ur Turbid(A) [...] tendency for uric acid stone formation. Source: [employer] Current Interpretive Data was last revised on [...] to microscopic UA will be performed. CERNER Urine, clean voided 12/31/2024 9:21 AM OUTSIDE SALES REPRESENTATIVE 12/31/2024 3:12 PM OUTSIDE SALES REPRESENTATIVE us Dunia Cano NP LAB MICROBIOLOGY - GENERAL ORDER REZA Final Result Performing Organization Address [facility] Phone Number YANNICK ALVARADO [phone] [place] [address] * (ABNORMAL) Urinalysis, microscopic only (12/31/2024 9:21 AM OUTSIDE SALES REPRESENTATIVE) WBC, ur 0-5 0 - 5 /HPF RBC, ur 11-20(A) 0 - 2 /HPF CERNER CH Epithelial cells, squamous, ur 1-5 0 - 5 /HPF CERNER CH Mucous, ur Present(A) CERNER CH Triple phosphate crystals, ur Trace(A) CERNER CH Culture Reflex Comment Reflex conditions for urine culture (WBC >10) not met. CERNER Urine, clean voided 12/31/2024 9:21 AM OUTSIDE SALES REPRESENTATIVE 12/31/2024 3:20 PM OUTSIDE SALES REPRESENTATIVE us Dunia Cano NP LAB URINE ORDERABLES Final Resul t Performing Organization Address [facility] Phone Number YANINCK ALVARADO [phone] [place] [address] * XR Chest Pa Lateral 2 Views (12/08/2024 12:45 PM OUTSIDE SALES REPRESENTATIVE) Anatomical Region Laterality Modality Body, Chest N/A Computed Radiogr aphy 12/08/2024 12:4 9 PM OUTSIDE SALES REPRESENTATIVE Impressions 12/08/2024 12:49 PM OUTSIDE SALES REPRESENTATIVE Comparison is made to prior chest radiograph 11/24/2024. Heart size is normal. Lungs are clear. Tracheostomy tube again noted. Electronically signed by: Pantera Kennedy M.D. Narrative 12/08/2024 12:49 PM OUTSIDE SALES REPRESENTATIVE EXAMINATION: 2 view chest radiograph Procedure Note Pantera Kennedy MD - 12/08/2024 EXAMINATION: 2 view chest radiograph IMPRESSION: Comparison is made to prior chest radiograph 11/24/2024. Heart size is normal. Lungs are clear. Tracheostomy tube again noted. Electronically signed by: Pantera Kennedy M.D. Jack Roth MD IMG XR PROCEDURES Fi nal Result * Pulmonary Function Test - (12/08/2024 12:26 PM OUTSIDE SALES REPRESENTATIVE) Pathologist [facility] FVC PRE 1.[address] [facility] FVC %PRE PRED 48 % [facility] FVC POST [address] [facility] FVC %POST PRED 46 % [facility] FEV1 PRE [address] [facility] FEV1 %PRE PRED 48 % [facility] FEV1 POST 1.15 L [facility] FEV1 %POST PRED 44 % [facility] FEV1/FVC PRE 82.4 % [facility] FEV1/FVC POST 80.7 % [facility] FRC PL PRE 2.78 L [facility] FRC PL %PRE PRED 105 % [facility] RV PRE 2.[address] [facility] RV %PRE PRED 152 % [facility] TLC PRE 4.33 L [facility] TLC %PRE PRED 91 % [facility] DLCO PRE 13.6 ml/min/mmH g [facility] DLCO %PRE PRED 68 % [facility] FIO2 % 21.00 % [facility] PaO2 69.0 mmHg [facility] PaCO2 45.0 mmHg [facility] pH 7.41 [facility] A-aDO2 POC 24.0 mmHg [facility] COHb POC 0.5 % [facility] HCO3 28.5 mEq/L [facility] Anatomical Region Laterality Modality PFT 12/08/2024 11:0 4 AM OUTSIDE SALES REPRESENTATIVE Addenda Addendum by Mark Jiang MD on 12/10/2024 2:52 PM OUTSIDE SALES REPRESENTATIVE Table formatting from the original result was not included. [facility] Division of Pulmonary & Critical Care Medicine [address] [place] [address]; [facility]; [place] [address]; [phone] Pulmonary Function Laboratory Pulmonary Stress Test Simple/Oxygen [...] written final report. Narrative 12/08/2024 9:52 PM OUTSIDE SALES REPRESENTATIVE PFT performed at:->[facility] Adult PFT Lab- [facility] Procedure:->Spirometry Procedure:->Spirometry with Bronchodilator Procedure:->Oxygen Assessment Titration [...] and %HbO2 is age dependent. However, the [facility] Pulmonary Function Laboratory defines hypoxemia as a PaO2 <56 mm Hg or a %HbO2 <89%. Starting on November of 2024 the [facility] Pulmonary Function Laboratory utilizes race neutral [employer] normative equations. Jack Roth MD PFT ORDERABLES Edit ed Result - Final * XR Chest Pa Lateral 2 Views (11/24/2024 2:45 PM OUTSIDE SALES REPRESENTATIVE) Anatomical Region Laterality Modality Body, Chest N/A Digital Radiogra phy 11/25/2024 11:4 6 AM OUTSIDE SALES REPRESENTATIVE Narrative 11/25/2024 11:50 AM OUTSIDE SALES REPRESENTATIVE EXAM DESCRIPTION: XR CHEST PA LATERAL 2 [...] Dave Raphael M.D. AG T: Report ID: [id number] Reading Location: [place] [address] Procedure Note Dave Raphael MD - 11/25/2024 [...] Dave Raphael M.D. AG T: Report ID: [id number] Reading Location: [place] [address] us Jaspreet Junior MD IMG XR PROCEDURES Final Res ult * (ABNORMAL) Differential, auto (11/24/2024 2:40 PM OUTSIDE SALES REPRESENTATIVE) Neutrophil abs 8.4(H) 1.5 - 6.5 K/cumm Imm gran abs 0.0 0.0 - 0.1 K/cumm CERNER CH Lymphocyte abs 1.6 0.8 - 3.3 K/cumm CERNER CH Monocyte abs 0.8 0.2 - 0.8 K/cumm CERNER CH Eosinophil abs 0.2 0.0 - 0.5 K/cumm CERNER CH Basophil abs 0.1 0.0 - 0.1 K/cumm CERNER CH Neutrophil pct 75.7 % CERNER CH Comment: Interpretive Data Percent cell count reference ranges are not reported, since discordance with absolute values may lead to misinterpretation of CBC data. Current Interpretive Data was last revised on 2018. Imm gran pct 0.3 % [facility] Comment: Interpretive Data Percent cell count reference ranges are not reported, since discordance with absolute values may lead to misinterpretation of CBC data. Current Interpretive Data was last revised on 2018. Lymphocyte pct 14.5 % CERNER Comment: Interpretive Data Percent cell count reference ranges are not reported, since discordance with absolute values may lead to misinterpretation of CBC data. Current Interpretive Data was last revised on 2018. Monocyte pct 7.0 % CERNER Comment: Interpretive Data Percent cell count reference ranges are not reported, since discordance with absolute values may lead to misinterpretation of CBC data. Current Interpretive Data was last revised on 2018. Eosinophil pct 2.0 % CERNER Comment: Interpretive Data Percent cell count reference ranges are not reported, since discordance with absolute values may lead to misinterpretation of CBC data. Current Interpretive Data was last revised on 2018. Basophil pct 0.5 % [facility] Comment: Interpretive Data Percent cell count reference ranges are not reported, since discordance with absolute values may lead to misinterpretation of CBC data. Current Interpretive Data was last revised on 2018. Blood 11/24/2024 2:40 PM OUTSIDE SALES REPRESENTATIVE 11/24/2024 9:05 PM OUTSIDE SALES REPRESENTATIVE us Jaspreet Junior MD LAB BLOOD ORDERABLES Final Result [facility] [id number] [place] [address] * (ABNORMAL) CBC with auto differential (11/24/2024 2:40 PM OUTSIDE SALES REPRESENTATIVE) WBC 11.1(H) 3.8 - 9.9 K/cumm Hgb 12.8 11.9 - 15.5 g/dL [facility] Hct 40.4 35.6 - 45.5 % [facility] Plt 324 150 - 400 K/cumm [facility] MPV 9.9 9.1 - 12.3 fL [facility] RBC 4.43 3.90 - 5.20 M/cumm [facility] MCV 91.2 81.3 - 96.4 fL [facility] MCH 28.9 27.1 - 33.3 pg [facility] MCHC 31.7(L) 32.3 - 35.7 g/dL [facility] RDW CV 12.9 11.1 - 14.9 % [facility] RDW SD 42.7 35.7 - 48.1 fL [facility] NRBC abs 0.00 0.00 - 0.01 K/cumm [facility] Blood 11/24/2024 2:40 PM OUTSIDE SALES REPRESENTATIVE 11/24/2024 9:05 PM OUTSIDE SALES REPRESENTATIVE Jaspreet Junior MD LAB BLOOD ORDERABLES Final Result Performing Organization Address [facility] Co de Phone Number [facility] [address] [address] [place] [employer] [place] [address] * (ABNORMAL) Erythrocyte sedimentation rate (11/24/2024 2:40 PM OUTSIDE SALES REPRESENTATIVE) Pathologist [facility] Erythrocyte sedimentation rate 24(H) 1 - 20 mm/hr Blood 11/24/2024 2:40 PM OUTSIDE SALES REPRESENTATIVE 11/24/2024 9:05 PM OUTSIDE SALES REPRESENTATIVE Jaspreet Junior MD LAB BLOOD ORDERABLES Final Result Performing Organization Address [facility] Co de Phone Number [facility] [phone] [place] [address] * (ABNORMAL) Albumin Creatinine Ratio, Urine (10/23/2024 4:29 PM OUTSIDE SALES REPRESENTATIVE) Albumin Ur 41.7 mg/L Comment: Interpretive Data No reference range established. Current interpretive data was last revised 2019. Creatinine Ur 66.7 mg/dL [facility] Comment: Interpretive Data No reference range established. Current interpretive data was last revised 2019. Albumin Creatinine Ratio, Ur 63(H) 1 - 29 mg/g [facility] Urine 10/23/2024 4:29 PM OUTSIDE SALES REPRESENTATIVE 10/23/2024 7:26 PM OUTSIDE SALES REPRESENTATIVE us Shelley Chavez MD LAB URINE ORDERABLE S Final Result YANNICK ALVARADO [id number] [place] [address] * POCT hemoglobin A1c (10/23/2024 3:31 PM OUTSIDE SALES REPRESENTATIVE) Hemoglobin A1C, POC 10.5 4.0 - 5.6 % Blood 10/23/2024 3:31 PM OUTSIDE SALES REPRESENTATIVE us Shelley Chavez MD POINT OF CARE TEST ORDERABLES Final Result * POCT glucose (10/23/2024 3:31 PM OUTSIDE SALES REPRESENTATIVE) Glucose Blood, POC 275 mg/dL Blood 10/23/2024 3:31 PM OUTSIDE SALES REPRESENTATIVE us Shelley Chavez MD POINT OF CARE TEST ORDERABLES Final Result * Cardiology Document Scan (10/15/2024) Anatomical Region Laterality Modality Other us Provider Scanning CV CARDIAC SERVICES PROCEDURES Final Result * (ABNORMAL) eGFR (10/09/2024 1:44 PM OUTSIDE SALES REPRESENTATIVE) eGFR 34(L) >=60 mL/min/1. 73 m2 Comment: [...] last reviewed 2021. Blood 10/09/2024 1:44 PM OUTSIDE SALES REPRESENTATIVE 10/09/2024 2:33 PM OUTSIDE SALES REPRESENTATIVE us Katty Bronson MD LAB BLOOD ORDERABLES Fi nal Result YANNICK MONTEJO [facility] [place] [address] * DIAGNOSTIC MAMMOGRAM BILATERAL W KAYLEEN (09/02/2024 [...] lesion was identified. Dr. Ray Gutierrez MD (residential director) personally participated in sonographic imaging of this [...] lesion was identified. Dr. Ray Gutierrez MD (residential director) personally participated in sonographic imaging of this [...] PROCEDURES Final Resul t * Thyroid Function [place] (06/19/2024 3:00 PM CDT) TSH 2.39 0.30 - 4.20 mcIUnit/mL Blood 06/19/2024 3:00 PM CDT 06/19/2024 7:55 PM CDT us Dunia Cano NP LAB BLOOD ORDERABLES Final Resul t YANNICK [id number] [place] [address] * Hepatitis C antibody Blood [...] - GENERAL ORDER REZA Final Result YANNICK [id number] [place] [address] * Lipid panel (06/19/2024 3:00 PM CDT) [...] BLOOD ORDERABLES Final Resul t YANNICK ALVARADO [id number] [place] [address] from Last 3 Months or Most Recently Relevant to Health Maintenance Insurance [facility] Advance Directives For more information, please contact: [phone] Documents on File Type Date Recorded 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 ADVANCE DIRECTIVE 01/17/2024 3:49 PM Jacobo Jasangitaox [facility] [employer] * Full Code (Latest Code Status on File) Date Activated Date Inactivated Comments 07/23/2024 7:55 AM 07/26/2024 7:14 PM * Full Code Date Activated Date Inactivated Comments 07/03/2024 11:59 PM 07/11/2024 8:53 PM * Full Code Date Activated Date Inactivated Comments 01/15/2024 1:00 AM 02/24/2024 7:27 PM Healthcare Agents on File Name Relationship Healthcare Agent Relationship Communication Jacobo Holdenpoli Spouse Health Care Agent Care Teams Hoe Worker Relationship Specialty Start Date End Date Dunia Cano NP [address] [facility] [address] [place] [address] PCP - General Family Medicine 08/16/23 Rogers Vazquez MD [address] [facility] [address] [place] [address] Consulting Physician Obstetrics and Gynecology 02/10/22 Nguyễn Howell MD [address] [place] [address] Referring Physician Ophthalmology 08/16/23 Teddy Lawton DO [address] [place] [address] Consulting Physician Nephrology 08/20/23
[2025-01-08 03:15] LABS: Basophils Absolute Auto 0.1 K/mm3 (0.0-0.1); Basophils Percent Auto 0.6 % (0.2-1.2); Eosinophils Absolute Auto 0.4 K/mm3 (0-0.3); Eosinophils Percent Auto 3.7 % (0-4.4); Hematocrit 38.7 % (37.0-47.0); Hemoglobin 12.8 g/dL (12.0-15.0); Immature Granulocyte Absolute 0.04 K/mm3 (0.00-0.031); Immature Granulocyte Percent A 0.3 % (0-0.5); Immature Platelet Fraction Pct 1.5 % (0.9-11.2); Lymphocytes Absolute Auto 2.07 K/mm3 (0.9-3.2); Lymphocytes Percent Auto 17.6 % (18.3-44.2); Mean Corpuscular HGB Conc 33.1 g/dl (32-36); Mean Corpuscular Hemoglobin 29.3 pg (26-34); Mean Corpuscular Volume 88.6 fl (80-100); Mean Platelet Volume 9.6 fl (7.4-10.4); Monocytes Absolute Auto 0.9 K/mm3 (0.1-0.6); Monocytes Percent Auto 7.6 % (2.6-8.5); Neutrophils Absolute Auto 8.2 K/mm3 (1.3-6.7); Neutrophils Percent Auto 70.2 % (45.5-73.1); Platelet Count Result 275 k/mm3 (150-375); Red Blood Count 4.37 M/mm3 (4.2-5.4); Red Cell Distribution Width 11.9 % (11.5-14.5); White Blood Count 11.7 K/mm3 (4.5-10.0)
[2025-01-08 03:20] LABS: Alanine Aminotransferase 17 U/L (6-35); Alkaline Phosphatase 103 U/L (38-126); Anion Gap 14 mmol/L (4-12); Aspartate Amino Transferase 23 U/L (14-36); Bilirubin,Total 0.3 mg/dL (0.2-1.3); Blood Urea Nitrogen 70 mg/dL (7-17); Calcium 9.1 mg/dL (8.4-10.2); Carbon Dioxide 25 mmol/L (22-30); Chloride 94 mmol/L (98-107); Estimated CRCL calculation 33 ml/min; Estimated Glomerular Filt Rate 25; Glucose 374 mg/dL (65-110); Magnesium 2.7 mg/dL (1.6-2.3); Sodium 133 mmol/L (137-145)
[2025-01-08 03:21] LABS: Lactic Acid Reflex 1.1 mmol/L (0.7-2.0)
[2025-01-08 03:31] LABS: Prothrombin Time 13.2 Seconds (11.1-14.7)
[2025-01-08 03:32] LABS: Partial Thromboplastin Time 27.7 Seconds (22.3-36.8)
[2025-01-08 04:52] LABS: Influenza A QL RT-PCR Negative (Negative); Influenza B QL RT-PCR Negative (Negative); RSV RNA, RT-PCR Negative (Negative); SARS-CoV-2 RNA PCR Negative (Negative)
[2025-01-08 05:39] LABS: Add Urine Microscopic? YES; Appearance Urine Clear (Clear); Bacteria Urine None Seen /hpf; Bilirubin Urine Negative (Negative); Blood Urine Negative (Negative); Color Urine Yellow (Yellow); Glucose Urine UA 3+ mg/dL (Negative); Ketones Urine Negative (Negative); Leukocyte Esterase Ur Negative LEU/UL (Negative); Nitrate Urine Negative (Negative); Non Pathogenic Casts 0-2; Protein Urine Trace mg/dL (Negative); RBC Urine 0-2 /hpf (0-2); Specific Grav Ur 1.015 (1.001-1.035); Squamous Epithelial Cell Urine Occasional /hpf (Few); Urobilinogen Urine 0.2 mg/dL (<2.0); WBC Urine 0-5 /hpf (0-3)
[2025-01-08] MEDS: MORPHINE SULFATE (*CRX) 4 MG/ML INJ IV PUSH (08:43)
== END 2025-01-08 08:44 | disposition short-term general hospital (02) ==
PROVIDERS: Emergency Provider Emergency Medicine; PCP Nurse Practitioner Family
DX: R04.2 Hemoptysis (principal); Z20.822 Contact with and (suspected) exposure to COVID-19; E11.22 Type 2 diabetes mellitus with diabetic chronic kidney disease; I12.9 Hypertensive chronic kidney disease with stage 1 through stage 4 chronic kidney disease, or unspecified chronic kidney disease; N18.30 Chronic kidney disease, stage 3 unspecified; E78.5 Hyperlipidemia, unspecified; F43.22 Adjustment disorder with anxiety; F17.210 Nicotine dependence, cigarettes, uncomplicated; Z93.0 Tracheostomy status; Z93.1 Gastrostomy status; Z97.5 Presence of (intrauterine) contraceptive device; Z90.49 Acquired absence of other specified parts of digestive tract; Z79.899 Other long term (current) drug therapy; Z79.4 Long term (current) use of insulin
CPT/HCPCS: 36415; 71250; 80053; 81001; 83605; 83735; 85025; 85055; 85610; 85730; 87040; 87637; 96374; 99285; J2270